=== PATIENT | female | born 1965 | race Caucasian/White ===

== ENCOUNTER 2020-08-18 11:35 | Outpatient (REF) | payer MEDICARE, OTHER, SELFPAY ==
--- NOTE | 2020-08-18 11:39 | CT_ITS ---
EXAMINATION: CT CHEST WITHOUT CONTRAST CLINICAL INFORMATION: Follow-up pulmonary nodule COMPARISON: Previous chest CT most recent January 2020 TECHNIQUE: Multidetector volumetric CT imaging of the chest was done. Axial MIP volume rendering provided. Sagittal and coronal reformatted images were obtained. This CT examination was performed using dose optimization techniques as appropriate, variously including the following: *Automated exposure control *Adjustment of mA and/or kV according to patient size (this includes techniques or standardized protocols for targeted exams where dose is matched to indication/reason for exam; i.e. extremities or head) *Use of iterative reconstruction technique DLP: 99 mGy-cm FINDINGS: LUNGS: There is evidence of emphysema. There is increased groundglass attenuation and clustered small nodules seen in the anterior segment of the right upper lobe. This appears increased in the superiorly right upper lobe for example axial image 163 series 5 and is new more inferiorly for example axial image 194 series 5. Largest discrete nodule measures 3 mm in the right upper lobe axial image 154 series 5. There are bilateral calcified and noncalcified pulmonary nodules similar to January [address] Largest right pulmonary nodules are a noncalcified 4 mm in the right lower lobe axial image 309 series 5 and a calcified 4 mm right middle lobe nodule axial image 349 series 5. Largest left pulmonary nodule is a calcified left lower lobe nodule axial image 4 of series 5. There is a scarring or chronic subsegmental atelectasis at the lung bases that is stable. MEDIASTINUM: There are calcified and noncalcified mediastinal lymph nodes that are stable. The heart is upper normal in size. There is a small pericardial effusion or pericardial thickening that is unchanged. There is a question of coronary artery stent. The thoracic aorta is normal in caliber. PLEURA: There is no pleural effusion. No pleural mass or thickening. AXILLA: No chest wall mass or enlarged axillary lymph nodes are seen. UPPER ABDOMEN: Unremarkable. OSSEOUS STRUCTURES: There are degenerative changes of the spine. CT/CT chest wo con IMPRESSION: New and areas of groundglass attenuation and small clustered nodules, largest measuring 3 mm, in the anterior segment of the right upper lobe. Otherwise calcified and noncalcified pulmonary nodules are stable. Emphysema. Stable bibasilar atelectasis. Stable small pericardial effusion or thickening.
== END 2020-08-18 11:36 | disposition home or self-care (01) ==
LOC: HO.CT 11:35
PROVIDERS: PCP Nurse Practitioner Family; Visit Provider Surgery
DX: R91.8 Other nonspecific abnormal finding of lung field (principal)
CPT/HCPCS: 71250

== ENCOUNTER → 2020-09-12 09:34 | Outpatient (BNVA) | payer MEDICARE, OTHER, SELFPAY | PROVIDERS: PCP Nurse Practitioner Family; Visit Provider Surgery | DX: K21.9 Gastro-esophageal reflux disease without esophagitis (principal); K44.9 Diaphragmatic hernia without obstruction or gangrene; R91.8 Other nonspecific abnormal finding of lung field | CPT/HCPCS: 99215 ==

== ENCOUNTER → 2020-09-19 09:06 | Outpatient (BNVA) | payer MEDICARE, OTHER, SELFPAY | PROVIDERS: PCP Nurse Practitioner Family; Visit Provider Nurse Practitioner | DX: Z13.89 Encounter for screening for other disorder (principal) | CPT/HCPCS: 99212 ==

== ENCOUNTER → 2020-10-31 10:32 | Outpatient (BNVA) | payer MEDICARE, OTHER, SELFPAY | PROVIDERS: PCP Nurse Practitioner Family; Visit Provider Surgery | DX: K21.9 Gastro-esophageal reflux disease without esophagitis (principal); K44.9 Diaphragmatic hernia without obstruction or gangrene | CPT/HCPCS: 99212 ==

== ENCOUNTER 2020-11-10 10:00 | Day surgery (SDC) | payer MEDICARE, OTHER, SELFPAY ==
[2020-11-10 10:55] VITALS: BP 116/81; PULSE 71; RESP 18; TEMP 36.3; O2SAT 96; BMI 24.8
--- NOTE | 2020-11-10 10:56 | W.PM.OPN ---
Operative Note Operative Note Date of Service: 11/10/20 Narrative: Pre-op diagnosis: GERD, dysphagia Post-op diagnosis: other (Dysphagia, gastritis) Procedure: FLEXIBLE TRANSORAL UPPER GASTROINTESTINAL ENDOSCOPY WITH BIOPSIES AND ESOPHAGEAL BALLOON DILATION Consent: Indications for the procedure and potential complications of bleeding, perforation, reaction to medications and missed diagnosis were discussed with the patient and informed consent was obtained. Instrument: Olympus GIF H 190 mid size upper endoscope Monitoring: Vital signs and clinical assessment, continuous EKG monitoring, Pulse oximetry, Carbon Dioxide monitoring and blood pressure monitoring were done throughout the procedure. Procedure: The patient was placed in the left lateral decubitis position and pre-procedure medications were administered and a bite block was placed. The endoscope was inserted into the mouth and advanced under direct vision to the third part of duodenum. A careful inspection was made as the upper endoscope was withdrawn including a retroflexed examination of the proximal stomach; Findings and interventions are described below. Findings: Larynx: Edema of arytenoid cartilages Esophagus: Tortuous esophagus with increased tertiary contractions without stricture or ring. GE junction at 35 cms. Minimal focal esophagitis at GE junction. Empiric balloon dilation was performed with 19 mm (57 F) CRE balloon x 60 seconds. Stomach: Small amount of retained food in the stomach. Moderate gastric erythema. Biopsies were obtained. Grade 2 flap valve on retroflexed examination of the cardia. Duodenum: Normal bulb and descending duodenum Intervention: Biopsies as noted above Impression and Post Procedure Diagnosis: Endoscopy Findings: LARYNX: Changes suggestive of LPRD ESOPHAGUS: Tortuous esophagus with increased tertiary contractions without stricture or ring. GE junction at 35 cms. Minimal focal esophagitis at GE junction. Empiric balloon dilation was performed with 19 mm (57 F) CRE balloon x 60 seconds. STOMACH: Gastritis with small amount of retained food Plan: Await pathology results Patient has an appointment on 11/14/20 in the GI Clinic with Gisella Sparks NP . Consider obtaining a Gastric emptying study to rule out gastroparesis. Above findings were reviewed with the patient and GERD handout was given in the discharge area Surgeon: Je Wolff MD Anesthesia: MAC (Nataly Cuff, PAN [employer] HELPER) Estimated blood loss (mL): 0 Pathology: other (A. Gastric antrum) Condition: stable Disposition: PACU
--- NOTE | 2020-11-10 10:56 | MHC.SHP ---
Pre-Procedural Eval Section A The patient is an INPATIENT: No The History & Physical has been completed within 30 days and I have reviewed it.: No Section B Chief Complaint: dysphagia Details of Present Illness: GERD, dysphagia Relevant Family History (Specify if Yes): Yes Relevant Social History: Tobacco Use (current smoker) Present Medications: see Short Stay Collaborative assessment Medical History: Significant History (CAD (coronary artery disease) Cerebral atrophy COPD (chronic obstructive pulmonary disease) Depression Hyperlipidemia Hypertension Hypothyroid Intracranial arachnoid cyst Lumbar radiculitis Lumbar stenosis Lumbosacral pain Myocardial infarct Osteoporosis Seizure) History of Previous Operations: Relevant previous surgery/procedure and date(s) (H/O heart artery stent History of esophagogastroduodenoscopy (EGD) Hx of colonoscopy) Allergies: Allergies Allergy/AdvReac Type Severity Reaction Status Date / Time alendronate sodium Allergy Unknown PER H+P Verified 10/31/20 11:05 [From FOSAMAX] latex [LATEX] Allergy Unknown RASH Verified 10/31/20 11:05 levetiracetam [From KEPPRA] Allergy Unknown DICKENS Verified 10/31/20 11:05 morphine [MORPHINE] Allergy Unknown SWELLING Verified 10/31/20 11:05 phenytoin [From DILANTIN] AdvReac Unknown CANT Verified 10/31/20 11:05 FUNCTION Review of Systems Sugical H&P ROS: Negative: Constitution, Cardiovascular and Respiratory and Yes, Specify: Gastrointestinal (heartburn and dysphagia) Exam Surgical H&P Exam: Normal: Heart, Normal: Lungs, Normal: Extremities and Normal: Abdomen Plan Diagnosis/Plan: Unchanged I have reviewed the history and physical and performed a pertinent physical examination on my patient. No changes have occurred unless specified.
--- NOTE | 2020-11-10 11:08 | P.CONAN_ITS ---
[facility] Past Medical History Medical History CAD (coronary artery disease) Cerebral atrophy COPD (chronic obstructive pulmonary disease) Depression Hyperlipidemia Hypertension Hypothyroid Intracranial arachnoid cyst Lumbar radiculitis Lumbar stenosis Lumbosacral pain Myocardial infarct Osteoporosis Seizure Family History Family History Father Blood clots in brain Diabetes Polio Mother Breast cancer Hiatal hernia Sister Cancer Brother Myocardial infarction Family/Other Throat cancer Stomach cancer Surgical History Surgical History H/O heart artery stent History of esophagogastroduodenoscopy (EGD) History of [place] fundoplication Hx of colonoscopy Hx of esophageal hernia repair Social History Social History Alcohol intake: current Alcohol intake frequency: does not drink Smoking Status: Former smoker Tobacco Type: Cigarette Packs Per Day: 0.5 Years Smoked: 42 Use of substances other than those prescribed or required for medical reasons: No Advance Directives: No Advance Directives Information Provided: Yes Meds Allergies Allergy/AdvReac Type Severity Reaction Status Date / Time alendronate sodium Allergy Unknown PER H+P Verified 10/31/20 11:05 [From FOSAMAX] latex [LATEX] Allergy Unknown RASH Verified 10/31/20 11:05 levetiracetam [From KEPPRA] Allergy Unknown DICKENS Verified 10/31/20 11:05 morphine [MORPHINE] Allergy Unknown SWELLING Verified 10/31/20 11:05 phenytoin [From DILANTIN] AdvReac Unknown CANT Verified 10/31/20 11:05 FUNCTION Home Medications Medication Instructions Recorded Confirmed Type atorvastatin 80 mg tablet mg PO 09/12/20 History clonazepam 0.5 mg tablet mg PO 09/12/20 History diclofenac sodium 75 mg mg PO 09/12/20 History tablet,delayed release divalproex 500 mg tablet,extended mg PO 09/12/20 History release 24 hr ferrous sulfate 325 mg (65 mg mg PO 09/12/20 History iron) tablet levothyroxine 88 mcg tablet mcg PO 09/12/20 History metoprolol succinate 25 mg mg PO 09/12/20 History tablet,extended release 24 hr mirtazapine 45 mg tablet mg PO 09/12/20 History quetiapine 300 mg tablet,extended mg PO 09/12/20 History release 24 hr sertraline 100 mg tablet mg PO 09/12/20 History zolpidem 5 mg tablet mg PO 09/12/20 History hyoscyamine sulfate 0.125 mg/mL 1 ml PO QIDACHS 09/18/20 09/18/20 History oral drops pantoprazole 40 mg tablet,delayed 40 mg PO DAILY 09/18/20 09/18/20 History release Exam Exam Date and Time: November 10, 2020 1108 Height,Weight and Vital Signs: Height 4 ft 9 in Weight 52.163 kg Last Vital Signs Temp 97.3 F 11/10/20 10:55 Pulse 71 11/10/20 10:55 Resp 18 11/10/20 10:55 BP 116/81 11/10/20 10:55 Pulse Ox 96 11/10/20 10:55 Airway Mallampati Class: II TM Dist: >3cm Neck ROM: Full Denture: Upper and Lower Loose/Missing/Broken Teeth: Yes Heart: [id number] Lungs: cta b/l Assessment and Plan Assessment Anesthesia Assessment: Anesthesia Plan Discussed, PAT Visit and Chart Reviewed Final Anesthetic Review NPO: Yes ASA Class: II Final Preanesthetic Review: No Changes in Pt Med Stat, Meds/Allgs Chart Reviewed, Consent Obtained/Reviewed and Anes Risks/Benef Reviewed Patient Risk: Low Procedure Risk: Low Assessment/Block/Sedation in SS: Assess/Block/Sedation-SS Anesthetic Plan Anesthetic Plan: MAC: Disposition: Standard PACU
--- NOTE | 2020-11-10 11:10 | MHC.SHP ---
Pre-Procedural Eval Section B Chief Complaint: dysphagia Allergies: Allergies Allergy/AdvReac Type Severity Reaction Status Date / Time alendronate sodium Allergy Unknown PER H+P Verified 10/31/20 11:05 [From FOSAMAX] latex [LATEX] Allergy Unknown RASH Verified 10/31/20 11:05 levetiracetam [From KEPPRA] Allergy Unknown DICKENS Verified 10/31/20 11:05 morphine [MORPHINE] Allergy Unknown SWELLING Verified 10/31/20 11:05 phenytoin [From DILANTIN] AdvReac Unknown CANT Verified 10/31/20 11:05 FUNCTION Plan I have reviewed the history and physical and performed a pertinent physical examination on my patient. No changes have occurred unless specified.
[2020-11-10 11:54] VITALS: BP 96/63; PULSE 80; RESP 16; TEMP 36.7; O2SAT 99
[2020-11-10 12:09] VITALS: BP 121/78; PULSE 76; RESP 17; TEMP 36.7; O2SAT 99
== END 2020-11-10 12:22 | disposition home or self-care (01) ==
PROVIDERS: PCP Nurse Practitioner Family; Visit Provider Internal Medicine Gastroenterology
PROC: 0DJ08ZZ Inspection of Upper Intestinal Tract, Via Natural or Artificial Opening Endoscopic (ICD-10-PCS; CPT 43235; principal; 2020-11-10 11:20)
DX: R10.13 Epigastric pain (principal); K22.4 Dyskinesia of esophagus; K22.8 Other specified diseases of esophagus; K21.00 Gastro-esophageal reflux disease with esophagitis, without bleeding; K29.70 Gastritis, unspecified, without bleeding; I10 Essential (primary) hypertension; J44.9 Chronic obstructive pulmonary disease, unspecified; I25.2 Old myocardial infarction; I25.10 Atherosclerotic heart disease of native coronary artery without angina pectoris; Z98.61 Coronary angioplasty status; R56.9 Unspecified convulsions; Z79.899 Other long term (current) drug therapy; F17.210 Nicotine dependence, cigarettes, uncomplicated; Z91.040 Latex allergy status; Z88.0 Allergy status to penicillin
CPT/HCPCS: 43249; 43239; 88305; 88342; C1726

== ENCOUNTER 2020-11-14 09:53 | Outpatient (REF) | payer MEDICARE, OTHER, SELFPAY ==
--- NOTE | ~2020-11-14 | FL_ITS ---
EXAMINATION: FL BARIUM SWALLOW CLINICAL INFORMATION: Gastroesophageal reflux disease without esophagitis. COMPARISON: None TECHNIQUE: Barium swallow examination is performed using fluoroscopic evaluation in addition to multiple fluoroscopic spot views. The patient is imaged both upright and prone and using both thick and thin sulfate along with effervescent granules. Fluoroscopy time: 2.7 minutes DAP: 9.988 Gycm2 Images: 79 FINDINGS: Following oral administration of thick barium and barium-coated turkey, there is normal propagation of bolus from the oral cavity through the pharynx into esophagus without any evidence of obstruction or narrowing. There is mild spasm at the GE junction resulting in mild holdup of thin barium and solids. No laryngeal penetration or aspiration seen. On oral administration of barium tablet, there is transitional holdup above the GE junction. Subsequently, the barium tablet cleared on placing patient in prone position. On administration of thin barium in prone position, there is good distention of the entire esophagus without any intrinsic or extrinsic compression. No gastroesophageal reflux or hiatal hernia seen. FL/FL barium swallow IMPRESSION: Transitional holdup of solids, liquids and barium tablet at the GE junction could be secondary to spasm. Underlying stricture cannot be excluded.
== END 2020-11-14 09:54 | disposition home or self-care (01) ==
LOC: HO.XRAY 09:53
PROVIDERS: PCP Nurse Practitioner Family; Visit Provider Surgery
DX: K21.9 Gastro-esophageal reflux disease without esophagitis (principal); K44.9 Diaphragmatic hernia without obstruction or gangrene
CPT/HCPCS: 74220; 99212; Q3014

== ENCOUNTER → 2020-12-12 10:07 | Outpatient (BNVA) | payer MEDICARE, SELFPAY | PROVIDERS: PCP Nurse Practitioner Family; Visit Provider Surgery | DX: R13.10 Dysphagia, unspecified (principal); K21.00 Gastro-esophageal reflux disease with esophagitis, without bleeding; F17.210 Nicotine dependence, cigarettes, uncomplicated; Z79.899 Other long term (current) drug therapy | CPT/HCPCS: 99212 ==

== ENCOUNTER 2021-01-01 09:57 | Outpatient (REF) | payer MEDICARE, OTHER, SELFPAY ==
--- NOTE | ~2021-01-01 | FL_ITS ---
EXAMINATION: FL BARIUM SWALLOW CLINICAL INFORMATION: Gastroesophageal reflux disease with esophagitis COMPARISON: 11/14/2020 TECHNIQUE: Barium swallow examination is performed using fluoroscopic evaluation in addition to multiple fluoroscopic spot views. The patient is imaged both upright and prone and using both thick and thin sulfate along with effervescent granules. Fluoroscopy time: 1.6 minutes DAP: 2.150 Gycm2 Images: 38 FINDINGS: There is normal apposition of the vocal cords while saying E. There is normal elevation of the soft palate while saying candy. Patient swallowed thin and thick barium and 1/2 inch diameter barium tablet during the study. There is no evidence of nasopharyngeal reflux or tracheal aspiration. Cricopharyngeal hypertrophy is present without Zenker's diverticulum. No persistent esophageal stricture is identified. There is narrowing at the level of the gastroesophageal junction with delay of emptying of the esophagus of fluid with air-fluid level and distention of the distal esophagus noted. Eventually the gastroesophageal junction relaxes and contrast passes. Half-inch diameter barium tablet was hung up at the level of obstruction likely related to gastroesophageal junction spasm and passed within 10 minutes of ingestion. No persistent stricture was identified and no erosive change was seen. No gastroesophageal reflux was elicited during the study including with water siphon test. FL/FL barium swallow IMPRESSION: Esophagram with holdup of contrast and barium tablet at the gastroesophageal junction which appears to be related to spasm as described.
== END 2021-01-01 09:58 | disposition home or self-care (01) ==
LOC: HO.XRAY 09:57
PROVIDERS: PCP Nurse Practitioner Family; Visit Provider Surgery
DX: K21.00 Gastro-esophageal reflux disease with esophagitis, without bleeding (principal)
CPT/HCPCS: 74220

== ENCOUNTER → 2021-01-02 09:48 | Outpatient (BNVA) | payer MEDICARE, OTHER, SELFPAY | PROVIDERS: PCP Nurse Practitioner Family; Visit Provider Surgery | DX: R13.10 Dysphagia, unspecified (principal); K21.00 Gastro-esophageal reflux disease with esophagitis, without bleeding; K22.4 Dyskinesia of esophagus | CPT/HCPCS: 99212 ==

== ENCOUNTER 2021-01-23 11:11 | Day surgery (SDC) | payer MEDICARE, SELFPAY ==
[2021-01-19 13:54] VITALS: BMI 24.7
--- NOTE | 2021-01-21 13:01 | HO.ANESPROP2 ---
Documented by User: Sue Christina 01/21/21 13:02 HPI - Anesthesia Eval Consult details Narrative: 55yo F for Upper Endoscopy with Balloon Dilitation s/p paraesoph hernia repair and belgica fund 11/2020 s/p EGD with dilation 11/2020 with MAC PMFSH Active Problems Active Problems: All Active Problems (Updated 01/19/21 @ 13:50 by Kaycee Quinn) Multiple pulmonary nodules (Acute) GERD with esophagitis (Acute) Esophageal spasm (Acute) Dysphagia (Acute) Past Medical History Medical History CAD (coronary artery disease) Cerebral atrophy COPD (chronic obstructive pulmonary disease) Depression Hyperlipidemia Hypertension Hypothyroid Intracranial arachnoid cyst Lumbar radiculitis Lumbar stenosis Lumbosacral pain Myocardial infarct Osteoporosis Seizure Family History Family History Father Blood clots in brain Diabetes Polio Mother Breast cancer Hiatal hernia Sister Cancer Brother Myocardial infarction Family/Other Throat cancer Stomach cancer Surgical History Surgical History H/O heart artery stent History of esophagogastroduodenoscopy (EGD) History of [place] fundoplication Hx of colonoscopy Social History Social History Household Members: Other Alcohol intake: current Alcohol intake frequency: does not drink Smoking Status: Current every day smoker Tobacco Type: Cigarette Cigarettes Per Day: 10 Years Smoked: 42 Use of substances other than those prescribed or required for medical reasons: No Advance Directives Information Provided: No Recently lost weight without trying: No Meds Allergies Allergy/AdvReac Type Severity Reaction Status Date / Time latex [LATEX] Allergy Intermediate RASH Verified 01/19/21 13:50 morphine [MORPHINE] Allergy Intermediate SWELLING Verified 01/19/21 13:50 alendronate sodium Allergy Unknown PER H+P Verified 01/02/21 10:01 [From FOSAMAX] levetiracetam [From KEPPRA] AdvReac Intermediate DICKENS Verified 01/19/21 13:50 phenytoin [From DILANTIN] AdvReac Intermediate CANT Verified 01/19/21 13:50 FUNCTION Home Medications Medication Instructions Recorded Confirmed Last Taken Type clonazepam 0.5 mg tablet 0.5 mg PO DAILY PRN 09/12/20 01/19/21 Unknown History diclofenac sodium 75 mg 75 mg PO BID 09/12/20 01/19/21 Unknown History tablet,delayed release divalproex 500 mg tablet,extended 500 mg PO BID 09/12/20 01/19/21 01/23/21 History release 24 hr ferrous sulfate 325 mg (65 mg mg PO 09/12/20 01/02/21 Unknown History iron) tablet levothyroxine 88 mcg tablet 88 mcg PO DAILY 09/12/20 01/19/21 01/23/21 History metoprolol succinate 25 mg 5 mg PO DAILY 09/12/20 01/19/21 Unknown History tablet,extended release 24 hr mirtazapine 45 mg tablet 45 mg PO BEDTIME 09/12/20 01/19/21 Unknown History quetiapine 300 mg tablet,extended 300 mg PO BEDTIME 09/12/20 01/19/21 Unknown History release 24 hr sertraline 100 mg tablet 200 mg PO QAM 09/12/20 01/19/21 01/23/21 History zolpidem 5 mg tablet 5 mg PO BEDTIME 09/12/20 01/19/21 Unknown History hyoscyamine sulfate 0.125 mg/mL 1 ml PO QIDACHS 09/18/20 01/02/21 Unknown History oral drops Exam Exam Date and Time: January 21, 2021 1301 Height,Weight and Vital Signs: Height 4 ft 9 in Weight 52 kg Assessment and Plan Assessment Anesthesia Assessment: Chart Reviewed Documented by User: Juan Pablo Gary MD 01/23/21 12:31 HPI - Anesthesia Eval Consult details Narrative: Exercise Tolerance 2 METS PMFSH Past Medical History Medical History CAD (coronary artery disease) Cerebral atrophy COPD (chronic obstructive pulmonary disease) Depression Hyperlipidemia Hypertension Hypothyroid Intracranial arachnoid cyst Lumbar radiculitis Lumbar stenosis Lumbosacral pain Myocardial infarct Osteoporosis Seizure Family History Family History Father Blood clots in brain Diabetes Polio Mother Breast cancer Hiatal hernia Sister Cancer Brother Myocardial infarction Family/Other Throat cancer Stomach cancer Surgical History Surgical History H/O heart artery stent History of esophagogastroduodenoscopy (EGD) History of [place] fundoplication Hx of colonoscopy Social History Social History Household Members: Other Alcohol intake: current Alcohol intake frequency: does not drink Smoking Status: Current every day smoker Tobacco Type: Cigarette Cigarettes Per Day: 10 Years Smoked: 42 Use of substances other than those prescribed or required for medical reasons: No Advance Directives Information Provided: No Recently lost weight without trying: No Meds Allergies Allergy/AdvReac Type Severity Reaction Status Date / Time latex [LATEX] Allergy Intermediate RASH Verified 01/19/21 13:50 morphine [MORPHINE] Allergy Intermediate SWELLING Verified 01/19/21 13:50 alendronate sodium Allergy Unknown PER H+P Verified 01/02/21 10:01 [From FOSAMAX] levetiracetam [From KEPPRA] AdvReac Intermediate DICKENS Verified 01/19/21 13:50 phenytoin [From DILANTIN] AdvReac Intermediate CANT Verified 01/19/21 13:50 FUNCTION Home Medications Medication Instructions Recorded Confirmed Last Taken Type clonazepam 0.5 mg tablet 0.5 mg PO DAILY PRN 09/12/20 01/19/21 Unknown History diclofenac sodium 75 mg 75 mg PO BID 09/12/20 01/19/21 Unknown History tablet,delayed release divalproex 500 mg tablet,extended 500 mg PO BID 09/12/20 01/19/21 01/23/21 History release 24 hr ferrous sulfate 325 mg (65 mg mg PO 09/12/20 01/02/21 Unknown History iron) tablet levothyroxine 88 mcg tablet 88 mcg PO DAILY 09/12/20 01/19/21 01/23/21 History metoprolol succinate 25 mg 5 mg PO DAILY 09/12/20 01/19/21 Unknown History tablet,extended release 24 hr mirtazapine 45 mg tablet 45 mg PO BEDTIME 12/04/20 04/12/21 Unknown History quetiapine 300 mg tablet,extended 300 mg PO BEDTIME 09/12/20 01/19/21 Unknown History release 24 hr sertraline 100 mg tablet 200 mg PO QAM 09/12/20 01/19/21 01/23/21 History zolpidem 5 mg tablet 5 mg PO BEDTIME 09/12/20 01/19/21 Unknown History hyoscyamine sulfate 0.125 mg/mL 1 ml PO QIDACHS 09/18/20 01/02/21 Unknown History oral drops Exam Airway Mallampati Class: III TM Dist: >3cm Denture: Upper and Lower Loose/Missing/Broken Teeth: Yes Heart: RRR Lungs: NL Assessment and Plan Assessment Anesthesia Assessment: Anesthesia Plan Discussed and Chart Reviewed Final Anesthetic Review NPO: Yes ASA Class: III Final Preanesthetic Review: No Changes in Pt Med Stat, Meds/Allgs Chart Reviewed, Consent Obtained/Reviewed and Anes Risks/Benef Reviewed Patient Risk: Intermediate Procedure Risk: Low Anesthetic Plan Anesthetic Plan: MAC: Disposition: Standard PACU
[2021-01-23 11:22] VITALS: BP 112/81; PULSE 89; RESP 20; TEMP 36.1; O2SAT 96
[2021-01-23] MEDS: Lactated Ringers 1,000 ML 50 ML IV (11:40)
--- NOTE | 2021-01-23 11:46 | MHC.SHP ---
Pre-Procedural Eval Section B Chief Complaint: dysphagia Allergies: Allergies Allergy/AdvReac Type Severity Reaction Status Date / Time latex [LATEX] Allergy Intermediate RASH Verified 01/19/21 13:50 morphine [MORPHINE] Allergy Intermediate SWELLING Verified 01/19/21 13:50 alendronate sodium Allergy Unknown PER H+P Verified 01/02/21 10:01 [From FOSAMAX] levetiracetam [From KEPPRA] AdvReac Intermediate DICKENS Verified 01/19/21 13:50 phenytoin [From DILANTIN] AdvReac Intermediate CANT Verified 01/19/21 13:50 FUNCTION Plan I have reviewed the history and physical and performed a pertinent physical examination on my patient. No changes have occurred unless specified.
[2021-01-23 12:55] VITALS: BP 123/83; PULSE 75; RESP 22; TEMP 36.8; O2SAT 97
[2021-01-23 13:10] VITALS: BP 121/80; PULSE 67; RESP 18; O2SAT 95
--- NOTE | 2021-01-23 13:59 | OP_ITS ---
DATE: 01/23/2021 SURGEON: Eugenie Pena MD PREOPERATIVE DIAGNOSIS: POSTOPERATIVE DIAGNOSIS: PROCEDURE PERFORMED: ESTIMATED BLOOD LOSS: None. COMPLICATIONS: ANESTHESIA: MAC. ASSISTANTS: SPECIMENS: None. PREOPERATIVE DIAGNOSES: Esophageal stricture, status post fundoplication and hiatal hernia repair. DESCRIPTION OF PROCEDURE: On the day of the operation, the patient was brought to the operating room and placed supine on the operative room table. Anesthesia and monitoring devices were placed and the patient was gently sedated. She was turned to her side and a time-out was performed confirming the correct patient, site and procedure. The scope was then inserted through the oropharynx and into the esophagus and passed down to the GE junction, which was at about 33 cm. There was some mild erosion at the GE junction. No bleeding. The scope then entered the stomach, visualizing the pylorus and first portion of the duodenum which were normal. The scope was then retroflexed, visualizing the GE junction, which was normal and the scope was brought back through the GE junction, which there was a little bit of tightness at this area. The scope was then brought back to about 28 cm and the first balloon was then positioned across the stricture and starting at 15 dilated with this balloon up to 18 mm. This balloon was then removed and the area was checked and there was no bleeding or tissue damage. We then placed the 18, 19, 20 balloon across the same lesion and this was dilated serially from 18 to 19 to 20 mm. Once this was done, there was a small amount of blood and the scope did pass easier through this area now. The scope was then brought back from the stomach through the esophagus to examine the mucosa, which was normal. The esophagus did appear quite baggy at this point and tortuous. The scope was then removed. The patient tolerated the procedure well and was brought to the recovery room in stable condition. MD JULITA Bird/NAOMI / [id number] MTDTawanna
== END 2021-01-23 13:57 | disposition home or self-care (01) ==
PROVIDERS: PCP Nurse Practitioner Family; Visit Provider Surgery
PROC: (CPT 43249; principal; 2021-01-23 12:00)
DX: K22.2 Esophageal obstruction (principal); Z98.890 Other specified postprocedural states; K22.4 Dyskinesia of esophagus; K21.00 Gastro-esophageal reflux disease with esophagitis, without bleeding; K44.9 Diaphragmatic hernia without obstruction or gangrene; J44.9 Chronic obstructive pulmonary disease, unspecified; I10 Essential (primary) hypertension; Z79.82 Long term (current) use of aspirin; Z79.899 Other long term (current) drug therapy; Z91.040 Latex allergy status; Z88.8 Allergy status to other drugs, medicaments and biological substances; F17.210 Nicotine dependence, cigarettes, uncomplicated
CPT/HCPCS: 43249; C1726

== ENCOUNTER → 2021-02-06 10:07 | Outpatient (BNVA) | payer MEDICARE, SELFPAY | PROVIDERS: PCP Nurse Practitioner Family; Visit Provider Surgery | DX: K22.4 Dyskinesia of esophagus (principal); R13.10 Dysphagia, unspecified; Z87.19 Personal history of other diseases of the digestive system; Z79.899 Other long term (current) drug therapy | CPT/HCPCS: 99212 ==

== ENCOUNTER → 2021-02-10 13:47 | Outpatient (BNVA) | payer MEDICARE, SELFPAY | PROVIDERS: Visit Provider Nurse Practitioner | DX: Z13.89 Encounter for screening for other disorder (principal) | CPT/HCPCS: Q3014 ==

== ENCOUNTER → 2021-04-28 15:17 | Outpatient (BNVA) | payer MEDICARE, SELFPAY | PROVIDERS: Visit Provider Nurse Practitioner ==

== ENCOUNTER → 2021-05-01 10:37 | Outpatient (BNVA) | payer MEDICARE, SELFPAY | PROVIDERS: PCP Nurse Practitioner Family; Visit Provider Surgery | DX: K22.2 Esophageal obstruction (principal); F17.210 Nicotine dependence, cigarettes, uncomplicated; Z79.899 Other long term (current) drug therapy | CPT/HCPCS: 99212 ==

== ENCOUNTER 2021-06-05 06:40 | Day surgery (SDC) | payer MEDICARE, OTHER, SELFPAY ==
[2021-06-05 06:47] VITALS: BMI 23.8
--- NOTE | 2021-06-05 07:04 | HO.ANESPROP2 ---
HPI - Anesthesia Eval Consult details Narrative: Full covid vaccination. PMFSH Active Problems Active Problems: All Active Problems (Updated 06/02/21 @ 12:48 by Kassidy Gurrola PA-C) GERD with esophagitis (Acute) Esophageal spasm (Acute) Dysphagia (Acute) Epigastric pain (Acute) Esophageal stricture (Acute) Multiple pulmonary nodules (Acute) Past Medical History Medical History (Updated 06/02/21 @ 12:48 by Kassidy Gurrola PA-C) CAD (coronary artery disease) Cerebral atrophy COPD (chronic obstructive pulmonary disease) Depression Hyperlipidemia Hypertension Hypothyroid Intracranial arachnoid cyst Lumbar radiculitis Lumbar stenosis Lumbosacral pain Multiple pulmonary nodules Myocardial infarct Nicotine dependence, unspecified, uncomplicated On beta matty at home Osteoporosis Seizure Tubular adenoma of colon Family History Family History Father Blood clots in brain Diabetes Polio Mother Breast cancer Hiatal hernia Sister Cancer Brother Myocardial infarction Family/Other Throat cancer Stomach cancer Family history of problems with anesthesia: No Surgical History Surgical History (Updated 06/02/21 @ 12:50 by Kassidy Gurrola PA-C) History of appendectomy History of colonoscopy (~2018) History of esophagogastroduodenoscopy (EGD) (~2020) History of foot surgery (~2013) History of heart artery stent (~2004) History of [place] fundoplication (~2019) History of tubal ligation S/P dilatation of esophageal stricture (~2020) History of Problems with Anesthesia: No Social History Social History Household Members: Other Alcohol intake: current Alcohol intake frequency: does not drink Patient Tobacco Use Status: Current everyday Tobacco user Tobacco use type: Cigarette Cigarettes Per Day: 10.0 Years Smoked: 42 Use of substances other than those prescribed or required for medical reasons: No Are you DNR?: No Advance Directives: No Advance Directives Information Provided: Yes Advance Directives on File: No Meds Allergies Allergy/AdvReac Type Severity Reaction Status Date / Time latex [LATEX] Allergy Intermediate RASH Verified 05/28/21 15:12 morphine [MORPHINE] Allergy Intermediate SWELLING Verified 05/28/21 15:12 alendronate sodium Allergy Unknown PER H+P Verified 05/28/21 15:12 [From FOSAMAX] levetiracetam [From KEPPRA] AdvReac Intermediate DICKENS Verified 05/28/21 15:12 phenytoin [From DILANTIN] AdvReac Intermediate CANT Verified 05/28/21 15:12 FUNCTION Home Medications Medication Instructions Recorded Confirmed Last Taken Type clonazepam 0.5 mg tablet 0.5 mg PO DAILY PRN 09/12/20 05/28/21 06/04/21 History levothyroxine 88 mcg tablet 88 mcg PO DAILY 09/12/20 05/28/21 06/04/21 History metoprolol succinate 25 mg 5 mg PO DAILY 09/12/20 05/28/21 06/05/21 05:00 History tablet,extended release 24 hr mirtazapine 45 mg tablet 45 mg PO BEDTIME 09/12/20 05/28/21 06/04/21 History quetiapine 300 mg tablet,extended 300 mg PO BEDTIME 09/12/20 05/28/21 06/04/21 History release 24 hr zolpidem 5 mg tablet 5 mg PO BEDTIME 09/12/20 05/28/21 06/04/21 History divalproex 500 mg tablet,extended 500 mg PO BID 04/28/21 05/28/21 06/05/21 05:00 History release 24 hr sertraline 100 mg tablet 200 mg PO QAM 04/28/21 05/28/21 06/04/21 History Exam Exam Date and Time: June 05, 2021 0704 Height,Weight and Vital Signs: Height 4 ft 9 in Weight 49.895 kg Airway Mallampati Class: I TM Dist: >3cm Neck ROM: Full Denture: Upper and Lower Heart: ok Lungs: ok Assessment and Plan Assessment Anesthesia Assessment: Anesthesia Plan Discussed and Chart Reviewed Final Anesthetic Review Family History of Problems with Anesthesia: No History of Problems with Anesthesia: No NPO: Yes ASA Class: IV Final Preanesthetic Review: No Changes in Pt Med Stat, Meds/Allgs Chart Reviewed, Consent Obtained/Reviewed and Anes Risks/Benef Reviewed Patient Risk: High Procedure Risk: Intermediate Anesthetic Plan Anesthetic Plan: MAC: and Agree w/ Assess. and Plan Disposition: Standard PACU
[2021-06-05] MEDS: Lactated Ringers 1,000 ML 100 ML IVCONT (07:05)
[2021-06-05 07:06] VITALS: BP 117/84; PULSE 68; RESP 18; TEMP 36.1; O2SAT 97
[2021-06-05 07:08] LABS: Glucose, Whole Blood 82 mg/dL (60-115)
--- NOTE | 2021-06-05 08:19 | MHC.SHP ---
Pre-Procedural Eval Section A Date of Service: 06/05/21 The patient is an INPATIENT: No The History & Physical has been completed within 30 days and I have reviewed it.: No Section B Chief Complaint: obstruction Allergies: Allergies Allergy/AdvReac Type Severity Reaction Status Date / Time latex [LATEX] Allergy Intermediate RASH Verified 05/28/21 15:12 morphine [MORPHINE] Allergy Intermediate SWELLING Verified 05/28/21 15:12 alendronate sodium Allergy Unknown PER H+P Verified 05/28/21 15:12 [From FOSAMAX] levetiracetam [From KEPPRA] AdvReac Intermediate DICKENS Verified 05/28/21 15:12 phenytoin [From DILANTIN] AdvReac Intermediate CANT Verified 05/28/21 15:12 FUNCTION Plan Diagnosis/Plan: Unchanged I have reviewed the history and physical and performed a pertinent physical examination on my patient. No changes have occurred unless specified.
--- NOTE | 2021-06-05 08:44 | W.PM.OPN ---
Operative Note Operative Note Date of Service: 06/05/21 Narrative: Preoperative diagnosis: Esophageal stricture distal, history paraesophageal hernia repair Postoperative diagnosis: Same Operation: EGD with dilation Surgeon:Eugenie Pena MD [employer] To Door Salesperson: None Anesthesia: General Specimens: None EBL: Minimal Operation in detail: The patient was brought to the operating room, placed supine on the operative table, anesthesia monitoring devices were placed, and the patient was sedated. A time-out was performed confirming the correct patient, site, and procedure. The gastroscope was then inserted through the oropharynx and into the esophagus visualizing esophagus, GE junction, stomach mucosa, and 1st portion of the duodenum. The scope was then retroflexed in the stomach looking back up at the GE junction I did not appreciate a significant paraesophageal hernia recurrence. There are no lesions in the mucosa. At the GE junction there was possibly some esophagitis or pale colored mucosa possibly Brown's. There was a very slight stricture at the GE junction and the esophagus appeared quite large and baggy. The scope was positioned just above the GE junction/stricture. The balloon to lie a later was then inserted and positioned across the stricture. Balloon dilation was then done serially starting at 18 going to 19 and finishing at 20 mm. The balloon dilator was removed and the mucosa was again visualized with no evidence of injury. The scope was then removed. The patient tolerated the procedure well, and brought to the recovery room in stable condition.
[2021-06-05 08:52] VITALS: BP 83/52; PULSE 65; RESP 16; TEMP 36.2; O2SAT 94
[2021-06-05 09:07] VITALS: BP 114/62; PULSE 57; RESP 18; O2SAT 95
[2021-06-05 09:19] VITALS: BP 114/68; PULSE 53; RESP 18; O2SAT 95
== END 2021-06-05 08:44 | disposition home or self-care (01) ==
PROVIDERS: PCP Nurse Practitioner Family; Visit Provider Surgery
PROC: (CPT 43249; principal; 2021-06-05 07:30)
DX: K22.2 Esophageal obstruction (principal); I10 Essential (primary) hypertension; Z87.19 Personal history of other diseases of the digestive system
CPT/HCPCS: 43249; 82947; C1726; J2250; J3010

== ENCOUNTER → 2021-06-16 07:54 | Outpatient (REF) | payer MEDICARE, SELFPAY ==
--- NOTE | ~2021-06-16 | NM_ITS ---
EXAMINATION: RADIONUCLIDE SOLID FOOD GASTRIC EMPTYING 4-HOUR STUDY CLINICAL INFORMATION: Epigastric pain. COMPARISON: No previous gastric emptying study is available for comparison. TECHNIQUE: A standard meal consisting of 4 oz of Egg Beaters brand equivalent tagged with 610 microcuries Tc-99m Sulfur Colloid, 8 oz water and 2 slices of toast with jelly was administered orally to the patient. Images were obtained using a dual head gamma camera in the anterior and posterior projections over of the stomach immediately post ingestion and at hourly intervals up to 4 hours post ingestion. The anterior and posterior counts at each time interval were averaged using the geometric mean and expressed as percentage of the immediate post ingestion counts. FINDINGS: There is good visualization of activity in the stomach immediately post ingestion. As the study progresses, there is good clearance of activity from the stomach and visualization of progressively increasing small bowel activity. By the end of the study, there is almost no retention noted in the stomach. Retention in the stomach at each time interval was: 1 hour 63% (normal 37%-90%) 2 hours 17% (normal 30%-60%) 3 hours 9% 4 hours 4% (normal 0%-10%) NM/NM gastric emptying study IMPRESSION: Normal 4-hour solid food gastric emptying study.
== END ==
LOC: HO.NUCMED 07:54
PROVIDERS: Visit Provider Nurse Practitioner
DX: R10.13 Epigastric pain (principal)
CPT/HCPCS: 78264; A9541

== ENCOUNTER → 2021-06-26 10:49 | Outpatient (BNVA) | payer MEDICARE, SELFPAY | PROVIDERS: PCP Nurse Practitioner Family; Visit Provider Surgery | DX: K22.4 Dyskinesia of esophagus (principal); F17.210 Nicotine dependence, cigarettes, uncomplicated; Z79.899 Other long term (current) drug therapy | CPT/HCPCS: 99212 ==

== ENCOUNTER → 2021-06-29 15:58 | Outpatient (BNVA) | payer MEDICARE, SELFPAY | PROVIDERS: PCP Nurse Practitioner Family; Visit Provider Nurse Practitioner | DX: K22.4 Dyskinesia of esophagus (principal) | CPT/HCPCS: Q3014 ==

== ENCOUNTER → 2021-08-18 11:48 | Outpatient (BNVA) | payer MEDICARE, SELFPAY | PROVIDERS: PCP Nurse Practitioner Family; Referring Provider Nurse Practitioner Family; Visit Provider Nurse Practitioner | DX: K22.4 Dyskinesia of esophagus (principal); K21.00 Gastro-esophageal reflux disease with esophagitis, without bleeding | CPT/HCPCS: Q3014 ==

== ENCOUNTER 2021-12-03 11:40 | Outpatient (REF) | payer MEDICARE, SELFPAY ==
--- NOTE | ~2021-12-03 | XR_ITS ---
EXAMINATION: XR CHEST CLINICAL INFORMATION: Pleurodynia COMPARISON: August 18, 2020 CT and chest x-ray of March 20, 2019 TECHNIQUE: 2 views of the chest were obtained. FINDINGS: No definite acute parenchymal disease identified. There appears be some bibasilar scarring as well as chronic pleural-parenchymal disease with question minimal effusions. The cardiopericardial silhouette is mildly enlarged. No evidence of pulmonary edema. Coronary artery stent present. XR/XR chest 2V IMPRESSION: Bibasilar scarring with question small effusions versus chronic pleural-parenchymal disease. Cardiomegaly without pulmonary edema.
[2021-12-03 13:37] LABS: MANUAL DIFF FLAG NO
[2021-12-03 13:39] LABS: Basophils Percent Auto 0.6 % (0-2); Eosinophils Absolute Auto 0.1 X10*3/uL (0.0-0.4); Eosinophils Percent Auto 2.2 % (0-4); Hematocrit 42.8 % (37.0-47.0); Hemoglobin 14.3 g/dl (12.0-16.0); Imm Gran Abs Auto 0.03 X10*3/uL (0.00-0.03); Imm Gran Pct Auto 0.6 % (0.0-0.4); Lymphocytes Absolute Auto 1.9 X10*3/uL (1.2-4.9); Lymphocytes Percent Auto 40.3 % (20-40); Mean Corpuscular HGB Conc 33.4 g/dl (31.0-35.0); Mean Corpuscular Hemoglobin 33.6 pg (27.0-33.0); Mean Corpuscular Volume 100.7 fL (80.0-98.0); Mean Platelet Volume 10.1 fL (9.4-12.3); Monocytes Absolute Auto 0.5 X10*3/uL (0.1-1.2); Neutrophils Absolute Auto 2.1 x10*3/uL (2.0-8.3); Neutrophils Percent Auto 45.3 % (45-73); Platelet Count 244 X10*3/uL (160-400); Red Blood Count 4.25 X10*6/uL (4.20-5.50); Red Cell Distribution Width 13.5 % (11.0-16.0); White Blood Count 4.6 X10*3/uL (4.8-10.8)
[2021-12-03 14:02] LABS: Alanine Aminotransferase 7 U/L (0-31); Albumin Level 3.8 g/dL (3.5-5.0); Alkaline Phosphatase 95 U/L (39-117); Anion Gap 14 (12-20); Aspartate Amino Transferase 15 U/L (5-31); Bilirubin Total 0.3 mg/dL (0.0-1.0); Blood Urea Nitrogen 5 mg/dL (9-16); Calcium 8.6 mg/dL (8.4-10.2); Carbon Dioxide 29 mmol/L (22-29); Chloride 105 mmol/L (96-108); Cholesterol 213 mg/dL; Estimated Glomerular Filt Rate > 60; Glucose Fasting 74 mg/dL (60-99); HDL Cholesterol 64 mg/dL; LDL Cholesterol Calculated 128 mg/dl; Potassium 4.3 mmol/L (3.3-5.1); Sodium 144 mmol/L (135-145); Total Protein 6.3 g/dL (6.5-8.0); Triglycerides 108 mg/dL
[2021-12-03 14:04] LABS: Appearance Urine HAZY; Color Urine YELLOW; Glucose Urine UA NEG (NEG); Leukocyte Esterase Urine NEG (NEG); Nitrite Urine NEG (NEG); PH 7.5 (5.0-8.0); Specific Gravity - Urine 1.015 (1.005-1.025); UACC Culture Trigger NO; Urine Blood TRACE (NEG); Urine Ketones NEG (NEG); Urine Protein NEG (NEG-TRACE)
[2021-12-03 14:17] LABS: TSH reflex Free T4 3.39 uIU/mL (0.32-4.0)
[2021-12-03 14:27] LABS: Bacteria Urine 1+ /LPF; Squamous Epithelial Cell Urine 1+ /LPF; WBC Urine 0-2 /HPF (0-4)
== END 2021-12-03 11:41 | disposition home or self-care (01) ==
LOC: HO.HMGCLDS 11:40
PROVIDERS: Visit Provider Nurse Practitioner Family
DX: R07.81 Pleurodynia (principal); E03.9 Hypothyroidism, unspecified
CPT/HCPCS: 36415; 71046; 80053; 80061; 81001; 81003; 84443; 85025

== ENCOUNTER → 2021-12-18 10:41 | Outpatient (BNVA) | payer MEDICARE, SELFPAY | PROVIDERS: PCP Nurse Practitioner Family; Referring Provider Nurse Practitioner Family; Visit Provider Nurse Practitioner | DX: K21.00 Gastro-esophageal reflux disease with esophagitis, without bleeding (principal); K22.2 Esophageal obstruction; K30 Functional dyspepsia | CPT/HCPCS: 99212 ==

== ENCOUNTER → 2022-03-02 13:41 | Outpatient (REF) | payer MEDICARE, OTHER, SELFPAY ==
--- NOTE | 2022-03-02 13:46 | CA_ITS ---
Transthoracic Echocardiogram Patient (Last, First, Middle): Yuli Duke, Gender: Female Date of : 1965 Age: 56 Procedure Date: 03/02/2022 Procedure Type: Transthoracic Echocardiogram Location: OP Height: 142.24 cm Weight: 54.43 kg BSA: 1.43 m2 Heart Rate: bpm BP: 110 / 78 mmHg Layboy Operator: SB Referring MD: Srikanth Palomares [facility] Symptoms: I51.7 - Cardiomegaly Study Quality: Adequate ECG Rhythm: Sinus Conclusions: - The left ventricular systolic function is normal. The calculated ejection fraction is 61% by biplane method. - No obvious valvular pathology seen on this study. Findings Left Ventricle Normal left ventricular cavity size. There is normal left ventricular wall thickness. The left ventricular systolic function is normal. The calculated ejection fraction is 61% by biplane method. There is no evidence of regional wall motion abnormalities. Diastolic function is normal for age. Right Ventricle Normal right ventricular cavity size and systolic function. Atria Both atria are normal in size. Aortic Valve There is a normal trileaflet aortic valve. There is no aortic valve stenosis. There is no aortic valve regurgitation. Mitral Valve There is mild anterior mitral leaflet thickening. There is trace mitral valve regurgitation. There is no mitral valve stenosis. Pulmonic Valve The pulmonic valve is likely normal. Tricuspid Valve Normal tricuspid valve structure. There is trace tricuspid valve regurgitation. There is no evidence of pulmonary hypertension. Great Vessels The asc aorta is normal in size. Venous The inferior vena cava is normal in size and collapses greater than 50% with inspiration. Pericardium/Pleural There is no evidence of pericardial effusion. Prior Study Comparison No significant change compared to prior study dated: 09/24/2016. Recommendations, Care & Conclusions No obvious valvular pathology seen on this study. Measurements 2D Linear Measurements IVSd: 0.84 0.6-0.9/0.6-1.0 cm LVIDd: 4.04 3.9-5.3/4.2-5.9 cm LVIDd Index: 2.83 2.4-3.2/2.2-3.1 cm/m2 LVIDs: 2.49 2.0-3.6 cm LVPWd: 0.73 0.7-1.1 cm LA Diam: 3.30 2.7-3.8/3.0-4.0 cm LAIDs Index: 2.31 1.5-2.3 cm/m2 LV Mass: 115.54 67-162/88-224 g LV Mass Index: 80.79 43-95/49-115 g/m2 LVOT Diam: 1.90 3.0+(-)1.3 cm 2D Systolic Function EF 4C: 57.30 >55% EF 2C: 60.20 >55% EF BiP: 60.50 >55% Mitral Valve MV Pk E: 1.00 MV PK A: 0.84 MV Decel Time: 158.00 E/A: 1.20 E'Lateral: 6.74 E'Medial: 7.94 E/E' Med: 12.60 E/E' Lat: 14.80 PHT: 46.00 MVA PHT: 4.78 Decel Guthrie: 6.36 Aortic Valve AoV Pk Joselo: 1.22 AoV Mn Joselo: 0.81 AoV VTI: 0.24 AoV Pk Grad: 6.00 Aov Mn Grad: 3.00 MILAGROS Cont.VTI: 2.55 LVOT LVOT Pk Joselo: 1.01 LVOT Mn Joselo: 0.72 LVOT VTI: 0.22 LVOT Pk Grad: 4.00 LVOT Mn Grad: 2.00 LVOT Diam: 1.90 LVOT Area: 2.84 Diastolic Function MV Pk E: 1.00 MV Pk A: 0.84 E/A: 1.20 E'Medial: 7.94 E/E' Med: 12.60 E' Laterial: 6.74 E/E' Lat: 14.80 Right Ventricle TAPSE (mm): 18.10 TVS' Joselo: 8.50 Tricuspid Valve RA Press: 3.00 Great Vessels Aorta Sinus of Valsalva: 2.70 2.0-3.[address] Ridge: 2.32 1.7-3.4 cm Ao Asc: 2.70 2.1-3.4 cm Pulmonary Veins Pulm Vein S/D 1.20 Pulmonary Valve PV Pk Joselo: 0.73 Peak PV Grad: 2.00 Updated in Other Vendor System with Status of Final Cedric Alston MD electronically signed on 03/02/2022 5:13:03 PM with status of Final
== END ==
LOC: HO.CARD 13:41
PROVIDERS: PCP Nurse Practitioner Family; Visit Provider Nurse Practitioner Family
DX: I51.7 Cardiomegaly (principal)
CPT/HCPCS: 93306

== ENCOUNTER 2022-04-23 08:01 | Outpatient (REF) | payer MEDICARE, SELFPAY ==
--- NOTE | ~2022-04-23 | MM_ITS ---
EXAMINATION: MM SCREENING DIGITAL BREAST TOMOSYNTHESIS, BILATERAL CLINICAL INFORMATION: Screening. Asymptomatic. Family history breast cancer, mother. The lifetime risk of breast cancer based on the Tyrer-Cuzick Model is 22%. COMPARISON: Mammography: 07/13/2019, 07/06/2018, 06/23/2017 TECHNIQUE: Digital breast tomosynthesis is performed in both the craniocaudal and mediolateral oblique views along with computer-aided detection (CAD). Synthesized 2D images are generated from the tomosynthesis. FINDINGS: There are scattered areas of fibroglandular density (ACR BI-RADS breast composition Category b). There are no significant masses, abnormal calcifications, or other abnormalities. Parenchymal pattern is similar to prior studies. No developing density or architectural abnormality. Incidental small left axillary tail node stable. MM/MM tomosynthesis screening BI IMPRESSION: No mammographic evidence of malignancy. ASSESSMENT: BI-RADS 1: Negative RECOMMENDATION: Routine annual mammography screening. This patient's information was entered into a reminder system with a target due date for their next mammogram.
== END 2022-04-23 08:02 | disposition home or self-care (01) ==
LOC: HO.MAMMO 08:01
PROVIDERS: Visit Provider Nurse Practitioner Family
DX: Z12.31 Encounter for screening mammogram for malignant neoplasm of breast (principal)
CPT/HCPCS: 77063; 77067

== ENCOUNTER 2022-04-23 13:23 | Outpatient (REF) | payer MEDICARE, SELFPAY ==
--- NOTE | ~2022-04-23 | XR_ITS ---
EXAMINATION: XR HIPS, BILATERAL. XR KNEE, BILATERAL. CLINICAL INFORMATION: Right hip pain. Right knee pain. COMPARISON: Bilateral knees 10/18/2019 TECHNIQUE: AP and frog-lateral views of each hip. AP standing view both knees with lateral views of each knee. FINDINGS: Minimal bilateral hip osteoarthritis with small marginal osteophytes along the superior acetabular rim. Normal alignment with no fracture. No suspicious bone lesion or soft tissue calcification. Minimal medial compartment narrowing of both knees and minimal osteophyte formation of the patella bilaterally. No acute abnormality. No joint effusion. XR/XR knee standing BI IMPRESSION: Minimal bilateral hip osteoarthritis. Minimal bilateral patellofemoral compartment and right medial compartment osteoarthritis. No joint effusions. No significant change.
--- NOTE | ~2022-04-23 | XR_ITS ---
EXAMINATION: XR HIPS, BILATERAL. XR KNEE, BILATERAL. CLINICAL INFORMATION: Right hip pain. Right knee pain. COMPARISON: Bilateral knees 10/18/2019 TECHNIQUE: AP and frog-lateral views of each hip. AP standing view both knees with lateral views of each knee. FINDINGS: Minimal bilateral hip osteoarthritis with small marginal osteophytes along the superior acetabular rim. Normal alignment with no fracture. No suspicious bone lesion or soft tissue calcification. Minimal medial compartment narrowing of both knees and minimal osteophyte formation of the patella bilaterally. No acute abnormality. No joint effusion. XR/XR hips YUE min 3V IMPRESSION: Minimal bilateral hip osteoarthritis. Minimal bilateral patellofemoral compartment and right medial compartment osteoarthritis. No joint effusions. No significant change.
[2022-04-23 16:24] LABS: Urine Cytology See Pathology rpt
[2022-04-23 16:27] LABS: Appearance Urine CLEAR; Color Urine YELLOW; Glucose Urine UA NEG (NEG); Leukocyte Esterase Urine NEG (NEG); Nitrite Urine NEG (NEG); PH 6.5 (5.0-8.0); Specific Gravity - Urine 1.015 (1.005-1.025); Urine Blood NEG (NEG); Urine Ketones 5 MG/DL (NEG); Urine Protein NEG (NEG-TRACE)
[2022-04-23 16:35] LABS: RBC Urine 0 /HPF (0); Squamous Epithelial Cell Urine 2+ /LPF; WBC Urine 0 /HPF (0-4)
[2022-04-23 16:41] LABS: Alanine Aminotransferase 14 U/L (0-31); Albumin Level 3.9 g/dL (3.5-5.0); Alkaline Phosphatase 104 U/L (39-117); Anion Gap 14 (12-20); Aspartate Amino Transferase 18 U/L (5-31); Bilirubin Total 0.4 mg/dL (0.0-1.0); Blood Urea Nitrogen 11 mg/dL (9-16); Calcium 8.6 mg/dL (8.4-10.2); Carbon Dioxide 28 mmol/L (22-29); Chloride 104 mmol/L (96-108); Estimated Glomerular Filt Rate > 60; Glucose Random 106 mg/dL (60-115); Potassium 4.8 mmol/L (3.3-5.1); Sodium 141 mmol/L (135-145); Total Protein 6.3 g/dL (6.5-8.0)
== END 2022-04-23 13:24 | disposition home or self-care (01) ==
LOC: HO.HMGCX 13:23
PROVIDERS: PCP Nurse Practitioner Family; Visit Provider Nurse Practitioner Family
DX: Z12.31 Encounter for screening mammogram for malignant neoplasm of breast (principal); M25.561 Pain in right knee; M25.562 Pain in left knee; M25.552 Pain in left hip; M25.551 Pain in right hip; R60.9 Edema, unspecified; E03.9 Hypothyroidism, unspecified; R31.29 Other microscopic hematuria
CPT/HCPCS: 36415; 73522; 73565; 77063; 77067; 80053; 81001; 81003; 87086; 88112

== ENCOUNTER → 2022-05-25 12:39 | Outpatient (BNVA) | payer MEDICARE, SELFPAY | PROVIDERS: PCP Nurse Practitioner Family; Visit Provider Nurse Practitioner | DX: K30 Functional dyspepsia (principal); K21.00 Gastro-esophageal reflux disease with esophagitis, without bleeding; K22.4 Dyskinesia of esophagus | CPT/HCPCS: 99212 ==

== ENCOUNTER → 2022-07-09 12:32 | Outpatient (BNVA) | payer MEDICARE, SELFPAY | PROVIDERS: PCP Nurse Practitioner Family; Visit Provider Nurse Practitioner | DX: R13.10 Dysphagia, unspecified (principal); K22.2 Esophageal obstruction; K22.4 Dyskinesia of esophagus; K30 Functional dyspepsia; K21.00 Gastro-esophageal reflux disease with esophagitis, without bleeding; Z79.899 Other long term (current) drug therapy | CPT/HCPCS: 99212 ==

== ENCOUNTER 2022-07-16 12:02 | Day surgery (SDC) | payer MEDICARE, SELFPAY ==
--- NOTE | 2022-07-15 13:20 | P.CONAN_ITS ---
Documented by User: Sue Vasquez NP 07/15/22 13:21 HPI - Anesthesia Eval Consult details Narrative: 57yo F for Upper Endoscopy s/p paraesoph hernia repair and belgica fund 11/2020 s/p EGD with dilation 05/2021 with MAC PMF Active Problems Active Problems: All Active Problems (Updated 03/30/22 @ 07:32 by Srikanth Palomares, [facility]) Edema (Acute) Bilateral knee pain (Acute) Bilateral hip pain (Acute) Delayed gastric emptying (Acute) Cardiomegaly (Acute) Microscopic hematuria (Acute) Pleuritic pain (Acute) Hypothyroid (Acute) GERD with esophagitis (Acute) Esophageal spasm (Acute) Dysphagia (Acute) Epigastric pain (Acute) Esophageal stricture (Acute) Multiple pulmonary nodules (Acute) Past Medical History Medical History CAD (coronary artery disease) Cerebral atrophy Cerebral microvascular disease COPD (chronic obstructive pulmonary disease) Depression Hx of hiatal hernia Hyperlipidemia Hypertension Hypothyroid Intracranial arachnoid cyst Lumbar radiculitis Lumbar stenosis Lumbosacral pain Multiple pulmonary nodules Myocardial infarct Nicotine dependence, unspecified, uncomplicated On beta matty at home Osteoporosis Seizure Tremor Tubular adenoma of colon Family History Family History Father Blood clots in brain Diabetes Polio Mother Breast cancer Hiatal hernia Sister Cancer Brother Myocardial infarction Family/Other Throat cancer Stomach cancer Family history of problems with anesthesia: No Surgical History Surgical History History of appendectomy History of colonoscopy (~2018) History of esophagogastroduodenoscopy (EGD) (~2020) History of foot surgery (~2013) History of heart artery stent (~2004) History of [place] fundoplication (~2019) History of tubal ligation S/P dilatation of esophageal stricture (~2020) History of Problems with Anesthesia: No Social History Social History Household Members: Other Housing: Apartment Alcohol intake: current Alcohol intake frequency: does not drink Patient Tobacco Use Status: Current everyday Tobacco user Tobacco use type: Cigarette Cigarettes Per Day: 2 Years Smoked: 42 e-Cigarette/Vaping Use: Never Used Use of substances other than those prescribed or required for medical reasons: No Advance Directives: No Advance Directives Information Provided: Yes Current occupational status: disabled Cognitive needs: No Hearing needs: No Vision needs: No Meds Allergies Allergy/AdvReac Type Severity Reaction Status Date / Time latex [LATEX] Allergy Intermediate RASH Verified 07/09/22 12:54 morphine [MORPHINE] Allergy Intermediate SWELLING Verified 07/09/22 12:54 alendronate sodium Allergy Unknown PER H+P Verified 07/09/22 12:54 [From FOSAMAX] levetiracetam [From KEPPRA] AdvReac Intermediate DICKENS Verified 07/09/22 12:54 phenytoin [From DILANTIN] AdvReac Intermediate CANT Verified 07/09/22 12:54 FUNCTION Home Medications Medication Instructions Recorded Confirmed Last Taken Type clonazepam 0.5 mg tablet 0.5 mg PO DAILY PRN Anxiety 09/12/20 03/30/22 06/04/21 History mirtazapine 45 mg tablet 45 mg PO BEDTIME 09/12/20 03/30/22 06/04/21 History quetiapine 300 mg tablet,extended 300 mg PO BEDTIME 09/12/20 03/30/22 06/04/21 History release 24 hr zolpidem 5 mg tablet 5 mg PO BEDTIME 09/12/20 03/30/22 06/04/21 History divalproex 500 mg tablet,extended 500 mg PO BID 04/28/21 03/30/22 07/16/22 History release 24 hr sertraline 100 mg tablet 200 mg PO QAM 04/28/21 03/30/22 06/04/21 History memantine 5 mg tablet mg PO BID 05/25/22 Unknown History Exam Exam Date and Time: July 15, 2022 1320 Pertinent Lab Results Pertinent Lab Results: Laboratory Tests 12/03/21 04/23/22 11:50 14:03 WBC 4.6 L Hgb 14.3 Hct 42.8 Plt Count 244 Sodium 141 Potassium 4.8 Chloride 104 Carbon Dioxide 28 BUN 11 D Creatinine 0.85 Narrative Narrative: ECHO 02/2022 Conclusions: - The left ventricular systolic function is normal.? The ? calculated ejection fraction is 61% by biplane method. ? - No obvious valvular pathology seen on this study.? ? Assessment and Plan Assessment Anesthesia Assessment: Chart Reviewed Final Anesthetic Review Family History of Problems with Anesthesia: No History of Problems with Anesthesia: No Documented by User: Lauren Phelps MD 07/16/22 13:59 PMF Past Medical History Medical History CAD (coronary artery disease) Cerebral atrophy Cerebral microvascular disease COPD (chronic obstructive pulmonary disease) Depression Hx of hiatal hernia Hyperlipidemia Hypertension Hypothyroid Intracranial arachnoid cyst Lumbar radiculitis Lumbar stenosis Lumbosacral pain Multiple pulmonary nodules Myocardial infarct Nicotine dependence, unspecified, uncomplicated On beta matty at home Osteoporosis Seizure Tremor Tubular adenoma of colon Family History Family History Father Blood clots in brain Diabetes Polio Mother Breast cancer Hiatal hernia Sister Cancer Brother Myocardial infarction Family/Other Throat cancer Stomach cancer Surgical History Surgical History History of appendectomy History of colonoscopy (~2018) History of esophagogastroduodenoscopy (EGD) (~2020) History of foot surgery (~2013) History of heart artery stent (~2004) History of [place] fundoplication (~2019) History of tubal ligation S/P dilatation of esophageal stricture (~2020) Social History Social History Household Members: Other Housing: Apartment Alcohol intake: current Alcohol intake frequency: does not drink Patient Tobacco Use Status: Current everyday Tobacco user Tobacco use type: Cigarette Cigarettes Per Day: 2 Years Smoked: 42 e-Cigarette/Vaping Use: Never Used Use of substances other than those prescribed or required for medical reasons: No Advance Directives: No Advance Directives Information Provided: Yes Current occupational status: disabled Cognitive needs: No Hearing needs: No Vision needs: No Meds Allergies Allergy/AdvReac Type Severity Reaction Status Date / Time latex [LATEX] Allergy Intermediate RASH Verified 07/09/22 12:54 morphine [MORPHINE] Allergy Intermediate SWELLING Verified 07/09/22 12:54 alendronate sodium Allergy Unknown PER H+P Verified 07/09/22 12:54 [From FOSAMAX] levetiracetam [From KEPPRA] AdvReac Intermediate DICKENS Verified 07/09/22 12:54 phenytoin [From DILANTIN] AdvReac Intermediate CANT Verified 07/09/22 12:54 FUNCTION Home Medications Medication Instructions Recorded Confirmed Last Taken Type clonazepam 0.5 mg tablet 0.5 mg PO DAILY PRN Anxiety 09/12/20 03/30/22 06/04/21 History mirtazapine 45 mg tablet 45 mg PO BEDTIME 09/12/20 03/30/22 06/04/21 History quetiapine 300 mg tablet,extended 300 mg PO BEDTIME 09/12/20 03/30/22 06/04/21 History release 24 hr zolpidem 5 mg tablet 5 mg PO BEDTIME 09/12/20 03/30/22 06/04/21 History divalproex 500 mg tablet,extended 500 mg PO BID 04/28/21 03/30/22 07/16/22 History release 24 hr sertraline 100 mg tablet 200 mg PO QAM 04/28/21 03/30/22 06/04/21 History memantine 5 mg tablet mg PO BID 05/25/22 Unknown History Exam Airway Mallampati Class: II (Edentulous) TM Dist: >3cm Neck ROM: Full Heart: rrr Lungs: cta Assessment and Plan Assessment Anesthesia Assessment: Anesthesia Plan Discussed Final Anesthetic Review NPO: Yes ASA Class: III Final Preanesthetic Review: No Changes in Pt Med Stat, Meds/Allgs Chart Reviewed and Consent Obtained/Reviewed Patient Risk: Intermediate Procedure Risk: Intermediate Anesthetic Plan Anesthetic Plan: MAC: Disposition: Standard PACU
[2022-07-16 13:07] VITALS: BP 104/70; PULSE 64; RESP 16; TEMP 36.8; O2SAT 95
[2022-07-16] MEDS: Lactated Ringers 1,000 ML 100 ML IVCONT (13:32)
--- NOTE | 2022-07-16 13:49 | MHC.SHP ---
Pre-Procedural Eval Section A Date of Service: 07/16/22 The patient is an INPATIENT: No The History & Physical has been completed within 30 days and I have reviewed it.: No Section B Chief Complaint: Esophageal obstruction,Dyskinesia of esophagus,ref Details of Present Illness: GERD, dysphagia and odynophagia, Relevant Family History (Specify if Yes): Yes Relevant Social History: Tobacco Use Present Medications: see Short Stay Collaborative assessment Medical History: Significant History (CAD (coronary artery disease) Cerebral atrophy Cerebral microvascular disease COPD (chronic obstructive pulmonary disease) Depression Hx of hiatal hernia Hyperlipidemia Hypertension Hypothyroid) History of Previous Operations: Relevant previous surgery/procedure and date(s) (History of appendectomy History of colonoscopy (~2018) History of esophagogastroduodenoscopy (EGD) (~2020) History of foot surgery (~2013) History of heart artery stent (~2004) History of [place] fundoplication (~2019) History of tubal ligation S/P dilatation of esophageal stricture (~2020)) Allergies: Allergies Allergy/AdvReac Type Severity Reaction Status Date / Time latex [LATEX] Allergy Intermediate RASH Verified 07/09/22 12:54 morphine [MORPHINE] Allergy Intermediate SWELLING Verified 07/09/22 12:54 alendronate sodium Allergy Unknown PER H+P Verified 07/09/22 12:54 [From FOSAMAX] levetiracetam [From KEPPRA] AdvReac Intermediate DICKENS Verified 07/09/22 12:54 phenytoin [From DILANTIN] AdvReac Intermediate CANT Verified 07/09/22 12:54 FUNCTION Review of Systems Sugical H&P ROS: Negative: Constitution, Cardiovascular and Respiratory and Yes, Specify: Gastrointestinal (dysphagia, odynophagia) Exam Surgical H&P Exam: Normal: Heart, Normal: Lungs, Normal: Extremities and Normal: Abdomen Plan Diagnosis/Plan: Unchanged I have reviewed the history and physical and performed a pertinent physical examination on my patient. No changes have occurred unless specified.
--- NOTE | 2022-07-16 13:59 | W.PM.OPN ---
Operative Note Operative Note Date of Service: 07/16/22 Narrative: Pre-op diagnosis: GERD, dysphagia Post-op diagnosis:?other (GERD, dysphagia, gastritis) Procedure: FLEXIBLE TRANSORAL UPPER GASTROINTESTINAL ENDOSCOPY WITH BIOPSIES AND ESOPHAGEAL BALLOON DILATION Consent:?Indications for the procedure and potential complications of bleeding, perforation, reaction to medications and missed diagnosis were discussed with the patient and informed consent was obtained. Instrument:?Olympus GIF H 190 mid size upper endoscope Monitoring: Vital signs and clinical assessment, continuous EKG monitoring, Pulse oximetry, Carbon Dioxide monitoring and blood pressure monitoring were done throughout the procedure. Procedure:?The patient was placed in the left lateral decubitis position and pre-procedure medications were administered and a bite block was placed. The endoscope was inserted into the mouth and advanced under direct vision to the third part of duodenum. A careful inspection was made as the upper endoscope was withdrawn including a retroflexed examination of the proximal stomach; Findings and interventions are described below. Findings: Larynx:??Mild erythema of arytenoid cartilages Esophagus:?Tortuous esophagus with increased tertiary contractions without stricture or ring - biopsies were obtained from proximal esophagus to check for EOE.?? GE junction at 35 cms.?Some food/pill residue noted at GE junction which was flushed and revealed normal mucosa underneath.? Empiric balloon dilation was performed with 20 mm (60 F) CRE balloon x 60 seconds. Stomach:?Moderate gastric erythema. Biopsies were obtained. Grade 2 flap valve on retroflexed examination of the cardia. Duodenum:?Normal bulb and descending duodenum. Biopsies were obtained from 3rd part of the duodenum to check for celiac sprue Intervention: Biopsies and esophageal balloon dilation as noted above Impression and Post Procedure Diagnosis: Endoscopy Findings: LARYNX:? Changes suggestive of LPRD ESOPHAGUS: Tortuous esophagus with increased tertiary contractions without stricture or ring - biopsies were obtained from proximal esophagus to check for EOE.?? GE junction at 35 cms.?Some food residue noted at GE junction which was flushed and revealed normal mucosa underneath.? Empiric balloon dilation was performed with 20 mm (60 F) CRE balloon x 60 seconds. STOMACH: Gastritis DUODENUM: Normal - biopsied to check for celiac sprue Plan: Await pathology results Patient has an appointment on 08/03/22 in the GI Clinic with? Gisella Sparks NP. Above findings were reviewed with the patient and GERD and Esophageal spasm handouts were given in the discharge area Surgeon: Je Wolff MD Anesthesia:?MAC (Dr Bella) Was an Armored Machine Operator used for this Procedure?:?Yes Armored Machine Operator:?Ravin Molina Estimated blood loss (mL):?0 Pathology:?other (A- SMALL BOWEL BXS? R/O SPRU? B- GASTRIC ANTRUM BXS? R/ H.PYLORI? C- PROXIMAL ESIOHAGUS BXS? R/O EOE) Condition:?stable Disposition:?PACU
[2022-07-16 14:25] VITALS: BP 111/70; PULSE 75; RESP 16; TEMP 36.4; O2SAT 98
[2022-07-16 14:40] VITALS: BP 111/79; PULSE 76; RESP 16; TEMP 36.1; O2SAT 92
[2022-07-16 14:55] VITALS: BP 120/78; PULSE 69; RESP 16; TEMP 36.3; O2SAT 94
== END 2022-07-16 15:33 | disposition home or self-care (01) ==
PROVIDERS: PCP Nurse Practitioner Family; Visit Provider Internal Medicine Gastroenterology
PROC: 0DJ08ZZ Inspection of Upper Intestinal Tract, Via Natural or Artificial Opening Endoscopic (ICD-10-PCS; CPT 43235; principal; 2022-07-16 13:30)
DX: K22.2 Esophageal obstruction (principal); R13.10 Dysphagia, unspecified; K29.70 Gastritis, unspecified, without bleeding; K21.00 Gastro-esophageal reflux disease with esophagitis, without bleeding; K22.4 Dyskinesia of esophagus; K30 Functional dyspepsia; I10 Essential (primary) hypertension; J44.9 Chronic obstructive pulmonary disease, unspecified; E78.5 Hyperlipidemia, unspecified; R56.9 Unspecified convulsions; R25.1 Tremor, unspecified; F32.A Depression, unspecified; I25.10 Atherosclerotic heart disease of native coronary artery without angina pectoris; I25.2 Old myocardial infarction; Z98.61 Coronary angioplasty status; M81.0 Age-related osteoporosis without current pathological fracture; G31.9 Degenerative disease of nervous system, unspecified; Z88.1 Allergy status to other antibiotic agents; Z88.8 Allergy status to other drugs, medicaments and biological substances; Z91.040 Latex allergy status; Z79.899 Other long term (current) drug therapy; F17.210 Nicotine dependence, cigarettes, uncomplicated
CPT/HCPCS: 43249; 43239; 88305; 88342; C1726

== ENCOUNTER → 2022-12-14 09:32 | Outpatient (BNVA) | payer MEDICARE, MEDICAID, SELFPAY | PROVIDERS: PCP Nurse Practitioner Family; Visit Provider Surgery | DX: Z12.39 Encounter for other screening for malignant neoplasm of breast (principal) | CPT/HCPCS: 99212 ==

== ENCOUNTER → 2023-01-21 09:52 | Outpatient (BNVA) | payer MEDICARE, MEDICAID, SELFPAY | PROVIDERS: PCP Nurse Practitioner Family; Visit Provider Nurse Practitioner | DX: Z01.818 Encounter for other preprocedural examination (principal); K22.2 Esophageal obstruction; R13.10 Dysphagia, unspecified; K21.00 Gastro-esophageal reflux disease with esophagitis, without bleeding; K30 Functional dyspepsia; D12.6 Benign neoplasm of colon, unspecified; R56.9 Unspecified convulsions | CPT/HCPCS: 99212 ==

== ENCOUNTER 2023-02-04 13:42 | Day surgery (SDC) | payer MEDICARE, MEDICAID, SELFPAY ==
[2023-02-02 15:05] VITALS: BMI 26.2
--- NOTE | 2023-02-03 10:19 | HO.ANESPROP2 ---
HPI - Anesthesia Eval Consult details Narrative: 57yo F for Upper Endoscopy with Balloon Dilitation s/p EGD 07/2022 with MAC Follows cardiology prn only. Last seen 5 years ago. No CP/SOB PMFSH Active Problems Active Problems: All Active Problems (Updated 01/27/23 @ 08:50 by LILLIAN Lofton) Pre-op examination (Acute) Tubular adenoma of colon (Acute) Seizure (Acute) Breast cancer screening, high risk patient (Acute) Edema (Acute) Bilateral knee pain (Acute) Bilateral hip pain (Acute) Delayed gastric emptying (Acute) Cardiomegaly (Acute) Microscopic hematuria (Acute) Pleuritic pain (Acute) Hypothyroid (Acute) GERD with esophagitis (Acute) Esophageal spasm (Acute) Dysphagia (Acute) Epigastric pain (Acute) Esophageal stricture (Acute) Multiple pulmonary nodules (Acute) Past Medical History Medical History (Updated 02/04/23 @ 14:10 by Barb Brizuela, RUDI) CAD (coronary artery disease) Cerebral atrophy Cerebral microvascular disease COPD (chronic obstructive pulmonary disease) Depression Hx of hiatal hernia Hyperlipidemia Hypertension Hypoglycemia Hypothyroid Intracranial arachnoid cyst Lumbar radiculitis Lumbar stenosis Lumbosacral pain Multiple pulmonary nodules Myocardial infarct Nicotine dependence, unspecified, uncomplicated On beta matty at home Osteoporosis Seizure Tremor Tubular adenoma of colon Family History Family History Father Blood clots in brain Diabetes Polio Mother Breast cancer Hiatal hernia Sister Cancer Brother Myocardial infarction Family/Other Throat cancer Stomach cancer Family history of problems with anesthesia: No Surgical History Surgical History History of appendectomy History of colonoscopy (~2018) History of esophagogastroduodenoscopy (EGD) (~2020) History of foot surgery (~2013) History of heart artery stent (~2004) History of [place] fundoplication (~2019) History of tubal ligation Hx of local excision of skin lesion S/P dilatation of esophageal stricture (~2020) History of Problems with Anesthesia: No Social History Social History Household Members: Other Housing: Apartment Alcohol intake: current Alcohol intake frequency: does not drink Patient Tobacco Use Status: Current everyday Tobacco user Tobacco use type: Cigarette Cigarettes Per Day: 7 Years Smoked: 42 e-Cigarette/Vaping Use: Never Used Use of substances other than those prescribed or required for medical reasons: No Are you DNR?: No Advance Directives: No Advance Directives Information Provided: Yes Current occupational status: disabled Cognitive needs: No Hearing needs: No Vision needs: No Meds Allergies Allergy/AdvReac Type Severity Reaction Status Date / Time latex [LATEX] Allergy Intermediate RASH Verified 01/21/23 10:11 morphine [MORPHINE] Allergy Intermediate SWELLING Verified 01/21/23 10:11 alendronate sodium Allergy Unknown PER H+P Verified 01/21/23 10:11 [From FOSAMAX] levetiracetam [From KEPPRA] AdvReac Intermediate DICKENS Verified 01/21/23 10:11 phenytoin [From DILANTIN] AdvReac Intermediate CANT Verified 01/21/23 10:11 FUNCTION Home Medications Medication Instructions Recorded Confirmed Last Taken Type clonazepam 0.5 mg tablet 0.5 mg PO DAILY PRN Anxiety 09/12/20 12/14/22 06/04/21 History mirtazapine 45 mg tablet 45 mg PO BEDTIME 09/12/20 12/14/22 06/04/21 History quetiapine 300 mg tablet,extended 300 mg PO BEDTIME 09/12/20 12/14/22 06/04/21 History release 24 hr sertraline 100 mg tablet 200 mg PO QAM 04/28/21 12/14/22 06/04/21 History zolpidem 10 mg tablet mg PO BEDTIME 01/21/23 Unknown History divalproex 500 mg tablet,extended 1,000 mg PO BEDTIME 02/03/23 Unknown History release 24 hr Exam Exam Date and Time: February 03, 2023 1019 Height,Weight and Vital Signs: Height 4 ft 8.5 in Weight 54 kg Narrative Narrative: ECHO 02/2022 Conclusions: - The left ventricular systolic function is normal.? The ? calculated ejection fraction is 61% by biplane method. ? - No obvious valvular pathology seen on this study.? ? Assessment and Plan Assessment Anesthesia Assessment: Chart Reviewed Final Anesthetic Review Family History of Problems with Anesthesia: No History of Problems with Anesthesia: No
[2023-02-04 14:39] VITALS: BP 136/80; PULSE 77; RESP 18; TEMP 36.9; O2SAT 96
[2023-02-04] MEDS: Lactated Ringers 1,000 ML 100 ML IVCONT (14:41)
--- NOTE | 2023-02-04 16:37 | MHC.SHP ---
Pre-Procedural Eval Section A Date of Service: 02/04/23 The patient is an INPATIENT: No Changes since office visit: Yes Patient answered all questions; No Cold of Flu in the past 2 weeks, No New Medical Problems and No Changes in Medication The History & Physical has been completed within 30 days and I have reviewed it.: Yes Section B Chief Complaint: Esophageal obstruction,Functional dyspepsia,GERD Allergies: Allergies Allergy/AdvReac Type Severity Reaction Status Date / Time latex [LATEX] Allergy Intermediate RASH Verified 01/21/23 10:11 morphine [MORPHINE] Allergy Intermediate SWELLING Verified 01/21/23 10:11 alendronate sodium Allergy Unknown PER H+P Verified 01/21/23 10:11 [From FOSAMAX] levetiracetam [From KEPPRA] AdvReac Intermediate DICKENS Verified 01/21/23 10:11 phenytoin [From DILANTIN] AdvReac Intermediate CANT Verified 01/21/23 10:11 FUNCTION Plan I have reviewed the history and physical and performed a pertinent physical examination on my patient. No changes have occurred unless specified. Time Spent With Patient Time: Total time managing care of this patient today ____ minutes.
--- NOTE | 2023-02-04 16:38 | W.PM.OPN ---
Operative Note Operative Note Date of Service: 02/04/23 Narrative: FLEXIBLE TRANSORAL UPPER GASTROINTESTINAL ENDOSCOPY WITH BIOPSIES Pre-op diagnosis: Dysphagia and odynophagia, Bariums swallow showed esophageal spasm Post-op diagnosis: same Endoscopist:? Je Wolff MD Anesthesia:?MAC Consent: Indications for the procedure and potential complications of bleeding, perforation, reaction to medications and missed diagnosis were discussed with the patient and informed consent was obtained. Instrument: Olympus GIF H 190 mid size upper endoscope Monitoring: Vital signs and clinical assessment, continuous EKG monitoring, Pulse oximetry, Carbon Dioxide monitoring and blood pressure monitoring were done throughout the procedure. Procedure: The patient was placed in the left lateral decubitis position and pre-procedure medications were administered and a bite block was placed. The endoscope was inserted into the mouth and advanced under direct vision to the third part of duodenum. A careful inspection was made as the upper endoscope was withdrawn including a retroflexed examination of the proximal stomach; Findings and interventions are described below. Findings: Larynx: Mild erythema of arytenoid cartilages Esophagus:?Tortuous esophagus with increased tertiary contractions without stricture or ring - (biopsies obtained from proximal esophagus during past EGD were negative for EOE).?? GE junction at 35 cms.? Empiric balloon dilation was performed with 20 mm (60 F) CRE balloon x 60 seconds. Stomach:?Moderate gastric erythema. (Antral biopsies obtained during past EGD were negative for H Pylori). Grade 2 flap valve on retroflexed examination of the cardia. Duodenum:?Normal bulb and descending duodenum. Intervention: Esophageal balloon dilation as noted above Impression and Post Procedure Diagnosis: Endoscopy Findings: LARYNX: Changes suggestive of LPRD ESOPHAGUS: Tortuous esophagus with increased tertiary contractions without stricture or ring - (biopsies obtained from proximal esophagus during past EGD were negative for EOE).?? GE junction at 35 cms.? Empiric balloon dilation was performed with 20 mm (60 F) CRE balloon x 60 seconds. STOMACH: Gastritis Plan: Consider further evaluation with high resolution manometry. Repeated esophageal dilation not likely to be helpful. Pt advised to quit smoking (pt stated she is smokes 1 pack per week). Patient has an appointment on 07/22/23 in the GI Clinic with Gisella Sparks NP (advised to call the Gi clinic to schedule an earlier appointment). Above findings were reviewed with the patient.
[2023-02-04 17:02] VITALS: BP 119/69; PULSE 98; RESP 24; TEMP 36.4
[2023-02-04 17:16] VITALS: BP 133/79; PULSE 79; RESP 20; TEMP 37.1; O2SAT 98
== END 2023-02-04 17:32 | disposition home or self-care (01) ==
PROVIDERS: PCP Nurse Practitioner Family; Visit Provider Internal Medicine Gastroenterology
PROC: (CPT 43249; principal; 2023-02-04 15:40)
DX: K22.2 Esophageal obstruction (principal); K30 Functional dyspepsia; R13.10 Dysphagia, unspecified; K22.4 Dyskinesia of esophagus; K21.9 Gastro-esophageal reflux disease without esophagitis; K29.70 Gastritis, unspecified, without bleeding; R56.9 Unspecified convulsions; G47.33 Obstructive sleep apnea (adult) (pediatric); F17.210 Nicotine dependence, cigarettes, uncomplicated; Z88.8 Allergy status to other drugs, medicaments and biological substances; Z91.040 Latex allergy status
CPT/HCPCS: 43249; C1726

== ENCOUNTER 2023-05-18 13:06 | Outpatient (AMB) | payer MEDICARE, MEDICAID, SELFPAY ==
[2023-05-18 13:21] VITALS: BP 110/68; PULSE 82; O2SAT 98; BMI 27.2
--- NOTE | 2023-05-18 13:21 | A.OFFPC_ITS ---
Vital Signs 05/18/23 13:21 Height 4 ft 8.5 in Weight 123 lb 8 oz BMI 27.2 BP 110/68 Blood Pressure Location Rt brachial Position Sitting Pulse 82 Pulse Source Pulse Oximeter Pulse Oximetry (%) 98 Oxygen Delivery Method Room Air Intake Visit Reasons: 6M Follow up/Rescheduled from 02/22 Allergies latex [LATEX] Allergy (Intermediate, Verified 05/18/23 13:23) RASH morphine [MORPHINE] Allergy (Intermediate, Verified 05/18/23 13:23) SWELLING alendronate sodium [From FOSAMAX] Allergy (Unknown, Verified 05/18/23 13:23) PER H+P levetiracetam [From KEPPRA] Adverse Reaction (Intermediate, Verified 05/18/23 13:23) DICKENS phenytoin [From DILANTIN] Adverse Reaction (Intermediate, Verified 05/18/23 13:23) CANT FUNCTION Tobacco use date assessed: 05/18/23 Dental Screening Dental Screen Date: 05/18/23 Did you have a dental visit in the last 12 months?: No Did you have a dental problem in the last 6 months where you did not have access to dental care?: No Was dental information given to patient?: Patient declined HPI 6M Follow up/Rescheduled from 02/22 HPI Details pt reported RLE swelling x 1 month, pain to the top of my foot . Pt denies calf pain, redness, or warmth. #2 pt reports increased weakness to her BLE. Pt does see neuro, neuro exam was benign today. will inform her neurologist of her complaints. pt continues to smoke. Pt reported more frequent falls at home, without hitting her head or LOC. [facility] Medical History (Updated 05/18/23 @ 18:17 by PARVIN Morin-IQRA) CAD (coronary artery disease) Cerebral atrophy Cerebral microvascular disease COPD (chronic obstructive pulmonary disease) Depression Hx of hiatal hernia Hyperlipidemia Hypertension Hypoglycemia Hypothyroid Intracranial arachnoid cyst Lumbar radiculitis Lumbar stenosis Lumbosacral pain Multiple pulmonary nodules Myocardial infarct Nicotine dependence, unspecified, uncomplicated On beta matty at home Osteoporosis Seizure Tremor Tubular adenoma of colon Surgical History History of appendectomy History of colonoscopy (~2018) History of esophagogastroduodenoscopy (EGD) (~2020) History of foot surgery (~2013) History of heart artery stent (~2004) History of [place] fundoplication (~2019) History of tubal ligation Hx of local excision of skin lesion S/P dilatation of esophageal stricture (~2020) Family History Father Blood clots in brain Diabetes Polio Mother Breast cancer Hiatal hernia Sister Cancer Brother Myocardial infarction Family/Other Throat cancer Stomach cancer Social History Household Members: Other Housing: Apartment Alcohol intake: current Alcohol intake frequency: does not drink Patient Tobacco Use Status: Current everyday Tobacco user Tobacco use type: Cigarette Cigarette Packs Per Day: 1 Cigarettes Per Day: 20 Years Smoked: 42 e-Cigarette/Vaping Use: Never Used Current occupational status: disabled Cognitive needs: No Hearing needs: No Vision needs: No Questionnaire Thrive Questionnaire Date Thrive assessed: 11/09/21 DOMINGO-7 AMB Questionnaire DOMINGO-7 Date DOMINGO - 7 assessed: 11/09/21 Source: Developed by Drs. Alex Cerna, Clara Worthy, Kaushik Kilgore and colleagues, with an educational misti from [employer]. Physical exam (Primary Care) Vital Signs: Last Vital Signs Pulse 82 05/18/23 13:21 BP 110/68 05/18/23 13:21 Pulse Ox 98 05/18/23 13:21 Oxygen Delivery Method Room Air 05/18/23 13:21 BMI result Body Mass Index 27.2 Tobacco/Smoking Status: Tobacco use Status Tobacco use date assessed 05/18/23 05/18/23 13:27 Patient Tobacco Use Status Current everyday Tobacco 05/18/23 13:27 Tobacco use type Cigarette 05/18/23 13:27 e-Cigarette/Vaping Use Never Used 05/18/23 13:27 Thrive Assessment: Date of Thrive Assessment Date Thrive assessed 11/09/21 05/18/23 13:27 Const General: cooperative Orientation/consciousness: patient oriented x3 Resp Other: dim though moving air bilat Auscultation: clear to auscultation bilaterally Cardio Rate: regular rate Rhythm: regular rhythm Heart sounds: S1 normal heart sound present, S2 normal heart sound present and no murmurs Neuro Other: slight shuffling gait with ambulation, slightly weaker ROM noted to RLE compared to LLE (hip flexion against resistance) General: patient oriented x3 Cranial nerves: Yes CN's II-XII intact bilaterally Romberg Test: Negative Extrem Other: swelling noted to RLE. No pain with palpation, no erythema, no warmth noted. Assessment and Plan Assessment & Plan (1) Swelling of right lower extremity: Code(s): M79.89 - Other specified soft tissue disorders (2) Pain in right leg: Code(s): M79.604 - Pain in right leg (3) Weakness: Code(s): R53.1 - Weakness Plan: will inform pt's neurologist Orders: Orders US venous duplex LE RT Today M79.604 - Pain in right leg, M79.89 - Other specified soft tissue disorders Coding Level of Care Code Est Pt Level 3 (72127) Diagnoses Swelling of right lower extremity M79.89 Pain in right leg M79.604 Weakness R53.1
== END 2023-05-18 14:59 | disposition home or self-care (01) ==
PROVIDERS: PCP Nurse Practitioner Family; Visit Provider Nurse Practitioner Family
DX: M79.89 Other specified soft tissue disorders (principal); M79.604 Pain in right leg; R53.1 Weakness
CPT/HCPCS: 99213

== ENCOUNTER 2023-05-19 11:07 | Outpatient (REF) | payer MEDICARE, MEDICAID, SELFPAY ==
--- NOTE | ~2023-05-19 | US_ITS ---
EXAMINATION: US VENOUS ULTRASOUND WITH DOPPLER LOWER EXTREMITY, RIGHT CLINICAL INFORMATION: Right leg pain and swelling COMPARISON: Prior right lower extremity ultrasounds all negative dated 11/12/2019, 11/03/2019 and 03/09/2017 TECHNIQUE: Ultrasound of the deep veins is performed from the hip to the calf with compression sonography and color and pulse Doppler assessment. Spectral analysis with color-flow imaging is performed. FINDINGS: There is normal venous compression and respiratory variation and augmented flow. The visualized common femoral vein, superficial femoral vein, profunda femoral vein, popliteal vein, and the trifurcation region shows no evidence of deep venous thrombosis. There is no significant popliteal fossa cyst. If the patient's symptoms persist, followup ultrasound in 5 days 7 days might be of value to exclude proximal propagation from a non-visualized calf vein. US/US venous duplex LE RT IMPRESSION: No DVT demonstrated in the right lower extremity.
== END 2023-05-19 11:08 | disposition home or self-care (01) ==
LOC: HO.HMGCX 11:07
PROVIDERS: PCP Nurse Practitioner Family; Visit Provider Nurse Practitioner Family
DX: M79.604 Pain in right leg (principal); M79.89 Other specified soft tissue disorders
CPT/HCPCS: 93971

== ENCOUNTER 2023-07-04 12:36 | Outpatient (REF) | payer MEDICARE, MEDICAID, SELFPAY | END 2023-07-04 12:37 | disposition home or self-care (01) | LOC: HO.MAMMO 12:36 | PROVIDERS: PCP Nurse Practitioner Family; Visit Provider Surgery | DX: Z12.31 Encounter for screening mammogram for malignant neoplasm of breast (principal) | CPT/HCPCS: 77063; 77067 ==

== ENCOUNTER → 2023-07-04 12:38 | Outpatient (BNV) | payer MEDICARE, MEDICAID, SELFPAY | PROVIDERS: PCP Nurse Practitioner Family; Visit Provider Radiology Diagnostic Radiology | DX: Z12.31 Encounter for screening mammogram for malignant neoplasm of breast (principal) | CPT/HCPCS: 77063; 77067 ==

== ENCOUNTER 2023-08-04 10:02 | Outpatient (AMB) | payer MEDICARE, MEDICAID, SELFPAY ==
--- NOTE | 2023-08-04 10:04 | A.OFFVIS_ITS ---
Intake Vital Signs 08/04/23 10:21 Height 4 ft 8.5 in Weight 124 lb 4 oz BMI 27.4 BP 112/69 Blood Pressure Location Lt brachial Position Sitting Pulse 88 Intake Visit Reasons: 6 month follow up, breast exam Intake Note: Patient is seen in office for 6 month follow up visit, breast exam. Patient c/o: continued right breast soreness Purchasing Associate Required: No Accompanied by: Self / Same As Patient Allergies latex [LATEX] Allergy (Intermediate, Verified 08/04/23 10:05) RASH morphine [MORPHINE] Allergy (Intermediate, Verified 08/04/23 10:05) SWELLING alendronate sodium [From FOSAMAX] Allergy (Unknown, Verified 08/04/23 10:05) PER H+P levetiracetam [From KEPPRA] Adverse Reaction (Intermediate, Verified 08/04/23 10:05) DICKENS phenytoin [From DILANTIN] Adverse Reaction (Intermediate, Verified 08/04/23 10:05) CANT FUNCTION Medication List - Last Reconciled 08/04/23 by Srikanth Galeana MD aspirin 81 mg PO DAILY 90 days atorvastatin 80 mg PO DAILY 90 days clonazepam 0.5 mg PO DAILY PRN dicyclomine 20 mg PO QID 30 days divalproex ER mg PO lansoprazole 30 mg PO BID levothyroxine 88 mcg PO DAILY 90 days meclizine 12.5 mg PO TID PRN 20 days metoclopramide HCl 10 mg PO QID metoprolol succinate ER 12.5 mg (1/2 x 25 mg) PO DAILY 90 days mirtazapine 45 mg PO BEDTIME primidone mg PO TID quetiapine ER 300 mg PO BEDTIME sertraline 200 mg PO QAM zolpidem mg PO BEDTIME HPI HPI Comments History of Present Illness Details 58-year-old female patient, previous pat ient of Dr. Ramirez presenting for a follow-up breast examination. She was determined to be at high risk for breast cancer with the Tyrer-Cuzick remaining lifetime risk of breast cancer at 22%, above the 20% threshold placing her at high risk. She was previously followed with yearly mammogram and breast MRIs alternating every 6 months. Her most recent mammogram dated 07/04/2023 revealed no mammographic evidence of malignancy (BI-RADS 1). She has not undergone breast MRI for several years but is interested in restarting. This was ordered at her last visit however has not been scheduled. She denies any palpable breast lump, nipple discharge or other skin changes. She does note some tenderness in the right breast at the upper outer quadrant. She reports pain when her kitten landed on her chest at this site. She denies any redness discharge but occasionally notes crusting of the nipples. [facility] Medical History Hypoglycemia Tremor Cerebral microvascular disease Hx of hiatal hernia Tubular adenoma of colon On beta matty at home Nicotine dependence, unspecified, uncomplicated Lumbosacral pain Lumbar stenosis Lumbar radiculitis Multiple pulmonary nodules COPD (chronic obstructive pulmonary disease) Osteoporosis Hypothyroid Depression Hyperlipidemia Hypertension Myocardial infarct CAD (coronary artery disease) Intracranial arachnoid cyst Cerebral atrophy Seizure Surgical History Hx of local excision of skin lesion History of foot surgery (~2013) History of tubal ligation History of heart artery stent (~2004) History of colonoscopy (~2018) History of appendectomy S/P dilatation of esophageal stricture (~2020) History of [place] fundoplication (~2019) History of esophagogastroduodenoscopy (EGD) (~2020) Family History Father Blood clots in brain Diabetes Polio Mother Breast cancer Hiatal hernia Sister Cancer Brother Myocardial infarction Family/Other Throat cancer Stomach cancer Social History Household Members: Other Housing: Apartment Alcohol intake: current Alcohol intake frequency: does not drink Patient Tobacco Use Status: Current everyday Tobacco user Tobacco use type: Cigarette Cigarette Packs Per Day: 1 Cigarettes Per Day: 20 Years Smoked: 42 e-Cigarette/Vaping Use: Never Used Current occupational status: disabled Cognitive needs: No Hearing needs: No Vision needs: No Female Reproductive History Menstrual Date of Mammogram: 07/04/23 Review of Systems Const All systems reviewed & are unremarkable except as noted in HPI and below Denies nipple discharge Skin/Breast Denies breast skin changes, Reports breast pain, Denies breast mass and Denies nipple discharge Neuro Reports seizure-like activity Physical Exam Const General: cooperative and no acute distress Nutritional Appearance: well nourished Orientation/consciousness: patient oriented x3 Limitations: no limitations HEENT Head: Yes normocephalic and Yes atraumatic Ears: hearing grossly normal bilaterally Chest Other: Left breast: No skin change, no nipple retraction, no nipple discharge, no palpable mass, no enlarged lymph nodes. Right breast: No skin change, no nipple retraction, no nipple discharge, no palpable mass, no enlarged lymph nodes, small area of tenderness in the upper outer quadrant with no suspicious findings in this location. Resp Effort & Inspection: normal respiratory effort, no audible wheezes, no cough and no respiratory distress Cardio Jugular venous distension: no JVD GI Inspection: Yes normal to inspection Skin Other: Warm, dry, no rash Neuro General: patient oriented x3 Extrem General: Yes no clubbing, cyanosis or edema Assessment & Plan Assessment & Plan (1) Breast cancer screening, high risk patient: Code(s): Z12.39 - Encounter for other screening for malignant neoplasm of breast Plan 58-year-old female patient felt to be at high risk breast cancer with a calculated Tyrer-Cuzick remaining lifetime risk of breast cancer of 22%. Her latest mammogram of 07/04/2023 revealed no mammographic evidence of malignancy BI-RADS 1). She is due for a breast MRI which will be ordered today. I recommended a follow-up mammogram in April 2024. Examination today revealed no suspicious findings in either breast. I recommended she return approximately 6 months, sooner p.r.n.. She was encouraged to perform monthly self examinations as well. Coding Level of Care Code Est Pt Level 3 (60713) Diagnoses Breast cancer screening, high risk patient Z12.39
[2023-08-04 10:21] VITALS: BP 112/69; PULSE 88; BMI 27.4
== END 2023-08-04 10:35 | disposition home or self-care (01) ==
PROVIDERS: PCP Nurse Practitioner Family; Visit Provider Surgery
DX: Z80.3 Family history of malignant neoplasm of breast (principal); Z91.89 Other specified personal risk factors, not elsewhere classified
CPT/HCPCS: 99213

== ENCOUNTER → 2023-08-04 10:02 | Outpatient (BNVA) | payer MEDICARE, MEDICAID, SELFPAY | PROVIDERS: PCP Nurse Practitioner Family; Visit Provider Surgery | DX: Z12.39 Encounter for other screening for malignant neoplasm of breast (principal) | CPT/HCPCS: 99212 ==

== ENCOUNTER 2023-08-11 10:38 | Outpatient (AMB) | payer MEDICARE, MEDICAID, SELFPAY ==
--- NOTE | 2023-08-11 10:42 | MHC.OFFVIS ---
Intake Vital Signs 08/11/23 10:58 Height 4 ft 8.5 in Weight 123 lb 14.397 oz BMI 27.3 BP 122/85 Blood Pressure Location Lt brachial Position Sitting Pulse 66 Intake Visit Reasons: follow up s/p EGD Intake Note: Patient presents to in office visit today in post op follow up of EGD. CC: Patient underwent EGD on 02/[address] Wolff. She has her good days and bad days. She reports she feels epigastric pain and her stomach gets hard . She also reports diarrhea for about a month depending on what she eats. She states she has to make herself throw up because she feels the foods stays stuck in her epigastric area and that helps with pain a little . Cleaning Maid Required: No Accompanied by: Self / Same As Patient Allergies latex [LATEX] Allergy (Intermediate, Verified 08/11/23 11:07) RASH morphine [MORPHINE] Allergy (Intermediate, Verified 08/11/23 11:07) SWELLING alendronate sodium [From FOSAMAX] Allergy (Unknown, Verified 08/11/23 11:07) PER H+P levetiracetam [From KEPPRA] Adverse Reaction (Intermediate, Verified 08/11/23 11:07) DICKENS phenytoin [From DILANTIN] Adverse Reaction (Intermediate, Verified 08/11/23 11:07) CANT FUNCTION HPI follow up s/p EGD HPI Details Assessment & Plan (1) Esophageal stricture: ?Code(s): K22.2 - Esophageal obstruction ?Plan: She e tolerated the 2021 EGD procedure well. she had relief with her swallowing for about a month, then problems returned with food at GE jxn and pain.? I educated her that sometimes he needs serial dilations so it is not uncommon for us to have to go back in until till we get the esophagus to the point where it stays open.? She is agreeable to a repeat EGD. She is due for a colonoscopy as she had 2 large sessile polyps in 2019. She is agreeable to this as well. She continues on lansoprazole bid along with her dicyclomine for esophageal spasm. She is also taking the metaclopramide. .? We review safe swallowing precautions and I encouraged her to cut her food up small, eat slowly, chew thoroughly or even consider a soft diet to avoid choking. There are no prior problems with anesthesia or sedation.? She has a history of myocardial infarction but feels her cardiac situation is well controlled and she denies any respiratory problems.? There are no infectious disease problems. ROV after EGD (2) Dysphagia: ?Code(s): R13.10 - Dysphagia, unspecified (3) Esophageal spasm: ?Code(s): K22.4 - Dyskinesia of esophagus (4) GERD with esophagitis: ?Code(s): K21.00 - Gastro-esophageal reflux disease with esophagitis, without bleeding (5) Delayed gastric emptying: ?Code(s): K30 - Functional dyspepsia (6) Seizure: ?Comment: taking depakote BID ?Code(s): R56.9 - Unspecified convulsions (7) Tubular adenoma of colon: ?Comment: (TAs on 2014 & 2019 colonoscopies) ?Code(s): D12.6 - Benign neoplasm of colon, unspecified (8) Pre-op examination: ?Code(s): Z01.818 - Encounter for other preprocedural examination ? ? ? Medications: Refilled metoclopramide HCl (Reglan) ?? Provi ingrid aware of possi ble interaction an d pt is monitoredA 10 mg? PO QIDACHS 120 tabs 6RF K30 - Functional d yspepsia ? lansoprazole 30 mg? PO BID 180 caps 2RF K21.00 - Gastro-es ophageal reflux di sease with esophag itis, without blee ding ? EGD 02/04/23 Findings: Larynx:??Mild erythema of arytenoid cartilages Esophagus:?Tortuous esophagus with increased tertiary contractions without stricture or ring - biopsies were obtained from proximal esophagus to check for EOE.?? GE junction at 35 cms.?Some food/pill residue noted at GE junction which was flushed and revealed normal mucosa underneath.? Empiric balloon dilation was performed with 20 mm (60 F) CRE balloon x 60 seconds. Stomach:?Moderate gastric erythema. Biopsies were obtained. Grade 2 flap valve on retroflexed examination of the cardia. Duodenum:?Normal bulb and descending duodenum. Biopsies were obtained from 3rd part of the duodenum to check for celiac sprue Intervention: Biopsies and esophageal balloon dilation as noted above Impression and Post Procedure Diagnosis: Endoscopy Findings: LARYNX:? Changes suggestive of LPRD ESOPHAGUS: Tortuous esophagus with increased tertiary contractions without stricture or ring - biopsies were obtained from proximal esophagus to check for EOE.?? GE junction at 35 cms.?Some food residue noted at GE junction which was flushed and revealed normal mucosa underneath.? Empiric balloon dilation was performed with 20 mm (60 F) CRE balloon x 60 seconds. STOMACH: Gastritis DUODENUM: Normal - biopsied to check for celiac sprue Plan: Await pathology results Patient has an appointment on 08/03/22 in the GI Clinic with? Gisella Sparks NP. TODAY'S VISIT Her dysphagia was improved for a while up to the dilation but now her swallowing trouble has returned. I explained that sometimes we need to do serial dilations before it stays were needs to so I will schedule her for another ana EGD. She has a new problem of pain in the center epigastric area with eating. This is happening with almost every meal. The only thing that relieves the pain is vomiting. She will occasionally have good days and she does not really know why this has changed. She has the most trouble with meats and she is uncertain what would happen with fried foods. She also has a new problem of diarrhea/loose stools. I think we need to get a GI panel to test for possible infections since this is of sudden onset over the past 4 weeks. I will also get some basic lab work said she has not had any for over a year to see if anything seems to arranged. She does still have a gallbladder so this is another possibility although it does not seem that fatty foods or big problem for her. Also get a CRP and fecal calprotectin. No changes to her medications for now and I will see her in 4 weeks. She continues on her metoclopramide and her lansoprazole. COUNT INCLUDES THE [facility] Medical History Hypoglycemia Tremor Cerebral microvascular disease Hx of hiatal hernia Tubular adenoma of colon On beta matty at home Nicotine dependence, unspecified, uncomplicated Lumbosacral pain Lumbar stenosis Lumbar radiculitis Multiple pulmonary nodules COPD (chronic obstructive pulmonary disease) Osteoporosis Hypothyroid Depression Hyperlipidemia Hypertension Myocardial infarct CAD (coronary artery disease) Intracranial arachnoid cyst Cerebral atrophy Seizure Surgical History Hx of local excision of skin lesion History of foot surgery (~2013) History of tubal ligation History of heart artery stent (~2004) History of colonoscopy (~2018) History of appendectomy S/P dilatation of esophageal stricture (~2020) History of [place] fundoplication (~2019) History of esophagogastroduodenoscopy (EGD) (~2020) Family History Father Blood clots in brain Diabetes Polio Mother Breast cancer Hiatal hernia Sister Cancer Brother Myocardial infarction Family/Other Throat cancer Stomach cancer Social History Household Members: Other Housing: Apartment Alcohol intake: current Alcohol intake frequency: does not drink Patient Tobacco Use Status: Current everyday Tobacco user Tobacco use type: Cigarette Cigarette Packs Per Day: 1 Cigarettes Per Day: 20 Years Smoked: 42 e-Cigarette/Vaping Use: Never Used Current occupational status: disabled Cognitive needs: No Hearing needs: No Vision needs: No Review of Systems Const Denies fatigue, Denies fever(s), Denies night sweats, Denies poor appetite and Denies weight loss ENT Reports Normal hearing present, Reports dysphagia, Denies odynophagia, Denies throat swelling and Denies tongue swelling Card Reports no additional complaints Resp Reports no additional complaints GI Reports abdominal pain, Denies melena, Reports bloating, Denies hematochezia, Denies constipation, Denies GI cramping, Reports dysphagia, Denies excessive flatus, Denies early satiety, Reports heartburn, Reports diarrhea, Reports nausea, Denies odynophagia, Denies vomiting and Denies hematemesis Skin/Breast Denies pruritus, Denies lesions, Denies rash and Denies jaundice Neuro Reports Normal hearing present and Denies Abnormal speech present Endo Denies fatigue Aller/Immun Denies throat swelling and Denies tongue swelling Physical Exam Vital Signs: Last Vital Signs Pulse 66 08/11/23 10:58 BP 122/85 08/11/23 10:58 BMI result Body Mass Index 27.3 Const General: cooperative, no acute distress, well developed and well groomed Nutritional Appearance: average body habitus and well nourished Orientation/consciousness: oriented to person, oriented to place and oriented to time Limitations: No language barrier HEENT Head: Yes normocephalic and Yes atraumatic Eyes General: appearance normal, both eyes and all related structures Pupils: Equal, round and reactive pupils present Neck Neck: Yes normal visual inspection and Yes no lymphadenopathy Thyroid: Thyroid normal Resp Effort & Inspection: normal respiratory effort and able to speak in complete sentences Auscultation: clear to auscultation bilaterally Cardio Rate: regular rate Rhythm: regular rhythm Heart sounds: Normal, physiologic split S2 sound present Peripheral pulses: radial pulses present and posterior tibial pulses present GI Inspection: No distended and No Abdominal panniculus present Palpation (GI): Soft to palpation, Tenderness to palpation present (GI) in the epigastrum and periumbilically, no guarding, not rigid and No hepatosplenomegaly present Percussion: Yes normal to percussion Auscultation: normal bowel sounds Rectal Exam - Female: deferred Skin General skin exam: no rashes or lesions noted, turgor normal, skin not dry, no jaundice, No spider nevi and no striae Rashes: no rashes Nails: normal Neuro General: oriented to person, oriented to place and oriented to time Cranial nerves: Yes Equal, round and reactive pupils present and Yes Normal hearing present Speech: No Abnormal speech present Extrem General: Yes normal to inspection, No clubbing, No cyanosis and No edema Psych Appearance: grossly normal and well kempt Mental Status: mental status grossly normal Speech and movement: Normal speech and movement present Affect: normal affect Attitude: cooperative Thought process: Normal thought process present and not confabulating Thought content: Normal thought content present Insight: Limited insight present (Psych) Judgement: Limited judgement present (Psych) Assessment & Plan Assessment & Plan (1) Dysphagia: Code(s): R13.10 - Dysphagia, unspecified Plan: Her dysphagia was improved for a while up to the dilation but now her swallowing trouble has returned. I explained that sometimes we need to do serial dilations before it stays were needs to so I will schedule her for another ana EGD. She has a new problem of pain in the center epigastric area with eating. This is happening with almost every meal. The only thing that relieves the pain is vomiting. She will occasionally have good days and she does not really know why this has changed. She has the most trouble with meats and she is uncertain what would happen with fried foods. She also has a new problem of diarrhea/loose stools. I think we need to get a GI panel to test for possible infections since this is of sudden onset over the past 4 weeks. I will also get some basic lab work said she has not had any for over a year to see if anything seems to arranged. She does still have a gallbladder so this is another possibility although it does not seem that fatty foods or big problem for her. Also get a CRP and fecal calprotectin. No changes to her medications for now and I will see her in 4 weeks. She continues on her metoclopramide and her lansoprazole. (2) GERD with esophagitis: Code(s): K21.00 - Gastro-esophageal reflux disease with esophagitis, without bleeding (3) Esophageal spasm: Code(s): K22.4 - Dyskinesia of esophagus (4) Esophageal stricture: Code(s): K22.2 - Esophageal obstruction (5) Delayed gastric emptying: Code(s): K30 - Functional dyspepsia (6) Tubular adenoma of colon: Comment: (TAs on 2013 & 2018 colonoscopies) Code(s): D12.6 - Benign neoplasm of colon, unspecified (7) Diarrhea: Code(s): R19.7 - Diarrhea, unspecified (8) Abdominal pain: Code(s): R10.9 - Unspecified abdominal pain Orders: Orders CDiff Gene PCR Today R10.9 - Unspecified abdominal pain, R19.7 - Diarrhea, unspecified Pancreatic Elastase-1 Today R10.9 - Unspecified abdominal pain, R19.7 - Diarrhea, unspecified Transglutaminase IgA Today R10.9 - Unspecified abdominal pain, R19.7 - Diarrhea, unspecified Transglutaminase Ab IgG Today R10.9 - Unspecified abdominal pain, R19.7 - Diarrhea, unspecified C Reactive Protein Today R10.9 - Unspecified abdominal pain, R19.7 - Diarrhea, unspecified EGD with [facility] - GI Use Only Today K22.2 - Esophageal obstruction, R13.10 - Dysphagia, unspecified GI Panel Today R10.9 - Unspecified abdominal pain, R19.7 - Diarrhea, unspecified Calprotectin, Fecal Today R10.9 - Unspecified abdominal pain, R19.7 - Diarrhea, unspecified Complete Blood Count Auto Diff Today R10.9 - Unspecified abdominal pain, R19.7 - Diarrhea, unspecified Comprehensive Met. Panel Today R10.9 - Unspecified abdominal pain, R19.7 - Diarrhea, unspecified TSH reflex Free T4 Today R10.9 - Unspecified abdominal pain, R19.7 - Diarrhea, unspecified UA CC w/rflx Micro + Cult Today R10.9 - Unspecified abdominal pain, R19.7 - Diarrhea, unspecified Coding Level of Care Code Est Pt Level 4 (90106) Diagnoses Dysphagia R13.10 GERD with esophagitis K21.00 Esophageal spasm K22.4 Esophageal stricture K22.2 Delayed gastric emptying K30 Tubular adenoma of colon D12.6 Diarrhea R19.7 Abdominal pain R10.9
[2023-08-11 10:58] VITALS: BP 122/85; PULSE 66; BMI 27.3
== END 2023-08-11 11:38 | disposition home or self-care (01) ==
PROVIDERS: Visit Provider Nurse Practitioner
DX: R13.10 Dysphagia, unspecified (principal); K21.00 Gastro-esophageal reflux disease with esophagitis, without bleeding; K22.4 Dyskinesia of esophagus; K22.2 Esophageal obstruction; K30 Functional dyspepsia; D12.6 Benign neoplasm of colon, unspecified; R19.7 Diarrhea, unspecified; R10.9 Unspecified abdominal pain
CPT/HCPCS: 99214

== ENCOUNTER → 2023-08-11 10:38 | Outpatient (BNVA) | payer MEDICARE, MEDICAID, SELFPAY | PROVIDERS: Visit Provider Nurse Practitioner | DX: R13.10 Dysphagia, unspecified (principal); K21.00 Gastro-esophageal reflux disease with esophagitis, without bleeding; K22.4 Dyskinesia of esophagus; K22.2 Esophageal obstruction; K30 Functional dyspepsia; R19.7 Diarrhea, unspecified; R10.9 Unspecified abdominal pain; Z86.010 Personal history of colon polyps | CPT/HCPCS: 99212 ==

== ENCOUNTER 2023-08-17 14:06 | Outpatient (AMB) | payer MEDICARE, MEDICAID, SELFPAY ==
--- NOTE | 2023-08-17 14:07 | MHC.PC.OV ---
Vital Signs 08/17/23 14:10 Height 4 ft 8.5 in Weight 125 lb BMI 27.5 BP 110/70 Blood Pressure Location Rt brachial Position Sitting Pulse 71 Pulse Source Pulse Oximeter Pulse Oximetry (%) 95 Oxygen Delivery Method Room Air Intake Visit Reasons: Annual PE/ OVER DUE Allergies latex [LATEX] Allergy (Intermediate, Verified 08/17/23 14:10) RASH morphine [MORPHINE] Allergy (Intermediate, Verified 08/17/23 14:10) SWELLING alendronate sodium [From FOSAMAX] Allergy (Unknown, Verified 08/17/23 14:10) PER H+P levetiracetam [From KEPPRA] Adverse Reaction (Intermediate, Verified 08/17/23 14:10) DICKENS phenytoin [From DILANTIN] Adverse Reaction (Intermediate, Verified 08/17/23 14:10) CANT FUNCTION Tobacco use date assessed: 05/18/23 Dental Screening Dental Screen Date: 08/17/23 Did you have a dental visit in the last 12 months?: No Did you have a dental problem in the last 6 months where you did not have access to dental care?: No Was dental information given to patient?: No HPI Annual PE/ OVER DUE HPI Details Pt is here for a PE. Will order labs. Due for colon screen, pt is following up with GI. Mammo is up to date. 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 Pt is interested in smoking cessation. She has been on chantix in the past and would like this again. Will have pt's psychiatrist approve this before sending. Pt has been a PPD smoker since age 13. Will refer to thoracic for low-dose CT. Will also order bone density. Pt has a psychiatrist and therapist. Pt has chronic swelling of her RLE. DVT was ruled out previously. Will refer to vascular. Will also check BNP. [facility] Medical History (Updated 08/17/23 @ 14:54 by Srikanth Palomares, [facility]-) Hypoglycemia Tremor Cerebral microvascular disease Hx of hiatal hernia Tubular adenoma of colon On beta matty at home Nicotine dependence, unspecified, uncomplicated Lumbosacral pain Lumbar stenosis Lumbar radiculitis Multiple pulmonary nodules COPD (chronic obstructive pulmonary disease) Osteoporosis Hypothyroid Depression Hyperlipidemia Hypertension Myocardial infarct CAD (coronary artery disease) Intracranial arachnoid cyst Cerebral atrophy Seizure Surgical History Hx of local excision of skin lesion History of foot surgery (~2013) History of tubal ligation History of heart artery stent (~2004) History of colonoscopy (~2018) History of appendectomy S/P dilatation of esophageal stricture (~2020) History of [place] fundoplication (~2019) History of esophagogastroduodenoscopy (EGD) (~2020) Family History Father Blood clots in brain Diabetes Polio Mother Breast cancer Hiatal hernia Sister Cancer Brother Myocardial infarction Family/Other Throat cancer Stomach cancer Social History Household Members: Other Housing: Apartment Alcohol intake: current Alcohol intake frequency: does not drink Patient Tobacco Use Status: Current everyday Tobacco user Tobacco use type: Cigarette Cigarette Packs Per Day: 1 Cigarettes Per Day: 20 Years Smoked: 42 e-Cigarette/Vaping Use: Never Used Current occupational status: disabled Cognitive needs: No Hearing needs: No Vision needs: No Questionnaire Thrive Questionnaire Date Thrive assessed: 11/09/21 AUDIT C Alcohol Use Questionnaire (AUDIT-C) 1. How often do you have a drink containing alcohol?: Never 3. How often do you have six or more drinks on one occasion?: Never Total Score: 0 Score Reviewed/Action Taken: No DOMINGO-7 AMB Questionnaire DOMINGO-7 Date DOMINGO - 7 assessed: 11/09/21 Source: Developed by Drs. Alex Cerna, Clara Worthy, Kaushik Kilgore and colleagues, with an educational misti from [employer]. Review of Systems Const Denies chills and Denies fever(s) Eyes Denies blurry vision ENT Denies vertigo, Denies dizziness and Denies sore throat Card Denies chest pain at rest, Denies chest pain with activity, Denies diaphoresis, Denies dyspnea and Denies dyspnea on exertion Resp Denies cough, Denies dyspnea, Denies dyspnea on exertion and Denies wheezing GI Denies abdominal pain, Denies melena, Denies hematochezia, Denies constipation, Denies diarrhea and Denies loose stools Denies hematuria Musc Denies numbness and Denies tingling Skin/Breast Denies lesions Neuro Denies vertigo, Denies dizziness, Denies numbness and Denies tingling Psych Denies anxiety, Denies depression, Denies homicidal ideation, Denies suicidal ideation and Denies other (substance abuse) Aller/Immun Denies wheezing Physical exam (Primary Care) Vital Signs: Last Vital Signs Pulse 71 08/17/23 14:10 BP 110/70 08/17/23 14:10 Pulse Ox 95 08/17/23 14:10 Oxygen Delivery Method Room Air 08/17/23 14:10 BMI result Body Mass Index 27.5 Tobacco/Smoking Status: Tobacco use Status Tobacco use date assessed 05/18/23 08/17/23 14:09 Patient Tobacco Use Status Current everyday Tobacco 08/17/23 14:09 Tobacco use type Cigarette 08/17/23 14:09 e-Cigarette/Vaping Use Never Used 08/17/23 14:09 Thrive Assessment: Date of Thrive Assessment Date Thrive assessed 11/09/21 08/17/23 14:09 Const General: cooperative Nutritional Appearance: well nourished Orientation/consciousness: patient oriented x3 HENMT Head: Yes normal to inspection, Yes normocephalic and Yes atraumatic Ears: TM's normal bilaterally Eyes General: appearance normal, both eyes and all related structures Alignment and Position: alignment normal and position normal Neck Neck: Yes normal visual inspection and Yes no lymphadenopathy Thyroid: Thyroid normal Resp Effort & Inspection: normal respiratory effort Auscultation: diminished lung sounds Cardio Rate: regular rate Rhythm: regular rhythm Heart sounds: S1 normal heart sound present, S2 normal heart sound present and no murmurs GI Palpation (GI): Soft to palpation and nontender Auscultation: normal bowel sounds Skin Rashes: no rashes Neuro General: patient oriented x3, moves all extremities, no focal motor deficits and deep tendon reflexes 2+ bilaterally Romberg Test: Negative Extrem Other: +1 swelling to RLE, puffy, non-pitting, + dorsalis pedis pulse Psych Appearance: grossly normal Mental Status: mental status grossly normal Speech and movement: Normal speech and movement present Affect: normal affect Attitude: cooperative Thought process: Normal thought process present Thought content: Normal thought content present Insight: Good insight present (Psych) Judgement: Good judgement present (Psych) Assessment and Plan Assessment & Plan (1) Tubular adenoma of colon: Code(s): D12.6 - Benign neoplasm of colon, unspecified (2) Screening for colon cancer: Code(s): Z12.11 - Encounter for screening for malignant neoplasm of colon (3) Smoker: Code(s): F17.200 - Nicotine dependence, unspecified, uncomplicated Plan: Referred for low-dose CT, bone density ordered (4) Physical exam: Code(s): Z00.00 - Encounter for general adult medical examination without abnormal findings Plan: Labs ordered (5) Multiple pulmonary nodules: Code(s): R91.8 - Other nonspecific abnormal finding of lung field Plan: Referred for low-dose CT (6) Post-menopausal: Code(s): Z78.0 - Asymptomatic menopausal state Plan: Vitamin D ordered (7) Swelling of right lower extremity: Code(s): M79.89 - Other specified soft tissue disorders Plan: Referred to vascular, BNP ordered (8) Screening for cervical cancer: Code(s): Z12.4 - Encounter for screening for malignant neoplasm of cervix Plan: Referred to network control operators supervisor Plan The patient agreed to the use of a medical intern for this encounter. Scribed for PARVIN Trevino-BC by Amara Charles medical intern, on 08/17/2023 at 14:30 EST. Orders: Orders Comprehensive [place]. Panel Fast Today Z00.00 - Encounter for general adult medical examination without abnormal findings UA CC w/rflx Micro + Cult Today Z00.00 - Encounter for general adult medical examination without abnormal findings B Type Natriuretic Peptide Today M79.89 - Other specified soft tissue disorders XR DEXA axial skeleton Today F17.200 - Nicotine dependence, unspecified, uncomplicated Complete Blood Count Auto Diff Today Z00.00 - Encounter for general adult medical examination without abnormal findings TSH reflex Free T4 Today Z00.00 - Encounter for general adult medical examination without abnormal findings Lipid Panel Today Z00.00 - Encounter for general adult medical examination without abnormal findings Vitamin D 25-OH Total Today Z78.0 - Asymptomatic menopausal state Referrals Gastroenterology Referral D12.6 - Benign neoplasm of colon, unspecified, Z12.11 - Encounter for screening for malignant neoplasm of colon Vascular Surgery Referral M79.89 - Other specified soft tissue disorders SITE SURVEYOR Referral Z12.4 - Encounter for screening for malignant neoplasm of cervix Thoracic Surgery Referral F17.200 - Nicotine dependence, unspecified, uncomplicated, R91.8 - Other nonspecific abnormal finding of lung field Medications: New albuterol sulfate 90 mcg/actuation (Ventolin HFA) 2 puffs inhalation Q6H PRN 8.5 grams 2RF shortness of breath or wheezing Refilled levothyroxine 88 mcg PO DAILY 90 tabs 0RF 90 days Coding Level of Care Code Est Pt Prev Care 40-64y(96109) Diagnoses Tubular adenoma of colon D12.6 Screening for colon cancer Z12.11 Smoker F17.200 Physical exam Z00.00 Multiple pulmonary nodules R91.8 Post-menopausal Z78.0 Swelling of right lower extremity M79.89 Screening for cervical cancer Z12.4
[2023-08-17 14:10] VITALS: BP 110/70; PULSE 71; O2SAT 95; BMI 27.5
== END 2023-08-17 15:19 | disposition home or self-care (01) ==
PROVIDERS: PCP Nurse Practitioner Family; Visit Provider Nurse Practitioner Family
DX: Z00.00 Encounter for general adult medical examination without abnormal findings (principal); D12.6 Benign neoplasm of colon, unspecified; Z12.11 Encounter for screening for malignant neoplasm of colon; F17.200 Nicotine dependence, unspecified, uncomplicated; R91.8 Other nonspecific abnormal finding of lung field; Z78.0 Asymptomatic menopausal state; M79.89 Other specified soft tissue disorders
CPT/HCPCS: 99396

== ENCOUNTER 2023-09-05 09:37 | Outpatient (REF) | payer MEDICARE, MEDICAID, SELFPAY ==
[2023-09-05 10:48] LABS: MANUAL DIFF FLAG NO
[2023-09-05 11:08] LABS: Basophils Absolute Auto 0.1 X10*3/uL (0.0-0.2); Basophils Percent Auto 0.8 % (0-2); Eosinophils Absolute Auto 0.1 X10*3/uL (0.0-0.4); Eosinophils Percent Auto 1.8 % (0-4); Hematocrit 41.1 % (37.0-47.0); Hemoglobin 13.5 g/dl (12.0-16.0); Imm Gran Abs Auto 0.02 X10*3/uL (0.00-0.03); Imm Gran Pct Auto 0.3 % (0.0-0.4); Lymphocytes Absolute Auto 1.6 X10*3/uL (1.2-4.9); Lymphocytes Percent Auto 26.9 % (20-40); Mean Corpuscular HGB Conc 32.8 g/dl (31.0-35.0); Mean Corpuscular Hemoglobin 32.8 pg (27.0-33.0); Mean Platelet Volume 9.9 fL (9.4-12.3); Monocytes Absolute Auto 0.5 X10*3/uL (0.1-1.2); Monocytes Percent Auto 8.9 % (2-11); Neutrophils Absolute Auto 3.7 x10*3/uL (2.0-8.3); Neutrophils Percent Auto 61.3 % (45-73); Platelet Count 259 X10*3/uL (160-400); Red Blood Count 4.11 X10*6/uL (4.20-5.50); Red Cell Distribution Width 13.2 % (11.0-16.0)
[2023-09-05 11:25] LABS: B Type Natriuretic Peptide 114 pg/mL (<100)
[2023-09-05 11:36] LABS: Alanine Aminotransferase 13 U/L (0-31); Albumin Level 3.7 g/dL (3.5-5.0); Alkaline Phosphatase 102 U/L (39-117); Anion Gap 13 (12-20); Aspartate Amino Transferase 20 U/L (5-31); Bilirubin Total 0.2 mg/dL (0.0-1.0); Blood Urea Nitrogen 8 mg/dL (9-16); C Reactive Protein 0.58 mg/dL (< or = 0.50); Calcium 8.9 mg/dL (8.4-10.2); Carbon Dioxide 30 mmol/L (22-29); Chloride 107 mmol/L (96-108); Cholesterol 157 mg/dL (<200); Estimated Glomerular Filt Rate > 60; Glucose Fasting 81 mg/dL (60-99); Glucose Random 81 mg/dL (60-115); HDL Cholesterol 65 mg/dL (>40); LDL Cholesterol Calculated 81 mg/dL (<100); Potassium 4.6 mmol/L (3.3-5.1); Sodium 145 mmol/L (135-145); TSH reflex Free T4 7.02 uIU/mL (0.32-4.0); Total Protein 6.4 g/dL (6.5-8.0); Triglycerides 55 mg/dL (<150)
[2023-09-05 11:40] LABS: TSH reflex Free T4 7.01 uIU/mL (0.32-4.0); Vitamin D 25-OH Total 18.7 ng/mL (>30)
[2023-09-05 12:12] LABS: Free T4 (Free Thyroxine) 0.71 ng/dL (0.71-1.85)
[2023-09-06 13:19] LABS: Transglutaminase Ab IgG <1.0 U/mL; Transglutaminase IgA <1.0 U/mL
== END 2023-09-05 09:38 | disposition home or self-care (01) ==
LOC: HO.10HDL 09:37
PROVIDERS: Nurse Practitioner; Visit Provider Nurse Practitioner Family
DX: Z00.00 Encounter for general adult medical examination without abnormal findings (principal); R19.7 Diarrhea, unspecified; R10.9 Unspecified abdominal pain; M79.89 Other specified soft tissue disorders; Z78.0 Asymptomatic menopausal state; E78.5 Hyperlipidemia, unspecified; E55.9 Vitamin D deficiency, unspecified
CPT/HCPCS: 36415; 80053; 80061; 82306; 83880; 84439; 84443; 85025; 86140; 86364

== ENCOUNTER 2023-09-13 10:20 | Outpatient (AMB) | payer MEDICARE, MEDICAID, SELFPAY ==
--- NOTE | 2023-09-13 10:24 | MHC.OFFVIS ---
Intake Vital Signs 09/13/23 10:25 Height 4 ft 8.5 in Weight 121 lb 4.068 oz BMI 26.7 BP 118/72 Blood Pressure Location Lt brachial Position Sitting Pulse 80 Intake Visit Reasons: 1 month follow up Diarhrea, N/V Intake Note: Patient presents to in office visit today in one month follow up of diarrhea. CC: Patient states she is doing about the same and c/o epigastric pain, diarrhea, and N/V sometimes. Denies other GI concerns today. 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: No Accompanied by: Self / Same As Patient Allergies latex [LATEX] Allergy (Intermediate, Verified 09/13/23 10:29) RASH morphine [MORPHINE] Allergy (Intermediate, Verified 09/13/23 10:29) SWELLING alendronate sodium [From FOSAMAX] Allergy (Unknown, Verified 09/13/23 10:29) PER H+P levetiracetam [From KEPPRA] Adverse Reaction (Intermediate, Verified 09/13/23 10:29) DICKENS phenytoin [From DILANTIN] Adverse Reaction (Intermediate, Verified 09/13/23 10:29) CANT FUNCTION HPI 1 month follow up Diarhrea, N/V HPI Details Assessment & Plan (1) Dysphagia: Code(s): R13.10 - Dysphagia, unspecified Plan: Her dysphagia was improved for a while up to the dilation but now her swallowing trouble has returned. I explained that sometimes we need to do serial dilations before it stays were needs to so I will schedule her for another ana EGD. She has a new problem of pain in the center epigastric area with eating. This is happening with almost every meal. The only thing that relieves the pain is vomiting. She will occasionally have good days and she does not really know why this has changed. She has the most trouble with meats and she is uncertain what would happen with fried foods. She also has a new problem of diarrhea/loose stools. I think we need to get a GI panel to test for possible infections since this is of sudden onset over the past 4 weeks. I will also get some basic lab work said she has not had any for over a year to see if anything seems to arranged. She does still have a gallbladder so this is another possibility although it does not seem that fatty foods or big problem for her. Also get a CRP and fecal calprotectin. No changes to her medications for now and I will see her in 4 weeks. She continues on her metoclopramide and her lansoprazole. (2) GERD with esophagitis: Code(s): K21.00 - Gastro-esophageal reflux disease with esophagitis, without bleeding (3) Esophageal spasm: Code(s): K22.4 - Dyskinesia of esophagus (4) Esophageal stricture: Code(s): K22.2 - Esophageal obstruction (5) Delayed gastric emptying: Code(s): K30 - Functional dyspepsia (6) Tubular adenoma of colon: Comment: (TAs on 2013 & 2018 colonoscopies) Code(s): D12.6 - Benign neoplasm of colon, unspecified (7) Diarrhea: Code(s): R19.7 - Diarrhea, unspecified (8) Abdominal pain: Code(s): R10.9 - Unspecified abdominal pain Orders: Orders CDiff Gene PCR Today R10.9 - Unspecifie d abdominal pain, R19.7 - Diarrhea, unspecified Pancreatic Elastas e-1 Today R10.9 - Unspecifie d abdominal pain, R19.7 - Diarrhea, unspecified Transglutaminase I gA Today R10.9 - Unspecifie d abdominal pain, R19.7 - Diarrhea, unspecified Transglutaminase A b IgG Today R10.9 - Unspecifie d abdominal pain, R19.7 - Diarrhea, unspecified C Reactive Protein Today R10.9 - Unspecifie d abdominal pain, R19.7 - Diarrhea, unspecified EGD with [facility] - G I Use Only Today K22.2 - Esophageal obstruction, R13. 10 - Dysphagia, un specified GI Panel Today R10.9 - Unspecifie d abdominal pain, R19.7 - Diarrhea, unspecified Calprotectin, Feca l Today R10.9 - Unspecifie d abdominal pain, R19.7 - Diarrhea, unspecified Complete Blood Cou nt Auto Diff Today R10.9 - Unspecifie d abdominal pain, R19.7 - Diarrhea, unspecified Comprehensive Met. Panel Today R10.9 - Unspecifie d abdominal pain, R19.7 - Diarrhea, unspecified TSH reflex Free T4 Today R10.9 - Unspecifie d abdominal pain, R19.7 - Diarrhea, unspecified UA CC w/rflx Micro + Cult Today R10.9 - Unspecifie d abdominal pain, R19.7 - Diarrhea, unspecified LABS: Laboratory Tests 09/05/23 09:50 WBC 6.0 Hgb 13.5 Hct 41.1 MCV 100.0 H Plt Count 259 Estimated GFR > 60 Total Bilirubin 0.2 AST 20 ALT 13 Alkaline Phosphata se 102 C-Reactive Protein 0.58 H B-Natriuretic Pept inder 114 H TSH 7.02 H Free T4 0.71 Tiss Transglutamin IgG <1.0 Tiss Transglutamin IgA <1.0 NONE OF THE STOOL STUDIES WERE OBTAINED EGD Now scheduled for 09/20 BIOPSY TODAY'S VISIT PATIENT HAS BEEN LOST TO FOLLOW-UP SINCE 01/2022 She has the EGD scheduled for 09/20. She has continued dysphagia, she was eating shredded chicken and it got stuck, she got it back up but then my esophagus was not producing saliva and I could not swallow. She could only swallow if she drank a sip of tea. She still has intermittent trouble and pain with eating, but she has some good days and some bad days. She has lost 3 lbs. She still has diarrhea. So, her thyroid meds were recently increased in response the elevated TSH. However, it could be elevated due to an infectious process as a temporary pump. She continues to have diarrhea and concerns me with the elevated CRP that there is either infection or inflammatory process going on. She really feels like she has trouble getting the stool samples because she lives in a household with multiple other people, but I ask her to get hat from the lab to make it easier to collect a samples. It is really important that we get them because I do not know how to stop her diarrhea in the safest manner until I am sure whether not there is an infectious process. This couple with the fact that she has poor p.o. intake because of the swallowing orders is concerning. She has has she has lost 3 more lb. She saw her primary care provider recently and she feels they he said she needs a colonoscopy every year. This is not true she needs them every 5 years but she is due in 2023. Were not going to add this to the EGD because we need to do that stat at this time will consider the colonoscopy at a later date. This would be a poor time for colonoscopy given her swallowing issues the fact that she has sustained diarrhea. At this point I will see her after the endoscopy. Keep 10/06 appt after scope. [facility] Medical History (Updated 09/13/23 @ 10:37 by LILLIAN Lofton) Hypoglycemia Tremor Cerebral microvascular disease Hx of hiatal hernia Tubular adenoma of colon On beta matty at home Nicotine dependence, unspecified, uncomplicated Lumbosacral pain Lumbar stenosis Lumbar radiculitis Multiple pulmonary nodules COPD (chronic obstructive pulmonary disease) Osteoporosis Hypothyroid Depression Hyperlipidemia Hypertension Myocardial infarct CAD (coronary artery disease) Intracranial arachnoid cyst Cerebral atrophy Seizure Surgical History Hx of local excision of skin lesion History of foot surgery (~2013) History of tubal ligation History of heart artery stent (~2004) History of colonoscopy (~2018) History of appendectomy S/P dilatation of esophageal stricture (~2020) History of [place] fundoplication (~2019) History of esophagogastroduodenoscopy (EGD) (~2020) Family History Father Blood clots in brain Diabetes Polio Mother Breast cancer Hiatal hernia Sister Cancer Brother Myocardial infarction Family/Other Throat cancer Stomach cancer Social History Household Members: Other Housing: Apartment Alcohol intake: current Alcohol intake frequency: does not drink Patient Tobacco Use Status: Current everyday Tobacco user Tobacco use type: Cigarette Cigarette Packs Per Day: 1 Cigarettes Per Day: 20 Years Smoked: 42 e-Cigarette/Vaping Use: Never Used Current occupational status: disabled Cognitive needs: No Hearing needs: No Vision needs: No Review of Systems Const Denies fatigue, Denies fever(s), Denies night sweats, Reports poor appetite and Reports weight loss ENT Reports Normal hearing present, Denies dental pain, Reports dysphagia, Denies hearing loss, Denies mouth pain, Denies odynophagia, Denies throat swelling, Denies tongue swelling and Reports other (Dentition adequate) Card Reports no additional complaints Resp Reports no additional complaints GI Denies abdominal pain, Denies melena, Denies bloating, Denies hematochezia, Denies constipation, Denies GI cramping, Reports dysphagia, Denies excessive flatus, Denies early satiety, Reports heartburn, Reports diarrhea, Reports nausea, Denies odynophagia, Reports vomiting and Denies hematemesis Skin/Breast Denies pruritus, Denies lesions, Denies rash and Denies jaundice Neuro Reports Normal hearing present and Denies Abnormal speech present Endo Denies fatigue Aller/Immun Denies throat swelling and Denies tongue swelling Physical Exam Vital Signs: Last Vital Signs Pulse 80 09/13/23 10:25 BP 118/72 09/13/23 10:25 BMI result Body Mass Index 26.7 Const General: cooperative, no acute distress, well developed and well groomed Nutritional Appearance: average body habitus and well nourished Orientation/consciousness: oriented to person, oriented to place and oriented to time Limitations: No language barrier HEENT Other: hearing aids Head: Yes normocephalic and Yes atraumatic Eyes General: appearance normal, both eyes and all related structures Pupils: Equal, round and reactive pupils present Neck Neck: Yes normal visual inspection and Yes no lymphadenopathy Thyroid: Thyroid normal Resp Effort & Inspection: normal respiratory effort and able to speak in complete sentences Auscultation: clear to auscultation bilaterally Cardio Rate: regular rate Rhythm: regular rhythm Heart sounds: Normal, physiologic split S2 sound present Peripheral pulses: radial pulses present and posterior tibial pulses present GI Inspection: No distended and No Abdominal panniculus present Palpation (GI): Soft to palpation, nontender, no guarding, not rigid and No hepatosplenomegaly present Percussion: Yes normal to percussion Auscultation: normal bowel sounds Rectal Exam - Female: deferred Skin General skin exam: no rashes or lesions noted, turgor normal, skin not dry, no jaundice, No spider nevi and no striae Rashes: no rashes Nails: normal Neuro General: oriented to person, oriented to place and oriented to time Cranial nerves: Yes Equal, round and reactive pupils present and Yes Normal hearing present Speech: No Abnormal speech present Extrem General: Yes normal to inspection, No clubbing, No cyanosis and No edema Psych Appearance: grossly normal and well kempt Mental Status: mental status grossly normal Speech and movement: Normal speech and movement present Affect: normal affect Attitude: cooperative Thought process: Normal thought process present and not confabulating Thought content: Normal thought content present Insight: Limited insight present (Psych) Judgement: Limited judgement present (Psych) Results Reviewed Results Reviewed: 09/05/23 09:50 WBC 6.0 Hgb 13.5 Hct 41.1 MCV 100.0 H Plt Count 259 Estimated GFR > 60 Total Bilirubin 0.2 AST 20 ALT 13 Alkaline Phosphatase 102 C-Reactive Protein 0.58 H B-Natriuretic Peptide 114 H TSH 7.02 H Free T4 0.71 Tiss Transglutamin IgG <1.0 Tiss Transglutamin IgA <1.0 Assessment & Plan Assessment & Plan (1) Diarrhea: Code(s): R19.7 - Diarrhea, unspecified (2) GERD with esophagitis: Code(s): K21.00 - Gastro-esophageal reflux disease with esophagitis, without bleeding (3) Esophageal spasm: Code(s): K22.4 - Dyskinesia of esophagus (4) Dysphagia: Code(s): R13.10 - Dysphagia, unspecified (5) Esophageal stricture: Code(s): K22.2 - Esophageal obstruction (6) Delayed gastric emptying: Code(s): K30 - Functional dyspepsia (7) Tubular adenoma of colon: Comment: 2019 SCOPE= TA REPEAT IN 5 YEARS Code(s): D12.6 - Benign neoplasm of colon, unspecified Plan NONE OF THE STOOL STUDIES WERE OBTAINED EGD Now scheduled for 09/20 BIOPSY TODAY'S VISIT PATIENT HAS BEEN LOST TO FOLLOW-UP SINCE 01/2022 She has the EGD scheduled for 09/20. She has continued dysphagia, she was eating shredded chicken and it got stuck, she got it back up but then my esophagus was not producing saliva and I could not swallow. She could only swallow if she drank a sip of tea. She still has intermittent trouble and pain with eating, but she has some good days and some bad days. She has lost 3 lbs. She still has diarrhea. So, her thyroid meds were recently increased in response the elevated TSH. However, it could be elevated due to an infectious process as a temporary pump. She continues to have diarrhea and concerns me with the elevated CRP that there is either infection or inflammatory process going on. She really feels like she has trouble getting the stool samples because she lives in a household with multiple other people, but I ask her to get hat from the lab to make it easier to collect a samples. It is really important that we get them because I do not know how to stop her diarrhea in the safest manner until I am sure whether not there is an infectious process. This couple with the fact that she has poor p.o. intake because of the swallowing orders is concerning. She has has she has lost 3 more lb. She saw her primary care provider recently and she feels they he said she needs a colonoscopy every year. This is not true she needs them every 5 years but she is due in 2023. Were not going to add this to the EGD because we need to do that stat at this time will consider the colonoscopy at a later date. This would be a poor time for colonoscopy given her swallowing issues the fact that she has sustained diarrhea. At this point I will see her after the endoscopy. Keep 10/06 appt after scope. Medications: New dicyclomine Pt has trouble swallowing the pill version 20 mg (2 x 10 mg) PO QID 240 caps 6RF K22.4 - Dyskinesia of esophagus, R13.10 - Dysphagia, unspecified Refilled lansoprazole 30 mg PO BID 180 caps 2RF K21.00 - Gastro-esophageal reflux disease with esophagitis, without bleeding metoclopramide HCl 10 mg PO QID 120 tabs 6RF K30 - Functional dyspepsia Discontinued dicyclomine Discontinued Reason: Doctor's Order 20 mg PO QID 30 days 120 tabs 0RF K22.4 - Dyskinesia of esophagus Coding Level of Care Code Est Pt Level 3 (42080) Diagnoses Diarrhea R19.7 GERD with esophagitis K21.00 Esophageal spasm K22.4 Dysphagia R13.10 Esophageal stricture K22.2 Delayed gastric emptying K30 Tubular adenoma of colon D12.6
[2023-09-13 10:25] VITALS: BP 118/72; PULSE 80; BMI 26.7
== END 2023-09-13 11:06 | disposition home or self-care (01) ==
PROVIDERS: PCP Nurse Practitioner Family; Visit Provider Nurse Practitioner
DX: R19.7 Diarrhea, unspecified (principal); K21.00 Gastro-esophageal reflux disease with esophagitis, without bleeding; K22.4 Dyskinesia of esophagus; R13.10 Dysphagia, unspecified; K22.2 Esophageal obstruction; K30 Functional dyspepsia; D12.6 Benign neoplasm of colon, unspecified
CPT/HCPCS: 99213

== ENCOUNTER → 2023-09-13 10:20 | Outpatient (BNVA) | payer MEDICARE, MEDICAID, SELFPAY | PROVIDERS: PCP Nurse Practitioner Family; Visit Provider Nurse Practitioner | DX: R19.7 Diarrhea, unspecified (principal); R10.9 Unspecified abdominal pain; R13.10 Dysphagia, unspecified; K21.00 Gastro-esophageal reflux disease with esophagitis, without bleeding; K22.4 Dyskinesia of esophagus; K22.2 Esophageal obstruction; K30 Functional dyspepsia; D12.6 Benign neoplasm of colon, unspecified | CPT/HCPCS: 99212 ==

== ENCOUNTER 2023-09-19 10:54 | Outpatient (REF) | payer MEDICARE, MEDICAID, SELFPAY ==
--- NOTE | ~2023-09-19 | MR_ITS ---
EXAMINATION: MR BREAST WITHOUT AND WITH CONTRAST, BILATERAL CLINICAL INFORMATION: High-risk screening. COMPARISON: MRI 05/23/2020 TECHNIQUE: Imaging was performed with a dedicated breast coil. Prior to the administration of contrast, bilateral axial T1 and bilateral axial T2 weighted sequences were obtained. After the uneventful administration of?5.5 mL of Gadavist, dynamic contrast-enhanced VIBRANT series through the breasts in the axial plane were performed. Subtracted images were performed and reviewed. A delayed sagittal sequence through both breasts was acquired. Additionally, CAD post-processing, including maximum intensity projections, 3-D reconstructions and kinetic analysis, were performed an independent workstation and reviewed by the interpreting radiologist is a portion of this exam. FINDINGS: The patient's fibroglandular tissue demonstrates mild background enhancement. LEFT BREAST: No suspicious masslike or non-masslike enhancement. No abnormal skin thickening or nipple retraction. No abnormal architectural distortion. Review of the T2 weighted images demonstrates no fibrocystic changes or dilated ducts. Review of kinetic images reveals no additional findings. RIGHT BREAST: Stable enhancing foci, right breast, central region. No suspicious masslike or non-masslike enhancement. No abnormal skin thickening or nipple retraction. No abnormal architectural distortion. Review of the T2 weighted images demonstrates no fibrocystic changes or dilated ducts. Review of kinetic images reveals no additional findings. There is no suspicious internal mammary chain or axillary adenopathy. Limited views of the chest and abdomen are unremarkable. MR/MR breast BI wo/w con IMPRESSION: No MR specific evidence of malignancy. ASSESSMENT: LEFT BREAST: BI-RADS 1-Negative RIGHT BREAST: BI-RADS 2 - Benign Findings. RECOMMENDATIONS: Clinical follow-up. Continued annual mammographic surveillance. Further breast MRI as risk factors dictate.
[2023-09-19] MEDS: gadobutroL 7.5 ML VIAL IVPUSH (12:16)
== END 2023-09-19 10:55 | disposition home or self-care (01) ==
LOC: HO.MRI 10:54
PROVIDERS: PCP Nurse Practitioner Family; Visit Provider Surgery
DX: Z12.39 Encounter for other screening for malignant neoplasm of breast (principal)
CPT/HCPCS: 77049; A9585

== ENCOUNTER 2023-09-20 11:24 | Day surgery (SDC) | payer MEDICARE, MEDICAID, SELFPAY ==
[2023-09-16 09:13] VITALS: BMI 26.7
--- NOTE | 2023-09-19 09:25 | HO.ANESPROP2 ---
Documented by User: Sue Vasquez NP 09/19/23 09:26 HPI - Anesthesia Eval Consult details Narrative: 57yo F for Upper Endoscopy s/p EGD 01/2023 with TIVA CAD Follows cardiology prn only. Last seen 5 years ago. No CP/SOB PMFSH Active Problems Active Problems: All Active Problems (Updated 09/13/23 @ 10:37 by LILLIAN Lofton) Elevated TSH (Acute) Screening for cervical cancer (Acute) Post-menopausal (Acute) Physical exam (Acute) Smoker (Acute) Screening for colon cancer (Acute) Abdominal pain (Acute) Diarrhea (Acute) Dyslipidemia (Acute) Weakness (Acute) Pain in right leg (Acute) Swelling of right lower extremity (Acute) Pre-op examination (Acute) Breast cancer screening, high risk patient (Acute) Edema (Acute) Bilateral knee pain (Acute) Bilateral hip pain (Acute) Delayed gastric emptying (Acute) Cardiomegaly (Acute) Microscopic hematuria (Acute) Pleuritic pain (Acute) Esophageal stricture (Acute) Epigastric pain (Acute) Dysphagia (Acute) Esophageal spasm (Acute) GERD with esophagitis (Acute) Hypertension (Acute) Tubular adenoma of colon (Acute) Seizure (Acute) Hypothyroid (Acute) Multiple pulmonary nodules (Acute) Past Medical History Medical History (Updated 09/13/23 @ 10:37 by LILLIAN Lofton) Hypoglycemia Tremor Cerebral microvascular disease Hx of hiatal hernia Tubular adenoma of colon On beta matty at home Nicotine dependence, unspecified, uncomplicated Lumbosacral pain Lumbar stenosis Lumbar radiculitis Multiple pulmonary nodules COPD (chronic obstructive pulmonary disease) Osteoporosis Hypothyroid Depression Hyperlipidemia Hypertension Myocardial infarct CAD (coronary artery disease) Intracranial arachnoid cyst Cerebral atrophy Seizure Family History Family History Father Blood clots in brain Diabetes Polio Mother Breast cancer Hiatal hernia Sister Cancer Brother Myocardial infarction Family/Other Throat cancer Stomach cancer Family history of problems with anesthesia: No Surgical History Surgical History (Updated 09/16/23 @ 09:07 by Kaycee Quinn RN) Hx of local excision of skin lesion History of foot surgery (~2013) History of tubal ligation History of heart artery stent (~2004) History of colonoscopy (~2018) History of appendectomy S/P dilatation of esophageal stricture (~2020) History of [place] fundoplication (~2019) History of esophagogastroduodenoscopy (EGD) (~2020) History of Problems with Anesthesia: No Social History Social History Household Members: Other Housing: Apartment Alcohol intake: current Alcohol intake frequency: does not drink Patient Tobacco Use Status: Current everyday Tobacco user Tobacco use type: Cigarette Cigarette Packs Per Day: 0.5 Cigarettes Per Day: 10.0 Years Smoked: 42 e-Cigarette/Vaping Use: Never Used Second Hand Smoke Exposure: No Current occupational status: disabled Cognitive needs: No Hearing needs: No Vision needs: No Meds Allergies Allergy/AdvReac Type Severity Reaction Status Date / Time latex [LATEX] Allergy Intermediate RASH Verified 09/13/23 10:29 morphine [MORPHINE] Allergy Intermediate SWELLING Verified 09/13/23 10:29 alendronate sodium Allergy Unknown PER H+P Verified 09/13/23 10:29 [From FOSAMAX] levetiracetam [From KEPPRA] AdvReac Intermediate DICKENS Verified 09/13/23 10:29 phenytoin [From DILANTIN] AdvReac Intermediate CANT Verified 09/13/23 10:29 FUNCTION Home Medications Medication Instructions Recorded Confirmed Last Taken Type clonazepam 0.5 mg tablet 0.5 mg PO DAILY PRN Anxiety 09/12/20 09/16/23 06/04/21 History mirtazapine 45 mg tablet 45 mg PO BEDTIME 09/12/20 09/16/23 06/04/21 History quetiapine 300 mg tablet,extended 300 mg PO BEDTIME 09/12/20 09/16/23 06/04/21 History release 24 hr sertraline 100 mg tablet 200 mg PO QAM 04/28/21 09/16/23 06/04/21 History zolpidem 10 mg tablet 10 mg PO BEDTIME 01/21/23 09/16/23 Unknown History primidone 50 mg tablet 50 mg PO TID 08/11/23 09/16/23 Unknown History divalproex 500 mg tablet,extended 500 mg PO TID 09/13/23 09/16/23 Unknown History release 24 hr Exam Height,Weight and Vital Signs: Height 4 ft 8.5 in Weight 55.066 kg Pertinent Lab Results Pertinent Lab Results: Laboratory Tests 09/05/23 09:50 WBC 6.0 Hgb 13.5 Hct 41.1 Plt Count 259 Sodium 145 Potassium 4.6 Chloride 107 Carbon Dioxide 30 H BUN 8 L Creatinine 0.77 Assessment and Plan Assessment Anesthesia Assessment: Chart Reviewed Final Anesthetic Review Family History of Problems with Anesthesia: No History of Problems with Anesthesia: No Documented by User: Jese Mehta MD 09/20/23 12:27 [facility] Past Medical History Medical History (Updated 09/13/23 @ 10:37 by LILLIAN Lofton) Hypoglycemia Tremor Cerebral microvascular disease Hx of hiatal hernia Tubular adenoma of colon On beta matty at home Nicotine dependence, unspecified, uncomplicated Lumbosacral pain Lumbar stenosis Lumbar radiculitis Multiple pulmonary nodules COPD (chronic obstructive pulmonary disease) Osteoporosis Hypothyroid Depression Hyperlipidemia Hypertension Myocardial infarct CAD (coronary artery disease) Intracranial arachnoid cyst Cerebral atrophy Seizure Family History Family History Father Blood clots in brain Diabetes Polio Mother Breast cancer Hiatal hernia Sister Cancer Brother Myocardial infarction Family/Other Throat cancer Stomach cancer Surgical History Surgical History (Updated 09/16/23 @ 09:07 by Kaycee Quinn RN) Hx of local excision of skin lesion History of foot surgery (~2013) History of tubal ligation History of heart artery stent (~2004) History of colonoscopy (~2018) History of appendectomy S/P dilatation of esophageal stricture (~2020) History of [place] fundoplication (~2019) History of esophagogastroduodenoscopy (EGD) (~2020) Social History Social History Household Members: Other Housing: Apartment Alcohol intake: current Alcohol intake frequency: does not drink Patient Tobacco Use Status: Current everyday Tobacco user Tobacco use type: Cigarette Cigarette Packs Per Day: 0.5 Cigarettes Per Day: 10.0 Years Smoked: 42 e-Cigarette/Vaping Use: Never Used Second Hand Smoke Exposure: No Current occupational status: disabled Cognitive needs: No Hearing needs: No Vision needs: No Meds Allergies Allergy/AdvReac Type Severity Reaction Status Date / Time latex [LATEX] Allergy Intermediate RASH Verified 09/13/23 10:29 morphine [MORPHINE] Allergy Intermediate SWELLING Verified 09/13/23 10:29 alendronate sodium Allergy Unknown PER H+P Verified 09/13/23 10:29 [From FOSAMAX] levetiracetam [From KEPPRA] AdvReac Intermediate DICKENS Verified 09/13/23 10:29 phenytoin [From DILANTIN] AdvReac Intermediate CANT Verified 09/13/23 10:29 FUNCTION Home Medications Medication Instructions Recorded Confirmed Last Taken Type clonazepam 0.5 mg tablet 0.5 mg PO DAILY PRN Anxiety 09/12/20 09/16/23 06/04/21 History mirtazapine 45 mg tablet 45 mg PO BEDTIME 09/12/20 09/16/23 06/04/21 History quetiapine 300 mg tablet,extended 300 mg PO BEDTIME 09/12/20 09/16/23 06/04/21 History release 24 hr sertraline 100 mg tablet 200 mg PO QAM 04/28/21 09/16/23 06/04/21 History zolpidem 10 mg tablet 10 mg PO BEDTIME 01/21/23 09/16/23 Unknown History primidone 50 mg tablet 50 mg PO TID 08/11/23 09/16/23 Unknown History divalproex 500 mg tablet,extended 500 mg PO TID 09/13/23 09/16/23 Unknown History release 24 hr Exam Airway Mallampati Class: II TM Dist: >3cm Neck ROM: Limited Heart: rrr Lungs: cta Assessment and Plan Assessment Anesthesia Assessment: Anesthesia Plan Discussed Final Anesthetic Review NPO: Yes ASA Class: III Final Preanesthetic Review: No Changes in Pt Med Stat, Meds/Allgs Chart Reviewed, Consent Obtained/Reviewed and Anes Risks/Benef Reviewed Patient Risk: Intermediate Procedure Risk: Intermediate Anesthetic Plan Anesthetic Plan: GA and Agree w/ Assess. and Plan Disposition: Standard PACU
[2023-09-20 11:46] VITALS: BMI 26.8
[2023-09-20 12:27] VITALS: BP 126/93; PULSE 76; RESP 16; TEMP 36.4; O2SAT 96
[2023-09-20] MEDS: Lactated Ringers 1,000 ML 100 ML IVCONT (12:28)
--- NOTE | 2023-09-20 12:35 | MHC.SHP ---
Pre-Procedural Eval Section A Date of Service: 09/20/23 The patient is an INPATIENT: No The History & Physical has been completed within 30 days and I have reviewed it.: Yes Section B Chief Complaint: Dysphagia, epigastric pain Allergies: Allergies Allergy/AdvReac Type Severity Reaction Status Date / Time latex [LATEX] Allergy Intermediate RASH Verified 09/13/23 10:29 morphine [MORPHINE] Allergy Intermediate SWELLING Verified 09/13/23 10:29 alendronate sodium Allergy Unknown PER H+P Verified 09/13/23 10:29 [From FOSAMAX] levetiracetam [From KEPPRA] AdvReac Intermediate DICKENS Verified 09/13/23 10:29 phenytoin [From DILANTIN] AdvReac Intermediate CANT Verified 09/13/23 10:29 FUNCTION Plan Diagnosis/Plan: Unchanged I have reviewed the history and physical and performed a pertinent physical examination on my patient. No changes have occurred unless specified. Time Spent With Patient Time: Total time managing care of this patient today ____ minutes.
--- NOTE | 2023-09-20 12:58 | W.PM.OPN ---
Operative Note Operative Note Date of Service: 09/20/23 Narrative: FLEXIBLE TRANSORAL UPPER GASTROINTESTINAL ENDOSCOPY WITH BIOPSIES AND ESOPHAGEAL BALLOON DILATION Pre-op diagnosis: Dysphagia, abnormal barium swallow, epigastric pain Post-op diagnosis: Dysphagia, gastric erosions, duodenal nodule Endoscopist:? Je Wolff MD Anesthesia:?MAC Consent: Indications for the procedure and potential complications of bleeding, perforation, reaction to medications and missed diagnosis were discussed with the patient and informed consent was obtained. Instrument: Olympus GIF H 190 mid size upper endoscope Monitoring: Vital signs and clinical assessment, continuous EKG monitoring, Pulse oximetry, Carbon Dioxide monitoring and blood pressure monitoring were done throughout the procedure. Procedure: The patient was placed in the left lateral decubitis position and pre-procedure medications were administered and a bite block was placed. The endoscope was inserted into the mouth and advanced under direct vision to the third part of duodenum. A careful inspection was made as the upper endoscope was withdrawn including a retroflexed examination of the proximal stomach; Findings and interventions are described below. Findings: Larynx: Normal Esophagus:?Tortuous esophagus with increased tertiary contractions without stricture, ring, esophagitis or Barretts - (biopsies obtained from proximal esophagus during past EGD were negative for EOE).?? GE junction at 35 cms.? Empiric balloon dilation was performed with 20 mm (60 F) CRE balloon x 60 seconds. Stomach:?Moderate gastric erythema. A few 1-2 cms chronic appearing erosions in the gastric body - biopsies Antral biopsies were obtained to check for H Pylori). Grade 2 flap valve on retroflexed examination of the cardia. Duodenum:?Normal bulb. A 7-8 mm benign appearing polyp/nodule in the lateral wall of the 3rd part of duodenum - biopsies were obtained Intervention: Biopsies and esophageal balloon dilation as noted above Impression and Post Procedure Diagnosis: Endoscopy Findings: ESOPHAGUS: Tortuous esophagus with increased tertiary contractions without stricture or ring - (biopsies obtained from proximal esophagus during past EGD were negative for EOE).?? GE junction at 35 cms.? Empiric balloon dilation was performed with 20 mm (60 F) CRE balloon x 60 seconds. STOMACH: Gastritis and chronic appearing gastric erosions DUODENUM: Benign appearing nodule in the descending duodenum Plan: Consider further evaluation with high resolution manometry to determine etiology for dysphagia. Repeated esophageal dilation not likely to be helpful. Pt advised to quit smoking (pt stated she is smokes 1/2 pack per day and has requested a prescription for Chantix from her PCP). Patient has an appointment on 10/06/23 in the GI Clinic with Gisella Sparks NP
[2023-09-20 13:28] VITALS: BP 126/93; PULSE 76; RESP 16; TEMP 36.4; O2SAT 96
[2023-09-20 13:43] VITALS: BP 120/73; PULSE 71; RESP 18; TEMP 36.4; O2SAT 97
== END 2023-09-20 14:26 | disposition home or self-care (01) ==
PROVIDERS: PCP Nurse Practitioner Family; Visit Provider Internal Medicine Gastroenterology
PROC: 0DJ08ZZ Inspection of Upper Intestinal Tract, Via Natural or Artificial Opening Endoscopic (ICD-10-PCS; CPT 43235; principal; 2023-09-20 12:40)
DX: K31.7 Polyp of stomach and duodenum (principal); K29.60 Other gastritis without bleeding; R13.10 Dysphagia, unspecified; K22.4 Dyskinesia of esophagus; K22.2 Esophageal obstruction; I10 Essential (primary) hypertension; E78.5 Hyperlipidemia, unspecified; J44.9 Chronic obstructive pulmonary disease, unspecified; E03.9 Hypothyroidism, unspecified; I25.2 Old myocardial infarction; F17.210 Nicotine dependence, cigarettes, uncomplicated; Z79.02 Long term (current) use of antithrombotics/antiplatelets; Z79.82 Long term (current) use of aspirin; Z79.899 Other long term (current) drug therapy
CPT/HCPCS: 43249; 43239; 82656; 83993; 87493; 87507; 88305; 88342; C1726; J2704

== ENCOUNTER → 2023-09-20 11:24 | Outpatient (BNV) | payer MEDICARE, MEDICAID, SELFPAY | PROVIDERS: PCP Nurse Practitioner Family; Visit Provider Internal Medicine Gastroenterology | DX: R13.10 Dysphagia, unspecified (principal); K25.9 Gastric ulcer, unspecified as acute or chronic, without hemorrhage or perforation; K31.89 Other diseases of stomach and duodenum; R10.13 Epigastric pain | CPT/HCPCS: 43239; 43249 ==

== ENCOUNTER 2023-09-20 11:43 | Outpatient (REF) | payer MEDICARE, MEDICAID, SELFPAY ==
[2023-09-20 13:05] LABS: CDiff Gene PCR NEGATIVE (Negative)
[2023-09-20 14:39] LABS: Adenovirus F 40/41 Not Detected (Not Detect.); Astrovirus Not Detected (Not Detect.); Campylobacter Not Detected (Not Detect.); Cryptosporidium Not Detected (Not Detect.); Cyclospora cayetanensis Not Detected (Not Detect.); E. coli EAEC Not Detected (Not Detect.); E. coli EPEC Not Detected (Not Detect.); E. coli ETEC Not Detected (Not Detect.); E. coli STEC Not Detected (Not Detect.); Entamoeba histolytica Not Detected (Not Detect.); Giardia lamblia Not Detected (Not Detect.); Norovirus GI/GII Not Detected (Not Detect.); Plesiomonas shigelloides Not Detected (Not Detect.); Rotavirus A Not Detected (Not Detect.); Salmonella Not Detected (Not Detect.); Sapovirus Not Detected (Not Detect.); Shigella sp./EIEC Not Detected (Not Detect.); Vibrio Not Detected (Not Detect.); Vibrio Cholerae Not Detected (Not Detect.); Yersinia enterocolitica Not Detected (Not Detect.)
[2023-09-26 23:13] LABS: Calprotectin, Fecal 6 mcg/g
[2023-09-27 19:48] LABS: Pancreatic Elastase-1 >500 mcg/g
== END 2023-09-20 11:44 | disposition home or self-care (01) ==
LOC: HO.LNP 11:43
PROVIDERS: Visit Provider Nurse Practitioner
DX: Z13.89 Encounter for screening for other disorder (principal)
CPT/HCPCS: 82656; 83993; 87493; 87507; 88305; 88342; C1726; J2704

== ENCOUNTER 2023-10-13 10:22 | Outpatient (AMB) | payer MEDICARE, MEDICAID, SELFPAY ==
[2023-10-13 10:24] VITALS: BP 122/88; PULSE 76; O2SAT 96; BMI 26.6
--- NOTE | 2023-10-13 10:24 | MHC.OFFVIS ---
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 Pt states she started having right leg swelling a few months ago. Pt states she has pain in her right calf that goes down to her foot. Pt states she has not tried compression stockings.Pt states she also get numbness and tingling in her leg and feet. She states she has dicoloration in her foot and ankle. 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 Complaints include pain over varicosities, swelling of lower extremities, cramping, fatigue, and heaviness of the lower extremities. It has been affecting there daily activities including walking. It is noted more so in right leg. She also complains of pain on the plantar aspect of the foot. Of note she does have a prior history of a stroke. Patient denies any previous venous surgery or injections. Patient denies any history of DVT/ PE. Patient denies any history of phlebitis. Trial of compression includes - [id number] They now present for vascular evaluation regarding their varicose veins. [facility] Medical History Hypoglycemia Tremor Cerebral microvascular disease Hx of hiatal hernia Tubular adenoma of colon On beta matty at home Nicotine dependence, unspecified, uncomplicated Lumbosacral pain Lumbar stenosis Lumbar radiculitis Multiple pulmonary nodules COPD (chronic obstructive pulmonary disease) Osteoporosis Hypothyroid Depression Hyperlipidemia Hypertension Myocardial infarct CAD (coronary artery disease) Intracranial arachnoid cyst Cerebral atrophy Seizure Surgical History Hx of local excision of skin lesion History of foot surgery (~2013) History of tubal ligation History of heart artery stent (~2004) History of colonoscopy (~2018) History of appendectomy S/P dilatation of esophageal stricture (~2020) History of [place] fundoplication (~2019) History of esophagogastroduodenoscopy (EGD) (~2020) Family History Father Blood clots in brain Diabetes Polio Mother Breast cancer Hiatal hernia Sister Cancer Brother Myocardial infarction Family/Other Throat cancer Stomach cancer Social History Household Members: Other Housing: Apartment Alcohol intake: current Alcohol intake frequency: does not drink Patient Tobacco Use Status: Current everyday Tobacco user Tobacco use type: Cigarette Cigarette Packs Per Day: 0.5 Cigarettes Per Day: 10.0 Years Smoked: 42 e-Cigarette/Vaping Use: Never Used Second Hand Smoke Exposure: No Current occupational status: disabled Cognitive needs: No Hearing needs: No Vision needs: No Review of Systems Const Reports as per HPI ENT Reports no additional complaints Card Denies chest pain, Denies chest pain at rest and Denies chest pain with activity Resp Denies chest congestion and Denies cough GI Reports no additional complaints Musc Details: pain over varicosities, aching of lower extremities, swelling, cramping, heaviness and tiredness, itching Denies abnormal gait Skin/Breast Reports pruritus and Denies wounds Neuro Reports no additional complaints and Denies abnormal gait Psych Denies no additional complaints Physical Exam Vital Signs: Last Vital Signs Pulse 76 10/13/23 10:24 BP 122/88 10/13/23 10:24 Pulse Ox 96 10/13/23 10:24 Oxygen Delivery Method Room Air 10/13/23 10:24 BMI result Body Mass Index 26.6 Const General: cooperative, healthy appearing and comfortable Orientation/consciousness: oriented to person, oriented to place and oriented to time Neck Carotids: no bruits Chest Chest palpation & inspection: normal inspection of the chest and normal palpation of entire chest wall Resp Effort & Inspection: normal respiratory effort and able to speak in complete sentences Cardio Rate: regular rate Heart sounds: S1 normal heart sound present and S2 normal heart sound present Peripheral pulses: Peripheral pulses 2+ throughout GI Inspection: Yes normal to inspection Skin Other: +2 edema, right leg greater than left CEAP Classification C4 - skin color changes Ep - Etiology Primary As - superficial veins P - reflux General skin exam: dry skin Neuro General: oriented to person, oriented to place and oriented to time Extrem Right lower extremity: full ROM, normal capillary refill and edema Left lower extremity: full ROM, normal capillary refill and edema Psych Mental Status: mental status grossly normal Assessment & Plan Assessment & Plan (1) Varicose veins of right lower extremity with inflammation: Code(s): I83.11 - Varicose veins of right lower extremity with inflammation Plan: In short, the patient has evidence of venous insufficiency. I have discussed the pathophysiology with the patient. In addition I have provided informational material regarding venous disease to the patient. We have discussed conservative measures including compression, elevation, and exercise. I have also provided a handout regarding appropriate use of compression stockings and where to purchase good compression stockings as well. I have taken the liberty of ordering venous insufficiency testing with the patient. They will follow up with me after testing. The patient had an opportunity to ask questions regarding the treatment plan. All questions were answered. Imaging studies, laboratory studies and physical exam results were discussed and reviewed in detail. No major barriers to understanding were identified. The patient expressed understanding and agreement with the above treatment plan. The patient is aware they should contact our office by phone for worsening of the current condition or the appearance of new symptoms. Thank you for allowing me to participate in the vascular care of this patient. If you have any questions or concerns regarding the treatment for the above condition please do not hesitate to contact me. The office telephone contact is [phone]. This note is constructed using voice recognition software. While every effort has been made to ensure accuracy, research project coordinator errors may have been included. Thank you for allowing me to participate in the care of your patient. Yours sincerely, Jonathan Meadows MD, FACS, R.P.V.I. Orders: Orders US venous duplex LE BI 1 Week I83.11 - Varicose veins of right lower extremity with inflammation Coding Level of Care Code New Pt Level 4 (33400) Diagnoses Varicose veins of right lower extremity with inflammation I83.11
== END 2023-10-13 10:52 | disposition home or self-care (01) ==
PROVIDERS: PCP Nurse Practitioner Family; Visit Provider Surgery Vascular Surgery
DX: I83.11 Varicose veins of right lower extremity with inflammation (principal)
CPT/HCPCS: 99203

== ENCOUNTER → 2023-10-13 10:22 | Outpatient (BNVA) | payer MEDICARE, MEDICAID, SELFPAY | PROVIDERS: PCP Nurse Practitioner Family; Visit Provider Surgery Vascular Surgery | DX: I83.11 Varicose veins of right lower extremity with inflammation (principal) | CPT/HCPCS: 99202 ==

== ENCOUNTER 2023-10-28 10:08 | Outpatient (AMB) | payer MEDICARE, MEDICAID, SELFPAY ==
--- NOTE | 2023-10-28 10:24 | A.OFFVIS_ITS ---
Intake Intake Visit Reasons: LDCT SD Allergies latex [LATEX] Allergy (Intermediate, Verified 10/13/23 10:26) RASH morphine [MORPHINE] Allergy (Intermediate, Verified 10/13/23 10:26) SWELLING alendronate sodium [From FOSAMAX] Allergy (Unknown, Verified 10/13/23 10:26) PER H+P levetiracetam [From KEPPRA] Adverse Reaction (Intermediate, Verified 10/13/23 10:26) DICKENS phenytoin [From DILANTIN] Adverse Reaction (Intermediate, Verified 10/13/23 10:26) CANT FUNCTION HPI HPI Comments History of Present Illness Details Yuli is a pleasant 58 year old female, current smoker with a 33+ PYH. Patient has been smoking since age 13 for 45 years at 1/2 to 1 ppd. Denies marijuana use. Denies exposure to chemicals or substances like asbestos. Admits second hand smoke exposure. Reports paternal grandmother with history of lung cancer. Reports personal history of skin cancer, removed within the past 5 years from ankle unsure of type. Denies chest CT in last year. Denies recent travel outside the [place]. Admits testing positive for COVID. Admits receiving COVID Vaccine x 2 Denies fever, chills, chest pain, new cough (survey states new, however chronic), hemoptysis or unintentional weight loss. Lung Cancer Screening Questionnaire reviewed with patient by provider. Shared Decision Making Completed. Discussed in detail with patient, the risk versus benefit of LDCT screening. Patient in agreement of proceeding with scan. [facility] Medical History Hypoglycemia Tremor Cerebral microvascular disease Hx of hiatal hernia Tubular adenoma of colon On beta matty at home Nicotine dependence, unspecified, uncomplicated Lumbosacral pain Lumbar stenosis Lumbar radiculitis Multiple pulmonary nodules COPD (chronic obstructive pulmonary disease) Osteoporosis Hypothyroid Depression Hyperlipidemia Hypertension Myocardial infarct CAD (coronary artery disease) Intracranial arachnoid cyst Cerebral atrophy Seizure Surgical History Hx of local excision of skin lesion History of foot surgery (~2013) History of tubal ligation History of heart artery stent (~2004) History of colonoscopy (~2018) History of appendectomy S/P dilatation of esophageal stricture (~2020) History of [place] fundoplication (~2020) History of esophagogastroduodenoscopy (EGD) (~2020) Family History (Updated 10/28/23 @ 10:52 by Kimmy Mendoza NP) Father Blood clots in brain Diabetes Polio Mother Breast cancer Hiatal hernia Sister Cancer Brother Myocardial infarction Family/Other Throat cancer Stomach cancer Paternal Grandmother Cancer Social History Household Members: Other Housing: Apartment Alcohol intake: current Alcohol intake frequency: does not drink Patient Tobacco Use Status: Current everyday Tobacco user Tobacco use type: Cigarette Cigarette Packs Per Day: 0.5 Cigarettes Per Day: 10.0 Years Smoked: 42 e-Cigarette/Vaping Use: Never Used Second Hand Smoke Exposure: No Current occupational status: disabled Cognitive needs: No Hearing needs: No Vision needs: No Assessment & Plan Assessment & Plan (1) Smoker: Code(s): F17.200 - Nicotine dependence, unspecified, uncomplicated Plan Shared decision-making visit completed today in office. This patient meets criteria for LDCT for lung cancer screening purposes and is asymptomatic. Offered smoking cessation. Patient has been scheduled for a low dose chest CT for screening purposes at [facility]. We discussed how the results will be obtained depending on CT findings. RADS 1 and RADS 2 will receive a letter with results and will follow up for annual LDCT. Patient informed they will be contacted at later date to schedule upcoming LDCT scan. RADS 3 and RADS 4 will receive a telephone call, or an office visit after reviewing case at our Lung Cancer Conference to determine when the next LDCT will be scheduled or further interventions that may be needed. Discussed importance of screening program and compliance with yearly LDCT scan as scheduled. Risks, benefits, and alternatives were discussed in detail and patient agrees to proceed. Risks discussed include but are not limited to: radiation exposure and possibility of additional intervention for benign disease. Benefits include detection of lung cancer at an early stage. A copy of today's visit and LDCT results will be sent to patient's PCP. Incidental findings on LDCT are PCP's responsibility. If there are incidental findings, our office will ensure that PCP office is aware of these findings. All questions were answered and patient is in agreement of plan. Coding Level of Care Code Lung Cancer Screening [id number] Diagnoses Smoker F17.200
== END 2023-10-28 10:19 | disposition home or self-care (01) ==
PROVIDERS: PCP Nurse Practitioner Family; Visit Provider Nurse Practitioner Family
DX: F17.200 Nicotine dependence, unspecified, uncomplicated (principal)
CPT/HCPCS: G0296

== ENCOUNTER 2023-10-28 10:41 | Outpatient (REF) | payer MEDICARE, MEDICAID, SELFPAY ==
--- NOTE | ~2023-10-28 | CT_ITS ---
EXAMINATION: CT CHEST SCREENING CLINICAL INFORMATION: Current smoker one pack per day. 55 pack-year history. COMPARISON: CT chest 08/18/2020 TECHNIQUE: Multidetector volumetric CT imaging of the chest is performed without contrast using low dose technique. Additional 2D coronal and sagittal reformatted images and axial 3D maximum intensity projection (MIP) images are generated on the CT workstation. This CT examination was performed using dose optimization techniques as appropriate, variously including the following: *Automated exposure control *Adjustment of mA and/or kV according to patient size (this includes techniques or standardized protocols for targeted exams where dose is matched to indication/reason for exam; i.e. extremities or head) *Use of iterative reconstruction technique DLP: 34 mGy-cm FINDINGS: LUNGS: Emphysema is present. Multiple scattered calcified granulomas are present. There is one curvilinear ground-glass opacity seen in the right upper lobe measuring 8 mm in length (5:117) unchanged from prior (prior 5:124). There is a single 3 mm noncalcified pulmonary nodule in the right upper lobe (5:165) unchanged from prior (prior 5:155). At the time of the prior study from 2019, multiple other ground-glass opacities were present, which have cleared in the interim. MEDIASTINUM: Heart size normal. Trace pericardial effusion is present. No mediastinal or hilar lymphadenopathy. CORONARY ARTERY CALCIFICATION: A stent is present in the left anterior descending artery. PLEURA: There is no pleural effusion. No pleural mass or thickening. AXILLA: No lymphadenopathy. UPPER ABDOMEN: Unremarkable OSSEOUS STRUCTURES: Compression fractures of the superior endplates of 2 mid thoracic vertebral bodies are unchanged when compared to the 08/18/[address]/CT lung screening IMPRESSION: Pulmonary emphysema. Unchanged pulmonary nodules. ASSESSMENT: Lung-RADS category 2: Benign RECOMMENDATION: Routine annual low-dose CT screening in 12 months.
== END 2023-10-28 10:42 | disposition home or self-care (01) ==
LOC: HO.CT 10:41
PROVIDERS: PCP Nurse Practitioner Family; Visit Provider Nurse Practitioner Family
DX: F17.210 Nicotine dependence, cigarettes, uncomplicated (principal)
CPT/HCPCS: 71271; G0296

== ENCOUNTER 2023-11-10 10:42 | Outpatient (REF) | payer MEDICARE, MEDICAID, SELFPAY ==
--- NOTE | ~2023-11-10 | US_ITS ---
.EXAMINATION: US LOWER EXTREMITY VENOUS (REFLUX EXAM), BILATERAL CLINICAL INDICATION: Varicose veins COMPARISON: Right lower extremity duplex on 05/19/2023 TECHNIQUE: Color flow triplex imaging and compression Doppler was performed to evaluate both the deep and the superficial systems bilaterally. To evaluate the superficial system, the examination was performed in the upright position. Color-flow Doppler ultrasound and compression ultrasound were utilized. In addition, maneuvers were utilized to demonstrate reflux. FINDINGS: 1. DEEP VENOUS ULTRASOUND OF THE RIGHT LOWER EXTREMITY: Common Femoral Vein: Compressible, normal respiratory variation and augmented flow. Femoral Vein: Compressible, normal color flow and augmentation. Popliteal Vein: Compressible, normal augmentation. Deep Reflux: There is no evidence of reflux in the deep system in either the common femoral vein, superficial femoral or the popliteal vein. There is no evidence of a Donnelly's cyst. 2. SUPERFICIAL ULTRASOUND WITH DOPPLER OF RIGHT LOWER EXTREMITY: GREAT SAPHENOUS VEIN: Saphenofemoral Junction: 0.6 cm; Reflux: 0 ms Proximal Thigh: 0.4 cm; Reflux: 0 ms Mid Thigh: 0.3 cm; Reflux: 0 ms Above Knee: 0.3 cm; Reflux: 0 ms At Knee: 0.4 cm; Reflux: 0 ms Below Knee: 0.3 cm; Reflux: 1344 ms Mid Calf: 0.2 cm; Reflux: 2256 ms Ankle: 0.2 cm; Reflux: 0 ms DUPLICATED MEDIAL GREAT SAPHENOUS VEIN: Diameter: None imaged Reflux: NA DUPLICATED LATERAL GREAT SAPHENOUS VEIN: Diameter: None imaged Reflux: NA SMALL SAPHENOUS VEIN: Saphenopopliteal Junction: 0.2 cm; Reflux: 0 ms Proximal: 0.1 cm; Reflux: 0 ms Distal: 0.1 cm; Reflux: 0 ms VEIN OF GIACOMINI: Size: NA Reflux: NA PERFORATORS: Location: None imaged Size: NA Reflux: NA VARICOSITIES: Location: None imaged Size: NA Reflux: NA 3. DEEP VENOUS ULTRASOUND OF THE LEFT LOWER EXTREMITY: Common Femoral Vein: Compressible, normal respiratory variation and augmented flow. Femoral Vein: Compressible, normal color flow and augmentation. Popliteal Vein: Compressible, normal augmentation. Deep Reflux: There is no evidence of reflux in the deep system in either the common femoral vein, superficial femoral or the popliteal vein. There is no evidence of a Donnelly's cyst. 4. SUPERFICIAL ULTRASOUND WITH DOPPLER OF LEFT LOWER EXTREMITY: GREAT SAPHENOUS VEIN: Saphenofemoral Junction: 0.5 cm; Reflux: 0 ms Proximal Thigh: 0.3 cm; Reflux: 0 ms Mid Thigh: 0.2 cm; Reflux: 0 ms Above Knee: 0.2 cm; Reflux: 0 ms At Knee: 0.3 cm; Reflux: 0 ms Below Knee: 0.2 cm; Reflux: 0 ms Mid Calf: 0.2 cm; Reflux: 0 ms Ankle: 0.2 cm; Reflux: 0 ms DUPLICATED MEDIAL GREAT SAPHENOUS VEIN: Diameter: None imaged Reflux: NA DUPLICATED LATERAL GREAT SAPHENOUS VEIN: Diameter: None imaged Reflux: NA SMALL SAPHENOUS VEIN: Saphenopopliteal Junction: 0.2 cm; Reflux: 0 ms Proximal: 0.2 cm; Reflux: 0 ms Distal: Not visualized VEIN OF GIACOMINI: Size: NA Reflux: NA PERFORATORS: Location: None imaged Size: NA Reflux: NA VARICOSITIES: Location: None Imaged Size: NA Reflux: NA US/US venous duplex LE BI IMPRESSION: 1. Right great saphenous vein reflux below the knee and mid calf. 2. No left great saphenous venous insufficiency. The distal left great saphenous vein is not visualized.
== END 2023-11-10 10:43 | disposition home or self-care (01) ==
LOC: HO.US 10:42
PROVIDERS: PCP Nurse Practitioner Family; Visit Provider Surgery Vascular Surgery
DX: I83.11 Varicose veins of right lower extremity with inflammation (principal)
CPT/HCPCS: 93970

== ENCOUNTER 2023-11-14 00:05 | Emergency (ER) | payer MEDICARE, MEDICAID, SELFPAY ==
--- NOTE | ~2023-11-14 | CT_ITS ---
EXAMINATION: CT HEAD WITHOUT CONTRAST CLINICAL INFORMATION: Unwitnessed seizure, fall COMPARISON: 07/06/2018 TECHNIQUE: Contiguous axial imaging was performed from the skull base to vertex without intravenous administration of contrast. This CT examination was performed using dose optimization techniques as appropriate, variously including the following: *Automated exposure control *Adjustment of mA and/or kV according to patient size (this includes techniques or standardized protocols for targeted exams where dose is matched to indication/reason for exam; i.e. extremities or head) *Use of iterative reconstruction technique DLP: 712 mGy-cm FINDINGS: There is no evidence of acute intracranial hemorrhage or territorial infarction. No abnormal mass-effect or midline shift is seen. [place] to white matter differentiation is well preserved. No extra-axial fluid collections are identified. The ventricles are normal in size. There is mild periventricular white matter hypoattenuation consistent with chronic small vessel ischemic disease. Moderate volume loss is noted. The osseous structures and soft tissues are normal. The mastoid air cells and visualized portions of the paranasal sinuses are well-aerated. CT/CT head/brain wo IV con IMPRESSION: No acute intracranial pathology. Chronic small vessel ischemic disease and volume loss.
[2023-11-14 00:12] VITALS: BP 153/99; PULSE 84; O2SAT 97
[2023-11-14 00:20] VITALS: BP 112/70; PULSE 71; RESP 16; TEMP 36.3; O2SAT 96; BMI 25.6
--- NOTE | 2023-11-14 00:22 | ED_ITS ---
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 patient also complaining of increased anxiety and stress lately Related Data Home Medications Medication Instructions Recorded Confirmed clonazepam 0.5 mg tablet 0.5 mg PO DAILY PRN Anxiety 09/12/20 09/16/23 mirtazapine 45 mg tablet 45 mg PO BEDTIME 09/12/20 09/16/23 quetiapine 300 mg tablet,extended 300 mg PO BEDTIME 09/12/20 09/16/23 release 24 hr sertraline 100 mg tablet 200 mg PO QAM 04/28/21 09/16/23 zolpidem 10 mg tablet 10 mg PO BEDTIME 01/21/23 09/16/23 primidone 50 mg tablet 50 mg PO TID 08/11/23 09/16/23 divalproex 500 mg tablet,extended 500 mg PO TID 09/13/23 09/16/23 release 24 hr Previous Rx's Medication Instructions Recorded meclizine 12.5 mg tablet 12.5 mg PO TID PRN dizziness 20 12/18/22 days #60 tabs atorvastatin 80 mg tablet 80 mg PO DAILY 90 days #90 tabs 07/20/23 metoprolol succinate 25 mg 12.5 mg (1/2 x 25 mg) PO DAILY 90 07/20/23 tablet,extended release 24 hr days #45 tabs aspirin 81 mg tablet,delayed 81 mg PO DAILY 90 days #90 tabs 08/21/23 release levothyroxine 100 mcg tablet 100 mcg PO DAILY 90 days #90 tabs 09/05/23 dicyclomine 10 mg capsule 20 mg (2 x 10 mg) PO QID #240 caps 09/13/23 lansoprazole 30 mg capsule,delayed 30 mg PO BID #180 caps 09/13/23 release metoclopramide HCl 10 mg tablet 10 mg PO QID #120 tabs 09/13/23 albuterol sulfate 90 mcg/actuation 2 puff inhalation Q6H PRN 10/25/23 aerosol inhaler (Ventolin HFA) shortness of breath or wheezing #8.5 grams Allergies Allergy/AdvReac Type Severity Reaction Status Date / Time latex [LATEX] Allergy Intermediate RASH Verified 11/14/23 00:20 morphine [MORPHINE] Allergy Intermediate SWELLING Verified 11/14/23 00:20 alendronate sodium Allergy Unknown PER H+P Verified 11/14/23 00:20 [From FOSAMAX] levetiracetam [From KEPPRA] AdvReac Intermediate DICKENS Verified 11/14/23 00:20 phenytoin [From DILANTIN] AdvReac Intermediate CANT Verified 11/14/23 00:20 FUNCTION Review of Systems 2 Review of Systems: Yes all other systems are reviewed and are negative [facility] Past Medical History Medical History Hypoglycemia Tremor Cerebral microvascular disease Hx of hiatal hernia Tubular adenoma of colon On beta matty at home Nicotine dependence, unspecified, uncomplicated Lumbosacral pain Lumbar stenosis Lumbar radiculitis Multiple pulmonary nodules COPD (chronic obstructive pulmonary disease) Osteoporosis Hypothyroid Depression Hyperlipidemia Hypertension Myocardial infarct CAD (coronary artery disease) Intracranial arachnoid cyst Cerebral atrophy Seizure Surgical History Hx of local excision of skin lesion History of foot surgery (~2013) History of tubal ligation History of heart artery stent (~2004) History of colonoscopy (~2018) History of appendectomy S/P dilatation of esophageal stricture (~2020) History of [place] fundoplication (~2019) History of esophagogastroduodenoscopy (EGD) (~2020) Family History Family History Father Blood clots in brain Diabetes Polio Mother Breast cancer Hiatal hernia Sister Cancer Brother Myocardial infarction Family/Other Throat cancer Stomach cancer Paternal Grandmother Cancer Social History Social History Household Members: Other Housing: Apartment Alcohol intake: current Alcohol intake frequency: does not drink Patient Tobacco Use Status: Current everyday Tobacco user Tobacco use type: Cigarette Cigarette Packs Per Day: 0.5 Cigarettes Per Day: 10.0 Years Smoked: 42 e-Cigarette/Vaping Use: Never Used Second Hand Smoke Exposure: No Advance Directives: No Advance Directives Information Provided: No Patient : No Current occupational status: disabled Cognitive needs: No Hearing needs: No Vision needs: No Physical Exam 2 Vital Signs: Vital Signs: Last Vital Signs Temp 97.3 F 11/14/23 00:43 Pulse 82 11/14/23 00:43 Resp 16 11/14/23 00:43 BP 112/70 11/14/23 00:43 Pulse Ox 94 11/14/23 00:43 O2 Del Method Room Air 11/14/23 00:43 BMI result Body Mass Index 25.6 Appearance: Alert. Oriented X3. No acute distress. Eyes: PERRLA, No Nystagmus ENT: Pharynx normal. Oral Mucosa moist edentulous no tongue bite Neck: Normal inspection. Neck supple. no midline tenderness CVS: Normal heart rate and rhythm. Pulses normal. Respiratory: No respiratory distress. Equal air entry bilateral, no wheezing/rales/rhonchi Abdomen: Soft and nontender. Bowel sounds are present, no mass palpable, Skin: Skin warm and dry. Normal skin color. Normal skin turgor. Extremities: No lower extremity edema. No calf tenderness Neuro: Oriented X 3. No motor deficit. No sensory deficit.No cerebellar signs , cranial nerves II-XII intact Appearance: Alert. Oriented X3. No acute distress. Medications Administered Discontinued Medications Generic Name Dose Route Start Last Admin Trade Name Freq PRN Reason Stop Dose Admin Divalproex Sodium 1,000 mg 11/14/23 01:02 11/14/23 01:24 Divalproex Sodium 500 Mg Tablet. PO 11/14/23 01:03 1,000 mg ONCE ONE Administration Lorazepam 2 mg 11/14/23 01:02 11/14/23 01:24 Lorazepam 1 Mg Tablet PO 11/14/23 01:03 2 mg ONCE ONE Administration Medical Decision Making Medical Decision Making [facility] Narrative: Patient with History of seizures had a breakthrough seizure had therapeutic Depakote level does have increased stress possible as a stress-induced no seizure activity in the ER patient advised to continue her Depakote as said and take Klonopin for increased stress/anxiety Differential Diagnosis Differential Diagnoses: The differential diagnosis associated with the presentation includes Epilepsy/ nonepileptic seizures/metabolic Lab Data MDM Lab Attestation statement: I reviewed the patient's lab results. 11/14/23 00:46 11/14/23 00:46 Labs: Lab Results 11/14/23 Range/Units 00:46 WBC 6.8 (4.8-10.8) X10*3/uL RBC 4.17 L (4.20-5.50) X10*6/uL Hgb 14.0 (12.0-16.0) g/dl Hct 39.5 (37.0-47.0) % MCV 94.7 (80.0-98.0) fL MCH 33.6 H (27.0-33.0) pg MCHC 35.4 H (31.0-35.0) g/dl RDW 13.4 (11.0-16.0) % Plt Count 168 D (160-400) X10*3/uL MPV 10.4 (9.4-12.3) fL Immature Gran % (Auto) 0.3 (0.0-0.4) % Neut % (Auto) 55.3 (45-73) % Lymph % (Auto) 33.5 (20-40) % [place] % (Auto) 9.0 (2-11) % Eos % (Auto) 1.3 (0-4) % Baso % (Auto) 0.6 (0-2) % Lymph # (Auto) 2.3 (1.2-4.9) X10*3/uL [place] # (Auto) 0.6 (0.1-1.2) X10*3/uL Eos # (Auto) 0.1 (0.0-0.4) X10*3/uL Baso # (Auto) 0.0 (0.0-0.2) X10*3/uL Abs Immat Gran (auto) 0.02 (0.00-0.03) X10*3/uL Absolute Neuts (auto) 3.8 (2.0-8.3) x10*3/uL Absolute Nucleated RBC 0.000 (0.0-0.012) X10*3/uL Nucleated RBC % (auto) 0.0 (0.0-0.2) /100WBC Valproic Acid 79.4 (50.0-100.0) mcg/mL Discharge Plan Discharge Clinical Impression: Seizure Patient Disposition: Home, Self-Care Instructions: Nonepileptic Seizures (ED), Recurrent Seizures in Adults (ED) Additional Instructions: Likely you had a seizure/stress-induced? Continue taking Depakote as prescribed doses and take Klonopin as advised Prescriptions: No Action meclizine 12.5 mg tablet 12.5 mg PO TID PRN (Reason: dizziness) 20 Days Qty: 60 0RF metoprolol succinate 25 mg tablet extended release 24 hr 12.5 mg PO DAILY 90 Days Qty: 45 1RF atorvastatin 80 mg tablet 80 mg PO DAILY 90 Days Qty: 90 1RF aspirin 81 mg tablet,delayed release (DR/EC) 81 mg PO DAILY 90 Days Qty: 90 1RF levothyroxine 100 mcg tablet 100 mcg PO DAILY 90 Days Qty: 90 0RF albuterol sulfate [Ventolin HFA] 90 mcg/actuation HFA aerosol inhaler 2 puff inhalation Q6H PRN (Reason: shortness of breath or wheezing) Qty: 8.5 2RF primidone 50 mg tablet 50 mg PO TID quetiapine 300 mg tablet extended release 24 hr 300 mg PO BEDTIME mirtazapine 45 mg tablet 45 mg PO BEDTIME clonazepam 0.5 mg tablet 0.5 mg PO DAILY PRN (Reason: Anxiety) sertraline 100 mg tablet 200 mg PO QAM zolpidem 10 mg tablet 10 mg PO BEDTIME divalproex 500 mg tablet extended release 24 hr 500 mg PO TID Patient Comments: Per patient she takes now 500 mg in the morning and 1000 mg at night dicyclomine 10 mg capsule 20 mg PO QID Qty: 240 6RF Rx Instructions: Pt has trouble swallowing the pill version lansoprazole 30 mg capsule,delayed release(DR/EC) 30 mg PO BID Qty: 180 2RF metoclopramide HCl 10 mg tablet 10 mg PO QID Qty: 120 6RF
[2023-11-14 00:43] VITALS: BP 112/70; PULSE 82; RESP 16; TEMP 36.3; O2SAT 94
[2023-11-14 00:56] LABS: Basophils Percent Auto 0.6 % (0-2); Eosinophils Absolute Auto 0.1 X10*3/uL (0.0-0.4); Eosinophils Percent Auto 1.3 % (0-4); Hematocrit 39.5 % (37.0-47.0); Imm Gran Abs Auto 0.02 X10*3/uL (0.00-0.03); Imm Gran Pct Auto 0.3 % (0.0-0.4); Lymphocytes Absolute Auto 2.3 X10*3/uL (1.2-4.9); Lymphocytes Percent Auto 33.5 % (20-40); Mean Corpuscular HGB Conc 35.4 g/dl (31.0-35.0); Mean Corpuscular Hemoglobin 33.6 pg (27.0-33.0); Mean Corpuscular Volume 94.7 fL (80.0-98.0); Mean Platelet Volume 10.4 fL (9.4-12.3); Monocytes Absolute Auto 0.6 X10*3/uL (0.1-1.2); Neutrophils Absolute Auto 3.8 x10*3/uL (2.0-8.3); Neutrophils Percent Auto 55.3 % (45-73); PLT CLUMP 1; Red Blood Count 4.17 X10*6/uL (4.20-5.50); Red Cell Distribution Width 13.4 % (11.0-16.0); SCAN SMEAR FLAG 1
[2023-11-14 00:58] LABS: MANUAL DIFF FLAG NO; White Blood Count 6.8 X10*3/uL (4.8-10.8)
[2023-11-14 01:04] LABS: Valproate 79.4 mcg/mL (50.0-100.0)
[2023-11-14 01:08] LABS: Platelet Count 168 X10*3/uL (160-400)
[2023-11-14] MEDS: LORazepam 1 MG TABLET 2 MG PO (01:24)
[2023-11-14] MEDS: Divalproex Sodium 500 MG TABLET.DR 1000 MG PO (01:24)
[2023-11-14 02:40] VITALS: BP 115/73; PULSE 78; RESP 20; O2SAT 92
[2023-11-14 03:33] LABS: Anion Gap 14 (12-20)
[2023-11-14 03:40] LABS: Alanine Aminotransferase 15 U/L (0-31); Albumin Level 3.3 g/dL (3.5-5.0); Alkaline Phosphatase 79 U/L (39-117); Aspartate Amino Transferase 20 U/L (5-31); Bilirubin Total 0.2 mg/dL (0.0-1.0); Blood Urea Nitrogen 7 mg/dL (9-16); Calcium 7.9 mg/dL (8.4-10.2); Carbon Dioxide 26 mmol/L (22-29); Chloride 99 mmol/L (96-108); Creatinine Clr Calc Pharmacy 67.7; Estimated Glomerular Filt Rate > 60; Glucose Random 81 mg/dL (60-115); Magnesium 1.4 mg/dL (1.6-2.6); Potassium 3.2 mmol/L (3.3-5.1); Sodium 136 mmol/L (135-145); Total Protein 5.6 g/dL (6.5-8.0)
[2023-11-14] MEDS: Magnesium Sulfate/H2O 2 GM/50 ML PIGGYBACK IV (03:55)
[2023-11-14 05:12] VITALS: BP 102/61; PULSE 86; RESP 16; TEMP 36.7; O2SAT 97
== END 2023-11-14 05:55 | disposition home or self-care (01) ==
PROVIDERS: Emergency Provider Internal Medicine
DX: R56.9 Unspecified convulsions (principal); G47.33 Obstructive sleep apnea (adult) (pediatric); F17.200 Nicotine dependence, unspecified, uncomplicated; Z79.899 Other long term (current) drug therapy
CPT/HCPCS: 36415; 70450; 80053; 80164; 83735; 85025; 96374; 99284; J3475

== ENCOUNTER 2023-12-05 10:27 | Outpatient (REF) | payer MEDICARE, MEDICAID, SELFPAY ==
[2023-12-05 10:43] LABS: MANUAL DIFF FLAG NO
[2023-12-05 11:10] LABS: Basophils Absolute Auto 0.1 X10*3/uL (0.0-0.2); Basophils Percent Auto 1.1 % (0-2); Eosinophils Absolute Auto 0.1 X10*3/uL (0.0-0.4); Eosinophils Percent Auto 2.1 % (0-4); Hematocrit 41.1 % (37.0-47.0); Imm Gran Abs Auto 0.01 X10*3/uL (0.00-0.03); Imm Gran Pct Auto 0.2 % (0.0-0.4); Lymphocytes Absolute Auto 1.6 X10*3/uL (1.2-4.9); Lymphocytes Percent Auto 36.7 % (20-40); Mean Corpuscular HGB Conc 34.1 g/dl (31.0-35.0); Mean Corpuscular Hemoglobin 32.4 pg (27.0-33.0); Mean Corpuscular Volume 95.1 fL (80.0-98.0); Mean Platelet Volume 9.8 fL (9.4-12.3); Monocytes Absolute Auto 0.5 X10*3/uL (0.1-1.2); Monocytes Percent Auto 12.2 % (2-11); Neutrophils Absolute Auto 2.1 x10*3/uL (2.0-8.3); Neutrophils Percent Auto 47.7 % (45-73); Platelet Count 258 X10*3/uL (160-400); Red Blood Count 4.32 X10*6/uL (4.20-5.50); Red Cell Distribution Width 13.4 % (11.0-16.0); White Blood Count 4.4 X10*3/uL (4.8-10.8)
[2023-12-05 11:58] LABS: Alanine Aminotransferase 16 U/L (0-31); Albumin Level 3.6 g/dL (3.5-5.0); Alkaline Phosphatase 94 U/L (39-117); Anion Gap 12 (12-20); Aspartate Amino Transferase 20 U/L (5-31); Bilirubin Total 0.2 mg/dL (0.0-1.0); Blood Urea Nitrogen 5 mg/dL (9-16); Calcium 8.7 mg/dL (8.4-10.2); Carbon Dioxide 28 mmol/L (22-29); Chloride 102 mmol/L (96-108); Cholesterol 141 mg/dL (<200); Estimated Glomerular Filt Rate > 60; Glucose Fasting 81 mg/dL (60-99); HDL Cholesterol 69 mg/dL (>40); LDL Cholesterol Calculated 64 mg/dL (<100); Sodium 138 mmol/L (135-145); Total Protein 6.4 g/dL (6.5-8.0); Triglycerides 40 mg/dL (<150)
[2023-12-05 12:16] LABS: TSH reflex Free T4 2.13 uIU/mL (0.32-4.0)
== END 2023-12-05 10:28 | disposition home or self-care (01) ==
LOC: HO.LAB 10:27
PROVIDERS: PCP Nurse Practitioner Family; Visit Provider Nurse Practitioner Family
DX: E78.5 Hyperlipidemia, unspecified (principal); R79.89 Other specified abnormal findings of blood chemistry; I10 Essential (primary) hypertension
CPT/HCPCS: 36415; 80053; 80061; 84443; 85025

== ENCOUNTER 2023-12-09 08:10 | Outpatient (REF) | payer MEDICARE, MEDICAID, SELFPAY ==
[2023-12-09 13:53] LABS: Appearance Urine Clear; Color Urine Yellow; Glucose Urine UA Negative (Negative); Leukocyte Esterase Urine Negative (Negative); Nitrite Urine Negative (Negative); PH 6.5 (5.0-9.0); Specific Gravity - Urine 1.015 (1.005-1.025); Urine Blood Negative (Negative); Urine Ketones Negative (Negative); Urine Protein Negative (Neg-Trace)
== END 2023-12-09 08:11 | disposition home or self-care (01) ==
LOC: HO.HMGCLNP 08:10
PROVIDERS: PCP Nurse Practitioner Family; Visit Provider Nurse Practitioner Family
DX: E78.5 Hyperlipidemia, unspecified (principal); I10 Essential (primary) hypertension
CPT/HCPCS: 81003

== ENCOUNTER 2023-12-27 10:27 | Outpatient (AMB) | payer MEDICARE, MEDICAID, SELFPAY ==
--- NOTE | 2023-12-27 10:30 | A.OFFVIS_ITS ---
Intake Vital Signs 12/27/23 10:33 Height 4 ft 9 in Weight 122 lb 9.232 oz BMI 26.5 BP 120/76 Blood Pressure Location Lt brachial Position Sitting Pulse 65 Intake Visit Reasons: follow up s/p EGD Intake Note: Yuli returns to in office visit today in follow up s/p EGD on 09/20/[address] Wolff. CC: Patient states she still feels the same. Reports trouble swallowing, epigastric pain, diarrhea and N/V sometimes. 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 Accompanied by: Self / Same As Patient Allergies latex [LATEX] Allergy (Intermediate, Verified 12/27/23 10:36) RASH morphine [MORPHINE] Allergy (Intermediate, Verified 12/27/23 10:36) SWELLING alendronate sodium [From FOSAMAX] Allergy (Unknown, Verified 12/27/23 10:36) PER H+P levetiracetam [From KEPPRA] Adverse Reaction (Intermediate, Verified 12/27/23 10:36) DICKENS phenytoin [From DILANTIN] Adverse Reaction (Intermediate, Verified 12/27/23 10:36) CANT FUNCTION HPI follow up s/p EGD HPI Details Assessment & Plan (1) Diarrhea: Code(s): R19.7 - Diarrhea, unspecified (2) GERD with esophagitis: Code(s): K21.00 - Gastro-esophageal reflux disease with esophagitis, without bleeding (3) Esophageal spasm: Code(s): K22.4 - Dyskinesia of esophagus (4) Dysphagia: Code(s): R13.10 - Dysphagia, unspecified (5) Esophageal stricture: Code(s): K22.2 - Esophageal obstruction (6) Delayed gastric emptying: Code(s): K30 - Functional dyspepsia (7) Tubular adenoma of colon: Comment: 2018 SCOPE= TA REPEAT IN 5 YEARS Code(s): D12.6 - Benign neoplasm of colon, unspecified Plan NONE OF THE STOOL STUDIES WERE OBTAINED EGD Now scheduled for 09/20 BIOPSY TODAY'S VISIT PATIENT HAS BEEN LOST TO FOLLOW-UP SINCE 01/2022 She has the EGD scheduled for 09/20. She has continued dysphagia, she was eating shredded chicken and it got stuck, she got it back up but then my esophagus was not producing saliva and I could not swallow. She could only swallow if she drank a sip of tea. She still has intermittent trouble and pain with eating, but she has some good days and some bad days. She has lost 3 lbs. She still has diarrhea. So, her thyroid meds were recently increased in response the elevated TSH. However, it could be elevated due to an infectious process as a temporary pump. She continues to have diarrhea and concerns me with the elevated CRP that there is either infection or inflammatory process going on. She really feels like she has trouble getting the stool samples because she lives in a household with multiple other people, but I ask her to get hat from the lab to make it easier to collect a samples. It is really important that we get them because I do not know how to stop her diarrhea in the safest manner until I am sure whether not there is an infectious process. This couple with the fact that she has poor p.o. intake because of the swallowing orders is concerning. She has has she has lost 3 more lb. She saw her primary care provider recently and she feels they he said she needs a colonoscopy every year. This is not true she needs them every 5 years but she is due in 2023. Were not going to add this to the EGD because we need to do that stat at this time will consider the colonoscopy at a later date. This would be a poor time for colonoscopy given her swallowing issues the fact that she has sustained diarrhea. At this point I will see her after the endoscopy. Keep 10/06 appt after scope. Medications: New dicyclomine Pt has trouble swshayo wing the pill vers ion 20 mg (2 x 10 mg) PO QID 240 caps 6R F K22.4 - Dyskinesia of esophagus, R13 .10 - Dysphagia, u nspecified Refilled lansoprazole 30 mg PO BID 180 caps 2RF K21.00 - Gastro-es ophageal reflux di sease with esophag itis, without blee ding metoclopramide HCl 10 mg PO QID 120 tabs 6RF K30 - Functional d yspepsia Discontinued dicyclomine Dis continued Reason: Doctor's Order 20 mg PO QID 30 d ays 120 tabs 0RF K22.4 - Dyskinesia of esophagus EGD 09/20/23 Findings: Larynx: Normal Esophagus:?Tortuous esophagus with increased tertiary contractions without st ricture, ring, esophagitis or Barretts - (biopsies obtained from proximal esophag us during past EGD were negative for EOE).?? GE junction at 35 cms.? Empiric balloon dilation was performed with 20 mm (60 F) CRE balloon x 60 seconds. Stomach:?Moderate gastric erythema. A few 1-2 cms chronic appearing erosions in the gastric body - biopsies Antral biopsies were obtained to check for H Pylori). Grade 2 flap valve on retroflexed examination of the cardia. Duodenum:?Normal bulb. A 7-8 mm benign appearing polyp/nodule in the lateral wall of the 3rd part of duodenum - biopsies were obtained Intervention: Biopsies and esophageal balloon dilation as noted above Impression and Post Procedure Diagnosis: Endoscopy Findings: ESOPHAGUS: Tortuous esophagus with increased tertiary contractions without stricture or ring - (biopsies obtained from proximal esophag us during past EGD were negative for EOE).?? GE junction at 35 cms.? Empiric balloon dilation was performed with 20 mm (60 F) CRE balloon x 60 seconds. STOMACH: Gastritis and chronic appearing gastric erosions DUODENUM: Benign appearing nodule in the descending duodenum Plan: Consider further evaluation with high resolution manometry to determine etiology for dysphagia. Repeated esophageal dilation not likely to be helpful. Pt advised to quit smoking (pt stated she is smokes 1/2 pack per day and has requested a prescription for Chantix from her PC BIOPSY Received: 09/20/23 Diagnosis A. Duodenum, nodule: Small intestinal mucosa with prominent lymphoid aggregate; otherwise within normal limits. B. Stomach, antrum, biopsy: Antral-type mucosa within normal limits; no Helicobacter organisms seen. C. Stomach, erosion, biopsy: Oxyntic mucosa within normal limits; no Helicobacter organisms seen TODAY'S VISIT She is due this year for repeat screening colonoscopy due to her history of tubular adenomas. She is agreeable to this. Unfortunately, the dilation did not improve her swallowing. This is likely due to esophageal spasm which also did not respond to dicyclomine. At this point we will stop the dicyclomine and see if a calcium channel matty provides her better relief. She was counseled be very careful about swallowing since esophageal spasm is 1 of the most difficult conditions to treat. Since the endoscopist recommended a possible esophageal manometry I will refer her to [facility] for this test to see if she has achalasia. All of this was explained to her and she is agreeable. Her COPD is well controlled she recently saw Dr. Richey and all is well there. She denies any current cardiac problems. Her seizures are well controlled. Her no prior problems with anesthesia or sedation. There are no infectious disease problems. I will see her back in 3 weeks to see how she is doing on the calcium channel matty and of course I will see her after the colonoscopy. [facility] Medical History (Updated 12/27/23 @ 10:47 by LILLIAN Lofton) Pre-op examination Screening for cervical cancer Physical exam Screening for colon cancer Pain in right leg Swelling of right lower extremity Breast cancer screening, high risk patient Edema Hypoglycemia Tremor Cerebral microvascular disease Hx of hiatal hernia Tubular adenoma of colon On beta matty at home Nicotine dependence, unspecified, uncomplicated Lumbosacral pain Lumbar stenosis Lumbar radiculitis Multiple pulmonary nodules COPD (chronic obstructive pulmonary disease) Osteoporosis Hypothyroid Depression Hyperlipidemia Hypertension Myocardial infarct CAD (coronary artery disease) Intracranial arachnoid cyst Cerebral atrophy Seizure Surgical History Hx of local excision of skin lesion History of foot surgery (~2013) History of tubal ligation History of heart artery stent (~2004) History of colonoscopy (~2018) History of appendectomy S/P dilatation of esophageal stricture (~2020) History of [place] fundoplication (~2019) History of esophagogastroduodenoscopy (EGD) (~2021) Family History Father Blood clots in brain Diabetes Polio Mother Breast cancer Hiatal hernia Sister Cancer Brother Myocardial infarction Family/Other Throat cancer Stomach cancer Paternal Grandmother Cancer Social History Household Members: Other Housing: Apartment Alcohol intake: current Alcohol intake frequency: does not drink Patient Tobacco Use Status: Current everyday Tobacco user Tobacco use type: Cigarette Cigarette Packs Per Day: 0.5 Cigarettes Per Day: 10.0 Years Smoked: 42 e-Cigarette/Vaping Use: Never Used Second Hand Smoke Exposure: No Current occupational status: disabled Cognitive needs: No Hearing needs: No Vision needs: No Review of Systems Const Denies fatigue, Denies fever(s), Denies night sweats, Denies poor appetite and Denies weight loss ENT Reports Normal hearing present, Denies dental pain, Reports dysphagia, Denies hearing loss, Denies mouth pain, Denies odynophagia, Denies throat swelling, Denies tongue swelling and Reports other (Dentition adequate) Card Reports no additional complaints Resp Reports no additional complaints GI Details: Denies abdominal pain, Denies melena, Denies bloating, Denies hematochezia, Denies constipation, Denies GI cramping, Reports dysphagia, Denies excessive flatus, Denies early satiety, Denies heartburn, Denies diarrhea, Denies nausea, Denies odynophagia, Denies vomiting and Denies hematemesis Skin/Breast Denies pruritus, Denies lesions, Denies rash and Denies jaundice Neuro Reports Normal hearing present and Denies Abnormal speech present Endo Denies fatigue Aller/Immun Denies throat swelling and Denies tongue swelling Physical Exam Vital Signs: Last Vital Signs Pulse 65 12/27/23 10:33 BP 120/76 12/27/23 10:33 BMI result Body Mass Index 26.5 Const General: cooperative, no acute distress, well developed and well groomed Nutritional Appearance: average body habitus and well nourished Orientation/consciousness: oriented to person, oriented to place and oriented to time Limitations: No language barrier HEENT Head: Yes normocephalic and Yes atraumatic Eyes General: appearance normal, both eyes and all related structures Pupils: Equal, round and reactive pupils present Neck Neck: Yes normal visual inspection and Yes no lymphadenopathy Thyroid: Thyroid normal Resp Effort & Inspection: normal respiratory effort and able to speak in complete sentences Auscultation: clear to auscultation bilaterally Cardio Rate: regular rate Rhythm: regular rhythm Heart sounds: Normal, physiologic split S2 sound present Peripheral pulses: radial pulses present and posterior tibial pulses present GI Inspection: No distended and No Abdominal panniculus present Palpation (GI): Soft to palpation, nontender, no guarding, not rigid and No hepatosplenomegaly present Percussion: Yes normal to percussion Auscultation: normal bowel sounds Rectal Exam - Female: deferred Skin General skin exam: no rashes or lesions noted, turgor normal, skin not dry, no jaundice, No spider nevi and no striae Rashes: no rashes Nails: normal Neuro General: oriented to person, oriented to place and oriented to time Cranial nerves: Yes Equal, round and reactive pupils present and Yes Normal hearing present Speech: No Abnormal speech present Extrem General: Yes normal to inspection, No clubbing, No cyanosis and No edema Psych Appearance: grossly normal and well kempt Mental Status: mental status grossly normal Speech and movement: Normal speech and movement present Affect: normal affect Attitude: cooperative Thought process: Normal thought process present and not confabulating Thought content: Normal thought content present Insight: Fair insight present (Psych) Judgement: Fair judgement present (Psych) Results Reviewed Results Reviewed: EGD 09/20/23 Findings: Larynx: Normal Esophagus:?Tortuous esophagus with increased tertiary contractions without stricture, ring, esophagitis or Barretts - (biopsies obtained from proximal esophagus during past EGD were negative for EOE).?? GE junction at 35 cms.? Empiric balloon dilation was performed with 20 mm (60 F) CRE balloon x 60 seconds. Stomach:?Moderate gastric erythema. A few 1-2 cms chronic appearing erosions in the gastric body - biopsies Antral biopsies were obtained to check for H Pylori). Grade 2 flap valve on retroflexed examination of the cardia. Duodenum:?Normal bulb. A 7-8 mm benign appearing polyp/nodule in the lateral wall of the 3rd part of duodenum - biopsies were obtained Intervention: Biopsies and esophageal balloon dilation as noted above Impression and Post Procedure Diagnosis: Endoscopy Findings: ESOPHAGUS: Tortuous esophagus with increased tertiary contractions without stricture or ring - (biopsies obtained from proximal esophagus during past EGD were negative for EOE).?? GE junction at 35 cms.? Empiric balloon dilation was performed with 20 mm (60 F) CRE balloon x 60 seconds. STOMACH: Gastritis and chronic appearing gastric erosions DUODENUM: Benign appearing nodule in the descending duodenum Plan: Consider further evaluation with high resolution manometry to determine etiology for dysphagia. Repeated esophageal dilation not likely to be helpful. Pt advised to quit smoking (pt stated she is smokes 1/2 pack per day and has requested a prescription for Chantix from her PC BIOPSY Received: 09/20/23 Diagnosis A. Duodenum, nodule: Small intestinal mucosa with prominent lymphoid aggregate; otherwise within normal limits. B. Stomach, antrum, biopsy: Antral-type mucosa within normal limits; no Helicobacter organisms seen. C. Stomach, erosion, biopsy: Oxyntic mucosa within normal limits; no Helicobacter organisms seen Laboratory Tests 12/05/23 10:42 WBC 4.4 L Hgb 14.0 Hct 41.1 Plt Count 258 D Estimated GFR > 60 Total Bilirubin 0.2 AST 20 ALT 16 Alkaline Phosphatase 94 TSH 2.13 Assessment & Plan Assessment & Plan (1) Delayed gastric emptying: Code(s): K30 - Functional dyspepsia (2) Esophageal spasm: Code(s): K22.4 - Dyskinesia of esophagus (3) GERD with esophagitis: Code(s): K21.00 - Gastro-esophageal reflux disease with esophagitis, without bleeding (4) Tubular adenoma of colon: Comment: 2019 SCOPE= TA REPEAT IN 5 YEARS Code(s): D12.6 - Benign neoplasm of colon, unspecified (5) Dysphagia: Code(s): R13.10 - Dysphagia, unspecified (6) Erosive gastritis: Code(s): K29.60 - Other gastritis without bleeding (7) Pre-op examination: Code(s): Z01.818 - Encounter for other preprocedural examination (8) Diarrhea: Code(s): R19.7 - Diarrhea, unspecified Plan She is due this year for repeat screening colonoscopy due to her history of tubular adenomas. She is agreeable to this. Unfortunately, the dilation did not improve her swallowing. This is likely due to esophageal spasm which also did not respond to dicyclomine. At this point we will stop the dicyclomine and see if a calcium channel matty provides her better relief. She was counseled be very careful about swallowing since esophageal spasm is 1 of the most difficult conditions to treat. Since the endoscopist recommended a possible esophageal manometry I will refer her to [facility] for this test to see if she has achalasia. All of this was explained to her and she is agreeable. Her COPD is well controlled she recently saw Dr. Richey and all is well there. She denies any current cardiac problems. Her seizures are well controlled. Her no prior problems with anesthesia or sedation. There are no infectious disease problems. I will see her back in 3 weeks to see how she is doing on the calcium channel amtty and of course I will see her after the colonoscopy Orders: Orders Colonoscopy - GI Use Only Today D12.6 - Benign neoplasm of colon, unspecified, Z01.818 - Encounter for other preprocedural examination Referrals Gastroenterology Referral R13.10 - Dysphagia, unspecified Medications: New diltiazem HCl 120 mg PO DAILY 30 caps 3RF K22.4 - Dyskinesia of esophagus peg 3350-electrolytes 236-22.74-6.74 -5.86 gram (Golytely) until fecal effluent is clear; do not exceed a total volume of 2,000 mL 240 mL PO Q10M 1 day 4,000 mL 0RF Z12.11 - Encounter for screening for malignant neoplasm of colon bisacodyl (Dulcolax (bisacodyl)) 10 mg (2 x 5 mg) PO BEDTIME 2 days 4 tabs 0RF loperamide 2 mg PO Q6H PRN 120 caps 3RF loose stool R19.7 - Diarrhea, unspecified Refilled lansoprazole 30 mg PO BID 180 caps 2RF K21.00 - Gastro-esophageal reflux disease with esophagitis, without bleeding metoclopramide HCl 10 mg PO QID 120 tabs 6RF K30 - Functional dyspepsia Coding Level of Care Code Est Pt Level 4 (52068) Diagnoses Delayed gastric emptying K30 Esophageal spasm K22.4 GERD with esophagitis K21.00 Tubular adenoma of colon D12.6 Dysphagia R13.10 Erosive gastritis K29.60 Pre-op examination Z01.818 Diarrhea R19.7
[2023-12-27 10:33] VITALS: BP 120/76; PULSE 65; BMI 26.5
== END 2023-12-27 11:38 | disposition home or self-care (01) ==
PROVIDERS: Visit Provider Nurse Practitioner
DX: K30 Functional dyspepsia (principal); K22.4 Dyskinesia of esophagus; K21.00 Gastro-esophageal reflux disease with esophagitis, without bleeding; D12.6 Benign neoplasm of colon, unspecified; R13.10 Dysphagia, unspecified; K29.60 Other gastritis without bleeding; Z01.818 Encounter for other preprocedural examination; R19.7 Diarrhea, unspecified
CPT/HCPCS: 99214

== ENCOUNTER → 2023-12-27 10:27 | Outpatient (BNVA) | payer MEDICARE, MEDICAID, SELFPAY | PROVIDERS: Visit Provider Nurse Practitioner | DX: Z01.818 Encounter for other preprocedural examination (principal); D12.6 Benign neoplasm of colon, unspecified; R13.10 Dysphagia, unspecified; K30 Functional dyspepsia; K22.4 Dyskinesia of esophagus; K21.00 Gastro-esophageal reflux disease with esophagitis, without bleeding; K29.60 Other gastritis without bleeding; R19.7 Diarrhea, unspecified | CPT/HCPCS: 99212 ==

== ENCOUNTER 2023-12-29 09:53 | Outpatient (AMB) | payer MEDICARE, MEDICAID, SELFPAY ==
[2023-12-29 09:58] VITALS: BMI 26.4
--- NOTE | 2023-12-29 09:58 | MHC.OFFVIS ---
Intake Vital Signs 12/29/23 09:58 Height 4 ft 9 in Weight 122 lb BMI 26.4 Intake Visit Reasons: follow up U/S Intake Note: follow up US 11/10/23, pt states she right LE swelling and pain. States it is mostly in her calf and foot. Does have discoloration in her ankle and foot. Also gets numbness and tingling Accompanied by: Self / Same As Patient Allergies latex [LATEX] Allergy (Intermediate, Verified 12/29/23 10:00) RASH morphine [MORPHINE] Allergy (Intermediate, Verified 12/29/23 10:00) SWELLING alendronate sodium [From FOSAMAX] Allergy (Unknown, Verified 12/29/23 10:00) PER H+P levetiracetam [From KEPPRA] Adverse Reaction (Intermediate, Verified 12/29/23 10:00) DICKENS phenytoin [From DILANTIN] Adverse Reaction (Intermediate, Verified 12/29/23 10:00) CANT FUNCTION HPI follow up U/S HPI Details Very pleasant 58-year-old female presents for follow-up regarding venous insufficiency. She does continue to have significantly swollen lower extremities. They continue to be a source of pain and discomfort for her. She now presents for follow-up with venous insufficiency testing. In addition she does recall a history of skin cancer in the right leg. This may be contributing to lymphedema of that extremity [facility] Medical History Pre-op examination Screening for cervical cancer Physical exam Screening for colon cancer Pain in right leg Swelling of right lower extremity Breast cancer screening, high risk patient Edema Hypoglycemia Tremor Cerebral microvascular disease Hx of hiatal hernia Tubular adenoma of colon On beta matty at home Nicotine dependence, unspecified, uncomplicated Lumbosacral pain Lumbar stenosis Lumbar radiculitis Multiple pulmonary nodules COPD (chronic obstructive pulmonary disease) Osteoporosis Hypothyroid Depression Hyperlipidemia Hypertension Myocardial infarct CAD (coronary artery disease) Intracranial arachnoid cyst Cerebral atrophy Seizure Surgical History Hx of local excision of skin lesion History of foot surgery (~2013) History of tubal ligation History of heart artery stent (~2004) History of colonoscopy (~2018) History of appendectomy S/P dilatation of esophageal stricture (~2020) History of [place] fundoplication (~2019) History of esophagogastroduodenoscopy (EGD) (~2020) Family History Father Blood clots in brain Diabetes Polio Mother Breast cancer Hiatal hernia Sister Cancer Brother Myocardial infarction Family/Other Throat cancer Stomach cancer Paternal Grandmother Cancer Social History Household Members: Other Housing: Apartment Alcohol intake: current Alcohol intake frequency: does not drink Patient Tobacco Use Status: Current everyday Tobacco user Tobacco use type: Cigarette Cigarette Packs Per Day: 0.5 Cigarettes Per Day: 10.0 Years Smoked: 42 e-Cigarette/Vaping Use: Never Used Second Hand Smoke Exposure: No Current occupational status: disabled Cognitive needs: No Hearing needs: No Vision needs: No Review of Systems Const All systems reviewed & are unremarkable except as noted in HPI and below Reports no additional complaints ENT Reports Normal hearing present Card Denies chest pain, Denies chest pain at rest, Denies chest pain with activity and Denies pedal edema Resp Denies cough GI Denies abdominal pain Musc Denies abnormal gait, Denies muscle cramps and Denies radiating pain into limb Skin/Breast Denies skin ulcer and Denies wounds Neuro Reports Normal hearing present and Denies abnormal gait Psych Reports no additional complaints Physical Exam Vital Signs: BMI result Body Mass Index 26.4 Const General: cooperative, healthy appearing and comfortable Orientation/consciousness: oriented to person, oriented to place and oriented to time HEENT Head: Yes normal to inspection Neck Neck: Yes normal visual inspection Carotids: no bruits Chest Chest palpation & inspection: normal inspection of the chest Resp Effort & Inspection: normal respiratory effort and able to speak in complete sentences Auscultation: clear to auscultation bilaterally, no crackles, no rales, no rhonchi and no wheezes Cardio Rate: regular rate Rhythm: regular rhythm Heart sounds: S1 normal heart sound present and S2 normal heart sound present Bruits: no carotid bruits Peripheral pulses: Peripheral pulses 2+ throughout GI Inspection: Yes normal to inspection Skin Wounds: no wounds Hair: normal Neuro General: oriented to person, oriented to place and oriented to time Cranial nerves: Yes CN's II-XII intact bilaterally and Yes Normal hearing present Cognition (Neuro): normal cognition Motor exam (neuro): 5/5 motor strength present throughout Extrem Other: venous exam: +2 edema Right in cm: Thigh 49 Knee 42.5 Calf 37.5 Ankle 26.5 Left in cm: Thigh 45 Knee 40 Calf 35 Ankle 22 Hip/abdomen 95.5 General: No clubbing, No cyanosis and Yes edema Psych Appearance: grossly normal Mental Status: mental status grossly normal Speech and movement: Normal speech and movement present Results Reviewed Results Reviewed: Brief summary of venous insufficiency testing is as follows: right great saphenous vein: negative right small saphenous vein: negative right accessory vein: none present left great saphenous vein: negative left small saphenous vein: negative left accessory vein: none present Please note there is no evidence of any venous aneurysms or significant tortuosity Assessment & Plan Assessment & Plan (1) Lymphedema: Code(s): I89.0 - Lymphedema, not elsewhere classified Plan: In short the patient has late on sent lymphedema. The patient has been on conservative treatment for at least 3 months with minimal relief. Patient has tried 30 mm of mercury compression garments, elevation, exercise healthy diet and doing manual says self MLD to the best of their ability for over 4 weeks but with no significant relief. She has been compliant with the program but has provided minimal relief. In addition on physical we are noticing hyperpigmentation, lymphorrhea, and hyperplasia. It appears that she has stage 2 lymphedema. Patient has completed multiple forms of conservative therapy yet significant symptoms remain. Patient requires the use of a pneumatic compression device which we will assist in trying to have the patient obtain them. A pneumatic compression device will help reduce swelling and other lymphedema comorbidities. Thank you for allowing us to assist in this patient's care. (2) Varicose veins of right lower extremity with inflammation: Code(s): I83.11 - Varicose veins of right lower extremity with inflammation Plan: Patient is negative for any significant venous insufficiency. Will treat her for lymphedema. Coding Level of Care Code Est Pt Level 4 (92673) Diagnoses Lymphedema I89.0 Varicose veins of right lower extremity with inflammation I83.11
== END 2023-12-29 10:29 | disposition home or self-care (01) ==
PROVIDERS: Visit Provider Surgery Vascular Surgery
DX: I89.0 Lymphedema, not elsewhere classified (principal); I83.11 Varicose veins of right lower extremity with inflammation
CPT/HCPCS: 99214

== ENCOUNTER → 2023-12-29 09:53 | Outpatient (BNVA) | payer MEDICARE, MEDICAID, SELFPAY | PROVIDERS: Visit Provider Surgery Vascular Surgery | DX: I89.0 Lymphedema, not elsewhere classified (principal); I83.11 Varicose veins of right lower extremity with inflammation | CPT/HCPCS: 99212 ==

== ENCOUNTER 2024-02-14 09:19 | Outpatient (REF) | payer MEDICARE, MEDICAID, SELFPAY ==
[2024-02-14 09:40] LABS: MANUAL DIFF FLAG NO
[2024-02-14 10:28] LABS: Basophils Percent Auto 0.6 % (0-2); Eosinophils Absolute Auto 0.1 X10*3/uL (0.0-0.4); Eosinophils Percent Auto 1.9 % (0-4); Hematocrit 41.8 % (37.0-47.0); Hemoglobin 13.8 g/dl (12.0-16.0); Imm Gran Abs Auto 0.02 X10*3/uL (0.00-0.03); Imm Gran Pct Auto 0.4 % (0.0-0.4); Lymphocytes Absolute Auto 2.1 X10*3/uL (1.2-4.9); Lymphocytes Percent Auto 40.3 % (20-40); Mean Corpuscular Hemoglobin 32.5 pg (27.0-33.0); Mean Corpuscular Volume 98.6 fL (80.0-98.0); Mean Platelet Volume 10.3 fL (9.4-12.3); Monocytes Absolute Auto 0.5 X10*3/uL (0.1-1.2); Monocytes Percent Auto 9.1 % (2-11); Neutrophils Absolute Auto 2.5 x10*3/uL (2.0-8.3); Neutrophils Percent Auto 47.7 % (45-73); Platelet Count 244 X10*3/uL (160-400); Red Blood Count 4.24 X10*6/uL (4.20-5.50); Red Cell Distribution Width 13.9 % (11.0-16.0); White Blood Count 5.3 X10*3/uL (4.8-10.8)
[2024-02-14 10:57] LABS: Alanine Aminotransferase 22 U/L (0-31); Albumin Level 3.5 g/dL (3.5-5.0); Alkaline Phosphatase 90 U/L (39-117); Anion Gap 13 (12-20); Aspartate Amino Transferase 25 U/L (5-31); Bilirubin Total 0.2 mg/dL (0.0-1.0); Blood Urea Nitrogen 20 mg/dL (9-16); Calcium 9.4 mg/dL (8.4-10.2); Carbon Dioxide 29 mmol/L (22-29); Chloride 107 mmol/L (96-108); Estimated Glomerular Filt Rate > 60; Glucose Random 61 mg/dL (60-115); Magnesium 1.6 mg/dL (1.6-2.6); Sodium 145 mmol/L (135-145); Total Protein 6.2 g/dL (6.5-8.0)
== END 2024-02-14 09:20 | disposition home or self-care (01) ==
LOC: HO.LAB 09:19
PROVIDERS: PCP Nurse Practitioner Family; Visit Provider Nurse Practitioner Family
DX: E83.42 Hypomagnesemia (principal); D72.819 Decreased white blood cell count, unspecified
CPT/HCPCS: 36415; 80053; 83735; 85025

== ENCOUNTER 2024-02-22 11:36 | Outpatient (AMB) | payer MEDICARE, MEDICAID, SELFPAY ==
[2024-02-22 11:39] VITALS: BP 117/78; PULSE 63; BMI 25.4
--- NOTE | 2024-02-22 11:39 | MHC.OFFVIS ---
Vital Signs 02/22/24 11:39 Height 4 ft 9 in Weight 117 lb 4.575 oz BMI 25.4 BP 117/78 Blood Pressure Location Lt brachial Position Sitting Pulse 63 Intake Visit Reasons: r/s from 01/29 Intake Note: Yuli returns to in office visit today in follow up abdominal pain. CC: Patient continues to c/o trouble swallowing, epigastric pain, abdominal pain, and N/V sometimes. Partnership Development Manager Required: No Accompanied by: Self / Same As Patient Allergies latex [LATEX] Allergy (Intermediate, Verified 02/24/24 14:01) RASH morphine [MORPHINE] Allergy (Intermediate, Verified 02/24/24 14:01) SWELLING alendronate sodium [From FOSAMAX] Allergy (Unknown, Verified 02/24/24 14:01) PER H+P levetiracetam [From KEPPRA] Adverse Reaction (Intermediate, Verified 02/24/24 14:01) DICKENS phenytoin [From DILANTIN] Adverse Reaction (Intermediate, Verified 02/24/24 14:01) CANT FUNCTION HPI HPI r/s from 01/29: Details: Assessment & Plan (1) Delayed gastric emptying: Code(s): K30 - Functional dyspepsia (2) Esophageal spasm: Code(s): K22.4 - Dyskinesia of esophagus (3) GERD with esophagitis: Code(s): K21.00 - Gastro-esophageal reflux disease with esophagitis, without bleeding (4) Tubular adenoma of colon: Comment: 2019 SCOPE= TA REPEAT IN 5 YEARS Code(s): D12.6 - Benign neoplasm of colon, unspecified (5) Dysphagia: Code(s): R13.10 - Dysphagia, unspecified (6) Erosive gastritis: Code(s): K29.60 - Other gastritis without bleeding (7) Pre-op examination: Code(s): Z01.818 - Encounter for other preprocedural examination (8) Diarrhea: Code(s): R19.7 - Diarrhea, unspecified Plan She is due this year for repeat screening colonoscopy due to her history of tubular adenomas. She is agreeable to this. Unfortunately, the dilation did not improve her swallowing. This is likely due to esophageal spasm which also did not respond to dicyclomine. At this point we will stop the dicyclomine and see if a calcium channel matty provides her better relief. She was counseled be very careful about swallowing since esophageal spasm is 1 of the most difficult conditions to treat. Since the endoscopist recommended a possible esophageal manometry I will refer her to [facility] for this test to see if she has achalasia. All of this was explained to her and she is agreeable. Her COPD is well controlled she recently saw Dr. Richey and all is well there. She denies any current cardiac problems. Her seizures are well controlled. Her no prior problems with anesthesia or sedation. There are no infectious disease problems. I will see her back in 3 weeks to see how she is doing on the calcium channel matty and of course I will see her after the colonoscopy Orders: Orders Colonoscopy - GI Use Only Today D12.6 - Benign neoplasm of colon, unspecified, Z01.818 - Encounter for other preprocedural examination Referrals Gastroenterology Referral R13.10 - Dysphagia, unspecified Medications: New diltiazem HCl 120 mg PO DAILY 30 caps 3RF K22.4 - Dyskinesia of esophagus peg 3350-electrolytes 236-22.74-6.74 -5.86 gram (Golytely) until fecal effluent is clear; do not exceed a total volume of 2,000 mL 240 mL PO Q10M 1 day 4,000 mL 0RF Z12.11 - Encounter for screening for malignant neoplasm of colon bisacodyl (Dulcolax (bisacodyl)) 10 mg (2 x 5 mg) PO BEDTIME 2 days 4 tabs 0RF loperamide 2 mg PO Q6H PRN 120 caps 3RF loose stool R19.7 - Diarrhea, unspecified Refilled lansoprazole 30 mg PO BID 180 caps 2RF K21.00 - Gastro-esophageal reflux disease with esophagitis, without bleeding metoclopramide HCl 10 mg PO QID 120 tabs 6RF K30 - Functional dyspepsia COLONOSCOPY scheduled for 04/17 BIOPSY TODAYS VISIT No improvement in swallowing with cardizem so stop. She is now having diarrhea and bloating. Continued early satiety and nausea despite reglan. Adding liquid carafate and getting US of abd. She is s/p nissin fund with Dr. Gomez - I think she will need to see him as we are not having success with dilation and medical mgmt. She has upcoming colonoscopy [facility] Medical History Pre-op examination Screening for cervical cancer Physical exam Screening for colon cancer Pain in right leg Swelling of right lower extremity Breast cancer screening, high risk patient Edema Hypoglycemia Tremor Cerebral microvascular disease Hx of hiatal hernia Tubular adenoma of colon On beta matty at home Nicotine dependence, unspecified, uncomplicated Lumbosacral pain Lumbar stenosis Lumbar radiculitis Multiple pulmonary nodules COPD (chronic obstructive pulmonary disease) Osteoporosis Hypothyroid Depression Hyperlipidemia Hypertension Myocardial infarct CAD (coronary artery disease) Intracranial arachnoid cyst Cerebral atrophy Seizure Surgical History Hx of local excision of skin lesion History of foot surgery (~2013) History of tubal ligation History of heart artery stent (~2004) History of colonoscopy (~2018) History of appendectomy S/P dilatation of esophageal stricture (~2020) History of [place] fundoplication (~2019) History of esophagogastroduodenoscopy (EGD) (~2020) Family History Father Blood clots in brain Diabetes Polio Mother Breast cancer Hiatal hernia Sister Cancer Brother Myocardial infarction Family/Other Throat cancer Stomach cancer Paternal Grandmother Cancer Social History Household Members: Other Housing: Apartment Alcohol intake: current Alcohol intake frequency: does not drink Patient Tobacco Use Status: Current everyday Tobacco user Tobacco use type: Cigarette Cigarette Packs Per Day: 0.5 Cigarettes Per Day: 10.0 Years Smoked: 42 e-Cigarette/Vaping Use: Never Used Second Hand Smoke Exposure: No Current occupational status: disabled Cognitive needs: No Hearing needs: No Vision needs: No Review of Systems Const Denies fatigue, Denies fever(s), Denies night sweats, Denies poor appetite and Denies weight loss ENT Reports Normal hearing present, Denies dental pain, Reports dysphagia, Denies hearing loss, Denies mouth pain, Denies odynophagia, Denies throat swelling, Denies tongue swelling and Reports other (Dentition adequate) Card Reports no additional complaints Resp Reports no additional complaints GI Details: Reports abdominal pain, Denies melena, Denies bloating, Denies hematochezia, Denies constipation, Denies GI cramping, Reports dysphagia, Denies excessive flatus, Denies early satiety, Reports heartburn, Denies diarrhea, Reports loose stools, Reports nausea, Denies odynophagia, Denies vomiting and Denies hematemesis Skin/Breast Denies pruritus, Denies lesions, Denies rash and Denies jaundice Neuro Reports Normal hearing present and Denies Abnormal speech present Endo Denies fatigue Aller/Immun Denies throat swelling and Denies tongue swelling Physical Exam Vital Signs: Last Vital Signs Pulse 63 02/22/24 11:39 BP 117/78 02/22/24 11:39 BMI result Body Mass Index 25.4 Const General: cooperative, no acute distress, well developed and well groomed Nutritional Appearance: average body habitus and well nourished Orientation/consciousness: oriented to person, oriented to place and oriented to time Limitations: No language barrier HEENT Head: Yes normocephalic and Yes atraumatic Eyes General: appearance normal, both eyes and all related structures Pupils: Equal, round and reactive pupils present Neck Neck: Yes normal visual inspection and Yes no lymphadenopathy Thyroid: Thyroid normal Resp Effort & Inspection: normal respiratory effort and able to speak in complete sentences Auscultation: clear to auscultation bilaterally Cardio Rate: regular rate Rhythm: regular rhythm Heart sounds: Normal, physiologic split S2 sound present Peripheral pulses: radial pulses present and posterior tibial pulses present GI Inspection: No distended and No Abdominal panniculus present Palpation (GI): Soft to palpation, nontender, no guarding, not rigid and No hepatosplenomegaly present Percussion: Yes normal to percussion Auscultation: normal bowel sounds Rectal Exam - Female: deferred Skin General skin exam: no rashes or lesions noted, turgor normal, skin not dry, no jaundice, No spider nevi and no striae Rashes: no rashes Nails: normal Neuro General: oriented to person, oriented to place and oriented to time Cranial nerves: Yes Equal, round and reactive pupils present and Yes Normal hearing present Speech: No Abnormal speech present Extrem General: Yes normal to inspection, No clubbing, No cyanosis and No edema Psych Appearance: grossly normal and well kempt Mental Status: mental status grossly normal Speech and movement: Normal speech and movement present Affect: normal affect Attitude: cooperative Thought process: Normal thought process present and not confabulating Thought content: Normal thought content present Insight: Limited insight present (Psych) Judgement: Limited judgement present (Psych) Assessment & Plan Assessment & Plan (1) Esophageal spasm: Code(s): K22.4 - Dyskinesia of esophagus Category: Medical (2) GERD with esophagitis: Code(s): K21.00 - Gastro-esophageal reflux disease with esophagitis, without bleeding Category: Medical (3) Delayed gastric emptying: Code(s): K30 - Functional dyspepsia Category: Medical (4) Erosive gastritis: Code(s): K29.60 - Other gastritis without bleeding Category: Medical (5) Dysphagia: Code(s): R13.10 - Dysphagia, unspecified Category: Medical (6) Erosive esophagitis: Code(s): K22.10 - Ulcer of esophagus without bleeding Category: Medical (7) Abdominal pain: Code(s): R10.9 - Unspecified abdominal pain Category: Medical Plan No improvement in swallowing with cardizem so stop. She is now having diarrhea and bloating. Continued early satiety and nausea despite reglan. Adding liquid carafate and getting US of abd. She is s/p nissin fund with Dr. Gomez - I think she will need to see him as we are not having success with dilation and medical mgmt. She has upcoming colonoscopy, she continues on her lansoprazole twice a day, also utilizes loperamide along with her Reglan. COLONOSCOPY scheduled for 04/17 BIOPSY Orders: Orders US abdomen complete 02/22/24 R10.9 - Unspecified abdominal pain Medications: New sucralfate (Carafate) 20 mL PO QNOON 1,000 mL 1RF K29.60 - Other gastritis without bleeding, K22.10 - Ulcer of esophagus without bleeding Discontinued diltiazem HCl CD Discontinued Reason: Doctor's Order 120 mg PO DAILY 30 caps 3RF K22.4 - Dyskinesia of esophagus Coding Level of Care Code Est Pt Level 3 (67073) Diagnoses Esophageal spasm K22.4 GERD with esophagitis K21.00 Delayed gastric emptying K30 Erosive gastritis K29.60 Dysphagia R13.10 Erosive esophagitis K22.10 Abdominal pain R10.9
== END 2024-02-22 12:22 | disposition home or self-care (01) ==
PROVIDERS: Visit Provider Nurse Practitioner
DX: K22.4 Dyskinesia of esophagus (principal); K21.00 Gastro-esophageal reflux disease with esophagitis, without bleeding; K30 Functional dyspepsia; K29.60 Other gastritis without bleeding; R13.10 Dysphagia, unspecified; K22.10 Ulcer of esophagus without bleeding; R10.9 Unspecified abdominal pain
CPT/HCPCS: 99213

== ENCOUNTER → 2024-02-22 11:36 | Outpatient (BNVA) | payer MEDICARE, MEDICAID, SELFPAY | PROVIDERS: Visit Provider Nurse Practitioner | DX: K22.4 Dyskinesia of esophagus (principal); K21.00 Gastro-esophageal reflux disease with esophagitis, without bleeding; K30 Functional dyspepsia; K29.60 Other gastritis without bleeding; K22.10 Ulcer of esophagus without bleeding; R13.10 Dysphagia, unspecified; R10.9 Unspecified abdominal pain | CPT/HCPCS: 99212 ==

== ENCOUNTER 2024-02-24 13:25 | Emergency (ER) | payer MEDICARE, MEDICAID, SELFPAY ==
[2024-02-24] VITALS (7 sets, daily range): BP systolic 90–116; BP diastolic 46–75; PULSE 64–73; RESP 14–26; TEMP 36.4–37.4; O2SAT 89–100; BMI 26.1
--- NOTE | ~2024-02-24 | CT_ITS ---
EXAMINATION: CT HEAD WITHOUT CONTRAST CLINICAL INFORMATION: Altered mental status COMPARISON: CT 02/27/2024. Correlation MRI 05/26/2019 TECHNIQUE: Contiguous axial imaging was performed from the skull base to vertex without intravenous administration of contrast. This CT examination was performed using dose optimization techniques as appropriate, variously including the following: *Automated exposure control *Adjustment of mA and/or kV according to patient size (this includes techniques or standardized protocols for targeted exams where dose is matched to indication/reason for exam; i.e. extremities or head) *Use of iterative reconstruction technique DLP: 680 mGy-cm FINDINGS: There is no evidence of acute intracranial hemorrhage or edematous large vessel territorial infarction. No abnormal mass effect or midline shift is seen. Infante to white matter differentiation is well preserved. No abnormal extra-axial fluid collections are identified. Commensurate prominence of the ventricles and sulci is compatible with generalized parenchymal volume loss. There is mild periventricular and subcortical white matter hypoattenuation, most likely representing microangiopathic disease . Posterior fossa arachnoid cyst, unchanged from 11/14/2023, better evaluated on the previous MRI. No acute calvarial fracture.. Paranasal sinuses and mastoid air cells are well-aerated. CT/CT head/brain wo IV con IMPRESSION: No CT evidence of acute intracranial hemorrhage or edematous territorial infarction. Chronic small vessel ischemic disease and volume loss.
--- NOTE | ~2024-02-24 | XR_ITS ---
EXAMINATION: XR CHEST CLINICAL INFORMATION: Shortness of breath. Altered mental status. COMPARISON: CXR from 12/03/2021. Chest CT from 10/28/2023. TECHNIQUE: Frontal view of the chest was obtained. FINDINGS: Lungs are well expanded and bronchial addison appear to be mildly thickened in this patient with underlying emphysematous disease. A few linear opacities of atelectasis are present in the bases. There appears to be a chronically blunted appearance of the right lateral costophrenic sulcus. No overt pleural effusion. Possible 0.6 cm nodule in the right upper lobe. However, the finding in question might merely represent overlap of vessels in the area on the AP radiographic projection. Due to uncertainty, recommend PA/lateral CXR follow-up in 6-8 weeks. Cardiac silhouette has normal size and contour. There is atherosclerotic calcification of the aorta. The visualized bones are intact. XR/XR chest 1V IMPRESSION: * Chronic obstructive pulmonary disease. * Mild atelectasis at the lung bases. No radiographic evidence of pneumonia. * Possible new nodule in the right upper lobe. Since the patient has a history of cigarette smoking, recommend follow-up radiographs in the next 6 - 8 weeks to ensure that the finding in question resolves. Any persistent nodularity would warrent chest CT evaluation.
--- NOTE | 2024-02-24 13:43 | ECG_ITS ---
Test Reason : AMS Blood Pressure : / mmHG Vent. Rate : 072 BPM Atrial Rate : 072 BPM P-R Int : 120 ms QRS Dur : 076 ms QT Int : 402 ms P-R-T Axes : 076 046 019 degrees QTc Int : 440 ms Normal sinus rhythm Possible Left atrial enlargement Borderline ECG When compared to the previous EKG of No significant changes seen Referred By: Sherley Davis Electronically Signed By:SEDA VANCE MD
--- NOTE | 2024-02-24 14:05 | ED_ITS ---
HPI - Altered Mental Status General Chief Complaint: Altered Mental Status Stated Complaint: Possible infection/AMS Time Seen by Provider: 02/24/24 13:37 Source: patient and EMS Mode of arrival: EMS Limitations: no limitations History of Present Illness HPI narrative: Patient is a 58-year-old female who presents to the emergency department via EMS for evaluation. Per EMS, family found her lying on the floor next to her bed at 05:00, family placed her back into bed at this point. When attempting to awake her at 12:30 she was lethargic and not responsive. Family called EMS. She has a reported history of seizures for which she is currently prescribed Depakote. On EMS arrival they report that she smelled of malodorous urine, has a weak wet cough, was noted to be hypoxic on room air with O2 saturation of 89%. Related Data Home Medications ?Medication ?Instructions ?Recorded ?Confirmed clonazepam 0.5 mg tablet 0.5 mg PO DAILY PRN Anxiety 09/12/20 09/16/23 mirtazapine 45 mg tablet 45 mg PO BEDTIME 09/12/20 09/16/23 sertraline 100 mg tablet 200 mg PO QAM 04/28/21 09/16/23 zolpidem 10 mg tablet 10 mg PO BEDTIME 01/21/23 09/16/23 primidone 50 mg tablet 50 mg PO TID 08/11/23 09/16/23 divalproex 500 mg tablet,extended 500 mg PO TID 09/13/23 09/16/23 release 24 hr Previous Rx's ?Medication ?Instructions ?Recorded meclizine 12.5 mg tablet 12.5 mg PO TID PRN dizziness 20 12/18/22 days #60 tabs atorvastatin 80 mg tablet 80 mg PO DAILY 90 days #90 tabs 07/20/23 metoprolol succinate 25 mg 12.5 mg (1/2 x 25 mg) PO DAILY 90 07/20/23 tablet,extended release 24 hr days #45 tabs aspirin 81 mg tablet,delayed 81 mg PO DAILY 90 days #90 tabs 08/21/23 release albuterol sulfate 90 mcg/actuation 2 puff inhalation Q6H PRN 10/25/23 aerosol inhaler (Ventolin HFA) shortness of breath or wheezing #8.5 grams budesonide 90 mcg/actuation breath 1 inh inhalation Q12H #1 ea 11/23/23 activated powder inhaler (Pulmicort Flexhaler) levothyroxine 100 mcg tablet 100 mcg PO DAILY 90 days #90 tabs 12/22/23 bisacodyl 5 mg tablet,delayed 10 mg (2 x 5 mg) PO BEDTIME 2 days 12/27/23 release (Dulcolax (bisacodyl)) #4 tabs lansoprazole 30 mg capsule,delayed 30 mg PO BID #180 caps 12/27/23 release loperamide 2 mg capsule 2 mg PO Q6H PRN loose stool #120 12/27/23 caps metoclopramide HCl 10 mg tablet 10 mg PO QID #120 tabs 12/27/23 peg 3350-electrolytes 236 240 ml PO Q10M 1 day #4,000 mL 12/27/23 gram-22.74 gram-6.74 gram-5.86 gram solution (Golytely) Arnuity Ellipta 100 mcg/actuation 1 inh inhalation DAILY 30 days #30 02/16/24 powder for inhalation (fluticasone ea furoate) sucralfate 100 mg/mL oral 20 ml PO QNOON #1,000 mL 02/22/24 suspension (Carafate) Allergies Allergy/AdvReac Type Severity Reaction Status Date / Time latex [LATEX] Allergy Intermediate RASH Verified 02/24/24 14:01 morphine [MORPHINE] Allergy Intermediate SWELLING Verified 02/24/24 14:01 alendronate sodium Allergy Unknown PER H+P Verified 02/24/24 14:01 [From FOSAMAX] levetiracetam [From KEPPRA] AdvReac Intermediate DICKENS Verified 02/24/24 14:01 phenytoin [From DILANTIN] AdvReac Intermediate CANT Verified 02/24/24 14:01 FUNCTION Review of Systems 2 Review of Systems: Yes all other systems are reviewed and are negative PMFSH Past Medical History Attestation statement: The following information was validated with the patient. Source: old records reviewed Medical History Pre-op examination Screening for cervical cancer Physical exam Screening for colon cancer Pain in right leg Swelling of right lower extremity Breast cancer screening, high risk patient Edema Hypoglycemia Tremor Cerebral microvascular disease Hx of hiatal hernia Tubular adenoma of colon On beta matty at home Nicotine dependence, unspecified, uncomplicated Lumbosacral pain Lumbar stenosis Lumbar radiculitis Multiple pulmonary nodules COPD (chronic obstructive pulmonary disease) Osteoporosis Hypothyroid Depression Hyperlipidemia Hypertension Myocardial infarct CAD (coronary artery disease) Intracranial arachnoid cyst Cerebral atrophy Seizure Surgical History Hx of local excision of skin lesion History of foot surgery (~2013) History of tubal ligation History of heart artery stent (~2004) History of colonoscopy (~2018) History of appendectomy S/P dilatation of esophageal stricture (~2020) History of [place] fundoplication (~2019) History of esophagogastroduodenoscopy (EGD) (~2020) Family History Family History Father Blood clots in brain Diabetes Polio Mother Breast cancer Hiatal hernia Sister Cancer Brother Myocardial infarction Family/Other Throat cancer Stomach cancer Paternal Grandmother Cancer Social History Social History Household Members: Other Housing: Apartment Alcohol intake: current Alcohol intake frequency: does not drink Patient Tobacco Use Status: Current everyday Tobacco user Tobacco use type: Cigarette Cigarette Packs Per Day: 0.5 Cigarettes Per Day: 10.0 Years Smoked: 42 Smoked in Last 30 Days: No e-Cigarette/Vaping Use: Never Used Second Hand Smoke Exposure: No Advance Directives: No Advance Directives Information Provided: No Current occupational status: disabled Cognitive needs: No Hearing needs: No Vision needs: No Physical Exam ED Vital Signs: Vital Signs - 24 hr 02/24/24 13:58 02/24/24 14:45 02/24/24 16:22 Temperature 98.5 F 99.3 F 97.7 F Pulse Rate 67 65 68 Respiratory Rate 18 14 24 H Blood Pressure 93/46 L 108/61 99/71 Pulse Oximetry 89 L 97 97 Oxygen Delivery Method Room Air Room Air Nasal Cannula Oxygen Flow Rate 02/24/24 17:21 02/24/24 17:46 02/24/24 18:05 Temperature Pulse Rate 64 66 67 Respiratory Rate 16 16 26 H Blood Pressure 116/51 L 107/58 L 111/75 Pulse Oximetry 100 94 Oxygen Delivery Method Nasal Cannula Room Air Oxygen Flow Rate 2 BMI result Body Mass Index 26.1 Appearance: Lethargic, arousable to verbal stimuli. Oriented to person place and time, disoriented to precipitating events. ?Ill kempt, odorous Eyes: Pupils equal, round and reactive to light. ?Bilateral periorbital edema. EOMI. ENT: Pharynx normal.?? Neck: Normal inspection.? Neck supple.?? CVS: Heart sounds normal. Normal heart rate and rhythm.? Pulses normal.?? Respiratory: Acute hypoxic respiratory failure, 89% on room air, no increased work of breathing. Weak Productive cough. Lung sounds relative bilateral bases Abdomen: Soft and non-tender. Normoactive bowel sounds. No pulsatile mass.?? Skin: Skin warm and dry.? Normal skin color.? Extremities: No lower extremity edema.? No calf ttp? Neuro: Moves all extremities spontaneously. Sensation intact bilaterally. CN II- XII intact. No focal neuro deficits. Course Reevaluation(s) Reevaluation #1: Nursing staff having difficulty obtaining serum labs, IV access was obtained, flushing well and functioning but unable to obtain labs with access. Time: 14:35 Reevaluation #2: Phlebotomy was unable to successfully obtain labs. Ultrasound-guided IV access was obtained and able to obtain labs Time: 15:15 Reevaluation #3: CBC is without leukocytosis, anemia, thrombocytopenia. VBG without evidence of acidosis, CO2 retention. No lactic acidosis. Viral panel is negative. No electrolyte derangement. No JELENA. High sensitive troponin 3.2. Patient signed out to [facility] pending imaging results, and reevalutation Time: 19:07 Additional Reevaluation(s): Patient received in sign-out at change of shift pending re-evaluation, CT imaging and urinalysis. Patient's CT scan shows no evidence of acute intracranial pathology, UA is negative for infection, blood or protein. The patient is awake, alert and oriented, vital signs are stable, she is stable for discharge. Medications Administered Discontinued Medications Generic Name Dose Route Start Last Admin Trade Name Freq PRN Reason Stop Dose Admin Ceftriaxone Sodium 1 gm/ 50 mls @ 100 mls/hr 02/24/24 13:43 02/24/24 15:55 Sodium Chloride IV 02/24/24 14:12 Infused ONCE ONE Infusion Sodium Chloride 1,644 mls @ 1,644 mls/hr 02/24/24 14:06 02/24/24 17:45 Ns 30 ml/kg infuse over 1 hr (1644 ml) 02/24/24 15:05 Infused IV Infusion .Q1H STA Medical Decision Making Medical Decision Making [facility] Narrative: Patient is a 58-year-old female with past medical history of cerebral microvascular disorder, lumbar stenosis, hiatal hernia, COPD, osteoporosis, hypothyroidism, depression, hyperlipidemia, hypertension, coronary artery disease with myocardial infarction in 2 cardiac stents, seizure disorder on Depakote presenting to emergency department for evaluation, found obtunded lethargic by family as per HPI. On EMS arrival she was responsive to questioning, I would room air hypoxia, patient unaware of the events preceding visit today Sepsis alert was called on arrival due to hypoxia, hypotension, altered mental status, will cover with Rocephin 1 g IV sepsis fluid bolus was ordered. Differential Diagnosis Differential Diagnoses: The differential diagnosis associated with the presentation includes (ICH, SDH, seizure, urinary tract infection, acute hypoxic respiratory failure, COPD exacerbation, sepsis) Admission/Observation Consideration of admission/observation: Escalation of care including admission/observation considered (See narrative above in course narrative for further detail) Lab Data [facility] Lab Attestation statement: I reviewed the patient's lab results. (See course narrative for further detail) 02/24/24 15:16 02/24/24 15:16 Labs: Lab Results 02/24/24 02/24/24 02/24/24 Range/Units 14:12 15:15 15:16 WBC 6.0 (4.8-10.8) X10*3/uL RBC 4.20 (4.20-5.50) X10*6/uL Hgb 13.7 (12.0-16.0) g/dl Hct 42.0 (37.0-47.0) % MCV 100.0 H (80.0-98.0) fL MCH 32.6 (27.0-33.0) pg MCHC 32.6 (31.0-35.0) g/dl RDW 14.0 (11.0-16.0) % Plt Count 191 (160-400) X10*3/uL MPV 9.8 (9.4-12.3) fL Immature Gran % (Auto) 0.3 (0.0-0.4) % Neut % (Auto) 69.3 (45-73) % Lymph % (Auto) 21.3 (20-40) % Love % (Auto) 8.6 (2-11) % Eos % (Auto) 0.2 (0-4) % Baso % (Auto) 0.3 (0-2) % Lymph # (Auto) 1.3 (1.2-4.9) X10*3/uL Love # (Auto) 0.5 (0.1-1.2) X10*3/uL Eos # (Auto) 0.0 (0.0-0.4) X10*3/uL Baso # (Auto) 0.0 (0.0-0.2) X10*3/uL Abs Immat Gran (auto) 0.02 (0.00-0.03) X10*3/uL Absolute Neuts (auto) 4.2 (2.0-8.3) x10*3/uL Absolute Nucleated RBC 0.000 (0.0-0.012) X10*3/uL Nucleated RBC % (auto) 0.0 (0.0-0.2) /100WBC PT 10.8 L (11.1-13.3) SEC INR 0.9 (0.9-1.1) VBG pH (7.32-7.43) VBG pCO2 mmHg VBG pO2 mmHg VBG HCO3 (22-26) mmol/L VBG O2 Saturation % VBG Base Excess mmol/L Sodium 141 (135-145) mmol/L Potassium 4.2 (3.3-5.1) mmol/L Chloride 106 (96-108) mmol/L Carbon Dioxide 27 (22-29) mmol/L Anion Gap 12 (12-20) BUN 7 L (9-16) mg/dL Creatinine 0.68 (0.5-1.4) mg/dL Estim Creat Clear Calc 63.3 Estimated GFR > 60 Random Glucose 74 (60-115) mg/dL Lactic Acid 1.0 (0.5-2.0) mmol/L Calcium 8.5 D (8.4-10.2) mg/dL Total Bilirubin 0.3 (0.0-1.0) mg/dL AST 23 (5-31) U/L ALT 19 (0-31) U/L Alkaline Phosphatase 101 (39-117) U/L Ammonia < 14 (13-55) umol/L Total Creatine Kinase 67 (26-140) U/L Troponin I High Sens (<3.5-17.0) ng/L B-Natriuretic Peptide 544 H (<100) pg/mL Total Protein 6.3 L (6.5-8.0) g/dL Albumin 3.6 (3.5-5.0) g/dL TSH 0.31 L (0.32-4.0) uIU/mL Free T4 0.84 (0.71-1.85) ng/dL Urine Color Urine Appearance Urine pH (5.0-9.0) Ur Specific [place] (1.005-1.025) Urine Protein (Neg-Trace) mg/dL Urine Glucose (UA) (Negative) mg/dL Urine Ketones (Negative) mg/dL Urine Blood (Negative) Urine Nitrite (Negative) Ur Leukocyte Esterase (Negative) Urine Opiates Screen (Not Detect) Ur Buprenorphine Scrn (Not Detect) ng/mL Ur Oxycodone Screen (Not Detect) ng/mL Urine Methadone Screen (Not Detect) ng/mL Urine Fentanyl Screen (Not Detect) Ur Barbiturates Screen (Not Detect) Valproic Acid 67.4 (50.0-100.0) mcg/mL Ur Phencyclidine Scrn (Not Detect) Ur Amphetamines Screen (Not Detect) U Benzodiazepines Scrn (Not Detect) Urine Cocaine Screen (Not Detect) U Marijuana (THC) Screen (Not Detect) Ethyl Alcohol < 10 mg/dL Influenza Type A (PCR) NEGATIVE (Negative) Influenza Type B (PCR) NEGATIVE (Negative) RSV RNA Qual (PCR) NEGATIVE (Negative) SARS-CoV-2 RNA (RT-PCR) NEGATIVE (Negative) 02/24/24 02/24/24 02/24/24 Range/Units 15:17 15:18 18:21 WBC (4.8-10.8) X10*3/uL RBC (4.20-5.50) X10*6/uL Hgb (12.0-16.0) g/dl Hct (37.0-47.0) % MCV (80.0-98.0) fL MCH (27.0-33.0) pg MCHC (31.0-35.0) g/dl RDW (11.0-16.0) % Plt Count (160-400) X10*3/uL MPV (9.4-12.3) fL Immature Gran % (Auto) (0.0-0.4) % Neut % (Auto) (45-73) % Lymph % (Auto) (20-40) % Love % (Auto) (2-11) % Eos % (Auto) (0-4) % Baso % (Auto) (0-2) % Lymph # (Auto) (1.2-4.9) X10*3/uL Love # (Auto) (0.1-1.2) X10*3/uL Eos # (Auto) (0.0-0.4) X10*3/uL Baso # (Auto) (0.0-0.2) X10*3/uL Abs Immat Gran (auto) (0.00-0.03) X10*3/uL Absolute Neuts (auto) (2.0-8.3) x10*3/uL Absolute Nucleated RBC (0.0-0.012) X10*3/uL Nucleated RBC % (auto) (0.0-0.2) /100WBC PT (11.1-13.3) SEC INR (0.9-1.1) VBG pH 7.43 (7.32-7.43) VBG pCO2 44 mmHg VBG pO2 36 mmHg VBG HCO3 29 H (22-26) mmol/L VBG O2 Saturation 58.0 % VBG Base Excess 4.9 mmol/L Sodium (135-145) mmol/L Potassium (3.3-5.1) mmol/L Chloride (96-108) mmol/L Carbon Dioxide (22-29) mmol/L Anion Gap (12-20) BUN (9-16) mg/dL Creatinine (0.5-1.4) mg/dL Estim Creat Clear Calc Estimated GFR Random Glucose (60-115) mg/dL Lactic Acid (0.5-2.0) mmol/L Calcium (8.4-10.2) mg/dL Total Bilirubin (0.0-1.0) mg/dL AST (5-31) U/L ALT (0-31) U/L Alkaline Phosphatase (39-117) U/L Ammonia (13-55) umol/L Total Creatine Kinase (26-140) U/L Troponin I High Sens 3.2 (<3.5-17.0) ng/L B-Natriuretic Peptide (<100) pg/mL Total Protein (6.5-8.0) g/dL Albumin (3.5-5.0) g/dL TSH (0.32-4.0) uIU/mL Free T4 (0.71-1.85) ng/dL Urine Color Yellow Urine Appearance Clear Urine pH 7.5 (5.0-9.0) Ur Specific [place] <= 1.005 (1.005-1.025) Urine Protein Negative (Neg-Trace) mg/dL Urine Glucose (UA) Negative (Negative) mg/dL Urine Ketones Negative (Negative) mg/dL Urine Blood Negative (Negative) Urine Nitrite Negative (Negative) Ur Leukocyte Esterase Negative (Negative) Urine Opiates Screen Not Detected (Not Detect) Ur Buprenorphine Scrn EXCEPTION (Not Detect) ng/mL Ur Oxycodone Screen EXCEPTION (Not Detect) ng/mL Urine Methadone Screen EXCEPTION (Not Detect) ng/mL Urine Fentanyl Screen Not Detected (Not Detect) Ur Barbiturates Screen POSITIVE H (Not Detect) Valproic Acid (50.0-100.0) mcg/mL Ur Phencyclidine Scrn Not Detected (Not Detect) Ur Amphetamines Screen Not Detected (Not Detect) U Benzodiazepines Scrn Not Detected (Not Detect) Urine Cocaine Screen Not Detected (Not Detect) U Marijuana (THC) Screen POSITIVE H (Not Detect) Ethyl Alcohol mg/dL Influenza Type A (PCR) (Negative) Influenza Type B (PCR) (Negative) RSV RNA Qual (PCR) (Negative) SARS-CoV-2 RNA (RT-PCR) (Negative) Independent Interpretation I performed an independent interpretation of an: EKG and Plain X-Ray Interpretation: Rate: 72 Rhythm:? Normal sinus rhythm Normal P waves.? Normal POLO.?? Normal QRS complex.?? ST T wave :??No ST elevation, no ST depression, no T-wave inversion qTC:440 prior studies:? October 2019 The study has been interpreted contemporaneously by me. Radiology Impression Discussion of test interpretation with radiology: I have reviewed the radiologist's reading. Independent Historian Clinical information obtained from an independent historian. History obtained from or confirmed by: EMS External Record Review External record reviewed: Outpatient record Procedures EJ/Peripheral Line Arm R: Time Out Performed: Yes Skin Cleansed in Sterile Fashion: Yes Size (gauge): 20 IV Secured and Dressing Applied: Yes Patient Tolerated Procedure: well Critical Care Time Critical Care Time Critical Care Time: Yes Total Critical Care Time: 60 Attestation: I personally attest to this critical care time spent taking care of the patient exclusive of all other billable procedures was approximately 60 minutes including initial evaluation of patient, ordering tests, x-ray interpretation, EKG interpretation, Sepsis work-up, medical consultation, documentation, re- evaluation. Discharge Plan Discharge Clinical Impression: Altered mental status Patient Disposition: Home, Self-Care Instructions: Epilepsy (ED) Additional Instructions: Your workup in the ER today was reassuring. It is likely that you had a seizure this morning Your blood work, CT scan and urinalysis were all reassuring Take all your medications as prescribed Follow-up with your primary doctor Return for new or worsening symptoms Prescriptions: No Action meclizine 12.5 mg tablet 12.5 mg PO TID PRN (Reason: dizziness) 20 Days Qty: 60 0RF metoprolol succinate 25 mg tablet extended release 24 hr 12.5 mg PO DAILY 90 Days Qty: 45 1RF atorvastatin 80 mg tablet 80 mg PO DAILY 90 Days Qty: 90 1RF aspirin 81 mg tablet,delayed release (DR/EC) 81 mg PO DAILY 90 Days Qty: 90 1RF albuterol sulfate [Ventolin HFA] 90 mcg/actuation HFA aerosol inhaler 2 puff inhalation Q6H PRN (Reason: shortness of breath or wheezing) Qty: 8.5 2RF Pulmicort Flexhaler 90 mcg/actuation aerosol powdr breath activated 1 inh inhalation Q12H Qty: 1 3RF Rx Instructions: rinse mouth out after each use levothyroxine 100 mcg tablet 100 mcg PO DAILY 90 Days Qty: 90 1RF Arnuity Ellipta 100 mcg/actuation blister with device 1 inh inhalation DAILY 30 Days Qty: 30 0RF primidone 50 mg tablet 50 mg PO TID mirtazapine 45 mg tablet 45 mg PO BEDTIME clonazepam 0.5 mg tablet 0.5 mg PO DAILY PRN (Reason: Anxiety) sertraline 100 mg tablet 200 mg PO QAM zolpidem 10 mg tablet 10 mg PO BEDTIME divalproex 500 mg tablet extended release 24 hr 500 mg PO TID Patient Comments: Per patient she takes now 500 mg in the morning and 1000 mg at night peg 3350-electrolytes [Golytely] 236-22.74-6.74 -5.86 gram recon soln 240 ml PO Q10M 1 Days Qty: 4000 0RF Rx Instructions: until fecal effluent is clear; do not exceed a total volume of 2,000 mL bisacodyl [Dulcolax (bisacodyl)] 5 mg tablet,delayed release (DR/EC) 10 mg PO BEDTIME 2 Days Qty: 4 0RF lansoprazole 30 mg capsule,delayed release(DR/EC) 30 mg PO BID Qty: 180 2RF metoclopramide HCl 10 mg tablet 10 mg PO QID Qty: 120 6RF loperamide 2 mg capsule 2 mg PO Q6H PRN (Reason: loose stool) Qty: 120 3RF sucralfate [Carafate] 100 mg/mL suspension 20 ml PO QNOON Qty: 1000 1RF Print Language: Sinhala
--- NOTE | 2024-02-24 14:09 | PC.NURSE ---
PT DIFF STICK, PHLEBOTOMY CONTACTED FOR DRAW. PT PLACED ON 3L O2.
[2024-02-24] MEDS: cefTRIAXone sodium 1 GM in 0.9 % Sodium Chloride 50 ML IV (15:15)
[2024-02-24 15:22] LABS: MANUAL DIFF FLAG NO
[2024-02-24 15:24] LABS: Venous Blood Gas Refer to POC result
[2024-02-24 15:25] LABS: Basophils Percent Auto 0.3 % (0-2); Eosinophils Percent Auto 0.2 % (0-4); Hemoglobin 13.7 g/dl (12.0-16.0); Imm Gran Abs Auto 0.02 X10*3/uL (0.00-0.03); Imm Gran Pct Auto 0.3 % (0.0-0.4); Lymphocytes Absolute Auto 1.3 X10*3/uL (1.2-4.9); Lymphocytes Percent Auto 21.3 % (20-40); Mean Corpuscular HGB Conc 32.6 g/dl (31.0-35.0); Mean Corpuscular Hemoglobin 32.6 pg (27.0-33.0); Mean Platelet Volume 9.8 fL (9.4-12.3); Monocytes Absolute Auto 0.5 X10*3/uL (0.1-1.2); Monocytes Percent Auto 8.6 % (2-11); Neutrophils Absolute Auto 4.2 x10*3/uL (2.0-8.3); Neutrophils Percent Auto 69.3 % (45-73); Platelet Count 191 X10*3/uL (160-400)
[2024-02-24 15:25] LABS: VBG Base Excess 4.9 mmol/L; VBG HCO3 29 mmol/L (22-26); VBG pCO2 44 mmHg; VBG pH 7.43 (7.32-7.43); VBG pO2 36 mmHg
[2024-02-24 15:31] LABS: INTERNATIONAL NORM RATIO 0.9 (0.9-1.1); Prothrombin Time 10.8 SEC (11.1-13.3)
[2024-02-24 15:45] LABS: B Type Natriuretic Peptide 544 pg/mL (<100)
[2024-02-24 15:47] LABS: Influenza A PCR NEGATIVE (Negative); Influenza B PCR NEGATIVE (Negative); Resp Syncy Virus RNA Qual PCR NEGATIVE (Negative); SARS COV2 PCR INHOUSE NEGATIVE (Negative)
[2024-02-24 15:47] LABS: Troponin-I High Sensitivity 3.2 ng/L (<3.5-17.0)
[2024-02-24 15:48] LABS: Alanine Aminotransferase 19 U/L (0-31); Albumin Level 3.6 g/dL (3.5-5.0); Alkaline Phosphatase 101 U/L (39-117); Anion Gap 12 (12-20); Aspartate Amino Transferase 23 U/L (5-31); Bilirubin Total 0.3 mg/dL (0.0-1.0); Blood Urea Nitrogen 7 mg/dL (9-16); Calcium 8.5 mg/dL (8.4-10.2); Carbon Dioxide 27 mmol/L (22-29); Chloride 106 mmol/L (96-108); Creatinine Clr Calc Pharmacy 63.3; Estimated Glomerular Filt Rate > 60; Ethanol < 10 mg/dL; Glucose Random 74 mg/dL (60-115); Potassium 4.2 mmol/L (3.3-5.1); Sodium 141 mmol/L (135-145); Total Protein 6.3 g/dL (6.5-8.0)
[2024-02-24 15:51] LABS: Ammonia < 14 umol/L (13-55)
[2024-02-24 16:23] LABS: TSH reflex Free T4 0.31 uIU/mL (0.32-4.0)
--- NOTE | 2024-02-24 17:01 | PC.NURSE ---
PT ARRIVES ALTERED, OBTUNDED THOUGH EASILY ROUSED WITH VERBAL STIMULI, ORIENTED AND ANSWERING QUESTIONS APPROPRIATELY. SINCE ARRIVAL PT HAS BECOME MORE ALERT. IVF STILL INFUSING ALL THREE PIVS IN PLACE ARE POSITIONAL.
[2024-02-24 17:14] LABS: Valproate 67.4 mcg/mL (50.0-100.0)
[2024-02-24 17:54] LABS: Free T4 (Free Thyroxine) 0.84 ng/dL (0.71-1.85)
[2024-02-24 18:44] LABS: Amphetamine Screen Urine Not Detected (Not Detect); Barbiturates, Urine POSITIVE (Not Detect); Benzodiazepines Screen Urine Not Detected (Not Detect); Cannabinoid Screen Urine POSITIVE (Not Detect); Cocaine Screen Urine Not Detected (Not Detect); Fentanyl, urine Not Detected (Not Detect); Opiate Screen Urine Not Detected (Not Detect); Phencyclidine Screen Urine Not Detected (Not Detect)
[2024-02-24 18:48] LABS: Appearance Urine Clear; Color Urine Yellow; Glucose Urine UA Negative (Negative); Leukocyte Esterase Urine Negative (Negative); Nitrite Urine Negative (Negative); PH 7.5 (5.0-9.0); Specific Gravity - Urine <= 1.005 (1.005-1.025); Urine Blood Negative (Negative); Urine Ketones Negative (Negative); Urine Protein Negative (Neg-Trace)
== END 2024-02-24 20:06 | disposition home or self-care (01) ==
PROVIDERS: Nurse Practitioner Family; Emergency Provider Emergency Medicine
DX: R40.4 Transient alteration of awareness (principal); I10 Essential (primary) hypertension; I25.2 Old myocardial infarction; I25.10 Atherosclerotic heart disease of native coronary artery without angina pectoris; J44.9 Chronic obstructive pulmonary disease, unspecified; E03.9 Hypothyroidism, unspecified; E78.5 Hyperlipidemia, unspecified; Z03.818 Encounter for observation for suspected exposure to other biological agents ruled out; Z79.899 Other long term (current) drug therapy
CPT/HCPCS: 0241U; 36410; 36415; 70450; 71045; 80053; 80164; 80307; 81003; 82140; 82550; 82803; 83605; 83880; 84439; 84443; 84484; 85025; 85610; 87040; 93005; 96361; 96374; 99284; 99285; J0696

== ENCOUNTER → 2024-02-24 13:43 | Outpatient (BNV) | payer MEDICARE, MEDICAID, SELFPAY | PROVIDERS: Emergency Provider Emergency Medicine; Visit Provider Internal Medicine Cardiovascular Disease | DX: R41.82 Altered mental status, unspecified (principal) | CPT/HCPCS: 93010 ==

== ENCOUNTER 2024-05-03 10:58 | Outpatient (REF) | payer MEDICARE, MEDICAID, SELFPAY | END 2024-05-03 10:59 | disposition home or self-care (01) | LOC: HO.10HDL 10:58 | PROVIDERS: Visit Provider Registered Nurse | DX: G40.209 Localization-related (focal) (partial) symptomatic epilepsy and epileptic syndromes with complex partial seizures, not intractable, without status epilepticus (principal) | CPT/HCPCS: 36415; 80164 ==

== ENCOUNTER 2024-08-06 12:07 | Emergency (ER) | payer MEDICARE, MEDICAID, SELFPAY ==
--- NOTE | ~2024-08-06 | XR_ITS ---
EXAMINATION: XR PELVIS XR HIP, RIGHT CLINICAL INFORMATION: Fall, pain. COMPARISON: Radiograph pelvis and bilateral hips 04/23/2022. TECHNIQUE: One view of the pelvis. Two views of the right hip. FINDINGS: No acute fracture or dislocation. 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 SI joints are symmetric. Pubic symphysis and pelvic rim are maintained. No significant soft tissue abnormality. Pelvic phleboliths are seen. XR/XR hip RT w PEL1V IMPRESSION: 1. No acute fracture or dislocation. 2. 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 Electronically signed by: Amanda Haines MD 08/06/2024 03:28 PM EDT
--- NOTE | ~2024-08-06 | CT_ITS ---
EXAMINATION: CT HEAD WITHOUT CONTRAST CT CERVICAL SPINE WITHOUT CONTRAST CLINICAL INFORMATION: Fall. Head strike. History of Seizures. COMPARISON: CT head December 25, 2023 TECHNIQUE: Imaging was performed from the skull base to vertex without intravenous administration of contrast. In addition, helical noncontrast CT imaging was acquired through the cervical spine and source images were reviewed along with axial reconstructions and sagittal and coronal MPRs. [This CT examination was performed using dose optimization techniques as appropriate, variously including the following: *Automated exposure control *Adjustment of mA and/or kV according to patient size (this includes techniques or standardized protocols for targeted exams where dose is matched to indication/reason for exam; i.e. extremities or head) *Use of iterative reconstruction technique] DLP: 993 mGy-cm FINDINGS: HEAD: No intracranial mass, hemorrhage, or midline shift is visualized. The ventricles and sulci are proportional. No extra-axial collections are identified. The paranasal sinuses and mastoid air cells are well aerated. CERVICAL SPINE: There is no evidence of acute cervical spine fracture. Vertebral bodies remain normal in height. Cervical vertebrae have normal alignment. There is multilevel degenerative spondylosis of the cervical spine with disc height narrowing and endplate spurs and facet joint arthrosis No pre- or paravertebral soft tissue abnormality is identified. Limited assessment of the lung apices is unremarkable. CT/CT head/brain wo IV con IMPRESSION: 1. No acute intracranial pathology. 2. No CT evidence of acute cervical spine fracture or traumatic subluxation Electronically signed by: Bret Lepe MD 08/06/2024 03:10 PM EDT
--- NOTE | ~2024-08-06 | CT_ITS ---
EXAMINATION: CT HEAD WITHOUT CONTRAST CT CERVICAL SPINE WITHOUT CONTRAST CLINICAL INFORMATION: Fall. Head strike. History of Seizures. COMPARISON: CT head December 25, 2023 TECHNIQUE: Imaging was performed from the skull base to vertex without intravenous administration of contrast. In addition, helical noncontrast CT imaging was acquired through the cervical spine and source images were reviewed along with axial reconstructions and sagittal and coronal MPRs. [This CT examination was performed using dose optimization techniques as appropriate, variously including the following: *Automated exposure control *Adjustment of mA and/or kV according to patient size (this includes techniques or standardized protocols for targeted exams where dose is matched to indication/reason for exam; i.e. extremities or head) *Use of iterative reconstruction technique] DLP: 993 mGy-cm FINDINGS: HEAD: No intracranial mass, hemorrhage, or midline shift is visualized. The ventricles and sulci are proportional. No extra-axial collections are identified. The paranasal sinuses and mastoid air cells are well aerated. CERVICAL SPINE: There is no evidence of acute cervical spine fracture. Vertebral bodies remain normal in height. Cervical vertebrae have normal alignment. There is multilevel degenerative spondylosis of the cervical spine with disc height narrowing and endplate spurs and facet joint arthrosis No pre- or paravertebral soft tissue abnormality is identified. Limited assessment of the lung apices is unremarkable. CT/CT cervical spine wo IV con IMPRESSION: 1. No acute intracranial pathology. 2. No CT evidence of acute cervical spine fracture or traumatic subluxation Electronically signed by: Bret Lepe MD 08/06/2024 03:10 PM EDT
[2024-08-06 12:14] VITALS: BP 136/70; PULSE 61; O2SAT 97
[2024-08-06 12:24] VITALS: BP 137/84; PULSE 64; RESP 18; TEMP 36.5; O2SAT 91; BMI 25.3
--- NOTE | 2024-08-06 12:31 | ED_ITS ---
HPI - General Adult General Chief complaint: Fall Stated complaint: FALL,SZ,-LOC,-HS,R HIP PAIN,ALERT PER EMS Time Seen by Provider: 08/06/24 12:30 Source: patient, family, EMS and RN notes reviewed Mode of arrival: EMS Limitations: no limitations History of Present Illness ED Provider: Lilibeth HPI narrative: Patient is a 59-year-old female with history of epilepsy as well as stress induced seizures, COPD not on home O2, hypothyroid, HLD, HTN, CAD, intracranial arachnoid cyst presenting to the emergency department with report of seizure like activity noted by grandchildren and complaint of right hip pain after a fall. Patient states that she was changing her bed sheets as she also had a seizure last night and was incontinent. She reports falling due to loss of balance. Patient states that she held head off fireplace during seizure. Noted to have seizure like activity by grandchildren after fall and EMS found patient to be postictal. She denies headache, vision changes, recent illness. Denies head strike. She is not anticoagulated. States that she sees Dr. Payne for her epilepsy, and psychiatrist for stress induced seizures. Denies any recent changes in medication and has been taking her meds as prescribed. Does report increased stressors recently. MD complaint: fall, seizure Onset (ago): hour(s) Treatments prior to arrival: none Related Data Home Medications ?Medication ?Instructions ?Recorded ?Confirmed clonazepam 0.5 mg tablet 0.5 mg PO DAILY PRN Anxiety 09/12/20 09/16/23 mirtazapine 45 mg tablet 45 mg PO BEDTIME 09/12/20 09/16/23 sertraline 100 mg tablet 200 mg PO QAM 04/28/21 09/16/23 zolpidem 10 mg tablet 10 mg PO BEDTIME 01/21/23 09/16/23 primidone 50 mg tablet 50 mg PO TID 08/11/23 09/16/23 divalproex 500 mg tablet,extended 500 mg PO TID 09/13/23 09/16/23 release 24 hr Previous Rx's ?Medication ?Instructions ?Recorded meclizine 12.5 mg tablet 12.5 mg PO TID PRN dizziness 20 12/18/22 days #60 tabs albuterol sulfate 90 mcg/actuation 2 puff inhalation Q6H PRN 10/25/23 aerosol inhaler (Ventolin HFA) shortness of breath or wheezing #8.5 grams budesonide 90 mcg/actuation breath 1 inh inhalation Q12H #1 ea 11/23/23 activated powder inhaler (Pulmicort Flexhaler) bisacodyl 5 mg tablet,delayed 10 mg (2 x 5 mg) PO BEDTIME 2 days 12/27/23 release (Dulcolax (bisacodyl)) #4 tabs lansoprazole 30 mg capsule,delayed 30 mg PO BID #180 caps 12/27/23 release loperamide 2 mg capsule 2 mg PO Q6H PRN loose stool #120 12/27/23 caps metoclopramide HCl 10 mg tablet 10 mg PO QID #120 tabs 12/27/23 peg 3350-electrolytes 236 240 ml PO Q10M 1 day #4,000 mL 12/27/23 gram-22.74 gram-6.74 gram-5.86 gram solution (Golytely) sucralfate 100 mg/mL oral 20 ml PO QNOON #1,000 mL 02/22/24 suspension (Carafate) Arnuity Ellipta 100 mcg/actuation 1 inh inhalation DAILY #90 ea 03/15/24 powder for inhalation (fluticasone furoate) bisacodyl 5 mg tablet,delayed 20 mg (4 x 5 mg) PO ONCE 1 day #4 04/18/24 release (Dulcolax (bisacodyl)) tabs peg 3350-electrolytes 236 240 ml PO Q10M #4,000 mL 04/18/24 gram-22.74 gram-6.74 gram-5.86 gram solution aspirin 81 mg tablet,delayed 81 mg PO DAILY 90 days #90 tabs 05/10/24 release metoprolol succinate 25 mg 12.5 mg (1/2 x 25 mg) PO DAILY 90 05/24/24 tablet,extended release 24 hr days #45 tabs atorvastatin 80 mg tablet 80 mg PO DAILY 90 days #90 tabs 06/11/24 levothyroxine 100 mcg tablet 100 mcg PO DAILY #90 tabs 06/12/24 Allergies Allergy/AdvReac Type Severity Reaction Status Date / Time latex [LATEX] Allergy Intermediate RASH Verified 08/06/24 12:26 morphine [MORPHINE] Allergy Intermediate SWELLING Verified 08/06/24 12:26 alendronate sodium Allergy Unknown PER H+P Verified 08/06/24 12:26 [From FOSAMAX] levetiracetam [From KEPPRA] AdvReac Intermediate DICKENS Verified 08/06/24 12:26 phenytoin [From DILANTIN] AdvReac Intermediate CANT Verified 08/06/24 12:26 FUNCTION Review of Systems 2 Review of Systems: As per HPI. Yes all other systems are reviewed and are negative Constitutional: Constitutional: Reports as per HPI [facility] Past Medical History Medical History Pre-op examination Screening for cervical cancer Physical exam Screening for colon cancer Pain in right leg Swelling of right lower extremity Breast cancer screening, high risk patient Edema Hypoglycemia Tremor Cerebral microvascular disease Hx of hiatal hernia Tubular adenoma of colon On beta matty at home Nicotine dependence, unspecified, uncomplicated Lumbosacral pain Lumbar stenosis Lumbar radiculitis Multiple pulmonary nodules COPD (chronic obstructive pulmonary disease) Osteoporosis Hypothyroid Depression Hyperlipidemia Hypertension Myocardial infarct CAD (coronary artery disease) Intracranial arachnoid cyst Cerebral atrophy Seizure Surgical History Hx of local excision of skin lesion History of foot surgery (~2013) History of tubal ligation History of heart artery stent (~2004) History of colonoscopy (~2018) History of appendectomy S/P dilatation of esophageal stricture (~2020) History of [place] fundoplication (~2019) History of esophagogastroduodenoscopy (EGD) (~2020) Family History Family History Father Blood clots in brain Diabetes Polio Mother Breast cancer Hiatal hernia Sister Cancer Brother Myocardial infarction Family/Other Throat cancer Stomach cancer Paternal Grandmother Cancer Social History Social History Household Members: Other Housing: Apartment Alcohol intake: current Alcohol intake frequency: does not drink Patient Tobacco Use Status: Current everyday Tobacco user Tobacco use type: Cigarette Cigarette Packs Per Day: 0.5 Cigarettes Per Day: 10.0 Years Smoked: 42 Smoked in Last 30 Days: No e-Cigarette/Vaping Use: Never Used Second Hand Smoke Exposure: No Use of substances other than those prescribed or required for medical reasons: No Advance Directives: Yes Advance Directives Information Provided: Yes Advance Directives on File: No Current occupational status: disabled Cognitive needs: No Hearing needs: No Vision needs: No Physical Exam ED Vital Signs: Vital Signs - 24 hr 08/06/24 12:24 08/06/24 14:33 Temperature 97.7 F Pulse Rate 64 64 Respiratory Rate 18 13 Blood Pressure 137/84 124/77 Pulse Oximetry 91 L 93 Oxygen Delivery Method Room Air Room Air BMI result Body Mass Index 25.3 Vital signs have been reviewed and appear to be correct. Blood pressure normal. Heart rate normal. Respiratory rate normal. Temperature normal. Oxygen saturation low, baseline on room air is 89-91% per patient. Const General: cooperative, healthy appearing and no acute distress Orientation/consciousness: oriented to person, oriented to place, oriented to time and patient oriented x3 Limitations: no limitations HENMT Head: Yes normocephalic and Yes atraumatic Ears: external ears normal General nose exam: Normal external nose present Face and sinus: Yes face symmetric Mouth: oropharynx normal and moist mucous membranes Throat: Yes uvula midline Eyes Pupils: Equal, round and reactive pupils present Neck Neck: Yes normal visual inspection and Yes supple Resp Effort & Inspection: normal respiratory effort and able to speak in complete sentences Auscultation: clear to auscultation bilaterally Cardio Rate: regular rate Rhythm: regular rhythm Heart sounds: S1 normal heart sound present and S2 normal heart sound present GI Palpation (GI): Soft to palpation and nontender Auscultation: normoactive bowel sounds General: Yes no CVA tenderness Back/Spine/Pelvis Back: no CVA tenderness Pelvis: no pain with anterior-posterior compression and no pain with lateral compression Skin General skin exam: elasticity normal and turgor normal Neuro General: oriented to person, oriented to place, oriented to time, patient oriented x3, moves all extremities, no focal motor deficits and CN's II-XI intact bilaterally Cranial nerves: Yes Equal, round and reactive pupils present Cognition (Neuro): normal cognition Extrem General: Yes full ROM, Yes no pedal edema and Yes no calf tenderness Psych Mental Status: mental status grossly normal Affect: normal affect Thought process: Normal thought process present Medical Decision Making Medical Decision Making MDM Narrative: Patient is a 59-year-old female with history of epilepsy as well as stress induced seizures, COPD not on home O2, hypothyroid, HLD, HTN, CAD, intracranial arachnoid cyst presenting to the emergency department with report of seizure like activity noted by grandchildren and complaint of right hip pain after a fall. On exam patient is awake, A+Ox3, VS WNL, afebrile, normal neurological exam without focal deficits, physical exam findings as above. Given reported symptoms and physical exam findings, initial differential includes epileptic versus stress induced seizure, ICH, skull or cervical vertebral fracture or subluxation, right hip contusion versus fracture. Labs unremarkable. X-ray hip notable for no evidence of fracture. CT head and c-spine notable for no evidence of ICH, skull or cervical vertebral fracture or subluxation. My interpretation is in agreement with the radiologist's interpretation. Viral serology negative. Patient states that she is comfortable with discharge home. Feel patient is stable for discharge. Advised her to follow up with Dr. Payne and PCP. Return precautions discussed. Patient verbalized understanding of and agreement with plan. Differential Diagnosis Differential Diagnoses: The differential diagnosis associated with the presentation includes As per [facility] Admission/Observation Consideration of admission/observation: Escalation of care including admission/observation considered Patient would have been admitted to the hospital had their work up had any findings where hospital admission was appropriate and their clinical presentation warranted hospital admission. Lab Data [facility] Lab Attestation statement: I reviewed the patient's lab results. As per [facility] 08/06/24 13:18 08/06/24 13:18 Labs: Lab Results 08/06/24 Range/Units 13:18 WBC 8.6 (4.8-10.8) X10*3/uL RBC 4.00 L (4.20-5.50) X10*6/uL Hgb 13.4 (12.0-16.0) g/dl Hct 39.9 (37.0-47.0) % MCV 99.8 H (80.0-98.0) fL MCH 33.5 H (27.0-33.0) pg MCHC 33.6 (31.0-35.0) g/dl RDW 14.2 (11.0-16.0) % Plt Count 259 D (160-400) X10*3/uL MPV 9.6 (9.4-12.3) fL Immature Gran % (Auto) 0.6 H (0.0-0.4) % Neut % (Auto) 76.0 H (45-73) % Lymph % (Auto) 15.1 L (20-40) % [place] % (Auto) 7.4 (2-11) % Eos % (Auto) 0.6 (0-4) % Baso % (Auto) 0.3 (0-2) % Lymph # (Auto) 1.3 (1.2-4.9) X10*3/uL [place] # (Auto) 0.6 (0.1-1.2) X10*3/uL Eos # (Auto) 0.1 (0.0-0.4) X10*3/uL Baso # (Auto) 0.0 (0.0-0.2) X10*3/uL Abs Immat Gran (auto) 0.05 H (0.00-0.03) X10*3/uL Absolute Neuts (auto) 6.6 (2.0-8.3) x10*3/uL Absolute Nucleated RBC 0.000 (0.0-0.012) X10*3/uL Nucleated RBC % (auto) 0.0 (0.0-0.2) /100WBC Sodium 138 (135-145) mmol/L Potassium 4.2 (3.3-5.1) mmol/L Chloride 104 (96-108) mmol/L Carbon Dioxide 31 H (22-29) mmol/L Anion Gap 7 L (12-20) BUN 9 (9-16) mg/dL Creatinine 0.63 (0.5-1.4) mg/dL Estim Creat Clear Calc 63.8 Estimated GFR > 60 Random Glucose 91 (60-115) mg/dL Lactic Acid 1.4 (0.5-2.0) mmol/L Calcium 8.3 L (8.4-10.2) mg/dL Magnesium 1.6 (1.6-2.6) mg/dL Total Bilirubin 0.4 (0.0-1.0) mg/dL AST 49 H (5-31) U/L ALT 24 (0-31) U/L Alkaline Phosphatase 96 (39-117) U/L Ammonia 24 (13-55) umol/L Troponin I High Sens < 2.7 (<3.5-17.0) ng/L Total Protein 5.9 L (6.5-8.0) g/dL Albumin 3.5 (3.5-5.0) g/dL TSH 1.02 (0.32-4.0) uIU/mL Ethyl Alcohol < 10 mg/dL Influenza Type A (PCR) NEGATIVE (Negative) Influenza Type B (PCR) NEGATIVE (Negative) RSV RNA Qual (PCR) NEGATIVE (Negative) SARS-CoV-2 RNA (RT-PCR) NEGATIVE (Negative) Independent Interpretation I performed an independent interpretation of an: Plain X-Ray and CT Scan Interpretation: No evidence of fracture to right hip on x-ray No evidence of ICH, skull or cervical vertebral fracture subluxation on CT head and C-spine Radiology Impression Discussion of test interpretation with radiology: I have reviewed the radiologist's reading. Radiologist Impression: XR/XR hip RT w PEL1V IMPRESSION: 1. No acute fracture or dislocation. 2. 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 CT/CT cervical spine wo IV con IMPRESSION: 1. No acute intracranial pathology. 2. No CT evidence of acute cervical spine fracture or traumatic subluxation External Record Review External record reviewed: Inpatient record, Office record and Outpatient record Discharge Plan Discharge Clinical Impression: Seizure, Fall Patient Disposition: Home, Self-Care Instructions: Nonepileptic Seizures (DC), Epilepsy in Older Adults (ED), Fall Prevention (ED) Additional Instructions: You have been evaluated in the emergency department today for seizure like activity and fall. Your CT scans did not show signs of bleeding or fractures in your head or neck. Your x-ray did not show evidence of any hip fracture. Continue taking your medications as prescribed. Follow up with Dr. Payne. Please schedule an appointment with for follow-up with your primary care provider as soon as possible. Return to the emergency department if you experience worsening or uncontrolled pain, vision changes, recurrent vomiting, difficulty with normal activities, abnormal behavior, difficulty walking, numbness, weakness, or any other concerning symptoms. Prescriptions: No Action meclizine 12.5 mg tablet 12.5 mg PO TID PRN (Reason: dizziness) 20 Days Qty: 60 0RF albuterol sulfate [Ventolin HFA] 90 mcg/actuation HFA aerosol inhaler 2 puff inhalation Q6H PRN (Reason: shortness of breath or wheezing) Qty: 8.5 2RF Pulmicort Flexhaler 90 mcg/actuation aerosol powdr breath activated 1 inh inhalation Q12H Qty: 1 3RF Rx Instructions: rinse mouth out after each use Arnuity Ellipta 100 mcg/actuation blister with device 1 inh inhalation DAILY Qty: 90 1RF bisacodyl [Dulcolax (bisacodyl)] 5 mg tablet,delayed release (DR/EC) 20 mg PO ONCE 1 Days Qty: 4 0RF Rx Instructions: the day before colonoscopy take 2 pills at 12pm and 2 pills at 5pm with 8oz of water peg 3350-electrolytes 236-22.74-6.74 -5.86 gram recon soln 240 ml PO Q10M Qty: 4000 0RF Rx Instructions: Refer to prep instructions given/ mailed to you from GI OFFICE. until fecal effluent is clear aspirin 81 mg tablet,delayed release (DR/EC) 81 mg PO DAILY 90 Days Qty: 90 1RF metoprolol succinate 25 mg tablet extended release 24 hr 12.5 mg PO DAILY 90 Days Qty: 45 1RF atorvastatin 80 mg tablet 80 mg PO DAILY 90 Days Qty: 90 1RF levothyroxine 100 mcg tablet 100 mcg PO DAILY Qty: 90 1RF primidone 50 mg tablet 50 mg PO TID mirtazapine 45 mg tablet 45 mg PO BEDTIME clonazepam 0.5 mg tablet 0.5 mg PO DAILY PRN (Reason: Anxiety) sertraline 100 mg tablet 200 mg PO QAM zolpidem 10 mg tablet 10 mg PO BEDTIME divalproex 500 mg tablet extended release 24 hr 500 mg PO TID Patient Comments: Per patient she takes now 500 mg in the morning and 1000 mg at night peg 3350-electrolytes [Golytely] 236-22.74-6.74 -5.86 gram recon soln 240 ml PO Q10M 1 Days Qty: 4000 0RF Rx Instructions: until fecal effluent is clear; do not exceed a total volume of 2,000 mL bisacodyl [Dulcolax (bisacodyl)] 5 mg tablet,delayed release (DR/EC) 10 mg PO BEDTIME 2 Days Qty: 4 0RF lansoprazole 30 mg capsule,delayed release(DR/EC) 30 mg PO BID Qty: 180 2RF metoclopramide HCl 10 mg tablet 10 mg PO QID Qty: 120 6RF loperamide 2 mg capsule 2 mg PO Q6H PRN (Reason: loose stool) Qty: 120 3RF sucralfate [Carafate] 100 mg/mL suspension 20 ml PO QNOON Qty: 1000 1RF Referrals: Nisha Payne MD [Physician] - Print Language: Emirati
--- NOTE | 2024-08-06 12:32 | ECG_ITS ---
Test Reason : SEIZURE Blood Pressure : / mmHG Vent. Rate : 063 BPM Atrial Rate : 063 BPM P-R Int : 120 ms QRS Dur : 076 ms QT Int : 420 ms P-R-T Axes : 072 052 014 degrees QTc Int : 429 ms Normal sinus rhythm Low voltage QRS Borderline ECG When compared with ECG of 24-FEB-2024 14:23, No significant change was found Referred By: Jyoti Mcelroy Electronically Signed By:GREGG KAMARA
[2024-08-06 13:23] LABS: MANUAL DIFF FLAG NO
[2024-08-06 13:26] LABS: Basophils Percent Auto 0.3 % (0-2); Eosinophils Absolute Auto 0.1 X10*3/uL (0.0-0.4); Eosinophils Percent Auto 0.6 % (0-4); Hematocrit 39.9 % (37.0-47.0); Hemoglobin 13.4 g/dl (12.0-16.0); Imm Gran Abs Auto 0.05 X10*3/uL (0.00-0.03); Imm Gran Pct Auto 0.6 % (0.0-0.4); Lymphocytes Absolute Auto 1.3 X10*3/uL (1.2-4.9); Lymphocytes Percent Auto 15.1 % (20-40); Mean Corpuscular HGB Conc 33.6 g/dl (31.0-35.0); Mean Corpuscular Hemoglobin 33.5 pg (27.0-33.0); Mean Corpuscular Volume 99.8 fL (80.0-98.0); Mean Platelet Volume 9.6 fL (9.4-12.3); Monocytes Absolute Auto 0.6 X10*3/uL (0.1-1.2); Monocytes Percent Auto 7.4 % (2-11); Neutrophils Absolute Auto 6.6 x10*3/uL (2.0-8.3); Platelet Count 259 X10*3/uL (160-400); Red Cell Distribution Width 14.2 % (11.0-16.0); White Blood Count 8.6 X10*3/uL (4.8-10.8)
[2024-08-06 13:39] LABS: Lactic Acid 1.4 mmol/L (0.5-2.0)
[2024-08-06 13:50] LABS: Ammonia 24 umol/L (13-55)
[2024-08-06 13:53] LABS: Alanine Aminotransferase 24 U/L (0-31); Albumin Level 3.5 g/dL (3.5-5.0); Alkaline Phosphatase 96 U/L (39-117); Anion Gap 7 (12-20); Aspartate Amino Transferase 49 U/L (5-31); Bilirubin Total 0.4 mg/dL (0.0-1.0); Blood Urea Nitrogen 9 mg/dL (9-16); Calcium 8.3 mg/dL (8.4-10.2); Carbon Dioxide 31 mmol/L (22-29); Chloride 104 mmol/L (96-108); Creatinine Clr Calc Pharmacy 63.8; Estimated Glomerular Filt Rate > 60; Ethanol < 10 mg/dL; Glucose Random 91 mg/dL (60-115); Magnesium 1.6 mg/dL (1.6-2.6); Potassium 4.2 mmol/L (3.3-5.1); Sodium 138 mmol/L (135-145); Total Protein 5.9 g/dL (6.5-8.0); Troponin-I High Sensitivity < 2.7 ng/L (<3.5-17.0)
[2024-08-06 14:06] LABS: TSH reflex Free T4 1.02 uIU/mL (0.32-4.0)
[2024-08-06 14:32] LABS: Influenza A PCR NEGATIVE (Negative); Influenza B PCR NEGATIVE (Negative); Resp Syncy Virus RNA Qual PCR NEGATIVE (Negative); SARS COV2 PCR INHOUSE NEGATIVE (Negative)
[2024-08-06 14:33] VITALS: BP 124/77; PULSE 64; RESP 13; O2SAT 93
[2024-08-06 16:23] VITALS: BP 101/67; PULSE 66; RESP 18; TEMP 36.6; O2SAT 94
== END 2024-08-06 16:34 | disposition home or self-care (01) ==
PROVIDERS: Registered Nurse Emergency; Emergency Provider Emergency Medicine; PCP Nurse Practitioner Family
DX: R56.9 Unspecified convulsions (principal); Z91.81 History of falling; Z03.818 Encounter for observation for suspected exposure to other biological agents ruled out; I10 Essential (primary) hypertension; E78.5 Hyperlipidemia, unspecified; E03.9 Hypothyroidism, unspecified; J44.9 Chronic obstructive pulmonary disease, unspecified; F17.210 Nicotine dependence, cigarettes, uncomplicated; Z79.899 Other long term (current) drug therapy; Z79.02 Long term (current) use of antithrombotics/antiplatelets
CPT/HCPCS: 0241U; 36415; 70450; 72125; 73502; 80053; 80307; 82140; 83605; 83735; 84443; 84484; 85025; 93005; 99284

== ENCOUNTER → 2024-08-06 12:32 | Outpatient (BNV) | payer MEDICARE, MEDICAID, SELFPAY | PROVIDERS: Emergency Provider Emergency Medicine; PCP Nurse Practitioner Family; Visit Provider Internal Medicine | DX: R94.31 Abnormal electrocardiogram [ECG] [EKG] (principal); G40.89 Other seizures | CPT/HCPCS: 93010 ==

== ENCOUNTER 2024-10-21 11:39 | Emergency (ER) | payer MEDICARE, MEDICAID, SELFPAY ==
--- NOTE | ~2024-10-21 | XR_ITS ---
CLINICAL HISTORY: shortness of breath 2 view chest x-ray Comparison: 12/03/2021 Findings: The lungs are clear. Heart size is normal. No acute fracture. IMPRESSION: 1. No acute findings. This document has been electronically signed by: Ruben Barriga MD on 10/21/2024 12:18:54
--- NOTE | ~2024-10-21 | CT_ITS ---
CLINICAL HISTORY: L2 compression pfracture, pain, weakness CT lumbar spine without contrast Comparison: CR - XR LUMBAR SPINE 2-3V - 10/21/24 12:11 EST MR/ND - MRI LUMBAR SPINE [id number] - 05/26/19 13:49 EDT Findings: 3 mm anterolisthesis of L5 on S1, degenerative. Mild levocurvature with the apex at L2/L3. Mild height loss of L2 with a fracture line near the superior endplate. 3 mm retropulsion of fracture fragments causing mild central spinal canal stenosis. No involvement of the posterior elements. Decreased bone mineralization. No severe spinal canal stenosis. No epidural hematoma. There is edema in the subcutaneous fat. Impression: Mild compression fracture of L2. 3 mm retropulsion of fracture fragments causing mild central spinal canal stenosis. No involvement of the posterior elements. This document has been electronically signed by: Monika Walter MD on 10/21/2024 17:56:41
--- NOTE | ~2024-10-21 | XR_ITS ---
CLINICAL HISTORY: diffuse pain 3 views lumbar spine Comparison: 05/26/2019 Findings: Thoracolumbar scoliotic curvature. There is a 70% L2 vertebral body compression injury, acuity indeterminate, without compromise adjacent spinal canal. No other fractures or dislocation. No significant degenerative change. IMPRESSION: 70% L2 vertebral body compression injury, acuity indeterminate.. This document has been electronically signed by: Ruben Barriga MD on 10/21/2024 12:20:01
--- NOTE | 2024-10-21 11:42 | ED_ITS ---
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 Patient states she fell 2 weeks ago, since she has had worsening low back pain. The pain is nonradiating to either extremity. Denies paresthesia or weakness of lower extremities. Denies urinary retention or bowel incontinence. Patient states she had to catch her cat, who escaped from her apartment, yesterday. Since the excessive physical activity, her discomfort has worsened. Patient also complains of worsening productive cough over the past few days. Patient states she always has a cough to some degree, but has been exacerbated over the past few days. Denies fever, chest pain, diaphoresis, nausea vomiting. Related Data Home Medications ?Medication ?Instructions ?Recorded ?Confirmed clonazepam 0.5 mg tablet 0.5 mg PO DAILY PRN Anxiety 09/12/20 09/16/23 mirtazapine 45 mg tablet 45 mg PO BEDTIME 09/12/20 09/16/23 sertraline 100 mg tablet 200 mg PO QAM 04/28/21 09/16/23 zolpidem 10 mg tablet 10 mg PO BEDTIME 01/21/23 09/16/23 primidone 50 mg tablet 50 mg PO TID 08/11/23 09/16/23 divalproex 500 mg tablet,extended 500 mg PO TID 09/13/23 09/16/23 release 24 hr Previous Rx's ?Medication ?Instructions ?Recorded meclizine 12.5 mg tablet 12.5 mg PO TID PRN dizziness 20 12/18/22 days #60 tabs albuterol sulfate 90 mcg/actuation 2 puff inhalation Q6H PRN 10/25/23 aerosol inhaler (Ventolin HFA) shortness of breath or wheezing #8.5 grams budesonide 90 mcg/actuation breath 1 inh inhalation Q12H #1 ea 11/23/23 activated powder inhaler (Pulmicort Flexhaler) bisacodyl 5 mg tablet,delayed 10 mg (2 x 5 mg) PO BEDTIME 2 days 12/27/23 release (Dulcolax (bisacodyl)) #4 tabs lansoprazole 30 mg capsule,delayed 30 mg PO BID #180 caps 12/27/23 release loperamide 2 mg capsule 2 mg PO Q6H PRN loose stool #120 12/27/23 caps metoclopramide HCl 10 mg tablet 10 mg PO QID #120 tabs 12/27/23 peg 3350-electrolytes 236 240 ml PO Q10M 1 day #4,000 mL 12/27/23 gram-22.74 gram-6.74 gram-5.86 gram solution (Golytely) sucralfate 100 mg/mL oral 20 ml PO QNOON #1,000 mL 02/22/24 suspension (Carafate) Arnuity Ellipta 100 mcg/actuation 1 inh inhalation DAILY #90 ea 03/15/24 powder for inhalation (fluticasone furoate) bisacodyl 5 mg tablet,delayed 20 mg (4 x 5 mg) PO ONCE 1 day #4 04/18/24 release (Dulcolax (bisacodyl)) tabs peg 3350-electrolytes 236 240 ml PO Q10M #4,000 mL 04/18/24 gram-22.74 gram-6.74 gram-5.86 gram solution aspirin 81 mg tablet,delayed 81 mg PO DAILY 90 days #90 tabs 05/10/24 release metoprolol succinate 25 mg 12.5 mg (1/2 x 25 mg) PO DAILY 90 05/24/24 tablet,extended release 24 hr days #45 tabs atorvastatin 80 mg tablet 80 mg PO DAILY 90 days #90 tabs 06/11/24 levothyroxine 100 mcg tablet 100 mcg PO DAILY #90 tabs 06/12/24 azithromycin 250 mg tablet 250 mg PO DAILY 4 days #4 tabs 10/21/24 ketorolac 10 mg tablet 10 mg PO Q6H PRN pain #20 tabs 10/21/24 methocarbamol 750 mg tablet 750 mg PO BEDTIME PRN pain, 10/21/24 moderate #7 tabs prednisone 20 mg tablet 40 mg (2 x 20 mg) PO DAILY #8 tabs 10/21/24 Allergies Allergy/AdvReac Type Severity Reaction Status Date / Time latex [LATEX] Allergy Intermediate RASH Verified 10/21/24 11:46 morphine [MORPHINE] Allergy Intermediate SWELLING Verified 10/21/24 11:46 alendronate sodium Allergy Unknown PER H+P Verified 10/21/24 11:46 [From FOSAMAX] levetiracetam [From KEPPRA] AdvReac Intermediate DICKENS Verified 10/21/24 11:46 phenytoin [From DILANTIN] AdvReac Intermediate CANT Verified 10/21/24 11:46 FUNCTION Review of Systems 2 Review of Systems: Yes all other systems are reviewed and are negative Constitutional: Constitutional: Denies fatigue and Denies fever(s) Cardiovascular: Cardiovascular: Denies chest pain and Denies dyspnea Respiratory: Respiratory: Reports chest congestion, Reports cough, Denies dyspnea and Denies wheezing Gastrointestinal: Gastrointestinal: Denies abdominal pain and Denies nausea Musculoskeletal: Musculoskeletal: Reports back pain, Denies muscle weakness, Denies numbness, Denies radiating pain into limb and Denies tingling Neurologic: Denies numbness and Denies tingling Endocrine: Endocrine: Denies fatigue Allergic/Immunologic: Allergic/Immunologic: Denies wheezing PMF Past Medical History Attestation statement: The following information was validated with the patient. Medical History (Updated 10/22/24 @ 00:01 by Rick Ivan) Screening for cervical cancer Screening for colon cancer Pain in right leg Swelling of right lower extremity Breast cancer screening, high risk patient Edema Hypoglycemia Tremor Cerebral microvascular disease Hx of hiatal hernia Tubular adenoma of colon On beta matty at home Nicotine dependence, unspecified, uncomplicated Lumbosacral pain Lumbar stenosis Lumbar radiculitis Multiple pulmonary nodules COPD (chronic obstructive pulmonary disease) Osteoporosis Hypothyroid Depression Hyperlipidemia Hypertension Myocardial infarct CAD (coronary artery disease) Intracranial arachnoid cyst Cerebral atrophy Seizure Surgical History Hx of local excision of skin lesion History of foot surgery (~2013) History of tubal ligation History of heart artery stent (~2004) History of colonoscopy (~2018) History of appendectomy S/P dilatation of esophageal stricture (~2020) History of [place] fundoplication (~2019) History of esophagogastroduodenoscopy (EGD) (~2020) Family History Family History Father Blood clots in brain Diabetes Polio Mother Breast cancer Hiatal hernia Sister Cancer Brother Myocardial infarction Family/Other Throat cancer Stomach cancer Paternal Grandmother Cancer Social History Social History Household Members: Other Housing: Apartment Alcohol intake: current Alcohol intake frequency: does not drink Patient Tobacco Use Status: Current everyday Tobacco user Tobacco use type: Cigarette Cigarette Packs Per Day: 0.5 Cigarettes Per Day: 10.0 Years Smoked: 42 Smoked in Last 30 Days: Yes e-Cigarette/Vaping Use: Never Used Second Hand Smoke Exposure: No Use of substances other than those prescribed or required for medical reasons: No Advance Directives: No Advance Directives Information Provided: Yes Do you have a plan to hurt others: No Plan Current occupational status: disabled Cognitive needs: No Hearing needs: No Vision needs: No Physical Exam 2 Vital Signs: Vital Signs: Last Vital Signs Temp 98.0 F 10/21/24 22:40 Pulse 69 10/21/24 22:40 Resp 20 10/21/24 22:40 BP 116/65 10/21/24 22:40 Pulse Ox 95 10/21/24 22:40 O2 Del Method Room Air 10/21/24 22:40 BMI result Body Mass Index 23.8 Const: Other: Alert, appears older than stated age Orientation/consciousness: patient oriented x3 Resp: Other: Wet active productive cough, diffuse crackles noted on exam, crackles clear to some degree with coughing, no wheezing, she is not tachypneic Cardio: Other: Normal peripheral perfusion Skin: Other: Warm dry no rash Neuro: General: patient oriented x3, no focal motor deficits and CN's II-XI intact bilaterally Extrem: Other: Strength 5/5 bilateral lower extremities Psych: Other: Cooperative Course Course Course Narrative: This is an RME performed by Geraldine Davis CNP: Additional HPI, ROS, PE not included below will be deferred to primary provider. Patient is a 59-year-old female who presents to the emergency department for evaluation of severe pain from the bilateral hips across the lower back onset from injury in July of 2024 for which she states she was seen in this emergency department, endorses decreased mobility/ weakness, not currently on pain medications. Additionally experiencing shortness of breath, reports increasing shortness of breath over the past few weeks, states that her cough has been changing, was previously having an audible croup like cough now is weak and minimally able to have any production. Plan: XR lumbar spine, CXR, serum labs, EKG, viral serologies Received call from [facility] regarding critical finding on lumbar spine XR L2 compression fracture 70%. Patient made aware of these findings, obtaining CT of the lumbar spine for further evaluation Medications Administered Discontinued Medications Generic Name Dose Route Start Last Admin Trade Name Albaro PRN Reason Stop Dose Admin Azithromycin 500 mg 10/21/24 21:22 10/21/24 21:39 Azithromycin 500 Mg Tablet PO 10/21/24 21:23 500 mg ONCE ONE Administration Albuterol Sulfate 2.5 mg/ 0 mg 10/21/24 21:22 10/21/24 21:28 Albuterol/Ipratropium 3 ml INHALE 10/21/24 21:23 1 dose ONCE ONE Administration Guaifenesin/Dextromethorphan 2 tab 10/21/24 20:01 10/21/24 20:19 Guaifenesin Dm 600/30 1 Tab Tab.Er.12h PO 10/21/24 20:02 2 tab ONCE ONE Administration Magnesium Sulfate 2 gm in 50 mls @ 25 mls/hr 10/21/24 19:49 10/21/24 20:19 Magnesium Sulfate/H2o IV 10/21/24 21:48 25 mls/hr ONCE ONE Administration Ketorolac Tromethamine 15 mg 10/21/24 20:02 10/21/24 20:19 Ketorolac Tromethamine 15 Mg/Ml Vial IVPUSH 10/21/24 20:03 15 mg ONCE ONE Administration Methylprednisolone Sodium Succinate 125 mg 10/21/24 21:22 10/21/24 21:39 Methylprednisolone Sod Succ 125 Mg/2 Ml Vial IVPUSH 10/21/24 21:23 125 mg ONCE ONE Administration Medical Decision Making Medical Decision Making MDM Narrative: 59-year-old female with a history of osteoarthritis, osteoporosis, gait instability who uses a walker to ambulate at baseline, 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 Patient states she fell 2 weeks ago, since she has had worsening low back pain. The pain is nonradiating to either extremity. Denies paresthesia or weakness of lower extremities. Denies urinary retention or bowel incontinence. Patient states she had to catch her cat, who escaped from her apartment, yesterday. Since the excessive physical activity, her discomfort has worsened. Patient also complains of worsening productive cough over the past few days. Patient states she always has a cough to some degree, but has been exacerbated over the past few days. Denies fever, chest pain, diaphoresis, nausea vomiting. Problem: Osteoporosis, COPD, ongoing tobacco abuse History: Per patient I have considered the following differential diagnoses: Lumbar radiculopathy, cauda equina, back strain, compression fracture, COPD exacerbation, bronchitis, pneumonia, viral syndrome Plan: In regard to the patient's back complaint, she has a compression fracture. She is ambulatory, however has been in a great deal of discomfort. She states she has an opiate use disorder history, and is emphatic about not having any opiate analgesia. I will treat with a muscle relaxant and an anti- inflammatory. I offered case management and physical therapy, the patient declines. She is currently trying to obtain further services to her independent living facility, she has a [facility]ORY [facility]ARE [facility] at this time. In regard to the patient's cough, unclear duration of symptoms, she has a chronic smoker's cough at baseline. Screening labs including a viral panel and chest x-ray were obtained from triage, there was no pneumonia, the viral panel is negative. We will be giving her an updraft with the ipratropium, her cough is wet. We will be giving Mucinex, Solu-Medrol and we will cover her with a Z-Cody. I have independently reviewed the following tests: Labs: No leukocytosis, not anemic, magnesium subtly low at 1.4, no additional electrolyte abnormalities, viral panel negative X-ray lumbar spine: Comparison: 05/26/2019 Findings: Thoracolumbar scoliotic curvature. There is a 70% L2 vertebral body compression injury, acuity indeterminate, without compromise adjacent spinal canal. No other fractures or dislocation. No significant degenerative change. IMPRESSION: 70% L2 vertebral body compression injury, acuity indeterminate.. This document has been electronically signed by: Ruben Barriga MD on 10/21/2024 12:20:01 CT lumbar spine:CT lumbar spine without contrast Comparison: CR - XR LUMBAR SPINE 2-3V - 10/21/24 12:11 EST MR/MO - MRI LUMBAR SPINE [id number] - 05/26/19 13:49 EDT Findings: 3 mm anterolisthesis of L5 on S1, degenerative. Mild levocurvature with the apex at L2/L3. Mild height loss of L2 with a fracture line near the superior endplate. 3 mm retropulsion of fracture fragments causing mild central spinal canal stenosis. No involvement of the posterior elements. Decreased bone mineralization. No severe spinal canal stenosis. No epidural hematoma. There is edema in the subcutaneous fat. Impression: Mild compression fracture of L2. 3 mm retropulsion of fracture fragments causing mild central spinal canal stenosis. No involvement of the posterior elements. This document has been electronically signed by: Monika Walter MD on 10/21/2024 17:56:41 CXR: 2 view chest x-ray Comparison: 12/03/2021 Findings: The lungs are clear. Heart size is normal. No acute fracture. IMPRESSION: 1. No acute findings. This document has been electronically signed by: Ruben Barriga MD on 10/21/2024 12:18:54 Lab Data 10/21/24 12:26 10/21/24 12:26 Labs: Lab Results 10/21/24 Range/Units 12:26 WBC 7.5 (4.8-10.8) X10*3/uL RBC 3.78 L (4.20-5.50) X10*6/uL Hgb 12.5 (12.0-16.0) g/dl Hct 35.8 L (37.0-47.0) % MCV 94.7 (80.0-98.0) fL MCH 33.1 H (27.0-33.0) pg MCHC 34.9 (31.0-35.0) g/dl RDW 13.2 (11.0-16.0) % Plt Count 255 (160-400) X10*3/uL MPV 10.1 (9.4-12.3) fL Immature Gran % (Auto) 0.3 (0.0-0.4) % Neut % (Auto) 71.5 (45-73) % Lymph % (Auto) 19.1 L (20-40) % [place] % (Auto) 8.7 (2-11) % Eos % (Auto) 0.1 (0-4) % Baso % (Auto) 0.3 (0-2) % Lymph # (Auto) 1.4 (1.2-4.9) X10*3/uL [place] # (Auto) 0.7 (0.1-1.2) X10*3/uL Eos # (Auto) 0.0 (0.0-0.4) X10*3/uL Baso # (Auto) 0.0 (0.0-0.2) X10*3/uL Abs Immat Gran (auto) 0.02 (0.00-0.03) X10*3/uL Absolute Neuts (auto) 5.4 (2.0-8.3) x10*3/uL Absolute Nucleated RBC 0.000 (0.0-0.012) X10*3/uL Nucleated RBC % (auto) 0.0 (0.0-0.2) /100WBC PT 12.4 (10.9-12.4) SEC INR 1.1 (0.9-1.1) Sodium 140 (135-145) mmol/L Potassium 4.0 (3.3-5.1) mmol/L Chloride 108 (96-108) mmol/L Carbon Dioxide 26 (22-29) mmol/L Anion Gap 10 L (12-20) BUN 5 L (9-16) mg/dL Creatinine 0.64 (0.5-1.4) mg/dL Estim Creat Clear Calc 60.5 Estimated GFR > 60 Random Glucose 75 (60-115) mg/dL Calcium 8.6 (8.4-10.2) mg/dL Magnesium 1.4 L* (1.6-2.6) mg/dL Total Bilirubin 0.3 (0.0-1.0) mg/dL AST 21 (5-31) U/L ALT 7 (0-31) U/L Alkaline Phosphatase 71 (39-117) U/L Total Protein 6.0 L (6.5-8.0) g/dL Albumin 3.4 L (3.5-5.0) g/dL Influenza Type A (PCR) NEGATIVE (Negative) Influenza Type B (PCR) NEGATIVE (Negative) RSV RNA Qual (PCR) NEGATIVE (Negative) SARS-CoV-2 RNA (RT-PCR) NEGATIVE (Negative) Discharge Plan Discharge Clinical Impression: COPD exacerbation, Bronchitis, Compression fx, lumbar spine Patient Disposition: Home, Self-Care Instructions: Vertebral Compression Fracture (ED), Acute Bronchitis (ED), COPD (Chronic Obstructive Pulmonary Disease) (ED) Additional Instructions: You were found to have a compression fracture at the level of lumbar vertebrae 2. You were offered case management and physical therapy assessment, you declined. You need to follow up with your primary care provider. I am providing you with a contact for an orthopedic service to deal with your compression fracture. You need to contact them for a consult. Use the ketorolac, this is an anti-inflammatory, for your pain. I gave you a prescription for a muscle relaxant called methocarbamol, you can use this for sleep. It does cause drowsiness, you can not drive or operate machinery while using this medication. You were also treated for bronchitis. See home care instructions. Use your home inhalers as directed, take the steroid as directed, take the Z-Cody as directed. You may benefit from asking your primary care provider for a home nebulizer, so that you can administer your Respiratory medications to herself at home. [facility] [address] [place] [address] Prescriptions: New azithromycin 250 mg tablet 250 mg PO DAILY 4 Days Qty: 4 0RF Rx Instructions: start on day 2 of therapy prednisone 20 mg tablet 40 mg PO DAILY Qty: 8 0RF ketorolac 10 mg tablet 10 mg PO Q6H PRN (Reason: pain) Qty: 20 0RF Rx Instructions: maximum total duration of 5 days from all oral, intranasal, or parenteral formulations. The patient received an IV dose of Toradol here in the emergency department. methocarbamol 750 mg tablet 750 mg PO BEDTIME PRN (Reason: pain, moderate) Qty: 7 0RF No Action meclizine 12.5 mg tablet 12.5 mg PO TID PRN (Reason: dizziness) 20 Days Qty: 60 0RF albuterol sulfate [Ventolin HFA] 90 mcg/actuation HFA aerosol inhaler 2 puff inhalation Q6H PRN (Reason: shortness of breath or wheezing) Qty: 8.5 2RF Pulmicort Flexhaler 90 mcg/actuation aerosol powdr breath activated 1 inh inhalation Q12H Qty: 1 3RF Rx Instructions: rinse mouth out after each use Arnuity Ellipta 100 mcg/actuation blister with device 1 inh inhalation DAILY Qty: 90 1RF bisacodyl [Dulcolax (bisacodyl)] 5 mg tablet,delayed release (DR/EC) 20 mg PO ONCE 1 Days Qty: 4 0RF Rx Instructions: the day before colonoscopy take 2 pills at 12pm and 2 pills at 5pm with 8oz of water peg 3350-electrolytes 236-22.74-6.74 -5.86 gram recon soln 240 ml PO Q10M Qty: 4000 0RF Rx Instructions: Refer to prep instructions given/ mailed to you from GI OFFICE. until fecal effluent is clear aspirin 81 mg tablet,delayed release (DR/EC) 81 mg PO DAILY 90 Days Qty: 90 1RF metoprolol succinate 25 mg tablet extended release 24 hr 12.5 mg PO DAILY 90 Days Qty: 45 1RF atorvastatin 80 mg tablet 80 mg PO DAILY 90 Days Qty: 90 1RF levothyroxine 100 mcg tablet 100 mcg PO DAILY Qty: 90 1RF primidone 50 mg tablet 50 mg PO TID mirtazapine 45 mg tablet 45 mg PO BEDTIME clonazepam 0.5 mg tablet 0.5 mg PO DAILY PRN (Reason: Anxiety) sertraline 100 mg tablet 200 mg PO QAM zolpidem 10 mg tablet 10 mg PO BEDTIME divalproex 500 mg tablet extended release 24 hr 500 mg PO TID Patient Comments: Per patient she takes now 500 mg in the morning and 1000 mg at night peg 3350-electrolytes [Golytely] 236-22.74-6.74 -5.86 gram recon soln 240 ml PO Q10M 1 Days Qty: 4000 0RF Rx Instructions: until fecal effluent is clear; do not exceed a total volume of 2,000 mL bisacodyl [Dulcolax (bisacodyl)] 5 mg tablet,delayed release (DR/EC) 10 mg PO BEDTIME 2 Days Qty: 4 0RF lansoprazole 30 mg capsule,delayed release(DR/EC) 30 mg PO BID Qty: 180 2RF metoclopramide HCl 10 mg tablet 10 mg PO QID Qty: 120 6RF loperamide 2 mg capsule 2 mg PO Q6H PRN (Reason: loose stool) Qty: 120 3RF sucralfate [Carafate] 100 mg/mL suspension 20 ml PO QNOON Qty: 1000 1RF Interventions: ED Discharge Assessment Last Done: 10/21/24 22:40 Discharge Date/Time: 10/21/24 22:20 Print Language: Slovak
[2024-10-21 11:43] VITALS: BP 102/71; PULSE 73; RESP 18; TEMP 36.8; O2SAT 94; BMI 23.8
--- NOTE | 2024-10-21 11:48 | ECG_ITS ---
Test Reason : SOB Blood Pressure : */* mmHG Vent. Rate : 64 BPM Atrial Rate : 64 BPM P-R Int : 122 ms QRS Dur : 70 ms QT Int : 412 ms P-R-T Axes : 70 10 22 degrees QTcB Int : 425 ms Normal sinus rhythm Possible Left atrial enlargement Low voltage QRS Borderline ECG When compared with ECG of 06-Aug-2024 12:48, No significant change was found Referred By: Sherley Davis Electronically Signed By: Doroteo Velasco
[2024-10-21 12:37] LABS: MANUAL DIFF FLAG NO
[2024-10-21 12:39] LABS: Basophils Percent Auto 0.3 % (0-2); Eosinophils Percent Auto 0.1 % (0-4); Hematocrit 35.8 % (37.0-47.0); Hemoglobin 12.5 g/dl (12.0-16.0); Imm Gran Abs Auto 0.02 X10*3/uL (0.00-0.03); Imm Gran Pct Auto 0.3 % (0.0-0.4); Lymphocytes Absolute Auto 1.4 X10*3/uL (1.2-4.9); Lymphocytes Percent Auto 19.1 % (20-40); Mean Corpuscular HGB Conc 34.9 g/dl (31.0-35.0); Mean Corpuscular Hemoglobin 33.1 pg (27.0-33.0); Mean Corpuscular Volume 94.7 fL (80.0-98.0); Mean Platelet Volume 10.1 fL (9.4-12.3); Monocytes Absolute Auto 0.7 X10*3/uL (0.1-1.2); Monocytes Percent Auto 8.7 % (2-11); Neutrophils Absolute Auto 5.4 x10*3/uL (2.0-8.3); Neutrophils Percent Auto 71.5 % (45-73); Platelet Count 255 X10*3/uL (160-400); Red Blood Count 3.78 X10*6/uL (4.20-5.50); Red Cell Distribution Width 13.2 % (11.0-16.0); White Blood Count 7.5 X10*3/uL (4.8-10.8)
[2024-10-21 12:44] LABS: INTERNATIONAL NORM RATIO 1.1 (0.9-1.1); Prothrombin Time 12.4 SEC (10.9-12.4)
[2024-10-21 13:10] LABS: Alanine Aminotransferase 7 U/L (0-31); Albumin Level 3.4 g/dL (3.5-5.0); Alkaline Phosphatase 71 U/L (39-117); Anion Gap 10 (12-20); Aspartate Amino Transferase 21 U/L (5-31); Bilirubin Total 0.3 mg/dL (0.0-1.0); Blood Urea Nitrogen 5 mg/dL (9-16); Calcium 8.6 mg/dL (8.4-10.2); Carbon Dioxide 26 mmol/L (22-29); Chloride 108 mmol/L (96-108); Creatinine Clr Calc Pharmacy 60.5; Estimated Glomerular Filt Rate > 60; Glucose Random 75 mg/dL (60-115); Magnesium 1.4 mg/dL (1.6-2.6); Sodium 140 mmol/L (135-145)
[2024-10-21 13:15] LABS: Influenza A PCR NEGATIVE (Negative); Influenza B PCR NEGATIVE (Negative); Resp Syncy Virus RNA Qual PCR NEGATIVE (Negative); SARS COV2 PCR INHOUSE NEGATIVE (Negative)
[2024-10-21 19:21] VITALS: PULSE 63; RESP 16; TEMP 36.5; O2SAT 97
[2024-10-21] MEDS: Magnesium Sulfate/H2O 2 GM/50 ML PIGGYBACK IV (20:19)
[2024-10-21] MEDS: guaiFENesin DM 600/30 1 TAB TAB.ER.12H 2 TAB PO (20:19)
[2024-10-21] MEDS: Ketorolac Tromethamine 15 MG/ML VIAL IVPUSH (20:19)
[2024-10-21 20:21] VITALS: BP 136/82; PULSE 53; RESP 16; TEMP 36.4; O2SAT 95
--- NOTE | 2024-10-21 20:54 | PC.NURSE ---
Pt refusing to change in hospital [facility]
[2024-10-21] MEDS: Albuterol Sulfate 2.5 MG, Albuterol/Iprat 2.5/0.5MG 3 ML 3 ML INHALE (21:28)
[2024-10-21 21:31] VITALS: PULSE 57; RESP 18; O2SAT 95
[2024-10-21] MEDS: Azithromycin 500 MG TABLET PO (21:39)
[2024-10-21] MEDS: methylPREDNISolone Sod Succ 125 MG/2 ML VIAL IVPUSH (21:39)
[2024-10-21 22:40] VITALS: BP 116/65; PULSE 69; RESP 20; TEMP 36.7; O2SAT 95
[2024-10-22 04:19] LABS: B Type Natriuretic Peptide 282 pg/mL (<100)
== END 2024-10-21 22:20 | disposition home or self-care (01) ==
PROVIDERS: Nurse Practitioner Family; Emergency Provider Emergency Medicine Emergency Medical Services; PCP Nurse Practitioner Family
DX: J44.1 Chronic obstructive pulmonary disease with (acute) exacerbation (principal); J40 Bronchitis, not specified as acute or chronic; M48.56XA Collapsed vertebra, not elsewhere classified, lumbar region, initial encounter for fracture; R06.02 Shortness of breath; M54.50 Low back pain, unspecified; I10 Essential (primary) hypertension; F17.210 Nicotine dependence, cigarettes, uncomplicated; Z79.899 Other long term (current) drug therapy; Z03.818 Encounter for observation for suspected exposure to other biological agents ruled out
CPT/HCPCS: 0241U; 71046; 72100; 72131; 80053; 83735; 83880; 85025; 85610; 93005; 94640; 96365; 96375; 99284; 99285; J1885; J2919; J3475

== ENCOUNTER → 2024-10-21 11:48 | Outpatient (BNV) | payer MEDICARE, MEDICAID, SELFPAY | PROVIDERS: PCP Nurse Practitioner Family; Visit Provider Specialist | DX: M54.50 Low back pain, unspecified (principal); M41.35 Thoracogenic scoliosis, thoracolumbar region; R06.02 Shortness of breath; R53.1 Weakness | CPT/HCPCS: 71046; 72100 ==

== ENCOUNTER → 2024-10-21 11:48 | Outpatient (BNV) | payer MEDICARE, MEDICAID, SELFPAY | PROVIDERS: Emergency Provider Emergency Medicine Emergency Medical Services; PCP Nurse Practitioner Family; Visit Provider Internal Medicine Cardiovascular Disease | DX: R06.02 Shortness of breath (principal) | CPT/HCPCS: 93010 ==

== ENCOUNTER 2024-12-10 09:12 | Outpatient (AMB) | payer MEDICARE, MEDICAID, SELFPAY ==
[2024-12-10 09:15] VITALS: BP 118/60; PULSE 69; TEMP 36.4; O2SAT 92; BMI 23.1
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
--- OUTSIDE RECORDS SUMMARY | 2024-12-10 09:52 | XMS_ITS | Data Portability ---
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 She is here for a follow up . On exam, she has pain on flexion and a positive straight leg raising test on the left. MRI Lumbar Spine shows mild degenerative disc disease with facet arthropathy with mild foraminal stenosis at L4-5 level. At L5-S1 level, there is mild degenerative disc disease with right facet arthropathy. She is doing a home exercise program with persistent pain. I recommend a repeat lumbar epidural steroid injection under fluoroscopic guidance. The risks and benefits of the procedure were reviewed in detail. She wishes to proceed. An appointment has been made and she needs a bottom hoop driver on the day of the procedure. [email or web address] Not available 12/04/2018 10:07:23 12/19/2018 12/19/2018 Yuli Duke is a 53 year old woman with complaints of low back pain radiating into both lower extremities , left is greater than right. On exam, she has pain on flexion and a positive straight leg raising test. MRI Lumbar Spine shows mild degenerative disc disease with facet arthropathy with mild foraminal stenosis at L4-5 level. At L5-S1 level, there is mild degenerative disc disease with right facet arthropathy. She is doing a home exercise program with persistent pain. She is here for a repeat lumbar epidural steroid injection under fluoroscopic guidance. The risks and benefits of the procedure were reviewed in detail. She wishes to proceed. She needs to follow up in four weeks [email or web address] Not available 12/19/2018 10:58:16 08/04/2020 08/04/2020 Yuli Duke is a 52 year old woman with complaints of low back pain radiating into left lower extremity. This is a follow up . MRI Lumbar Spine shows mild degenerative disc disease with facet arthropathy with mild foraminal stenosis at L4-5 level. At L5-S1 level, there is mild degenerative disc disease with right facet arthropathy. She is doing a home exercise program with persistent pain. I recommend a repeat lumbar epidural steroid injection under fluoroscopic guidance. The risks and benefits of the procedure were reviewed in detail. She wishes to proceed. An appointment has been made and she needs a bottom hoop driver on the day of the procedure. [email or web address] Not available 08/04/2020 09:58:17 09/10/2020 09/10/2020 Yuli Duke is a 55 year old woman with complaints of low back pain radiating into both lower extremities , left is greater than right. On exam, she has pain on flexion and a positive straight leg raising test. MRI Lumbar Spine shows mild degenerative disc disease with facet arthropathy with mild foraminal stenosis at L4-5 level. At L5-S1 level, there is mild degenerative disc disease with right facet arthropathy. She is doing a home exercise program with persistent pain. She is here for a repeat lumbar epidural steroid injection under fluoroscopic guidance. The risks and benefits of the procedure were reviewed in detail. She wishes to proceed. She needs to follow up in four weeks [email or web address] Not available 09/10/2020 13:24:08 10/20/2020 10/20/2020 Yuli Duke is a 55 year old woman with complaints of low back pain radiating into right lower extremity. This is a follow up . MRI Lumbar Spine shows mild degenerative disc disease with facet arthropathy with mild foraminal stenosis at L4-5 level. At L5-S1 level, there is mild degenerative disc disease with right facet arthropathy. She is doing a home exercise program with persistent pain. I recommend a repeat lumbar epidural steroid injection in three months under fluoroscopic guidance. The risks and benefits of the procedure were reviewed in detail. She wishes to proceed. An appointment has been made and she needs a bottom hoop driver on the day of the procedure. She recently had hiatal hernia repair by Dr. Pena and will discuss with him when she can have a repeat steroid injection. [email or web address] Not available 10/20/2020 09:10:15 Plan of Treatment Reminders Order Date Submit Date Provider Last Modified By Organization Details Last Modified Time Details Appointments None record ed. Lab None record ed. Referral None record ed. Procedures None record ed. Surgeries None record ed. Imaging None record ed. Medication Orders None record ed. Patient TargetsNo targets recorded. Patient Instructions Encounter Date Encounter Id Patient Instructions Last Modified By Organization Details Last Modified Time 12/04/2018 [id number] She was advised to continue with activities as tolerated. [email or web address] Not available 12/04/2018 10:03:43 12/19/2018 [id number] She was advised to continue with activities as tolerated [email or web address] Not available 12/19/2018 10:40:55 08/04/2020 [id number] She was advised to continue with activities as tolerated. Telehealth visit: The patient was located at home for this telephone electronic visit and gave consent for this visit to be conducted via telehealth. 15 minutes was spent on this call and greater than 50% of the visit was spent on counseling and coordination of care. [email or web address] Not available 08/04/2020 09:57:58 09/10/2020 [id number] She was advised to continue with activities as tolerated [email or web address] Not available 09/10/2020 13:22:57 10/20/2020 [id number] She was advised to continue with activities as tolerated. Telehealth visit: The patient was located at home for this telephone electronic visit and gave consent for this visit to be conducted via telehealth. 15 minutes was spent on this call and greater than 50% of the visit was spent on counseling and coordination of care. [email or web address] Not available 10/20/2020 09:06:14 Reason for Referral None Reported. Problems Name Problem SNOMED Code Status Onset Date Resolution Date Notes Provider Name and Address Organization Details Recorded Time Degeneration of cervical intervertebral disc 78078776 Active Mora rascon MD [address] [place] [address] , [address], [facility] [place], [address], [place] [facility] 6 15:49:37 Muscle pain 46308712 Active Mora rascon MD [address] , [address], [place], [address], [place] [facility] 6 15:49:37 Cervical spondylosis without myelopathy 062237920 Active Mora rascon MD [address] , [address], [place], [address], [place] [facility] 6 15:49:37 Spinal stenosis of lumbar region 25620435 Active 2016 Mora rascon MD [address] , [address], [facility] [place], [address], [place] [facility] 7 09:23:41 Displacement of lumbar intervertebral disc without myelopathy 90142670 Active 2016 Mora rascon MD [address] , [address], [place], [address], [place] [facility] 7 09:23:42 Lumbosacral radiculitis 24885290 Active 2016 Mora rascon MD [address] , [address], [place], [address], [place] [facility] 7 09:23:46 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 Mora rascon MD [address] , [address], [place], [address], [place] [facility] 6 15:41:12 Shoulder joint pain 197196629 Active Mora rascon MD [address] , [address], [place], [address], [place] [facility] 6 15:41:12 Problem Notes None recorded. Procedures Surgical History Date Name Laterality Status Provider Name and Address Organization Details Recorded Time 09/10/20 20 Lumbar Epidural steroid injection under fluoroscopic guidance completed Mora Reilly MD [address] [facility] , [address], [place], [address], [place] [facility] 09/10/2020 13:23:36 12/20/19 19 Lumbar Epidural steroid injection under fluoroscopic guidance completed Mora Reilly MD [address] [facility] , [address], [place], [address], [place] [facility] 12/19/2018 10:41:30 02/29/20 18 Lumbar Epidural steroid injection under fluoroscopic guidance completed Mora Reilly MD [address] [facility] , [address], [place], [address], [place] [facility] 02/28/2018 15:56:59 09/21/20 17 Lumbar Epidural steroid injection under fluoroscopic guidance completed Mora Reilly MD [address] [facility] , [address], [place], [address], [place] [facility] 09/22/2017 08:35:14 07/27/20 17 Lumbar Epidural steroid injection under fluoroscopic guidance completed Mora Reilly MD [address] [facility] , [address], [place], [address], [place] [facility] 07/29/2017 08:55:44 07/30/20 16 Trigger Point Injections under ultrasound guidance completed Mora Reilly MD [address] [facility] , [address], [place], [address], [place] [facility] 08/14/2016 19:23:11 07/01/20 16 Costochondral steroid injection under ultrasound guidance. completed Mora Reilly MD [address] [facility] , [address], [place], [address], [place] [facility] 07/01/2016 09:57:07 06/17/20 16 Trigger Point Injections under ultrasound guidance completed Mora Reilly MD [address] [facility] , [address], [place], [address], [place] [facility] 06/19/2016 10:54:38 06/02/20 16 Trigger Point Injections under ultrasound guidance completed Mora Reilly MD [address] , [address], [place], [address], [place] [facility] 06/02/2016 15:50:51 08/13/20 15 Costochondral steroid injection under ultrasound guidance. completed Mora Reilly MD [address] , [address], [place], [address], [place] [facility] 08/14/2015 09:44:42 05/29/20 15 Costochondral steroid injection under ultrasound guidance. completed Mora Reilly MD [address] , [address], [place], [address], [place] [facility] 05/29/2015 12:01:41 02/26/20 15 Costochondral steroid injection under ultrasound guidance. completed Mora Reilly MD [address] , [address], [place], [address], [place] [facility] 02/25/2015 11:18:19 10/01/20 14 Costochondral steroid injection under ultrasound guidance. completed Mora Reilly MD [address] , [address], [place], [address], [place] [facility] 10/11/2014 15:19:47 09/03/20 14 Costochondral steroid injection under ultrasound guidance. completed Mora Reilly MD [address] , [address], [place], [address], [place] [facility] 09/03/2014 11:25:05 08/08/20 14 Costochondral steroid injection under ultrasound guidance. completed Mora Reilly MD [address] , [address], [place], [address], [place] [facility] 08/08/2014 15:58:12 02/20/20 13 Sacroiliac Joint Steroid Injections, using Fluoroscopy completed Mora Reilly MD [address] , [address], [place], [address], [place] [facility] 02/20/2013 09:59:03 11/20/19 13 Sacroiliac Joint Steroid Injections, using Fluoroscopy completed Mora Reilly MD [address] , [address], [place], [address], [place] [facility] 11/20/2012 15:55:16 10/18/19 13 Subacromial bursal injection completed oMra Reilly MD [address] , [address], [place], [address], [place] [facility] 10/19/2012 13:28:34 09/18/20 12 Sacroiliac Joint Steroid Injections, using Fluoroscopy completed Mora Reilly MD [address] , [address], [place], [address], [place] [facility] 09/19/2012 08:48:59 Other completed Denice Moses [place] [facility] 09/13/2012 11:07:04 Tubal Ligation completed Denice Smithzier [place] [facility] 09/13/2012 11:07:04 Tonsillectomy completed Denice Smithzier [place] [facility] 09/13/2012 11:07:04 Appendectomy completed Denicelinda SmithMoses [place] [facility] 09/13/2012 11:07:04 Imaging Results None recorded. Procedure Notes None recorded. Medical Equipment None Reported. Allergies Allergen ID Allergen Name Allergen Category Reaction Reaction Severity Criticality Documentation Date Start Date Code Code System Note Provider Name and Address Organization Details Recorded Time 78679 Keppra medicatio n Not available Not available Not available 05/29/2015 64268 7 RxNorm Sever e Menta tion issue s Denice Smithzier null, [place] [facility] 5 10:33:45 4281 morphine medicatio n Not available Not available Not available 09/13/2012 7052 RxNorm Swell ing Denice Smithzier null, [place] [facility] 2 10:58:56 4282 Dilantin medicatio n Not available Not available Not available 09/13/201281982 0 RxNorm Sever menta tion issue s Denice Moses null, [place] [facility] 2 10:58:56 Medications Name Sig Start Date Stop Date Status Note LastModified by Organization Details LastModified Time atorvastat in 40 mg tablet 02/28 completed Not Available Not Available Not Available primidone 50 mg tablet 12/04 completed Not Available Not Available Not Available atorvastat in 80 mg tablet active Not Available Not Available Not Available prednisone 10 mg tablet 08/04 completed Not Available Not Available Not Available gabapentin 600 mg tablet take 1 tablet by mouth three times a day active Not Available Not Available No t Available doxycyclin e hyclate 100 mg capsule 08/04 completed Not Available Not Available Not Available cefuroxime axetil 250 mg tablet take 1 tablet by mouth twice a day for 10 days active Not Available Not Available No t Available donepezil 5 mg tablet 02/28 completed Not Available Not Available Not Available divalproex 250 mg tablet,del ayed release 08/04 completed Not Available Not Available Not Available Pneumovax- 23 25 mcg/0.5 mL injection solution inject 0.5 millilit er intramus cularly active Not Available Not Available No t Available azithromyc in 250 mg tablet take 2 tablets by mouth on day 1 then 1 tablet on days 2 through 5 12/04 completed Not Available Not Available Not Available pravastati n 40 mg tablet take 1 tablet by mouth once daily 02/28 completed Not Available Not Available Not Available FreeStyle Lancets 28 gauge TEST once daily active Not Available Not Available No t Available isosorbide mononitrat e ER 30 mg tablet,ext ended release 24 hr 12/04 completed Not Available Not Available Not Available alendronat e 70 mg tablet take 1 tablet by mouth ONCE WEEKLY active Not Available Not Available No t Available clonazepam 0.5 mg tablet TAKE 1 TABLET BY MOUTH NEEDED FOR UP TO 30 DAYS active Not Available Not Available No t Available sertraline 100 mg tablet TAKE 2 TABLETS BY MOUTH DAILY active Not Available Not Available No t Available topiramate 25 mg tablet take 1 tablet by mouth at bedtime active Not Available Not Available No t Available aspirin 81 mg tablet,del ayed release TK 1 T PO D active Not Available Not Available No t Available tramadol 50 mg tablet 2 tabs at bedtime active Not Available Not Available No t Available quetiapine 100 mg tablet take 1 tablet by mouth at bedtime 07/07 completed Not Available Not Available Not Available levothyrox ine 75 mcg tablet 08/04 completed Not Available Not Available Not Available oxycodone- acetaminop hen 5 mg-325 mg tablet take 1 tablet by mouth every 4 hours if needed for pain active Not Available Not Available No t Available terbinafin e HCl 250 mg tablet take 1 tablet by mouth once daily for 3 MONTHS active Not Available Not Available No t Available levothyrox ine 88 mcg tablet TAKE 1 TABLET BY MOUTH EVERY MORNING ON AN EMPTY STOMACH active Not Available Not Available No t Available levetirace weiss 250 mg tablet take 1 tablet by mouth twice a day active Not Available Not Available No t Available levothyrox ine 50 mcg tablet take 1 tablet by mouth once daily 12/04 completed Not Available Not Available Not Available pantoprazo le 40 mg tablet,del ayed release active Not Available Not Available Not Available mirtazapin e 30 mg tablet 08/04 completed Not Available Not Available Not Available ferrous sulfate 325 mg (65 mg iron) tablet active Not Available Not Available Not Available divalproex ER 500 mg tablet,ext ended release 24 hr take 1 tablet by mouth at bedtime active Not Available Not Available No t Available bupropion HCl 75 mg tablet 07/07 completed Not Available Not Available Not Available nicotine 21 mg/24 hr daily transderma l patch 07/07 completed Not Available Not Available Not Available ibuprofen 200 mg tablet 1 tab at night active Not Available Not Available No t Available nitroglyce rin 0.4 mg sublingual tablet 08/04 completed Not Available Not Available Not Available gabapentin 300 mg capsule 3 tabs at bedtime active Not Available Not Available No t Available sertraline 25 mg tablet take 1 tablet by mouth once daily active Not Available Not Available No t Available omeprazole 20 mg capsule,de layed release take 1 capsule by mouth twice a day 30 MINUTES PRIOR TO BREAKFAS T AND SUPPER 12/04 completed Not Available Not Available Not Available mirtazapin e 45 mg tablet TAKE 1 TABLET BY MOUTH EVERY DAY AT BEDTIME active Not Available Not Available No t Available diclofenac sodium 75 mg tablet,del ayed release 08/04 completed Not Available Not Available Not Available Emla 2.5 %-2.5 % topical cream Apply topicall y to left anterior chest wall once one hour prior to procedur e. 2013 active Not Available Not Available Not Avai lable Proventil HFA 90 mcg/actuat ion aerosol inhaler Inhale 2 puffs every 4 hours by inhalati on route. active as needed Not Available Not Available Not Available zolpidem 5 mg tablet TAKE 1 TABLET BY MOUTH EVERY DAY AT BEDTIME NEEDED FOR INSOMNIA active Not Available Not Available No t Available mirtazapin e 15 mg tablet 12/19 completed Not Available Not Available Not Available metoprolol succinate ER 25 mg tablet,ext ended release 24 hr TAKE 1 TABLET BY MOUTH EVERY DAY active Not Available Not Available No t Available cefuroxime axetil 500 mg tablet take 1 tablet by mouth twice a day for 10 days active Not Available Not Available No t Available polyethyle ne glycol 3350 17 gram/dose oral powder take 1 TO 2 CAPFULS IN A FULL GLASS OF WATER OR JUICE AT BEDTIME IF CONSTIPA HERMINIA active Not Available Not Available No t Available ondansetro n 4 mg disintegra ting tablet DISSOLVE 1 TABLET ON THE TONGUE EVERY 8 HOURS NEEDED FOR NAUSEA AND VOMITING active Not Available Not Available No t Available fluticason e propionate 50 mcg/actuat ion nasal spray,susp ension instill 1 spray into each nostril once daily active Not Available Not Available No t Available sertraline 50 mg tablet take 1 tablet by mouth once daily active Not Available Not Available No t Available dicyclomin e 10 mg capsule take 1 to 2 capsules by mouth 30 MINUTES PRIOR TO MEALS FOR DIARRHEA TWICE DAILY FOR 30 DAYS active Not Available Not Available No t Available Hyosyne 0.125 mg/5 mL oral elixir 08/04 completed Not Available Not Available Not Available metoclopra mide 10 mg tablet TAKE 1 TABLET BY MOUTH THREE TIMES DAILY BEFORE MEALS active Not Available Not Available No t Available amoxicilli n 875 mg-potassi um clavulanat e 125 mg tablet take 1 tablet twice a day for 7 days 02/28 completed Not Available Not Available Not Available nicotine 7 mg/24 hr daily transderma l patch 07/07 completed Not Available Not Available Not Available oxycodone 5 mg tablet TAKE 1 TO 2 TABLET BY MOUTH EVERY 6 HOURS NEEDED FOR PAIN active Not Available Not Available No t Available divalproex ER 250 mg tablet,ext ended release 24 hr TAKE 1 TABLET BY MOUTH IN THE MORNING AND 2 TABLETS AT BEDTIME active Not Available Not Available No t Available FreeStyle Control solution USE DIRECTED TO TEST active Not Available Not Available No t Available bupropion HCl XL 150 mg 24 hr tablet, extended release 02/28 completed Not Available Not Available Not Available metoprolol tartrate 25 mg tablet Take 1 tablet every day by oral route. active Not Available Not Available No t Available Spiriva with HandiHaler 18 mcg and inhalation capsules inhale the contents of one capsule in the handihal er once daily active Not Available Not Available No t Available mirtazapin e 7.5 mg tablet 12/04 completed Not Available Not Available Not Available Central Aaron with Lutein 0.4 mg-300 mcg-250 mcg tablet take 1 tablet by mouth once daily active Not Available Not Available No t Available Calcium 600 daily active Not Available Not Available Not Available Aspir-81 daily 08/04 completed Not Available Not Available Not Available pravastati n 1 tab daily active Not Available Not Available No t Available Daily Multi-Joselin min daily active Not Available Not Available Not Available Ranexa 500 mg tablet,ext ended release 12/04 completed Not Available Not Available Not Available Chantix 0.5 mg tablet 12/04 completed Not Available Not Available Not Available quetiapine 50 mg tablet 07/07 completed Not Available Not Available Not Available Symbicort 160 mcg-4.5 mcg/actuat ion HFA aerosol inhaler 12/04 completed Not Available Not Available Not Available quetiapine ER 300 mg tablet,ext ended release 24 hr TAKE 1 TABLET BY MOUTH EVERY DAY AT BEDTIME active Not Available Not Available No t Available quetiapine ER 200 mg tablet,ext ended release 24 hr 12/04 completed Not Available Not Available Not Available Flector 1.3 % transderma l 12 hour patch APPLY 1 PATCH TRANSDER ALEXIS TWICE DAILY 07/30 completed Not Available Not Available Not Available trospium ER 60 mg capsule,ex tended release 24 hr take 1 capsule by mouth once daily 12/04 completed Not Available Not Available Not Available Voltaren 1 % topical gel Apply 1 g 3 times a day by topical route for 30 days. 2012 active Not Available Not Available Not Avai lable Travel Sickness (meclizine ) 25 mg chewable tablet chew and swallow 1 tablet by mouth once daily if needed 12/04 completed Not Available Not Available Not Available cholecalci ferol (vitamin D3) 50 mcg (2,000 unit) capsule TAKE 1 CAPSULE BY MOUTH ONCE DAILY WITH SUPPER. active Not Available Not Available No t Available quetiapine ER 150 mg tablet,ext ended release 24 hr 12/04 completed Not Available Not Available Not Available Daliresp 500 mcg tablet take 1 tablet by mouth daily 08/04 completed Not Available Not Available Not Available Chantix Continuing Month Box 1 mg tablet take as directed ON PACKAGE twice a day active Not Available Not Available No t Available Chantix Starting Month Box 0.5 mg (11)-1 mg (42) tablets in dose pack take as directed 07/07 completed Not Available Not Available Not Available Freestyle InsuLinx strips TEST once daily active Not Available Not Available No t Available lidocaine 5 % topical ointment active Not Available Not Available Not Available Freestyle InsuLinx meter active Not Available Not Available Not Available Afluria 2123-7473( PF) 45 mcg (15 mcg x 3)/0.5 mL intramuscu lar syringe inject 0.5 millilit er intramus cularly active Not Available Not Available No t Available Spiriva Respimat 2.5 mcg/actuat ion solution for inhalation 12/04 completed Not Available Not Available Not Available Fluvirin (PF) 45 mcg (15 mcg x 3)/0.5 mL IM syringe inject 0.5 millilit er intramus cularly active Not Available Not Available No t Available Afluria (PF) 45 mcg(15 mcg x 3)/0.5 mL intramuscu lar syringe inject 0.5 millilit er intramus cularly 07/07 completed Not Available Not Available Not Available Vitals Date Recorded Body height Heart rate Oxygen saturation Oxygen saturation in Arterial blood by Pulse oximetry Systolic blood pressure Diastolic blood pressure Provider Name and Address Organization Details Last Updated DateTime 9 144.78 cm 70 /min 97 % 97 % 141 mm[Hg] 88 mm[Hg] Denice Yeboah [facility] 9 09:27:59 Date Recorded Body height Heart rate Oxygen saturation Oxygen saturation in Arterial blood by Pulse oximetry Systolic blood pressure Diastolic blood pressure Provider Name and Address Organization Details Last Updated DateTime 9 144.78 cm 72 /min 98 % 98 % 124 mm[Hg] 85 mm[Hg] Denice Yeboah [facility] 9 08:39:14 Date Recorded Heart rate Oxygen saturation Oxygen saturation in Arterial blood by Pulse oximetry Systolic blood pressure Diastolic blood pressure Provider Name and Address Organization Details Last Updated DateTime 0 69 /min 96 % 96 % 154 mm[Hg] 96 mm[Hg] Connie rascon [place] - [facility] 0 13:01:58 Social History Question Answer Notes LastModified by Organizat ion Details LastModified Time Tobacco Smoking Status Current Every Day Smoker Not Available [employer] 07/25/2020 03:16:10 What Is Your Level Of Alcohol Consumption? None [id number] Information not available 07/25/2020 Are You Blind Or Do You Have Difficulty Seeing? No [id number] Information not available 07/25/2020 Are You Currently Employed? No [id number] Information not available 07/25/2020 Are You Deaf Or Do You Have Serious Difficulty Hearing? Yes [id number] Information not available 07/25/2020 Which Illicit Or Recreational Drugs Have You Used? No Sober X 4 1/2 Years [id number] Information not available 07/25/2020 Education 12 Some College Information not available 09/13/2012 What Is The Highest Grade Or Level Of School You Have Completed Or The Highest Degree You Have Received? 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 0 [id number] Information not available 07/25/2020 On Those Days That You Engage In Moderate To Strenuous Exercise, How Many Minutes, On Average, Do You Exercise? 2 [id number] Information not available 07/25/2020 How Hard Is It For You To Pay For The Very Basics Like Food, Housing, Medical Care, And Heating? [id number] Information not available 12/04/2018 Live Alone Or With Others? With Others House Mate Information not available 12/04/2018 Marital Status Informatio n not available 12/04/2018 What Was The Date Of Your Most Recent Tobacco Screening? 12/19/2018 [id number] Information not available 07/25/2020 Do You Feel Stressed (tense, Restless, Nervous, Or Anxious, Or Unable To Sleep At Night)? [id number] Information not available 07/25/2020 Sex: Unknown Functional Status Question Answer Note LastModified by Organizat ion Details LastModified Time Do you have difficulty walking or climbing stairs? Yes [id number] Information not available 07/25/2020 Do you have difficulty doing errands alone? Yes [id number] Information not available 07/25/2020 Do you have difficulty dressing or bathing? Yes Sometimes [id number] Information not available 07/25/2020 Mental Status Question Answer Note LastModified by Organization D etails LastModified Time Do you have difficulty concentrating, remembering or making decisions? Yes [id number] Information no t available 07/25/2020 Family History Nothing Reported. Medical History Condition Response Coronary Artery Disease Y COPD Y Migrane Y Diabetes Y Arthritis Y Seizures/Epilepsy Y GERD/Reflux Y High Cholesterol Y Hypertension Y Gynecological HistoryNo gynecological history recorded. Obstetrics History GPAL:G 0 P 0 0 0 0 Past Encounters Encounter ID Performer Location Encounter Start Date Encounter Closed Date Diagnosis/Indication Diagnosis SNOMED-CT Code Diagnosis ICD10 Code Diagnosis Note [id number] Mora Reilly MD PAIN OFFICE [address] [facility] [place] [address] 09/13/2012 10:32:36 09/13/2012 15:53:15 [id number] Mora Reilly MD PAIN OFFICE [address] [facility] [place] [address] 09/18/2012 14:40:11 09/18/2012 15:42:39 [id number] Mora Reilly MD PAIN OFFICE [address] [facility] [place] [address] 10/18/2012 13:03:22 10/18/2012 16:07:14 [id number] Mora Reilly MD PAIN OFFICE [address] [facility] [place] [address] 11/20/2012 12:53:54 11/20/2012 15:34:59 [id number] Denice Moses [facility] [address] [facility] [place] [address] 02/06/2013 10:05:10 02/06/2013 14:35:05 [id number] Mora Reilly MD [facility] PA[facility] [address] [place] [address] 02/19/2013 13:29:03 02/19/2013 15:51:22 [id number] Mora Reilly MD [facility] PA[facility] [address] [place] [address] 07/17/2014 08:10:56 07/30/2014 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 [facility] PA[facility]ICE [address] [place] [address] 08/08/2014 13:32:47 08/08/2014 15:59:34 Tietze's disease 55841272 [id number] [facility] [address] [facility] [place] [address] 09/03/2014 10:35:08 09/03/2014 11:26:47 Inflammation of sacroiliac joint 21453213 Tietze's disease 53468267 Shoulder joint pain 748075287 [id number] [facility] [address] [place] [address] 10/01/2014 09:40:42 10/11/2014 15:21:30 Inflammation of sacroiliac joint 80768265 Tietze's disease 25827482 Shoulder joint pain 571577081 [id number] [facility] [address] [place] [address] 12/04/2014 10:47:37 12/04/2014 13:15:12 Inflammation of sacroiliac joint 81058784 Tietze's disease 38294523 Shoulder joint pain 231576406 [id number] [facility] PA[facility] [address] [place] [address] 02/25/2015 08:34:47 02/25/2015 13:20:22 Inflammation of sacroiliac joint 07972876 Tietze's disease 16029987 Shoulder joint pain 383737987 [id number] [facility] [address] [place] [address] 05/29/2015 10:04:54 05/29/2015 12:03:12 Inflammation of sacroiliac joint 78266431 Tietze's disease 02473663 Shoulder joint pain 933310629 [id number] Mora Reilly MD [facility] PAIN OFFICE [address] [place] [address] 08/13/2015 13:06:44 08/14/2015 09:45:21 Inflammation of sacroiliac joint 70478554 M46.1 Tietze's disease 6938621 9 M94.0 Shoulder joint pain 2679 25227 M25.512 [id number] oMra Reilly MD [facility] PA[facility]ICE [address] [place] [address] 12/30/2015 12:55:59 12/30/2015 13:53:52 Inflammation of sacroiliac joint 64513993 M46.1 [id number] Mora Reilly MD [facility] [address] [facility] [place] [address] 06/02/2016 11:20:00 06/02/2016 15:51:02 Cervical spondylosis without myelopathy 806192337 M47.812 Muscle pain 42864472 M79 .1 Degenerati on of cervical intervertebral disc 40228215 M50.30 [id number] Mora Reilly MD [facility] PA[facility] [address] [facility] [place] [address] 06/17/2016 08:53:49 06/19/2016 11:01:16 Cervical spondylosis without myelopathy 472987147 M47.812 Muscle pain 20548184 M79 .1 Degenerati on of cervical intervertebral disc 93423507 M50.30 [id number] Mora Reilly MD [facility] PAIN [facility]ICE [address] [place] [address] 07/01/2016 09:26:06 07/01/2016 13:27:19 Inflammation of sacroiliac joint 10678682 M46.1 Tietze's disease 0875158 9 M94.0 Shoulder joint pain 2679 52689 M25.512 [id number] Mora Reilly MD PAIN OFFICE [address] [place] [address] 07/30/2016 09:08:52 08/22/2016 11:46:05 Cervical spondylosis without myelopathy 392769424 M47.812 Muscle pain 59461117 M79 .1 Degenerati on of cervical intervertebral disc 61723806 M50.30 [id number] Mora Reilly MD PAIN OFFICE [address] [place] [address] 07/07/2017 08:16:05 07/07/2017 09:24:56 Lumbosacral radiculitis 06477373 M54.17 Spinal abram nosis of lumbar region 09672687 M48.06 Displaceme nt of lumbar intervertebral disc without myelopathy 86052554 M51.26 Inflammati on of sacroiliac joint 11791277 M46.1 [id number] Mora Reilly MD PAIN OFFICE [address] [place] [address] 07/27/2017 09:52:38 07/29/2017 14:32:39 Lumbosacral radiculitis 01216576 M54.17 Spinal abram nosis of lumbar region 09641740 M48.062 Displaceme nt of lumbar intervertebral disc without myelopathy 77115451 M51.26 Inflammati on of sacroiliac joint 86494690 M46.1 [id number] Mora Reilly MD PAIN OFFICE [address] [place] [address] 08/29/2017 09:17:14 08/29/2017 10:31:46 Lumbosacral radiculitis 77113889 M54.17 Spinal abram nosis of lumbar region 09641201 M48.062 Displaceme nt of lumbar intervertebral disc without myelopathy 89744952 M51.26 Inflammati on of sacroiliac joint 32407781 M46.1 [id number] Mora Reilly MD PAIN OFFICE [address] [facility] [place] [place] [address] 09/21/2017 11:43:42 09/22/2017 09:27:57 Lumbosacral radiculitis 96228790 M54.17 Spinal abram nosis of lumbar region 65358043 M48.062 Displaceme nt of lumbar intervertebral disc without myelopathy 60953370 M51.26 Inflammati on of sacroiliac joint 56534285 M46.1 [id number] Mora Reilly MD PAIN OFFICE [address] [email or web address] [facility] [place] [address] 02/28/2018 13:30:09 02/28/2018 15:59:37 Lumbosacral radiculitis 96271181 M54.17 Spinal abram nosis of lumbar region 67762975 M48.062 Displaceme nt of lumbar intervertebral disc without myelopathy 04927292 M51.26 Inflammati on of sacroiliac joint 16917450 M46.1 [id number] Mora Reilly MD PAIN OFFICE [address] [email or web address] [facility] [place] [address] 12/04/2018 09:17:20 12/04/2018 10:07:57 Lumbosacral radiculitis 72723115 M54.17 Spinal abram nosis of lumbar region 29736890 M48.062 Displaceme nt of lumbar intervertebral disc without myelopathy 70713673 M51.26 Inflammati on of sacroiliac joint 21412488 M46.1 [id number] Mora Reilly MD PAIN OFFICE [address] [email or web address] [address] [facility] [place] [address] 12/19/2018 08:26:46 12/19/2018 10:59:08 Lumbosacral radiculitis 43985266 M54.17 Spinal abram nosis of lumbar region 53908238 M48.062 Displaceme nt of lumbar intervertebral disc without myelopathy 33625142 M51.26 Inflammati on of sacroiliac joint 66450620 M46.1 [id number] Mora Reilly MD PAIN OFFICE [address] [email or web address] [address] [facility] [place] [address] 08/04/2020 09:52:18 08/04/2020 13:06:36 Displacement of lumbar intervertebral disc without myelopathy 46668067 M51.26 Lumbosacra l radiculitis 67229598 M54.17 Spinal abram nosis of lumbar region 77500197 M48.062 Inflammati on of sacroiliac joint 74248789 M46.1 [id number] Mora Reilly MD [facility] PAIN OFF[facility] [address] [facility] [place] [address] 09/10/2020 12:51:41 09/10/2020 13:26:05 Lumbosacral radiculitis 71684629 M54.17 Spinal abram nosis of lumbar region 05153293 M48.062 Displaceme nt of lumbar intervertebral disc without myelopathy 36361507 M51.26 Inflammati on of sacroiliac joint 83616360 M46.1 [id number] Mora Reilly MD [facility] PAIN OFF[facility] [address] [facility] [place] [address] 10/20/2020 09:03:15 10/20/2020 09:11:00 Displacement of lumbar intervertebral disc without myelopathy 68167863 M51.26 Lumbosacra l radiculitis 82587519 M54.17 Spinal abram nosis of lumbar region 57667071 M48.062 Inflammati on of sacroiliac joint 48252367 M46.1 Health Concerns Section Related Observation LastModified by Organization Detai ls LastModified Time None Recorded Concern Status LastModified by Organization Details LastModified Time None Recorded Advance Directives Directive None Recorded Payers Encounter Date Sequence Insurance Name Policy Number Policy Marie Covered Member ID Marie Member ID Guarantor Name 12/04/2018 1 [place] [employer] Yuli A Bouthillette [id number] Yuli Bouthillette 12/19/2018 1 [place] [employer] Yuli A Bouthillette [id number] Yuli Bouthillette 08/04/2020 1 [place] [employer] Yuli A Bouthillette [id number] Yuli Bouthillette 09/10/2020 1 [place] [employer] Yuli A Bouthillette [id number] Yuli Bouthillette 10/20/2020 1 [place] [facility] Yuli Duke [id number] Yuli Duke Notes Date Note Type Note Provider Name and Address Organization Details Recorded Time 12/04/2018 text/html She is here for a follow up . She describes the pain as low back pain radiating into both lower extremities with numbness and tingling, right is greater than left. She states pain is greater with prolonged standing and sitting. Rest relieves the pain a little. She reports good pain benefit with last lumbar epidural steroid injection under fluoroscopic guidance on 02/2018. She has no history of bladder or bowel incontinence. Mora Reilly MD [address] [facility] , [address] [address], [place], [address], [facility] 12/04/2018 13:52:29 12/19/2018 text/html She is here for a repeat lumbar epidural steroid injection under fluoroscopic guidance. Mora Reilly MD [address] [address], [place], [address], [facility] 12/21/2018 10:09:19 08/04/2020 text/html She is here for a follow up . She describes the pain as low back pain radiating into both lower extremities with numbness and tingling, left is greater than right. She states pain is greater with prolonged standing and sitting. Rest relieves the pain a little. She reports good pain benefit with last lumbar epidural steroid injection under fluoroscopic guidance on 12/2018. She has no history of bladder or bowel incontinence. Mora Reilly MD [address] [facility] , [address], [place], [address], [facility] 08/05/2020 08:21:38 09/10/2020 text/html She is here for a lumbar epidural steroid injection under fluoroscopic guidance. Mora Reilly MD [address] [facility] , [facility] [address], [place], [address], [facility] - [facility] 09/11/2020 16:25:02 10/20/2020 text/html This is a follow up . She had a lumbar epidural steroid injection on 09/10/2020 and reports good relief of pain in her left lower extremity which is ongoing. She had hiatal hernia repair with Dr. Pena on 09/23/2020. She states she has a follow up appointment with him on the October. She describes the pain as low back pain radiating into right lower extremity. She states pain is greater with prolonged standing and sitting. Rest relieves the pain a little. She has no history of bladder or bowel incontinence. Mora Reilly MD [address] [place] [address] , [address], [place], [address], [facility] 10/20/2020 10:25:18 OBGyn Episode No OBEpisode recorded.
== END 2024-12-10 10:15 | disposition home or self-care (01) ==
PROVIDERS: PCP Nurse Practitioner Family; Visit Provider Nurse Practitioner Family
DX: Z00.00 Encounter for general adult medical examination without abnormal findings (principal); E55.9 Vitamin D deficiency, unspecified; Z78.0 Asymptomatic menopausal state; M16.0 Bilateral primary osteoarthritis of hip; E83.42 Hypomagnesemia

== ENCOUNTER → 2024-12-10 09:12 | Outpatient (BNVA) | payer MEDICARE, MEDICAID, SELFPAY | PROVIDERS: PCP Nurse Practitioner Family; Visit Provider Nurse Practitioner Family | DX: Z00.00 Encounter for general adult medical examination without abnormal findings (principal); M16.0 Bilateral primary osteoarthritis of hip; E83.42 Hypomagnesemia; Z78.0 Asymptomatic menopausal state | CPT/HCPCS: 96127; 99386 ==

== ENCOUNTER 2024-12-12 10:02 | Outpatient (REF) | payer MEDICARE, MEDICAID, SELFPAY ==
--- OUTSIDE RECORDS SUMMARY | 2024-12-12 11:48 | XMS_ITS | Data Portability ---
Author Organization [facility] [address] [facility] [address] [place] [address] Care Team Providers Care Construction Analyst Name Role Phone [facility] Primary Care Provider [phone] SILVESTRE CARY Referring Provider ANA GODINEZ Primary Care Provider [phone] Assessment Encounter Date Assessment Date Assessment LastModified [...] has been made and she needs a new car driver on the day of the procedure. [...] has been made and she needs a new car driver on the day of the procedure. [...] has been made and she needs a new car driver on the day of the procedure. [...] By Organization Details Last Modified Time 12/04/2018 [id number] She was advised to continue with activities as tolerated. [email or web address] Not available 12/04/2018 10:03:43 12/19/2018 [id number] She was advised to continue with activities as tolerated [email or web address] Not available 12/19/2018 10:40:55 08/04/2020 [id number] She was advised to continue with activities as tolerated. Telehealth visit: The patient was located at home for this telephone electronic visit and gave consent for this visit to be conducted via telehealth. 15 minutes was spent on this call and greater than 50% of the visit was spent on counseling and coordination of care. [email or web address] Not available 08/04/2020 09:57:58 09/10/2020 [id number] She was advised to continue with activities as tolerated [email or web address] Not available 09/10/2020 13:22:57 10/20/2020 05213 She was advised to continue with activities [...] Recorded Time Degeneration of cervical intervertebral disc 43602931 Active Mora rascon MD [address] [place] [address] , [address], [facility] [place], [address], [place] [facility] 6 15:49:37 Muscle pain 09254259 Active Mora rascon MD [address] , [address], [place], [place], [place] [facility] 6 15:49:37 Cervical spondylosis without myelopathy 646480762 Active Mora rascon MD [address] , [address], [place], [place], [place] [facility] 6 15:49:37 Spinal stenosis of lumbar region 13985807 Active 2016 Mora rascon MD [address] , [address], [facility] [place], [place], [place] [facility] 7 09:23:41 Displacement of lumbar intervertebral disc without myelopathy 56473254 Active 2016 Mora rascon MD [address] , [address], [place], [place], [place] [facility] 7 09:23:42 Lumbosacral radiculitis 47740066 Active 2016 Mora rascon MD [address] , [address], [place], [place], [place] [facility] 7 09:23:46 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 Mora rascon MD [address] , [address], [place], [place], [place] [facility] 6 15:41:12 Shoulder joint pain 454090533 Active Mora rascon MD [address] , [address], [place], [place], [place] [facility] 6 15:41:12 Problem Notes None recorded. Procedures Surgical History Date Name Laterality Status Provider Name and Address Organization Details Recorded Time 09/10/20 20 Lumbar Epidural steroid injection under fluoroscopic guidance completed Mora Reilly MD [address] [facility] , [address], [place], [address], [place] [facility] 09/10/2020 13:23:36 12/20/19 19 Lumbar Epidural steroid injection under fluoroscopic guidance completed Mora Reilly MD [address] [facility] , [address], [place], [address], [place] [facility] 12/19/2018 10:41:30 02/29/20 18 Lumbar Epidural steroid injection under fluoroscopic guidance completed Mora Reilly MD [address] [facility] , [address], [place], [address], [place] [facility] 02/28/2018 15:56:59 09/21/20 17 Lumbar Epidural steroid injection under fluoroscopic guidance completed Mora Reilly MD [address] [facility] , [address], [place], [address], [place] [facility] 09/22/2017 08:35:14 07/27/20 17 Lumbar Epidural steroid injection under fluoroscopic guidance completed Mora Reilly MD [address] [facility] , [address], [place], [address], [place] [facility] 07/29/2017 08:55:44 07/30/20 16 Trigger Point Injections under ultrasound guidance completed Mora Reilly MD [address] [facility] , [address], [place], [address], [place] [facility] 08/14/2016 19:23:11 07/01/20 16 Costochondral steroid injection under ultrasound guidance. completed Mora Reilly MD [address] [facility] , [address], [place], [address], [place] [facility] 07/01/2016 09:57:07 06/17/20 16 Trigger Point Injections under ultrasound guidance completed Mora Reilly MD [address] [facility] , [address], [place], [address], [place] [facility] 06/19/2016 10:54:38 06/02/20 16 Trigger Point Injections under ultrasound guidance completed Mora Reilly MD [address] , [address], [place], [address], [place] [facility] 06/02/2016 15:50:51 08/13/20 15 Costochondral steroid injection under ultrasound guidance. completed Mora Reilly MD [address] , [address], [place], [address], [place] [facility] 08/14/2015 09:44:42 05/29/20 15 Costochondral steroid injection under ultrasound guidance. completed Mora Reilly MD [address] , [address], [place], [address], [place] [facility] 05/29/2015 12:01:41 02/26/20 15 Costochondral steroid injection under ultrasound guidance. completed Mora Reilly MD [address] , [address], [place], [address], [place] [facility] 02/25/2015 11:18:19 10/01/20 14 Costochondral steroid injection under ultrasound guidance. completed Mora Reilly MD [address] , [address], [place], [address], [place] [facility] 10/11/2014 15:19:47 09/03/20 14 Costochondral steroid injection under ultrasound guidance. completed Mora Reilly MD [address] , [address], [place], [address], [place] [facility] 09/03/2014 11:25:05 08/08/20 14 Costochondral steroid injection under ultrasound guidance. completed Mora Reilly MD [address] , [address], [place], [address], [place] [facility] 08/08/2014 15:58:12 02/20/20 13 Sacroiliac Joint Steroid Injections, using Fluoroscopy completed Mora Reilly MD [address] , [address], [place], [address], [place] [facility] 02/20/2013 09:59:03 11/20/19 13 Sacroiliac Joint Steroid Injections, using Fluoroscopy completed Mora Reilly MD [address] , [address], [place], [address], [place] [facility] 11/20/2012 15:55:16 10/18/19 13 Subacromial bursal injection completed Mora Reilly MD [address] , [address], [place], [address], [place] [facility] 10/19/2012 13:28:34 09/18/20 12 Sacroiliac Joint Steroid Injections, using Fluoroscopy completed Mora Reilly MD [address] , [address], [place], [address], [place] [facility] 09/19/2012 [...] Name and Address Organization Details Recorded Time 01359 Keppra medicatio n Not available Not available Not available 05/29/2015 12982 7 RxNorm Sever e Menta tion issue s Denice Smithzier null, [place] [facility] 5 10:33:45 4281 morphine medicatio n Not available Not available Not available 09/13/2012 7052 RxNorm Swell ing Denice Smithzier null, [place] [facility] 2 10:58:56 4282 Dilantin medicatio n Not available Not available Not available 09/13/201269367 0 RxNorm Sever menta tion issue s [...] Not Available Not Available Not Available Afluria 2071-7890( PF) 45 mcg (15 mcg x 3)/0.5 [...] Is Your Level Of Alcohol Consumption? None [id number] Information not available 07/25/2020 Are You Blind Or Do You Have Difficulty Seeing? No [id number] Information not available 07/25/2020 Are You Currently Employed? No [id number] Information not available 07/25/2020 Are You Deaf Or Do You Have Serious Difficulty Hearing? Yes [id number] Information not available 07/25/2020 Which Illicit Or Recreational Drugs Have You Used? No Sober X 4 1/2 Years [id number] Information not available 07/25/2020 Education 12 Some College Information not available 09/13/2012 What Is The Highest Grade Or Level Of School You Have Completed Or The Highest Degree You Have Received? 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 0 [id number] Information not available 07/25/2020 On Those Days That You Engage In Moderate To Strenuous Exercise, How Many Minutes, On Average, Do You Exercise? 2 [id number] Information not available 07/25/2020 How Hard Is It For You To Pay For The Very Basics Like Food, Housing, Medical Care, And Heating? [id number] Information not available 12/04/2018 Live Alone Or With Others? With Others House Mate Information not available 12/04/2018 Marital Status Informatio n not available 12/04/2018 What Was The Date Of Your Most Recent Tobacco Screening? 12/19/2018 [id number] Information not available 07/25/2020 Do You Feel Stressed (tense, Restless, Nervous, Or Anxious, Or Unable To Sleep At Night)? [id number] [id number] Information not available 07/25/2020 Sex: Unknown Functional Status Question Answer Note LastModified by Organizat ion Details LastModified Time Do you have difficulty walking or climbing stairs? Yes [id number] Information not available 07/25/2020 Do you have difficulty doing errands alone? Yes [id number] Information not available 07/25/2020 Do you have difficulty dressing or bathing? Yes Sometimes [id number] Information not available 07/25/2020 Mental Status Question Answer Note LastModified by Organization D etails LastModified Time Do you have difficulty concentrating, remembering or making decisions? Yes [id number] Information no t available 07/25/2020 Family History Nothing Reported. Medical History Condition Response Diabetes Y Coronary Artery Disease Y Seizures/Epilepsy Y Migrane Y Arthritis Y High Cholesterol Y GERD/Reflux Y Hypertension Y COPD Y Gynecological HistoryNo gynecological history recorded. Obstetrics History GPAL:G 0 P 0 0 0 0 Past Encounters Encounter ID Performer Location Encounter Start Date Encounter Closed Date Diagnosis/Indication Diagnosis SNOMED-CT Code Diagnosis ICD10 Code Diagnosis Note [id number] Mora Reilly MD PAIN OFFICE [address] [facility] [place] [address] 09/13/2012 10:32:36 09/13/2012 15:53:15 [id number] Mora Reilly MD PAIN OFFICE [address] [facility] [place] [address] 09/18/2012 14:40:11 09/18/2012 15:42:39 [id number] Mora Reilly MD PAIN OFFICE [address] [facility] [place] [place] [address] 10/18/2012 13:03:22 10/18/2012 16:07:14 [id number] Mora Reilly MD PAIN OFFICE [address] [facility] [place] [place] [address] 11/20/2012 12:53:54 11/20/2012 15:34:59 [id number] Denice Moses [facility] PA[facility]ICE [address] [facility] [place] [address] 02/06/2013 10:05:10 02/06/2013 14:35:05 [id number] Mora Reilly MD [facility] PAIN OFFICE [address] [place] [address] 02/19/2013 13:29:03 02/19/2013 15:51:22 [id number] Mora Reilly MD [facility] PAIN OFFICE [address] [place] [address] 07/17/2014 08:10:56 07/30/2014 15:16:18 Tietze's disease 11569360 [id number] [facility] PA[facility] OFFICE [address] [place] [address] 08/08/2014 13:32:47 08/08/2014 15:59:34 Tietze's disease 33641907 [id number] [facility] PA[facility] [address] [facility] [place] [place] [address] 09/03/2014 10:35:08 09/03/2014 11:26:47 Inflammation of sacroiliac joint 95724629 Tietze's disease 14074809 Shoulder joint pain 415260809 [id number] [facility] PAIN OFFICE [address] [place] [address] 10/01/2014 09:40:42 10/11/2014 15:21:30 Inflammation of sacroiliac joint 62317253 Tietze's disease 07178135 Shoulder joint pain 402098774 [id number] [facility] PAIN OFFICE [address] [place] [address] 12/04/2014 10:47:37 12/04/2014 13:15:12 Inflammation of sacroiliac joint 48441818 Tietze's disease 71771171 Shoulder joint pain 486744500 [id number] [facility] PAIN OFFICE [address] [place] [address] 02/25/2015 08:34:47 02/25/2015 13:20:22 Inflammation of sacroiliac joint 50428770 Tietze's disease 89678905 Shoulder joint pain 337858628 [id number] [facility] PAIN OFFICE [address] [place] [address] 05/29/2015 10:04:54 05/29/2015 12:03:12 Inflammation of sacroiliac joint 03649605 Tietze's disease 81862758 Shoulder joint pain 889129689 [id number] Mora Reilly MD [facility] PAIN OFFICE [address] [place] [address] 08/13/2015 13:06:44 08/14/2015 09:45:21 Inflammation of sacroiliac joint 15571179 M46.1 Tietze's disease 8009665 9 M94.0 Shoulder joint pain 2679 35142 M25.512 [id number] Mora Reilly MD [facility] PAIN OFFICE [address] [place] [address] 12/30/2015 12:55:59 12/30/2015 13:53:52 Inflammation of sacroiliac joint 49288234 M46.1 [id number] Mora Reilly MD [facility] PAIN OFFICE [address] [place] [address] 06/02/2016 11:20:00 06/02/2016 15:51:02 Cervical spondylosis without myelopathy 264005615 M47.812 Muscle pain 98147391 M79 .1 Degenerati on of cervical intervertebral disc 26743959 M50.30 [id number] Mora Reilly MD [facility] PAIN OFFICE [address] [facility] [address] 06/17/2016 08:53:49 06/19/2016 11:01:16 Cervical spondylosis without myelopathy 785505674 M47.812 Muscle pain 25193406 M79 .1 Degenerati on of cervical intervertebral disc 41757863 M50.30 [id number] Mora Reilly MD [facility] PAIN OFFICE [address] [place] [address] 07/01/2016 09:26:06 07/01/2016 13:27:19 Inflammation of sacroiliac joint 59740501 M46.1 Tietze's disease 5726881 9 M94.0 Shoulder joint pain 2679 24561 M25.512 [id number] Mora Reilly MD PAIN OFFICE [address] [place] [address] 07/30/2016 09:08:52 08/22/2016 11:46:05 Cervical spondylosis without myelopathy 019768210 M47.812 Muscle pain 62061526 M79 .1 Degenerati on of cervical intervertebral disc 91323073 M50.30 [id number] Mora Reilly MD PAIN OFFICE [address] [place] [address] 07/07/2017 08:16:05 07/07/2017 09:24:56 Lumbosacral radiculitis 69414146 M54.17 Spinal abram nosis of lumbar region 57733852 M48.06 Displaceme nt of lumbar intervertebral disc without myelopathy 97968484 M51.26 Inflammati on of sacroiliac joint 47899996 M46.1 [id number] Mora Reilly MD PAIN OFFICE [address] [place] [address] 07/27/2017 09:52:38 07/29/2017 14:32:39 Lumbosacral radiculitis 93800430 M54.17 Spinal abram nosis of lumbar region 39418823 M48.062 Displaceme nt of lumbar intervertebral disc without myelopathy 29401769 M51.26 Inflammati on of sacroiliac joint 05862151 M46.1 [id number] Mora Reilly MD PAIN OFFICE [address] [place] [address] 08/29/2017 09:17:14 08/29/2017 10:31:46 Lumbosacral radiculitis 70687212 M54.17 Spinal abram nosis of lumbar region 33350689 M48.062 Displaceme nt of lumbar intervertebral disc without myelopathy 73836214 M51.26 Inflammati on of sacroiliac joint 76964049 M46.1 [id number] Mora Reilly MD PAIN OFFICE [address] [facility] [place] [address] 09/21/2017 11:43:42 09/22/2017 09:27:57 Lumbosacral radiculitis 48583948 M54.17 Spinal abram nosis of lumbar region 77899453 M48.062 Displaceme nt of lumbar intervertebral disc without myelopathy 96173465 M51.26 Inflammati on of sacroiliac joint 34767075 M46.1 [id number] Mora Reilly MD PAIN OFFICE [address] [employer] [facility] [place] [address] 02/28/2018 13:30:09 02/28/2018 15:59:37 Lumbosacral radiculitis 19298231 M54.17 Spinal abram nosis of lumbar region 71255791 M48.062 Displaceme nt of lumbar intervertebral disc without myelopathy 88248265 M51.26 Inflammati on of sacroiliac joint 83983203 M46.1 [id number] Mora Reilly MD PAIN OFFICE [address] [employer] [place] [address] 12/04/2018 09:17:20 12/04/2018 10:07:57 Lumbosacral radiculitis 56905198 M54.17 Spinal abram nosis of lumbar region 59953254 M48.062 Displaceme nt of lumbar intervertebral disc without myelopathy 86451354 M51.26 Inflammati on of sacroiliac joint 67913899 M46.1 [id number] Mora Reilly MD PAIN OFFICE [address] [employer] [address] [facility] [place] [address] 12/19/2018 08:26:46 12/19/2018 10:59:08 Lumbosacral radiculitis 83119769 M54.17 Spinal abram nosis of lumbar region 78037918 M48.062 Displaceme nt of lumbar intervertebral disc without myelopathy 80605172 M51.26 Inflammati on of sacroiliac joint 24952599 M46.1 [id number] Mora Reilly MD PAIN OFFICE [address] [employer] [address] [facility] [place] [address] 08/04/2020 09:52:18 08/04/2020 13:06:36 Displacement of lumbar intervertebral disc without myelopathy 87997321 M51.26 Lumbosacra l radiculitis 15675146 M54.17 Spinal abram nosis of lumbar region 11239301 M48.062 Inflammati on of sacroiliac joint 52443900 M46.1 [id number] Mora Reilly MD [facility] PAIN OFFICE [address] [facility] [address] 09/10/2020 12:51:41 09/10/2020 13:26:05 Lumbosacral radiculitis 85916147 M54.17 Spinal abram nosis of lumbar region 36497924 M48.062 Displaceme nt of lumbar intervertebral disc without myelopathy 77472185 M51.26 Inflammati on of sacroiliac joint 56640231 M46.1 [id number] Mora Reilly MD [facility] PAIN OFFICE [address] [facility] [address] 10/20/2020 09:03:15 10/20/2020 09:11:00 Displacement of lumbar intervertebral disc without myelopathy 71311637 M51.26 Lumbosacra l radiculitis 55490575 M54.17 Spinal abram nosis of lumbar region 93540212 M48.062 Inflammati on of sacroiliac joint 71586216 M46.1 Health Concerns Section Related Observation LastModified by Organization Detai ls LastModified Time None Recorded Concern Status LastModified by Organization Details LastModified Time None Recorded Advance Directives Directive None Recorded Payers Encounter Date Sequence Insurance Name Policy Number Policy Marie Covered Member ID Marie Member ID Guarantor Name 12/04/2018 1 [place] [employer] Yuli A Bouthillette [id number] Yuli Bouthillette 12/19/2018 1 [place] [employer] Yuli A Bouthillette [id number] Yuli Bouthillette 08/04/2020 1 [place] [employer] Yuli A Bouthillette [id number] Yuli Bouthillette 09/10/2020 1 [place] [employer] Yuli A Bouthillette [id number] Yuli Bouthillette 10/20/2020 1 [place] [facility] Yuli Duke [id number] 98 Yuli Duke Notes Date Note Type [...] or bowel incontinence. Mora Reilly MD [address] [facility] , [address] [address], [place], [address], [facility] - [facility] Management 12/04/2018 13:52:29 12/19/2018 text/html She is here for a repeat lumbar epidural steroid injection under fluoroscopic guidance. Mora Reilly MD [address] [address], [place], [address], [facility] - Pain Management 12/21/2018 10:09:19 08/04/2020 text/html [...] or bowel incontinence. Mora Reilly MD [address] [facility] , [address], [place], [address], [facility] - [facility] Management 08/05/2020 08:21:38 09/10/2020 text/html She is here for a lumbar epidural steroid injection under fluoroscopic guidance. Mora Reilly MD [address] [facility] , [facility] [address], [place], [address], [facility] - Pain Management 09/11/2020 16:25:02 10/20/2020 text/html [...] bladder or bowel incontinence. Mora Reilly MD [address] [place] [address] , [address], [place], [address], [facility] 10/20/2020 10:25:18 OBGyn Episode No OBEpisode recorded.
[2024-12-12 13:38] LABS: MANUAL DIFF FLAG NO
[2024-12-12 13:44] LABS: Basophils Percent Auto 0.8 % (0-2); Eosinophils Absolute Auto 0.1 X10*3/uL (0.0-0.4); Eosinophils Percent Auto 2.4 % (0-4); Hematocrit 41.2 % (37.0-47.0); Hemoglobin 13.5 g/dl (12.0-16.0); Imm Gran Abs Auto 0.01 X10*3/uL (0.00-0.03); Imm Gran Pct Auto 0.3 % (0.0-0.4); Lymphocytes Absolute Auto 1.4 X10*3/uL (1.2-4.9); Lymphocytes Percent Auto 36.2 % (20-40); Mean Corpuscular HGB Conc 32.8 g/dl (31.0-35.0); Mean Corpuscular Hemoglobin 30.8 pg (27.0-33.0); Mean Corpuscular Volume 94.1 fL (80.0-98.0); Mean Platelet Volume 10.9 fL (9.4-12.3); Monocytes Absolute Auto 0.5 X10*3/uL (0.1-1.2); Monocytes Percent Auto 12.4 % (2-11); Neutrophils Absolute Auto 1.8 x10*3/uL (2.0-8.3); Neutrophils Percent Auto 47.9 % (45-73); Platelet Count 199 X10*3/uL (160-400); Red Blood Count 4.38 X10*6/uL (4.20-5.50); Red Cell Distribution Width 14.2 % (11.0-16.0); White Blood Count 3.8 X10*3/uL (4.8-10.8)
[2024-12-12 14:12] LABS: Alanine Aminotransferase 8 U/L (0-31); Albumin Level 3.4 g/dL (3.5-5.0); Alkaline Phosphatase 86 U/L (39-117); Anion Gap 11 (12-20); Aspartate Amino Transferase 26 U/L (5-31); Bilirubin Total 0.3 mg/dL (0.0-1.0); Blood Urea Nitrogen 9 mg/dL (9-16); Calcium 8.6 mg/dL (8.4-10.2); Carbon Dioxide 30 mmol/L (22-29); Chloride 106 mmol/L (96-108); Cholesterol 119 mg/dL (<200); Estimated Glomerular Filt Rate > 60; Glucose Fasting 77 mg/dL (60-99); HDL Cholesterol 64 mg/dL (>40); LDL Cholesterol Calculated 47 mg/dL (<100); Magnesium 1.7 mg/dL (1.6-2.6); Potassium 4.6 mmol/L (3.3-5.1); Sodium 142 mmol/L (135-145); Total Protein 6.3 g/dL (6.5-8.0); Triglycerides 41 mg/dL (<150)
[2024-12-12 14:14] LABS: TSH reflex Free T4 0.49 uIU/mL (0.32-4.0); Vitamin D 25-OH Total 35.4 ng/mL (>30)
== END 2024-12-12 10:03 | disposition home or self-care (01) ==
LOC: HO.HMGCLDS 10:02
PROVIDERS: PCP Nurse Practitioner Family; Visit Provider Nurse Practitioner Family
DX: Z00.00 Encounter for general adult medical examination without abnormal findings (principal); Z13.6 Encounter for screening for cardiovascular disorders; E55.9 Vitamin D deficiency, unspecified
CPT/HCPCS: 36415; 80053; 80061; 82306; 83735; 84443; 85025

== ENCOUNTER 2024-12-17 00:24 | Outpatient (REF) | payer MEDICARE, MEDICAID, SELFPAY ==
--- OUTSIDE RECORDS SUMMARY | 2024-12-18 15:45 | XMS_ITS | Data Portability ---
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 [...] has been made and she needs a ups driver on the day of the procedure. [...] has been made and she needs a ups driver on the day of the procedure. [...] By Organization Details Last Modified Time 12/04/2018 [id number] She was advised to continue with activities as tolerated. [email or web address] Not available 12/04/2018 10:03:43 12/19/2018 [id number] She was advised to continue with activities as tolerated [email or web address] Not available 12/19/2018 10:40:55 08/04/2020 07512 She was advised to continue with activities as tolerated. Telehealth visit: The patient was located at home for this telephone electronic visit and gave consent for this visit to be conducted via telehealth. 15 minutes was spent on this call and greater than 50% of the visit was spent on counseling and coordination of care. [email or web address] Not available 08/04/2020 09:57:58 09/10/2020 [id number] She was advised to continue with activities as tolerated [email or web address] Not available 09/10/2020 13:22:57 10/20/2020 85563 She was advised to continue with activities [...] Recorded Time Degeneration of cervical intervertebral disc 32950237 Active Mora rascon MD [address] [place] [address] , [address], [facility] [place], [address], [place] [facility] 6 15:49:37 Muscle pain 40407520 Active Mora rascon MD [address] , [address], [place], [place], [place] [facility] 6 15:49:37 Cervical spondylosis without myelopathy 291847309 Active Mora rascon MD [address] , [address], [place], [place], [place] [facility] 6 15:49:37 Spinal stenosis of lumbar region 81238639 Active 2016 Mora rascon MD [address] , [address], [facility] [place], [place], [place] [facility] 7 09:23:41 Displacement of lumbar intervertebral disc without myelopathy 52171161 Active 2016 oMra rascon MD [address] , [address], [place], 9, [place] [facility] 7 09:23:42 Lumbosacral radiculitis 44466893 Active 2016 Mora rascon MD [address] , [address], [place], 9, [place] [facility] 7 09:23:46 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 Mora rascon MD [address] , [address], [place], [place], [place] [facility] 6 15:41:12 Shoulder joint pain 256685111 Active Mora rascon MD [address] , [address], [place], [address], [place] [facility] 6 15:41:12 Problem Notes None recorded. Procedures Surgical History Date Name Laterality Status Provider Name and Address Organization Details Recorded Time 09/10/20 20 Lumbar Epidural steroid injection under fluoroscopic guidance completed Mora Reilly MD [address] [facility] , [address], [place], [address], [place] [facility] 09/10/2020 13:23:36 12/20/19 19 Lumbar Epidural steroid injection under fluoroscopic guidance completed Mora Reilly MD [address] [facility] [address], [place], [address], [place] [facility] 12/19/2018 10:41:30 02/29/20 18 Lumbar Epidural steroid injection under fluoroscopic guidance completed Mora Reilly MD [address] [facility] , [address], [place], [address], [place] [facility] 02/28/2018 15:56:59 09/21/20 17 Lumbar Epidural steroid injection under fluoroscopic guidance completed Mora Reilly MD [address] [facility] , [address], [place], [address], [place] [facility] 09/22/2017 08:35:14 07/27/20 17 Lumbar Epidural steroid injection under fluoroscopic guidance completed Mora Reilly MD [address] [facility] , [address], [place], [address], [place] [facility] 07/29/2017 08:55:44 07/30/20 16 Trigger Point Injections under ultrasound guidance completed Mora Reilly MD [address] [facility] , [address], [place], [address], [place] [facility] 08/14/2016 19:23:11 07/01/20 16 Costochondral steroid injection under ultrasound guidance. completed Mora Reilly MD [address] [facility] , [address], [place], [address], [place] [facility] 07/01/2016 09:57:07 06/17/20 16 Trigger Point Injections under ultrasound guidance completed Mora Reilly MD [address] [facility] , [address], [place], [address], [place] [facility] 06/19/2016 10:54:38 06/02/20 16 Trigger Point Injections under ultrasound guidance completed Mora Reilly MD [address] , [address], [place], [address], [place] [facility] 06/02/2016 15:50:51 08/13/20 15 Costochondral steroid injection under ultrasound guidance. completed Mora Reilly MD [address] , [address], [place], [address], [place] [facility] 08/14/2015 09:44:42 05/29/20 15 Costochondral steroid injection under ultrasound guidance. completed Mora Reilly MD [address] , [address], [place], [address], [place] [facility] 05/29/2015 12:01:41 02/26/20 15 Costochondral steroid injection under ultrasound guidance. completed Mora Reilly MD [address] , [address], [place], [address], [place] [facility] 02/25/2015 11:18:19 10/01/20 14 Costochondral steroid injection under ultrasound guidance. completed Mora Reilly MD [address] , [address], [place], [address], [place] [facility] 10/11/2014 15:19:47 09/03/20 14 Costochondral steroid injection under ultrasound guidance. completed Mora Reilly MD [address] , [address], [place], [address], [place] [facility] 09/03/2014 11:25:05 08/08/20 14 Costochondral steroid injection under ultrasound guidance. completed Mora Reilly MD [address] , [address], [place], [address], [place] [facility] 08/08/2014 15:58:12 02/20/20 13 Sacroiliac Joint Steroid Injections, using Fluoroscopy completed Mora Reilly MD [address] , [address], [place], [address], [place] [facility] 02/20/2013 09:59:03 11/20/19 13 Sacroiliac Joint Steroid Injections, using Fluoroscopy completed Mora Reilly MD [address] , [address], [place], [address], [place] [facility] 11/20/2012 15:55:16 10/18/19 13 Subacromial bursal injection completed Mora Reilly MD [address] , [address], [place], [address], [place] [facility] 10/19/2012 13:28:34 09/18/20 12 Sacroiliac Joint Steroid Injections, using Fluoroscopy completed Mora Reilly MD [address] , [address], [place], [address], [place] [facility] 09/19/2012 [...] Name and Address Organization Details Recorded Time 83593 Keppra medicatio n Not available Not available Not available 05/29/2015 59622 7 RxNorm Sever e Menta tion issue s Denice Smithzier null, [place] [facility] 5 10:33:45 4281 morphine medicatio n Not available Not available Not available 09/13/2012 7052 RxNorm Swell ing Denice Smithzier null, [place] [facility] 2 10:58:56 4282 Dilantin medicatio n Not available Not available Not available 09/13/201252384 0 RxNorm Sever menta tion issue s [...] Not Available Not Available Not Available Afluria 9188-7791( PF) 45 mcg (15 mcg x 3)/0.5 [...] saturation in Arterial blood by Pulse oximetry Pain severity - 0-10 verbal numeric rating [Score] - Reported Systolic blood pressure Diastolic blood pressure Provider Name and Address Organization Details Last Updated DateTime 0 69 /min 96 % 96 % 10 154 mm[Hg] 96 mm[Hg] Connie rascon [place] [facility] 0 13:01:58 Social History Question Answer Notes LastModified by Organizat ion Details LastModified Time Tobacco Smoking Status Current Every Day Smoker [facility] 07/25/2020 03:16:10 What Is Your Level Of Alcohol Consumption? None [id number] Information not available 07/25/2020 Are You Blind Or Do You Have Difficulty Seeing? No [id number] Information not available 07/25/2020 Are You Currently Employed? No [id number] Information not available 07/25/2020 Are You Deaf Or Do You Have Serious Difficulty Hearing? Yes [id number] Information not available 07/25/2020 Which Illicit Or Recreational Drugs Have You Used? No Sober X 4 1/2 Years [id number] Information not available 07/25/2020 Education 12 Some College Information not available 09/13/2012 What Is The Highest Grade Or Level Of School You Have Completed Or The Highest Degree You Have Received? 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 0 [id number] Information not available 07/25/2020 On Those Days That You Engage In Moderate To Strenuous Exercise, How Many Minutes, On Average, Do You Exercise? 2 [id number] Information not available 07/25/2020 How Hard Is It For You To Pay For The Very Basics Like Food, Housing, Medical Care, And Heating? [id number] Information not available 12/04/2018 Live Alone Or With Others? With Others House Mate Information not available 12/04/2018 Marital Status Informatio n not available 12/04/2018 What Was The Date Of Your Most Recent Tobacco Screening? 12/19/2018 [id number] Information not available 07/25/2020 Do You Feel Stressed (tense, Restless, Nervous, Or Anxious, Or Unable To Sleep At Night)? [id number] [id number] Information not available 07/25/2020 Sex: Unknown Functional Status Question Answer Note LastModified by Organizat ion Details LastModified Time Do you have difficulty walking or climbing stairs? Yes [id number] Information not available 07/25/2020 Do you have difficulty doing errands alone? Yes [id number] Information not available 07/25/2020 Do you have difficulty dressing or bathing? Yes Sometimes [id number] Information not available 07/25/2020 Mental Status Question Answer Note LastModified by Organization D etails LastModified Time Do you have difficulty concentrating, remembering or making decisions? Yes [id number] Information no t available 07/25/2020 Family History [...] SNOMED-CT Code Diagnosis ICD10 Code Diagnosis Note [id number] Mora Reilly MD PAIN OFFICE [address] [facility] [place] [address] 09/13/2012 10:32:36 09/13/2012 15:53:15 03760 Mora Reilly MD PAIN OFFICE [address] [facility] [place] [address] 09/18/2012 14:40:11 09/18/2012 15:42:39 95830 Mora Reilly MD PAIN OFFICE [address] [place] [address] 10/18/2012 13:03:22 10/18/2012 16:07:14 38740 Mora Reilly MD PAIN OFFICE [address] [facility] [place] [address] 11/20/2012 12:53:54 11/20/2012 15:34:59 94947 Denice Moses [facility] PA[facility] OFFICE [address] [place] [address] 02/06/2013 10:05:10 02/06/2013 14:35:05 31769 Mora Reilly MD SV PAIN OFFICE [address] [place] [address] 02/19/2013 13:29:03 02/19/2013 15:51:22 37717 Mora Reilly MD SV PAIN OFFICE [address] [place] [address] 07/17/2014 08:10:56 07/30/2014 15:16:18 Tietze's disease 55748706 59492 [facility] PAIN OFFICE [address] [place] [address] 08/08/2014 13:32:47 08/08/2014 15:59:34 Tietze's disease 69572957 38514 [facility] PAIN OFFICE [address] [place] [address] 09/03/2014 10:35:08 09/03/2014 11:26:47 Inflammation of sacroiliac joint 43038376 Tietze's disease 49192729 Shoulder joint pain 661659072 10977 [facility] PAIN OFFICE [address] [place] [address] 10/01/2014 09:40:42 10/11/2014 15:21:30 Inflammation of sacroiliac joint 99841286 Tietze's disease 75973072 Shoulder joint pain 662399782 43968 [facility] PAIN OFFICE [address] [facility] [place] [address] 12/04/2014 10:47:37 12/04/2014 13:15:12 Inflammation of sacroiliac joint 08575837 Tietze's disease 26453632 Shoulder joint pain 823724346 29170 [facility] PA[facility] [address] [facility] [place] [address] 02/25/2015 08:34:47 02/25/2015 13:20:22 Inflammation of sacroiliac joint 30614202 Tietze's disease 08495556 Shoulder joint pain 397019063 76718 SV PAIN OFFICE [address] [place] [address] 05/29/2015 10:04:54 05/29/2015 12:03:12 Inflammation of sacroiliac joint 38489589 Tietze's disease 42459591 Shoulder joint pain 421165229 49468 Mora Reilly MD SV PAIN OFFICE [address] [place] [address] 08/13/2015 13:06:44 08/14/2015 09:45:21 Inflammation of sacroiliac joint 07310370 M46.1 Tietze's disease 1185866 9 M94.0 Shoulder joint pain 2679 60998 M25.512 54809 Mora Reilly MD [facility] PAIN OFFICE [address] [place] [address] 12/30/2015 12:55:59 12/30/2015 13:53:52 Inflammation of sacroiliac joint 17749791 M46.1 05392 Mroa Reilly MD SV PAIN OFFICE [address] [facility] [place] [address] 06/02/2016 11:20:00 06/02/2016 15:51:02 Cervical spondylosis without myelopathy 945013513 M47.812 Muscle pain 02110898 M79 .1 Degenerati on of cervical intervertebral disc 83230715 M50.30 51890 Mora Reilly MD [facility] PAIN OFFICE [address] [facility] [place] [address] 06/17/2016 08:53:49 06/19/2016 11:01:16 Cervical spondylosis without myelopathy 097470684 M47.812 Muscle pain 11216020 M79 .1 Degenerati on of cervical intervertebral disc 92915623 M50.30 96424 Mora Reilly MD PAIN OFFICE [address] [facility] [place] [address] 07/01/2016 09:26:06 07/01/2016 13:27:19 Inflammation of sacroiliac joint 83156434 M46.1 Tietze's disease 9976487 9 M94.0 Shoulder joint pain 2679 05915 M25.512 96935 Mora Reilly MD PAIN OFFICE [address] [place] [address] 07/30/2016 09:08:52 08/22/2016 11:46:05 Cervical spondylosis without myelopathy 136339516 M47.812 Muscle pain 74210910 M79 .1 Degenerati on of cervical intervertebral disc 10405857 M50.30 41128 Mora Reilly MD PAIN OFFICE [address] [place] [address] 07/07/2017 08:16:05 07/07/2017 09:24:56 Lumbosacral radiculitis 82952017 M54.17 Spinal arbam nosis of lumbar region 75855864 M48.06 Displaceme nt of lumbar intervertebral disc without myelopathy 69656969 M51.26 Inflammati on of sacroiliac joint 85336477 M46.1 05770 Mora Reilly MD PAIN OFFICE [address] [place] [address] 07/27/2017 09:52:38 07/29/2017 14:32:39 Lumbosacral radiculitis 46950282 M54.17 Spinal abram nosis of lumbar region 49835422 M48.062 Displaceme nt of lumbar intervertebral disc without myelopathy 83428031 M51.26 Inflammati on of sacroiliac joint 35037529 M46.1 61594 Mora Reilly MD [facility] PAIN OFFICE [address] [place] [address] 08/29/2017 09:17:14 08/29/2017 10:31:46 Lumbosacral radiculitis 82682643 M54.17 Spinal abram nosis of lumbar region 88689288 M48.062 Displaceme nt of lumbar intervertebral disc without myelopathy 79695929 M51.26 Inflammati on of sacroiliac joint 10389604 M46.1 44679 Mora Reilly MD [facility] PAIN OFFICE [address] [place] [address] 09/21/2017 11:43:42 09/22/2017 09:27:57 Lumbosacral radiculitis 62156100 M54.17 Spinal abram nosis of lumbar region 52032622 M48.062 Displaceme nt of lumbar intervertebral disc without myelopathy 84605163 M51.26 Inflammati on of sacroiliac joint 19173948 M46.1 07766 Mora Reilly MD PAIN OFFICE [address] [place] [address] 02/28/2018 13:30:09 02/28/2018 15:59:37 Lumbosacral radiculitis 30386292 M54.17 Spinal abram nosis of lumbar region 06630086 M48.062 Displaceme nt of lumbar intervertebral disc without myelopathy 00468254 M51.26 Inflammati on of sacroiliac joint 39846564 M46.1 86935 Mora Reilly MD PAIN OFFICE [address] [place] [address] 12/04/2018 09:17:20 12/04/2018 10:07:57 Lumbosacral radiculitis 69834419 M54.17 Spinal abram nosis of lumbar region 80740407 M48.062 Displaceme nt of lumbar intervertebral disc without myelopathy 18721400 M51.26 Inflammati on of sacroiliac joint 09826293 M46.1 26321 Mora Reilly MD PAIN OFFICE [address] [place] [address] 12/19/2018 08:26:46 12/19/2018 10:59:08 Lumbosacral radiculitis 32973471 M54.17 Spinal abram nosis of lumbar region 64291422 M48.062 Displaceme nt of lumbar intervertebral disc without myelopathy 23930872 M51.26 Inflammati on of sacroiliac joint 02521924 M46.1 79242 Mora Reilly MD PAIN OFFICE [address] [place] [address] 08/04/2020 09:52:18 08/04/2020 13:06:36 Displacement of lumbar intervertebral disc without myelopathy 53044927 M51.26 Lumbosacra l radiculitis 44170666 M54.17 Spinal abram nosis of lumbar region 23851847 M48.062 Inflammati on of sacroiliac joint 29816003 M46.1 18220 Mora Reilly MD [facility] PAIN OFFICE [address] [facility] [address] 09/10/2020 12:51:41 09/10/2020 13:26:05 Lumbosacral radiculitis 53569580 M54.17 Spinal abram nosis of lumbar region 79064282 M48.062 Displaceme nt of lumbar intervertebral disc without myelopathy 14177792 M51.26 Inflammati on of sacroiliac joint 74629658 M46.1 44157 Mora Reilly MD SV PAIN OFFICE [address] [facility] [address] 10/20/2020 09:03:15 10/20/2020 09:11:00 Displacement of lumbar intervertebral disc without myelopathy 65615486 M51.26 Lumbosacra l radiculitis 80667531 M54.17 Spinal abram nosis of lumbar region 61255060 M48.062 Inflammati on of sacroiliac joint 93130365 M46.1 Health Concerns Section Related Observation LastModified by Organization Detai ls LastModified Time None Recorded Concern Status LastModified by Organization Details LastModified Time None Recorded Advance Directives Directive None Recorded Payers Encounter Date Sequence Insurance Name Policy Number Policy Marie Covered Member ID Marie Member ID Guarantor Name 12/04/2018 1 [place] [employer] Yuli A Bouthillette [id number] Yuli Bouthillette 12/19/2018 1 [place] [employer] Yuli A Bouthillette [id number] Yuli Bouthillette 08/04/2020 1 [place]: [employer] Yuli A Bouthillette [id number] Yuli Bouthillette 09/10/2020 1 [place] [facility] Yuli Odell Bouthillette [id number] Yuli Smithhillette 10/20/2020 1 [place]IC[place]: [facility] Yuli Odell Bouthillette [id number] Yuli Joelette Notes Date Note Type Note Provider Name [...] or bowel incontinence. Mora Reilly MD [address] [address], [place], [address], [facility] - Pain Management 12/04/2018 13:52:29 12/19/2018 text/html She is here for a repeat lumbar epidural steroid injection under fluoroscopic guidance. Mora Reilly MD [address] [address], [place], [address], [facility] Pain Management 12/21/2018 10:09:19 08/04/2020 text/html She [...] or bowel incontinence. Mora Reilly MD [address] [facility] [address] [address], [place], [address], [facility] - Pain Management 08/05/2020 08:21:38 09/10/2020 text/html She is here for a lumbar epidural steroid injection under fluoroscopic guidance. Mora Reilly MD [address] [address], [place], [address], [facility] Pain Management 09/11/2020 16:25:02 10/20/2020 text/html This [...] or bowel incontinence. Mora Reilly MD [address] [facility] , [address], [place], [address], [facility] Pain Management 10/20/2020 10:25:18 OBGyn Episode No OBEpisode recorded.
[2024-12-18 17:01] LABS: Appearance Urine Cloudy; Color Urine Yellow; Glucose Urine UA Negative (Negative); Leukocyte Esterase Urine Moderate (2+) (Negative); Nitrite Urine Negative (Negative); PH 6.5 (5.0-9.0); UMIC TRIGGER UACC YES; Urine Blood Negative (Negative); Urine Ketones Trace mg/dL (Negative); Urine Protein Negative (Neg-Trace)
[2024-12-18 17:19] LABS: Bacteria Urine Trace (None Seen); Calcium Oxalate Crystals Urine Present; Hyaline Casts Urine 0-2 /LPF (0-2); RBC Urine 0-2 /HPF (0-2); UACC Culture Trigger YES; WBC Urine 21-50 /HPF (0-5)
== END 2024-12-17 00:25 | disposition home or self-care (01) ==
LOC: HO.HMGCLNP 00:24
PROVIDERS: PCP Nurse Practitioner Family; Visit Provider Nurse Practitioner Family
DX: Z00.00 Encounter for general adult medical examination without abnormal findings (principal); R82.90 Unspecified abnormal findings in urine
CPT/HCPCS: 81001; 81003; 87086

== ENCOUNTER 2025-01-08 11:12 | Outpatient (REF) | payer MEDICARE, MEDICAID, SELFPAY ==
[2025-01-08 13:13] LABS: MANUAL DIFF FLAG NO
[2025-01-08 13:26] LABS: Basophils Percent Auto 0.6 % (0-2); Eosinophils Absolute Auto 0.1 X10*3/uL (0.0-0.4); Hematocrit 39.7 % (37.0-47.0); Hemoglobin 13.1 g/dl (12.0-16.0); Imm Gran Abs Auto 0.03 X10*3/uL (0.00-0.03); Imm Gran Pct Auto 0.6 % (0.0-0.4); Lymphocytes Absolute Auto 1.4 X10*3/uL (1.2-4.9); Lymphocytes Percent Auto 28.3 % (20-40); Mean Corpuscular Hemoglobin 31.1 pg (27.0-33.0); Mean Corpuscular Volume 94.3 fL (80.0-98.0); Mean Platelet Volume 11.1 fL (9.4-12.3); Monocytes Absolute Auto 0.6 X10*3/uL (0.1-1.2); Monocytes Percent Auto 11.5 % (2-11); Neutrophils Absolute Auto 2.9 x10*3/uL (2.0-8.3); Platelet Count 203 X10*3/uL (160-400); Red Blood Count 4.21 X10*6/uL (4.20-5.50); Red Cell Distribution Width 15.5 % (11.0-16.0); White Blood Count 5.1 X10*3/uL (4.8-10.8)
--- OUTSIDE RECORDS SUMMARY | 2025-01-08 13:31 | XMS_ITS | Data Portability ---
Author Organization [facility] [address] [facility] [address] [place] [address] Care Team Providers Care Voice Network Administrator Name Role Phone [facility] Primary Care Provider [phone] SILVESTRE CARY Referring Provider ANA GODINEZ Primary Care Provider Assessment Encounter [...] has been made and she needs a bus driver on the day of the procedure. [...] has been made and she needs a bus driver on the day of the procedure. [...] has been made and she needs a bus driver on the day of the procedure. [...] By Organization Details Last Modified Time 12/04/2018 86127 She was advised to continue with activities as tolerated. [email or web address] Not available 12/04/2018 10:03:43 12/19/2018 04129 She was advised to continue with activities as tolerated [email or web address] Not available 12/19/2018 10:40:55 08/04/2020 [id number] She was advised to continue with activities as tolerated. Telehealth visit: The patient was located at home for this telephone electronic visit and gave consent for this visit to be conducted via telehealth. 15 minutes was spent on this call and greater than 50% of the visit was spent on counseling and coordination of care. [email or web address] Not available 08/04/2020 09:57:58 09/10/2020 33336 She was advised to continue with activities as tolerated [email or web address] Not available 09/10/2020 13:22:57 10/20/2020 61596 She was advised to continue with activities [...] Recorded Time Degeneration of cervical intervertebral disc 35346904 Active Mora rascon MD [address] [place] [address] , [address], [facility] [place], [address], [place] [facility] 6 15:49:37 Muscle pain 12667494 Active Mora rascon MD [address] , [address], [place], 9, [place] [facility] 6 15:49:37 Cervical spondylosis without myelopathy 469170840 Active Mora rascon MD [address] , [address], [place], 9, [place] [facility] 6 15:49:37 Spinal stenosis of lumbar region 07325958 Active 2016 Moar rascon MD [address] , [address], [facility] [place], 9, [place] [facility] 7 09:23:41 Displacement of lumbar intervertebral disc without myelopathy 79039128 Active 2016 Mora rascon MD [address] , [address], [place], 9, [place] [facility] 7 09:23:42 Lumbosacral radiculitis 36720538 Active 2016 Mora rascon MD [address] , [address], [place], 9, [place] [facility] 7 09:23:46 Tietze's disease 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 Mora rascon MD [address] , [address], [place], 9, [place] [facility] 6 15:41:12 Shoulder joint pain 559194845 Active Mora rascon MD [address] , [address], [place], 9, [place] [facility] 6 15:41:12 Problem Notes None recorded. Procedures Surgical History Date Name Laterality Status Provider Name and Address Organization Details Recorded Time 09/10/20 20 Lumbar Epidural steroid injection under fluoroscopic guidance completed Mora Reilly MD [address] [facility] , [address], [place], [address], [place] [facility] 09/10/2020 13:23:36 12/20/19 19 Lumbar Epidural steroid injection under fluoroscopic guidance completed Mora Reilly MD [address] [facility] , [address], [place], [address], [place] [facility] 12/19/2018 10:41:30 02/29/20 18 Lumbar Epidural steroid injection under fluoroscopic guidance completed Mora Reilly MD [address] [facility] , [address], [place], [address], [place] [facility] 02/28/2018 15:56:59 09/21/20 17 Lumbar Epidural steroid injection under fluoroscopic guidance completed Mora Reilly MD [address] [facility] , [address], [place], [address], [place] [facility] 09/22/2017 08:35:14 07/27/20 17 Lumbar Epidural steroid injection under fluoroscopic guidance completed Mora Reilly MD [address] [facility] , [address], [place], [address], [place] [facility] 07/29/2017 08:55:44 07/30/20 16 Trigger Point Injections under ultrasound guidance completed Mora Reilly MD [address] [facility] , [address], [place], [address], [place] [facility] 08/14/2016 19:23:11 07/01/20 16 Costochondral steroid injection under ultrasound guidance. completed Mora Reilly MD [address] [facility] , [address], [place], [address], [place] [facility] 07/01/2016 09:57:07 06/17/20 16 Trigger Point Injections under ultrasound guidance completed Mora Reilly MD [address] [facility] , [address], [place], [address], [place] [facility] 06/19/2016 10:54:38 06/02/20 16 Trigger Point Injections under ultrasound guidance completed Mora Reilly MD [address] , [address], [place], [address], [place] [facility] 06/02/2016 15:50:51 08/13/20 15 Costochondral steroid injection under ultrasound guidance. completed Mora Reilly MD [address] , [address], [place], [address], [place] [facility] 08/14/2015 09:44:42 05/29/20 15 Costochondral steroid injection under ultrasound guidance. completed Mora Reilly MD [address] , [address], [place], [address], [place] [facility] 05/29/2015 12:01:41 02/26/20 15 Costochondral steroid injection under ultrasound guidance. completed Mora Reilly MD [address] , [address], [place], [address], [place] [facility] 02/25/2015 11:18:19 10/01/20 14 Costochondral steroid injection under ultrasound guidance. completed Mora Reilly MD [address] , [address], [place], [address], [place] [facility] 10/11/2014 15:19:47 09/03/20 14 Costochondral steroid injection under ultrasound guidance. completed Mora Reilly MD [address] , [address], [place], [address], [place] [facility] 09/03/2014 11:25:05 08/08/20 14 Costochondral steroid injection under ultrasound guidance. completed Mora Reilly MD [address] , [address], [place], [address], [place] [facility] 08/08/2014 15:58:12 02/20/20 13 Sacroiliac Joint Steroid Injections, using Fluoroscopy completed Mora Reilly MD [address] , [address], [place], [address], [place] [facility] 02/20/2013 09:59:03 11/20/19 13 Sacroiliac Joint Steroid Injections, using Fluoroscopy completed Mora Reilly MD [address] , [address], [place], [address], [place] [facility] 11/20/2012 15:55:16 10/18/19 13 Subacromial bursal injection completed Mora Reilly MD [address] , [address], [place], [address], [place] [facility] 10/19/2012 13:28:34 09/18/20 12 Sacroiliac Joint Steroid Injections, using Fluoroscopy completed Mora Reilly MD [address] , [address], [place], [address], [place] [facility] 09/19/2012 [...] Name and Address Organization Details Recorded Time 82458 Keppra medicatio n Not available Not available Not available 05/29/2015 53932 7 RxNorm Sever e Menta tion issue s Denice Smithzier null, [place] [facility] 5 10:33:45 4281 morphine medicatio n Not available Not available Not available 09/13/2012 7052 RxNorm Swell ing Denice Smithzier null, [place] [facility] 2 10:58:56 4282 Dilantin medicatio n Not available Not available Not available 09/13/201227975 0 RxNorm Sever menta tion issue s [...] Not Available Not Available Not Available Afluria 8013-5169( PF) 45 mcg (15 mcg x 3)/0.5 [...] Status Current Every Day [facility] 07/25/2020 03:16:10 What Is Your Level Of Alcohol Consumption? None [id number] Information not available 07/25/2020 Are You Blind Or Do You Have Difficulty Seeing? No [id number] Information not available 07/25/2020 Are You Currently Employed? No [id number] Information not available 07/25/2020 Are You Deaf Or Do You Have Serious Difficulty Hearing? Yes [id number] Information not available 07/25/2020 Which Illicit Or Recreational Drugs Have You Used? No Sober X 4 1/2 Years [id number] Information not available 07/25/2020 Education 12 Some College Information not available 09/13/2012 What Is The Highest Grade Or Level Of School You Have Completed Or The Highest Degree You Have Received? 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 0 [id number] Information not available 07/25/2020 On Those Days That You Engage In Moderate To Strenuous Exercise, How Many Minutes, On Average, Do You Exercise? 2 [id number] Information not available 07/25/2020 How Hard Is It For You To Pay For The Very Basics Like Food, Housing, Medical Care, And Heating? [id number] Information not available 12/04/2018 Live Alone Or With Others? With Others House Mate Information not available 12/04/2018 Marital Status Informatio n not available 12/04/2018 What Was The Date Of Your Most Recent Tobacco Screening? 12/19/2018 [id number] Information not available 07/25/2020 Do You Feel Stressed (tense, Restless, Nervous, Or Anxious, Or Unable To Sleep At Night)? [id number] [id number] Information not available 07/25/2020 Sex: Unknown Functional Status Question Answer Note LastModified by Organizat ion Details LastModified Time Do you have difficulty walking or climbing stairs? Yes [id number] Information not available 07/25/2020 Do you have difficulty doing errands alone? Yes [id number] Information not available 07/25/2020 Do you have difficulty dressing or bathing? Yes Sometimes [id number] Information not available 07/25/2020 Mental Status Question Answer Note LastModified by Organization D etails LastModified Time Do you have difficulty concentrating, remembering or making decisions? Yes [id number] Information no t available 07/25/2020 Family History [...] SNOMED-CT Code Diagnosis ICD10 Code Diagnosis Note [id number] Mora Reilly MD PAIN OFFICE [address] [facility] [place] [address] 09/13/2012 10:32:36 09/13/2012 15:53:15 94373 Mora Reilly MD PAIN OFFICE [address] [facility] [place] [address] 09/18/2012 14:40:11 09/18/2012 15:42:39 22551 Mora Reilly MD PAIN OFFICE [address] [place] [address] 10/18/2012 13:03:22 10/18/2012 16:07:14 50947 Mora Reilly MD PAIN OFFICE [address] [facility] [place] [address] 11/20/2012 12:53:54 11/20/2012 15:34:59 53061 Denice Moses [facility] PA[facility] OFFICE [address] [place] [address] 02/06/2013 10:05:10 02/06/2013 14:35:05 30511 Mora Reilly MD [facility] PAIN OFFICE [address] [place] [address] 02/19/2013 13:29:03 02/19/2013 15:51:22 21613 Mora Reilly MD [facility] PAIN OFFICE [address] [place] [address] 07/17/2014 08:10:56 07/30/2014 15:16:18 Tietze's disease 07924376 50372 [facility] PA[facility] OFFICE [address] [place] [address] 08/08/2014 13:32:47 08/08/2014 15:59:34 Tietze's disease 85983244 42370 [facility] PAIN OFFICE [address] [place] [address] 09/03/2014 10:35:08 09/03/2014 11:26:47 Inflammation of sacroiliac joint 91714949 Tietze's disease 53537206 Shoulder joint pain 360423634 06851 [facility] PA[facility] OFF[facility] [address] [place] [address] 10/01/2014 09:40:42 10/11/2014 15:21:30 Inflammation of sacroiliac joint 62151703 Tietze's disease 11573337 Shoulder joint pain 604035440 37000 [facility] PAIN OFFICE [address] [facility] [place] [address] 12/04/2014 10:47:37 12/04/2014 13:15:12 Inflammation of sacroiliac joint 77931893 Tietze's disease 51546140 Shoulder joint pain 536880835 43485 [facility] PA[facility] [address] [facility] [place] [address] 02/25/2015 08:34:47 02/25/2015 13:20:22 Inflammation of sacroiliac joint 44575928 Tietze's disease 65475836 Shoulder joint pain 091898810 41991 [facility] PAIN OFFICE [address] [place] [address] 05/29/2015 10:04:54 05/29/2015 12:03:12 Inflammation of sacroiliac joint 60313479 Tietze's disease 02095504 Shoulder joint pain 077495073 67621 Mora Reilly MD SV PAIN OFFICE [address] [place] [address] 08/13/2015 13:06:44 08/14/2015 09:45:21 Inflammation of sacroiliac joint 08828217 M46.1 Tietze's disease 3167395 9 M94.0 Shoulder joint pain 2679 33676 M25.512 44767 Mora Reilly MD [facility] PAIN OFFICE [address] [place] [address] 12/30/2015 12:55:59 12/30/2015 13:53:52 Inflammation of sacroiliac joint 91876783 M46.1 20461 Mora Reilly MD [facility] PAIN OFFICE [address] [facility] [place] [address] 06/02/2016 11:20:00 06/02/2016 15:51:02 Cervical spondylosis without myelopathy 600740966 M47.812 Muscle pain 63254179 M79 .1 Degenerati on of cervical intervertebral disc 31618991 M50.30 77942 Mora Reilly MD [facility] PAIN OFFICE [address] [facility] [place] [address] 06/17/2016 08:53:49 06/19/2016 11:01:16 Cervical spondylosis without myelopathy 415670172 M47.812 Muscle pain 74177477 M79 .1 Degenerati on of cervical intervertebral disc 46729360 M50.30 10119 Mora Reilly MD PAIN OFFICE [address] [facility] [place] [address] 07/01/2016 09:26:06 07/01/2016 13:27:19 Inflammation of sacroiliac joint 07133335 M46.1 Tietze's disease 6568325 9 M94.0 Shoulder joint pain 2679 12770 M25.512 90170 Mora Reilly MD PAIN OFFICE [address] [place] [address] 07/30/2016 09:08:52 08/22/2016 11:46:05 Cervical spondylosis without myelopathy 881988319 M47.812 Muscle pain 13864178 M79 .1 Degenerati on of cervical intervertebral disc 38181818 M50.30 08216 Mora Reilly MD PAIN OFFICE [address] [place] [address] 07/07/2017 08:16:05 07/07/2017 09:24:56 Lumbosacral radiculitis 40575655 M54.17 Spinal abram nosis of lumbar region 81257546 M48.06 Displaceme nt of lumbar intervertebral disc without myelopathy 94179801 M51.26 Inflammati on of sacroiliac joint 64208789 M46.1 55494 Mora Reilly MD PAIN OFFICE [address] [place] [address] 07/27/2017 09:52:38 07/29/2017 14:32:39 Lumbosacral radiculitis 68247910 M54.17 Spinal abram nosis of lumbar region 07852082 M48.062 Displaceme nt of lumbar intervertebral disc without myelopathy 27626162 M51.26 Inflammati on of sacroiliac joint 45992384 M46.1 51946 Mora Reilly MD [facility] PAIN OFFICE [address] [place] [address] 08/29/2017 09:17:14 08/29/2017 10:31:46 Lumbosacral radiculitis 54806748 M54.17 Spinal abram nosis of lumbar region 86818024 M48.062 Displaceme nt of lumbar intervertebral disc without myelopathy 45353630 M51.26 Inflammati on of sacroiliac joint 43160164 M46.1 80768 Mora Reilly MD [facility] PAIN OFFICE [address] [place] [address] 09/21/2017 11:43:42 09/22/2017 09:27:57 Lumbosacral radiculitis 24787586 M54.17 Spinal abram nosis of lumbar region 62564585 M48.062 Displaceme nt of lumbar intervertebral disc without myelopathy 84586889 M51.26 Inflammati on of sacroiliac joint 72532045 M46.1 85130 Mora Reilly MD PAIN OFFICE [address] [place] [address] 02/28/2018 13:30:09 02/28/2018 15:59:37 Lumbosacral radiculitis 44144485 M54.17 Spinal abram nosis of lumbar region 56785496 M48.062 Displaceme nt of lumbar intervertebral disc without myelopathy 56891938 M51.26 Inflammati on of sacroiliac joint 14152867 M46.1 64300 Mora Reilly MD PAIN OFFICE [address] [place] [address] 12/04/2018 09:17:20 12/04/2018 10:07:57 Lumbosacral radiculitis 57594667 M54.17 Spinal abram nosis of lumbar region 64322216 M48.062 Displaceme nt of lumbar intervertebral disc without myelopathy 73905863 M51.26 Inflammati on of sacroiliac joint 56591194 M46.1 60892 Mora Reilly MD PAIN OFFICE [address] [place] [address] 12/19/2018 08:26:46 12/19/2018 10:59:08 Lumbosacral radiculitis 69177264 M54.17 Spinal abram nosis of lumbar region 90008206 M48.062 Displaceme nt of lumbar intervertebral disc without myelopathy 78290662 M51.26 Inflammati on of sacroiliac joint 24166353 M46.1 17747 Mora Reilly MD PAIN OFFICE [address] [place] [address] 08/04/2020 09:52:18 08/04/2020 13:06:36 Displacement of lumbar intervertebral disc without myelopathy 38878295 M51.26 Lumbosacra l radiculitis 71506658 M54.17 Spinal abram nosis of lumbar region 72239300 M48.062 Inflammati on of sacroiliac joint 21276914 M46.1 08167 Mora Reilly MD [facility] PAIN OFFICE [address] [facility] [place] [address] 09/10/2020 12:51:41 09/10/2020 13:26:05 Lumbosacral radiculitis 43139921 M54.17 Spinal abram nosis of lumbar region 93113234 M48.062 Displaceme nt of lumbar intervertebral disc without myelopathy 52961787 M51.26 Inflammati on of sacroiliac joint 46164686 M46.1 52703 Mora Reilly MD [facility] PAIN OFFICE [address] [facility] [place] [address] 10/20/2020 09:03:15 10/20/2020 09:11:00 Displacement of lumbar intervertebral disc without myelopathy 74885066 M51.26 Lumbosacra l radiculitis 26662689 M54.17 Spinal abram nosis of lumbar region 66460263 M48.062 Inflammati on of sacroiliac joint 71511060 M46.1 Health Concerns Section Related Observation LastModified by Organization Detai ls LastModified Time None Recorded Concern Status LastModified by Organization Details LastModified Time None Recorded Advance Directives Directive None Recorded Payers Encounter Date Sequence Insurance Name Policy Number Policy Marie Covered Member ID Marie Member ID Guarantor Name 12/04/2018 1 [place] [employer] Yuli A Bouthillette [id number] Yuli Bouthillette 12/19/2018 1 [place]: [employer] Yuli A Bouthillette [id number] Yuli Bouthillette 08/04/2020 1 MEDICARE [place]: [employer] Yuli A Bouthillette [id number] Yuli Bouthillette 09/10/2020 1 [place] [facility] Yuli Odell Bouthillette [id number] Yuli Smithhillette 10/20/2020 1 MEDICARE B-[place]: [facility] Yuli Odell Bouthillette [id number] Yuli Joelette Notes Date Note Type [...] or bowel incontinence. Mora Reilly MD [address] [address], [place], [address], [facility] - Pain Management 12/04/2018 13:52:29 12/19/2018 text/html She is here for a repeat lumbar epidural steroid injection under fluoroscopic guidance. Mora Reilly MD [address] [address], [place], [address], [facility] Pain Management 12/21/2018 10:09:19 08/04/2020 text/html [...] or bowel incontinence. Mora Reilly MD [address] [facility] , [address] [address], [place], [address], [facility] - Pain Management 08/05/2020 08:21:38 09/10/2020 text/html She is here for a lumbar epidural steroid injection under fluoroscopic guidance. Mora Reilly MD [address] [address], [place], [address], [facility] Pain Management 09/11/2020 16:25:02 10/20/2020 text/html [...] or bowel incontinence. Mora Reilly MD [address] [facility] , [address], [place], [address], [facility] Pain Management 10/20/2020 10:25:18 OBGyn Episode No OBEpisode recorded.
[2025-01-08 14:15] LABS: Alanine Aminotransferase 12 U/L (0-31); Albumin Level 3.5 g/dL (3.5-5.0); Alkaline Phosphatase 80 U/L (39-117); Anion Gap 10 (12-20); Aspartate Amino Transferase 26 U/L (5-31); Bilirubin Total 0.3 mg/dL (0.0-1.0); Blood Urea Nitrogen 13 mg/dL (9-16); Calcium 8.9 mg/dL (8.4-10.2); Carbon Dioxide 28 mmol/L (22-29); Chloride 106 mmol/L (96-108); Estimated Glomerular Filt Rate > 60; Glucose Random 78 mg/dL (60-115); Potassium 4.4 mmol/L (3.3-5.1); Sodium 140 mmol/L (135-145); Total Protein 6.3 g/dL (6.5-8.0)
== END 2025-01-08 11:13 | disposition home or self-care (01) ==
LOC: HO.HMGCLDS 11:12
PROVIDERS: PCP Nurse Practitioner Family; Visit Provider Nurse Practitioner Family
DX: D72.819 Decreased white blood cell count, unspecified (principal)
CPT/HCPCS: 36415; 80053; 85025

== ENCOUNTER 2025-01-24 12:31 | Outpatient (REF) | payer MEDICARE, MEDICAID, SELFPAY ==
--- NOTE | ~2025-01-24 | MM_ITS ---
EXAMINATION: DXA BONE DENSITY AXIAL HISTORY: E55.9 - Vitamin D deficiency, unspecified TECHNIQUE: [employer] Dual energy absorptiometry (DEXA) of the lumbar spine, total left hip, and femoral neck was performed. COMPARISON: Comparison is made with the prior examination dated 01/27/2018. FINDINGS: The bone mineral density of the lumbar spine is 0.878 with a T-score of -2.5, and a Z-score of -0.9. This is indicative of osteoporosis. This represents a BMD change of 7.1% compared to the prior exam. This is statistically significant. The bone mineral density of the left total hip is 0.542 with a T-score of -3.7, and a Z-score of -2.5. This is indicative of osteoporosis. This represents a BMD change of -17.9% compared to the prior exam. This is statistically significant. The bone mineral density of the left femoral neck is 0.592 with a T-score of -3.2, and a Z-score of -1.7. This is indicative of osteoporosis. This represents a BMD change of -11.9% compared to the prior exam. FRACTURE RISK: The FRAX index suggests a ten year probability of major osteoporotic fracture of 45.6%, and of hip fracture 15.7%. MM/XR DEXA axial skeleton IMPRESSION: Based on bone mineral density, and according to World Health Organization (WHO) criteria, the diagnosis is consistent with osteoporosis. All bone density values are in grams per centimeter squared (g/cm2). Statistically, 68% of repeat scans fall within 1 SD (+/- 0.010 g/cm2 for AP spine L1-L4) and 1 SD (+/- 0.012 g/cm2 for femur total) FRAX is a trademark of the [employer] [employer], a World Health Organization (WHO) Collaborating Center. Electronically signed by: Alex Carmen MD 01/24/2025 02:39 PM EDT
--- NOTE | ~2025-01-24 | MM_ITS ---
EXAMINATION: MM SCREENING DIGITAL BREAST TOMOSYNTHESIS, BILATERAL CLINICAL INFORMATION: Screening. Asymptomatic. COMPARISON: Mammography: Comparison is made with available priors TECHNIQUE: Digital breast mammography with tomosynthesis is performed in both the craniocaudal and mediolateral oblique views along with computer-aided detection (CAD). FINDINGS: There are scattered areas of fibroglandular density (ACR BI-RADS breast composition Category b). There are no significant masses, abnormal calcifications, or other abnormalities. MM/MM tomosynthesis screening BI IMPRESSION: No mammographic evidence of malignancy. ASSESSMENT: BI-RADS BI-RADS 1 - Negative RECOMMENDATION: Routine annual mammography screening. 1 year F/U This examination should not preclude the clinical evaluation of a suspicious palpable abnormality. This patient's information was entered into a reminder system with a target due date for their next mammogram. Electronically signed by: Suzan Carpenter DO 02/02/2025 08:37 PM EDT
[2025-01-24 15:02] LABS: Valproate 84.4 mcg/mL (50.0-100.0)
--- OUTSIDE RECORDS SUMMARY | 2025-01-24 15:19 | XMS_ITS | Data Portability ---
Author Organization [facility] Address [address] [facility] [address] [place] [address] Care Team Providers Care Gang Ripsaw Operator Name Role Phone [facility] Primary Care Provider SILVESTRE CARY Referring Provider [...] has been made and she needs a regional dedicated truck driver on the day of the procedure. [...] has been made and she needs a regional dedicated truck driver on the day of the procedure. [...] has been made and she needs a regional dedicated truck driver on the day of the procedure. [...] By Organization Details Last Modified Time 12/04/2018 [id number] She was advised to continue with activities as tolerated. [email or web address] Not available 12/04/2018 10:03:43 12/19/2018 [id number] She was advised to continue with activities as tolerated [email or web address] Not available 12/19/2018 10:40:55 08/04/2020 [id number] She was advised to continue with activities as tolerated. Telehealth visit: The patient was located at home for this telephone electronic visit and gave consent for this visit to be conducted via telehealth. 15 minutes was spent on this call and greater than 50% of the visit was spent on counseling and coordination of care. [email or web address] Not available 08/04/2020 09:57:58 09/10/2020 [id number] She was advised to continue with activities as tolerated [email or web address] Not available 09/10/2020 13:22:57 10/20/2020 [id number] She was advised to continue with activities [...] Recorded Time Degeneration of cervical intervertebral disc 04723113 Active Mora rascon MD [address] [place] [address] , [address], [facility] [place], [address], [place] [facility] 6 15:49:37 Muscle pain 25440120 Active Mora rascon MD [address] , [address], [place], [address], [place] [facility] 6 15:49:37 Cervical spondylosis without myelopathy 394394797 Active Mora rascon MD [address] , [address], [place], [address], [place] [facility] 6 15:49:37 Spinal stenosis of lumbar region 57128603 Active 2016 Mora rascon MD [address] , [address], [facility] [place], [place], [place] [facility] 7 09:23:41 Displacement of lumbar intervertebral disc without myelopathy 35639660 Active 2016 Mora rascon MD [address] , [address], [place], [address], [place] [facility] 7 09:23:42 Lumbosacral radiculitis 07005439 Active 2016 Mora rsacon MD [address] , [address], [place], [address], [place] [facility] 7 09:23:46 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 Mora rascon MD [address] , [address], [place], [address], [place] [facility] 6 15:41:12 Shoulder joint pain 882672145 Active Mora rascon MD [address] , [address], [place], [address], [place] [facility] 6 15:41:12 Problem Notes None recorded. Procedures Surgical History Date Name Laterality Status Provider Name and Address Organization Details Recorded Time 09/10/20 20 Lumbar Epidural steroid injection under fluoroscopic guidance completed Mora Reilly MD [address] [facility] , [address], [place], [address], [place] [facility] 09/10/2020 13:23:36 12/20/19 19 Lumbar Epidural steroid injection under fluoroscopic guidance completed Mora Reilly MD [address] [facility] , [address], [place], [address], [place] [facility] 12/19/2018 10:41:30 02/29/20 18 Lumbar Epidural steroid injection under fluoroscopic guidance completed Mora Reilly MD [address] [facility] , [address], [place], [address], [place] [facility] 02/28/2018 15:56:59 09/21/20 17 Lumbar Epidural steroid injection under fluoroscopic guidance completed Mora Reilly MD [address] [facility] , [address], [place], [address], [place] [facility] 09/22/2017 08:35:14 07/27/20 17 Lumbar Epidural steroid injection under fluoroscopic guidance completed Mora Reilly MD [address] [facility] , [address], [place], [address], [place] [facility] 07/29/2017 08:55:44 07/30/20 16 Trigger Point Injections under ultrasound guidance completed Mora Reilly MD [address] [facility] , [address], [place], [address], [place] [facility] 08/14/2016 19:23:11 07/01/20 16 Costochondral steroid injection under ultrasound guidance. completed Mora Reilly MD [address] [facility] , [address], [place], [address], [place] [facility] 07/01/2016 09:57:07 06/17/20 16 Trigger Point Injections under ultrasound guidance completed Mora Reilly MD [address] [facility] , [address], [place], [address], [place] [facility] 06/19/2016 10:54:38 06/02/20 16 Trigger Point Injections under ultrasound guidance completed Mora Reilly MD [address] , [address], [place], [address], [place] [facility] 06/02/2016 15:50:51 08/13/20 15 Costochondral steroid injection under ultrasound guidance. completed Mora Reilly MD [address] , [address], [place], [address], [place] [facility] 08/14/2015 09:44:42 05/29/20 15 Costochondral steroid injection under ultrasound guidance. completed Mora Reilly MD [address] , [address], [place], [address], [place] [facility] 05/29/2015 12:01:41 02/26/20 15 Costochondral steroid injection under ultrasound guidance. completed Mora Reilly MD [address] , [address], [place], [address], [place] [facility] 02/25/2015 11:18:19 10/01/20 14 Costochondral steroid injection under ultrasound guidance. completed Mora Reilly MD [address] , [address], [place], [address], [place] [facility] 10/11/2014 15:19:47 09/03/20 14 Costochondral steroid injection under ultrasound guidance. completed oMra Reilly MD [address] , [address], [place], [address], [place] [facility] 09/03/2014 11:25:05 08/08/20 14 Costochondral steroid injection under ultrasound guidance. completed Mora Reilly MD [address] , [address], [place], [address], [place] [facility] 08/08/2014 15:58:12 02/20/20 13 Sacroiliac Joint Steroid Injections, using Fluoroscopy completed Mora Reilly MD [address] , [address], [place], [address], [place] [facility] 02/20/2013 09:59:03 11/20/19 13 Sacroiliac Joint Steroid Injections, using Fluoroscopy completed Mora Reilly MD [address] , [address], [place], [address], [place] [facility] 11/20/2012 15:55:16 10/18/19 13 Subacromial bursal injection completed Mora Reilly MD [address] , [address], [place], [address], [place] [facility] 10/19/2012 13:28:34 09/18/20 12 Sacroiliac Joint Steroid Injections, using Fluoroscopy completed Mora Reilly MD [address] , [address], [place], [address], [place] [facility] 09/19/2012 [...] Name and Address Organization Details Recorded Time 88901 Keppra medicatio n Not available Not available Not available 05/29/2015 29795 7 RxNorm Sever e Menta tion issue s Denice Smithzier null, [place] [facility] 5 10:33:45 4281 morphine medicatio n Not available Not available Not available 09/13/2012 7052 RxNorm Swell ing Deince Smithzier null, [place] [facility] 2 10:58:56 4282 Dilantin medicatio n Not available Not available Not available 09/13/201260508 0 RxNorm Sever menta tion issue s [...] Not Available Not Available Not Available Afluria 1935-2088( PF) 45 mcg (15 mcg x 3)/0.5 [...] Status Current Every Day Smoker Not Available [facility] 03:16:10 What Is Your Level Of Alcohol Consumption? None [id number] Information not available 07/25/2020 Are You Blind Or Do You Have Difficulty Seeing? No [id number] Information not available 07/25/2020 Are You Currently Employed? No [id number] Information not available 07/25/2020 Are You Deaf Or Do You Have Serious Difficulty Hearing? Yes [id number] Information not available 07/25/2020 Which Illicit Or Recreational Drugs Have You Used? No Sober X 4 1/2 Years [id number] Information not available 07/25/2020 Education 12 Some College Information not available 09/13/2012 What Is The Highest Grade Or Level Of School You Have Completed Or The Highest Degree You Have Received? 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 0 [id number] Information not available 07/25/2020 On Those Days That You Engage In Moderate To Strenuous Exercise, How Many Minutes, On Average, Do You Exercise? 2 [id number] Information not available 07/25/2020 How Hard Is It For You To Pay For The Very Basics Like Food, Housing, Medical Care, And Heating? [id number] Information not available 12/04/2018 Live Alone Or With Others? With Others House Mate Information not available 12/04/2018 Marital Status Informatio n not available 12/04/2018 What Was The Date Of Your Most Recent Tobacco Screening? 12/19/2018 [id number] Information not available 07/25/2020 Do You Feel Stressed (tense, Restless, Nervous, Or Anxious, Or Unable To Sleep At Night)? HO99953-5 [id number] Information not available 07/25/2020 Sex: Unknown Functional Status Question Answer Note LastModified by Organizat ion Details LastModified Time Do you have difficulty walking or climbing stairs? Yes [id number] Information not available 07/25/2020 Do you have difficulty doing errands alone? Yes [id number] Information not available 07/25/2020 Do you have difficulty dressing or bathing? Yes Sometimes [id number] Information not available 07/25/2020 Mental Status Question Answer Note LastModified by Organization D etails LastModified Time Do you have difficulty concentrating, remembering or making decisions? Yes [id number] Information no t available 07/25/2020 Family History [...] SNOMED-CT Code Diagnosis ICD10 Code Diagnosis Note [id number] Mora Reilly MD PAIN OFFICE [address] [facility] [place] [address] 09/13/2012 10:32:36 09/13/2012 15:53:15 50913 Mora Reilly MD PAIN OFFICE [address] [facility] [place] [address] 09/18/2012 14:40:11 09/18/2012 15:42:39 73803 Mora Reilly MD PAIN OFFICE [address] [place] [address] 10/18/2012 13:03:22 10/18/2012 16:07:14 60214 Mora Reilly MD PAIN OFFICE [address] [facility] [place] [address] 11/20/2012 12:53:54 11/20/2012 15:34:59 03336 Denice Moses [facility] PA[facility] OFFICE [address] [place] [address] 02/06/2013 10:05:10 02/06/2013 14:35:05 [id number] Mora Reilly MD [facility] PAIN OFFICE [address] [place] [address] 02/19/2013 13:29:03 02/19/2013 15:51:22 45082 Mora Reilly MD [facility] PAIN OFFICE [address] [place] [address] 07/17/2014 08:10:56 07/30/2014 15:16:18 Tietze's disease 03556335 74292 [facility] PAIN OFFICE [address] [place] [address] 08/08/2014 13:32:47 08/08/2014 15:59:34 Tietze's disease 34003592 02717 SV PAIN OFFICE [address] [place] [address] 09/03/2014 10:35:08 09/03/2014 11:26:47 Inflammation of sacroiliac joint 35316844 Tietze's disease 22796449 Shoulder joint pain 600524876 34173 [facility] PA[facility] [address] [place] [address] 10/01/2014 09:40:42 10/11/2014 15:21:30 Inflammation of sacroiliac joint 67955267 Tietze's disease 22017391 Shoulder joint pain 692901492 99732 [facility] PAIN OFFICE [address] [facility] [place] [address] 12/04/2014 10:47:37 12/04/2014 13:15:12 Inflammation of sacroiliac joint 38336943 Tietze's disease 92640838 Shoulder joint pain 099045472 21683 [facility] PA[facility] OFFICE [address] [facility] [place] [address] 02/25/2015 08:34:47 02/25/2015 13:20:22 Inflammation of sacroiliac joint 47146604 Tietze's disease 90606712 Shoulder joint pain 637965485 00305 [facility] PAIN OFFICE [address] [place] [address] 05/29/2015 10:04:54 05/29/2015 12:03:12 Inflammation of sacroiliac joint 47034422 Tietze's disease 38996051 Shoulder joint pain 318216574 59673 Mora Reilly MD SV PAIN OFFICE [address] [place] [address] 08/13/2015 13:06:44 08/14/2015 09:45:21 Inflammation of sacroiliac joint 33868215 M46.1 Tietze's disease 3115053 9 M94.0 Shoulder joint pain 2679 70286 M25.512 89719 Mora Reilly MD SV PAIN OFFICE [address] [place] [address] 12/30/2015 12:55:59 12/30/2015 13:53:52 Inflammation of sacroiliac joint 70874966 M46.1 89122 Mora Reilly MD SV PAIN OFFICE [address] [facility] [place] [address] 06/02/2016 11:20:00 06/02/2016 15:51:02 Cervical spondylosis without myelopathy 749896260 M47.812 Muscle pain 58697135 M79 .1 Degenerati on of cervical intervertebral disc 49928554 M50.30 96707 Mora Reilly MD [facility] PAIN OFFICE [address] [facility] [place] [address] 06/17/2016 08:53:49 06/19/2016 11:01:16 Cervical spondylosis without myelopathy 180602697 M47.812 Muscle pain 70130038 M79 .1 Degenerati on of cervical intervertebral disc 21127458 M50.30 71119 Mora Reilly MD PAIN OFFICE [address] [facility] [place] [address] 07/01/2016 09:26:06 07/01/2016 13:27:19 Inflammation of sacroiliac joint 00690638 M46.1 Tietze's disease 6783229 9 M94.0 Shoulder joint pain 2679 24245 M25.512 05488 Mora Reilly MD PAIN OFFICE [address] [facility] [address] [place] [address] 07/30/2016 09:08:52 08/22/2016 11:46:05 Cervical spondylosis without myelopathy 208228488 M47.812 Muscle pain 86320304 M79 .1 Degenerati on of cervical intervertebral disc 80924546 M50.30 59780 Mora Reilly MD PAIN OFFICE [address] [place] [address] 07/07/2017 08:16:05 07/07/2017 09:24:56 Lumbosacral radiculitis 99273455 M54.17 Spinal abram nosis of lumbar region 00448170 M48.06 Displaceme nt of lumbar intervertebral disc without myelopathy 15726060 M51.26 Inflammati on of sacroiliac joint 34979820 M46.1 22271 Mora Reilly MD PAIN OFFICE [address] [place] [address] 07/27/2017 09:52:38 07/29/2017 14:32:39 Lumbosacral radiculitis 05412077 M54.17 Spinal abram nosis of lumbar region 21569185 M48.062 Displaceme nt of lumbar intervertebral disc without myelopathy 82657260 M51.26 Inflammati on of sacroiliac joint 92769052 M46.1 21817 Mora Reilly MD [facility] PAIN OFFICE [address] [place] [address] 08/29/2017 09:17:14 08/29/2017 10:31:46 Lumbosacral radiculitis 52110896 M54.17 Spinal abram nosis of lumbar region 66051952 M48.062 Displaceme nt of lumbar intervertebral disc without myelopathy 07237726 M51.26 Inflammati on of sacroiliac joint 10428628 M46.1 61494 Mora Reilly MD [facility] PAIN OFFICE [address] [place] [address] 09/21/2017 11:43:42 09/22/2017 09:27:57 Lumbosacral radiculitis 22608413 M54.17 Spinal abram nosis of lumbar region 33993133 M48.062 Displaceme nt of lumbar intervertebral disc without myelopathy 03679899 M51.26 Inflammati on of sacroiliac joint 11063228 M46.1 65524 Mora Reilly MD PAIN OFFICE [address] [place] [address] 02/28/2018 13:30:09 02/28/2018 15:59:37 Lumbosacral radiculitis 62410442 M54.17 Spinal abram nosis of lumbar region 37015039 M48.062 Displaceme nt of lumbar intervertebral disc without myelopathy 43936182 M51.26 Inflammati on of sacroiliac joint 01795872 M46.1 16094 Mora Reilly MD PAIN OFFICE [address] [place] [address] 12/04/2018 09:17:20 12/04/2018 10:07:57 Lumbosacral radiculitis 21736743 M54.17 Spinal abram nosis of lumbar region 44589396 M48.062 Displaceme nt of lumbar intervertebral disc without myelopathy 34121499 M51.26 Inflammati on of sacroiliac joint 68796809 M46.1 15231 Mora Reilly MD PAIN OFFICE [address] [place] [address] 12/19/2018 08:26:46 12/19/2018 10:59:08 Lumbosacral radiculitis 53566909 M54.17 Spinal abram nosis of lumbar region 41049576 M48.062 Displaceme nt of lumbar intervertebral disc without myelopathy 93935950 M51.26 Inflammati on of sacroiliac joint 34959888 M46.1 04605 Mora Reilly MD PAIN OFFICE [address] [place] [address] 08/04/2020 09:52:18 08/04/2020 13:06:36 Displacement of lumbar intervertebral disc without myelopathy 36954160 M51.26 Lumbosacra l radiculitis 53154314 M54.17 Spinal abram nosis of lumbar region 34435877 M48.062 Inflammati on of sacroiliac joint 34697010 M46.1 16027 Mora Reilly MD [facility] PAIN OFFICE [address] [facility] [place] [address] 09/10/2020 12:51:41 09/10/2020 13:26:05 Lumbosacral radiculitis 71703658 M54.17 Spinal abram nosis of lumbar region 52344827 M48.062 Displaceme nt of lumbar intervertebral disc without myelopathy 52176675 M51.26 Inflammati on of sacroiliac joint 66986998 M46.1 99163 Mora Reilly MD SV PAIN OFFICE [address] [facility] [place] [address] 10/20/2020 09:03:15 10/20/2020 09:11:00 Displacement of lumbar intervertebral disc without myelopathy 66818006 M51.26 Lumbosacra l radiculitis 94200214 M54.17 Spinal abram nosis of lumbar region 07095560 M48.062 Inflammati on of sacroiliac joint 17902077 M46.1 Health Concerns Section Related Observation LastModified by Organization Detai ls LastModified Time None Recorded Concern Status LastModified by Organization Details LastModified Time None Recorded Advance Directives Directive None Recorded Payers Encounter Date Sequence Insurance Name Policy Number Policy Marie Covered Member ID Marie Member ID Guarantor Name 12/04/2018 1 [place] [employer] Yuli A Bouthillette [id number] Yuli Bouthillette 12/19/2018 1 [place] [employer] Yuli A Bouthillette [id number] Yuli Bouthillette 08/04/2020 1 [place] [employer] Yuli A Bouthillette [id number] Yuli Bouthillette 09/10/2020 1 [place] [facility] Yuli Odell Bouthillette [id number] Yuli Smithhillette 10/20/2020 1 [place] [facility] Yuli Odell Bouthillette [id number] Yuli Joelette Notes Date Note Type [...] or bowel incontinence. Mora Reilly MD [address] [address], [place], [address], [facility] - Pain Management 12/04/2018 13:52:29 12/19/2018 text/html She is here for a repeat lumbar epidural steroid injection under fluoroscopic guidance. Mora Reilly MD [address] [address], [place], [address], [facility] Pain Management 12/21/2018 10:09:19 08/04/2020 text/html [...] or bowel incontinence. Mora Reilly MD [address] [facility] [address] [address], [place], [address], [facility] - Pain Management 08/05/2020 08:21:38 09/10/2020 text/html She is here for a lumbar epidural steroid injection under fluoroscopic guidance. Mora Reilly MD [address] [address], [place], [address], [facility] Pain Management 09/11/2020 16:25:02 10/20/2020 text/html [...] or bowel incontinence. Mora Reilly MD [address] [facility] , [address], [place], [address], [facility] Pain Management 10/20/2020 10:25:18 OBGyn Episode No OBEpisode recorded.
--- OUTSIDE RECORDS SUMMARY | 2025-01-24 15:19 | XMS_ITS | Clinical Summary ---
Author Organization [facility] it Address [address] [place] [address] Care Team Providers Care Chemical Unit Operator Name Role Phone Jose Garcia MD Primary Care Provider Unava ilable Social History Tobacco Use Types Packs/Day Years Used Date Smoking Tobacco: Never Assessed Comments Unknown Sex and Gender Information Value Date Recorded Sex Assigned at Not on file Legal Sex Female 11:47 AM EST Gender Identity Not on file Sexual Orientation Not on file Plan of Treatment Health Maintenance Due Date Last Done Comments Breast Cancer Screening 1964 DTaP,Tdap,and Td Vaccines (1 - Tdap) 1983 Cervical Cancer Screening: P ap Smear 1985 Pneumococcal Vaccine: 50+ Ye ars (1 of 1 - PCV) 2014 Zoster Vaccines (1 of 2) 2014 Colorectal Cancer Screening: Colonoscopy 09/07/2022 Depression Screening 09/07/2022 HIV Screening 09/07/2022 Hepatitis C Screening 09/07/2022 Social Influencers of Health Screening 09/07/2022 COVID-19 Vaccine (1 - 2023-2 5 season) 2024 Influenza Vaccine (Season Ended) 2025 RSV Immunization Adult Patie nts (1 - 1-dose 75+ series) 2039 HIB Vaccines Aged Out No longer eligi ble based on patient's age to complete this topic HPV Vaccines Aged Out No longer eligi ble based on patient's age to complete this topic Hepatitis A Vaccines Aged Out No long er eligible based on patient's age to complete this topic Hepatitis B Vaccines Aged Out No long er eligible based on patient's age to complete this topic IPV Vaccines Aged Out No longer eligi ble based on patient's age to complete this topic MMR Vaccines Aged Out No longer eligi ble based on patient's age to complete this topic Meningococcal ACWY Vaccine Aged Out N o longer eligible based on patient's age to complete this topic Meningococcal B Vaccine Aged Out No l onger eligible based on patient's age to complete this topic Pneumococcal Vaccine: Pediat rics (0 to 5 Years) and At-Risk Patients (6 to 64 Years) Aged Out No longer eligible b ased on patient's age to complete this topic RSV Immunization Patients Un ingrid 20 months Aged Out No longer eligible b ased on patient's age to complete this topic Varicella Vaccines Aged Out No longer eligible based on patient's age to complete this topic Advance Directives Documents on File Type Date Recorded Patient Wine Pasteurizer Expl anation Health Care Decision (hx) 09/18/2020 AD LAUREANO DIRECTIVE Health Care Decision (hx) 09/18/2020 AD LAUREANO DIRECTIVE Health Care Decision (hx) 09/18/2020 AD LAUREANO DIRECTIVE Care Teams Chemical Unit Operator Relationship Specialty Start Date End Date Jose Garcia MD PCP - General Internal Medicine 02/26/22
--- OUTSIDE RECORDS SUMMARY | 2025-01-24 15:19 | XMS_ITS | Continuity of Care Document ---
Author Organization [facility] Address [address] [facility] [address] [place] [address] Phone [phone] Social History Type Date Description Comments Sex Unknown Medical Devices Description No Information Available Encounters Description No Information Available Assessments Description No Information Available Plan of Treatment No Information Available Functional Status Description No Information Available Mental Status Description No Information Available Referrals Description No Information Available
== END 2025-01-24 12:32 | disposition home or self-care (01) ==
LOC: HO.MAMMO 12:31
PROVIDERS: Absent Provider Psychiatry & Neurology Neurology; PCP Nurse Practitioner Family; Visit Provider Nurse Practitioner Family
DX: Z12.31 Encounter for screening mammogram for malignant neoplasm of breast (principal); G40.909 Epilepsy, unspecified, not intractable, without status epilepticus; E55.9 Vitamin D deficiency, unspecified; Z78.0 Asymptomatic menopausal state
CPT/HCPCS: 36415; 77063; 77067; 77080; 80164

== ENCOUNTER → 2025-01-24 13:00 | Outpatient (BNV) | payer MEDICARE, MEDICAID, SELFPAY | PROVIDERS: Absent Provider Psychiatry & Neurology Neurology; PCP Nurse Practitioner Family; Visit Provider Radiology Diagnostic Radiology | DX: E28.39 Other primary ovarian failure (principal) | CPT/HCPCS: 77080 ==

== ENCOUNTER 2025-02-13 10:00 | Outpatient (AMB) | payer MEDICARE, MEDICAID, SELFPAY ==
[2025-02-13 10:02] VITALS: BP 118/68; PULSE 71; O2SAT 93; BMI 24.4
--- NOTE | 2025-02-13 10:02 | MHC.OFFVIS ---
Vital Signs 02/13/25 10:02 Height 4 ft 8 in Weight 108 lb 14.534 oz BMI 24.4 BP 118/68 Blood Pressure Location Lt brachial Position Sitting Pulse 71 Pulse Source Pulse Oximeter Pulse Oximetry (%) 93 Oxygen Delivery Method Room Air Intake Visit Reasons: Osteoporosis Intake Note: Patient presents for follow up on osteoporosis today. Allergies latex [LATEX] Allergy (Intermediate, Verified 02/13/25 10:07) RASH morphine [MORPHINE] Allergy (Intermediate, Verified 02/13/25 10:07) SWELLING alendronate sodium [From FOSAMAX] Allergy (Unknown, Verified 02/13/25 10:07) PER H+P levetiracetam [From KEPPRA] Adverse Reaction (Intermediate, Verified 02/13/25 10:07) DICKENS phenytoin [From DILANTIN] Adverse Reaction (Intermediate, Verified 02/13/25 10:07) CANT FUNCTION Medication List - Last Reconciled 02/13/25 by Alex Box MD albuterol sulfate 90 mcg/actuation (Ventolin HFA) 2 puffs inhalation Q6H PRN Arnuity Ellipta 100 mcg/actuation (fluticasone furoate) 1 inh inhalation DAILY NS aspirin 81 mg PO DAILY 90 days atorvastatin 80 mg PO DAILY 90 days budesonide 90 mcg/actuation (Pulmicort Flexhaler) 1 inh inhalation Q12H clonazepam 0.5 mg PO DAILY PRN divalproex ER 500 mg PO TID lansoprazole 30 mg PO BID levothyroxine 100 mcg PO DAILY loperamide 2 mg PO Q6H PRN meclizine 12.5 mg PO TID PRN 20 days metoclopramide HCl 10 mg PO QID mirtazapine 45 mg PO BEDTIME primidone 50 mg PO TID sertraline 200 mg PO QAM sucralfate (Carafate) 20 mL PO QNOON zolpidem 10 mg PO BEDTIME HPI Comments Details: 59 YO Female is seen in consultation at the request of PCP for Osteoporosis. First diagnosed in yrs >[address] Zavala over 12 yrs ago Received treatment in the past with fosamax ,for 1 yr . Not Tolerated treatment well but can't recall History of pathologic fracture of hip moving furniture 34 yrs ago or ONJ. Has limited servings of dietary calcium per day in the form of cheese , ice cream . Not Takes Calcium supplement . Not Takes of Vitamin D daily. Use PPI, -anticoagulant, +antiepileptic - glucocorticoid medication. Not Does weight bearing exercise Fracture history: as above Height loss: Y [employer] history: Menarche at age 9 - Menopause at age 44 - nl menses Denies history of Kidney stones: Has family history of Osteoporosis in sister and mother and hip fracture. UTD on dental cleanings and sees dentist every 6 months. No planned upcoming dental work or extractions. +Tabacco use but previous ETOH abuse DXA dated 01/24/25 : EXAMINATION: DXA BONE DENSITY AXIAL HISTORY: E55.9 - Vitamin D deficiency, unspecified TECHNIQUE: [employer] Dual energy absorptiometry (DEXA) of the lumbar spine, total left hip, and femoral neck was performed. COMPARISON: Comparison is made with the prior examination dated 01/27/2018. FINDINGS: The bone mineral density of the lumbar spine is 0.878 with a T-score of -2.5, and a Z-score of -0.9. This is indicative of osteoporosis. This represents a BMD change of 7.1% compared to the prior exam. This is statistically significant. The bone mineral density of the left total hip is 0.542 with a T-score of -3.7, and a Z-score of -2.5. This is indicative of osteoporosis. This represents a BMD change of -17.9% compared to the prior exam. This is statistically significant. The bone mineral density of the left femoral neck is 0.592 with a T-score of -3.2, and a Z-score of -1.7. This is indicative of osteoporosis. This represents a BMD change of -11.9% compared to the prior exam. FRACTURE RISK: The FRAX index suggests a ten year probability of major osteoporotic fracture of 45.6%, and of hip fracture 15.7%. MM/XR DEXA axial skeleton IMPRESSION: Based on bone mineral density, and according to World Health Organization (WHO) criteria, the diagnosis is consistent with osteoporosis. Labs: [facility] Medical History (Updated 02/10/25 @ 18:29 by Srikanth Palomares, [facility]) Screening for cervical cancer Screening for colon cancer Pain in right leg Swelling of right lower extremity Breast cancer screening, high risk patient Edema Hypoglycemia Tremor Cerebral microvascular disease Hx of hiatal hernia Tubular adenoma of colon On beta matty at home Nicotine dependence, unspecified, uncomplicated Lumbosacral pain Lumbar stenosis Lumbar radiculitis Multiple pulmonary nodules COPD (chronic obstructive pulmonary disease) Osteoporosis Hypothyroid Depression Hyperlipidemia Hypertension Myocardial infarct CAD (coronary artery disease) Intracranial arachnoid cyst Cerebral atrophy Seizure Surgical History Hx of local excision of skin lesion History of foot surgery (~2013) History of tubal ligation History of heart artery stent (~2004) History of colonoscopy (~2018) History of appendectomy S/P dilatation of esophageal stricture (~2020) History of [place] fundoplication (~2019) History of esophagogastroduodenoscopy (EGD) (~2020) Family History Father Blood clots in brain Diabetes Polio Mother Breast cancer Hiatal hernia Sister Cancer Brother Myocardial infarction Family/Other Throat cancer Stomach cancer Paternal Grandmother Cancer Social History Household Members: Other Housing: Apartment Alcohol intake: current Alcohol intake frequency: does not drink Patient Tobacco Use Status: Current everyday Tobacco user Tobacco use type: Cigarette Cigarette Packs Per Day: 0.5 Cigarettes Per Day: 10.0 Years Smoked: 42 e-Cigarette/Vaping Use: Never Used Second Hand Smoke Exposure: No Current occupational status: disabled Cognitive needs: No Hearing needs: No Vision needs: No Physical Exam Vital Signs: Last Vital Signs Pulse 71 02/13/25 10:02 BP 118/68 02/13/25 10:02 Pulse Ox 93 02/13/25 10:02 Oxygen Delivery Method Room Air 02/13/25 10:02 BMI result Body Mass Index 24.4 There are no Cushingoid features. Absence of blue sclera. Absence of kyphosis. Thyroid gland is of nl size and weighs 15 gms. There are no thyroid nodules palpated. Lungs CTA. Heart S1 S2 Reg R/R Abdominal exam benign. Muscle strength 5/5 . Examination of spine reveals absence of tenderness on palpation Assessment & Plan Assessment & Plan (1) Osteoporosis: Code(s): M81.0 - Age-related osteoporosis without current pathological fracture Category: Medical Plan: This is a 59-year-old white female with a history of moderate to severe osteoporosis. Partial secondary workup has been performed Plan is to complete the secondary workup by checking a phosphorus level, urine immunofixation, 24 hour urine for calcium and creatinine. Will ensure 1200 mg of calcium and vitamin D3 2000 IU per day supplementation. Assuming secondary workup is negative would strongly consider use of anabolic therapy initially like Evenity , Forteo or Tymlos proceeded by anti resorptive therapy like Prolia intravenous bisphosphonate considering the erosive gastritis considering patient is a very high risk for fracture with very low bone density Orders: Orders Phosphorus Today M81.0 - Age-related osteoporosis without current pathological fracture Creatinine, 24 Hr Group Today M81.0 - Age-related osteoporosis without current pathological fracture Immunofixation, Random Urine Today M81.0 - Age-related osteoporosis without current pathological fracture Calcium, 24 Hr Ur Today M81.0 - Age-related osteoporosis without current pathological fracture Coding Level of Care Code New Pt Level 4 (04491) Diagnoses Osteoporosis M81.0
--- OUTSIDE RECORDS SUMMARY | 2025-02-13 11:08 | XMS_ITS | Data Portability ---
Author Organization [facility] Address [address] [facility] [address] [place] [address] Care Team Providers Care File Clerk Name Role Phone [facility] Primary Care Provider [phone] SILVESTRE CARY Referring Provider ANA GODINEZ Primary Care Provider [phone] Assessment Encounter Date Assessment Date Assessment LastModified [...] has been made and she needs a hack driver on the day of the procedure. [...] has been made and she needs a hack driver on the day of the procedure. [...] has been made and she needs a hack driver on the day of the procedure. [...] By Organization Details Last Modified Time 12/04/2018 69121 She was advised to continue with activities as tolerated. [email or web address] Not available 12/04/2018 10:03:43 12/19/2018 [id number] She was advised to continue with activities as tolerated [email or web address] Not available 12/19/2018 10:40:55 08/04/2020 [id number] She was advised to continue with activities as tolerated. Telehealth visit: The patient was located at home for this telephone electronic visit and gave consent for this visit to be conducted via telehealth. 15 minutes was spent on this call and greater than 50% of the visit was spent on counseling and coordination of care. [email or web address] Not available 08/04/2020 09:57:58 09/10/2020 [id number] She was advised to continue with activities as tolerated [email or web address] Not available 09/10/2020 13:22:57 10/20/2020 [id number] She was advised to continue with activities [...] Recorded Time Degeneration of cervical intervertebral disc 30196040 Active Mora rascon MD [address] [place] [address] , [address], [facility] [place], [address], [place] [facility] 6 15:49:37 Muscle pain 69865105 Active Mora rascon MD [address] , [address], [place], 9, [place] [facility] 6 15:49:37 Cervical spondylosis without myelopathy 958074931 Active Mora rascon MD [address] , [address], [place], [place], [place] [facility] 6 15:49:37 Spinal stenosis of lumbar region 74600945 Active 2016 Mora rascon MD [address] , [address], [facility] [place], 9, [place] [facility] 7 09:23:41 Displacement of lumbar intervertebral disc without myelopathy 84896122 Active 2016 Mora rascon MD [address] , [address], [place], 9, [place] [facility] 7 09:23:42 Lumbosacral radiculitis 00471037 Active 2016 Mora rascon MD [address] , [address], [place], 9, [place] [facility] 7 09:23:46 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 Mora rascon MD [address] , [address], [place], 9, [place] [facility] 6 15:41:12 Shoulder joint pain 420722192 Active Mora rascon MD [address] , [address], [place], 9, [place] [facility] 6 15:41:12 Problem Notes None recorded. Procedures Surgical History Date Name Laterality Status Provider Name and Address Organization Details Recorded Time 09/10/20 20 Lumbar Epidural steroid injection under fluoroscopic guidance completed Mora Reilly MD [address] [facility] , [address], [place], [address], [place] [facility] 09/10/2020 13:23:36 12/20/19 19 Lumbar Epidural steroid injection under fluoroscopic guidance completed Mora Reilly MD [address] [facility] , [address], [place], [address], [place] [facility] 12/19/2018 10:41:30 02/29/20 18 Lumbar Epidural steroid injection under fluoroscopic guidance completed Mora Reilly MD [address] [facility] , [address], [place], [address], [place] [facility] 02/28/2018 15:56:59 09/21/20 17 Lumbar Epidural steroid injection under fluoroscopic guidance completed Mora Reilly MD [address] [facility] , [address], [place], [address], [place] [facility] 09/22/2017 08:35:14 07/27/20 17 Lumbar Epidural steroid injection under fluoroscopic guidance completed Mora Reilly MD [address] [facility] , [address], [place], [address], [place] [facility] 07/29/2017 08:55:44 07/30/20 16 Trigger Point Injections under ultrasound guidance completed Mora Reilly MD [address] [facility] , [address], [place], [address], [place] [facility] 08/14/2016 19:23:11 07/01/20 16 Costochondral steroid injection under ultrasound guidance. completed Mora Reilly MD [address] [facility] , [address], [place], [address], [place] [facility] 07/01/2016 09:57:07 06/17/20 16 Trigger Point Injections under ultrasound guidance completed Mora Reilly MD [address] [facility] , [address], [place], [address], [place] [facility] 06/19/2016 10:54:38 06/02/20 16 Trigger Point Injections under ultrasound guidance completed Mora Reilly MD [address] , [address], [place], [address], [place] [facility] 06/02/2016 15:50:51 08/13/20 15 Costochondral steroid injection under ultrasound guidance. completed Mora Reilly MD [address] , [address], [place], [address], [place] [facility] 08/14/2015 09:44:42 05/29/20 15 Costochondral steroid injection under ultrasound guidance. completed oMra Reilly MD [address] , [address], [place], [address], [place] [facility] 05/29/2015 12:01:41 02/26/20 15 Costochondral steroid injection under ultrasound guidance. completed Mora Reilly MD [address] , [address], [place], [address], [place] [facility] 02/25/2015 11:18:19 10/01/20 14 Costochondral steroid injection under ultrasound guidance. completed Mora Reilly MD [address] , [address], [place], [address], [place] [facility] 10/11/2014 15:19:47 09/03/20 14 Costochondral steroid injection under ultrasound guidance. completed Mora Reilly MD [address] , [address], [place], [address], [place] [facility] 09/03/2014 11:25:05 08/08/20 14 Costochondral steroid injection under ultrasound guidance. completed Mora Reilly MD [address] , [address], [place], [address], [place] [facility] 08/08/2014 15:58:12 02/20/20 13 Sacroiliac Joint Steroid Injections, using Fluoroscopy completed Mora Reilly MD [address] , [address], [place], [address], [place] [facility] 02/20/2013 09:59:03 11/20/19 13 Sacroiliac Joint Steroid Injections, using Fluoroscopy completed Mora Reilly MD [address] , [address], [place], [address], [place] [facility] 11/20/2012 15:55:16 10/18/19 13 Subacromial bursal injection completed Mora Reilly MD [address] , [address], [place], [address], [place] [facility] 10/19/2012 13:28:34 09/18/20 12 Sacroiliac Joint Steroid Injections, using Fluoroscopy completed Mora Reilly MD [address] , [address], [place], [address], [place] [facility] 09/19/2012 [...] Name and Address Organization Details Recorded Time 67172 Keppra medicatio n Not available Not available Not available 05/29/2015 29588 7 RxNorm Sever e Menta tion issue s Denice Smithzier null, [place] [facility] 5 10:33:45 4281 morphine medicatio n Not available Not available Not available 09/13/2012 7052 RxNorm Swell ing Denice Smithzier null, [place] [facility] 2 10:58:56 4282 Dilantin medicatio n Not available Not available Not available 09/13/201277768 0 RxNorm Sever menta tion issue s [...] Not Available Not Available Not Available Afluria 9560-3985( PF) 45 mcg (15 mcg x 3)/0.5 [...] Status Current Every Day [facility] 07/[facility]/2020 03:16:10 What Is Your Level Of Alcohol Consumption? None [id number] Information not available 07/25/2020 Are You Blind Or Do You Have Difficulty Seeing? No [id number] Information not available 07/25/2020 Are You Currently Employed? No [id number] Information not available 07/25/2020 Are You Deaf Or Do You Have Serious Difficulty Hearing? Yes [id number] Information not available 07/25/2020 Which Illicit Or Recreational Drugs Have You Used? No Sober X 4 1/2 Years [id number] Information not available 07/25/2020 Education 12 Some College Information not available 09/13/2012 What Is The Highest Grade Or Level Of School You Have Completed Or The Highest Degree You Have Received? 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 0 [id number] Information not available 07/25/2020 On Those Days That You Engage In Moderate To Strenuous Exercise, How Many Minutes, On Average, Do You Exercise? 2 [id number] Information not available 07/25/2020 How Hard Is It For You To Pay For The Very Basics Like Food, Housing, Medical Care, And Heating? [id number] Information not available 12/04/2018 Live Alone Or With Others? With Others House Mate Information not available 12/04/2018 Marital Status Informatio n not available 12/04/2018 What Was The Date Of Your Most Recent Tobacco Screening? 12/19/2018 [id number] Information not available 07/25/2020 Do You Feel Stressed (tense, Restless, Nervous, Or Anxious, Or Unable To Sleep At Night)? [id number] [id number] Information not available 07/25/2020 Sex: Unknown Functional Status Question Answer Note LastModified by Organizat ion Details LastModified Time Do you have difficulty walking or climbing stairs? Yes [id number] Information not available 07/25/2020 Do you have difficulty doing errands alone? Yes [id number] Information not available 07/25/2020 Do you have difficulty dressing or bathing? Yes Sometimes [id number] Information not available 07/25/2020 Mental Status Question Answer Note LastModified by Organization D etails LastModified Time Do you have difficulty concentrating, remembering or making decisions? Yes [id number] Information no t available 07/25/2020 Family History [...] SNOMED-CT Code Diagnosis ICD10 Code Diagnosis Note [id number] Mora Reilly MD PAIN OFFICE [address] [facility] [place] [address] 09/13/2012 10:32:36 09/13/2012 15:53:15 47217 Mora Reilly MD PAIN OFFICE [address] [facility] [place] [address] 09/18/2012 14:40:11 09/18/2012 15:42:39 [id number] Mora Reilly MD PAIN OFFICE [address] [place] [address] 10/18/2012 13:03:22 10/18/2012 16:07:14 50748 Mora Reilly MD PAIN OFFICE [address] [facility] [place] [address] 11/20/2012 12:53:54 11/20/2012 15:34:59 [id number] Mora Reilly MD [facility] PAIN OFFICE [address] [place] [address] 02/06/2013 10:05:10 02/06/2013 14:35:05 94309 Mora Reilly MD [facility] PAIN OFFICE [address] [place] [address] 02/19/2013 13:29:03 02/19/2013 15:51:22 42816 Mora Reilly MD [facility] PAIN OFFICE [address] [place] [address] 07/17/2014 08:10:56 07/30/2014 15:16:18 Tietze's disease 32013129 15929 Mora Reilly MD [facility] PAIN OFFICE [address] [address] 08/08/2014 13:32:47 08/08/2014 15:59:34 Tietze's disease 80818915 17588 Mora Reilly MD [facility] PAIN OFFICE [address] [place] [address] 09/03/2014 10:35:08 09/03/2014 11:26:47 Inflammation of sacroiliac joint 58255170 Tietze's disease 87419382 Shoulder joint pain 146120305 81214 Mora Reilly MD [facility] PAIN OFFICE [address] [place] [address] 10/01/2014 09:40:42 10/11/2014 15:21:30 Inflammation of sacroiliac joint 23214595 Tietze's disease 59345073 Shoulder joint pain 205998103 46323 Mora Reilly MD SV PAIN OFFICE [address] [place] [address] 12/04/2014 10:47:37 12/04/2014 13:15:12 Inflammation of sacroiliac joint 79422231 Tietze's disease 08947484 Shoulder joint pain 978644679 82359 Mora Reilly MD PAIN OFFICE [address] [place] [address] 02/25/2015 08:34:47 02/25/2015 13:20:22 Inflammation of sacroiliac joint 18440257 Tietze's disease 49303389 Shoulder joint pain 358540975 32147 Mora Reilly MD PAIN OFFICE [address] [place] [address] 05/29/2015 10:04:54 05/29/2015 12:03:12 Inflammation of sacroiliac joint 07547290 Tietze's disease 41047005 Shoulder joint pain 263778622 70048 Mora Reilly MD PAIN OFFICE [address] [place] [address] 08/13/2015 13:06:44 08/14/2015 09:45:21 Inflammation of sacroiliac joint 18420659 M46.1 Tietze's disease 3548671 9 M94.0 Shoulder joint pain 2679 13577 M25.512 52398 Mora Reilly MD PAIN OFFICE [address] [place] [address] 12/30/2015 12:55:59 12/30/2015 13:53:52 Inflammation of sacroiliac joint 34308791 M46.1 57433 Mora Reilly MD [facility] PAIN OFFICE [address] [facility] [place] [address] 06/02/2016 11:20:00 06/02/2016 15:51:02 Cervical spondylosis without myelopathy 381816478 M47.812 Muscle pain 45027527 M79 .1 Degenerati on of cervical intervertebral disc 61101053 M50.30 55035 Mora Reilly MD PAIN OFFICE [address] [place] [address] 06/17/2016 08:53:49 06/19/2016 11:01:16 Cervical spondylosis without myelopathy 748725474 M47.812 Muscle pain 78159603 M79 .1 Degenerati on of cervical intervertebral disc 37958635 M50.30 70528 Mora Reilly MD [facility] PAIN OFFICE [address] [place] [address] 07/01/2016 09:26:06 07/01/2016 13:27:19 Inflammation of sacroiliac joint 30190379 M46.1 Tietze's disease 8356505 9 M94.0 Shoulder joint pain 2679 75368 M25.512 53925 Mora Reilly MD SV PAIN OFFICE [address] [place] [address] 07/30/2016 09:08:52 08/22/2016 11:46:05 Cervical spondylosis without myelopathy 030916102 M47.812 Muscle pain 60213606 M79 .1 Degenerati on of cervical intervertebral disc 36304983 M50.30 58249 Mora Reilly MD PAIN OFFICE [address] [address] 07/07/2017 08:16:05 07/07/2017 09:24:56 Lumbosacral radiculitis 03641601 M54.17 Spinal abram nosis of lumbar region 52242871 M48.06 Displaceme nt of lumbar intervertebral disc without myelopathy 55848941 M51.26 Inflammati on of sacroiliac joint 74954971 M46.1 96132 Mora Reilly MD PAIN OFFICE [address] [address] 07/27/2017 09:52:38 07/29/2017 14:32:39 Lumbosacral radiculitis 21929320 M54.17 Spinal abram nosis of lumbar region 87849958 M48.062 Displaceme nt of lumbar intervertebral disc without myelopathy 47682128 M51.26 Inflammati on of sacroiliac joint 36229993 M46.1 71196 Mora Reilly MD PAIN OFFICE [address] [address] 08/29/2017 09:17:14 08/29/2017 10:31:46 Lumbosacral radiculitis 44746943 M54.17 Spinal abram nosis of lumbar region 33432451 M48.062 Displaceme nt of lumbar intervertebral disc without myelopathy 47317527 M51.26 Inflammati on of sacroiliac joint 74048326 M46.1 99753 Mora Reilly MD PAIN OFFICE [address] [place] [address] 09/21/2017 11:43:42 09/22/2017 09:27:57 Lumbosacral radiculitis 07205823 M54.17 Spinal abram nosis of lumbar region 24956879 M48.062 Displaceme nt of lumbar intervertebral disc without myelopathy 06328160 M51.26 Inflammati on of sacroiliac joint 91416863 M46.1 22370 Mora Reilly MD PAIN OFFICE [address] [place] [address] 02/28/2018 13:30:09 02/28/2018 15:59:37 Lumbosacral radiculitis 66340399 M54.17 Spinal abram nosis of lumbar region 60401322 M48.062 Displaceme nt of lumbar intervertebral disc without myelopathy 78865485 M51.26 Inflammati on of sacroiliac joint 49417174 M46.1 89712 Mora Reilly MD PAIN OFFICE [address] [place] [address] 12/04/2018 09:17:20 12/04/2018 10:07:57 Lumbosacral radiculitis 04240889 M54.17 Spinal abram nosis of lumbar region 50795745 M48.062 Displaceme nt of lumbar intervertebral disc without myelopathy 84489819 M51.26 Inflammati on of sacroiliac joint 67939740 M46.1 86429 Mora Reilly MD PAIN OFFICE [address] [place] [address] 12/19/2018 08:26:46 12/19/2018 10:59:08 Lumbosacral radiculitis 47729437 M54.17 Spinal abram nosis of lumbar region 97453927 M48.062 Displaceme nt of lumbar intervertebral disc without myelopathy 31291910 M51.26 Inflammati on of sacroiliac joint 00643906 M46.1 57020 Mora Reilly MD [facility] PAIN OFFICE [address] [facility] [place] [address] 08/04/2020 09:52:18 08/04/2020 13:06:36 Displacement of lumbar intervertebral disc without myelopathy 09644899 M51.26 Lumbosacra l radiculitis 83810504 M54.17 Spinal abram nosis of lumbar region 25908159 M48.062 Inflammati on of sacroiliac joint 18208707 M46.1 92895 Mora Reilly MD [facility] PAIN OFFICE [address] [facility] [place] [address] 09/10/2020 12:51:41 09/10/2020 13:26:05 Lumbosacral radiculitis 54539342 M54.17 Spinal abram nosis of lumbar region 76951139 M48.062 Displaceme nt of lumbar intervertebral disc without myelopathy 14826025 M51.26 Inflammati on of sacroiliac joint 06180161 M46.1 83812 Mora Reilly MD [facility] PAIN OFFICE [address] [facility] [place] [address] 10/20/2020 09:03:15 10/20/2020 09:11:00 Displacement of lumbar intervertebral disc without myelopathy 97303315 M51.26 Lumbosacra l radiculitis 15326056 M54.17 Spinal abram nosis of lumbar region 41077093 M48.062 Inflammati on of sacroiliac joint 75332023 M46.1 Health Concerns Section Related Observation LastModified by Organization Detai ls LastModified Time None Recorded Concern Status LastModified by Organization Details LastModified Time None Recorded Advance Directives Directive None Recorded Payers Encounter Date Sequence Insurance Name Policy Number Policy Marie Covered Member ID Marie Member ID Guarantor Name 12/04/2018 1 [place]: [employer] Yuli Rahmanllette [id number] Yuli Leilani 12/19/2018 1 [place] [facility] [employer] Yuli A Luishillette [id number] Yuli Smithhillette 08/04/2020 1 [place] [facility] Yuli Odell Bouthillette [id number] Yuli Smithhillette 09/10/2020 1 [place] [facility] Yuli Odell Bouthillette [id number] Yuli Smithhillette 10/20/2020 1 [place] [facility] Yuli Odell Bouthillette [id number] Yuli Smithhillette Notes Date Note Type Note Provider Name [...] or bowel incontinence. Mora Reilly MD [address] [facility] , [address], [place], [address], [facility] - Pain Management 12/04/2018 13:52:29 12/19/2018 text/html She is here for a repeat lumbar epidural steroid injection under fluoroscopic guidance. Mora Reilly MD [address] [facility] , [address], [place], [address], [facility] - [facility] Management 12/21/2018 [...] or bowel incontinence. Mora Reilly MD [address] [facility] , [address], [place], [address], [facility] - Pain Management 08/05/2020 08:21:38 09/10/2020 text/html She is here for a lumbar epidural steroid injection under fluoroscopic guidance. Mora Reilly MD [address] [facility] , [address], [place], [address], [facility] 09/11/2020 16:25:02 10/20/2020 text/html This [...] or bowel incontinence. Mora Reilly MD [address] [facility] , [address], [place], [address], [facility] 10/20/2020 10:25:18 OBGyn Episode No OBEpisode recorded.
--- OUTSIDE RECORDS SUMMARY | 2025-02-13 11:08 | XMS_ITS | Continuity of Care Document ---
Author Organization [facility] Address [address] [facility] [address] [place] [address] Phone [phone] Social History Type Date Description Comments Sex Unknown Medical Devices Description No Information Available Encounters Description No Information Available Assessments Description No Information Available Plan of Treatment No Information Available Functional Status Description No Information Available Mental Status Description No Information Available Referrals Description No Information Available
--- OUTSIDE RECORDS SUMMARY | 2025-02-13 11:08 | XMS_ITS | Clinical Summary ---
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
== END 2025-02-13 10:54 | disposition home or self-care (01) ==
LOC: HO.ENCR 10:01
PROVIDERS: PCP Nurse Practitioner Family; Visit Provider Internal Medicine Endocrinology, Diabetes & Metabolism
DX: M81.0 Age-related osteoporosis without current pathological fracture (principal)
CPT/HCPCS: 99204

== ENCOUNTER → 2025-02-13 10:00 | Outpatient (BNVA) | payer MEDICARE, MEDICAID, SELFPAY | PROVIDERS: PCP Nurse Practitioner Family; Visit Provider Internal Medicine Endocrinology, Diabetes & Metabolism | DX: M81.0 Age-related osteoporosis without current pathological fracture (principal) | CPT/HCPCS: 99202 ==

== ENCOUNTER 2025-02-19 11:27 | Outpatient (AMB) | payer MEDICARE, MEDICAID, SELFPAY ==
--- NOTE | 2025-02-19 11:33 | A.OFFVIS_ITS ---
Vital Signs 02/19/25 11:34 Height 4 ft 8 in Weight 108 lb 7.479 oz BMI 24.3 BP 101/65 Blood Pressure Location Lt brachial Position Sitting Pulse 85 Pulse Source Pulse Oximeter Pulse Oximetry (%) 93 Oxygen Delivery Method Room Air Intake Visit Reasons: Urgent appt, N+V, dysphagia, unintentional W/L. Intake Note: Pt presents to the office today for nausea and vomiting, dysphagia. Pt states this started 7 months ago. Allergies latex [LATEX] Allergy (Intermediate, Verified 02/19/25 11:39) RASH morphine [MORPHINE] Allergy (Intermediate, Verified 02/19/25 11:39) SWELLING alendronate sodium [From FOSAMAX] Allergy (Unknown, Verified 02/19/25 11:39) PER H+P levetiracetam [From KEPPRA] Adverse Reaction (Intermediate, Verified 02/19/25 11:39) DICKENS phenytoin [From DILANTIN] Adverse Reaction (Intermediate, Verified 02/19/25 11:39) CANT FUNCTION HPI HPI Urgent appt, N+V, dysphagia, unintentional W/L.: Details: Assessment & Plan (1) Esophageal spasm: Code(s): K22.4 - Dyskinesia of esophagus Category: Medical (2) GERD with esophagitis: Code(s): K21.00 - Gastro-esophageal reflux disease with esophagitis, without bleeding Category: Medical (3) Delayed gastric emptying: Code(s): K30 - Functional dyspepsia Category: Medical (4) Erosive gastritis: Code(s): K29.60 - Other gastritis without bleeding Category: Medical (5) Dysphagia: Code(s): R13.10 - Dysphagia, unspecified Category: Medical (6) Erosive esophagitis: Code(s): K22.10 - Ulcer of esophagus without bleeding Category: Medical (7) Abdominal pain: Code(s): R10.9 - Unspecified abdominal pain Category: Medical Plan No improvement in swallowing with cardizem so stop. She is now having diarrhea and bloating. Continued early satiety and nausea despite reglan. Adding liquid carafate and getting US of abd. She is s/p nissin fund with Dr. Gomez - I think she will need to see him as we are not having success with dilation and medical mgmt. She has upcoming colonoscopy, she continues on her lansoprazole twice a day, also utilizes loperamide along with her Reglan. COLONOSCOPY scheduled for 04/17 apparently there was some confusion and this was canceled BIOPSY Orders: Orders US abdomen complete 02/22/24 R10.9 - Unspecified abdominal pain Medications: New sucralfate (Carafate) 20 mL PO QNOON 1,000 mL 1RF K29.60 - Other gastritis without bleeding, K22.10 - Ulcer of esophagus without bleeding Discontinued diltiazem HCl CD Discontinued Reason: Doctor's Order 120 mg PO DAILY 30 caps 3RF K22.4 - Dyskinesia of esophagus COLONOSCOPY BIOPSY 8 TODAYS VISIT Pt has been lost to follow up since 04/2024 Her new SEVERITY OF ILLNESS COORDINATOR is name is [place]. She says she is not doing well. She is here with a new SEVERITY OF ILLNESS COORDINATOR who is quite involved and helpful. Yuli is now in independent living. Has a walker. She is c/o severe dyphagia, and says I need an EGD. However in the past she did not resolve with dilation and we were to do esoph manometry and ? achalasia. This never happened. The endoscopist did not feel she would benefit from further dilations. However she is really quite insistent that she wants an endoscopy and given her history of erosive esophagitis I will get 1 to see if there is any other contributing factors. In the meantime we discussed safe swallowing precautions and I recommended a soft diet. We will refer her again to [facility] for esophageal manometry and potential treatment. In the past there was no help with Bentyl or CCB, and now her blood pressures are running low about 100 systolic so I would not want to do any trial of a blood pressure affecting medicine. She finds food getting stuck at 2 places, at sternal notch and mid sternal area. She also has severe pain in the mid chest which seems to speak to spasm. She will still have unexpected vomiting without nausea despite taking reglan ? if this is refluxed from esophagus. she is s/o belgica fund. EGD repeat barium swallow as last was in 2020, will get uS to see if GB pathology has any effect. She has COPD that she says is controlled and denies any ongoing cardiac problems. There are no prior problems with anesthesia or sedation. There are no infectious disease problems. ROV 8 weeks. [facility] Medical History (Updated 02/19/25 @ 13:12 by LILLIAN Lofton) Epigastric pain Physical deconditioning Hypomagnesemia Abdominal pain Pleuritic pain Bilateral hip pain Bilateral knee pain Weakness Esophageal stricture Screening for cervical cancer Screening for colon cancer Pain in right leg Swelling of right lower extremity Breast cancer screening, high risk patient Edema Hypoglycemia Tremor Cerebral microvascular disease Hx of hiatal hernia Tubular adenoma of colon On beta matty at home Nicotine dependence, unspecified, uncomplicated Lumbosacral pain Lumbar stenosis Lumbar radiculitis Multiple pulmonary nodules COPD (chronic obstructive pulmonary disease) Osteoporosis Hypothyroid Depression Hyperlipidemia Hypertension Myocardial infarct CAD (coronary artery disease) Intracranial arachnoid cyst Cerebral atrophy Seizure Surgical History Hx of local excision of skin lesion History of foot surgery (~2013) History of tubal ligation History of heart artery stent (~2004) History of colonoscopy (~2018) History of appendectomy S/P dilatation of esophageal stricture (~2020) History of [place] fundoplication (~2019) History of esophagogastroduodenoscopy (EGD) (~2020) Family History Father Blood clots in brain Diabetes Polio Mother Breast cancer Hiatal hernia Sister Cancer Brother Myocardial infarction Family/Other Throat cancer Stomach cancer Paternal Grandmother Cancer Social History Household Members: Other Housing: Apartment Alcohol intake: current Alcohol intake frequency: does not drink Patient Tobacco Use Status: Current everyday Tobacco user Tobacco use type: Cigarette Cigarette Packs Per Day: 0.5 Cigarettes Per Day: 10.0 Years Smoked: 42 e-Cigarette/Vaping Use: Never Used Second Hand Smoke Exposure: No Current occupational status: disabled Cognitive needs: No Hearing needs: No Vision needs: No Review of Systems Const Denies fatigue, Denies fever(s), Denies night sweats, Denies poor appetite and Denies weight loss ENT Reports Normal hearing present, Denies dental pain, Reports dysphagia, Denies hearing loss, Denies mouth pain, Denies odynophagia, Denies throat swelling, Denies tongue swelling and Reports other (Dentition adequate) Card Reports no additional complaints and Reports dyspnea on exertion Resp Reports dyspnea on exertion GI Details: Denies abdominal pain, Denies melena, Denies bloating, Denies hematochezia, Denies constipation, Denies GI cramping, Reports dysphagia, Denies excessive flatus, Denies early satiety, Reports heartburn, Reports diarrhea, Denies nausea, Denies odynophagia, Reports vomiting and Denies hematemesis Musc Reports abnormal gait, Reports myalgias and Reports arthralgias Skin/Breast Denies pruritus, Denies lesions, Denies rash and Denies jaundice Neuro Reports Normal hearing present, Denies Abnormal speech present, Reports abnormal gait and Reports convulsions Psych Reports anxiety Endo Denies fatigue Aller/Immun Denies throat swelling and Denies tongue swelling Physical Exam Vital Signs: Last Vital Signs Pulse 85 02/19/25 11:34 BP 101/65 02/19/25 11:34 Pulse Ox 93 02/19/25 11:34 Oxygen Delivery Method Room Air 02/19/25 11:34 BMI result Body Mass Index 24.3 Const General: cooperative, no acute distress, well developed and well groomed Nutritional Appearance: average body habitus and well nourished Orientation/consciousness: oriented to person, oriented to place and oriented to time Limitations: No language barrier and ambulation with walker HEENT Head: Yes normocephalic and Yes atraumatic Eyes General: appearance normal, both eyes and all related structures Pupils: Equal, round and reactive pupils present Neck Neck: Yes normal visual inspection and Yes no lymphadenopathy Thyroid: Thyroid normal Resp Effort & Inspection: normal respiratory effort and able to speak in complete sentences Auscultation: clear to auscultation bilaterally Cardio Rate: regular rate Rhythm: regular rhythm Heart sounds: Normal, physiologic split S2 sound present Peripheral pulses: radial pulses present and posterior tibial pulses present GI Inspection: No distended and No Abdominal panniculus present Palpation (GI): Soft to palpation, nontender, no guarding, not rigid and No hepatosplenomegaly present Percussion: Yes normal to percussion Auscultation: normal bowel sounds Rectal Exam - Female: deferred Skin General skin exam: no rashes or lesions noted, turgor normal, skin not dry, no jaundice, No spider nevi and no striae Rashes: no rashes Nails: normal Neuro General: oriented to person, oriented to place and oriented to time Cranial nerves: Yes Equal, round and reactive pupils present and Yes Normal hearing present Speech: No Abnormal speech present Extrem General: Yes normal to inspection, No clubbing, No cyanosis and No edema Psych Appearance: grossly normal and well kempt Mental Status: mental status grossly normal Speech and movement: Normal speech and movement present Affect: normal affect Attitude: cooperative Thought process: Circumstantial thought process present and not confabulating Thought content: Normal thought content present Insight: Limited insight present (Psych) Judgement: Limited judgement present (Psych) Results Reviewed Results Reviewed: Laboratory Tests 01/08/25 11:18 WBC 5.1 Hgb 13.1 Hct 39.7 Plt Count 203 Estimated GFR > 60 Total Bilirubin 0.3 AST 26 ALT 12 Alkaline Phosphatase 80 Assessment & Plan Assessment & Plan (1) Achalasia: Code(s): K22.0 - Achalasia of cardia Category: Medical (2) Dysphagia: Code(s): R13.10 - Dysphagia, unspecified Category: Medical (3) Tubular adenoma of colon: Comment: 2019 SCOPE= TA REPEAT IN 5 YEARS Code(s): D12.6 - Benign neoplasm of colon, unspecified Category: Medical (4) Erosive esophagitis: Code(s): K22.10 - Ulcer of esophagus without bleeding Category: Medical (5) Nausea and vomiting: Code(s): R11.2 - Nausea with vomiting, unspecified Category: Medical (6) Esophageal spasm: Code(s): K22.4 - Dyskinesia of esophagus Category: Medical (7) GERD with esophagitis: Code(s): K21.00 - Gastro-esophageal reflux disease with esophagitis, without bleeding Category: Medical (8) Delayed gastric emptying: Code(s): K30 - Functional dyspepsia Category: Medical (9) Erosive gastritis: Code(s): K29.60 - Other gastritis without bleeding Category: Medical (10) COPD (chronic obstructive pulmonary disease): Code(s): J44.9 - Chronic obstructive pulmonary disease, unspecified Category: Medical (11) Diarrhea: Code(s): R19.7 - Diarrhea, unspecified Category: Medical (12) Pre-op examination: Code(s): Z01.818 - Encounter for other preprocedural examination Category: Medical Plan Pt has been lost to follow up since 04/2024 Her new SEVERITY OF ILLNESS COORDINATOR is name is [place]. She says she is not doing well. She is here with a new SEVERITY OF ILLNESS COORDINATOR who is quite involved and helpful. Yuli is now in independent living. Has a walker. She is c/o severe dyphagia, and says I need an EGD. However in the past she did not resolve with dilation and we were to do esoph manometry and ? achalasia. This never happened. The endoscopist did not feel she would benefit from further dilations. However she is really quite insistent that she wants an endoscopy and given her history of erosive esophagitis I will get 1 to see if there is any other contributing factors. In the meantime we discussed safe swallowing precautions and I recommended a soft diet. We will refer her again to [facility] for esophageal manometry and potential treatment. In the past there was no help with Bentyl or CCB, and now her blood pressures are running low about 100 systolic so I would not want to do any trial of a blood pressure affecting medicine. She finds food getting stuck at 2 places, at sternal notch and mid sternal area. She also has severe pain in the mid chest which seems to speak to spasm. She will still have unexpected vomiting without nausea despite taking reglan ? if this is refluxed from esophagus. she is s/o belgica fund. EGD repeat barium swallow as last was in 2020, will get uS to see if GB pathology has any effect. She has COPD that she says is controlled and denies any ongoing cardiac problems. There are no prior problems with anesthesia or sedation. There are no infectious disease problems. ROV 8 weeks. Orders: Orders [place] barium swallow Today K22.0 - Achalasia of cardia, K22.10 - Ulcer of esophagus without bleeding, R13.10 - Dysphagia, unspecified EGD/[place] Combo - GI Use Only Today D12.6 - Benign neoplasm of colon, unspecified, R13.10 - Dysphagia, unspecified US abdomen complete Today R11.2 - Nausea with vomiting, unspecified Referrals Gastroenterology Referral K22.0 - Achalasia of cardia, K22.10 - Ulcer of esophagus without bleeding, R13.10 - Dysphagia, unspecified Coding Level of Care Code Est Pt Level 4 (99821) Diagnoses Achalasia K22.0 Dysphagia R13.10 Tubular adenoma of colon D12.6 Erosive esophagitis K22.10 Nausea and vomiting R11.2 Esophageal spasm K22.4 GERD with esophagitis K21.00 Delayed gastric emptying K30 Erosive gastritis K29.60 COPD (chronic obstructive pulmonary disease) J44.9 Diarrhea R19.7 Pre-op examination Z01.818 Time Spent (min) 38
[2025-02-19 11:34] VITALS: BP 101/65; PULSE 85; O2SAT 93; BMI 24.3
--- OUTSIDE RECORDS SUMMARY | 2025-02-19 12:56 | XMS_ITS | Continuity of Care Document ---
Author Organization [facility] Address [address] [place] [address] Phone [phone] Social History Type Date Description Comments Sex Unknown Medical Devices Description No Information Available Encounters Description No Information Available Assessments Description No Information Available Plan of Treatment No Information Available Functional Status Description No Information Available Mental Status Description No Information Available Referrals Description No Information Available
--- OUTSIDE RECORDS SUMMARY | 2025-02-19 12:56 | XMS_ITS | Clinical Summary ---
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
--- OUTSIDE RECORDS SUMMARY | 2025-02-19 12:56 | XMS_ITS | Data Portability ---
Author Organization [facility] [address] [facility] [address] [place] [address] Care Team Providers Care Studio Engineer Name Role Phone [facility] Primary Care Provider [phone] SILVESTRE CARY Referring Provider ANA GODINEZ Primary [...] has been made and she needs a tow driver on the day of the procedure. [...] has been made and she needs a tow driver on the day of the procedure. [...] has been made and she needs a tow driver on the day of the procedure. [...] By Organization Details Last Modified Time 12/04/2018 91200 She was advised to continue with activities as tolerated. [email or web address] Not available 12/04/2018 10:03:43 12/19/2018 [id number] She was advised to continue with activities as tolerated [email or web address] Not available 12/19/2018 10:40:55 08/04/2020 [id number] She was advised to continue with activities as tolerated. Telehealth visit: The patient was located at home for this telephone electronic visit and gave consent for this visit to be conducted via telehealth. 15 minutes was spent on this call and greater than 50% of the visit was spent on counseling and coordination of care. [email or web address] Not available 08/04/2020 09:57:58 09/10/2020 [id number] She was advised to continue with activities as tolerated [email or web address] Not available 09/10/2020 13:22:57 10/20/2020 [id number] She was advised to continue with activities [...] Recorded Time Degeneration of cervical intervertebral disc 62794460 Active Mora rascon MD [address] [place] [address] , [address], [facility] [place], [address], [place] [facility] 6 15:49:37 Muscle pain 11738971 Active Mora rascon MD [address] , [address], [place], [address], [place] [facility] 6 15:49:37 Cervical spondylosis without myelopathy 217965572 Active Mora rascon MD [address] , [address], [place], [address], [place] [facility] 6 15:49:37 Spinal stenosis of lumbar region 95163597 Active 2016 Mora rascon MD [address] , [address], [facility] [place], [address], [place] [facility] 7 09:23:41 Displacement of lumbar intervertebral disc without myelopathy 38994655 Active 2016 Mora rascon MD [address] , [address], [place], [address], [place] [facility] 7 09:23:42 Lumbosacral radiculitis 15442301 Active 2016 Mora rascon MD [address] , [address], [place], [address], [place] [facility] 7 09:23:46 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 Mora rascon MD [address] , [address], [place], [address], [place] [facility] 6 15:41:12 Shoulder joint pain 104145249 Active Mora rascon MD [address] , [address], [place], [address], [place] [facility] 6 15:41:12 Problem Notes None recorded. Procedures Surgical History Date Name Laterality Status Provider Name and Address Organization Details Recorded Time 09/10/20 20 Lumbar Epidural steroid injection under fluoroscopic guidance completed Mora Reilly MD [address] [facility] , [address], [place], [address], [place] [facility] 09/10/2020 13:23:36 12/20/19 19 Lumbar Epidural steroid injection under fluoroscopic guidance completed Mora Reilly MD [address] [facility] , [address], [place], [address], [place] [facility] 12/19/2018 10:41:30 02/29/20 18 Lumbar Epidural steroid injection under fluoroscopic guidance completed Mora Reilly MD [address] [facility] , [address], [place], [address], [place] [facility] 02/28/2018 15:56:59 09/21/20 17 Lumbar Epidural steroid injection under fluoroscopic guidance completed Mora Reilly MD [address] [facility] , [address], [place], [address], [place] [facility] 09/22/2017 08:35:14 07/27/20 17 Lumbar Epidural steroid injection under fluoroscopic guidance completed Mora Reilly MD [address] [facility] , [address], [place], [address], [place] [facility] 07/29/2017 08:55:44 07/30/20 16 Trigger Point Injections under ultrasound guidance completed Mora Reilly MD [address] [facility] , [address], [place], [address], [place] [facility] 08/14/2016 19:23:11 07/01/20 16 Costochondral steroid injection under ultrasound guidance. completed Mora Reilly MD [address] [facility] , [address], [place], [address], [place] [facility] 07/01/2016 09:57:07 06/17/20 16 Trigger Point Injections under ultrasound guidance completed Mora Reilly MD [address] [facility] , [address], [place], [address], [place] [facility] 06/19/2016 10:54:38 06/02/20 16 Trigger Point Injections under ultrasound guidance completed Mora Reilly MD [address] , [address], [place], [address], [place] [facility] 06/02/2016 15:50:51 08/13/20 15 Costochondral steroid injection under ultrasound guidance. completed Mora Reilly MD [address] , [address], [place], [address], [place] [facility] 08/14/2015 09:44:42 05/29/20 15 Costochondral steroid injection under ultrasound guidance. completed Mora Reilly MD [address] , [address], [place], [address], [place] [facility] 05/29/2015 12:01:41 02/26/20 15 Costochondral steroid injection under ultrasound guidance. completed Mora Reilly MD [address] , [address], [place], [address], [place] [facility] 02/25/2015 11:18:19 10/01/20 14 Costochondral steroid injection under ultrasound guidance. completed Mora Reilly MD [address] , [address], [place], [address], [place] [facility] 10/11/2014 15:19:47 09/03/20 14 Costochondral steroid injection under ultrasound guidance. completed Mora Reilly MD [address] , [address], [place], [address], [place] [facility] 09/03/2014 11:25:05 08/08/20 14 Costochondral steroid injection under ultrasound guidance. completed Mora Reilly MD [address] , [address], [place], [address], [place] [facility] 08/08/2014 15:58:12 02/20/20 13 Sacroiliac Joint Steroid Injections, using Fluoroscopy completed Mora Reilly MD [address] , [address], [place], [address], [place] [facility] 02/20/2013 09:59:03 11/20/19 13 Sacroiliac Joint Steroid Injections, using Fluoroscopy completed Mora Reilly MD [address] , [address], [place], [address], [place] [facility] 11/20/2012 15:55:16 10/18/19 13 Subacromial bursal injection completed Mora Reilly MD [address] , [address], [place], [address], [place] [facility] 10/19/2012 13:28:34 09/18/20 12 Sacroiliac Joint Steroid Injections, using Fluoroscopy completed Mora Reilly MD [address] , [address], [place], [address], [place] [facility] 09/19/2012 [...] Name and Address Organization Details Recorded Time 19018 Keppra medicatio n Not available Not available Not available 05/29/2015 32848 7 RxNorm Sever e Menta tion issue s Denice Smithzier null, [place] [facility] 5 10:33:45 4281 morphine medicatio n Not available Not available Not available 09/13/2012 7052 RxNorm Swell ing Denice Smithzier null, [place] [facility] 2 10:58:56 4282 Dilantin medicatio n Not available Not available Not available 09/13/201283132 0 RxNorm Sever menta tion issue s [...] Not Available Not Available Not Available Afluria 7474-2006( PF) 45 mcg (15 mcg x 3)/0.5 [...] Social History Question Answer Notes LastModified by Blue Saint Details LastModified Time Tobacco Smoking Status Current Every Day Smoker Not Available [facility] 07/25/2020 03:16:10 Are You Blind Or Do You Have Difficulty Seeing? No [id number] Information not available 07/25/2020 Are You Deaf Or Do You Have Serious Difficulty Hearing? Yes [id number] Information not available 07/25/2020 Which Illicit Or Recreational Drugs Have You Used? No Sober X 4 1/2 Years [id number] Information not available 07/25/2020 Education 12 Some College Information not available 09/13/2012 What Is The Highest Grade Or Level Of School You Have Completed Or The Highest Degree You Have Received? [id number] [id number] Information not available 07/25/2020 How Many Days Of Moderate To Strenuous Exercise, Like A Brisk Walk, Did You Do In The Last 7 Days? 0 [id number] Information not available 07/25/2020 On Those Days That You Engage In Moderate To Strenuous Exercise, How Many Minutes, On Average, Do You Exercise? 2 [id number] Information not available 07/25/2020 How Hard Is It For You To Pay For The Very Basics Like Food, Housing, Medical Care, And Heating? [id number] Information not available 12/04/2018 Live Alone Or With Others? With Others House Mate Information not available 12/04/2018 Marital Status Informatio n not available 12/04/2018 What Was The Date Of Your Most Recent Tobacco Screening? 12/19/2018 [id number] Information not available 07/25/2020 Sex: Unknown Functional Status Question Answer Note LastModified by [employer] Details LastModified Time What is your level of alcohol consumption? None [id number] Information not available 07/25/2020 Are you currently employed? No [id number] Information not available 07/25/2020 Do you have difficulty walking or climbing stairs? Yes [id number] Information not available 07/25/2020 Do you have difficulty doing errands alone? 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 Yes Sometimes [id number] Information not available 07/25/2020 Mental Status Question Answer Note LastModified by Organizat ion Details LastModified Time Do you feel stressed (tense, restless, nervous, or anxious, or unable to sleep at night)? [id number] [id number] Information not available 07/25/2020 Do you have difficulty concentrating, remembering or making decisions? Yes [id number] Information no t available 07/25/2020 Family History Nothing Reported. Medical History Condition Response Diabetes Y Coronary Artery Disease Y Seizures/Epilepsy Y Migrane Y Arthritis Y GERD/Reflux Y High Cholesterol Y Hypertension Y COPD Y Gynecological HistoryNo gynecological history recorded. Obstetrics History GPAL:G 0 P 0 0 0 0 Past Encounters Encounter ID Performer Location Encounter Start Date Encounter Closed Date Diagnosis/Indication Diagnosis SNOMED-CT Code Diagnosis ICD10 Code Diagnosis Note [id number] Mora Reilly MD PAIN OFFICE [address] [facility] [place] [address] 09/13/2012 10:32:36 09/13/2012 15:53:15 [id number] Mora Reilly MD PAIN OFFICE [address] [facility] [place] [address] 09/18/2012 14:40:11 09/18/2012 15:42:39 [id number] Mora Reilly MD PAIN OFFICE [address] [facility] [place] [address] 10/18/2012 13:03:22 10/18/2012 16:07:14 [id number] Mora Reilly MD PAIN OFFICE [address] [facility] [place] [address] 11/20/2012 12:53:54 11/20/2012 15:34:59 [id number] Mora Reilly MD [facility] PA[facility] [address] [place] [address] 02/06/2013 10:05:10 02/06/2013 14:35:05 [id number] Mora Reilly MD [facility] PAIN OFFICE [address] [place] [address] 02/19/2013 13:29:03 02/19/2013 15:51:22 [id number] Mora Reilly MD [facility] PAIN OFFICE [address] [place] [address] 07/17/2014 08:10:56 07/30/2014 15:16:18 Tietze's disease 87575661 [id number] Mora Reilly MD [facility] PAIN OFFICE [address] [address] 08/08/2014 13:32:47 08/08/2014 15:59:34 Tietze's disease 12027825 [id number] Mora Reilly MD [facility] PAIN OFFICE [address] [place] [address] 09/03/2014 10:35:08 09/03/2014 11:26:47 Inflammation of sacroiliac joint 92570761 Tietze's disease 82090658 Shoulder joint pain 218396606 [id number] Mora Reilly MD [facility] PAIN OFFICE [address] [place] [address] 10/01/2014 09:40:42 10/11/2014 15:21:30 Inflammation of sacroiliac joint 81366747 Tietze's disease 69673579 Shoulder joint pain 828925719 [id number] Mora Reilly MD [facility] PAIN OFFICE [address] [place] [address] 12/04/2014 10:47:37 12/04/2014 13:15:12 Inflammation of sacroiliac joint 64656201 Tietze's disease 67160500 Shoulder joint pain 200291105 [id number] Mora Reilly MD PAIN OFFICE [address] [place] [address] 02/25/2015 08:34:47 02/25/2015 13:20:22 Inflammation of sacroiliac joint 07740323 Tietze's disease 18833011 Shoulder joint pain 779469268 [id number] Mora Reilly MD [facility] PAIN OFFICE [address] [place] [address] 05/29/2015 10:04:54 05/29/2015 12:03:12 Inflammation of sacroiliac joint 74257508 Tietze's disease 61477099 Shoulder joint pain 972233924 [id number] Mora Reilly MD PAIN OFFICE [address] [place] [address] 08/13/2015 13:06:44 08/14/2015 09:45:21 Inflammation of sacroiliac joint 82514566 M46.1 Tietze's disease 6462554 9 M94.0 Shoulder joint pain 2679 72514 M25.512 [id number] Mora Reilly MD PAIN OFFICE [address] [facility] [place] [address] 12/30/2015 12:55:59 12/30/2015 13:53:52 Inflammation of sacroiliac joint 34984002 M46.1 [id number] Mora Reilly MD [facility] PAIN OFFICE [address] [facility] [place] [address] 06/02/2016 11:20:00 06/02/2016 15:51:02 Cervical spondylosis without myelopathy 852737961 M47.812 Muscle pain 88690955 M79 .1 Degenerati on of cervical intervertebral disc 39097863 M50.30 [id number] Mora Reilly MD PAIN OFFICE [address] [facility] [place] [address] 06/17/2016 08:53:49 06/19/2016 11:01:16 Cervical spondylosis without myelopathy 322134262 M47.812 Muscle pain 56293786 M79 .1 Degenerati on of cervical intervertebral disc 90777486 M50.30 [id number] Mora Reilly MD [facility] PAIN OFFICE [address] [place] [address] 07/01/2016 09:26:06 07/01/2016 13:27:19 Inflammation of sacroiliac joint 60856136 M46.1 Tietze's disease 4245155 9 M94.0 Shoulder joint pain 2679 94752 M25.512 [id number] Mora Reilly MD PAIN OFFICE [address] [place] [place] [address] 07/30/2016 09:08:52 08/22/2016 11:46:05 Cervical spondylosis without myelopathy 621391870 M47.812 Muscle pain 20116907 M79 .1 Degenerati on of cervical intervertebral disc 40913137 M50.30 [id number] Mora Reilly MD PAIN OFFICE [address] [place] [address] 07/07/2017 08:16:05 07/07/2017 09:24:56 Lumbosacral radiculitis 23558058 M54.17 Spinal abram nosis of lumbar region 45679153 M48.06 Displaceme nt of lumbar intervertebral disc without myelopathy 14284514 M51.26 Inflammati on of sacroiliac joint 16685736 M46.1 [id number] Mora Reilly MD PAIN OFFICE [address] [place] [address] 07/27/2017 09:52:38 07/29/2017 14:32:39 Lumbosacral radiculitis 85564627 M54.17 Spinal abram nosis of lumbar region 91902844 M48.062 Displaceme nt of lumbar intervertebral disc without myelopathy 54888331 M51.26 Inflammati on of sacroiliac joint 96586405 M46.1 [id number] Mora Reilly MD [facility] PAIN OFFICE [address] [place] [place] [address] 08/29/2017 09:17:14 08/29/2017 10:31:46 Lumbosacral radiculitis 01546237 M54.17 Spinal arbam nosis of lumbar region 61233979 M48.062 Displaceme nt of lumbar intervertebral disc without myelopathy 66696033 M51.26 Inflammati on of sacroiliac joint 66242162 M46.1 [id number] Mora Reilly MD PAIN OFFICE [address] [place] [address] 09/21/2017 11:43:42 09/22/2017 09:27:57 Lumbosacral radiculitis 86820107 M54.17 Spinal abram nosis of lumbar region 55159587 M48.062 Displaceme nt of lumbar intervertebral disc without myelopathy 40085234 M51.26 Inflammati on of sacroiliac joint 74150125 M46.1 [id number] Mora Reilly MD PAIN OFFICE [address] [place] [address] 02/28/2018 13:30:09 02/28/2018 15:59:37 Lumbosacral radiculitis 85749188 M54.17 Spinal abram nosis of lumbar region 14896078 M48.062 Displaceme nt of lumbar intervertebral disc without myelopathy 63917138 M51.26 Inflammati on of sacroiliac joint 60307889 M46.1 [id number] Mora Reilly MD PAIN OFFICE [address] [place] [address] 12/04/2018 09:17:20 12/04/2018 10:07:57 Lumbosacral radiculitis 58886174 M54.17 Spinal abram nosis of lumbar region 12861241 M48.062 Displaceme nt of lumbar intervertebral disc without myelopathy 39819767 M51.26 Inflammati on of sacroiliac joint 99197758 M46.1 [id number] Mora Reilly MD PAIN OFFICE [address] [place] [address] 12/19/2018 08:26:46 12/19/2018 10:59:08 Lumbosacral radiculitis 55319682 M54.17 Spinal abram nosis of lumbar region 35455467 M48.062 Displaceme nt of lumbar intervertebral disc without myelopathy 35517017 M51.26 Inflammati on of sacroiliac joint 73340903 M46.1 [id number] Mora Reilly MD [facility] PAIN OFFICE [address] [facility] [place] [address] 08/04/2020 09:52:18 08/04/2020 13:06:36 Displacement of lumbar intervertebral disc without myelopathy 57111448 M51.26 Lumbosacra l radiculitis 91580471 M54.17 Spinal abram nosis of lumbar region 45648811 M48.062 Inflammati on of sacroiliac joint 25227744 M46.1 [id number] Mora Reilly MD [facility] PAIN OFFICE [address] [facility] [place] [address] 09/10/2020 12:51:41 09/10/2020 13:26:05 Lumbosacral radiculitis 65272250 M54.17 Spinal abram nosis of lumbar region 68002093 M48.062 Displaceme nt of lumbar intervertebral disc without myelopathy 19209978 M51.26 Inflammati on of sacroiliac joint 48293717 M46.1 [id number] Mora Reilly MD [facility] PAIN OFFICE [address] [facility] [place] [address] 10/20/2020 09:03:15 10/20/2020 09:11:00 Displacement of lumbar intervertebral disc without myelopathy 46727970 M51.26 Lumbosacra l radiculitis 38061068 M54.17 Spinal abram nosis of lumbar region 58068804 M48.062 Inflammati on of sacroiliac joint 52527617 M46.1 Health Concerns Section Related Observation LastModified by Organization Detai ls LastModified Time None Recorded Concern Status LastModified by Organization Details LastModified Time None Recorded Advance Directives Directive None Recorded Payers Encounter Date Sequence Insurance Name Policy Number Policy Marie Covered Member ID Marie Member ID Guarantor Name 12/04/2018 1 [place] [employer] Yulidillon Smithhillette [id number] Yuli Joelette 12/19/2018 1 [place] [facility] Yuli A Bouthillette [id number] Yuli Smithhillette 08/04/2020 1 [place] [facility] Yuli Smithhillette [id number] Yuli Smithhillette 09/10/2020 1 [place] [facility] Yuli Odell Bouthillette [id number] Yuli Smithhillette 10/20/2020 1 [place] [facility] Yuli Odell Bouthillette [id number] Yuli Smithhillette Notes Date Note Type [...] or bowel incontinence. Mora Reilly MD [address] [facility] , [address], [place], [address], [facility] - [facility] 12/04/2018 13:52:29 12/19/2018 text/html She is here for a repeat lumbar epidural steroid injection under fluoroscopic guidance. Mora Reilly MD [address] [facility] , [address], [place], [address], [facility] - [facility] 12/21/2018 10:09:19 [...] or bowel incontinence. Mora Reilly MD [address] [facility] , [address], [place], [address], [facility] - [facility] Management 08/05/2020 08:21:38 09/10/2020 text/html She is here for a lumbar epidural steroid injection under fluoroscopic guidance. Mora Reilly MD [address] [facility] , [address], [place], [address], [facility] Pain Management 09/11/2020 16:25:02 10/20/2020 [...] or bowel incontinence. Mora Reilly MD [address] [facility] , [address], [place], [address], [facility] Pain Management 10/20/2020 10:25:18 OBGyn Episode No OBEpisode recorded.
== END 2025-02-19 12:36 | disposition home or self-care (01) ==
LOC: HO.HGI 11:28
PROVIDERS: PCP Nurse Practitioner Family; Visit Provider Nurse Practitioner
DX: K22.4 Dyskinesia of esophagus (principal); K22.10 Ulcer of esophagus without bleeding; K30 Functional dyspepsia; K29.60 Other gastritis without bleeding
CPT/HCPCS: 99214

== ENCOUNTER → 2025-02-19 11:27 | Outpatient (BNVA) | payer MEDICARE, MEDICAID, SELFPAY | PROVIDERS: PCP Nurse Practitioner Family; Visit Provider Nurse Practitioner | DX: Z01.818 Encounter for other preprocedural examination (principal); K22.4 Dyskinesia of esophagus; K21.00 Gastro-esophageal reflux disease with esophagitis, without bleeding; K30 Functional dyspepsia; K29.60 Other gastritis without bleeding; K22.0 Achalasia of cardia; K22.10 Ulcer of esophagus without bleeding; R13.10 Dysphagia, unspecified; R19.7 Diarrhea, unspecified; R11.2 Nausea with vomiting, unspecified; J44.9 Chronic obstructive pulmonary disease, unspecified; D12.6 Benign neoplasm of colon, unspecified | CPT/HCPCS: 99212 ==

== ENCOUNTER 2025-03-12 15:07 | Outpatient (AMB) | payer MEDICARE, MEDICAID, SELFPAY ==
[2025-03-12 15:10] VITALS: BP 100/64; PULSE 89; RESP 17; TEMP 36.8; O2SAT 92; BMI 25.3
--- NOTE | 2025-03-12 15:10 | AM.OFFWIN_ITS ---
Intake Vital Signs 03/12/25 15:10 Height 4 ft 8 in Weight 113 lb BMI 25.3 BP 100/64 Blood Pressure Location Rt brachial Position Sitting Respiration 17 Pulse 89 Pulse Source Pulse Oximeter Temp 98.2 F Temp Source Oral Pulse Oximetry (%) 92 Oxygen Delivery Method Room Air Intake Visit Reasons: EP Bilat swelling from knees down to feet Intake Note: Pt is here today c/o bilateral swelling from knees to feet x3days Patient Tobacco Use Status: Current everyday Tobacco user Allergies latex [LATEX] Allergy (Intermediate, Verified 03/12/25 15:14) RASH morphine [MORPHINE] Allergy (Intermediate, Verified 03/12/25 15:14) SWELLING alendronate sodium [From FOSAMAX] Allergy (Unknown, Verified 03/12/25 15:14) PER H+P levetiracetam [From KEPPRA] Adverse Reaction (Intermediate, Verified 03/12/25 15:14) DICKENS phenytoin [From DILANTIN] Adverse Reaction (Intermediate, Verified 03/12/25 15:14) CANT FUNCTION HPI HPI Comments History of Present Illness Details History of Present Illness - The patient is a 59-year-old female pr esenting with lower extremity leg swelling. - The patient was previously managed by Dr. Meadows, with recommendations for pneumatic compression therapy following failures with compression garments. - Unable to utilize compression device d ue to soiling by cat urine, with insurance constraints preventing replacement until 2028. - Reports a history of consistent coughi ng associated with COPD with no noted changes from baseline. - Past medical history includes chronic heart failure with discontinued use of diuretics. - The echocardiogram performed in 2021 r evealed a normal ejection fraction of 61% ruling out heart failure exacerbation as a cause for the swelling. - The leg swelling is worsening and acco mpanied by reports of reduced balance and mobility. Physical Exam General: Cooperative, healthy appearing, comfortable, no acute distress and well developed Orientation: Patient oriented x3 Limitations: uses a walker Head: Normal to inspection Ears: Hearing grossly normal bilaterally Nose: Normal External nose present Face and sinus: Normal facial exam Eyes: Appearance normal, both eyes and all related structures Neck: Normal visual inspection and Yes full ROM Respiratory: Normal respiratory effort and able to speak in complete sentences. Clear to auscultation bilaterally Cardiovascular: Regular rate and rhythm. Normal S1 and S2 Skin: No rashes or lesions noted Neuro: Patient oriented x3 Extremities: Lower extremity 2+ edema bilaterally. Vascular Surgery note from 12/2023: In short the patient has late on sent lymphedema. The patient has been on conservative treatment for at least 3 months with minimal relief. Patient has tried 30 mm of mercury compression garments, elevation, exercise healthy diet and doing manual says self MLD to the best of their ability for over 4 weeks but with no significant relief. She has been compliant with the program but has provided minimal relief. In addition on physical we are noticing hyperpigmentation, lymphorrhea, and hyperplasia. It appears that she has stage 2 lymphedema. Patient has completed multiple forms of conservative therapy yet significant symptoms remain. Patient requires the use of a pneumatic compression device which we will assist in trying to have the patient obtain them. A pneumatic compression device will help reduce swelling and other lymphedema comorbidities. Thank you for allowing us to assist in this patient's care. 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 Will treat her for lymphedema. [facility] Medical History (Updated 02/20/25 @ 13:03 by PARVIN Morin-) Urinary incontinence Epigastric pain Physical deconditioning Hypomagnesemia Abdominal pain Pleuritic pain Bilateral hip pain Bilateral knee pain Weakness Esophageal stricture Screening for cervical cancer Screening for colon cancer Pain in right leg Swelling of right lower extremity Breast cancer screening, high risk patient Edema Hypoglycemia Tremor Cerebral microvascular disease Hx of hiatal hernia Tubular adenoma of colon On beta matty at home Nicotine dependence, unspecified, uncomplicated Lumbosacral pain Lumbar stenosis Lumbar radiculitis Multiple pulmonary nodules COPD (chronic obstructive pulmonary disease) Osteoporosis Hypothyroid Depression Hyperlipidemia Hypertension Myocardial infarct CAD (coronary artery disease) Intracranial arachnoid cyst Cerebral atrophy Seizure Surgical History Hx of local excision of skin lesion History of foot surgery (~2013) History of tubal ligation History of heart artery stent (~2004) History of colonoscopy (~2018) History of appendectomy S/P dilatation of esophageal stricture (~2020) History of [place] fundoplication (~2019) History of esophagogastroduodenoscopy (EGD) (~2020) Family History Father Blood clots in brain Diabetes Polio Mother Breast cancer Hiatal hernia Sister Cancer Brother Myocardial infarction Family/Other Throat cancer Stomach cancer Paternal Grandmother Cancer Social History Household Members: Other Housing: Apartment Alcohol intake: current Alcohol intake frequency: does not drink Patient Tobacco Use Status: Current everyday Tobacco user Tobacco use type: Cigarette Cigarette Packs Per Day: 0.5 Cigarettes Per Day: 10.0 Years Smoked: 42 e-Cigarette/Vaping Use: Never Used Second Hand Smoke Exposure: No Current occupational status: disabled Cognitive needs: No Hearing needs: No Vision needs: No Review of Systems Const All systems reviewed & are unremarkable except as noted in HPI and below Physical Exam Vital Signs: Last Vital Signs Temp 98.2 F 03/12/25 15:10 Pulse 89 03/12/25 15:10 Resp 17 03/12/25 15:10 BP 100/64 03/12/25 15:10 Pulse Ox 90 L 03/12/25 15:10 Oxygen Delivery Method Room Air 03/12/25 15:10 BMI result Body Mass Index 25.3 Assessment & Plan Assessment & Plan (1) Lymphedema: Code(s): I89.0 - Lymphedema, not elsewhere classified Plan: The management of the patient's lower extremity lymphedema currently involves the use of compression stockings and elevation to facilitate fluid movement, with instructions to follow up regarding replacement pneumatic compression if possible. I have messaged Dr Meadows to facilitate obtaining a new one, if possible. COPD symptoms remain stable, not requiring immediate adjustments. Past CHF diagnosis does not currently warrant diuretic treatment given normal EF, but establishing care with a new education general manager is advised. The patient is encouraged to continue using the walker, I have messaged her PCP with her request for a powered wheelchair. Coordination with healthcare providers ensures consistent management across her health needs. Patient was informed and verbally consented to the use of an ambient scribe for clinic note documentation during this visit. Coding Level of Care Code Est Pt Level 4 (52028) Diagnoses Lymphedema I89.0
--- OUTSIDE RECORDS SUMMARY | 2025-03-12 16:45 | XMS_ITS | Data Portability ---
Author Organization [facility] Address [address] [address] [place] [address] Care Team Providers Care Business Ethics Professor Name Role Phone [facility] Primary Care Provider [phone] SILVESTRE CARY Referring Provider ANA GODINEZ Primary [...] has been made and she needs a city route driver on the day of the procedure. [...] has been made and she needs a city route driver on the day of the procedure. [...] has been made and she needs a city route driver on the day of the procedure. [...] By Organization Details Last Modified Time 12/04/2018 22071 She was advised to continue with activities as tolerated. [email or web address] Not available 12/04/2018 10:03:43 12/19/2018 [id number] She was advised to continue with activities as tolerated [email or web address] Not available 12/19/2018 10:40:55 08/04/2020 [id number] She was advised to continue with activities as tolerated. Telehealth visit: The patient was located at home for this telephone electronic visit and gave consent for this visit to be conducted via telehealth. 15 minutes was spent on this call and greater than 50% of the visit was spent on counseling and coordination of care. [email or web address] Not available 08/04/2020 09:57:58 09/10/2020 [id number] She was advised to continue with activities as tolerated [email or web address] Not available 09/10/2020 13:22:57 10/20/2020 [id number] She was advised to continue with activities [...] Recorded Time Degeneration of cervical intervertebral disc 93759178 Active Mora rascon MD [address] [place] [address] , [address], [facility] [place], [address], [place] [facility] 6 15:49:37 Muscle pain 52590897 Active Mora rascon MD [address] , [address], [place], [place], [place] [facility] 6 15:49:37 Cervical spondylosis without myelopathy 587179185 Active Mora rascon MD [address] , [address], [place], [place], [place] [facility] 6 15:49:37 Spinal stenosis of lumbar region 44811197 Active 2016 Mora rascon MD [address] , [address], [facility] [place], [place], [place] [facility] 7 09:23:41 Displacement of lumbar intervertebral disc without myelopathy 24063397 Active 2016 Mora rascon MD [address] , [address], [place], [place], [place] [facility] 7 09:23:42 Lumbosacral radiculitis 72343756 Active 2016 Mora rascon MD [address] , [address], [place], [place], [place] [facility] 7 09:23:46 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 Mora rascon MD [address] , [address], [place], [place], [place] [facility] 6 15:41:12 Shoulder joint pain 001593833 Active Mora rascon MD [address] , [address], [place], [place], [place] [facility] 6 15:41:12 Problem Notes None recorded. Procedures Surgical History Date Name Laterality Status Provider Name and Address Organization Details Recorded Time 09/10/20 20 Lumbar Epidural steroid injection under fluoroscopic guidance completed Mora Reilly MD [address] [facility] , [address], [place], [address], [place] [facility] 09/10/2020 13:23:36 12/20/19 19 Lumbar Epidural steroid injection under fluoroscopic guidance completed Mora Reilly MD [address] , [address], [place], [address], [place] [facility] 12/19/2018 10:41:30 02/29/20 18 Lumbar Epidural steroid injection under fluoroscopic guidance completed Mora Reilly MD [address] , [address], [place], [address], [place] [facility] 02/28/2018 15:56:59 09/21/20 17 Lumbar Epidural steroid injection under fluoroscopic guidance completed Mora Reilly MD [address] , [address], [place], [address], [place] [facility] 09/22/2017 08:35:14 07/27/20 17 Lumbar Epidural steroid injection under fluoroscopic guidance completed Mora Reilly MD [address] , [address], [place], [address], [place] [facility] 07/29/2017 08:55:44 07/30/20 16 Trigger Point Injections under ultrasound guidance completed Mora Reilly MD [address] , [address], [place], [address], [place] [facility] 08/14/2016 19:23:11 07/01/20 16 Costochondral steroid injection under ultrasound guidance. completed Mora Reilly MD [address] , [address], [place], [address], [place] [facility] 07/01/2016 09:57:07 06/17/20 16 Trigger Point Injections under ultrasound guidance completed Mora Reilly MD [address] [facility] , [address], [place], [address], [place] [facility] 06/19/2016 10:54:38 06/02/20 16 Trigger Point Injections under ultrasound guidance completed Mora Reilly MD [address] , [address], [place], [address], [place] [facility] 06/02/2016 15:50:51 08/13/20 15 Costochondral steroid injection under ultrasound guidance. completed Mora Reilly MD [address] , [address], [place], [address], [place] [facility] 08/14/2015 09:44:42 05/29/20 15 Costochondral steroid injection under ultrasound guidance. completed Mora Reilly MD [address] , [address], [place], [address], [place] [facility] 05/29/2015 12:01:41 02/26/20 15 Costochondral steroid injection under ultrasound guidance. completed Mora Reilly MD [address] , [address], [place], [address], [place] [facility] 02/25/2015 11:18:19 10/01/20 14 Costochondral steroid injection under ultrasound guidance. completed Mora Reilly MD [address] , [address], [place], [address], [place] [facility] 10/11/2014 15:19:47 09/03/20 14 Costochondral steroid injection under ultrasound guidance. completed Mora Reilly MD [address] , [address], [place], [address], [place] [facility] 09/03/2014 11:25:05 08/08/20 14 Costochondral steroid injection under ultrasound guidance. completed Mora Reilly MD [address] , [address], [place], [address], [place] [facility] 08/08/2014 15:58:12 02/20/20 13 Sacroiliac Joint Steroid Injections, using Fluoroscopy completed Mora Reilly MD [address] , [address], [place], [address], [place] [facility] 02/20/2013 09:59:03 11/20/19 13 Sacroiliac Joint Steroid Injections, using Fluoroscopy completed Mora Reilly MD [address] , [address], [place], [address], [place] [facility] 11/20/2012 15:55:16 10/18/19 13 Subacromial bursal injection completed Mora Reilly MD [address] , [address], [place], [address], [place] [facility] 10/19/2012 13:28:34 09/18/20 12 Sacroiliac Joint Steroid Injections, using Fluoroscopy completed Mora Reilly MD [address] , [address], [place], [address], [place] [facility] 09/19/2012 [...] Name and Address Organization Details Recorded Time 34953 Keppra medicatio n Not available Not available Not available 05/29/2015 76245 7 RxNorm Sever e Menta tion issue s Denice Smithzier null, [place] [facility] 5 10:33:45 4281 morphine medicatio n Not available Not available Not available 09/13/2012 7052 RxNorm Swell ing Denice Smithzier null, [place] [facility] 2 10:58:56 4282 Dilantin medicatio n Not available Not available Not available 09/13/201271863 0 RxNorm Sever menta tion issue s [...] Not Available Not Available Not Available Afluria 7323-9733( PF) 45 mcg (15 mcg x 3)/0.5 [...] Social History Question Answer Notes LastModified by Domain Media Details LastModified Time Tobacco Smoking Status Current Every Day Smoker Not Available [facility] 07/25/2020 03:16:10 Are You Blind Or Do You Have Difficulty Seeing? No [id number] Information not available 07/25/2020 Are You Deaf Or Do You Have Serious Difficulty Hearing? Yes [id number] Information not available 07/25/2020 Which Illicit Or Recreational Drugs Have You Used? No Sober X 4 1/2 Years [id number] Information not available 07/25/2020 Education 12 Some College Information not available 09/13/2012 What Is The Highest Grade Or Level Of School You Have Completed Or The Highest Degree You Have Received? [id number] Information not available 07/25/2020 How Many Days Of Moderate To Strenuous Exercise, Like A Brisk Walk, Did You Do In The Last 7 Days? 0 [id number] Information not available 07/25/2020 On Those Days That You Engage In Moderate To Strenuous Exercise, How Many Minutes, On Average, Do You Exercise? 2 [id number] Information not available 07/25/2020 How Hard Is It For You To Pay For The Very Basics Like Food, Housing, Medical Care, And Heating? [id number] Information not available 12/04/2018 Live Alone Or With Others? With Others House Mate Information not available 12/04/2018 Marital Status Informatio n not available 12/04/2018 What Was The Date Of Your Most Recent Tobacco Screening? 12/19/2018 [id number] Information not available 07/25/2020 Do You Have Difficulty Walking Or Climbing Stairs? Yes [id number] Information not available 07/25/2020 Sex: Unknown Functional Status Question Answer Note LastModified by Domain [employer] Details LastModified Time What is your level of alcohol consumption? None [id number] Information not available 07/25/2020 Are you currently employed? No [id number] Information not available 07/25/2020 Do you have difficulty doing errands alone? 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 Yes Sometimes [id number] Information not available 07/25/2020 Mental Status Question Answer Note LastModified by Organizat ion Details LastModified Time Do you feel stressed (tense, restless, nervous, or anxious, or unable to sleep at night)? [id number] Information not available 07/25/2020 Do you have difficulty concentrating, remembering or making decisions? Yes [id number] Information no t available 07/25/2020 Family History Nothing Reported. Medical History Condition Response Diabetes Y Coronary Artery Disease Y Arthritis Y Migrane Y Seizures/Epilepsy Y GERD/Reflux Y High Cholesterol Y Hypertension Y COPD Y Gynecological HistoryNo gynecological history recorded. Obstetrics History GPAL:G 0 P 0 0 0 0 Past Encounters Encounter ID Performer Location Encounter Start Date Encounter Closed Date Diagnosis/Indication Diagnosis SNOMED-CT Code Diagnosis ICD10 Code Diagnosis Note [id number] Mora Reilly MD PAIN OFFICE [address] [facility] [address] 09/13/2012 10:32:36 09/13/2012 15:53:15 [id number] Mora Reilly MD PAIN OFFICE [address] [facility] [place] [address] 09/18/2012 14:40:11 09/18/2012 15:42:39 [id number] Mora Reilly MD PAIN OFFICE [address] [facility] [place] [address] 10/18/2012 13:03:22 10/18/2012 16:07:14 [id number] Mora Reilly MD PAIN OFFICE [address] [facility] [place] [address] 11/20/2012 12:53:54 11/20/2012 15:34:59 [id number] Mora Reilly MD [facility] PA[facility]ICE [address] [place] [address] 02/06/2013 10:05:10 02/06/2013 14:35:05 [id number] Mora Reilly MD [facility] PA[facility] [address] [place] [address] 02/19/2013 13:29:03 02/19/2013 15:51:22 [id number] Mora Reilly MD [facility] PA[facility]ICE [address] [place] [address] 07/17/2014 08:10:56 07/30/2014 15:16:18 Tietze's disease 93039171 [id number] Mora Reilly MD [facility] PAIN OFFICE [address] [place] [address] 08/08/2014 13:32:47 08/08/2014 15:59:34 Tietze's disease 18811409 [id number] Mora Reilly MD [facility] PA[facility] [address] [place] [address] 09/03/2014 10:35:08 09/03/2014 11:26:47 Inflammation of sacroiliac joint 08872101 Tietze's disease 29348792 Shoulder joint pain 790257839 [id number] Mora Reilly MD [facility] PAIN OFFICE [address] [place] [address] 10/01/2014 09:40:42 10/11/2014 15:21:30 Inflammation of sacroiliac joint 60719599 Tietze's disease 88606479 Shoulder joint pain 990142504 [id number] Mora Reilly MD [facility] PAIN OFFICE [address] [place] [address] 12/04/2014 10:47:37 12/04/2014 13:15:12 Inflammation of sacroiliac joint 65310430 Tietze's disease 67023531 Shoulder joint pain 850949465 [id number] Mora Reilly MD [facility] PA[facility]ICE [address] [place] [address] 02/25/2015 08:34:47 02/25/2015 13:20:22 Inflammation of sacroiliac joint 61465526 Tietze's disease 03750740 Shoulder joint pain 209617764 [id number] Mora Reilly MD PAIN OFFICE [address] [place] [address] 05/29/2015 10:04:54 05/29/2015 12:03:12 Inflammation of sacroiliac joint 63239821 Tietze's disease 39550738 Shoulder joint pain 570232018 [id number] Mora Reilly MD [facility] PA[facility] OFFICE [address] [place] [address] 08/13/2015 13:06:44 08/14/2015 09:45:21 Inflammation of sacroiliac joint 69992184 M46.1 Tietze's disease 1712832 9 M94.0 Shoulder joint pain 2679 26460 M25.512 [id number] Mora Reilly MD PAIN OFFICE [address] [place] [address] 12/30/2015 12:55:59 12/30/2015 13:53:52 Inflammation of sacroiliac joint 28999328 M46.1 [id number] Mora Reilly MD PAIN OFFICE [address] [place] [address] 06/02/2016 11:20:00 06/02/2016 15:51:02 Cervical spondylosis without myelopathy 349587605 M47.812 Muscle pain 90063088 M79 .1 Degenerati on of cervical intervertebral disc 19679166 M50.30 [id number] Mora Reilly MD PAIN OFFICE [address] [place] [address] 06/17/2016 08:53:49 06/19/2016 11:01:16 Cervical spondylosis without myelopathy 134637762 M47.812 Muscle pain 98009099 M79 .1 Degenerati on of cervical intervertebral disc 11291379 M50.30 [id number] Mora Reilly MD PAIN OFFICE [address] [facility] [place] [address] 07/01/2016 09:26:06 07/01/2016 13:27:19 Inflammation of sacroiliac joint 93374875 M46.1 Tietze's disease 5463744 9 M94.0 Shoulder joint pain 2679 00836 M25.512 [id number] Mora Reilly MD [facility] PA[facility] [address] [facility] [place] [address] 07/30/2016 09:08:52 08/22/2016 11:46:05 Cervical spondylosis without myelopathy 668159398 M47.812 Muscle pain 77113382 M79 .1 Degenerati on of cervical intervertebral disc 07638299 M50.30 [id number] Mora Reilly MD PAIN OFFICE [address] [place] [address] 07/07/2017 08:16:05 07/07/2017 09:24:56 Lumbosacral radiculitis 91726744 M54.17 Spinal abram nosis of lumbar region 50591671 M48.06 Displaceme nt of lumbar intervertebral disc without myelopathy 34474843 M51.26 Inflammati on of sacroiliac joint 92011752 M46.1 [id number] Mora Reilly MD PAIN OFFICE [address] [facility] [place] [address] 07/27/2017 09:52:38 07/29/2017 14:32:39 Lumbosacral radiculitis 25362546 M54.17 Spinal abram nosis of lumbar region 94764373 M48.062 Displaceme nt of lumbar intervertebral disc without myelopathy 46299129 M51.26 Inflammati on of sacroiliac joint 48777312 M46.1 [id number] Mora Reilly MD PAIN OFFICE [address] [facility] [place] [address] 08/29/2017 09:17:14 08/29/2017 10:31:46 Lumbosacral radiculitis 86238759 M54.17 Spinal abram nosis of lumbar region 07026255 M48.062 Displaceme nt of lumbar intervertebral disc without myelopathy 03413559 M51.26 Inflammati on of sacroiliac joint 24981888 M46.1 [id number] Mora Reilly MD PAIN OFFICE [address] [place] [address] 09/21/2017 11:43:42 09/22/2017 09:27:57 Lumbosacral radiculitis 59289022 M54.17 Spinal abram nosis of lumbar region 31103850 M48.062 Displaceme nt of lumbar intervertebral disc without myelopathy 93896300 M51.26 Inflammati on of sacroiliac joint 98791552 M46.1 [id number] Mora Reilly MD PAIN OFFICE [address] [place] [address] 02/28/2018 13:30:09 02/28/2018 15:59:37 Lumbosacral radiculitis 89882814 M54.17 Spinal abram nosis of lumbar region 77479666 M48.062 Displaceme nt of lumbar intervertebral disc without myelopathy 49577301 M51.26 Inflammati on of sacroiliac joint 16323668 M46.1 [id number] Mora Reilly MD PAIN OFFICE [address] [place] [address] 12/04/2018 09:17:20 12/04/2018 10:07:57 Lumbosacral radiculitis 77469471 M54.17 Spinal abram nosis of lumbar region 40621912 M48.062 Displaceme nt of lumbar intervertebral disc without myelopathy 56334016 M51.26 Inflammati on of sacroiliac joint 28707610 M46.1 [id number] Mora Reilly MD PAIN OFFICE [address] [place] [address] 12/19/2018 08:26:46 12/19/2018 10:59:08 Lumbosacral radiculitis 19306642 M54.17 Spinal abram nosis of lumbar region 57101025 M48.062 Displaceme nt of lumbar intervertebral disc without myelopathy 54785084 M51.26 Inflammati on of sacroiliac joint 06392986 M46.1 [id number] Mora Reilly MD [facility] PAIN OFFICE [address] [facility] [place] [address] 08/04/2020 09:52:18 08/04/2020 13:06:36 Displacement of lumbar intervertebral disc without myelopathy 29606559 M51.26 Lumbosacra l radiculitis 45484683 M54.17 Spinal abram nosis of lumbar region 88365025 M48.062 Inflammati on of sacroiliac joint 24915487 M46.1 [id number] Mora Reilly MD [facility] PAIN OFFICE [address] [facility] [place] [address] 09/10/2020 12:51:41 09/10/2020 13:26:05 Lumbosacral radiculitis 18299218 M54.17 Spinal abram nosis of lumbar region 04389909 M48.062 Displaceme nt of lumbar intervertebral disc without myelopathy 12530353 M51.26 Inflammati on of sacroiliac joint 07846353 M46.1 [id number] Mora Reilly MD [facility] PAIN OFFICE [address] [facility] [address] 10/20/2020 09:03:15 10/20/2020 09:11:00 Displacement of lumbar intervertebral disc without myelopathy 66855444 M51.26 Lumbosacra l radiculitis 07620104 M54.17 Spinal abram nosis of lumbar region 32257122 M48.062 Inflammati on of sacroiliac joint 64683475 M46.1 Health Concerns Section Related Observation LastModified by Organization Detai ls LastModified Time None Recorded Concern Status LastModified by Organization Details LastModified Time None Recorded Advance Directives Directive None Recorded Payers Encounter Date Sequence Insurance Name Policy Number Policy Marie Covered Member ID Marie Member ID Guarantor Name 12/04/2018 1 [place]: [employer] Yuli Jose R Smithhillette [id number] Yuli Smithhillette 12/19/2018 1 [place] [employer] Yuli A Bouthillette [id number] Yuli Bouthillette 08/04/2020 1 [place] [facility] Yuli Rahmanllette [id number] Yuli Smithhillette 09/10/2020 1 [place] [facility] Yuli Smithhillette [id number] Yuli Smithhillette 10/20/2020 1 [place]ARE [place]: [facility] Yuli Smithhillette [id number] Ylui Rahmanllette Notes Date Note Type Note Provider Name [...] bowel incontinence. Mora Reilly MD [address] [facility] , [address], [place], [address], [place] [facility] 12/04/2018 13:52:29 12/19/2018 text/html She is here for a repeat lumbar epidural steroid injection under fluoroscopic guidance. Mora Reilly MD [address] [facility] , [address], [place], [address], [place] [facility] 12/21/2018 10:09:19 08/04/2020 text/html She [...] bowel incontinence. Mora Reilly MD [address] [facility] , [address], [place], [address], [place] [facility] 08/05/2020 08:21:38 09/10/2020 text/html She is here for a lumbar epidural steroid injection under fluoroscopic guidance. Mora Reilly MD [address] [facility] , [address], [place], [address], [facility] Pain Management 09/11/2020 16:25:02 10/20/2020 [...] bowel incontinence. Mora Reilly MD [address] [facility] , [address], [place], [address], [facility] Pain Management 10/20/2020 10:25:18 OBGyn Episode No OBEpisode recorded.
== END 2025-03-12 15:38 | disposition home or self-care (01) ==
PROVIDERS: PCP Nurse Practitioner Family; Visit Provider Physician Assistant
DX: I89.0 Lymphedema, not elsewhere classified (principal)

== ENCOUNTER → 2025-03-12 15:07 | Outpatient (BNVA) | payer MEDICARE, MEDICAID, SELFPAY | PROVIDERS: PCP Nurse Practitioner Family; Visit Provider Physician Assistant | DX: I89.0 Lymphedema, not elsewhere classified (principal) | CPT/HCPCS: 99212 ==

== ENCOUNTER 2025-03-28 09:13 | Outpatient (REF) | payer MEDICARE, MEDICAID, SELFPAY | END 2025-03-28 09:14 | disposition home or self-care (01) | LOC: HO.HMGCLNP 09:13 | PROVIDERS: PCP Nurse Practitioner Family; Visit Provider Internal Medicine Endocrinology, Diabetes & Metabolism | DX: Z13.89 Encounter for screening for other disorder (principal) ==

== ENCOUNTER 2025-03-28 10:28 | Outpatient (REF) | payer MEDICARE, MEDICAID, SELFPAY ==
--- OUTSIDE RECORDS SUMMARY | 2025-03-28 11:56 | XMS_ITS | Data Portability ---
Author Organization [facility] Address [address] [facility] [address] [place] [address] Care Team Providers Care Ip Architect Name Role Phone [facility] Primary Care Provider [phone] SILVESTRE CARY Referring Provider ANA GODINEZ Primary [...] has been made and she needs a driver sales on the day of the procedure. [email or web address] [...] has been made and she needs a driver sales on the day of the procedure. tmanikantan [...] has been made and she needs a driver sales on the day of the procedure. She [...] By Organization Details Last Modified Time 12/04/2018 [id number] She was advised to continue with activities as tolerated. [email or web address] Not available 12/04/2018 10:03:43 12/19/2018 04327 She was advised to continue with activities as tolerated [email or web address] Not available 12/19/2018 10:40:55 08/04/2020 [id number] She was advised to continue with activities as tolerated. Telehealth visit: The patient was located at home for this telephone electronic visit and gave consent for this visit to be conducted via telehealth. 15 minutes was spent on this call and greater than 50% of the visit was spent on counseling and coordination of care. [email or web address] Not available 08/04/2020 09:57:58 09/10/2020 [id number] She was advised to continue with activities as tolerated [email or web address] Not available 09/10/2020 13:22:57 10/20/2020 [id number] She was advised to continue with activities [...] Recorded Time Degeneration of cervical intervertebral disc 81797071 Active Mora rascon MD [address] [place] [address] , [address], [facility] [place], [address], [place] [facility] 6 15:49:37 Muscle pain 30896075 Active Mora rascon MD [address] , [address], [place], 9, [place] [facility] 6 15:49:37 Cervical spondylosis without myelopathy 343152202 Active Mora rascon MD [address] , [address], [place], 9, [place] [facility] 6 15:49:37 Spinal stenosis of lumbar region 67389112 Active 2016 Mora rascon MD [address] , [address], [facility] [place], 9, [place] [facility] 7 09:23:41 Displacement of lumbar intervertebral disc without myelopathy 77031281 Active 2016 Mora rascon MD [address] , [address], [place], 9, [place] [facility] 7 09:23:42 Lumbosacral radiculitis 43556801 Active 2016 Mora rascon MD [address] , [address], [place], 9, [place] [facility] 7 09:23:46 Tietze's disease 18586374 Active Mora rascon MD [address] , [address], [place], 9, [place] [facility] 6 15:41:12 Inflammation of sacroiliac joint 54241493 Active Right worse than left. Mora rascon MD [address] , [address], [place], 9, [place] [facility] 6 15:41:12 Shoulder joint pain 240704136 Active Mora rascon MD [address] , [address], [place], 9, [place] [facility] 6 15:41:12 Problem Notes None recorded. Procedures Surgical History Date Name Laterality Status Provider Name and Address Organization Details Recorded Time 09/10/20 20 Lumbar Epidural steroid injection under fluoroscopic guidance completed Mora Reilly MD [address] [facility] , [address], [place], [address], [place] [facility] 09/10/2020 13:23:36 12/20/19 19 Lumbar Epidural steroid injection under fluoroscopic guidance completed Mora Reilly MD [address] [facility] , [address], [place], [address], [place] [facility] 12/19/2018 10:41:30 02/29/20 18 Lumbar Epidural steroid injection under fluoroscopic guidance completed Mora Reilly MD [address] [facility] , [address], [place], [address], [place] [facility] 02/28/2018 15:56:59 09/21/20 17 Lumbar Epidural steroid injection under fluoroscopic guidance completed Mora Reilly MD [address] [facility] , [address], [place], [address], [place] [facility] 09/22/2017 08:35:14 07/27/20 17 Lumbar Epidural steroid injection under fluoroscopic guidance completed Mora Reilly MD [address] [facility] , [address], [place], [address], [place] [facility] 07/29/2017 08:55:44 07/30/20 16 Trigger Point Injections under ultrasound guidance completed Mora Reilly MD [address] [facility] , [address], [place], [address], [place] [facility] 08/14/2016 19:23:11 07/01/20 16 Costochondral steroid injection under ultrasound guidance. completed Mora Reilly MD [address] [facility] , [address], [place], [address], [place] [facility] 07/01/2016 09:57:07 06/17/20 16 Trigger Point Injections under ultrasound guidance completed Mora Reilly MD [address] [facility] , [address], [place], [address], [place] [facility] 06/19/2016 10:54:38 06/02/20 16 Trigger Point Injections under ultrasound guidance completed Mora Reilly MD [address] , [address], [place], [address], [place] [facility] 06/02/2016 15:50:51 08/13/20 15 Costochondral steroid injection under ultrasound guidance. completed Mora Reilly MD [address] , [address], [place], [address], [place] [facility] 08/14/2015 09:44:42 05/29/20 15 Costochondral steroid injection under ultrasound guidance. completed Mora Reilly MD [address] , [address], [place], [address], [place] [facility] 05/29/2015 12:01:41 02/26/20 15 Costochondral steroid injection under ultrasound guidance. completed Mora Reilly MD [address] , [address], [place], [address], [place] [facility] 02/25/2015 11:18:19 10/01/20 14 Costochondral steroid injection under ultrasound guidance. completed Mora Reilly MD [address] , [address], [place], [address], [place] [facility] 10/11/2014 15:19:47 09/03/20 14 Costochondral steroid injection under ultrasound guidance. completed Mora Reilly MD [address] , [address], [place], [address], [place] [facility] 09/03/2014 11:25:05 08/08/20 14 Costochondral steroid injection under ultrasound guidance. completed Mora Reilly MD [address] , [address], [place], [address], [place] [facility] 08/08/2014 15:58:12 02/20/20 13 Sacroiliac Joint Steroid Injections, using Fluoroscopy completed Mora Reilly MD [address] , [address], [place], [address], [place] [facility] 02/20/2013 09:59:03 11/20/19 13 Sacroiliac Joint Steroid Injections, using Fluoroscopy completed Mora Reilly MD [address] , [address], [place], [address], [place] [facility] 11/20/2012 15:55:16 10/18/19 13 Subacromial bursal injection completed Mora Reilly MD [address] , [address], [place], [address], [place] [facility] 10/19/2012 13:28:34 09/18/20 12 Sacroiliac Joint Steroid Injections, using Fluoroscopy completed Mora Reilly MD [address] , [address], [place], [address], [place] [facility] 09/19/2012 [...] Name and Address Organization Details Recorded Time 43071 Keppra medicatio n Not available Not available Not available 05/29/2015 48819 7 RxNorm Sever e Menta tion issue s Denice Smithzier null, [place] [facility] 5 10:33:45 4281 morphine medicatio n Not available Not available Not available 09/13/2012 7052 RxNorm Swell ing Denice Smithzier null, [place] [facility] 2 10:58:56 4282 Dilantin medicatio n Not available Not available Not available 09/13/201239700 0 RxNorm Sever menta tion issue s [...] Not Available Not Available Not Available [facility] with Lutein 0.4 mg-300 mcg-250 mcg tablet [...] Not Available Not Available Not Available Afluria 8206-2138( PF) 45 mcg (15 mcg x 3)/0.5 [...] Social History Question Answer Notes LastModified by [employer] Details LastModified Time Tobacco Smoking Status Current Every Day Smoker Not Available [facility] 07/25/2020 03:16:10 Are You Blind Or Do You Have Difficulty Seeing? No [id number] Information not available 07/25/2020 Are You Deaf Or Do You Have Serious Difficulty Hearing? Yes [id number] Information not available 07/25/2020 Which Illicit Or Recreational Drugs Have You Used? No Sober X 4 1/2 Years [id number] Information not available 07/25/2020 Education 12 Some College Information not available 09/13/2012 What Is The Highest Grade Or Level Of School You Have Completed Or The Highest Degree You Have Received? [id number] [id number] Information not available 07/25/2020 How Many Days Of Moderate To Strenuous Exercise, Like A Brisk Walk, Did You Do In The Last 7 Days? 0 [id number] Information not available 07/25/2020 On Those Days That You Engage In Moderate To Strenuous Exercise, How Many Minutes, On Average, Do You Exercise? 2 [id number] Information not available 07/25/2020 How Hard Is It For You To Pay For The Very Basics Like Food, Housing, Medical Care, And Heating? [id number] Information not available 12/04/2018 Live Alone Or With Others? With Others House Mate Information not available 12/04/2018 Marital Status Informatio n not available 12/04/2018 What Was The Date Of Your Most Recent Tobacco Screening? 12/19/2018 [id number] Information not available 07/25/2020 Do You Have Difficulty Walking Or Climbing Stairs? Yes [id number] Information not available 07/25/2020 Sex: Unknown Functional Status Question Answer Note LastModified by [employer] Details LastModified Time What is your level of alcohol consumption? None [id number] Information not available 07/25/2020 Are you currently employed? No [id number] Information not available 07/25/2020 Do you have difficulty doing errands alone? 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 Yes Sometimes [id number] Information not available 07/25/2020 Mental Status Question Answer Note LastModified by Organizat ion Details LastModified Time Do you feel stressed (tense, restless, nervous, or anxious, or unable to sleep at night)? [id number] Information not available 07/25/2020 Do you have difficulty concentrating, remembering or making decisions? Yes [id number] Information no t available 07/25/2020 Family History [...] SNOMED-CT Code Diagnosis ICD10 Code Diagnosis Note [id number] Mora Reilly MD PAIN OFFICE [address] [place] [address] 09/13/2012 10:32:36 09/13/2012 15:53:15 52943 Mora Reilly MD PAIN OFFICE [address] [facility] [place] [address] 09/18/2012 14:40:11 09/18/2012 15:42:39 17259 Mora Reilly MD PAIN OFFICE [address] [facility] [place] [address] 10/18/2012 13:03:22 10/18/2012 16:07:14 31233 Mora Reilly MD PAIN OFFICE [address] [facility] [place] [address] 11/20/2012 12:53:54 11/20/2012 15:34:59 00443 Mora Reilly MD [facility] PAIN OFFICE [address] [place] [address] 02/06/2013 10:05:10 02/06/2013 14:35:05 50403 Mora Reilly MD [facility] PA[facility]ICE [address] [place] [address] 02/19/2013 13:29:03 02/19/2013 15:51:22 19510 Mora Reilly MD [facility] PAIN OFFICE [address] [place] [address] 07/17/2014 08:10:56 07/30/2014 15:16:18 Tietze's disease 72018821 67915 Mora Reilly MD [facility] PAIN OFFICE [address] [place] [address] 08/08/2014 13:32:47 08/08/2014 15:59:34 Tietze's disease 80778229 14130 Mora Reilly MD [facility] PAIN OFFICE [address] [place] [address] 09/03/2014 10:35:08 09/03/2014 11:26:47 Inflammation of sacroiliac joint 99877516 Tietze's disease 98505095 Shoulder joint pain 757376009 45263 Mora Reilly MD [facility] PAIN OFFICE [address] [place] [address] 10/01/2014 09:40:42 10/11/2014 15:21:30 Inflammation of sacroiliac joint 24200110 Tietze's disease 41210970 Shoulder joint pain 219333022 79136 Mora Reilly MD [facility] PAIN OFFICE [address] [place] [address] 12/04/2014 10:47:37 12/04/2014 13:15:12 Inflammation of sacroiliac joint 30569033 Tietze's disease 00346481 Shoulder joint pain 606597586 16764 Mora Reilly MD [facility] PAIN OFFICE [address] [place] [address] 02/25/2015 08:34:47 02/25/2015 13:20:22 Inflammation of sacroiliac joint 77065977 Tietze's disease 34664277 Shoulder joint pain 271574520 74522 Mora Reilly MD PAIN OFFICE [address] [place] [address] 05/29/2015 10:04:54 05/29/2015 12:03:12 Inflammation of sacroiliac joint 36701558 Tietze's disease 04562954 Shoulder joint pain 429755397 78506 Mora Reilly MD [facility] PAIN OFFICE [address] [place] [address] 08/13/2015 13:06:44 08/14/2015 09:45:21 Inflammation of sacroiliac joint 11485715 M46.1 Tietze's disease 4815096 9 M94.0 Shoulder joint pain 2679 17039 M25.512 16050 Mora Reilly MD PAIN OFFICE [address] [place] [address] 12/30/2015 12:55:59 12/30/2015 13:53:52 Inflammation of sacroiliac joint 81296568 M46.1 14638 Mora Reilly MD PAIN OFFICE [address] [place] [address] 06/02/2016 11:20:00 06/02/2016 15:51:02 Cervical spondylosis without myelopathy 487015707 M47.812 Muscle pain 59739640 M79 .1 Degenerati on of cervical intervertebral disc 40552943 M50.30 39865 Mora Reilly MD PAIN OFFICE [address] [place] [address] 06/17/2016 08:53:49 06/19/2016 11:01:16 Cervical spondylosis without myelopathy 722675039 M47.812 Muscle pain 24521870 M79 .1 Degenerati on of cervical intervertebral disc 77308611 M50.30 87469 Mora Reilly MD PAIN OFFICE [address] [place] [address] 07/01/2016 09:26:06 07/01/2016 13:27:19 Inflammation of sacroiliac joint 71356438 M46.1 Tietze's disease 2859761 9 M94.0 Shoulder joint pain 2679 22301 M25.512 98817 Mora Reilly MD [facility] PAIN OFFICE [address] [place] [address] 07/30/2016 09:08:52 08/22/2016 11:46:05 Cervical spondylosis without myelopathy 162627755 M47.812 Muscle pain 08069735 M79 .1 Degenerati on of cervical intervertebral disc 91019791 M50.30 27691 Mora Reilly MD PAIN OFFICE [address] [place] [address] 07/07/2017 08:16:05 07/07/2017 09:24:56 Lumbosacral radiculitis 47224355 M54.17 Spinal abram nosis of lumbar region 56806704 M48.06 Displaceme nt of lumbar intervertebral disc without myelopathy 08204870 M51.26 Inflammati on of sacroiliac joint 61441268 M46.1 27532 Mora Reilly MD PAIN OFFICE [address] [place] [address] 07/27/2017 09:52:38 07/29/2017 14:32:39 Lumbosacral radiculitis 46308442 M54.17 Spinal abram nosis of lumbar region 34738413 M48.062 Displaceme nt of lumbar intervertebral disc without myelopathy 89522353 M51.26 Inflammati on of sacroiliac joint 52077898 M46.1 15146 Mora Reilly MD PAIN OFFICE [address] [place] [address] 08/29/2017 09:17:14 08/29/2017 10:31:46 Lumbosacral radiculitis 19821665 M54.17 Spinal abram nosis of lumbar region 13830133 M48.062 Displaceme nt of lumbar intervertebral disc without myelopathy 93444741 M51.26 Inflammati on of sacroiliac joint 60770390 M46.1 00756 Mora Reilly MD PAIN OFFICE [address] [place] [address] 09/21/2017 11:43:42 09/22/2017 09:27:57 Lumbosacral radiculitis 06347962 M54.17 Spinal abram nosis of lumbar region 31477432 M48.062 Displaceme nt of lumbar intervertebral disc without myelopathy 83758901 M51.26 Inflammati on of sacroiliac joint 86112847 M46.1 [id number] Mora Reilly MD PAIN OFFICE [address] [place] [address] 02/28/2018 13:30:09 02/28/2018 15:59:37 Lumbosacral radiculitis 20788867 M54.17 Spinal abram nosis of lumbar region 43964149 M48.062 Displaceme nt of lumbar intervertebral disc without myelopathy 69860797 M51.26 Inflammati on of sacroiliac joint 86991739 M46.1 30276 Mora Reilly MD PAIN OFFICE [address] [place] [address] 12/04/2018 09:17:20 12/04/2018 10:07:57 Lumbosacral radiculitis 15261578 M54.17 Spinal abram nosis of lumbar region 03322623 M48.062 Displaceme nt of lumbar intervertebral disc without myelopathy 89644292 M51.26 Inflammati on of sacroiliac joint 48177189 M46.1 19259 Mora Reilly MD PAIN OFFICE [address] [place] [address] 12/19/2018 08:26:46 12/19/2018 10:59:08 Lumbosacral radiculitis 17638735 M54.17 Spinal abram nosis of lumbar region 12854990 M48.062 Displaceme nt of lumbar intervertebral disc without myelopathy 74284609 M51.26 Inflammati on of sacroiliac joint 27721698 M46.1 16722 Mora Reilly MD [facility] PAIN OFFICE [address] [employer] [place] [address] 08/04/2020 09:52:18 08/04/2020 13:06:36 Displacement of lumbar intervertebral disc without myelopathy 41983872 M51.26 Lumbosacra l radiculitis 64685576 M54.17 Spinal abram nosis of lumbar region 33302027 M48.062 Inflammati on of sacroiliac joint 33008465 M46.1 83422 Mora Reilly MD [facility] PAIN OFFICE [address] [place] [address] 09/10/2020 12:51:41 09/10/2020 13:26:05 Lumbosacral radiculitis 92978717 M54.17 Spinal abram nosis of lumbar region 36543136 M48.062 Displaceme nt of lumbar intervertebral disc without myelopathy 39042283 M51.26 Inflammati on of sacroiliac joint 48546512 M46.1 75513 Mora Reilly MD [facility] PAIN OFFICE [address] [employer] [place] [address] 10/20/2020 09:03:15 10/20/2020 09:11:00 Displacement of lumbar intervertebral disc without myelopathy 69466662 M51.26 Lumbosacra l radiculitis 63713525 M54.17 Spinal abram nosis of lumbar region 77437401 M48.062 Inflammati on of sacroiliac joint 63900039 M46.1 Health Concerns Section Related Observation LastModified by Organization Detai ls LastModified Time None Recorded Concern Status LastModified by Organization Details LastModified Time None Recorded Advance Directives Directive None Recorded Payers Insurance Date Sequence Insurance Name Policy Number Policy Marie Covered Member ID Marie Member ID Guarantor Name 10/20/2020 1 [place] [facility]uli Duke [id number] Yuli Duke 10/20/2020 1 [facility] [place] [id number] Yuli Duke [id number] Yuli Duke 10/20/2020 1 MEDIC[place] B-[place]: [facility] Yuli Duke [id number] Yuli Duke Notes Date Note Type Note [...] or bowel incontinence. Mora Reilly MD [address] [address], [place], [address], [facility] - [facility] 12/04/2018 13:52:29 12/19/2018 text/html She is here for a repeat lumbar epidural steroid injection under fluoroscopic guidance. Mora Reilly MD [address] [address], [place], [address], [facility] - [facility] 12/21/2018 10:09:19 08/04/2020 [...] or bowel incontinence. Mora Reilly MD [address] [facility] [address] [facility] [address], [place], [address], [facility] - [facility] 08/05/2020 08:21:38 09/10/2020 text/html She is here for a lumbar epidural steroid injection under fluoroscopic guidance. Mora Reilly MD [address] [facility] , [facility] [address], [place], [address], [facility] - [facility] 09/11/2020 16:25:02 10/20/2020 [...] or bowel incontinence. Mora Reilly MD [address] [facility] , [address], [place], [address], [facility] 10/20/2020 10:25:18 OBGyn Episode No OBEpisode recorded.
[2025-03-28 13:28] LABS: Phosphorus 3.8 mg/dL (2.7-4.5)
[2025-03-28 14:06] LABS: Creatinine, mg/dL 45.69
[2025-03-28 14:07] LABS: Creatinine, 24Hr Urine 0.4 G/Day (1.0-2.0); Total Volume 24 Hour Urine 925 mL
[2025-03-29 18:34] LABS: Calcium, 24 Hr Urine 54 mg/24 h; Calcium/Creatinine Ratio 114 mg/g creat (30-275); Creatinine 24Hr Urine 0.47 g/24 h (0.50-2.15)
== END 2025-03-28 10:29 | disposition home or self-care (01) ==
LOC: HO.HMGCLDS 10:28
PROVIDERS: PCP Nurse Practitioner Family; Visit Provider Internal Medicine Endocrinology, Diabetes & Metabolism
DX: M81.0 Age-related osteoporosis without current pathological fracture (principal)
CPT/HCPCS: 36415; 82340; 82570; 84100; 86335

== ENCOUNTER 2025-04-17 13:04 | Outpatient (AMB) | payer MEDICARE, MEDICAID, SELFPAY ==
--- NOTE | 2025-04-17 13:11 | A.OFFVIS_ITS ---
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 Accompanied by: Unknown Allergies latex (LATEX) Allergy (Intermediate, Verified 04/17/25 14:01) RASH morphine (MORPHINE) Allergy (Intermediate, Verified 04/17/25 14:01) SWELLING alendronate sodium (From FOSAMAX) Allergy (Unknown, Verified 04/17/25 14:01) PER H+P levetiracetam (From KEPPRA) Adverse Reaction (Intermediate, Verified 04/17/25 14:01) DICKENS phenytoin (From DILANTIN) Adverse Reaction (Intermediate, Verified 04/17/25 14:01) CANT FUNCTION Medication List - Last Reviewed 04/17/25 by CURTIS Alcaraz albuterol sulfate 90 mcg/actuation (Ventolin HFA) 2 puffs inhalation Q6H PRN Arnuity Ellipta 100 mcg/actuation (fluticasone furoate) 1 inh inhalation DAILY NS aspirin 81 mg PO DAILY 90 days atorvastatin 80 mg PO DAILY 90 days [disposable brief-pull ups As directed] divalproex ER 500 mg PO TID doxepin 10 mg PO BEDTIME lansoprazole 30 mg PO BID levothyroxine 100 mcg PO DAILY loperamide 2 mg PO Q6H PRN metoclopramide HCl 10 mg PO QID primidone 50 mg PO TID sertraline 200 mg PO QAM zolpidem 10 mg PO BEDTIME HPI Comments Details: Yuli is a pleasant 59-year-old female patient of Dr. 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 She has a past medical history of esophageal stricture, tremors, cerebral microvascular disease, hiatal hernia, nicotine dependence, lumbar sacral pain, lumbar stenosis, lumbar radiculitis, multiple pulmonary nodules, COPD, osteoporosis, depression, hyperlipidemia, hypertension, myocardial infarction status post stent placement in 2004, coronary artery disease, cerebral atrophy, and seizures. She presents to the office today as a new patient for mixed urinary incontinence. In discussion with the patient today she reports since late last year she has been experiencing ongoing issues with mixed urinary incontinence. She reports typically utilizing 4-6 adult diapers per day. She reports episodes of stress incontinence, urge incontinence, as well as on sensed and since urinary incontinence. She does have a previous history of 3 vaginal deliveries in labors were uneventful. She denies hematuria, dysuria, foul smelling urine, flank pain, fever, and or chills. In office urinalysis results reviewed with the patient today. PVR 8 mL. We did discussed potential causes of incontinence as well as further treatment options and risks and benefits of these treatment options. She reports she is currently living at [facility] in has trialed pelvic floor therapy with her occupational therapist and has not found this helpful. All questions were answered. She reports currently she is utilizing [employer] for her incontinent pull-ups. She typically receives 120 further month and wears a size medium. She otherwise offers no other issues or concerns at this time. [facility] Medical History Urinary incontinence Epigastric pain Physical deconditioning Hypomagnesemia Abdominal pain Pleuritic pain Bilateral hip pain Bilateral knee pain Weakness Esophageal stricture Screening for cervical cancer Screening for colon cancer Pain in right leg Swelling of right lower extremity Breast cancer screening, high risk patient Edema Hypoglycemia Tremor Cerebral microvascular disease Hx of hiatal hernia Tubular adenoma of colon On beta matty at home Nicotine dependence, unspecified, uncomplicated Lumbosacral pain Lumbar stenosis Lumbar radiculitis Multiple pulmonary nodules COPD (chronic obstructive pulmonary disease) Osteoporosis Hypothyroid Depression Hyperlipidemia Hypertension Myocardial infarct CAD (coronary artery disease) Intracranial arachnoid cyst Cerebral atrophy Seizure Surgical History Hx of local excision of skin lesion History of foot surgery (~2013) History of tubal ligation History of heart artery stent (~2004) History of colonoscopy (~2018) History of appendectomy S/P dilatation of esophageal stricture (~2020) History of [place] fundoplication (~2019) History of esophagogastroduodenoscopy (EGD) (~2020) Family History Father Blood clots in brain Diabetes Polio Mother Breast cancer Hiatal hernia Sister Cancer Brother Myocardial infarction Family/Other Throat cancer Stomach cancer Paternal Grandmother Cancer Social History Household Members: Other Housing: Apartment Alcohol intake: current Alcohol intake frequency: does not drink Patient Tobacco Use Status: Current everyday Tobacco user Tobacco use type: Cigarette Cigarette Packs Per Day: 0.5 Cigarettes Per Day: 10.0 Years Smoked: 42 e-Cigarette/Vaping Use: Never Used Second Hand Smoke Exposure: No Current occupational status: disabled Cognitive needs: No Hearing needs: No Vision needs: No Review of Systems Eyes Reports no additional complaints ENT Reports no additional complaints Card Reports as per HPI Resp Reports as per HPI GI Reports as per HPI Reports as per HPI Musc Reports as per HPI Neuro Reports as per HPI Psych Reports no additional complaints Endo Reports as per HPI Physical Exam Const General: cooperative, comfortable, no acute distress, well developed, alert and awake Orientation/consciousness: patient oriented x3 Limitations: ambulation with walker HEENT Head: Yes normal to inspection, Yes normocephalic and Yes atraumatic Ears: hearing grossly normal bilaterally Eyes General: appearance normal, both eyes and all related structures Neck Neck: Yes normal visual inspection and Yes trachea midline Chest Chest palpation & inspection: normal inspection of the chest Resp Effort & Inspection: normal respiratory effort and able to speak in complete sentences Cardio Rate: regular rate GI Inspection: Yes normal to inspection General: Yes no CVA tenderness Back/Spine/Pelvis Back: no CVA tenderness Skin General skin exam: no rashes or lesions noted Neuro Other: Bilateral upper extremity tremors noted General: patient oriented x3 Extrem General: Yes normal to inspection Psych Appearance: grossly normal and well kempt Mental Status: mental status grossly normal Speech and movement: Normal speech and movement present and Clear speech present Affect: normal affect Attitude: cooperative Thought process: Normal thought process present Thought content: Normal thought content present Insight: Fair insight present (Psych) Judgement: Fair judgement present (Psych) Office Procedures Post Void Residual Post Residual Void Post Void Residual (PVR): 8 [id number] Void Residual by ultrasound Results AMB Urinalysis, Automated UA Leukoctes 15 Xiao/uL Last Edit by CURTIS Alcaraz on 04/17/25 14:04 UA Nitrite Last Edit by Mateo Ruby, [facility] on 04/17/25 14:04 UA Urobilinogen 0.2 mg/dL Last Edit by Mateo Ruby, [facility] on 04/17/25 14:0 4 UA Protein 15 mg/dL Last Edit by Mateo Ruby, [facility] on 04/17/25 14:04 UA pH 6.0 Last Edit by Mateo Ruby, [facility] on 04/17/25 14:04 UA Blood 0 Thai/uL Last Edit by Mateo Ruby, [facility] on 04/17/25 14:04 UA Specific [place] 1.015 Last Edit by Mateo Ruby, [facility] on 04/17/25 14: 04 UA Ketone Last Edit by Mateo Ruby, [facility] on 04/17/25 14:04 UA Bilirubin 1 mg/dL Last Edit by Mateo Ruby, [facility] on 04/17/25 14:04 UA Glucose 0 mg/dL Last Edit by Mateo Ruby, [facility] on 04/17/25 14:04 Assessment & Plan Assessment & Plan (1) Urinary incontinence: Code(s): R32 - Unspecified urinary incontinence Category: Medical Plan In office urinalysis results reviewed with the patient today; as noted above. PVR 8mL. We discussed importance of timed/scheduled voiding given decreased mobility. We also discussed healthy bathroom behaviors. We discussed potential causes of incontinence as well as further treatment options and risks and benefits of these treatment options. We discussed the importance of limiting/quitting nicotine dependence for overall health and well-being. Will obtain retroperitoneal ultrasound for further assessment evaluation. We discussed potential cystoscopy and or in office urodynamics for further assessment evaluation. Start Myrbetriq as discussed and prescribed. Follow-up in 1-3 months with imaging and PVR; or sooner with any issues, concerns, and or questions. Orders: Orders AMB Urinalysis Automated Today Z13.9 - Encounter for screening, unspecified AMB Post Void Residual by ultrasound Today R32 - Unspecified urinary incontinence US retroperitoneal comp Today R32 - Unspecified urinary incontinence Medications: New mirabegron ER (Myrbetriq) 25 mg PO DAILY 30 tabs 3RF 30 days N32.81 - Overactive bladder, R35.1 - Nocturia, R39.15 - Urgency of urination Patient Instructions: The patient had an opportunity to ask questions regarding the treatment plan. All questions were answered. Physical exam, labs, and imaging were discussed and reviewed in detail. As well as risks, benefits, and discussion of treatment choices. No major barriers to understanding were identified. The patient expressed understanding and agreement with the above treatment plan. The patient was made aware they should contact our office by phone for worsening of their current condition, the appearance of new symptoms, or with any questions or concerns. Compliance is encouraged with any medications and follow up testing that is ordered. It is a privilege to be allowed the opportunity to participate in? your urological care.? Again, if you have any questions or concerns If you have any questions or concerns please do not hesitate to contact me. The office is [phone]. This note is constructed using voice recognition software. While every effort has been made to ensure accuracy personal lines agent errors may have been included. Yours sincerely, BELEN Perla Coding Level of Care Code New Pt Level 4 (64725) Diagnoses Urinary incontinence R32 CPT Codes Post Residual Void - PVR CPT Code: 71699-Ychw Void Residual by ultrasound ([id number])
--- OUTSIDE RECORDS SUMMARY | 2025-04-17 13:54 | XMS_ITS | Data Portability ---
Author Organization [facility] Address [address] [facility] [address] [place] [address] Care Team Providers Care Miner Assistant Name Role Phone [facility] Primary Care Provider SILVESTRE CARY Referring [...] has been made and she needs a bulk driver on the day of the procedure. [...] needs to follow up in four weeks [email or web address] Not available 12/19/2018 10:58:16 08/04/2020 08/04/2020 Yuli [...] has been made and she needs a bulk driver on the day of the procedure. [...] has been made and she needs a bulk driver on the day of the procedure. [...] By Organization Details Last Modified Time 12/04/2018 [id number] She was advised to continue with activities as tolerated. [email or web address] Not available 12/04/2018 10:03:43 12/19/2018 [id number] She was advised to continue with activities as tolerated [email or web address] Not available 12/19/2018 10:40:55 08/04/2020 [id number] She was advised to continue with activities as tolerated. Telehealth visit: The patient was located at home for this telephone electronic visit and gave consent for this visit to be conducted via telehealth. 15 minutes was spent on this call and greater than 50% of the visit was spent on counseling and coordination of care. [email or web address] Not available 08/04/2020 09:57:58 09/10/2020 [id number] She was advised to continue with activities as tolerated [email or web address] Not available 09/10/2020 13:22:57 10/20/2020 [id number] She was advised to continue with activities [...] Recorded Time Degeneration of cervical intervertebral disc 33397006 Active Mora rascon MD [address] [place] [address] , [address], [facility] [place], [address], [place] [facility] 6 15:49:37 Muscle pain 68883937 Active Mora rascon MD [address] , [address], [place], 9, [place] [facility] 6 15:49:37 Cervical spondylosis without myelopathy 859906888 Active Mora rascon MD [address] , [address], [place], 9, [place] [facility] 6 15:49:37 Spinal stenosis of lumbar region 99578138 Active 2016 Mora rascon MD [address] , [address], [place], 9, [place] [facility] 7 09:23:41 Displacement of lumbar intervertebral disc without myelopathy 17511473 Active 2016 Mora rascon MD [address] , [address], [place], 9, [place] [facility] 7 09:23:42 Lumbosacral radiculitis 27239466 Active 2016 Mora rascon MD [address] , [address], [place], 9, [place] [facility] 7 09:23:46 Tietze's disease 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 Mora rascon MD [address] , [address], [place], 9, [place] [facility] 6 15:41:12 Shoulder joint pain 139264003 Active Mora rascon MD [address] , [address], [place], 9, [place] [facility] 6 15:41:12 Problem Notes None recorded. Procedures Surgical History Date Name Laterality Status Provider Name and Address Organization Details Recorded Time 09/10/20 20 Lumbar Epidural steroid injection under fluoroscopic guidance completed Mora Reilly MD [address] , [address], [place], [address], [place] [facility] 09/10/2020 13:23:36 12/20/19 19 Lumbar Epidural steroid injection under fluoroscopic guidance completed Mora Reilly MD [address] , [address], [place], [address], [place] [facility] 12/19/2018 10:41:30 02/29/20 18 Lumbar Epidural steroid injection under fluoroscopic guidance completed Mora Reilly MD [address] , [address], [place], [address], [place] [facility] 02/28/2018 15:56:59 09/21/20 17 Lumbar Epidural steroid injection under fluoroscopic guidance completed Mora Reilly MD [address] , [address], [place], [address], [place] [facility] 09/22/2017 08:35:14 07/27/20 17 Lumbar Epidural steroid injection under fluoroscopic guidance completed Mora Reilly MD [address] , [address], [place], [address], [place] [facility] 07/29/2017 08:55:44 07/30/20 16 Trigger Point Injections under ultrasound guidance completed Mora Reilly MD [address] , [address], [place], [address], [place] [facility] 08/14/2016 19:23:11 07/01/20 16 Costochondral steroid injection under ultrasound guidance. completed Mora Reilly MD [address] , [address], [place], [address], [place] [facility] 07/01/2016 09:57:07 06/17/20 16 Trigger Point Injections under ultrasound guidance completed Mora Reilly MD [address] , [address], [place], [address], [place] [facility] 06/19/2016 10:54:38 06/02/20 16 Trigger Point Injections under ultrasound guidance completed Mora Reilly MD [address] , [address], [place], [address], [place] [facility] 06/02/2016 15:50:51 08/13/20 15 Costochondral steroid injection under ultrasound guidance. completed Mora Reilly MD [address] , [address], [place], [address], [place] [facility] 08/14/2015 09:44:42 05/29/20 15 Costochondral steroid injection under ultrasound guidance. completed Mora Reilly MD [address] , [address], [place], [address], [place] [facility] 05/29/2015 12:01:41 02/26/20 15 Costochondral steroid injection under ultrasound guidance. completed Mora Reilly MD [address] , [address], [place], [address], [place] [facility] 02/25/2015 11:18:19 10/01/20 14 Costochondral steroid injection under ultrasound guidance. completed Mora Reilly MD [address] , [address], [place], [address], [place] [facility] 10/11/2014 15:19:47 09/03/20 14 Costochondral steroid injection under ultrasound guidance. completed Mora Reilly MD [address] , [address], [place], [address], [place] [facility] 09/03/2014 11:25:05 08/08/20 14 Costochondral steroid injection under ultrasound guidance. completed Mora Reilly MD [address] , [address], [place], [address], [place] [facility] 08/08/2014 15:58:12 02/20/20 13 Sacroiliac Joint Steroid Injections, using Fluoroscopy completed Mora Reilly MD [address] , [address], [place], [address], [place] [facility] 02/20/2013 09:59:03 11/20/19 13 Sacroiliac Joint Steroid Injections, using Fluoroscopy completed Mora Reilly MD [address] , [address], [place], [address], [place] [facility] 11/20/2012 15:55:16 10/18/19 13 Subacromial bursal injection completed Mora Reilly MD [address] , [address], [place], [address], [place] [facility] 10/19/2012 13:28:34 09/18/20 12 Sacroiliac Joint Steroid Injections, using Fluoroscopy completed Mora Reilly MD [address] , [address], [place], [address], [place] [facility] 09/19/2012 08:48:59 Other completed Denice Moses [place] [facility] 09/13/2012 11:07:04 Tubal Ligation completed Denice Moses [place] - [facility] [...] Name and Address Organization Details Recorded Time 55703 Keppra medicatio n Not available Not available Not available 05/29/2015 14182 7 RxNorm Sever e Menta tion issue s Denice Smithzier gisela, [place] [facility] 5 10:33:45 4281 morphine medicatio n Not available Not available Not available 09/13/2012 7052 RxNorm Swell ing Denice Smithzier null, [place] [facility] 2 10:58:56 4282 Dilantin medicatio n Not available Not available Not available 09/13/201214237 0 RxNorm Sever menta tion issue s Denice Smithzier gisela, [place] [facility] 2 10:58:56 [...] Not Available Not Available Not Available Afluria ( PF) 45 mcg (15 mcg x 3)/0.5 [...] in Arterial blood by Pulse oximetry Systolic And Diastolic Provider Name and Address Organization Details Last Updated DateTime 9 144.78 cm 70 /min 97 % 97 % 141/88 mm[Hg] Denice Yeboah [facility] 9 09:27:59 Date Recorded Body height Heart rate Oxygen saturation Oxygen saturation in Arterial blood by Pulse oximetry Systolic And Diastolic Provider Name and Address Organization Details Last Updated DateTime 9 144.78 cm 72 /min 98 % 98 % 124/85 mm[Hg] Denice Yeboah [facility] 9 08:39:14 Date Recorded Heart rate Oxygen saturation Oxygen saturation in Arterial blood by Pulse oximetry Systolic And Diastolic Provider Name and Address Organization Details Last Updated DateTime 09/10/2020 69 /min 96 % 96 % 154/96 mm[Hg] Connie Morin [place] [facility] 0 13:01:58 Social History Question Answer Notes LastModified by Organizat ion Details LastModified Time Tobacco Smoking Status Current Every Day Smoker Not Available [employer] 07/25/2020 03:16:10 Are You Blind Or Do You Have Difficulty Seeing? No [id number] Information not available 07/25/2020 Are You Deaf Or Do You Have Serious Difficulty Hearing? Yes [id number] Information not available 07/25/2020 Which Illicit Or Recreational Drugs Have You Used? No Sober X 4 1/2 Years [id number] Information not available 07/25/2020 Education 12 Some College Information not available 09/13/2012 What Is The Highest Grade Or Level Of School You Have Completed Or The Highest Degree You Have Received? [id number] Information not available 07/25/2020 How Many Days Of Moderate To Strenuous Exercise, Like A Brisk Walk, Did You Do In The Last 7 Days? 0 [id number] Information not available 07/25/2020 On Those Days That You Engage In Moderate To Strenuous Exercise, How Many Minutes, On Average, Do You Exercise? 2 [id number] Information not available 07/25/2020 How Hard Is It For You To Pay For The Very Basics Like Food, Housing, Medical Care, And Heating? [id number] Information not available 12/04/2018 Live Alone Or With Others? With Others House Mate Information not available 12/04/2018 Marital Status Informatio n not available 12/04/2018 What Was The Date Of Your Most Recent Tobacco Screening? 12/19/2018 [id number] Information not available 07/25/2020 Do You Have Difficulty Walking Or Climbing Stairs? Yes [id number] Information not available 07/25/2020 Sex: Unknown Functional Status Question Answer Note LastModified by Organizat ion Details LastModified Time What is your level of alcohol consumption? None [id number] Information not available 07/25/2020 Are you currently employed? No [id number] Information not available 07/25/2020 Do you have difficulty doing errands alone? 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 Yes Sometimes [id number] Information not available 07/25/2020 Mental Status Question Answer Note LastModified by Organizat ion Details LastModified Time Do you feel stressed (tense, restless, nervous, or anxious, or unable to sleep at night)? [id number] Information not available 07/25/2020 Do you have difficulty concentrating, remembering or making decisions? Yes [id number] Information no t available 07/25/2020 Family History [...] SNOMED-CT Code Diagnosis ICD10 Code Diagnosis Note [id number] Mora Reilly MD PAIN OFFICE [address] [facility] [place] [address] 09/13/2012 10:32:36 09/13/2012 15:53:15 [id number] Mora Reilly MD PAIN OFFICE [address] [facility] [place] [address] 09/18/2012 14:40:11 09/18/2012 15:42:39 [id number] Mora Reilly MD PAIN OFFICE [address] [facility] [place] [address] 10/18/2012 13:03:22 10/18/2012 16:07:14 73770 Mora Reilly MD PAIN OFFICE [address] [facility] [place] [address] 11/20/2012 12:53:54 11/20/2012 15:34:59 [id number] Mora Reilly MD PAIN OFFICE [address] [place] [address] 02/06/2013 10:05:10 02/06/2013 14:35:05 [id number] Mora Reilly MD PAIN OFFICE [address] [place] [address] 02/19/2013 13:29:03 02/19/2013 15:51:22 [id number] Mora Reilly MD PAIN OFFICE [address] [place] [address] 07/17/2014 08:10:56 07/30/2014 15:16:18 Tietze's disease 20828670 85455 Mora Reilly MD PAIN OFFICE [address] [place] [address] 08/08/2014 13:32:47 08/08/2014 15:59:34 Tietze's disease 45544596 [id number] Mora Reilly MD PAIN OFFICE [address] [place] [address] 09/03/2014 10:35:08 09/03/2014 11:26:47 Inflammation of sacroiliac joint 38317041 Tietze's disease 36694809 Shoulder joint pain 250589537 06827 Mora Reilly MD PAIN OFFICE [address] [place] [address] 10/01/2014 09:40:42 10/11/2014 15:21:30 Inflammation of sacroiliac joint 46794427 Tietze's disease 63711001 Shoulder joint pain 812452979 40150 Mora Reilly MD PAIN OFFICE [address] [place] [address] 12/04/2014 10:47:37 12/04/2014 13:15:12 Inflammation of sacroiliac joint 27491475 Tietze's disease 19592397 Shoulder joint pain 516875223 94849 Mora Reilly MD PAIN OFFICE [address] [place] [address] 02/25/2015 08:34:47 02/25/2015 13:20:22 Inflammation of sacroiliac joint 86267017 Tietze's disease 79734598 Shoulder joint pain 303511688 10775 Mora Reilly MD PAIN OFFICE [address] [facility] [place] [place] [address] 05/29/2015 10:04:54 05/29/2015 12:03:12 Inflammation of sacroiliac joint 20566366 Tietze's disease 50547200 Shoulder joint pain 880004819 84983 Mora Reilly MD PAIN OFFICE [address] [facility] [place] [place] [address] 08/13/2015 13:06:44 08/14/2015 09:45:21 Inflammation of sacroiliac joint 42608223 M46.1 Tietze's disease 9512470 9 M94.0 Shoulder joint pain 2679 34331 M25.512 [id number] Mora Reilly MD PAIN OFFICE [address] [facility] [place] [address] 12/30/2015 12:55:59 12/30/2015 13:53:52 Inflammation of sacroiliac joint 91906406 M46.1 48063 Mora Reilly MD PAIN OFFICE [address] [facility] [place] [address] 06/02/2016 11:20:00 06/02/2016 15:51:02 Cervical spondylosis without myelopathy 388258856 M47.812 Muscle pain 37376076 M79 .1 Degenerati on of cervical intervertebral disc 06495349 M50.30 38692 Mora Reilly MD PAIN OFFICE [address] [facility] [place] [address] 06/17/2016 08:53:49 06/19/2016 11:01:16 Cervical spondylosis without myelopathy 320777800 M47.812 Muscle pain 21732880 M79 .1 Degenerati on of cervical intervertebral disc 13510294 M50.30 14970 Mora Reilly MD PAIN OFFICE [address] [facility] [place] [address] 07/01/2016 09:26:06 07/01/2016 13:27:19 Inflammation of sacroiliac joint 64937878 M46.1 Tietze's disease 4701226 9 M94.0 Shoulder joint pain 2679 64479 M25.512 85838 Mora Reilly MD PAIN OFFICE [address] [facility] [place] [address] 07/30/2016 09:08:52 08/22/2016 11:46:05 Cervical spondylosis without myelopathy 254282490 M47.812 Muscle pain 74180769 M79 .1 Degenerati on of cervical intervertebral disc 21284491 M50.30 53961 Mora Reilly MD PAIN OFFICE [address] [facility] [place] [place] [address] 07/07/2017 08:16:05 07/07/2017 09:24:56 Lumbosacral radiculitis 92577131 M54.17 Spinal abram nosis of lumbar region 68028598 M48.06 Displaceme nt of lumbar intervertebral disc without myelopathy 89604502 M51.26 Inflammati on of sacroiliac joint 13709831 M46.1 58034 Mora Reilly MD PAIN OFFICE [address] [facility] [place] [address] 07/27/2017 09:52:38 07/29/2017 14:32:39 Lumbosacral radiculitis 49253100 M54.17 Spinal abram nosis of lumbar region 19786274 M48.062 Displaceme nt of lumbar intervertebral disc without myelopathy 99485452 M51.26 Inflammati on of sacroiliac joint 27658922 M46.1 83689 Mora Reilly MD SV PAIN OFFICE [address] [facility] [place] [address] 08/29/2017 09:17:14 08/29/2017 10:31:46 Lumbosacral radiculitis 49610640 M54.17 Spinal abram nosis of lumbar region 83974270 M48.062 Displaceme nt of lumbar intervertebral disc without myelopathy 48301131 M51.26 Inflammati on of sacroiliac joint 28904994 M46.1 05323 Mora Reilly MD [facility] PAIN OFFICE [address] [place] [address] 09/21/2017 11:43:42 09/22/2017 09:27:57 Lumbosacral radiculitis 20828390 M54.17 Spinal abram nosis of lumbar region 37172750 M48.062 Displaceme nt of lumbar intervertebral disc without myelopathy 93995854 M51.26 Inflammati on of sacroiliac joint 54631153 M46.1 42835 Mora Reilly MD PAIN OFFICE [address] [place] [address] 02/28/2018 13:30:09 02/28/2018 15:59:37 Lumbosacral radiculitis 79137141 M54.17 Spinal abram nosis of lumbar region 90030463 M48.062 Displaceme nt of lumbar intervertebral disc without myelopathy 32573499 M51.26 Inflammati on of sacroiliac joint 19869313 M46.1 16814 Mora Reilly MD PAIN OFFICE [address] [place] [address] 12/04/2018 09:17:20 12/04/2018 10:07:57 Lumbosacral radiculitis 16060140 M54.17 Spinal abram nosis of lumbar region 45983841 M48.062 Displaceme nt of lumbar intervertebral disc without myelopathy 25480953 M51.26 Inflammati on of sacroiliac joint 59467047 M46.1 91683 Mora Reilly MD PAIN OFFICE [address] [place] [address] 12/19/2018 08:26:46 12/19/2018 10:59:08 Lumbosacral radiculitis 66063140 M54.17 Spinal abram nosis of lumbar region 83748873 M48.062 Displaceme nt of lumbar intervertebral disc without myelopathy 61091330 M51.26 Inflammati on of sacroiliac joint 25320113 M46.1 [id number] Mora Reilly MD [facility] PAIN OFFICE [address] [facility] [place] [address] 08/04/2020 09:52:18 08/04/2020 13:06:36 Displacement of lumbar intervertebral disc without myelopathy 93832610 M51.26 Lumbosacra l radiculitis 26554105 M54.17 Spinal abram nosis of lumbar region 50015718 M48.062 Inflammati on of sacroiliac joint 44999418 M46.1 35700 Mora Reilly MD [facility] PAIN OFFICE [address] [facility] [place] [address] 09/10/2020 12:51:41 09/10/2020 13:26:05 Lumbosacral radiculitis 94362320 M54.17 Spinal abram nosis of lumbar region 22808698 M48.062 Displaceme nt of lumbar intervertebral disc without myelopathy 48397231 M51.26 Inflammati on of sacroiliac joint 30989007 M46.1 03417 Mora Reilly MD [facility] PAIN OFFICE [address] [facility] [place] [address] 10/20/2020 09:03:15 10/20/2020 09:11:00 Displacement of lumbar intervertebral disc without myelopathy 28993578 M51.26 Lumbosacra l radiculitis 20893243 M54.17 Spinal abram nosis of lumbar region 15783029 M48.062 Inflammati on of sacroiliac joint 19857034 M46.1 Health Concerns Section Related Observation LastModified by Organization Detai ls LastModified Time None Recorded Concern Status LastModified by Organization Details LastModified Time None Recorded Advance Directives Directive None Recorded Payers Insurance Date Sequence Insurance Name Policy Number Policy Marie Covered Member ID Marie Member ID Guarantor Name 10/20/2020 1 [place] [facility] Yuli Duke [id number] Yuli Duke 10/20/2020 1 [facility] [place] [id number] Yuli Duke [id number] Yuli Duke 10/20/2020 1 [place] B[place] [facility] Yuli Duke [id number] Yuli Duke Notes Date Note Type Note [...] or bowel incontinence. Mora Reilly MD [address] [facility] , [address] [address], [place], [address], [place] - [facility] 12/04/2018 13:52:29 12/19/2018 text/html She is here for a repeat lumbar epidural steroid injection under fluoroscopic guidance. Mora Reilly MD [address] [address], [place], [address], [place] - [facility] 12/21/2018 10:09:19 08/04/2020 text/html [...] or bowel incontinence. Mora Reilly MD [address] [facility] , [facility] [address], [place], [address], [place] - [facility] 08/05/2020 08:21:38 09/10/2020 text/html She is here for a lumbar epidural steroid injection under fluoroscopic guidance. Mora Reilly MD [address] [facility] , [facility] [address], [place], [address], [facility] - Pain Management 09/11/2020 16:25:02 [...] bladder or bowel incontinence. Mora Reilly MD [address] [place] [address] , [address], [place], [address], [facility] - Pain Management 10/20/2020 10:25:18 OBGyn Episode No OBEpisode recorded.
--- OUTSIDE RECORDS SUMMARY | 2025-04-17 13:54 | XMS_ITS | Clinical Summary ---
Author Organization [facility] it Address [address] [place] [address] Care Team Providers Care Ingot Buggy Operator Name Role Phone Jose Garcia MD [...] - 2023-2 5 season) 2024 Influenza Vaccine (#1) 2025 RSV Immunization Adult Patie nts (1 [...] 5 Years) and At-Risk Patients (6 to 49 Years) Aged Out No longer eligible b ased on patient's age to complete this topic RSV Immunization Patients Un ingrid 20 months Aged Out No longer eligible b ased on patient's age to complete this topic Varicella Vaccines Aged Out No longer eligible based on patient's age to complete this topic Advance Directives Documents on File Type Date Recorded Patient Climate Change Risk Assessor Expl anation Health Care Decision (hx) 09/18/2020 AD LAUREANO DIRECTIVE Health Care Decision (hx) 09/18/2020 AD LAUREANO DIRECTIVE Health Care Decision (hx) 09/18/2020 AD LAUREANO DIRECTIVE Care Teams Ingot Buggy Operator Relationship Specialty Start Date End Date Jose Garcia MD PCP - General Internal Medicine 02/26/22
--- OUTSIDE RECORDS SUMMARY | 2025-04-17 13:54 | XMS_ITS | Continuity of Care Document ---
Author Organization [facility] Address [address] [facility] [address] [place] [address] Phone [phone] Social History Type Date Description Comments Sex Female Sex Unknown Medical Devices Description No Information Available Encounters Description No Information Available Assessments Description No Information Available Plan of Treatment No Information Available Functional Status Description No Information Available Mental Status Description No Information Available Referrals Description No Information Available
== END 2025-04-17 14:06 | disposition home or self-care (01) ==
LOC: HO.HUSH 13:05
PROVIDERS: PCP Nurse Practitioner Family; Visit Provider Nurse Practitioner Family
DX: R32 Unspecified urinary incontinence (principal); Z13.9 Encounter for screening, unspecified
CPT/HCPCS: 99204

== ENCOUNTER → 2025-04-17 13:04 | Outpatient (BNVA) | payer MEDICARE, MEDICAID, SELFPAY | PROVIDERS: PCP Nurse Practitioner Family; Visit Provider Nurse Practitioner Family | DX: N39.46 Mixed incontinence (principal) | CPT/HCPCS: 51798; 81003; 99202 ==

== ENCOUNTER 2025-04-22 09:30 | Outpatient (AMB) | payer MEDICARE, MEDICAID, SELFPAY ==
--- NOTE | 2025-04-22 09:34 | A.OFFPC_ITS ---
Vital Signs 04/22/25 09:35 Height 4 ft 8 in Weight 112 lb BMI 25.1 BP 110/74 Blood Pressure Location Rt brachial Position Sitting Respiration 16 Pulse 78 Pulse Source Pulse Oximeter Temp 98.0 F Temp Source Oral Pulse Oximetry (%) 92 Oxygen Delivery Method Room Air Intake Visit Reasons: 4m follow up Toll Line Mechanic Required: No Allergies latex (LATEX) Allergy (Intermediate, Verified 04/22/25 10:47) RASH morphine (MORPHINE) Allergy (Intermediate, Verified 04/22/25 10:47) SWELLING alendronate sodium (From FOSAMAX) Allergy (Unknown, Verified 04/22/25 10:47) PER H+P levetiracetam (From KEPPRA) Adverse Reaction (Intermediate, Verified 04/22/25 10:47) DICKENS phenytoin (From DILANTIN) Adverse Reaction (Intermediate, Verified 04/22/25 10:47) CANT FUNCTION Medication List - Last Reconciled 04/22/25 by PARVIN Morin-BC albuterol sulfate 90 mcg/actuation (Ventolin HFA) 2 puffs inhalation Q6H PRN Arnuity Ellipta 100 mcg/actuation (fluticasone furoate) 1 inh inhalation DAILY NS aspirin 81 mg PO DAILY 90 days atorvastatin 80 mg PO DAILY 90 days calcium carb, citrate-vit D3 600 mg-12.5 mcg (500 unit) ER (Citracal-D3 Slow Release) 1 tab PO DAILY [disposable brief-pull ups As directed] divalproex ER 500 mg PO TID doxepin 10 mg PO BEDTIME lansoprazole 30 mg PO BID levothyroxine 100 mcg PO DAILY loperamide 2 mg PO Q6H PRN magnesium oxide 500 mg PO DAILY metoclopramide HCl 10 mg PO QID mirabegron ER (Myrbetriq) 25 mg PO DAILY 30 days primidone 50 mg PO TID sertraline 200 mg PO QAM zolpidem 10 mg PO BEDTIME Tobacco use date assessed: 04/22/25 Dental Screening Dental Screen Date: 12/10/24 HPI 4m follow up HPI Details Chief Complaint The patient presents with concerns related to COPD, CAD, hearing loss, and mobi lity difficulties. History of Present Illness The patient is a 59-year-old female presenting with management of chronic conditions including COPD and CAD, as well as addressing hearing loss and mobi lity issues. The patient has a history of Chronic Obstructive Pulmonary Disease (COPD) and continues to smoke, which exacerbates her respiratory symptoms. She experiences dyspnea on exertion, which is consistent with her COPD history. She has been referred for a low-dose CT scan for lung cancer screening, which she missed previously, and will be resubmitted for this referral. Additionally, a referral to pulmonary services is planned for further management of her COPD. Highly suggest a nebulizer and meds to go with it. The patient also has a history of Myocardial Infarction (VA) and Coronary Artery Disease (CAD). She is currently on atorvastatin and aspirin for management. She denies any current chest pain but reports shortness of breath with exertion. An echocardiogram and cardiology follow-up have been planned to monitor her cardiac status. not on a BB currently The patient reports hearing loss and has lost her hearing aids. A referral for a hearing test and to speech therapy has been made to address this issue. She also experiences tremors in her bilateral upper extremities and weakness in her bilateral lower extremities, which impacts her mobility. The patient uses a rolling walker for ambulation and reports difficulty navigating her living environment, particularly accessing the dining room. A referral to [facility] for evaluation for a possible electronic wheelchair is planned to assist with her mobility challenges. Social History - Smoking: The patient continues to smok e, which contributes to her COPD. - Mobility: The patient uses a rolling w alker and reports difficulty with mobility, particularly in accessing the dining room. Health Maintenance - Referral for low-dose CT scan for lung cancer screening due to smoking history. - Referral for echocardiogram and cardio logy follow-up for cardiac monitoring. - Referral for hearing test and speech t herapy due to hearing loss. - Referral to [facility] for evaluat ion for electronic wheelchair to assist with mobility. -referral to pulm. Review of Systems - Respiratory: Reports dyspnea on exerti on. Denies cough or wheezing. - Cardiovascular: Denies chest pain. Rep orts shortness of breath with exertion. - Neurological: Reports tremors in bilat eral upper extremities. - Musculoskeletal: Reports weakness in b ilateral lower extremities. - Auditory: Reports hearing loss and los s of hearing aids. Physical Exam General: Cooperative, healthy appearing, comfortable, no acute distress and well developed Orientation: Patient oriented x3 Limitations: No limitations Head: Normal to inspection Ears: Hearing aids lost, needs hearing tests Nose: Normal external nose present Face and sinus: Normal facial exam Eyes: Appearance normal, both eyes and all related structures Neck: Normal visual inspection and Yes full ROM Respiratory: Diminished breath sounds bilaterally, able to speak in complete sentences Cardiovascular: Regular rate and rhythm. Normal S1 and S2 GI: Normal to inspection. Soft to palpation and nontender Skin: No rashes or lesions noted Neuro: Patient oriented x3 Extremities: Tremors noted in bilateral upper extremities, weakness noted in bilateral lower extremities, using a rolling walker Results Plan The patient will be referred for a low-dose CT scan for lung cancer screening due to her smoking history and COPD. A referral to pulmonary services is also planned to manage her COPD symptoms effectively. For her cardiac conditions, including a history of VA and CAD, an echocardiogram will be conducted, and she will be referred to cardiology for further evaluation and management. She is currently on atorvastatin and aspirin for her cardiac conditions. To address her hearing loss, a referral for a hearing test and speech therapy has been made. Additionally, due to her mobility challenges, a referral to [facility] for evaluation for a possible electronic wheelchair is planned. This will assist her in navigating her living environment more effectively. The patient is advised to continue using her rolling walker for ambulation. Discussion Notes I discussed with the patient the importance of attending her low-dose CT scan for lung cancer screening and the need for pulmonary follow-up due to her COPD. We also talked about the necessity of an echocardiogram and cardiology follow-up to monitor her cardiac health. I explained the referrals for a hearing test and speech therapy to address her hearing loss. Additionally, we discussed the potential benefits of an electronic wheelchair to improve her mobility and the referral to [facility] for evaluation. I emphasized the importance of continuing her current medications and using her rolling walker for support. Patient Instructions - Attend the low-dose CT scan appointmen t for lung cancer screening. - Follow up with pulmonary services for COPD management. - Complete the echocardiogram and cardio logy follow-up for heart health monitoring. - Schedule and attend the hearing test a nd speech therapy appointments. - Use the rolling walker for mobility tom pport. - Consider the evaluation for an electro norah wheelchair to assist with mobility. [facility] Medical History (Updated 04/22/25 @ 10:30 by Srikanth Palomares FLUTE TEACHER-BC) Weakness Urinary incontinence Epigastric pain Physical deconditioning Hypomagnesemia Abdominal pain Pleuritic pain Bilateral hip pain Bilateral knee pain Esophageal stricture Screening for cervical cancer Screening for colon cancer Pain in right leg Swelling of right lower extremity Breast cancer screening, high risk patient Edema Hypoglycemia Tremor Cerebral microvascular disease Hx of hiatal hernia Tubular adenoma of colon On beta matty at home Nicotine dependence, unspecified, uncomplicated Lumbosacral pain Lumbar stenosis Lumbar radiculitis Multiple pulmonary nodules COPD (chronic obstructive pulmonary disease) Osteoporosis Hypothyroid Depression Hyperlipidemia Hypertension Myocardial infarct CAD (coronary artery disease) Intracranial arachnoid cyst Cerebral atrophy Seizure Surgical History Hx of local excision of skin lesion History of foot surgery (~2013) History of tubal ligation History of heart artery stent (~2004) History of colonoscopy (~2018) History of appendectomy S/P dilatation of esophageal stricture (~2020) History of [place] fundoplication (~2019) History of esophagogastroduodenoscopy (EGD) (~2020) Family History Father Blood clots in brain Diabetes Polio Mother Breast cancer Hiatal hernia Sister Cancer Brother Myocardial infarction Family/Other Throat cancer Stomach cancer Paternal Grandmother Cancer Social History Household Members: Other Housing: Apartment Alcohol intake: current Alcohol intake frequency: does not drink Patient Tobacco Use Status: Current everyday Tobacco user Tobacco use type: Cigarette Cigarette Packs Per Day: 0.5 Cigarettes Per Day: 10.0 Years Smoked: 42 e-Cigarette/Vaping Use: Never Used Second Hand Smoke Exposure: No Current occupational status: disabled Cognitive needs: No Hearing needs: No Vision needs: No Questionnaire PHQ-9 Over the last 2 weeks, how often have you been bothered by any of the following problems? 1. Little interest or pleasure in doing things: not at all 2. Feeling down, depressed, or hopeless: not at all 3. Trouble falling or staying asleep, or sleeping too much: more than half the days 4. Feeling tired or having little energy: more than half the days 5. Poor appetite or overeating: not at all 6. Feeling bad about yourself - or that you are a failure or have let yourself or your family down: not at all 7. Trouble concentrating on things, such as reading the newspaper or watching television: several days 8. Moving or speaking so slowly that other people could have noticed. Or the opposite - being so fidgety or restless that you have been moving around a lot more than usual: not at all 9. Thoughts that you would be better off or of hurting yourself in some way: not at all Total score: 5 Source: Developed by Drs. Alex Cerna, Clara Worthy, Kaushik Kilgore and colleagues, with an educational misti from [employer]. Thrive Questionnaire Date Thrive assessed: 12/10/24 I am a: Patient What is your living situation today?: I have a steady place to live Within the past 12 months, did the food you bought not last and you didn't have the money to get more?: Sometimes True Within the past 12 months, did you worry whether your food would run out before you got money to buy more?: Sometimes True Do you have trouble paying for medicines?: Yes Do you have trouble getting transportation to medical appointments?: Yes Do you have trouble paying your heating and electricity bill?: No Do you have trouble taking care of your child, family member or friend?: No Do you have trouble with day-to-day activities such as bathing, preparing meals, shopping, managing finances, etc.?: Yes Are you currently unemployed and looking for a job?: No Are you interested in more education?: No Currently or been in a relationship where the following occur: I choose not to answer THRIVE Score: 3 AUDIT C Alcohol Use Questionnaire (AUDIT-C) 3. How often do you have six or more drinks on one occasion?: Never Total Score: 0 DOMINGO-7 AMB Questionnaire DOMINGO-7 Date DOMINGO - 7 assessed: 12/10/24 Source: Developed by Drs. Alex Cerna, Clara Worthy, Kaushik Kilgore and colleagues, with an educational misti from [employer]. Physical exam (Primary Care) Vital Signs: Last Vital Signs Temp 98.0 F 04/22/25 09:35 Pulse 78 04/22/25 09:35 Resp 16 04/22/25 09:35 BP 110/74 04/22/25 09:35 Pulse Ox 92 04/22/25 09:35 Oxygen Delivery Method Room Air 04/22/25 09:35 BMI result Body Mass Index 25.1 Tobacco/Smoking Status: Tobacco use Status Tobacco use date assessed 04/22/25 04/22/25 10:00 Patient Tobacco Use Status Current everyday Tobacco 04/22/25 09:36 Tobacco use type Cigarette 04/22/25 09:36 e-Cigarette/Vaping Use Never Used 04/22/25 09:36 PHQ-9: PHQ-9 Score PHQ-9: Total score 5 04/22/25 10:00 Thrive Assessment: Date of Thrive Assessment Date Thrive assessed 12/10/24 04/22/25 09:36 Currently or been in a relationship where the following occur: I choose not to answer Coding Level of Care Code Est Pt Level 4 (10736) Diagnoses Weakness R53.1 COPD (chronic obstructive pulmonary disease) J44.9 Hard of hearing H91.90 Cardiomegaly I51.7 Myocardial infarct I21.9 Dyslipidemia E78.5 Assessment & Plan Assessment & Plan (1) Weakness: Code(s): R53.1 - Weakness Category: Medical (2) COPD (chronic obstructive pulmonary disease): Code(s): J44.9 - Chronic obstructive pulmonary disease, unspecified Category: Medical (3) Hard of hearing: Code(s): H91.90 - Unspecified hearing loss, unspecified ear Category: Medical (4) Cardiomegaly: Code(s): I51.7 - Cardiomegaly Category: Medical (5) Myocardial infarct: Comment: (2004 [id number] prn only w/hot cell technician) Code(s): I21.9 - Acute myocardial infarction, unspecified Category: Medical (6) Dyslipidemia: Code(s): E78.5 - Hyperlipidemia, unspecified Category: Medical Plan . Orders: Orders TSH reflex Free T4 Today E78.5 - Hyperlipidemia, unspecified Complete Blood Count Auto Diff Today E78.5 - Hyperlipidemia, unspecified Comprehensive [place]. Panel Fast Today E78.5 - Hyperlipidemia, unspecified UA CC w/rflx Micro + Cult Today E78.5 - Hyperlipidemia, unspecified Lipid Panel Today E78.5 - Hyperlipidemia, unspecified CA echo transthoracic complete Today I10 - Essential (primary) hypertension, I21.9 - Acute myocardial infarction, unspecified, I51.7 - Cardiomegaly Referrals Physical Medicine and Rehabilitation Referral R53.1 - Weakness Pulmonology Referral J44.9 - Chronic obstructive pulmonary disease, unspecified Cardiology Referral I21.9 - Acute myocardial infarction, unspecified, I51.7 - Cardiomegaly Speech and Hearing Referral H91.90 - Unspecified hearing loss, unspecified ear
[2025-04-22 09:35] VITALS: BP 110/74; PULSE 78; RESP 16; TEMP 36.7; O2SAT 92; BMI 25.1
--- OUTSIDE RECORDS SUMMARY | 2025-04-22 09:57 | XMS_ITS | Data Portability ---
Author Organization [facility] [address] [facility] [address] [place] [address] Care Team Providers Care Photo Lab Manager Name Role Phone [facility] Primary Care Provider SILVESTRE CARY Referring Provider [phone] ANA GODINEZ Primary Care Provider Assessment Encounter [...] has been made and she needs a delivery route driver on the day of the [...] has been made and she needs a delivery route driver on the day of the [...] has been made and she needs a delivery route driver on the day of the [...] By Organization Details Last Modified Time 12/04/2018 15615 She was advised to continue with activities as tolerated. [email or web address] Not available 12/04/2018 10:03:43 12/19/2018 08234 She was advised to continue with activities as tolerated [email or web address] Not available 12/19/2018 10:40:55 08/04/2020 18852 She was advised to continue with activities as tolerated. Telehealth visit: The patient was located at home for this telephone electronic visit and gave consent for this visit to be conducted via telehealth. 15 minutes was spent on this call and greater than 50% of the visit was spent on counseling and coordination of care. [email or web address] Not available 08/04/2020 09:57:58 09/10/2020 00601 She was advised to continue with activities as tolerated [email or web address] Not available 09/10/2020 13:22:57 10/20/2020 08279 She was advised to continue with activities [...] Recorded Time Degeneration of cervical intervertebral disc 06683737 Active Mora rascon MD [address] [place] [address] , [address], [facility] [place], [address], [place] [facility] 6 15:49:37 Muscle pain 90903493 Active Mora rascon MD [address] , [address], [place], [place], [place] [facility] 6 15:49:37 Cervical spondylosis without myelopathy 664219228 Active Mora rascon MD [address] , [address], [place], [place], [place] [facility] 6 15:49:37 Spinal stenosis of lumbar region 20454449 Active 2016 Mora rascon MD [address] , [address], [place], 9, [place] [facility] 7 09:23:41 Displacement of lumbar intervertebral disc without myelopathy 16810065 Active 2016 Mora rascon MD [address] , [address], [place], [place], [place] [facility] 7 09:23:42 Lumbosacral radiculitis 08876591 Active 2016 Mora rascon MD [address] , [address], [place], [place], [place] [facility] 7 09:23:46 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 Mora rascon MD [address] , [address], [place], [place], [place] [facility] 6 15:41:12 Shoulder joint pain 997589883 Active Mora rascon MD [address] , [address], [place], [place], [place] [facility] 6 15:41:12 Problem Notes None recorded. Procedures Surgical History Date Name Laterality Status Provider Name and Address Organization Details Recorded Time 09/10/20 20 Lumbar Epidural steroid injection under fluoroscopic guidance completed Mora Reilly MD [address] [facility] , [address], [place], [address], [place] [facility] 09/10/2020 13:23:36 12/20/19 19 Lumbar Epidural steroid injection under fluoroscopic guidance completed Mora Reilly MD [address] [facility] , [address], [place], [address], [place] [facility] 12/19/2018 10:41:30 02/29/20 18 Lumbar Epidural steroid injection under fluoroscopic guidance completed Mora Reilly MD [address] [facility] , [address], [place], [address], [place] [facility] 02/28/2018 15:56:59 09/21/20 17 Lumbar Epidural steroid injection under fluoroscopic guidance completed Mora Reilly MD [address] [facility] , [address], [place], [address], [place] [facility] 09/22/2017 08:35:14 07/27/20 17 Lumbar Epidural steroid injection under fluoroscopic guidance completed Mora Reilly MD [address] [facility] , [address], [place], [address], [place] [facility] 07/29/2017 08:55:44 07/30/20 16 Trigger Point Injections under ultrasound guidance completed Mora Reilly MD [address] [facility] , [address], [place], [address], [place] [facility] 08/14/2016 19:23:11 07/01/20 16 Costochondral steroid injection under ultrasound guidance. completed Mora Reilly MD [address] [facility] , [address], [place], [address], [place] [facility] 07/01/2016 09:57:07 06/17/20 16 Trigger Point Injections under ultrasound guidance completed Mora Reilly MD [address] [facility] , [address], [place], [address], [place] [facility] 06/19/2016 10:54:38 06/02/20 16 Trigger Point Injections under ultrasound guidance completed Mora Reilly MD [address] , [address], [place], [address], [place] [facility] 06/02/2016 15:50:51 08/13/20 15 Costochondral steroid injection under ultrasound guidance. completed Mora Reilly MD [address] , [address], [place], [address], [place] [facility] 08/14/2015 09:44:42 05/29/20 15 Costochondral steroid injection under ultrasound guidance. completed Mora Reilly MD [address] , [address], [place], [address], [place] [facility] 05/29/2015 12:01:41 02/26/20 15 Costochondral steroid injection under ultrasound guidance. completed Mora Reilly MD [address] , [address], [place], [address], [place] [facility] 02/25/2015 11:18:19 10/01/20 14 Costochondral steroid injection under ultrasound guidance. completed Mora Reilly MD [address] , [address], [place], [address], [place] [facility] 10/11/2014 15:19:47 09/03/20 14 Costochondral steroid injection under ultrasound guidance. completed Mora Reilly MD [address] , [address], [place], [address], [place] [facility] 09/03/2014 11:25:05 08/08/20 14 Costochondral steroid injection under ultrasound guidance. completed Mora Reilly MD [address] , [address], [place], [address], [place] [facility] 08/08/2014 15:58:12 02/20/20 13 Sacroiliac Joint Steroid Injections, using Fluoroscopy completed Mora Reilly MD [address] , [address], [place], [address], [place] [facility] 02/20/2013 09:59:03 11/20/19 13 Sacroiliac Joint Steroid Injections, using Fluoroscopy completed Mora Reilly MD [address] , [address], [place], [address], [place] [facility] 11/20/2012 15:55:16 10/18/19 13 Subacromial bursal injection completed Mora Reilly MD [address] , [address], [place], [address], [place] [facility] 10/19/2012 13:28:34 09/18/20 12 Sacroiliac Joint Steroid Injections, using Fluoroscopy completed Mora Reilly MD [address] , [address], [place], [address], [place] [facility] 09/19/2012 [...] Name and Address Organization Details Recorded Time 15414 Keppra medicatio n Not available Not available Not available 05/29/2015 04316 7 RxNorm Sever e Menta tion issue s Denice Smithzier gisela, [place] [facility] 5 10:33:45 4281 morphine medicatio n Not available Not available Not available 09/13/2012 7052 RxNorm Swell ing Denice Smithzier null, [place] [facility] 2 10:58:56 4282 Dilantin medicatio n Not available Not available Not available 09/13/201204465 0 RxNorm Sever menta tion issue s [...] /min 97 % 97 % 141/88 mm[Hg] Deince Yeboah [facility] 9 09:27:59 Date [...] Or Do You Have Difficulty Seeing? No [id number] Information not available 07/25/2020 Are You Deaf Or Do You Have Serious Difficulty Hearing? Yes [id number] Information not available 07/25/2020 Which Illicit Or Recreational Drugs Have You Used? No Sober X 4 1/2 Years [id number] Information not available 07/25/2020 Education 12 Some College Information not available 09/13/2012 What Is The Highest Grade Or Level Of School You Have Completed Or The Highest Degree You Have Received? [id number] [id number] Information not available 07/25/2020 How Many Days Of Moderate To Strenuous Exercise, Like A Brisk Walk, Did You Do In The Last 7 Days? 0 [id number] Information not available 07/25/2020 On Those Days That You Engage In Moderate To Strenuous Exercise, How Many Minutes, On Average, Do You Exercise? 2 [id number] Information not available 07/25/2020 How Hard Is It For You To Pay For The Very Basics Like Food, Housing, Medical Care, And Heating? [id number] Information not available 12/04/2018 Live Alone Or With Others? With Others House Mate Information not available 12/04/2018 Marital Status Informatio n not available 12/04/2018 What Was The Date Of Your Most Recent Tobacco Screening? 12/19/2018 [id number] Information not available 07/25/2020 Do You Have Difficulty Walking Or Climbing Stairs? Yes [id number] Information not available 07/25/2020 Sex: Unknown Functional Status Question Answer Note LastModified by Organizat ion Details LastModified Time What is your level of alcohol consumption? None [id number] Information not available 07/25/2020 Are you currently employed? No [id number] Information not available 07/25/2020 Do you have difficulty doing errands alone? 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 Yes Sometimes [id number] Information not available 07/25/2020 Mental Status Question Answer Note LastModified by Organizat ion Details LastModified Time Do you feel stressed (tense, restless, nervous, or anxious, or unable to sleep at night)? [id number] Information not available 07/25/2020 Do you have difficulty concentrating, remembering or making decisions? Yes [id number] Information no t available 07/25/2020 Family History Nothing Reported. Medical History Condition Response Diabetes Y Coronary Artery Disease Y Migrane Y Arthritis Y Seizures/Epilepsy Y High Cholesterol Y GERD/Reflux Y Hypertension Y COPD Y Gynecological HistoryNo gynecological history recorded. Obstetrics History GPAL:G 0 P 0 0 0 0 Past Encounters Encounter ID Performer Location Encounter Start Date Encounter Closed Date Diagnosis/Indication Diagnosis SNOMED-CT Code Diagnosis ICD10 Code Diagnosis Note [id number] Mora Reilly MD PAIN OFFICE [address] [facility] [place] [address] 09/13/2012 10:32:36 09/13/2012 15:53:15 [id number] Mora Reilly MD PAIN OFFICE [address] [facility] [place] [address] 09/18/2012 14:40:11 09/18/2012 15:42:39 [id number] Mora Reilly MD PAIN OFFICE [address] [facility] [place] [address] 10/18/2012 13:03:22 10/18/2012 16:07:14 [id number] Mora Reilly MD PAIN OFFICE [address] [facility] [place] [address] 11/20/2012 12:53:54 11/20/2012 15:34:59 [id number] Mora Reilly MD PAIN OFFICE [address] [place] [address] 02/06/2013 10:05:10 02/06/2013 14:35:05 [id number] Mora Reilly MD PAIN OFFICE [address] [place] [address] 02/19/2013 13:29:03 02/19/2013 15:51:22 [id number] Mora Reilly MD PAIN OFFICE [address] [place] [address] 07/17/2014 08:10:56 07/30/2014 15:16:18 Tietze's disease 14181064 [id number] Mora Reilly MD PAIN OFFICE [address] [place] [address] 08/08/2014 13:32:47 08/08/2014 15:59:34 Tietze's disease 95886257 [id number] Mora Reilly MD PAIN OFFICE [address] [place] [address] 09/03/2014 10:35:08 09/03/2014 11:26:47 Inflammation of sacroiliac joint 18190246 Tietze's disease 17254150 Shoulder joint pain 641418140 [id number] Mora Reilly MD PAIN OFFICE [address] [place] [address] 10/01/2014 09:40:42 10/11/2014 15:21:30 Inflammation of sacroiliac joint 02205738 Tietze's disease 44701689 Shoulder joint pain 241969833 [id number] Mora Reilly MD PAIN OFFICE [address] [place] [address] 12/04/2014 10:47:37 12/04/2014 13:15:12 Inflammation of sacroiliac joint 98844285 Tietze's disease 21049990 Shoulder joint pain 981880752 [id number] Mora Reilly MD PAIN OFFICE [address] [place] [place] [address] 02/25/2015 08:34:47 02/25/2015 13:20:22 Inflammation of sacroiliac joint 79296457 Tietze's disease 74853407 Shoulder joint pain 139225507 [id number] Mora Reilly MD PAIN OFFICE [address] [facility] [place] [address] 05/29/2015 10:04:54 05/29/2015 12:03:12 Inflammation of sacroiliac joint 37083875 Tietze's disease 29306166 Shoulder joint pain 107616109 [id number] Mora Reilly MD PAIN OFFICE [address] [facility] [place] [address] 08/13/2015 13:06:44 08/14/2015 09:45:21 Inflammation of sacroiliac joint 64804363 M46.1 Tietze's disease 0663658 9 M94.0 Shoulder joint pain 2679 02163 M25.512 [id number] Mora Reilly MD PAIN OFFICE [address] [facility] [place] [address] 12/30/2015 12:55:59 12/30/2015 13:53:52 Inflammation of sacroiliac joint 59100266 M46.1 [id number] Mora Reilly MD PAIN OFFICE [address] [facility] [place] [address] 06/02/2016 11:20:00 06/02/2016 15:51:02 Cervical spondylosis without myelopathy 736563542 M47.812 Muscle pain 22433740 M79 .1 Degenerati on of cervical intervertebral disc 35908753 M50.30 [id number] Mora Reilly MD PAIN OFFICE [address] [facility] [place] [address] 06/17/2016 08:53:49 06/19/2016 11:01:16 Cervical spondylosis without myelopathy 946021498 M47.812 Muscle pain 33071920 M79 .1 Degenerati on of cervical intervertebral disc 56797389 M50.30 [id number] Mora Reilly MD PAIN OFFICE [address] [facility] [place] [address] 07/01/2016 09:26:06 07/01/2016 13:27:19 Inflammation of sacroiliac joint 28315642 M46.1 Tietze's disease 2632689 9 M94.0 Shoulder joint pain 2679 39891 M25.512 [id number] Mora Reilly MD PAIN OFFICE [address] [facility] [place] [address] 07/30/2016 09:08:52 08/22/2016 11:46:05 Cervical spondylosis without myelopathy 935766213 M47.812 Muscle pain 99669806 M79 .1 Degenerati on of cervical intervertebral disc 94503403 M50.30 [id number] Mora Reilly MD PAIN OFFICE [address] [facility] [place] [address] 07/07/2017 08:16:05 07/07/2017 09:24:56 Lumbosacral radiculitis 77709114 M54.17 Spinal abram nosis of lumbar region 62274577 M48.06 Displaceme nt of lumbar intervertebral disc without myelopathy 10293550 M51.26 Inflammati on of sacroiliac joint 19111127 M46.1 [id number] Mora Reilly MD PAIN OFFICE [address] [facility] [place] [address] 07/27/2017 09:52:38 07/29/2017 14:32:39 Lumbosacral radiculitis 75358143 M54.17 Spinal abram nosis of lumbar region 81918947 M48.062 Displaceme nt of lumbar intervertebral disc without myelopathy 21384999 M51.26 Inflammati on of sacroiliac joint 50897288 M46.1 [id number] Mora Reilly MD [facility] PAIN OFFICE [address] [facility] [place] [address] 08/29/2017 09:17:14 08/29/2017 10:31:46 Lumbosacral radiculitis 92551840 M54.17 Spinal abram nosis of lumbar region 14743540 M48.062 Displaceme nt of lumbar intervertebral disc without myelopathy 90269275 M51.26 Inflammati on of sacroiliac joint 65630925 M46.1 [id number] Mora Reilly MD [facility] PAIN OFFICE [address] [place] [address] 09/21/2017 11:43:42 09/22/2017 09:27:57 Lumbosacral radiculitis 95820063 M54.17 Spinal abram nosis of lumbar region 51236118 M48.062 Displaceme nt of lumbar intervertebral disc without myelopathy 75440590 M51.26 Inflammati on of sacroiliac joint 32933067 M46.1 [id number] Mora Reilly MD PAIN OFFICE [address] [place] [address] 02/28/2018 13:30:09 02/28/2018 15:59:37 Lumbosacral radiculitis 92904962 M54.17 Spinal abram nosis of lumbar region 44834824 M48.062 Displaceme nt of lumbar intervertebral disc without myelopathy 65334529 M51.26 Inflammati on of sacroiliac joint 24255276 M46.1 [id number] Mora Reilly MD PAIN OFFICE [address] [place] [address] 12/04/2018 09:17:20 12/04/2018 10:07:57 Lumbosacral radiculitis 15744316 M54.17 Spinal abram nosis of lumbar region 59323367 M48.062 Displaceme nt of lumbar intervertebral disc without myelopathy 31615267 M51.26 Inflammati on of sacroiliac joint 84667483 M46.1 [id number] Mora Reilly MD PAIN OFFICE [address] [place] [address] 12/19/2018 08:26:46 12/19/2018 10:59:08 Lumbosacral radiculitis 71030587 M54.17 Spinal abram nosis of lumbar region 66566518 M48.062 Displaceme nt of lumbar intervertebral disc without myelopathy 86180475 M51.26 Inflammati on of sacroiliac joint 78102811 M46.1 [id number] Mora Reilly MD [facility] PAIN OFFICE [address] [facility] [place] [address] 08/04/2020 09:52:18 08/04/2020 13:06:36 Displacement of lumbar intervertebral disc without myelopathy 88573194 M51.26 Lumbosacra l radiculitis 18594473 M54.17 Spinal abram nosis of lumbar region 71067238 M48.062 Inflammati on of sacroiliac joint 56369408 M46.1 [id number] Mora Reilly MD [facility] PA[facility] [address] [facility] [place] [address] 09/10/2020 12:51:41 09/10/2020 13:26:05 Lumbosacral radiculitis 52901255 M54.17 Spinal abram nosis of lumbar region 62592511 M48.062 Displaceme nt of lumbar intervertebral disc without myelopathy 24578865 M51.26 Inflammati on of sacroiliac joint 68541423 M46.1 [id number] Mora Reilly MD [facility] PAIN OFFICE [address] [facility] [place] [address] 10/20/2020 09:03:15 10/20/2020 09:11:00 Displacement of lumbar intervertebral disc without myelopathy 35642003 M51.26 Lumbosacra l radiculitis 26518722 M54.17 Spinal abram nosis of lumbar region 80373636 M48.062 Inflammati on of sacroiliac joint 28414042 M46.1 Health Concerns Section Related Observation LastModified by Organization Detai ls LastModified Time None Recorded Concern Status LastModified by Organization Details LastModified Time None Recorded Advance Directives Directive None Recorded Payers Insurance Date Sequence Insurance Name Policy Number Policy Marie Covered Member ID Marie Member ID Guarantor Name 10/20/2020 1 [place] [facility] Yuli Duke [id number] Yuli Duke 10/20/2020 1 [facility] [id number] Yuli Duke [id number] Yuli Duke 10/20/2020 1 MEDICARE B-[place] [facility] Yuli Duke [id number] Yuli Duke Notes Date Note Type Note [...] or bowel incontinence. Mora Reilly MD [address] [facility] [address] [address], [place], [address], [place] - [facility] 12/04/2018 13:52:29 12/19/2018 text/html She is here for a repeat lumbar epidural steroid injection under fluoroscopic guidance. Mora Reilly MD [address] [address], [place], [address], [place] [facility] 12/21/2018 10:09:19 08/04/2020 [...] or bowel incontinence. Mora Reilly MD [address] [facility] , [facility] [address], [place], [address], [place] - [facility] 08/05/2020 08:21:38 09/10/2020 text/html She is here for a lumbar epidural steroid injection under fluoroscopic guidance. Mora Reilly MD [address] [facility] , [facility] [address], [place], [address], [facility] - Pain Management 09/11/2020 16:25:02 10/20/2020 [...] bladder or bowel incontinence. Mora Reilly MD [address] [place] [address] , [address], [place], [address], [facility] - Pain Management 10/20/2020 10:25:18 OBGyn Episode No OBEpisode recorded.
--- OUTSIDE RECORDS SUMMARY | 2025-04-22 09:57 | XMS_ITS | Clinical Summary ---
Author Organization [facility] it Address [address] [place] [address] Care Team Providers Care Child Support Officer Name Role Phone Jose Garcia MD Primary [...] Documents on File Type Date Recorded Patient Adjustment Clerk Expl anation Health Care Decision (hx) 09/18/2020 AD LAUREANO DIRECTIVE Health Care Decision (hx) 09/18/2020 AD LAUREANO DIRECTIVE Health Care Decision (hx) 09/18/2020 AD LAUREANO DIRECTIVE Care Teams Child Support Officer Relationship Specialty Start Date End Date Jose Garcia MD PCP - General Internal Medicine 02/26/22
--- OUTSIDE RECORDS SUMMARY | 2025-04-22 09:58 | XMS_ITS | Continuity of Care Document ---
Author Organization [facility] Address [address] [facility] [address] [place] [address] Phone [phone] Social History Type Date Description Comments Sex Female Sex Unknown Medical Devices Description No Information Available Encounters Description No Information Available Assessments Description No Information Available Plan of Treatment No Information Available Functional Status Description No Information Available Mental Status Description No Information Available Referrals Description No Information Available
== END 2025-04-22 10:53 | disposition home or self-care (01) ==
LOC: HO.HMCC 09:31
PROVIDERS: PCP Nurse Practitioner Family; Visit Provider Nurse Practitioner Family
DX: R53.1 Weakness (principal); J44.9 Chronic obstructive pulmonary disease, unspecified; I25.2 Old myocardial infarction; H91.93 Unspecified hearing loss, bilateral; I51.7 Cardiomegaly; E78.5 Hyperlipidemia, unspecified

== ENCOUNTER → 2025-04-22 09:30 | Outpatient (BNVA) | payer MEDICARE, MEDICAID, SELFPAY | PROVIDERS: PCP Nurse Practitioner Family; Visit Provider Nurse Practitioner Family | DX: R53.1 Weakness (principal); J44.9 Chronic obstructive pulmonary disease, unspecified; H91.90 Unspecified hearing loss, unspecified ear; I51.7 Cardiomegaly; I21.9 Acute myocardial infarction, unspecified; E78.5 Hyperlipidemia, unspecified | CPT/HCPCS: 99212 ==

== ENCOUNTER 2025-04-25 11:15 | Outpatient (AMB) | payer MEDICARE, MEDICAID, SELFPAY ==
--- NOTE | 2025-04-25 11:25 | A.OFFVIS_ITS ---
Intake Visit Reasons: 3m/ Sz Allergies latex (LATEX) Allergy (Intermediate, Verified 04/22/25 10:47) RASH morphine (MORPHINE) Allergy (Intermediate, Verified 04/22/25 10:47) SWELLING alendronate sodium (From FOSAMAX) Allergy (Unknown, Verified 04/22/25 10:47) PER H+P levetiracetam (From KEPPRA) Adverse Reaction (Intermediate, Verified 04/22/25 10:47) DICKENS phenytoin (From DILANTIN) Adverse Reaction (Intermediate, Verified 04/22/25 10:47) CANT FUNCTION HPI Comments Details: The patient is a 59-year-old female presenting with a seizure disorder and tremor. She experiences episodes characterized by unresponsiveness and automatic behavior, potentially of epileptic nature, supported by EEG findings of a left temporal focus. In addition she also had episodes in the past without EEG correlate.Her history includes alcohol abuse, now in remission, with imaging confirming frontal temporal degeneration. She said that seizures were relatively controlled. Main issue was tremor and swing to 1 side and sometime losing balance. She was using a walker. [facility] Medical History (Updated 04/25/25 @ 11:29 by Nisha Payne MD) Weakness Urinary incontinence Epigastric pain Physical deconditioning Hypomagnesemia Abdominal pain Pleuritic pain Bilateral hip pain Bilateral knee pain Esophageal stricture Screening for cervical cancer Screening for colon cancer Pain in right leg Swelling of right lower extremity Breast cancer screening, high risk patient Edema Hypoglycemia Tremor Cerebral microvascular disease Hx of hiatal hernia Tubular adenoma of colon On beta matty at home Nicotine dependence, unspecified, uncomplicated Lumbosacral pain Lumbar stenosis Lumbar radiculitis Multiple pulmonary nodules COPD (chronic obstructive pulmonary disease) Osteoporosis Hypothyroid Depression Hyperlipidemia Hypertension Myocardial infarct CAD (coronary artery disease) Intracranial arachnoid cyst Cerebral atrophy Seizure Surgical History Hx of local excision of skin lesion History of foot surgery (~2013) History of tubal ligation History of heart artery stent (~2004) History of colonoscopy (~2018) History of appendectomy S/P dilatation of esophageal stricture (~2020) History of [place] fundoplication (~2019) History of esophagogastroduodenoscopy (EGD) (~2020) Family History Father Blood clots in brain Diabetes Polio Mother Breast cancer Hiatal hernia Sister Cancer Brother Myocardial infarction Family/Other Throat cancer Stomach cancer Paternal Grandmother Cancer Social History (Updated 04/22/25 @ 12:40 by Wanda Romero RN) Household Members: Other Housing: Assisted Living Facility Housing Other:: Independent Living [facility] in [place] Are you a primary acute care surgeon to a significant other at home: No Alcohol intake: former Comment: Quit ~2006 Patient Tobacco Use Status: Current everyday Tobacco user Tobacco use type: Cigarette Cigarette Packs Per Day: 0.5 Cigarettes Per Day: 10.0 Years Smoked: 42 e-Cigarette/Vaping Use: Never Used Second Hand Smoke Exposure: No Substance Use Type: Crack/Cocaine service: No Current occupational status: disabled Cognitive needs: Yes Hearing needs: Yes Vision needs: Yes Review of Systems Const Details: - Neurological: Reports tremor and seizure episodes with automatism and unresponsiveness. - Musculoskeletal: Reports mobility issues requiring the use of a walker. - Sleep: Reports issues related to sleep apnea, managed with CPAP. - General: Denies current alcohol use. Physical Exam Neuro Other: Mental Status: Alert and oriented to person, place, and time. Normal attention. Normal spontaneous speech, fluency, and comprehension. Affect is appropriate. Cranial Nerves: CN II: Visual ramos full to confrontation, visual acuity intact. CN III, IV, : Pupils equal, round, reactive to light and accommodation. Extraocular movements are normal. CN V: Facial sensation is normal. CN VII: Facial movements symmetrical. CN VIII: Hearing intact to bedside conversation is normal. CN IX, X: Palate elevates symmetrically. CN XI: Shoulder shrug and head turn symmetrical. CN XII: Tongue midline without atrophy or fasciculations. Cautious gait with a walker. [id number] hand tremor. Extrapyramidal: Full facial expressions and blinking. No rigidity. Movements are appropriate with no tremor or abnormality. Speech: Normal; no dysarthria or tremor. Results Reviewed Results Reviewed: Laboratory Tests 01/08/25 11:18 Sodium 140 Potassium 4.4 Chloride 106 Carbon Dioxide 28 Anion Gap 10 L BUN 13 Creatinine 0.69 Estim Creat Clear Calc Not Reportable Estimated GFR > 60 Random Glucose 78 Calcium 8.9 Total Bilirubin 0.3 AST 26 ALT 12 Alkaline Phosphatase 80 Total Protein 6.3 L Albumin 3.5 Assessment & Plan Assessment & Plan (1) TLE (temporal lobe epilepsy): Comment: Amb EEG at [facility] in May 2020: L temp irritability MRI brain WO at [facility] [place]: diff mod cerebral atrophy, mild MVD, post masha arachnoid cyst MRI LS spine at [facility] in May 2019: ok Routine EEG at office in Nov 2018: WNL Routine EEG in office in 2014 and Oct 2015: OK MRI brain at [facility] in Jan 2016: mod FT atrophy, mild MVD, dilated cysterna magna or cyst CT brain WO at [facility] in Jul 2015: post fossa arahcnoid cyst, mod FT atrophy PSG at [facility] in 2014: TST RDI 15, REM RDI 12, Supine RDI 30.CPAP study at [facility] in 2014: ResMed nasal mask M [id number] at [facility] in 2014: OK Code(s): G40.109 - Localization-related (focal) (partial) symptomatic epilepsy and epileptic syndromes with simple partial seizures, not intractable, without status epilepticus Category: Medical (2) Tremor: Code(s): R25.1 - Tremor, unspecified Category: Medical Plan Impression: 1.Temporal lobe epilepsy 2. History of nonepileptic episodes 3. Chronic stress now better managed as her daughter was involved in her care and was with her many hours of the day 4. Tremor 5. Multifactorial gait disorder Recommendations: 1. Continue Depakote 500 mg 1 in the morning and 2 at night 2. Primidone 50 mg 3 a day 3. Reassurance and education 4. Regular use a walker and common sense measures to avoid any falls. Medications: New primidone 50 mg PO TID 270 tabs 1RF divalproex ER 500 mg PO TID 270 tabs 1RF Coding Level of Care Code Est Pt Level 5 (30234) Diagnoses TLE (temporal lobe epilepsy) G40.109 Tremor R25.1
--- OUTSIDE RECORDS SUMMARY | 2025-04-25 12:06 | XMS_ITS | Data Portability ---
Author Organization [facility] Address [address] [facility] [address] [place] [address] Care Team Providers Care Propagation Manager Name Role Phone [facility] Primary Care Provider SILVESTRE CARY Referring Provider [phone] ANA GODINEZ Primary Care Provider [phone] Assessment Encounter Date Assessment Date Assessment LastModified [...] has been made and she needs a dumpcart driver on the day of the procedure. [...] has been made and she needs a dumpcart driver on the day of the procedure. [...] has been made and she needs a dumpcart driver on the day of the procedure. [...] By Organization Details Last Modified Time 12/04/2018 02050 She was advised to continue with activities as tolerated. [email or web address] Not available 12/04/2018 10:03:43 12/19/2018 [id number] She was advised to continue with activities as tolerated [email or web address] Not available 12/19/2018 10:40:55 08/04/2020 [id number] She was advised to continue with activities as tolerated. Telehealth visit: The patient was located at home for this telephone electronic visit and gave consent for this visit to be conducted via telehealth. 15 minutes was spent on this call and greater than 50% of the visit was spent on counseling and coordination of care. [email or web address] Not available 08/04/2020 09:57:58 09/10/2020 [id number] She was advised to continue with activities as tolerated [email or web address] Not available 09/10/2020 13:22:57 10/20/2020 08759 She was advised to continue with activities [...] Recorded Time Degeneration of cervical intervertebral disc 61004254 Active Mora rascon MD [address] [place] [address] , [address], [facility] [place], [address], [place] [facility] 6 15:49:37 Muscle pain 67639565 Active Mora rascon MD [address] , [address], [place], [address], [place] [facility] 6 15:49:37 Cervical spondylosis without myelopathy 345086585 Active Mora rascon MD [address] , [address], [place], [address], [place] [facility] 6 15:49:37 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 Mora rascon MD [address] , [address], [place], [address], [place] [facility] 6 15:41:12 Shoulder joint pain 416102732 Active Mora rascon MD [address] , [address], [place], 9, [place] [facility] 6 15:41:12 Spinal stenosis of lumbar region 24923384 Active 2016 Mora rascon MD [address] , [address], [place], [address], [place] [facility] 7 09:23:41 Displacement of lumbar intervertebral disc without myelopathy 96641928 Active 2016 Mora rascon MD [address] , [address], [place], [address], [place] [facility] 7 09:23:42 Lumbosacral radiculitis 83236015 Active 2016 Mora rascon MD [address] , [address], [place], [address], [place] [facility] 7 09:23:46 Problem Notes None recorded. Procedures Surgical History Date Name Laterality Status Provider Name and Address Organization Details Recorded Time 09/10/20 20 Lumbar Epidural steroid injection under fluoroscopic guidance completed Mora Reilly MD [address] [facility] , [address], [place], [address], [place] [facility] 09/10/2020 13:23:36 12/20/19 19 Lumbar Epidural steroid injection under fluoroscopic guidance completed Mora Reilly MD [address] [facility] , [address], [place], [address], [place] [facility] 12/19/2018 10:41:30 02/29/20 18 Lumbar Epidural steroid injection under fluoroscopic guidance completed Mora Reilly MD [address] [facility] , [address], [place], [address], [place] [facility] 02/28/2018 15:56:59 09/21/20 17 Lumbar Epidural steroid injection under fluoroscopic guidance completed Mora Reilly MD [address] [facility] , [address], [place], [address], [place] [facility] 09/22/2017 08:35:14 07/27/20 17 Lumbar Epidural steroid injection under fluoroscopic guidance completed Mora Reilly MD [address] [facility] , [address], [place], [address], [place] [facility] 07/29/2017 08:55:44 07/30/20 16 Trigger Point Injections under ultrasound guidance completed Mora Reilly MD [address] [facility] , [address], [place], [address], [place] [facility] 08/14/2016 19:23:11 07/01/20 16 Costochondral steroid injection under ultrasound guidance. completed Mora Reilly MD [address] [facility] , [address], [place], [address], [place] [facility] 07/01/2016 09:57:07 06/17/20 16 Trigger Point Injections under ultrasound guidance completed Mora Reilly MD [address] [facility] , [address], [place], [address], [place] [facility] 06/19/2016 10:54:38 06/02/20 16 Trigger Point Injections under ultrasound guidance completed Mora Reilly MD [address] , [address], [place], [address], [place] [facility] 06/02/2016 15:50:51 08/13/20 15 Costochondral steroid injection under ultrasound guidance. completed Mora Reilly MD [address] , [address], [place], [address], [place] [facility] 08/14/2015 09:44:42 05/29/20 15 Costochondral steroid injection under ultrasound guidance. completed Mora Reilly MD [address] , [address], [place], [address], [place] [facility] 05/29/2015 12:01:41 02/26/20 15 Costochondral steroid injection under ultrasound guidance. completed Mora Reilly MD [address] , [address], [place], [address], [place] [facility] 02/25/2015 11:18:19 10/01/20 14 Costochondral steroid injection under ultrasound guidance. completed Mora Reilly MD [address] , [address], [place], [address], [place] [facility] 10/11/2014 15:19:47 09/03/20 14 Costochondral steroid injection under ultrasound guidance. completed Mora Reilly MD [address] , [address], [place], [address], [place] [facility] 09/03/2014 11:25:05 08/08/20 14 Costochondral steroid injection under ultrasound guidance. completed Mora Reilly MD [address] , [address], [place], [address], [place] [facility] 08/08/2014 15:58:12 02/20/20 13 Sacroiliac Joint Steroid Injections, using Fluoroscopy completed Mora Reilly MD [address] , [address], [place], [address], [place] [facility] 02/20/2013 09:59:03 11/20/19 13 Sacroiliac Joint Steroid Injections, using Fluoroscopy completed Mora Reilly MD [address] , [address], [place], [address], [place] [facility] 11/20/2012 15:55:16 10/18/19 13 Subacromial bursal injection completed Mora Reilly MD [address] , [address], [place], [address], [place] [facility] 10/19/2012 13:28:34 09/18/20 12 Sacroiliac Joint Steroid Injections, using Fluoroscopy completed Mora Reilly MD [address] , [address], [place], [address], [place] [facility] 09/19/2012 [...] Name and Address Organization Details Recorded Time 98653 Keppra medicatio n Not available Not available Not available 05/29/2015 42511 7 RxNorm Sever e Menta tion issue s Denice Smithzier gisela, [place] [facility] 5 10:33:45 4281 morphine medicatio n Not available Not available Not available 09/13/2012 7052 RxNorm Swell ing Denice Smithzier null, [place] [facility] 2 10:58:56 4282 Dilantin medicatio n Not available Not available Not available 09/13/201284818 0 RxNorm Sever menta tion issue s [...] Or Do You Have Difficulty Seeing? No [id number] Information not available 07/25/2020 Are You Deaf Or Do You Have Serious Difficulty Hearing? Yes [id number] Information not available 07/25/2020 Which Illicit Or Recreational Drugs Have You Used? No Sober X 4 1/2 Years [id number] Information not available 07/25/2020 Education 12 Some College Information not available 09/13/2012 What Is The Highest Grade Or Level Of School You Have Completed Or The Highest Degree You Have Received? BA71282-4 [id number] Information not available 07/25/2020 How Many Days Of Moderate To Strenuous Exercise, Like A Brisk Walk, Did You Do In The Last 7 Days? 0 [id number] Information not available 07/25/2020 On Those Days That You Engage In Moderate To Strenuous Exercise, How Many Minutes, On Average, Do You Exercise? 2 [id number] Information not available 07/25/2020 How Hard Is It For You To Pay For The Very Basics Like Food, Housing, Medical Care, And Heating? [id number] Information not available 12/04/2018 Live Alone Or With Others? With Others House Mate Information not available 12/04/2018 Marital Status Informatio n not available 12/04/2018 What Was The Date Of Your Most Recent Tobacco Screening? 12/19/2018 [id number] Information not available 07/25/2020 Do You Have Difficulty Walking Or Climbing Stairs? Yes [id number] Information not available 07/25/2020 Sex: Unknown Functional Status Question Answer Note LastModified by Organizat ion Details LastModified Time What is your level of alcohol consumption? None [id number] Information not available 07/25/2020 Are you currently employed? No [id number] Information not available 07/25/2020 Do you have difficulty doing errands alone? 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 Yes Sometimes [id number] Information not available 07/25/2020 Mental Status Question Answer Note LastModified by Organizat ion Details LastModified Time Do you feel stressed (tense, restless, nervous, or anxious, or unable to sleep at night)? [id number] Information not available 07/25/2020 Do you have difficulty concentrating, remembering or making decisions? Yes [id number] Information no t available 07/25/2020 Family History Nothing Reported. Medical History Condition Response Diabetes Y Coronary Artery Disease Y Migrane Y Seizures/Epilepsy Y Arthritis Y GERD/Reflux Y High Cholesterol Y Hypertension Y COPD Y Gynecological HistoryNo gynecological history recorded. Obstetrics History GPAL:G 0 P 0 0 0 0 Past Encounters Encounter ID Performer Location Encounter Start Date Encounter Closed Date Diagnosis/Indication Diagnosis SNOMED-CT Code Diagnosis ICD10 Code Diagnosis Note [id number] Mora Reilly MD PAIN OFFICE [address] [facility] [place] [address] 09/13/2012 10:32:36 09/13/2012 15:53:15 [id number] Mora Reilly MD PAIN OFFICE [address] [facility] [place] [address] 09/18/2012 14:40:11 09/18/2012 15:42:39 [id number] Mora Reilly MD PAIN OFFICE [address] [facility] [place] [address] 10/18/2012 13:03:22 10/18/2012 16:07:14 [id number] Mora Reilly MD PAIN OFFICE [address] [facility] [place] [address] 11/20/2012 12:53:54 11/20/2012 15:34:59 [id number] Mora Reilly MD PAIN OFFICE [address] [place] [address] 02/06/2013 10:05:10 02/06/2013 14:35:05 [id number] Mora Reilly MD PAIN OFFICE [address] [place] [address] 02/19/2013 13:29:03 02/19/2013 15:51:22 [id number] Mora Reilly MD PAIN OFFICE [address] [place] [address] 07/17/2014 08:10:56 07/30/2014 15:16:18 Tietze's disease [id number] [id number] Mora Reilly MD PAIN OFFICE [address] [place] [address] 08/08/2014 13:32:47 08/08/2014 15:59:34 Tietze's disease 26281053 [id number] Mora Reilly MD PAIN OFFICE [address] [place] [address] 09/03/2014 10:35:08 09/03/2014 11:26:47 Inflammation of sacroiliac joint 50276574 Tietze's disease 89292064 Shoulder joint pain 285265515 [id number] Mora Reilly MD PAIN OFFICE [address] [place] [address] 10/01/2014 09:40:42 10/11/2014 15:21:30 Inflammation of sacroiliac joint 02891473 Tietze's disease 39832833 Shoulder joint pain 871887530 [id number] Mora Reilly MD PAIN OFFICE [address] [place] [address] 12/04/2014 10:47:37 12/04/2014 13:15:12 Inflammation of sacroiliac joint 59702742 Tietze's disease 67754473 Shoulder joint pain 007962448 [id number] Mora Reilly MD PAIN OFFICE [address] [place] [address] 02/25/2015 08:34:47 02/25/2015 13:20:22 Inflammation of sacroiliac joint 51216326 Tietze's disease 37558287 Shoulder joint pain 325602431 [id number] Mora Reilly MD PAIN OFFICE [address] [facility] [place] [address] 05/29/2015 10:04:54 05/29/2015 12:03:12 Inflammation of sacroiliac joint 59585854 Tietze's disease 49172211 Shoulder joint pain 860443635 [id number] Mora Reilly MD PAIN OFFICE [address] [facility] [place] [address] 08/13/2015 13:06:44 08/14/2015 09:45:21 Inflammation of sacroiliac joint 14379810 M46.1 Tietze's disease 7497084 9 M94.0 Shoulder joint pain 2679 31060 M25.512 [id number] Mora Reilly MD PAIN OFFICE [address] [facility] [place] [address] 12/30/2015 12:55:59 12/30/2015 13:53:52 Inflammation of sacroiliac joint 46982121 M46.1 [id number] Mora Reilly MD PAIN OFFICE [address] [facility] [place] [address] 06/02/2016 11:20:00 06/02/2016 15:51:02 Cervical spondylosis without myelopathy 099324714 M47.812 Muscle pain 75073053 M79 .1 Degenerati on of cervical intervertebral disc 42165809 M50.30 [id number] Mora Reilly MD PAIN OFFICE [address] [facility] [place] [address] 06/17/2016 08:53:49 06/19/2016 11:01:16 Cervical spondylosis without myelopathy 594688813 M47.812 Muscle pain 20326308 M79 .1 Degenerati on of cervical intervertebral disc 83242847 M50.30 [id number] Mora Reilly MD PAIN OFFICE [address] [facility] [place] [address] 07/01/2016 09:26:06 07/01/2016 13:27:19 Inflammation of sacroiliac joint 93137911 M46.1 Tietze's disease 7047674 9 M94.0 Shoulder joint pain 2679 96319 M25.512 [id number] Mora Reilly MD PAIN OFFICE [address] [facility] [place] [address] 07/30/2016 09:08:52 08/22/2016 11:46:05 Cervical spondylosis without myelopathy 004866779 M47.812 Muscle pain 27798475 M79 .1 Degenerati on of cervical intervertebral disc 83920344 M50.30 [id number] Mora Reilly MD PAIN OFFICE [address] [facility] [place] [address] 07/07/2017 08:16:05 07/07/2017 09:24:56 Lumbosacral radiculitis 08587847 M54.17 Spinal abram nosis of lumbar region 90930406 M48.06 Displaceme nt of lumbar intervertebral disc without myelopathy 22646647 M51.26 Inflammati on of sacroiliac joint 37508457 M46.1 [id number] Mora Reilly MD PAIN OFFICE [address] [facility] [place] [address] 07/27/2017 09:52:38 07/29/2017 14:32:39 Lumbosacral radiculitis 13594908 M54.17 Spinal abram nosis of lumbar region 42447645 M48.062 Displaceme nt of lumbar intervertebral disc without myelopathy 87067232 M51.26 Inflammati on of sacroiliac joint 08734294 M46.1 [id number] Mora Reilly MD [facility] PAIN OFFICE [address] [facility] [place] [address] 08/29/2017 09:17:14 08/29/2017 10:31:46 Lumbosacral radiculitis 25849527 M54.17 Spinal baram nosis of lumbar region 71262135 M48.062 Displaceme nt of lumbar intervertebral disc without myelopathy 43719372 M51.26 Inflammati on of sacroiliac joint 96180768 M46.1 [id number] Mora Reilly MD [facility] PAIN OFFICE [address] [place] [address] 09/21/2017 11:43:42 09/22/2017 09:27:57 Lumbosacral radiculitis 41973409 M54.17 Spinal abram nosis of lumbar region 25553805 M48.062 Displaceme nt of lumbar intervertebral disc without myelopathy 23042892 M51.26 Inflammati on of sacroiliac joint 86725123 M46.1 [id number] Mora Reilly MD PAIN OFFICE [address] [place] [address] 02/28/2018 13:30:09 02/28/2018 15:59:37 Lumbosacral radiculitis 42884761 M54.17 Spinal abram nosis of lumbar region 14306625 M48.062 Displaceme nt of lumbar intervertebral disc without myelopathy 76213729 M51.26 Inflammati on of sacroiliac joint 29951022 M46.1 [id number] Mora Reilly MD PAIN OFFICE [address] [place] [address] 12/04/2018 09:17:20 12/04/2018 10:07:57 Lumbosacral radiculitis 42947791 M54.17 Spinal abram nosis of lumbar region 33961921 M48.062 Displaceme nt of lumbar intervertebral disc without myelopathy 63739614 M51.26 Inflammati on of sacroiliac joint 68258589 M46.1 [id number] Mora Reilly MD PAIN OFFICE [address] [place] [address] 12/19/2018 08:26:46 12/19/2018 10:59:08 Lumbosacral radiculitis 26859468 M54.17 Spinal abram nosis of lumbar region 80614023 M48.062 Displaceme nt of lumbar intervertebral disc without myelopathy 78995195 M51.26 Inflammati on of sacroiliac joint 81205449 M46.1 [id number] Mora Reilly MD [facility] PAIN [facility]ICE [address] [facility] [place] [address] 08/04/2020 09:52:18 08/04/2020 13:06:36 Displacement of lumbar intervertebral disc without myelopathy 74659035 M51.26 Lumbosacra l radiculitis 00398810 M54.17 Spinal abram nosis of lumbar region 39525875 M48.062 Inflammati on of sacroiliac joint 50467053 M46.1 [id number] Mora Reilly MD [facility] PAIN OFFICE [address] [facility] [place] [address] 09/10/2020 12:51:41 09/10/2020 13:26:05 Lumbosacral radiculitis 34887996 M54.17 Spinal abram nosis of lumbar region 64567215 M48.062 Displaceme nt of lumbar intervertebral disc without myelopathy 92932507 M51.26 Inflammati on of sacroiliac joint 24375489 M46.1 [id number] Mora Reilly MD [facility] PAIN OFFICE [address] [facility] [place] [address] 10/20/2020 09:03:15 10/20/2020 09:11:00 Displacement of lumbar intervertebral disc without myelopathy 42881816 M51.26 Lumbosacra l radiculitis 08230748 M54.17 Spinal abram nosis of lumbar region 41759616 M48.062 Inflammati on of sacroiliac joint 61739419 M46.1 Health Concerns Section Related Observation LastModified by Organization Detai ls LastModified Time None Recorded Concern Status LastModified by Organization Details LastModified Time None Recorded Advance Directives Directive None Recorded Payers Insurance Date Sequence Insurance Name Policy Number Policy Marie Covered Member ID Marie Member ID Guarantor Name 10/20/2020 1 [place] [facility] Yuli Duke [id number] Yuli Duke 10/20/2020 1 [facility] [id number] Yuli Duke [id number] Yuli Duke 10/20/2020 1 MEDICARE B[place] [facility] Yuli Duke [id number] Yuli Duke Notes Date Note Type Note [...] or bowel incontinence. Mora Reilly MD [address] [facility] [address] [address], [place], [address], [place] - [facility] 12/04/2018 13:52:29 12/19/2018 text/html She is here for a repeat lumbar epidural steroid injection under fluoroscopic guidance. Mora Reilly MD [address] [address], [place], [address], [place] [facility] 12/21/2018 10:09:19 08/04/2020 [...] or bowel incontinence. Mora Reilly MD [address] [facility] , [facility] [address], [place], [address], [place] - [facility] 08/05/2020 08:21:38 09/10/2020 text/html She is here for a lumbar epidural steroid injection under fluoroscopic guidance. Mora Reilly MD [address] [facility] , [facility] [address], [place], [address], [facility] - Pain Management 09/11/2020 16:25:02 10/20/2020 text/html [...] or bowel incontinence. Mora Reilly MD [address] [place] [address] , [address], [place], [address], [facility] - Pain Management 10/20/2020 10:25:18 OBGyn Episode No OBEpisode recorded.
--- OUTSIDE RECORDS SUMMARY | 2025-04-25 12:06 | XMS_ITS | Continuity of Care Document ---
Author Organization [facility] Address [address] [facility] [address] [place] [address] Phone [phone] Social History Type Date Description Comments Sex Female Sex Unknown Medical Devices Description No Information Available Encounters Description No Information Available Assessments Description No Information Available Plan of Treatment No Information Available Functional Status Description No Information Available Mental Status Description No Information Available Referrals Description No Information Available
--- OUTSIDE RECORDS SUMMARY | 2025-04-25 12:06 | XMS_ITS | Clinical Summary ---
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
== END 2025-04-25 11:37 | disposition home or self-care (01) ==
LOC: HO.HSM 11:16
PROVIDERS: PCP Nurse Practitioner Family; Visit Provider Psychiatry & Neurology Neurology
DX: G40.109 Localization-related (focal) (partial) symptomatic epilepsy and epileptic syndromes with simple partial seizures, not intractable, without status epilepticus (principal); R25.1 Tremor, unspecified
CPT/HCPCS: 99214

== ENCOUNTER → 2025-04-25 11:15 | Outpatient (BNVA) | payer MEDICARE, MEDICAID, SELFPAY | PROVIDERS: PCP Nurse Practitioner Family; Visit Provider Psychiatry & Neurology Neurology | DX: G40.109 Localization-related (focal) (partial) symptomatic epilepsy and epileptic syndromes with simple partial seizures, not intractable, without status epilepticus (principal); R25.1 Tremor, unspecified; Z79.899 Other long term (current) drug therapy | CPT/HCPCS: 99212 ==

== ENCOUNTER 2025-04-26 09:48 | Outpatient (REF) | payer MEDICARE, MEDICAID, SELFPAY ==
--- NOTE | ~2025-04-26 | US_ITS ---
CLINICAL HISTORY: R11.2 - Nausea with vomiting, unspecified US abdomen complete Comparison: None provided Findings: The visualized pancreas is normal, pancreatic tail is not well seen due to bowel gas shadowing The visualized aorta and inferior vena cava are normal caliber. The liver is mildly small, right lobe length is 12 cm. Normal in echogenicity, no discrete lesion is visualized in the imaged liver. No intrahepatic bile duct dilatation. The common duct is 2 mm in diameter. The gallbladder is normal. Negative sonographic Oliveira sign. The main portal vein is patent with antegrade flow. The right kidney is normal, 9 cm in length. The left kidney is normal, 9 cm in length. The spleen is normal, 8 cm in length. No free fluid in the abdomen. Impression: No acute finding. No sonographic finding to account for nausea or vomiting. This document has been electronically signed by: Liana Slater MD on 04/26/2025 13:31:16
--- OUTSIDE RECORDS SUMMARY | 2025-04-26 09:57 | XMS_ITS | Clinical Summary ---
Author Organization [facility] it Address [address] [place] [address] Care Team Providers Care Security Control Room Officer Name Role Phone Jose Garcia MD [...] Documents on File Type Date Recorded Patient Assistant Manager Bilingual Expl anation Health Care Decision (hx) 09/18/2020 AD LAUREANO DIRECTIVE Health Care Decision (hx) 09/18/2020 AD LAUREANO DIRECTIVE Health Care Decision (hx) 09/18/2020 AD LAUREANO DIRECTIVE Care Teams Security Control Room Officer Relationship Specialty Start Date End Date Jose Garcia MD PCP - General Internal Medicine 02/26/22
--- OUTSIDE RECORDS SUMMARY | 2025-04-26 09:57 | XMS_ITS | Continuity of Care Document ---
Author Organization [facility] Address [address] [facility] [address] [place] [address] Phone [phone] Social History Type Date Description Comments Sex Female Sex Unknown Medical Devices Description No Information Available Encounters Description No Information Available Assessments Description No Information Available Plan of Treatment No Information Available Functional Status Description No Information Available Mental Status Description No Information Available Referrals Description No Information Available
--- OUTSIDE RECORDS SUMMARY | 2025-04-26 09:57 | XMS_ITS | Clinical Summary ---
Author Organization [facility] Address [address] [address] Phone Care Team Providers Care Overnight Associate Name Role Phone Jose Garcia MD Primary Care Provider [phone] Allergies Active Allergy Reactions Criticality Noted Date Comments Phenytoin Sodium Extended 05/26/2017 Other reaction(s): confusion Latex, Natural Rubber Itching 11/25/2017 Levetiracetam 05/26/2017 Other reaction(s): mood swings Morphine 05/26/2017 Other reaction(s): swelling Medications aspirin 81 MG EC tablet 1 tablet Active buPROPion (WELLBUTRIN) 75 MG immediate release tablet 1 tablet Activ e clonazePAM (KLONOPIN) 0.5 MG tablet 1 tablet Active divalproex (DEPAKOTE) [address] tablet 2 tablets at bedtime Active donepezil (ARICEPT) 5 MG tablet 1 tablet at bedtime Active levothyroxine (SYNTHROID, LEVOTHROID) 50 MCG tablet 75 MCG Active pravastatin (PRAVACHOL) 40 MG tablet 1 tablet Active primidone (MYSOLINE) 50 MG tablet 2 tablets three times a day Active QUEtiapine (SEROQUEL) 50 MG tablet 200 mg daily Active sertraline (ZOLOFT) 100 MG tablet 2 tablets Active trospium (SANCTURA) 20 mg tablet Active cholecalciferol (VITAMIN D3) 2,000 unit capsule 1 capsule Active budesonide-formo terol (SYMBICORT) 160-4.5 mcg/actuation inhalerIndicatio ns:Centrilobular emphysema Inhale 2 puffs into the lungs 2 (two) times a day. 1 Inhaler 5 11/25/19 18 Active Additional Information Patient not taking.Reported on 03/06/2019 METOPROLOL SUCCINATE ORAL Activ e ranolazine (RANEXA) 500 MG 12 hr tablet Take 500 mg by mouth 2 (two) times a day. Active nebulizer and compressor DeviIndications: COPD with acute exacerbation 1 Device by Miscellaneous route 2 (two) times a day. 1 each 09/20/20 18 Active Additional Information Patient not taking.Reported on 03/06/2019 roflumilast (DALIRESP) 500 mcg Tab Take 1 tablet (500 mcg total) by mouth daily. 30 tablet 11 03/06/20 19 Active SPIRIVA RESPIMAT 2.5 mcg/actuation mist for inhalationIndica tions:Centrilobu lar emphysema inhale 2 puffs by mouth once daily 4 g 5 05/24/20 19 Active Active Problems Problem Noted Date Diagnosed Date Chronic obstructive pulmonar y disease with acute exacerbation 11/25/2017 Assessment & Plan (03/06/2019 1:52 PM EDT): Cont meds as ordered by PCP. Will restart Daliresp. Cont nebs Assessment & Plan (09/20/2018 11:29 AM EST): We will try another course of prednisone. Patient unable to afford her inhalers. Will order a nebulizer and DuoNeb's to be taken 4 times daily while she is ill and then decrease to twice daily thereafter. Assessment & Plan (02/09/2018 3:21 PM EDT): Continue with inhalers and daliresp. Patient is tolerating it well. Assessment & Plan (11/25/2017 10:27 AM EST): Recommend restarting Spiriva and Symbicort. Continue with Daliresp. Check sputum culture. Pulmonary nodules 11/25/2017 Assessment & Plan (03/06/2019 1:53 PM EDT): CT chest overdue. Will reorder now. Assessment & Plan (09/20/2018 11:28 AM EST): Next CAT scan to be performed January 2019 following pulmonary nodules. Assessment & Plan (02/09/2018 3:20 PM EDT): Pulmonary nodule stable since May 2017. Continue to follow until May 2019. Assessment & Plan (11/25/2017 10:28 AM EST): Will order CT chest for follow-up pulmonary nodules. Would wait another 2 months to allow her pneumonia to fully resolve. Family History Medical History Relation Comments Asthma Father Asthma Mother Asthma Sister Relation Status Comments Father Mother Sister Social History Tobacco Use Types Packs/Day Years Used Date Smoking Tobacco: Every Day Cigarettes Last attempted to quit: 01/26/2018 Smokeless Tobacco: Never Comments:went back on Chanti x Alcohol Use Standard Drinks/Week Comments No 0 (1 standard drink = 0.6 oz pur e alcohol) Education Answer Date Recorded Are you interested in more education? Not on trevon e 02/04/2023 Are you concerned about learning? Not on file 02/04/2023 No 02/04/2023 No 02/04/2023 Digital Access Answer Date Recorded No 03/05/2023 No 03/05/2023 No 03/05/2023 Reliable internet access at home? Not on file 03/05/2023 Device with a working camera? Not on file Comments Unknown Sex and Gender Information Value Date Recorded Sex Assigned at Not on file Legal Sex Female 9:42 PM EDT Gender Identity Not on file Sexual Orientation Not on file Last Filed Vital Signs Vital Sign Reading Time Taken Comments Blood Pressure 115/81 03/06/2019 1:28 PM EDT Pulse 67 03/06/2019 1:28 PM EDT Temperature 36.9 C (98.4 F) 11/25/2017 9:59 AM EST Respiratory Rate - - Oxygen Saturation 96% 03/06/2019 1:28 PM EDT Inhaled Oxygen Concentration - - Weight 54 kg (119 lb) 03/06/2019 1:28 PM EDT Height 142.2 cm (4' 8 ) 05/26/2017 9:19 AM EDT Body Mass Index 26.68 05/26/2017 9:19 AM EDT Plan of Treatment Health Maintenance Due Date Last Done Comments Adult Td,Tdap Booster 1964 LIPID PANEL 1964 TSH LEVEL 1964 VALPROIC ACID (DEPAKENE) LEVEL 1964 DEPRESSION SCREENING 1976 SMOKING Hx and SMOKELESS TOB ACCO SCREENING 1977 HEPATITIS C SCREENING 1982 HIV ONE-TIME SCREENING (18-6 5 YEARS) 1982 PNEUMOCOCCAL VACCINES (50+ y ears) (1 of 2 - PCV) 1983 PAP SMEAR 1985 MAMMOGRAM 2004 COLOGUARD 2009 COLONOSCOPY 2009 COLORECTAL CANCER SCREENING 2009 FIT TEST 2009 FOBT 2009 SIGMOIDOSCOPY 2009 VIRTUAL COLONOSCOPY 2009 ZOSTER VACCINES (1 of 2) 2014 COVID-19 VACCINE (2 - 2023-2 5 season) 2024 02/08/2021 RSV VACCINE (1 - Risk 60-74 years 1-dose series) 2024 HEPATITIS A VACCINES Aged Out No long er eligible based on patient's age to complete this topic HIB VACCINES Aged Out No longer eligi ble based on patient's age to complete this topic MENINGOCOCCAL VACCINES (ACWY) Aged Out No longer eligible based on patient's age to complete this topic MENINGOCOCCAL VACCINES (B) Aged Out N o longer eligible based on patient's age to complete this topic Medical Devices Not on file Insurance MEDICARE PART A & B MEDICARE PART A & B MEDICARE PART A & B MEDICARE PART A & B MEDICARE PART A & B MEDICARE PART A & B MEDICARE PART A & B MEDICARE PART A & B MEDICARE PART A & B Care Teams Overnight Associate Relationship Specialty Start Date End Date Jose Garcia MD [email or web address] PCP - General Internal Medicine 03/06/19 Additional Source Comments The information contained in this document represents components of the legal health record. It is not the complete legal health record.[facility]
[2025-04-26 12:55] LABS: MANUAL DIFF FLAG NO
[2025-04-26 13:05] LABS: Hematocrit 41.0 % (37.0-47.0); Hemoglobin 13.5 g/dl (12.0-16.0); Imm Gran Abs Auto 0.01 X10*3/uL (0.00-0.03); Imm Gran Pct Auto 0.2 % (0.0-0.4); Lymphocytes Absolute Auto 1.5 X10*3/uL (1.2-4.9); Mean Corpuscular HGB Conc 32.9 g/dl (31.0-35.0); Mean Corpuscular Hemoglobin 30.3 pg (27.0-33.0); Mean Corpuscular Volume 92.1 fL (80.0-98.0); NRBC Abs Auto 0.000 X10*3/uL (0.0-0.012); NRBC Pct Auto 0.0 /100WBC (0.0-0.2); Platelet Count 231 X10*3/uL (160-400); Red Blood Count 4.45 X10*6/uL (4.20-5.50); White Blood Count 4.3 X10*3/uL (4.8-10.8)
[2025-04-26 13:29] LABS: Alanine Aminotransferase 7 U/L (0-31); Albumin Level 3.9 g/dL (3.5-5.0); Alkaline Phosphatase 82 U/L (39-117); Anion Gap 12 (12-20); Aspartate Amino Transferase 24 U/L (5-31); Blood Urea Nitrogen 7 mg/dL (9-16); Calcium 9.2 mg/dL (8.4-10.2); Carbon Dioxide 29 mmol/L (22-29); Chloride 99 mmol/L (96-108); Cholesterol 168 mg/dL (<200); Estimated Glomerular Filt Rate > 60; HDL Cholesterol 84 mg/dL (>40); Potassium 4.8 mmol/L (3.3-5.1); Sodium 135 mmol/L (135-145); Total Protein 7.0 g/dL (6.5-8.0); Triglycerides 71 mg/dL (<150)
== END 2025-04-26 09:49 | disposition home or self-care (01) ==
LOC: HO.HMGCX 09:48
PROVIDERS: PCP Nurse Practitioner Family; Referring Provider Nurse Practitioner Family; Visit Provider Nurse Practitioner
DX: R11.2 Nausea with vomiting, unspecified (principal); E78.5 Hyperlipidemia, unspecified
CPT/HCPCS: 36415; 76700; 80053; 80061; 84443; 85025

== ENCOUNTER → 2025-04-26 10:00 | Outpatient (BNV) | payer MEDICARE, MEDICAID, SELFPAY | PROVIDERS: PCP Nurse Practitioner Family; Referring Provider Nurse Practitioner Family; Visit Provider Radiology Diagnostic Radiology | DX: R11.2 Nausea with vomiting, unspecified (principal) | CPT/HCPCS: 76700 ==

== ENCOUNTER 2025-05-07 09:25 | Outpatient (REF) | payer MEDICARE, MEDICAID, SELFPAY ==
--- OUTSIDE RECORDS SUMMARY | 2025-05-07 09:52 | XMS_ITS | Continuity of Care Document ---
Author Organization [facility] Address [address] [place] [address] Phone [phone] Social History Type Date Description Comments Sex Female Sex Unknown Medical Devices Description No Information Available Encounters Description No Information Available Assessments Description No Information Available Plan of Treatment No Information Available Functional Status Description No Information Available Mental Status Description No Information Available Referrals Description No Information Available
--- OUTSIDE RECORDS SUMMARY | 2025-05-07 09:52 | XMS_ITS | Clinical Summary ---
Author Organization [facility] it Address [address] [place] [address] Care Team Providers Care Blow Up Operator Name Role Phone Jose Garcia MD [...] Documents on File Type Date Recorded Patient Removable Prosthodontist Expl anation Health Care Decision (hx) 09/18/2020 AD LAUREANO DIRECTIVE Health Care Decision (hx) 09/18/2020 AD LAUREANO DIRECTIVE Health Care Decision (hx) 09/18/2020 AD LAUREANO DIRECTIVE Care Teams Blow Up Operator Relationship Specialty Start Date End Date Jose Garcia MD PCP - General Internal Medicine 02/26/22
--- OUTSIDE RECORDS SUMMARY | 2025-05-07 09:53 | XMS_ITS | Data Portability ---
Author Organization [facility] Address [address] [facility] [address] [place] [address] Care Team Providers Care Furnace Brazer Name Role Phone [facility] Primary Care Provider SILVESTRE CARY Referring Provider [...] has been made and she needs a courier driver on the day of the procedure. [...] has been made and she needs a courier driver on the day of the procedure. [...] has been made and she needs a courier driver on the day of the procedure. [...] By Organization Details Last Modified Time 12/04/2018 13310 She was advised to continue with activities as tolerated. [email or web address] Not available 12/04/2018 10:03:43 12/19/2018 [id number] She was advised to continue with activities as tolerated [email or web address] Not available 12/19/2018 10:40:55 08/04/2020 05081 She was advised to continue with activities as tolerated. Telehealth visit: The patient was located at home for this telephone electronic visit and gave consent for this visit to be conducted via telehealth. 15 minutes was spent on this call and greater than 50% of the visit was spent on counseling and coordination of care. [email or web address] Not available 08/04/2020 09:57:58 09/10/2020 32634 She was advised to continue with activities as tolerated [email or web address] Not available 09/10/2020 13:22:57 10/20/2020 55079 She was advised to continue with activities [...] Recorded Time Degeneration of cervical intervertebral disc 54861304 Active Mora rascon MD [address] [place] [address] , [address], [facility] [place], [address], [place] [facility] 6 15:49:37 Muscle pain 86031033 Active Mora rascon MD [address] , [address], [place], [address], [place] [facility] 6 15:49:37 Cervical spondylosis without myelopathy 930620063 Active Mora rascon MD [address] , [address], [place], [address], [place] [facility] 6 15:49:37 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 Mora rascon MD [address] , [address], [place], [address], [place] [facility] 6 15:41:12 Shoulder joint pain 538295284 Active Mora rascon MD [address] , [address], [place], 9, [place] [facility] 6 15:41:12 Spinal stenosis of lumbar region 88462697 Active 2016 Mora rascon MD [address] , [address], [place], [address], [place] [facility] 7 09:23:41 Displacement of lumbar intervertebral disc without myelopathy 76540541 Active 2016 Mora rascon MD [address] , [address], [place], [address], [place] [facility] 7 09:23:42 Lumbosacral radiculitis 90147258 Active 2016 Mora rascon MD [address] , [address], [place], [address], [place] [facility] 7 09:23:46 Problem Notes None recorded. Procedures Surgical History Date Name Laterality Status Provider Name and Address Organization Details Recorded Time 09/10/20 20 Lumbar Epidural steroid injection under fluoroscopic guidance completed Mora Reilly MD [address] [facility] [address], [place], [address], [place] [facility] 09/10/2020 13:23:36 12/20/19 19 Lumbar Epidural steroid injection under fluoroscopic guidance completed Mora Reilly MD [address] [facility] [address], [place], [address], [place] [facility] 12/19/2018 10:41:30 02/29/20 18 Lumbar Epidural steroid injection under fluoroscopic guidance completed Mora Reilly MD [address] [facility] , [address], [place], [address], [place] [facility] 02/28/2018 15:56:59 09/21/20 17 Lumbar Epidural steroid injection under fluoroscopic guidance completed Mora Reilly MD [address] [facility] [address], [place], [address], [place] [facility] 09/22/2017 08:35:14 07/27/20 17 Lumbar Epidural steroid injection under fluoroscopic guidance completed Mora Reilly MD [address] [facility] [address], [place], [address], [place] [facility] 07/29/2017 08:55:44 07/30/20 16 Trigger Point Injections under ultrasound guidance completed Mora Reilly MD [address] [facility] [address], [place], [address], [place] [facility] 08/14/2016 19:23:11 07/01/20 16 Costochondral steroid injection under ultrasound guidance. completed Mora Reilly MD [address] [facility] [address], [place], [address], [place] [facility] 07/01/2016 09:57:07 06/17/20 16 Trigger Point Injections under ultrasound guidance completed Mora Reilly MD [address] [facility] [address], [place], [address], [place] [facility] 06/19/2016 10:54:38 06/02/20 16 Trigger Point Injections under ultrasound guidance completed Mora Reilly MD [address] , [address], [place], [address], [place] [facility] 06/02/2016 15:50:51 08/13/20 15 Costochondral steroid injection under ultrasound guidance. completed Mora Reilly MD [address] , [address], [place], [address], [place] [facility] 08/14/2015 09:44:42 05/29/20 15 Costochondral steroid injection under ultrasound guidance. completed Mora Reilly MD [address] , [address], [place], [address], [place] [facility] 05/29/2015 12:01:41 02/26/20 15 Costochondral steroid injection under ultrasound guidance. completed Mora Reilly MD [address] , [address], [place], [address], [place] [facility] 02/25/2015 11:18:19 10/01/20 14 Costochondral steroid injection under ultrasound guidance. completed Mora Reilly MD [address] , [address], [place], [address], [place] [facility] 10/11/2014 15:19:47 09/03/20 14 Costochondral steroid injection under ultrasound guidance. completed Mora Reilly MD [address] , [address], [place], [address], [place] [facility] 09/03/2014 11:25:05 08/08/20 14 Costochondral steroid injection under ultrasound guidance. completed Mora Reilly MD [address] , [address], [place], [address], [place] [facility] 08/08/2014 15:58:12 02/20/20 13 Sacroiliac Joint Steroid Injections, using Fluoroscopy completed Mora Reilly MD [address] , [address], [place], [address], [place] [facility] 02/20/2013 09:59:03 11/20/19 13 Sacroiliac Joint Steroid Injections, using Fluoroscopy completed Mora Reilly MD [address] , [address], [place], [address], [place] [facility] 11/20/2012 15:55:16 10/18/19 13 Subacromial bursal injection completed Mora Reilly MD [address] , [address], [place], [address], [place] [facility] 10/19/2012 13:28:34 09/18/20 12 Sacroiliac Joint Steroid Injections, using Fluoroscopy completed Mora Reilly MD [address] , [address], [place], [address], [place] [facility] 09/19/2012 [...] Name and Address Organization Details Recorded Time 18898 Keppra medicatio n Not available Not available Not available 05/29/2015 99398 7 RxNorm Sever e Menta tion issue s Denice Smithzier gisela, [place] [facility] 5 10:33:45 4281 morphine medicatio n Not available Not available Not available 09/13/2012 7052 RxNorm Swell ing Denice Smithzier null, [place] [facility] 2 10:58:56 4282 Dilantin medicatio n Not available Not available Not available 09/13/201298733 0 RxNorm Sever menta tion issue s [...] verbal numeric rating [Score] - Reported Systolic And Diastolic Provider Name and Address Organization Details Last Updated DateTime 0 69 /min 96 % 96 % 10 154/96 mm[Hg] Connie rascon [place] [facility] 0 13:01:58 Social History Question Answer Notes LastModified by [employer] Details LastModified Time Tobacco Smoking Status Current Every Day Smoker Not Available [employer] 07/25/2020 03:16:10 Are You Blind Or Do You Have Difficulty Seeing? No [id number] Information not available 07/25/2020 Are You Deaf Or Do You Have Serious Difficulty Hearing? Yes [id number] Information not available 07/25/2020 Which Illicit Or Recreational Drugs Have You Used? No Sober X 4 1/2 Years [id number] Information not available 07/25/2020 Education 12 Some College Information not available 09/13/2012 What Is The Highest Grade Or Level Of School You Have Completed Or The Highest Degree You Have Received? [id number] [id number] Information not available 07/25/2020 How Many Days Of Moderate To Strenuous Exercise, Like A Brisk Walk, Did You Do In The Last 7 Days? 0 [id number] Information not available 07/25/2020 On Those Days That You Engage In Moderate To Strenuous Exercise, How Many Minutes, On Average, Do You Exercise? 2 [id number] Information not available 07/25/2020 How Hard Is It For You To Pay For The Very Basics Like Food, Housing, Medical Care, And Heating? [id number] Information not available 12/04/2018 Live Alone Or With Others? With Others House Mate Information not available 12/04/2018 Marital Status Informatio n not available 12/04/2018 What Was The Date Of Your Most Recent Tobacco Screening? 12/19/2018 [id number] Information not available 07/25/2020 Do You Have Difficulty Walking Or Climbing Stairs? Yes [id number] Information not available 07/25/2020 Sex: Unknown Functional Status Question Answer Note LastModified by [employer] Details LastModified Time What is your level of alcohol consumption? None [id number] Information not available 07/25/2020 Are you currently employed? No [id number] Information not available 07/25/2020 Do you have difficulty doing errands alone? 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 Yes Sometimes [id number] Information not available 07/25/2020 Mental Status Question Answer Note LastModified by Organizat ion Details LastModified Time Do you feel stressed (tense, restless, nervous, or anxious, or unable to sleep at night)? [id number] Information not available 07/25/2020 Do you have difficulty concentrating, remembering or making decisions? Yes [id number] Information no t available 07/25/2020 Family History Nothing Reported. Medical History Condition Response Coronary Artery Disease Y COPD Y Arthritis Y High Cholesterol Y Migrane Y Diabetes Y Seizures/Epilepsy Y GERD/Reflux Y Hypertension Y Gynecological HistoryNo gynecological history recorded. Obstetrics History GPAL:G 0 P 0 0 0 0 Past Encounters Encounter ID Performer Location Encounter Start Date Encounter Closed Date Diagnosis/Indication Diagnosis SNOMED-CT Code Diagnosis ICD10 Code Diagnosis Note [id number] Mora Reilly MD PAIN OFFICE [address] [facility] [place] [address] 09/13/2012 10:32:36 09/13/2012 15:53:15 [id number] Mora Reilly MD PAIN OFFICE [address] [facility] [place] [address] 09/18/2012 14:40:11 09/18/2012 15:42:39 [id number] Mora Reilly MD PAIN OFFICE [address] [facility] [place] [address] 10/18/2012 13:03:22 10/18/2012 16:07:14 [id number] Mora Reilly MD PAIN OFFICE [address] [facility] [place] [address] 11/20/2012 12:53:54 11/20/2012 15:34:59 [id number] Mora Reilly MD [facility] PA[facility] [address] [place] [address] 02/06/2013 10:05:10 02/06/2013 14:35:05 [id number] Mora Reilly MD [facility] PA[facility] [address] [place] [address] 02/19/2013 13:29:03 02/19/2013 15:51:22 [id number] Mora Reilly MD [facility] PA[facility] [address] [place] [address] 07/17/2014 08:10:56 07/30/2014 15:16:18 Tietze's disease 60286025 [id number] Mora Reilly MD [facility] PA[facility] [address] [place] [address] 08/08/2014 13:32:47 08/08/2014 15:59:34 Tietze's disease 61550820 [id number] Mora Reilly MD [facility] PA[facility] [address] [place] [address] 09/03/2014 10:35:08 09/03/2014 11:26:47 Inflammation of sacroiliac joint 48234600 Tietze's disease 42543662 Shoulder joint pain 053766100 [id number] Mora Reilly MD [facility] PAIN [facility]ICE [address] [place] [address] 10/01/2014 09:40:42 10/11/2014 15:21:30 Inflammation of sacroiliac joint 82275452 Tietze's disease 18431379 Shoulder joint pain 114933283 [id number] Mora Reilly MD [facility] PAIN [facility]ICE [address] [place] [address] 12/04/2014 10:47:37 12/04/2014 13:15:12 Inflammation of sacroiliac joint 51249104 Tietze's disease 45236084 Shoulder joint pain 383835785 [id number] Mora Reilly MD [facility] PAIN [facility] [address] [place] [address] 02/25/2015 08:34:47 02/25/2015 13:20:22 Inflammation of sacroiliac joint 33955947 Tietze's disease 85379238 Shoulder joint pain 976163563 [id number] Mora Reilly MD [facility] PA[facility]ICE [address] [place] [address] 05/29/2015 10:04:54 05/29/2015 12:03:12 Inflammation of sacroiliac joint 84793190 Tietze's disease 37912833 Shoulder joint pain 326091275 [id number] Mora Reilly MD [facility] PA[facility] [address] [place] [address] 08/13/2015 13:06:44 08/14/2015 09:45:21 Inflammation of sacroiliac joint 02322268 M46.1 Tietze's disease 3278279 9 M94.0 Shoulder joint pain 2679 63553 M25.512 [id number] Mora Reilly MD PAIN OFFICE [address] [place] [address] 12/30/2015 12:55:59 12/30/2015 13:53:52 Inflammation of sacroiliac joint 73824578 M46.1 [id number] Mora Reilly MD [facility] PAIN OFFICE [address] [facility] [place] [address] 06/02/2016 11:20:00 06/02/2016 15:51:02 Cervical spondylosis without myelopathy 711240867 M47.812 Muscle pain 81048074 M79 .1 Degenerati on of cervical intervertebral disc 68834026 M50.30 [id number] Mora Reilly MD [facility] PAIN [facility] [address] [place] [address] 06/17/2016 08:53:49 06/19/2016 11:01:16 Cervical spondylosis without myelopathy 687990988 M47.812 Muscle pain 15584115 M79 .1 Degenerati on of cervical intervertebral disc 36628083 M50.30 [id number] Mora Reilly MD [facility] PA[facility] [address] [place] [address] 07/01/2016 09:26:06 07/01/2016 13:27:19 Inflammation of sacroiliac joint 90822359 M46.1 Tietze's disease 3282013 9 M94.0 Shoulder joint pain 2679 49121 M25.512 [id number] Mora Reilly MD PAIN OFFICE [address] [place] [address] 07/30/2016 09:08:52 08/22/2016 11:46:05 Cervical spondylosis without myelopathy 136067348 M47.812 Muscle pain 86297580 M79 .1 Degenerati on of cervical intervertebral disc 31740662 M50.30 [id number] Mora Reilly MD PAIN OFFICE [address] [place] [address] 07/07/2017 08:16:05 07/07/2017 09:24:56 Lumbosacral radiculitis 31781849 M54.17 Spinal abram nosis of lumbar region 34026269 M48.06 Displaceme nt of lumbar intervertebral disc without myelopathy 12997126 M51.26 Inflammati on of sacroiliac joint 17525161 M46.1 [id number] Mora Reilly MD PAIN OFFICE [address] [place] [address] 07/27/2017 09:52:38 07/29/2017 14:32:39 Lumbosacral radiculitis 43788594 M54.17 Spinal abram nosis of lumbar region 68640023 M48.062 Displaceme nt of lumbar intervertebral disc without myelopathy 70487108 M51.26 Inflammati on of sacroiliac joint 87000194 M46.1 [id number] Mora Reilly MD [facility] PA[facility] [address] [place] [address] 08/29/2017 09:17:14 08/29/2017 10:31:46 Lumbosacral radiculitis 44860229 M54.17 Spinal abram nosis of lumbar region 69165263 M48.062 Displaceme nt of lumbar intervertebral disc without myelopathy 10173410 M51.26 Inflammati on of sacroiliac joint 28071393 M46.1 [id number] Mora Reilly MD PAIN OFFICE [address] [place] [address] 09/21/2017 11:43:42 09/22/2017 09:27:57 Lumbosacral radiculitis 65304069 M54.17 Spinal abram nosis of lumbar region 82427390 M48.062 Displaceme nt of lumbar intervertebral disc without myelopathy 60003794 M51.26 Inflammati on of sacroiliac joint 52365674 M46.1 [id number] Mora Reilly MD PAIN OFFICE [address] [place] [address] 02/28/2018 13:30:09 02/28/2018 15:59:37 Lumbosacral radiculitis 79123589 M54.17 Spinal abram nosis of lumbar region 90226345 M48.062 Displaceme nt of lumbar intervertebral disc without myelopathy 88555681 M51.26 Inflammati on of sacroiliac joint 62152610 M46.1 [id number] Mora Reilly MD PAIN OFFICE [address] [place] [address] 12/04/2018 09:17:20 12/04/2018 10:07:57 Lumbosacral radiculitis 08147086 M54.17 Spinal abram nosis of lumbar region 22925771 M48.062 Displaceme nt of lumbar intervertebral disc without myelopathy 29897634 M51.26 Inflammati on of sacroiliac joint 74998674 M46.1 [id number] Mora Reilly MD PAIN OFFICE [address] [place] [address] 12/19/2018 08:26:46 12/19/2018 10:59:08 Lumbosacral radiculitis 39782889 M54.17 Spinal abram nosis of lumbar region 39466975 M48.062 Displaceme nt of lumbar intervertebral disc without myelopathy 32636928 M51.26 Inflammati on of sacroiliac joint 32422049 M46.1 [id number] Mora Reilly MD [facility] PAIN OFF[facility] [address] [place] [address] 08/04/2020 09:52:18 08/04/2020 13:06:36 Displacement of lumbar intervertebral disc without myelopathy 36806470 M51.26 Lumbosacra l radiculitis 21221348 M54.17 Spinal abram nosis of lumbar region 61226543 M48.062 Inflammati on of sacroiliac joint 06809782 M46.1 [id number] Mora Reilly MD [facility] PAIN OFF[facility] [address] [place] [address] 09/10/2020 12:51:41 09/10/2020 13:26:05 Lumbosacral radiculitis 40747231 M54.17 Spinal abram nosis of lumbar region 90386218 M48.062 Displaceme nt of lumbar intervertebral disc without myelopathy 43081138 M51.26 Inflammati on of sacroiliac joint 44792347 M46.1 [id number] Mora Reilly MD [facility] PAIN OFFICE [address] [place] [address] 10/20/2020 09:03:15 10/20/2020 09:11:00 Displacement of lumbar intervertebral disc without myelopathy 38330355 M51.26 Lumbosacra l radiculitis 01359881 M54.17 Spinal abram nosis of lumbar region 04485242 M48.062 Inflammati on of sacroiliac joint 03196078 M46.1 Health Concerns Section Related Observation LastModified by Organization Detai ls LastModified Time None Recorded Concern Status LastModified by Organization Details LastModified Time None Recorded Advance Directives Directive None Recorded Payers Insurance Date Sequence Insurance Name Policy Number Policy Marie Covered Member ID Marie Member ID Guarantor Name 10/20/2020 1 [place] [facility] Yuli Duke [id number] Yuli Duke 10/20/2020 1 [facility] [id number] Yuli Duke [id number] Yuli Duke 10/20/2020 1 MEDICARE B-[place]: [facility] Yuli A Luishicheriette [id number] Yuli Duke OBGyn Episode No OBEpisode recorded.
--- OUTSIDE RECORDS SUMMARY | 2025-05-07 09:53 | XMS_ITS | Clinical Summary ---
Author Organization [facility] Address [address] [address] Phone Care Team Providers Care Director Of Assessing Name Role Phone Jose Garcia MD Primary Care Provider [phone]- [phone] Allergies Active Allergy Reactions Criticality Noted Date [...] MEDICARE PART A & B Care Teams Director Of Assessing Relationship Specialty Start Date End Date Jose Garcia MD [email or web address] PCP - General Internal Medicine 03/06/19 Additional Source Comments The information contained in this document represents components of the legal health record. It is not the complete legal health record.[facility]
== END 2025-05-07 09:26 | disposition home or self-care (01) ==
LOC: HO.XRAY 09:25
PROVIDERS: PCP Nurse Practitioner Family; Visit Provider Nurse Practitioner
DX: Z13.89 Encounter for screening for other disorder (principal)

== ENCOUNTER → 2025-05-28 09:55 | Outpatient (REF) | payer MEDICARE, MEDICAID, SELFPAY ==
--- NOTE | 2025-05-28 09:58 | CA_ITS ---
Transthoracic Echocardiogram Patient (Last, First, Middle): Yuli Duke, Gender: Female Date of : 1965 Age: 59 Procedure Date: 05/28/2025 Procedure Type: Transthoracic Echocardiogram Location: OP Height: 144.78 cm Weight: 55.34 kg BSA: 1.46 m2 Heart Rate: 79 bpm BP: 122 / 64 mmHg Core Winder: SB Referring MD: Srikanth Palomares [facility] Inventory Planner: Brian Johnson MD Symptoms: I10 - Essential (primary) hypertension,Cardiomegaly, I21.9 Acute myocardial infarction Study Quality: Adequate ECG Rhythm: Sinus Conclusions: - 1. Normal LV ejection fraction of 60 65% 2. Normal cardiac valvular Dopplers 3. Moderately elevated right ventricular systolic pressure 4. No gross pericardial effusion Findings Left Ventricle Normal left ventricular size, thickness, and systolic function. The visually estimated ejection fraction is between 60-65%. Spectral Doppler is indicative of a normal filling pattern. basal inferior wall appears to be hypokinetic Right Ventricle Normal right ventricular cavity size and systolic function. Atria Both atria are normal in size. There is no evidence of interatrial shunt. Aortic Valve Normal aortic valve structure and function. There is no aortic valve stenosis. There is no aortic valve regurgitation. Mitral Valve Normal mitral valve structure and function. There is mild mitral valve regurgitation. There is no mitral valve stenosis. Pulmonic Valve The pulmonic valve is likely normal. Tricuspid Valve There is mild tricuspid valve regurgitation. Normal right atrial pressure. Moderate pulmonary hypertension is present. Great Vessels All visible segments of the aorta are normal in size. The pulmonary artery was not well visualized. Venous The inferior vena cava is normal in size and collapses greater than 50% with inspiration. Pericardium/Pleural There is no evidence of pericardial effusion. Prior Study Comparison Changes noted compared to prior study dated: 03/02/2022. RV systolic pressure is increased Measurements 2D Linear Measurements IVSd: 0.76 0.6-0.9/0.6-1.0 cm LVIDd: 3.97 3.9-5.3/4.2-5.9 cm LVIDd Index: 2.72 2.4-3.2/2.2-3.1 cm/m2 LVIDs: 2.32 2.0-3.6 cm LVPWd: 0.64 0.7-1.1 cm LA Diam: 3.10 2.7-3.8/3.0-4.0 cm LAIDs Index: 2.12 1.5-2.3 cm/m2 LV Mass: 96.15 67-162/88-224 g LV Mass Index: 65.86 43-95/49-115 g/m2 LVOT Diam: 1.90 3.0+(-)1.3 cm 2D Systolic Function EF 4C: 64.40 >55% EF 2C: 64.70 >55% EF BiP: 64.10 >55% Mitral Valve MV Pk E: 1.02 MV PK A: 0.81 MV Decel Time: 189.00 E/A: 1.30 E'Lateral: 6.09 E'Medial: 6.20 E/E' Med: 16.50 E/E' Lat: 16.70 PHT: 55.00 MVA PHT: 4.00 Decel Ward: 5.40 Aortic Valve AoV Pk Joselo: 1.18 AoV Pk Grad: 6.00 MILAGROS: 2.57 LVOT LVOT Pk Joselo: 1.00 LVOT Mn Joselo: 0.65 LVOT VTI: 0.18 LVOT Pk Grad: 4.00 LVOT Mn Grad: 2.00 LVOT Diam: 1.90 LVOT Area: 2.84 Diastolic Function MV Pk E: 1.02 MV Pk A: 0.81 E/A: 1.30 E'Medial: 6.20 E/E' Med: 16.50 E' Laterial: 6.09 E/E' Lat: 16.70 Right Ventricle TAPSE (mm): 20.00 TVS' Joselo: 12.50 Tricuspid Valve TR Pk Joselo: 3.29 TR Pk Grad: 43.00 RA Press: 3.00 RVSP: 46.00 Great Vessels Aorta Sinus of Valsalva: 2.80 2.0-3.5 cm Ao Asc: 2.80 2.1-3.4 cm Pulmonary Veins Pulm Vein S/D 1.40 Pulmonary Valve PV Pk Joselo: 0.87 Peak PV Grad: 3.00 Updated in Other Vendor System with Status of Final Brian Johnson MD electronically signed on 05/28/2025 2:15:24 PM with status of Final
--- OUTSIDE RECORDS SUMMARY | 2025-05-28 11:04 | XMS_ITS | Clinical Summary ---
Author Organization [facility] Address [address] [address] Phone Care Team Providers Care Hospice Care Transitions Coordinator Name Role Phone Jose Garcia MD Primary Care Provider [phone]- [phone] Allergies Active Allergy Reactions Criticality Noted Date [...] MEDICARE PART A & B Care Teams Hospice Care Transitions Coordinator Relationship Specialty Start Date End Date Jose Garcia MD [email or web address] PCP - General Internal Medicine 03/06/19 Additional Source Comments The information contained in this document represents components of the legal health record. It is not the complete legal health record.[facility]
--- OUTSIDE RECORDS SUMMARY | 2025-05-28 11:04 | XMS_ITS | Clinical Summary ---
Author Organization [facility] Address [address] [place] [address] Phone Care Team Providers Care Coat Repair Inspector Name Role Phone MarianalbaroSrikanth NP Primary Care Provider Allergies No known active allergies Encounters Date Type Department Care Team Description 05/13/2025 7:10 PM EDT - 05/14/2025 10:06 AM EDT Emergency [facility] Emergency [address] [place] [address] Srikanth Cornejo MD Kokkinos, Erika, MD Gordon, Ruth, MD Breakthrough seizure (CMS/HCC V24, CMS/[facility] V28) (Primary Dx); Hypomagnesemia Discharge Disposition: Home or Self Care from Last 3 Months Social History Tobacco Use Types Packs/Day Years Used Date Smoking Tobacco: Never Smokeless Tobacco: Never Tobacco Cessation:Counseling Given: Not Answered Comments Unknown Sex and Gender Information Value Date Recorded Sex Assigned at Not on file Legal Sex Female 11:47 AM EST Gender Identity Not on file Sexual Orientation Not on file Obstetrics History Last Filed Vital Signs Vital Sign Reading Time Taken Comments Blood Pressure 122/72 05/14/2025 8:17 AM EDT Pulse 57 05/14/2025 8:17 AM EDT Temperature 36.7 C (98 F) 05/14/2025 3:58 AM EDT Respiratory Rate 14 05/14/2025 8:17 AM EDT Oxygen Saturation 95% 05/14/2025 8:17 AM EDT Inhaled Oxygen Concentration - - Weight 49 kg (108 lb) 05/13/2025 7:12 PM EDT Height 142.2 cm (4' 8 ) 05/13/2025 7:12 PM EDT Body Mass Index 24.21 05/13/2025 7:12 PM EDT Plan of Treatment Health Maintenance Due Date Last Done Comments Breast Cancer Screening 1965 Cervical Cancer Screening: Pap Smear 1985 Cholesterol Screening (Lipid Panel) 09/07/2022 Colorectal Cancer Screening: Colonoscopy 09/07/2022 HIV Screening 09/07/2022 Hepatitis C Screening 09/07/2022 Medicare Annual Wellness Visit 09/07/2022 Social Influencers of Health Screening 09/07/2022 COVID-19 Vaccine ( season) 2024 11/03/2021, 03/08/2021, 02/08/2021 Depression Screening 10/10/2024 Zoster Vaccines (2 of 2) 05/15/2025 03/20/2025 Influenza Vaccine (#1) 2025 , 10/12/2019, 06/15/2017, Additional history exists Hypertension/CHF/CAD Annual BMP Blood Test 05/13/2026 05/13/2025 DTaP,Tdap,and Td Vaccines (2 - Td or Tdap) 03/20/2035 03/20/2025 Pneumococcal Vaccine: 50+ Years Completed 03/20/2025 RSV Immunization Adult Patients Completed 03/20/2025 HIB Vaccines Aged Out No longer eligi [...] to complete this topic RSV Immunization Patients Under 20 months Aged Out No longer eligible based on patient's age to complete this topic Varicella Vaccines Aged Out No longer eligible based on patient's age to complete this topic Procedures Procedure Name Priority Date/Time Associated Diagnosis Comments TIGER TOP URINE TUBE Routine 05/14/2025 5:21 AM EDT YELLOW URINE NO ADDITIVE Routine 05/14/2025 5:21 AM EDT EXTRA TUBES Routine 05/14/2025 5:21 AM EDT URINALYSIS WITH REFLEX MICROSCOPIC STAT 05/14/2025 5:21 AM EDT URINALYSIS WITH REFLEX MICROSCOPIC STAT 05/14/2025 5:21 AM EDT VALPROIC ACID LEVEL, TOTAL AND FREE STAT 05/14/2025 3:[address] HEAD WO CONTRAST STAT 05/14/2025 2 :33 AM EDT XR CHEST 1 VIEW STAT 05/13/2025 9:34 PM EDT VALPROIC ACID LEVEL, TOTAL Add-On 05/13/2025 7:32 PM EDT CBC WITH AUTO DIFFERENTIAL STAT 05/13/2025 7:32 PM EDT PROLACTIN STAT 05/13/2025 7:32 PM EDT MAGNESIUM STAT 05/13/2025 7:32 PM EDT BASIC METABOLIC PANEL STAT 05/13/2025 7:32 PM EDT CBC AND DIFFERENTIAL STAT 05/13/2025 7:32 PM EDT from Last 3 Months Results * Urinalysis with reflex microscopic (05/14/2025 5:21 AM EDT) Specific [place] Urine 1.008 1.003 - 1.030 LAB URINALYSIS - AUTOMATED METHOD 05/14/2025 5:50 AM EDT [facility] pH, Urine 7.0 5.0 - 8.0 pH LAB URINALYSIS - AUTOMATED METHOD 05/14/2025 5:50 AM [facility] Leukocytes, Urine Negative Negative LAB URINALYSIS - AUTOMATED METHOD 05/14/2025 5:50 AM [facility] Nitrite, Urine Negative Negative LAB URINALYSIS - AUTOMATED METHOD 05/14/2025 5:50 AM [facility] Protein, Urine Negative <=Trace mg/dL LAB URINALYSIS - AUTOMATED METHOD 05/14/2025 5:50 AM [facility] Glucose, Urine Negative Negative mg/dL LAB URINALYSIS - AUTOMATED METHOD 05/14/2025 5:50 AM [facility] Ketones, Urine Negative Negative mg/dL LAB URINALYSIS - AUTOMATED METHOD 05/14/2025 5:50 AM [facility] Urobilinogen, Urine 0.2 0.2 - 1.0 mg/dL LAB URINALYSIS - AUTOMATED METHOD 05/14/2025 5:50 AM [facility] Bilirubin, Urine Negative Negative LAB URINALYSIS - AUTOMATED METHOD 05/14/2025 5:50 AM [facility] Blood, Urine Negative Negative LAB URINALYSIS - AUTOMATED METHOD 05/14/2025 5:50 AM [facility] Urine Urine specimen obtained by clean catch procedure / Unknown Non-blood Collection / Unknown 05/14/2025 5:21 AM EDT 05/14/2025 5:36 AM EDT us Srikanth Cornejo MD LAB URINE ORDERABLES Final Resul t [facility] [address] [place] [address], * [place] top urine tube (05/14/2025 5:21 AM EDT) Extra Tube Hold for add-ons. 05/14/2025 7:01 AM EDT [facility] Comment:Auto resulted. Urine Urine specimen obtained by clean catch procedure / Unknown 05/14/2025 5:21 AM EDT 05/14/2025 5:36 AM EDT Srikanth Cornejo MD LAB URINE ORDERABLES Final Resul t Performing Organization Address [facility] Co de Phone Number [facility] [address] [place] [address], [place] [phone] * Yellow urine no additive (05/14/2025 5:21 AM EDT) Extra Tube Hold for add-ons. 05/14/2025 7:01 AM EDT [facility] Comment:Auto resulted. Urine Urine specimen obtained by clean catch procedure / Unknown 05/14/2025 5:21 AM EDT 05/14/2025 5:36 AM EDT Srikanth Cornejo MD LAB URINE ORDERABLES Final Resul t Performing Organization Address [facility] de Phone Number [facility] [address] [place] [address], [place] [phone] * Valproic acid level, total and free (05/14/2025 3:06 AM EDT) Valproic Acid, Free 12.1 4.8 - 17.3 mg/L 05/18/2025 12:46 AM EDT [facility] Comment: Note: Non-linear drug binding properties result in the fraction of Free Valproic Acid increasing as total drug increases. The free fraction may range from 5% to 25% for the total drug range of 30-160 mg/L. Valproic Acid 75.1 50.0 - 100.0 mg/L 05/18/2025 12:46 AM EDT [facility] Comment: Test Performed by Vinicio Bangura, [facility], [address] [place] [address] Dirk Mayen M.D., Ph.D., Director of Laboratories , [place] [id number] Blood Venous blood specimen / Unknown Venipuncture / Unknown 05/14/2025 3:06 AM EDT 05/14/2025 3:13 AM EDT us Bettie Stoner MD LAB BLOOD ORDERABLES Final Res ult [facility] [address] [place] [address] * CT Head wo Contrast (05/14/2025 2:33 AM EDT) Anatomical Region Laterality Modality Head and Neck Computed Tomogra phy 05/14/2025 4:59 AM EDT Impressions 05/14/2025 4:59 AM EDT Diffuse hydrocephalus and parenchymal volume loss without visualized obstructing intraventricular mass. This document has been electronically signed by: Dakota Underwood MD on 05/14/2025 04:59:00 Narrative 05/14/2025 4:59 AM EDT INDICATION: seizures CT head without contrast Comparison: None provided Findings: Diffuse hydrocephalus and parenchymal volume loss without a visualized obstructing intraventricular mass. No stroke, midline shift, or acute hemorrhage. There is no sinus or mastoid fluid. The orbits are within normal limits. No skull fracture. Procedure Note Dakota Underwood MD - 05/14/2025 INDICATION: seizures CT head without contrast Comparison: None provided Findings: Diffuse hydrocephalus and parenchymal volume loss without a visualized obstructing intraventricular mass. No stroke, midline shift, or acute hemorrhage. There is no sinus or mastoid fluid. The orbits are within normal limits. No skull fracture. IMPRESSION: Diffuse hydrocephalus and parenchymal volume loss without visualized obstructing intraventricular mass. This document has been electronically signed by: Dakota Underwood MD on 05/14/2025 04:59:00 us Srikanth Cornejo MD IMG CT PROCEDURES Final Result * XR Chest 1 View (05/13/2025 9:34 PM EDT) Anatomical Region Laterality Modality Body Radiographic Dafne ging 05/14/2025 7:19 AM EDT Impressions 05/14/2025 7:21 AM EDT I suspect some mild bibasilar atelectasis. I doubt acute pneumonia and there is no evidence of alveolar edema -------- FINAL REPORT -------- Dictated By: Adam Kim Dictated Date: 05/14/2025 07:19 ET Assigned Physician: Adam Kim Reviewed and Electronically Signed By: Adam Kim Signed Date: 05/14/2025 07:21 ET Workstation ID: [id number] Transcribed By: Self Edit Transcribed Date: 05/14/2025 07:19 ET Narrative 05/14/2025 7:21 AM EDT EXAMINATION: CHEST CLINICAL INFORMATION: Weakness COMPARISON: None. TECHNIQUE: Portable frontal sitting view of the chest FINDINGS: Devices overlie the patient. The extreme apex is excluded. There is rotation to the left. There is calcification of the aorta. The cardiac size is top normal. There is no large hilar mass. There is no edema. There are a few linear opacities at the bases medially. No consolidation in the mid or upper lung zones. There is no pneumothorax. There is osteopenia and I suspect some volume loss of L2 Procedure Note Adam Kim MD - 05/14/2025 EXAMINATION: CHEST CLINICAL INFORMATION: Weakness COMPARISON: None. TECHNIQUE: Portable frontal sitting view of the chest FINDINGS: Devices overlie the patient. The extreme apex is excluded. There isrotation to the left. There is calcification of the aorta. The cardiac size is top normal. Thereis no large hilar mass. There is no edema. There are a few linearopacities at the bases medially. No consolidation in the mid or upper lungzones. There is no pneumothorax. There is osteopenia and I suspect some volume loss of L2 IMPRESSION: I suspect some mild bibasilar atelectasis. I doubt acute pneumonia andthere is no evidence of alveolar edema -------- FINAL REPORT -------- Dictated By: Adam Kim Dictated Date: 05/14/2025 07:19 ET Assigned Physician: Adam Kim Reviewed and Electronically Signed By: Adam Kim Signed Date: 05/14/2025 07:21 ET Workstation ID: [id number] Transcribed By: Self Edit Transcribed Date: 05/14/2025 07:19 ET Srikanth Cornejo MD IMG XR PROCEDURES Final Result * (ABNORMAL) CBC auto differential (05/13/2025 7:32 PM EDT) WBC 4.9 4.8 - 10.8 K/mcL LAB HEMETOLOGY METHOD 05/13/2025 7:57 PM EDT [facility] RBC 4.20 3.80 - 4.80 M/mcL LAB HEMETOLOGY METHOD 05/13/2025 7:57 PM EDT [facility] Hemoglobin 12.4 11.5 - 16.0 g/dL LAB HEMETOLOGY METHOD 05/13/2025 7:57 PM EDT [facility] Hematocrit 39.6 35.0 - 47.0 % LAB HEMETOLOGY METHOD 05/13/2025 7:57 PM EDT [facility] MCV 94.7 79.0 - 98.0 FL LAB HEMETOLOGY METHOD 05/13/2025 7:57 PM EDT [facility] MCH 29.7 27.0 - 32.0 pcg LAB HEMETOLOGY METHOD 05/13/2025 7:57 PM EDT [facility] MCHC 31.3(L) 32.0 - 37.0 g/dL LAB HEMETOLOGY METHOD 05/13/2025 7:57 PM EDT [facility] RDW 15.0 11.0 - 15.0 % LAB HEMETOLOGY METHOD 05/13/2025 7:57 PM EDT [facility] Platelets 249 130 - 400 K/mcL LAB HEMETOLOGY METHOD 05/13/2025 7:57 PM EDT [facility] MPV 10.2 7.0 - 11.0 FL LAB HEMETOLOGY METHOD 05/13/2025 7:[facility] NRBC 0.0 <1.0 % LAB HEMETOLOGY METHOD 05/13/2025 7:57 PM [facility] NRBC Absolute 0.00 <0.10 K/mcL LAB HEMETOLOGY METHOD 05/13/2025 7:57 PM [facility] Neutrophils Relative 39.5 % LAB HEMETOLOGY METHOD 05/13/2025 7:57 PM [facility] Lymphocytes Relative 44.1 % LAB HEMETOLOGY METHOD 05/13/2025 7:57 PM [facility] Monocytes Relative 11.5 % LAB HEMETOLOGY METHOD 05/13/2025 7:57 PM [facility] Eosinophils Relative 3.5 % LAB HEMETOLOGY METHOD 05/13/2025 7:57 PM [facility] Basophils Relative 0.8 % LAB HEMETOLOGY METHOD 05/13/2025 7:57 PM [facility] Immature Granulocytes Relative 0.6 % LAB HEMETOLOGY METHOD 05/13/2025 7:57 PM [facility] Neutrophils Absolute 1.93 1.50 - 7.00 K/mcL LAB HEMETOLOGY METHOD 05/13/2025 7:57 PM [facility] Lymphocytes Absolute 2.15 1.00 - 5.00 K/mcL LAB HEMETOLOGY METHOD 05/13/2025 7:57 PM [facility] Monocytes Absolute 0.56 0.20 - 1.00 K/mcL LAB HEMETOLOGY METHOD 05/13/2025 7:57 PM [facility] Eosinophils Absolute 0.17 0.00 - 0.50 K/mcL LAB HEMETOLOGY METHOD 05/13/2025 7:57 PM [facility] Basophils Absolute 0.04 0.00 - 0.20 K/[facility] LAB HEMETOLOGY METHOD 05/13/2025 7:57 PM EDT [facility] Immature Granulocytes Absolute 0.03 0.00 - 0.03 K/[facility] LAB HEMETOLOGY METHOD 05/13/2025 7:57 PM EDT [facility] Blood Venous blood specimen / Unknown Venipuncture / Unknown 05/13/2025 7:32 PM EDT 05/13/2025 7:53 PM EDT Srikanth Cornejo MD LAB BLOOD ORDERABLES Final Resul t Performing Organization Address [facility] Co de Phone Number [facility] [address] [place] [address], [place] [phone] * Prolactin (05/13/2025 7:32 PM EDT) Prolactin 79.00 See Comment ng/mL LAB CHEMISTRY METHOD 05/13/2025 8:27 PM EDT [facility] Comment: Prolactin Reference Ranges (ng/mL) Non 2.2 - 30.3 8.1 - 347.6 Postmenopausal 0.7 - 31.5 Blood Venous blood specimen / Unknown Venipuncture / Unknown 05/13/2025 7:32 PM EDT 05/13/2025 7:53 PM EDT us Srikanth Cornejo MD LAB BLOOD ORDERABLES Final Resul t Performing Organization Address City/[facility]/ZIP Co de Phone Number [facility] [address] [place] [address], [place] [phone] * (ABNORMAL) Magnesium (05/13/2025 7:32 PM EDT) Magnesium 1.7(L) 1.9 - 2.6 mg/dL LAB CHEMISTRY METHOD 05/13/2025 8:23 PM EDT [facility] Blood Venous blood specimen / Unknown Venipuncture / Unknown 05/13/2025 7:32 PM EDT 05/13/2025 7:53 PM EDT us Srikanth Cornejo MD LAB BLOOD ORDERABLES Final Resul t Performing Organization Address City/[facility]/ZIP Co de Phone Number [facility] [address] [place] [address], [place] [phone] * Valproic acid level, total (05/13/2025 7:32 PM EDT) Pathologist [facility] Valproic Acid, Total 95 50 - 100 mcg/mL LAB CHEMISTRY METHOD 05/14/2025 9:04 AM EDT [facility] Blood Venous blood specimen / Unknown Venipuncture / Unknown 05/13/2025 7:32 PM EDT 05/13/2025 7:53 PM EDT us Bettie Stoner MD LAB BLOOD ORDERABLES Final Res ult Performing Organization Address City/[facility]/ZIP Co de Phone Number [facility] [address] [place] [address], [place] [phone] * Basic metabolic panel (05/13/2025 7:32 PM EDT) [facility] Sodium 137 133 - 145 mmol/L LAB CHEMISTRY METHOD 05/13/2025 8:23 PM EDT [facility] Potassium 4.0 3.5 - 5.5 mmol/L LAB CHEMISTRY METHOD 05/13/2025 8:23 PM EDT [facility] Chloride 100 96 - 110 mmol/L LAB CHEMISTRY METHOD 05/13/2025 8:23 PM EDT [facility] CO2 30 21 - 32 mmol/L LAB CHEMISTRY METHOD 05/13/2025 8:23 PM EDT [facility] Anion Gap 7 3 - 11 LAB CHEMISTRY METHOD 05/13/2025 8:23 PM EDT [facility] Glucose 88 70 - 100 mg/dL LAB CHEMISTRY METHOD 05/13/2025 8:23 PM EDT [facility] BUN 7 5 - 25 mg/dL LAB CHEMISTRY METHOD 05/13/2025 8:23 PM EDT [facility] Creatinine 0.72 0.50 - 1.10 mg/dL LAB CHEMISTRY METHOD 05/13/2025 8:23 PM EDT [facility] eGFR 96 >=60 mL/min/1. 73m2 LAB CHEMISTRY METHOD 05/13/2025 8:23 PM EDT [facility] Comment:Calculation based on the Chronic Kidney Disease Epidemiology Collaboration (CKD-EPI) equation refit without adjustment for race. 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
--- OUTSIDE RECORDS SUMMARY | 2025-05-28 11:04 | XMS_ITS | Continuity of Care Document ---
Author Organization [facility] Address [address] [place] [address] Phone [phone] Social History Type Date Description Comments Sex Female Sex Unknown Medical Devices Description No Information Available Encounters Description No Information Available Assessments Description No Information Available Plan of Treatment No Information Available Functional Status Description No Information Available Mental Status Description No Information Available Referrals Description No Information Available
== END ==
LOC: HO.CARD 09:55
PROVIDERS: PCP Nurse Practitioner Family; Visit Provider Nurse Practitioner Family
DX: I10 Essential (primary) hypertension (principal); I51.7 Cardiomegaly; I21.9 Acute myocardial infarction, unspecified
CPT/HCPCS: 93306

== ENCOUNTER → 2025-05-28 09:58 | Outpatient (BNV) | payer MEDICARE, MEDICAID, SELFPAY | PROVIDERS: PCP Nurse Practitioner Family; Visit Provider Internal Medicine Cardiovascular Disease | DX: I27.20 Pulmonary hypertension, unspecified (principal); I34.0 Nonrheumatic mitral (valve) insufficiency; I36.1 Nonrheumatic tricuspid (valve) insufficiency | CPT/HCPCS: 93306 ==

== ENCOUNTER 2025-06-14 10:43 | Outpatient (REF) | payer MEDICARE, MEDICAID, SELFPAY ==
--- NOTE | ~2025-06-14 | XR_ITS ---
EXAMINATION: XR CHEST CLINICAL INFORMATION: R05.9 - Cough, unspecified COMPARISON: October 21, 2024. TECHNIQUE: 2 views of the chest were obtained. FINDINGS: Hyperinflated lungs. Pulmonary reticular pattern. No gross consolidation pleural effusion or pneumothorax. Cardiomediastinal silhouette size is normal. Calcified plaque thoracic aortic arch. Multilevel spondylosis and scoliosis, thoracolumbar spine. Osteopenia versus osteoporosis. XR/XR chest 2V IMPRESSION: Chronic interstitial lung disease suggesting COPD emphysematous type changes. No acute airspace disease. Atherosclerosis, aorta. Scoliosis and spondylosis, thoracolumbar spine. Osteopenia versus osteoporosis. Electronically signed by: Mathew Hay MD 06/14/2025 01:46 PM EDT
== END 2025-06-14 10:44 | disposition home or self-care (01) ==
LOC: HO.HMGCX 10:43
PROVIDERS: PCP Nurse Practitioner Family; Referring Provider Nurse Practitioner Family; Visit Provider Nurse Practitioner Family
DX: J44.9 Chronic obstructive pulmonary disease, unspecified (principal); R91.8 Other nonspecific abnormal finding of lung field; R40.0 Somnolence; R05.9 Cough, unspecified; F17.210 Nicotine dependence, cigarettes, uncomplicated
CPT/HCPCS: 71046; 99212

== ENCOUNTER 2025-06-14 10:43 | Outpatient (AMB) | payer MEDICARE, MEDICAID, SELFPAY ==
--- NOTE | 2025-06-14 10:45 | A.OFFVIS_ITS ---
Vital Signs 06/14/25 10:46 Height 4 ft 8 in Weight 112 lb BMI 25.1 BP 102/60 Blood Pressure Location Rt brachial Position Sitting Pulse 79 Pulse Source Pulse Oximeter Pulse Oximetry (%) 90 L Oxygen Delivery Method Room Air Intake Visit Reasons: COPD Allergies latex (LATEX) Allergy (Intermediate, Verified 06/14/25 10:50) RASH morphine (MORPHINE) Allergy (Intermediate, Verified 06/14/25 10:50) SWELLING alendronate sodium (From FOSAMAX) Allergy (Unknown, Verified 06/14/25 10:50) PER H+P levetiracetam (From KEPPRA) Adverse Reaction (Intermediate, Verified 06/14/25 10:50) DICKENS phenytoin (From DILANTIN) Adverse Reaction (Intermediate, Verified 06/14/25 10:50) CANT FUNCTION HPI HPI COPD: Details: Yuli is 59 year old female, current 30 pack year smoker, with underlying COPD, cardiomegaly, h/o OH, HTN, seziure disorder and GERD. She was referred by PCP for pulmonary evaluation. The patient has a history of chronic obstructive pulmonary disease, which was diagnosed in 2014 as severe. She has been using Arnuity however feels suboptimal effect. The patient reports occasional chest c ongestion and clear to yellow sputum production, but denies fever, chills, or chest tightness. She also reports dyspnea and wheezing. Denies prior h/o asthma or recurrent URI. The patient also has a history of sleep apnea, with a sleep study conducted over five years ago indicating moderate to severe obstructive events. She discontinued CPAP therapy due to issues with mask fit and has experienced persistent daytime fatigue, often falling asleep during activities such as bingo. The patient denies significant weight changes since the initial diagnosis and is interested in repeat study. Denies any occupational exposures. Reports significant family history of COPD/emphysema. Of note, patient was a part of the lung screening program, last LDCT 10/2023 RADS2 however lost to follow up. [facility] Medical History (Updated 06/14/25 @ 17:14 by Kimmy Mendoza NP) Weakness Urinary incontinence Epigastric pain Physical deconditioning Hypomagnesemia Abdominal pain Pleuritic pain Bilateral hip pain Bilateral knee pain Esophageal stricture Screening for cervical cancer Screening for colon cancer Pain in right leg Swelling of right lower extremity Breast cancer screening, high risk patient Edema Hypoglycemia Tremor Cerebral microvascular disease Hx of hiatal hernia Tubular adenoma of colon On beta matty at home Nicotine dependence, unspecified, uncomplicated Lumbosacral pain Lumbar stenosis Lumbar radiculitis Multiple pulmonary nodules COPD (chronic obstructive pulmonary disease) Osteoporosis Hypothyroid Depression Hyperlipidemia Hypertension Myocardial infarct CAD (coronary artery disease) Intracranial arachnoid cyst Cerebral atrophy Seizure Surgical History Hx of local excision of skin lesion History of foot surgery (~2013) History of tubal ligation History of heart artery stent (~2004) History of colonoscopy (~2018) History of appendectomy S/P dilatation of esophageal stricture (~2020) History of [place] fundoplication (~2019) History of esophagogastroduodenoscopy (EGD) (~2020) Family History Father Blood clots in brain Diabetes Polio Mother Breast cancer Hiatal hernia Sister Cancer Brother Myocardial infarction Family/Other Throat cancer Stomach cancer Paternal Grandmother Cancer Social History Household Members: Other Housing: Assisted Living Facility Housing Other:: Independent Living @ [facility] Are you a primary home care nurse to a significant other at home: No Alcohol intake: former Comment: Quit ~2006 Patient Tobacco Use Status: Current everyday Tobacco user Tobacco use type: Cigarette Cigarette Packs Per Day: 0.5 Cigarettes Per Day: 10.0 Years Smoked: 42 e-Cigarette/Vaping Use: Never Used Second Hand Smoke Exposure: No Substance Use Type: Crack/Cocaine service: No Current occupational status: disabled Cognitive needs: Yes Hearing needs: Yes Vision needs: Yes Review of Systems Const Denies chills, Denies excessive sweating, Denies fever(s), Denies headache(s) and Denies night sweats Eyes Denies dry eyes, Denies irritation and Denies itchy eyes ENT Reports Normal hearing present, Denies headache(s), Denies nasal congestion, Denies nasal discharge, Denies post nasal drip and Denies sore throat Card Denies chest pain, Denies chest pain at rest, Denies chest pain with activity, Denies claudication, Denies leg edema, Denies orthopnea and Denies paroxysmal nocturnal dyspnea Resp Denies excessive phlegm production, Denies pain on inspiration, Denies pain with cough and Denies stridor Musc Denies myalgias Neuro Reports Normal hearing present and Denies headache(s) Endo Denies excessive sweating Chris/Lymph Denies lymphadenopathy Aller/Immun Denies itchy eyes and Denies seasonal rhinorrhea Physical Exam Vital Signs: Last Vital Signs Pulse 79 06/14/25 10:46 BP 102/60 06/14/25 10:46 Pulse Ox 90 L 06/14/25 10:46 Oxygen Delivery Method Room Air 06/14/25 10:46 BMI result Body Mass Index 25.1 Const General: cooperative, comfortable, no acute distress and alert Orientation/consciousness: patient oriented x3 HEENT Head: Yes normal to inspection, Yes normocephalic and Yes atraumatic Ears: hearing grossly normal bilaterally and external ears normal Eyes General: appearance normal, both eyes and all related structures Eyelids: Yes eyelids normal Sclerae: sclerae normal EOM: EOMs intact bilaterally Neck Neck: Yes normal visual inspection and Yes no lymphadenopathy Lymphatic: no lymphadenopathy noted Chest Chest palpation & inspection: normal inspection of the chest Resp Other: inspiratory crackles of RLL Effort & Inspection: normal respiratory effort, able to speak in complete sentences, no audible wheezes, no cough, no stridor, not tachypneic, no tripod positioning and no use of accessory muscles Cardio Jugular venous distension: no JVD Rate: regular rate Rhythm: regular rhythm Skin Other: warm, dry General skin exam: no rashes or lesions noted Neuro General: patient oriented x3 Cranial nerves: Yes Normal hearing present Cognition (Neuro): normal cognition Gait exam (Neuro): Normal gait present Extrem General: Yes normal to inspection, Yes capillary refill normal, Yes no clubbing, cyanosis or edema and Yes no pedal edema Psych Appearance: grossly normal and well kempt Speech and movement: Normal speech and movement present and Clear speech present Affect: normal affect Attitude: cooperative Thought process: Normal thought process present Thought content: Normal thought content present Insight: Good insight present (Psych) Judgement: Good judgement present (Psych) Assessment & Plan Assessment & Plan (1) COPD (chronic obstructive pulmonary disease): Code(s): J44.9 - Chronic obstructive pulmonary disease, unspecified Category: Medical (2) Multiple pulmonary nodules: Code(s): R91.8 - Other nonspecific abnormal finding of lung field Category: Medical (3) Cough: Code(s): R05.9 - Cough, unspecified Category: Medical (4) Daytime somnolence: Code(s): R40.0 - Somnolence Category: Medical Plan Discussed with the patient the importance of managing her COPD with a more comprehensive inhaler, will send Trelegy and send for PFT. Reviewed the need for a chest x-ray to rule out pneumonia which she was agreeable to obtain today. We also talked about the benefits of a repeat sleep study to evaluate her sleep apnea and the potential need for CPAP therapy. Will send for home sleep study. Emphasized the significance of smoking cessation to prevent further progression of emphysema and encouraged her continued participation in the lung cancer screening program. Will message coordinator to inform her patient is interested in LDCT. Upon arrival to room patient 90% on room air, discussed importance of a 6MWT however patient declined. Discussed adverse effect of hypoxia, patient will consider 6MWT at next visit. questions were answered and patient is in agreement of plan. Will follow up in 4-6 weeks or sooner if needed. Orders: Orders XR chest 2V Today R05.9 - Cough, unspecified PFT pulmonary function test Today J44.9 - Chronic obstructive pulmonary disease, unspecified RT home sleep study Today R40.0 - Somnolence Medications: New dcnvgfkyztx-smhguqswb-amzkpogn 200-62.5-25 mcg (Trelegy Ellipta) 1 inh inhalation DAILY 60 ea 6RF Coding Level of Care Code New Pt Level 4 (11964) Complex EM visit Add On G2211 Diagnoses COPD (chronic obstructive pulmonary disease) J44.9 Multiple pulmonary nodules R91.8 Cough R05.9 Daytime somnolence R40.0
[2025-06-14 10:46] VITALS: BP 102/60; PULSE 79; O2SAT 90; BMI 25.1
--- OUTSIDE RECORDS SUMMARY | 2025-06-14 11:45 | XMS_ITS | Clinical Summary ---
Author Organization [facility] Address [address] [place] [address] Phone Care Team Providers Care Transfer Station Attendant Name Role Phone MarianalbaroSrikanth NP Primary Care Provider Allergies No known active allergies Encounters Date Type Department Care Team Description 05/13/2025 7:10 PM EDT - 05/14/2025 10:06 AM EDT Emergency [facility] Emergency [address] [place] [address] Srikanth Cornejo MD Kokkinos, Erika, MD Gordon, Ruth, MD Breakthrough seizure (CMS/HCC V24, CMS/[facility] V28) (Primary Dx); Hypomagnesemia Discharge Disposition: Home [...] 09/07/2022 Social Influencers of Health Screening 09/07/2022 Depression Screening 10/10/2024 Zoster Vaccines (2 of 2) 05/15/2025 03/20/2025 COVID-19 Vaccine (4 - season) 2025 11/03/2021, 03/08/2021, 02/08/2021 Influenza Vaccine (#1) 2025 , 10/12/2019, 06/15/2017, [...] reflex microscopic (05/14/2025 5:21 AM EDT) Specific [place] Urine 1.008 1.003 - 1.030 LAB URINALYSIS - AUTOMATED METHOD 05/14/2025 5:50 AM EDT [facility] pH, Urine 7.0 5.0 - 8.0 pH LAB URINALYSIS - AUTOMATED METHOD 05/14/2025 5:50 AM [facility] Leukocytes, Urine Negative Negative LAB URINALYSIS - AUTOMATED METHOD 05/14/2025 5:50 AM [facility] Nitrite, Urine Negative Negative LAB URINALYSIS - AUTOMATED METHOD 05/14/2025 5:50 AM [facility] Protein, Urine Negative <=Trace mg/dL LAB URINALYSIS - AUTOMATED METHOD 05/14/2025 5:50 AM [facility] Glucose, Urine Negative Negative mg/dL LAB URINALYSIS - AUTOMATED METHOD 05/14/2025 5:50 AM [facility] Ketones, Urine Negative Negative mg/dL LAB URINALYSIS - AUTOMATED METHOD 05/14/2025 5:50 AM [facility] Urobilinogen, Urine 0.2 0.2 - 1.0 mg/dL LAB URINALYSIS - AUTOMATED METHOD 05/14/2025 5:50 AM [facility] Bilirubin, Urine Negative Negative LAB URINALYSIS - AUTOMATED METHOD 05/14/2025 5:50 AM [facility] Blood, Urine Negative Negative LAB URINALYSIS - AUTOMATED METHOD 05/14/2025 5:50 AM [facility] Urine Urine specimen obtained by clean catch procedure / Unknown Non-blood Collection / Unknown 05/14/2025 5:21 AM EDT 05/14/2025 5:36 AM EDT us Srikanth Cornejo MD LAB URINE ORDERABLES Final Resul t [facility] [address] [place] [address], * [place] top urine tube (05/14/2025 5:21 AM EDT) Extra Tube Hold for add-ons. 05/14/2025 7:01 AM EDT [facility] Comment:Auto resulted. Urine Urine specimen obtained by clean catch procedure / Unknown 05/14/2025 5:21 AM EDT 05/14/2025 5:36 AM EDT Srikanth Cornejo MD LAB URINE ORDERABLES Final Resul t Performing Organization Address [facility] Co de Phone Number [facility] [address] [place] [address], [place] [phone] * Yellow urine no additive (05/14/2025 5:21 AM EDT) Extra Tube Hold for add-ons. 05/14/2025 7:01 AM EDT [facility] Comment:Auto resulted. Urine Urine specimen obtained by clean catch procedure / Unknown 05/14/2025 5:21 AM EDT 05/14/2025 5:36 AM EDT Srikanth Cornejo MD LAB URINE ORDERABLES Final Resul t Performing Organization Address [facility] de Phone Number [facility] [address] [place] [address], [place] [phone] * Valproic acid level, total and free [...] LAB Comment: Test Performed by Vinicio Bangura, [employer] [facility], [address] [place] [address] Dirk Mayen M.D., Ph.D., Director of Laboratories , [place] [id number] Blood Venous blood specimen / Unknown Venipuncture / Unknown 05/14/2025 3:06 AM EDT 05/14/2025 3:13 AM EDT us Bettie Stoner MD LAB BLOOD ORDERABLES Final Res ult ISABEL WHITE [address] [place] [address] * CT Head wo Contrast [...] EDT) Anatomical Region Laterality Modality Body Radiographic Danfe ging 05/14/2025 7:19 AM EDT Impressions 05/14/2025 7:21 AM EDT I suspect some mild bibasilar atelectasis. I doubt acute pneumonia and there is no evidence of alveolar edema -------- FINAL REPORT -------- Dictated By: Adam Kim Dictated Date: 05/14/2025 07:19 ET Assigned Physician: Adam Kim Reviewed and Electronically Signed By: Adam Kim Signed Date: 05/14/2025 07:21 ET Workstation ID: [id number] Transcribed By: Self Edit Transcribed Date: 05/14/2025 [...] Signed Date: 05/14/2025 07:21 ET Workstation ID: [id number] Transcribed By: Self Edit Transcribed Date: 05/14/2025 07:19 ET Srikanth Cornejo MD IMG XR PROCEDURES Final Result * (ABNORMAL) CBC auto differential (05/13/2025 7:32 PM EDT) WBC 4.9 4.8 - 10.8 K/mcL LAB HEMETOLOGY METHOD 05/13/2025 7:57 PM EDT [facility] RBC 4.20 3.80 - 4.80 M/mcL LAB HEMETOLOGY METHOD 05/13/2025 7:57 PM EDT [facility] Hemoglobin 12.4 11.5 - 16.0 g/dL LAB HEMETOLOGY METHOD 05/13/2025 7:57 PM EDT [facility] Hematocrit 39.6 35.0 - 47.0 % LAB HEMETOLOGY METHOD 05/13/2025 7:57 PM EDT [facility] MCV 94.7 79.0 - 98.0 FL LAB HEMETOLOGY METHOD 05/13/2025 7:57 PM EDT [facility] MCH 29.7 27.0 - 32.0 pcg LAB HEMETOLOGY METHOD 05/13/2025 7:57 PM EDT [facility] MCHC 31.3(L) 32.0 - 37.0 g/dL LAB HEMETOLOGY METHOD 05/13/2025 7:57 PM EDT [facility] RDW 15.0 11.0 - 15.0 % LAB HEMETOLOGY METHOD 05/13/2025 7:57 PM EDT [facility] Platelets 249 130 - 400 K/mcL LAB HEMETOLOGY METHOD 05/13/2025 7:57 PM EDT [facility] MPV 10.2 7.0 - 11.0 FL LAB HEMETOLOGY METHOD 05/13[facility]25 7[facility] NRBC 0.0 <1.0 % LAB HEMETOLOGY METHOD 05/13/2025 7:57 PM [facility] NRBC Absolute 0.00 <0.10 K/mcL LAB HEMETOLOGY METHOD 05/13/2025 7:57 PM [facility] Neutrophils Relative 39.5 % LAB HEMETOLOGY METHOD 05/13/2025 7:57 PM [facility] Lymphocytes Relative 44.1 % LAB HEMETOLOGY METHOD 05/13/2025 7:57 PM [facility] Monocytes Relative 11.5 % LAB HEMETOLOGY METHOD 05/13/2025 7:57 PM [facility] Eosinophils Relative 3.5 % LAB HEMETOLOGY METHOD 05/13/2025 7:57 PM [facility] Basophils Relative 0.8 % LAB HEMETOLOGY METHOD 05/13/2025 7:57 PM [facility] Immature Granulocytes Relative 0.6 % LAB HEMETOLOGY METHOD 05/13/2025 7:57 PM [facility] Neutrophils Absolute 1.93 1.50 - 7.00 K/mcL LAB HEMETOLOGY METHOD 05/13/2025 7:57 PM [facility] Lymphocytes Absolute 2.15 1.00 - 5.00 K/mcL LAB HEMETOLOGY METHOD 05/13/2025 7:57 PM [facility] Monocytes Absolute 0.56 0.20 - 1.00 K/mcL LAB HEMETOLOGY METHOD 05/13/2025 7:57 PM [facility] Eosinophils Absolute 0.17 0.00 - 0.50 K/mcL LAB HEMETOLOGY METHOD 05/13/2025 7:57 PM [facility] Basophils Absolute 0.04 0.00 - 0.20 K/[facility] LAB HEMETOLOGY METHOD 05/13/2025 7:57 PM EDT [facility] Immature Granulocytes Absolute 0.03 0.00 - 0.03 K/[facility] LAB HEMETOLOGY METHOD 05/13/2025 7:57 PM EDT [facility] Blood Venous blood specimen / Unknown Venipuncture / Unknown 05/13/2025 7:32 PM EDT 05/13/2025 7:53 PM EDT Srikanth Cornejo MD LAB BLOOD ORDERABLES Final Resul t Performing Organization Address [facility] Co de Phone Number [facility] [address] [place] [address], [place] [phone] * Prolactin (05/13/2025 7:32 PM EDT) Prolactin 79.00 See Comment ng/mL LAB CHEMISTRY METHOD 05/13/2025 8:27 PM EDT [facility] Comment: Prolactin Reference Ranges (ng/mL) Non 2.2 - 30.3 8.1 - 347.6 Postmenopausal 0.7 - 31.5 Blood Venous blood specimen / Unknown Venipuncture / Unknown 05/13/2025 7:32 PM EDT 05/13/2025 7:53 PM EDT us Srikanth Cornejo MD LAB BLOOD ORDERABLES Final Resul t Performing Organization Address [facility]ZIP Co de Phone Number [facility] [address] [place] [address], [place] [phone] * (ABNORMAL) Magnesium (05/13/2025 7:32 PM EDT) Magnesium 1.7(L) 1.9 - 2.6 mg/dL LAB CHEMISTRY METHOD 05/13/2025 8:23 PM EDT [facility] Blood Venous blood specimen / Unknown Venipuncture / Unknown 05/13/2025 7:32 PM EDT 05/13/2025 7:53 PM EDT us Srikanth Cornejo MD LAB BLOOD ORDERABLES Final Resul t Performing Organization Address [facility]ZIP Co de Phone Number [facility] [address] [place] [address], [place] [phone] * Valproic acid level, total (05/13/2025 7:32 PM EDT) Pathologist [facility] Valproic Acid, Total 95 50 - 100 mcg/mL LAB CHEMISTRY METHOD 05/14/2025 9:04 AM EDT [facility] Blood Venous blood specimen / Unknown Venipuncture / Unknown 05/13/2025 7:32 PM EDT 05/13/2025 7:53 PM EDT us Bettie Stoner MD LAB BLOOD ORDERABLES Final Res ult Performing Organization Address [facility]/ZIP Co de Phone Number [facility] [address] [place] [address], [place] [phone] * Basic metabolic panel (05/13/2025 7:32 PM EDT) [facility] Sodium 137 133 - 145 mmol/L LAB CHEMISTRY METHOD 05/13/2025 8:23 PM EDT [facility] Potassium 4.0 3.5 - 5.5 mmol/L LAB CHEMISTRY METHOD 05/13/2025 8:23 PM EDT [facility] Chloride 100 96 - 110 mmol/L LAB CHEMISTRY METHOD 05/13/2025 8:23 PM EDT [facility] CO2 30 21 - 32 mmol/L LAB CHEMISTRY METHOD 05/13/2025 8:23 PM EDT [facility] Anion Gap 7 3 - 11 LAB CHEMISTRY METHOD 05/13/2025 8:23 PM EDT [facility] Glucose 88 70 - 100 mg/dL LAB CHEMISTRY METHOD 05/13/2025 8:23 PM EDT [facility] BUN 7 5 - 25 mg/dL LAB CHEMISTRY METHOD 05/13/2025 8:23 PM EDT [facility] Creatinine 0.72 0.50 - 1.10 mg/dL LAB CHEMISTRY METHOD 05/13/2025 8:23 PM EDT [facility] eGFR 96 >=60 mL/min/1. 73m2 LAB CHEMISTRY METHOD 05/13/2025 8:23 PM EDT [facility] Comment:Calculation based on the Chronic Kidney Disease Epidemiology Collaboration (CKD-EPI) equation refit without adjustment for race. 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
--- OUTSIDE RECORDS SUMMARY | 2025-06-14 11:45 | XMS_ITS | Encounter Summary ---
Author Organization [facility] Address [address] [place] [phone] Phone Care Team Providers Care Door Trimmer Name Role Phone Jose Garcia MD Primary Care Provider [phone]- [phone] Encounter Details Date Type Department Care Team (Late st Contact Info) Description 02/21/2020 Ancillary Orders [facility],Outside Imaging [address] [place] [address] System, Provider Not In, [facility] [address] [address] Social History Tobacco Use Types Packs/Day Years Used Date Smoking Tobacco: Every Day Cigarettes Last attempted to quit: 01/26/2018 Smokeless Tobacco: Never Comments:went back on Chanti x Alcohol Use Standard Drinks/Week Comments No 0 (1 standard drink = 0.6 oz pur e alcohol) Comments Unknown Sex and Gender Information Value Date Recorded Sex Assigned at Not on file Legal Sex Female 9:42 PM EDT Gender Identity Not on file Sexual Orientation Not on file documented as of this encounter Plan of Treatment Not on file documented as of this encounter Results * XR Chest Outside (No Interpretation) (02/19/2016 12:00 AM EDT) Narrative SYSTEMGENERATED, DOCUMENTATION - 02/21/2020 11:51 AM EDT This study is for PACS storage only and not for interpretation. us Provider Not In System PhD IMG OUTSIDE IMAGING W /OUT INTERPRETATION Final Result documented in this encounter Visit Diagnoses Not on filedocumented in this encounter Care Teams Door Trimmer Relationship Specialty Start Date End Date Jose Garcia MD [email or web address] PCP - General Internal Medicine 03/06/19 documented as of this encounter Additional Source Comments The information contained in this document represents components of the legal health record. It is not the complete legal health record.[facility]
--- OUTSIDE RECORDS SUMMARY | 2025-06-14 11:45 | XMS_ITS | Clinical Summary ---
Author Organization [facility] Address [address] [address] Phone Care Team Providers Care Rn Allergy Name Role Phone Jose Garcia MD Primary Care Provider +1- [phone] Allergies Active Allergy Reactions Criticality Noted Date [...] DEPRESSION SCREENING 1976 SMOKING Hx and SMOKELESS TOBACCO SCREENING 1977 HEPATITIS C SCREENING 1982 HIV ONE-TIME SCREENING (18-65 YEARS) 1982 PNEUMOCOCCAL VACCINES (50+ years) (1 of 2 - PCV) 1983 PAP SMEAR 1985 MAMMOGRAM 2004 COLOGUARD 2009 COLONOSCOPY 2009 COLORECTAL CANCER SCREENING 2009 FIT TEST 2009 FOBT 2009 SIGMOIDOSCOPY 2009 VIRTUAL COLONOSCOPY 2009 ZOSTER VACCINES (1 of 2) 2014 RSV VACCINE (1 - Risk 60-74 years 1-dose series) 2024 INFLUENZA VACCINE (#1) 2025 0, 06/15/2017, 07/05/2016, Additional history exists COVID-19 VACCINE (2 - season) 2025 02/08/2021 HEPATITIS A VACCINES Aged Out No long [...] file Insurance [place] [id number] MEDICARE PART A & B MEDICARE PART A & B MEDICARE PART A & B MEDICARE PART A & B MEDICARE PART A & B MEDICARE PART A & B MEDICARE PART A & B MEDICARE PART A & B Care Teams Rn Allergy Relationship Specialty Start Date End Date Jose Garcia MD [email or web address] PCP - General Internal Medicine 03/06/19 Additional Source Comments The information contained in this document represents components of the legal health record. It is not the complete legal health record.[facility]
--- OUTSIDE RECORDS SUMMARY | 2025-06-14 11:45 | XMS_ITS | Encounter Summary ---
Author Organization [facility] Address [address] [address] Phone Care Team Providers Care Health Commissioner Name Role Phone Jose Garcia MD Primary Care Provider [phone]- [phone] Jose Garcia MD Primary Care Provider +1- [phone] Encounter Details Date Type Department Care Team (Late st Contact Info) Description 11/25/2017 Procedure Pass [facility], Ct Scan - [address] [address] Social History Tobacco Use Types Packs/Day Years Used Date Smoking Tobacco: Former Comments Unknown Sex and Gender Information Value Date Recorded Sex Assigned at Not on file Legal Sex Female 9:42 PM EDT Gender Identity Not on file Sexual Orientation Not on file documented as of this encounter Plan of Treatment Not on file documented as of this encounter Visit Diagnoses Not on filedocumented in this encounter Care Teams Health Commissioner Relationship Specialty Start Date End Date Jose Garcia MD PCP - General 07/26/17 03/05/19 Jose Garcia MD PCP - General Internal Medicine 03/06/19 documented as of this encounter Additional Source Comments The information contained in this document represents components of the legal health record. It is not the complete legal health record.[facility]
--- OUTSIDE RECORDS SUMMARY | 2025-06-14 11:45 | XMS_ITS | Continuity of Care Document ---
Author Organization [facility] Address [address] [place] [address] Phone [phone] Social History Type Date Description Comments Sex Female Sex Unknown Medical Devices Description No Information Available Encounters Description No Information Available Assessments Description No Information Available Plan of Treatment No Information Available Functional Status Description No Information Available Mental Status Description No Information Available Referrals Description No Information Available
== END 2025-06-14 11:26 | disposition home or self-care (01) ==
LOC: HO.HPSW 10:44
PROVIDERS: PCP Nurse Practitioner Family; Referring Provider Nurse Practitioner Family; Visit Provider Nurse Practitioner Family
DX: J44.9 Chronic obstructive pulmonary disease, unspecified (principal); R91.8 Other nonspecific abnormal finding of lung field; R05.9 Cough, unspecified; R40.0 Somnolence
CPT/HCPCS: 99214; G2211

== ENCOUNTER → 2025-06-14 13:34 | Outpatient (BNV) | payer MEDICARE, MEDICAID, SELFPAY | PROVIDERS: PCP Nurse Practitioner Family; Referring Provider Nurse Practitioner Family; Visit Provider Radiology Diagnostic Radiology | DX: J44.9 Chronic obstructive pulmonary disease, unspecified (principal) | CPT/HCPCS: 71046 ==

== ENCOUNTER 2025-06-18 10:31 | Outpatient (AMB) | payer MEDICARE, MEDICAID, SELFPAY ==
[2025-06-18 10:33] VITALS: BP 96/64; PULSE 84; O2SAT 96; BMI 25.1
--- NOTE | 2025-06-18 10:33 | A.OFFVIS_ITS ---
Vital Signs 06/18/25 10:33 Height 4 ft 8 in Weight 111 lb 12.39 oz BMI 25.1 BP 96/64 Blood Pressure Location Lt brachial Position Sitting Pulse 84 Pulse Source Pulse Oximeter Pulse Oximetry (%) 96 Oxygen Delivery Method Room Air Intake Visit Reasons: f/u osteoporosis Intake Note: Patient presents for follow up on Osteoporosis follow up. Intermediate Teacher Required: No Accompanied by: LENS GRINDER AND POLISHER Allergies latex (LATEX) Allergy (Intermediate, Verified 06/18/25 10:38) RASH morphine (MORPHINE) Allergy (Intermediate, Verified 06/18/25 10:38) SWELLING alendronate sodium (From FOSAMAX) Allergy (Unknown, Verified 06/18/25 10:38) PER H+P levetiracetam (From KEPPRA) Adverse Reaction (Intermediate, Verified 06/18/25 10:38) DICKENS phenytoin (From DILANTIN) Adverse Reaction (Intermediate, Verified 06/18/25 10:38) CANT FUNCTION Medication List - Last Reconciled 06/18/25 by Alex Box MD albuterol sulfate 90 mcg/actuation (Ventolin HFA) 2 puffs inhalation Q6H PRN Arnuity Ellipta 100 mcg/actuation (fluticasone furoate) 1 inh inhalation DAILY NS aspirin 81 mg PO DAILY 90 days atorvastatin 80 mg PO DAILY 90 days [bedside commode As directed] calcium carb, citrate-vit D3 600 mg-12.5 mcg (500 unit) ER (Citracal-D3 Slow Release) 1 tab PO DAILY clonazepam (Klonopin) 1 mg PO DAILY [disposable brief-pull ups As directed] divalproex ER 500 mg PO TID doxepin 10 mg PO BEDTIME [elevated toilet seat As directed] ftynzxpbtne-rjotktjbv-guvruobh 200-62.5-25 mcg (Trelegy Ellipta) 1 inh inhalation DAILY ipratropium-albuterol 0.5 mg-3 mg(2.5 mg base)/3 mL 3 mL inhalation Q6-8H PRN lansoprazole 30 mg PO BID levothyroxine 100 mcg PO DAILY loperamide 2 mg PO Q6H PRN magnesium oxide 500 mg PO DAILY memantine (Namenda) 5 mg PO QAM metoclopramide HCl 10 mg PO QID mirabegron ER (Myrbetriq) 25 mg PO DAILY 30 days nebulizers As directed for updraft treatments, with supplies nicotine (Nicoderm CQ) 1 patch transdermal DAILY pravastatin 40 mg PO DAILY primidone 50 mg PO TID sertraline 200 mg PO QAM [versa frame for toilet As directed] zolpidem 10 mg PO BEDTIME HPI Comments Details: 59 YO Female is seen in consultation at the request of PCP for Osteoporosis. First diagnosed in yrs >[address] Zavala over 12 yrs ago Received treatment in the past with fosamax ,for 1 yr . Not Tolerated treatment well but can't recall History of pathologic fracture of hip moving furniture 34 yrs ago or ONJ. Has limited servings of dietary calcium per day in the form of cheese , ice cream . Not Takes Calcium supplement . Not Takes of Vitamin D daily. Use PPI, -anticoagulant, +antiepileptic - glucocorticoid medication. Not Does weight bearing exercise Fracture history: as above Height loss: Y [employer] MARSHAL history: Menarche at age 9 - Menopause at age 44 - nl menses Denies history of Kidney stones: Has family history of Osteoporosis in sister and mother and hip fracture. UTD on dental cleanings and sees dentist every 6 months. No planned upcoming dental work or extractions. +Tabacco use but previous ETOH abuse DXA dated 01/24/25 : EXAMINATION: DXA BONE DENSITY AXIAL HISTORY: E55.9 - Vitamin D deficiency, unspecified TECHNIQUE: Frugalo Dual energy absorptiometry (DEXA) of the lumbar spine, total left hip, and femoral neck was performed. COMPARISON: Comparison is made with the prior examination dated 01/27/2018. FINDINGS: The bone mineral density of the lumbar spine is 0.878 with a T-score of -2.5, and a Z-score of -0.9. This is indicative of osteoporosis. This represents a BMD change of 7.1% compared to the prior exam. This is statistically significant. The bone mineral density of the left total hip is 0.542 with a T-score of -3.7, and a Z-score of -2.5. This is indicative of osteoporosis. This represents a BMD change of -17.9% compared to the prior exam. This is statistically significant. The bone mineral density of the left femoral neck is 0.592 with a T-score of -3.2, and a Z-score of -1.7. This is indicative of osteoporosis. This represents a BMD change of -11.9% compared to the prior exam. FRACTURE RISK: The FRAX index suggests a ten year probability of major osteoporotic fracture of 45.6%, and of hip fracture 15.7%. MM/XR DEXA axial skeleton IMPRESSION: Based on bone mineral density, and according to World Health Organization (WHO) criteria, the diagnosis is consistent with osteoporosis. Labs: Secondary workup was negative The patient is a 59-year-old female presenting for management of osteoporosis and prevention of further fractures. The patient has a history of osteoporosis with significantly low bone density, particularly in the hips. She previously experienced a hip fracture while moving furniture, indicating the severity of her condition. Past treatment with Fosamax was discontinued due to esophagitis, necessitating alternative therapies. The patient also has a history of coronary artery disease, with a myocardial infarction occurring approximately 15 years ago. Recent evaluations indicated ongoing coronary artery disease with blockages, although no recent myocardial infarction was confirmed. Additionally, the patient has experienced a compression fracture between L1 and L2, which occurred in August. [facility] Medical History (Updated 06/14/25 @ 17:14 by Kimmy Mendoza NP) Weakness Urinary incontinence Epigastric pain Physical deconditioning Hypomagnesemia Abdominal pain Pleuritic pain Bilateral hip pain Bilateral knee pain Esophageal stricture Screening for cervical cancer Screening for colon cancer Pain in right leg Swelling of right lower extremity Breast cancer screening, high risk patient Edema Hypoglycemia Tremor Cerebral microvascular disease Hx of hiatal hernia Tubular adenoma of colon On beta matty at home Nicotine dependence, unspecified, uncomplicated Lumbosacral pain Lumbar stenosis Lumbar radiculitis Multiple pulmonary nodules COPD (chronic obstructive pulmonary disease) Osteoporosis Hypothyroid Depression Hyperlipidemia Hypertension Myocardial infarct CAD (coronary artery disease) Intracranial arachnoid cyst Cerebral atrophy Seizure Surgical History Hx of local excision of skin lesion History of foot surgery (~2013) History of tubal ligation History of heart artery stent (~2004) History of colonoscopy (~2018) History of appendectomy S/P dilatation of esophageal stricture (~2020) History of [place] fundoplication (~2019) History of esophagogastroduodenoscopy (EGD) (~2020) Family History Father Blood clots in brain Diabetes Polio Mother Breast cancer Hiatal hernia Sister Cancer Brother Myocardial infarction Family/Other Throat cancer Stomach cancer Paternal Grandmother Cancer Social History Household Members: Other Housing: Assisted Living Facility Housing Other:: Independent Living @ [facility] Are you a primary manager care to a significant other at home: No Alcohol intake: former Comment: Quit ~2006 Patient Tobacco Use Status: Current everyday Tobacco user Tobacco use type: Cigarette Cigarette Packs Per Day: 0.5 Cigarettes Per Day: 10.0 Years Smoked: 42 e-Cigarette/Vaping Use: Never Used Second Hand Smoke Exposure: No Substance Use Type: Crack/Cocaine service: No Current occupational status: disabled Cognitive needs: Yes Hearing needs: Yes Vision needs: Yes Physical Exam Vital Signs: Last Vital Signs Pulse 84 06/18/25 10:33 BP 96/64 06/18/25 10:33 Pulse Ox 96 06/18/25 10:33 Oxygen Delivery Method Room Air 06/18/25 10:33 BMI result Body Mass Index 25.1 Assessment & Plan Assessment & Plan (1) Osteoporosis: Code(s): M81.0 - Age-related osteoporosis without current pathological fracture Category: Medical Plan: This is a 59-year-old white female with a history of moderate to severe osteoporosis. secondary workup was negative. Ongoing coronary artery disease precludes the use of Evenity Plan is to consider use of anabolic therapy initially like Forteo or Tymlos proceeded by anti resorptive therapy like Prolia intravenous bisphosphonate considering the erosive gastritis considering patient is a very high risk for fracture with very low bone density and prior hip fracture. We will continue calcium and vitamin-D supplementation. Patient was intolerant to oral alendronate. 1. Osteoporosis The patient has a history of osteoporosis with low bone density, particularly in the hips, and a previous hip fracture. Fosamax was previously used but discontinued due to esophagitis. Current management options include anabolic agents to build bone density, with consideration of insurance coverage and potential contraindications due to coronary artery disease. 3. Compression fracture The patient experienced a compression fracture between L1 and L2 in November, increasing the urgency for effective osteoporosis management to prevent further fractures. During the consultation, we discussed the patient's osteoporosis management, focusing on anabolic agents to enhance bone density. We reviewed the potential options, including Tymlos, considering the patient's history of coronary artery disease and insurance constraints. The risks and benefits of each medication were outlined, emphasizing the importance of preventing further fractures. We also addressed the patient's coronary artery disease, noting the need for careful selection of osteoporosis treatments to avoid contraindications. Follow- up plans include attempting to secure insurance approval for the preferred medication and considering alternatives if necessary. The patient had an opportunity to ask questions regarding treatment plan. The patient expressed understanding and agreement with the above treatment plan. Patient was informed and verbally consented to the use of an ambient scribe for clinic note documentation during this visit. Medications: New abaloparatide (Tymlos) inject into abdomen; do not inject within 2 inches of belly button/navel; rotate sites 80 mcg (0.04 mL) subcut DAILY 1.56 mL 11RF Coding Level of Care Code Est Pt Level 3 (03170) Diagnoses Osteoporosis M81.0
--- OUTSIDE RECORDS SUMMARY | 2025-06-18 12:23 | XMS_ITS | Encounter Summary ---
Author Organization [facility] Address [address] [address] Phone Care Team Providers Care Pearl Peller Name Role Phone Jose Garcia MD Primary Care Provider +1- [phone] Jose Garcia MD Primary Care Provider +1- [phone] Encounter Details Date Type Department Care Team (Late st Contact Info) Description 11/25/2017 Procedure Pass [facility], Ct Scan - [address] [address] Social History Tobacco Use Types Packs/Day Years [...] on filedocumented in this encounter Care Teams Pearl Peller Relationship Specialty Start Date End Date Jose Garcia MD PCP - General 07/26/17 03/05/19 Jose Garcia MD PCP - General Internal Medicine 03/06/19 documented as of this encounter Additional Source Comments The information contained in this document represents components of the legal health record. It is not the complete legal health record.[facility]
--- OUTSIDE RECORDS SUMMARY | 2025-06-18 12:23 | XMS_ITS | Continuity of Care Document ---
Author Organization [facility] Address [address] [place] [address] Phone [phone] Social History Type Date Description Comments Sex Female Sex Unknown Medical Devices Description No Information Available Encounters Description No Information Available Assessments Description No Information Available Plan of Treatment No Information Available Functional Status Description No Information Available Mental Status Description No Information Available Referrals Description No Information Available
--- OUTSIDE RECORDS SUMMARY | 2025-06-18 12:23 | XMS_ITS | Clinical Summary ---
Author Organization [facility] Address [address] [address] Phone Care Team Providers Care Associate Entertainment Editor Name Role Phone Jose Garcia MD Primary Care Provider +1- [phone] Allergies Active Allergy Reactions Criticality Noted Date [...] [place] [id number] MEDICARE PART A & B MEDICARE PART A & B MEDICARE PART A & B MEDICARE PART A & B MEDICARE PART A & B MEDICARE PART A & B MEDICARE PART A & B MEDICARE PART A & B Care Teams Associate Entertainment Editor Relationship Specialty Start Date End Date Jose Garcia MD [email or web address] PCP - General Internal Medicine 03/06/19 Additional Source Comments The information contained in this document represents components of the legal health record. It is not the complete legal health record.[facility]
--- OUTSIDE RECORDS SUMMARY | 2025-06-18 12:23 | XMS_ITS | Encounter Summary ---
Author Organization [facility] Address [address] [place] [id number] Phone Care Team Providers Care Grain Unloader Name Role Phone Jose Garcia MD Primary Care Provider +1- [phone] Encounter Details Date Type Department Care Team (Late st Contact Info) Description 02/21/2020 Ancillary Orders [facility],Outside Imaging [address] [place] [address] System, Provider Not In, [facility] [address] [address] Social History Tobacco Use Types Packs/Day Years [...] on filedocumented in this encounter Care Teams Grain Unloader Relationship Specialty Start Date End Date Jose Garcia MD [email or web address] PCP - General Internal Medicine 03/06/19 documented as of this encounter Additional Source Comments The information contained in this document represents components of the legal health record. It is not the complete legal health record.[facility]
--- OUTSIDE RECORDS SUMMARY | 2025-06-18 12:23 | XMS_ITS | Clinical Summary ---
Author Organization [facility] Address [address] [place] [address] Phone Care Team Providers Care Audio Video Mechanic Name Role Phone BethcarlosSrikanth NP Primary Care Provider Allergies No known active allergies Encounters Date Type Department Care Team Description 05/13/2025 7:10 PM EDT - 05/14/2025 10:[address] [facility] [address] [place] [address] Srikanth Cornejo MD Kokkinos, Erika, MD Gordon, Ruth, MD Breakthrough seizure (CMS/HCC V24, CMS/[facility] V28) (Primary Dx); Hypomagnesemia Discharge Disposition: Home [...] reflex microscopic (05/14/2025 5:21 AM EDT) Specific Nursery Urine 1.008 1.003 - 1.030 LAB URINALYSIS - AUTOMATED METHOD 05/14/2025 5:50 AM EDT [facility] pH, Urine 7.0 5.0 - 8.0 pH LAB URINALYSIS - AUTOMATED METHOD 05/14/2025 5:50 AM [facility] Leukocytes, Urine Negative Negative LAB URINALYSIS - AUTOMATED METHOD 05/14/2025 5:50 AM [facility] Nitrite, Urine Negative Negative LAB URINALYSIS - AUTOMATED METHOD 05/14/2025 5:50 AM [facility] Protein, Urine Negative <=Trace mg/dL LAB URINALYSIS - AUTOMATED METHOD 05/14/2025 5:50 AM [facility] Glucose, Urine Negative Negative mg/dL LAB URINALYSIS - AUTOMATED METHOD 05/14/2025 5:50 AM [facility] Ketones, Urine Negative Negative mg/dL LAB URINALYSIS - AUTOMATED METHOD 05/14/2025 5:50 AM [facility] Urobilinogen, Urine 0.2 0.2 - 1.0 mg/dL LAB URINALYSIS - AUTOMATED METHOD 05/14/2025 5:50 AM [facility] Bilirubin, Urine Negative Negative LAB URINALYSIS - AUTOMATED METHOD 05/14/2025 5:50 AM [facility] Blood, Urine Negative Negative LAB URINALYSIS - AUTOMATED METHOD 05/14/2025 5:50 AM [facility] Urine Urine specimen obtained by clean catch procedure / Unknown Non-blood Collection / Unknown 05/14/2025 5:21 AM EDT 05/14/2025 5:36 AM EDT us Srkianth Cornejo MD LAB URINE ORDERABLES Final Resul t [facility] [address] [place] [address], * [place] top urine tube (05/14/2025 5:21 AM EDT) Extra Tube Hold for add-ons. 05/14/2025 7:01 AM EDT [facility] Comment:Auto resulted. Urine Urine specimen obtained by clean catch procedure / Unknown 05/14/2025 5:21 AM EDT 05/14/2025 5:36 AM EDT Srikanth Cornejo MD LAB URINE ORDERABLES Final Resul t Performing Organization Address [facility] Co de Phone Number [facility] [address] [place] [address], [place] [phone] * Yellow urine no additive (05/14/2025 5:21 AM EDT) Extra Tube Hold for add-ons. 05/14/2025 7:01 AM EDT [facility] Comment:Auto resulted. Urine Urine specimen obtained by clean catch procedure / Unknown 05/14/2025 5:21 AM EDT 05/14/2025 5:36 AM EDT Srikanth Cornejo MD LAB URINE ORDERABLES Final Resul t Performing Organization Address [facility] de Phone Number [facility] [address] [place] [address], [place] [phone] * Valproic acid level, total and free [...] LAB Comment: Test Performed by Vinicio Bangura, [facility], [address] [place] [address] Dirk Mayen M.D., Ph.D., Director of Laboratories , [place] [id number] Blood Venous blood specimen / Unknown Venipuncture / Unknown 05/14/2025 3:06 AM EDT 05/14/2025 3:13 AM EDT us Bettie Stoner MD LAB BLOOD ORDERABLES Final Res ult ISABEL WHITE [address] [place] [address] * CT Head wo Contrast [...] Signed Date: 05/14/2025 07:21 ET Workstation ID: [id number] Transcribed By: Self Edit Transcribed Date: 05/14/2025 [...] Signed Date: 05/14/2025 07:21 ET Workstation ID: [id number] Transcribed By: Self Edit Transcribed Date: 05/14/2025 07:19 ET Srikanth Cornejo MD IMG XR PROCEDURES Final Result * (ABNORMAL) CBC auto differential (05/13/2025 7:32 PM EDT) WBC 4.9 4.8 - 10.8 K/mcL LAB HEMETOLOGY METHOD 05/13/2025 7:57 PM EDT [facility] RBC 4.20 3.80 - 4.80 M/mcL LAB HEMETOLOGY METHOD 05/13/2025 7:57 PM EDT [facility] Hemoglobin 12.4 11.5 - 16.0 g/dL LAB HEMETOLOGY METHOD 05/13/2025 7:57 PM EDT [facility] Hematocrit 39.6 35.0 - 47.0 % LAB HEMETOLOGY METHOD 05/13/2025 7:57 PM EDT [facility] MCV 94.7 79.0 - 98.0 FL LAB HEMETOLOGY METHOD 05/13/2025 7:57 PM EDT [facility] MCH 29.7 27.0 - 32.0 pcg LAB HEMETOLOGY METHOD 05/13/2025 7:57 PM EDT [facility] MCHC 31.3(L) 32.0 - 37.0 g/dL LAB HEMETOLOGY METHOD 05/13/2025 7:57 PM EDT [facility] RDW 15.0 11.0 - 15.0 % LAB HEMETOLOGY METHOD 05/13/2025 7:57 PM EDT [facility] Platelets 249 130 - 400 K/mcL LAB HEMETOLOGY METHOD 05/13/2025 7:57 PM EDT [facility] MPV 10.2 7.0 - 11.0 FL LAB HEMETOLOGY METHOD 05/13/2025 7:[facility] NRBC 0.0 <1.0 % LAB HEMETOLOGY METHOD 05/13/2025 7:57 PM [facility] NRBC Absolute 0.00 <0.10 K/mcL LAB HEMETOLOGY METHOD 05/13/2025 7:57 PM [facility] Neutrophils Relative 39.5 % LAB HEMETOLOGY METHOD 05/13/2025 7:57 PM [facility] Lymphocytes Relative 44.1 % LAB HEMETOLOGY METHOD 05/13/2025 7:57 PM [facility] Monocytes Relative 11.5 % LAB HEMETOLOGY METHOD 05/13/2025 7:57 PM [facility] Eosinophils Relative 3.5 % LAB HEMETOLOGY METHOD 05/13/2025 7:57 PM [facility] Basophils Relative 0.8 % LAB HEMETOLOGY METHOD 05/13/2025 7:57 PM [facility] Immature Granulocytes Relative 0.6 % LAB HEMETOLOGY METHOD 05/13/2025 7:57 PM [facility] Neutrophils Absolute 1.93 1.50 - 7.00 K/mcL LAB HEMETOLOGY METHOD 05/13/2025 7:57 PM [facility] Lymphocytes Absolute 2.15 1.00 - 5.00 K/mcL LAB HEMETOLOGY METHOD 05/13/2025 7:57 PM [facility] Monocytes Absolute 0.56 0.20 - 1.00 K/mcL LAB HEMETOLOGY METHOD 05/13/2025 7:57 PM [facility] Eosinophils Absolute 0.17 0.00 - 0.50 K/mcL LAB HEMETOLOGY METHOD 05/13/2025 7:57 PM [facility] Basophils Absolute 0.04 0.00 - 0.20 K/Health system LAB HEMETOLOGY METHOD 05/13/2025 7:57 PM EDT [facility] Immature Granulocytes Absolute 0.03 0.00 - 0.03 K/Health system LAB HEMETOLOGY METHOD 05/13/2025 7:57 PM EDT [facility] Blood Venous blood specimen / Unknown Venipuncture / Unknown 05/13/2025 7:32 PM EDT 05/13/2025 7:53 PM EDT Srikanth Cornejo MD LAB BLOOD ORDERABLES Final Resul t Performing Organization Address [facility] Co de Phone Number [facility] [address] [place] [address], [place] [phone] * Prolactin (05/13/2025 7:32 PM EDT) Prolactin 79.00 See Comment ng/mL LAB CHEMISTRY METHOD 05/13/2025 8:27 PM EDT [facility] Comment: Prolactin Reference Ranges (ng/mL) Non 2.2 - 30.3 8.1 - 347.6 Postmenopausal 0.7 - 31.5 Blood Venous blood specimen / Unknown Venipuncture / Unknown 05/13/2025 7:32 PM EDT 05/13/2025 7:53 PM EDT us Srikanth Cornejo MD LAB BLOOD ORDERABLES Final Resul t Performing Organization Address City/[facility]/ZIP Co de Phone Number [facility] [address] [place] [address], [place] [phone] * (ABNORMAL) Magnesium (05/13/2025 7:32 PM EDT) Magnesium 1.7(L) 1.9 - 2.6 mg/dL LAB CHEMISTRY METHOD 05/13/2025 8:23 PM EDT [facility] Blood Venous blood specimen / Unknown Venipuncture / Unknown 05/13/2025 7:32 PM EDT 05/13/2025 7:53 PM EDT us Srikanth Cornejo MD LAB BLOOD ORDERABLES Final Resul t Performing Organization Address City/[facility]/ZIP Co de Phone Number [facility] [address] [place] [address], [place] [phone] * Valproic acid level, total (05/13/2025 7:32 PM EDT) Pathologist [facility] Valproic Acid, Total 95 50 - 100 mcg/mL LAB CHEMISTRY METHOD 05/14/2025 9:04 AM EDT [facility] Blood Venous blood specimen / Unknown Venipuncture / Unknown 05/13/2025 7:32 PM EDT 05/13/2025 7:53 PM EDT us Bettie Stoner MD LAB BLOOD ORDERABLES Final Res ult Performing Organization Address City/[facility]/ZIP Co de Phone Number [facility] [address] [place] [address], [place] [phone] * Basic metabolic panel (05/13/2025 7:32 PM EDT) [facility] Sodium 137 133 - 145 mmol/L LAB CHEMISTRY METHOD 05/13/2025 8:23 PM EDT [facility] Potassium 4.0 3.5 - 5.5 mmol/L LAB CHEMISTRY METHOD 05/13/2025 8:23 PM EDT [facility] Chloride 100 96 - 110 mmol/L LAB CHEMISTRY METHOD 05/13/2025 8:23 PM EDT [facility] CO2 30 21 - 32 mmol/L LAB CHEMISTRY METHOD 05/13/2025 8:23 PM EDT [facility] Anion Gap 7 3 - 11 LAB CHEMISTRY METHOD 05/13/2025 8:23 PM EDT [facility] Glucose 88 70 - 100 mg/dL LAB CHEMISTRY METHOD 05/13/2025 8:23 PM EDT [facility] BUN 7 5 - 25 mg/dL LAB CHEMISTRY METHOD 05/13/2025 8:23 PM EDT [facility] Creatinine 0.72 0.50 - 1.10 mg/dL LAB CHEMISTRY METHOD 05/13/2025 8:23 PM EDT [facility] eGFR 96 >=60 mL/min/1. 73m2 LAB CHEMISTRY METHOD 05/13/2025 8:23 PM EDT [facility] Comment:Calculation based on the Chronic Kidney Disease Epidemiology Collaboration (CKD-EPI) equation refit without adjustment for race. BUN/Creatinine Ratio 9.7 LAB CHEMISTRY METHOD 05/13/2025 8:23 PM EDT [facility] Calcium 8.7 8.5 - 10.5 mg/dL LAB CHEMISTRY METHOD 05/13/2025 8:23 PM EDT [facility] Blood Venous blood specimen / Unknown Venipuncture / Unknown 05/13/2025 7:32 PM EDT 05/13/2025 7:53 PM EDT us Srikanth Cornejo MD LAB BLOOD ORDERABLES Final Resul t [facility] [address] [place] [address], from Last 3 Months Insurance MEDICARE [place]ICA[place] - [place] Advance Directives Documents on File Type Date Recorded Patient Account Consultant Expl anation Health Care Decision (hx) 09/18/2020 AD LAUREANO DIRECTIVE Health Care Decision (hx) 09/18/2020 AD LAUREANO DIRECTIVE Health Care Decision (hx) 09/18/2020 AD LAUREANO DIRECTIVE Care Teams Audio Video Mechanic Relationship Specialty Start Date End Date Srikanth Palomares NP [address], [place] PCP - General Family Medicine 05/13/25
== END 2025-06-18 11:05 | disposition home or self-care (01) ==
LOC: HO.ENCR 10:32
PROVIDERS: PCP Nurse Practitioner Family; Visit Provider Internal Medicine Endocrinology, Diabetes & Metabolism
DX: M81.0 Age-related osteoporosis without current pathological fracture (principal)
CPT/HCPCS: 99213

== ENCOUNTER → 2025-06-18 10:31 | Outpatient (BNVA) | payer MEDICARE, MEDICAID, SELFPAY | PROVIDERS: PCP Nurse Practitioner Family; Visit Provider Internal Medicine Endocrinology, Diabetes & Metabolism | DX: M81.0 Age-related osteoporosis without current pathological fracture (principal) | CPT/HCPCS: 99212 ==

== ENCOUNTER 2025-06-19 12:10 | Outpatient (AMB) | payer MEDICARE, MEDICAID, SELFPAY ==
--- NOTE | 2025-06-19 12:13 | MHC.OFFVIS ---
Vital Signs 06/19/25 12:14 Height 4 ft 8 in Weight 144 lb 11.41 oz BMI 32.4 BP 101/77 Blood Pressure Location Lt brachial Position Sitting Pulse 94 Intake Visit Reasons: r/s 05/24 Intake Note: Yuli presents in the office as a follow up. CC: She states that she has choking on foods, drinks, her teeth. She states it has gotten worse! Artifacts Conservator Required: No Allergies latex (LATEX) Allergy (Intermediate, Verified 06/19/25 12:14) RASH morphine (MORPHINE) Allergy (Intermediate, Verified 06/19/25 12:14) SWELLING alendronate sodium (From FOSAMAX) Allergy (Unknown, Verified 06/19/25 12:14) PER H+P levetiracetam (From KEPPRA) Adverse Reaction (Intermediate, Verified 06/19/25 12:14) DICKENS phenytoin (From DILANTIN) Adverse Reaction (Intermediate, Verified 06/19/25 12:14) CANT FUNCTION HPI HPI r/s 05/24: Details: Assessment & Plan (1) Achalasia: Code(s): K22.0 - Achalasia of cardia Category: Medical (2) Dysphagia: Code(s): R13.10 - Dysphagia, unspecified Category: Medical (3) Tubular adenoma of colon: Comment: 2019 SCOPE= TA REPEAT IN 5 YEARS Code(s): D12.6 - Benign neoplasm of colon, unspecified Category: Medical (4) Erosive esophagitis: Code(s): K22.10 - Ulcer of esophagus without bleeding Category: Medical (5) Nausea and vomiting: Code(s): R11.2 - Nausea with vomiting, unspecified Category: Medical (6) Esophageal spasm: Code(s): K22.4 - Dyskinesia of esophagus Category: Medical (7) GERD with esophagitis: Code(s): K21.00 - Gastro-esophageal reflux disease with esophagitis, without bleeding Category: Medical (8) Delayed gastric emptying: Code(s): K30 - Functional dyspepsia Category: Medical (9) Erosive gastritis: Code(s): K29.60 - Other gastritis without bleeding Category: Medical (10) COPD (chronic obstructive pulmonary disease): Code(s): J44.9 - Chronic obstructive pulmonary disease, unspecified Category: Medical (11) Diarrhea: Code(s): R19.7 - Diarrhea, unspecified Category: Medical (12) Pre-op examination: Code(s): Z01.818 - Encounter for other preprocedural examination Category: Medical Plan Pt has been lost to follow up since 04/2024 Her new CREATIVE WRITER is name is [place]. She says she is not doing well. She is here with a new CREATIVE WRITER who is quite involved and helpful. Yuli is now in independent living. Has a walker. She is c/o severe dyphagia, and says I need an EGD. However in the past she did not resolve with dilation and we were to do esoph manometry and ? achalasia. This never happened. The endoscopist did not feel she would benefit from further dilations. However she is really quite insistent that she wants an endoscopy and given her history of erosive esophagitis I will get 1 to see if there is any other contributing factors. In the meantime we discussed safe swallowing precautions and I recommended a soft diet. We will refer her again to [facility] for esophageal manometry and potential treatment. In the past there was no help with Bentyl or CCB, and now her blood pressures are running low about 100 systolic so I would not want to do any trial of a blood pressure affecting medicine. She finds food getting stuck at 2 places, at sternal notch and mid sternal area. She also has severe pain in the mid chest which seems to speak to spasm. She will still have unexpected vomiting without nausea despite taking reglan ? if this is refluxed from esophagus. she is s/o belgica fund. EGD repeat barium swallow as last was in 2020, will get uS to see if GB pathology has any effect. She has COPD that she says is controlled and denies any ongoing cardiac problems. There are no prior problems with anesthesia or sedation. There are no infectious disease problems. ROV 8 weeks. Orders: Orders [place] barium swallow Today K22.0 - Achalasia of cardia, K22.10 - Ulcer of esophagus without bleeding, R13.10 - Dysphagia, unspecified EGD/[facility] Combo - GI Use Only Today D12.6 - Benign neoplasm of colon, unspecified, R13.10 - Dysphagia, unspecified US abdomen complete Today R11.2 - Nausea with vomiting, unspecified Referrals Gastroenterology Referral K22.0 - Achalasia of cardia, K22.10 - Ulcer of esophagus without bleeding, R13.10 - Dysphagia, unspecified EGD/COLONOSSCOPY US ABD 04/26/2025 Findings: The visualized pancreas is normal, pancreatic tail is not well seen due to bowel gas shadowing The visualized aorta and inferior vena cava are normal caliber. The liver is mildly small, right lobe length is 12 cm. Normal in echogenicity, no discrete lesion is visualized in the imaged liver. No intrahepatic bile duct dilatation. The common duct is 2 mm in diameter. The gallbladder is normal. Negative sonographic Oliveira sign. The main portal vein is patent with antegrade flow. The right kidney is normal, 9 cm in length. The left kidney is normal, 9 cm in length. The spleen is normal, 8 cm in length. No free fluid in the abdomen. Impression: No acute finding. No sonographic finding to account for nausea or vomiting. BARIUM SWALLOW 08/30 TODAYS VISIT [facility] Medical History Weakness Urinary incontinence Epigastric pain Physical deconditioning Hypomagnesemia Abdominal pain Pleuritic pain Bilateral hip pain Bilateral knee pain Esophageal stricture Screening for cervical cancer Screening for colon cancer Pain in right leg Swelling of right lower extremity Breast cancer screening, high risk patient Edema Hypoglycemia Tremor Cerebral microvascular disease Hx of hiatal hernia Tubular adenoma of colon On beta matty at home Nicotine dependence, unspecified, uncomplicated Lumbosacral pain Lumbar stenosis Lumbar radiculitis Multiple pulmonary nodules COPD (chronic obstructive pulmonary disease) Osteoporosis Hypothyroid Depression Hyperlipidemia Hypertension Myocardial infarct CAD (coronary artery disease) Intracranial arachnoid cyst Cerebral atrophy Seizure Surgical History Hx of local excision of skin lesion History of foot surgery (~2013) History of tubal ligation History of heart artery stent (~2004) History of colonoscopy (~2018) History of appendectomy S/P dilatation of esophageal stricture (~2020) History of Belgica fundoplication (~2019) History of esophagogastroduodenoscopy (EGD) (~2020) Family History Father Blood clots in brain Diabetes Polio Mother Breast cancer Hiatal hernia Sister Cancer Brother Myocardial infarction Family/Other Throat cancer Stomach cancer Paternal Grandmother Cancer Social History Household Members: Other Housing: Assisted Living Facility Housing Other:: Independent Living @ [facility] Are you a primary property caretaker to a significant other at home: No Alcohol intake: former Comment: Quit ~2006 Patient Tobacco Use Status: Current everyday Tobacco user Tobacco use type: Cigarette Cigarette Packs Per Day: 0.5 Cigarettes Per Day: 10.0 Years Smoked: 42 e-Cigarette/Vaping Use: Never Used Second Hand Smoke Exposure: No Substance Use Type: Crack/Cocaine service: No Current occupational status: disabled Cognitive needs: Yes Hearing needs: Yes Vision needs: Yes Review of Systems Const Denies fatigue, Denies fever(s), Reports frequent falls, Denies night sweats, Denies poor appetite and Denies weight loss ENT Reports Normal hearing present, Reports dysphagia, Denies odynophagia, Reports disequilibrium, Denies throat swelling and Denies tongue swelling Card Reports no additional complaints Resp Reports no additional complaints GI Details: Denies abdominal pain, Denies melena, Denies bloating, Denies hematochezia, Denies constipation, Denies GI cramping, Reports dysphagia, Denies excessive flatus, Denies early satiety, Reports heartburn, Denies diarrhea, Denies nausea, Denies odynophagia, Denies vomiting and Denies hematemesis Musc Reports abnormal gait Skin/Breast Denies pruritus, Denies lesions, Denies rash and Denies jaundice Neuro Reports Normal hearing present, Denies Abnormal speech present, Reports abnormal gait, Reports frequent falls, Reports memory loss, Reports tremor(s) and Reports disequilibrium Psych Reports memory loss Endo Denies fatigue Aller/Immun Denies throat swelling and Denies tongue swelling Physical Exam Vital Signs: Last Vital Signs Pulse 94 06/19/25 12:14 BP 101/77 06/19/25 12:14 BMI result Body Mass Index 54.9 Const General: cooperative, no acute distress, well developed and well groomed Nutritional Appearance: average body habitus and well nourished Orientation/consciousness: oriented to person, oriented to place and oriented to time Limitations: No language barrier and ambulation with walker HEENT Head: Yes normocephalic and Yes atraumatic Eyes General: appearance normal, both eyes and all related structures Pupils: Equal, round and reactive pupils present Neck Neck: Yes normal visual inspection and Yes no lymphadenopathy Thyroid: Thyroid normal Resp Effort & Inspection: normal respiratory effort and able to speak in complete sentences Auscultation: clear to auscultation bilaterally Cardio Rate: regular rate Rhythm: regular rhythm Heart sounds: Normal, physiologic split S2 sound present Peripheral pulses: radial pulses present and posterior tibial pulses present GI Inspection: No distended, No Abdominal panniculus present and Yes obesity Palpation (GI): Soft to palpation, nontender, no guarding, not rigid and No hepatosplenomegaly present Percussion: Yes normal to percussion Auscultation: normal bowel sounds Rectal Exam - Female: deferred Skin General skin exam: no rashes or lesions noted, turgor normal, skin not dry, no jaundice, No spider nevi and no striae Rashes: no rashes Nails: normal Neuro Other: Severe March tremor of the hands with flapping General: oriented to person, oriented to place, oriented to time, No gait normal (Stiff somewhat ataxic gait) and No tone normal Cranial nerves: Yes Equal, round and reactive pupils present and Yes Normal hearing present Speech: No Abnormal speech present Extrem General: Yes normal to inspection, No clubbing, No cyanosis and No edema Psych Thought process: Normal thought process present and not confabulating Thought content: Normal thought content present Insight: Good insight present (Psych) Judgement: Good judgement present (Psych) Results Reviewed Results Reviewed: US ABD 04/26/2025 Findings: The visualized pancreas is normal, pancreatic tail is not well seen due to bowel gas shadowing The visualized aorta and inferior vena cava are normal caliber. The liver is mildly small, right lobe length is 12 cm. Normal in echogenicity, no discrete lesion is visualized in the imaged liver. No intrahepatic bile duct dilatation. The common duct is 2 mm in diameter. The gallbladder is normal. Negative sonographic Oliveira sign. The main portal vein is patent with antegrade flow. The right kidney is normal, 9 cm in length. The left kidney is normal, 9 cm in length. The spleen is normal, 8 cm in length. No free fluid in the abdomen. Impression: No acute finding. No sonographic finding to account for nausea or vomiting Assessment & Plan Assessment & Plan (1) Achalasia: Code(s): K22.0 - Achalasia of cardia Category: Medical (2) Dysphagia: Code(s): R13.10 - Dysphagia, unspecified Category: Medical (3) GERD with esophagitis: Code(s): K21.00 - Gastro-esophageal reflux disease with esophagitis, without bleeding Category: Medical (4) Esophageal spasm: Code(s): K22.4 - Dyskinesia of esophagus Category: Medical (5) Tubular adenoma of colon: Comment: 2019 SCOPE= TA REPEAT IN 5 YEARS Code(s): D12.6 - Benign neoplasm of colon, unspecified Category: Medical Plan She is here today with a female family member who is supportive. - The patient is a 59-year-old female presenting with worsening dysphagia. - Dysphagia symptoms include severe choking with liquids and an inability to tolerate even a soft diet or liquids at this time, which certainly has progressed since I last saw her. - Previous endoscopy and dilation in 2022 did not alleviate symptoms, raising concerns about a motility disorder rather than an obstructive one. - Past esophageal evaluations identified esophageal spasms and impaired movement without a persistent stricture, pointing towards neurological issues affecting swallowing coordination. - Consideration of achalasia has been raised, aligning with previous diagnostic results reporting non-relaxing features of the esophagus. She was referred for an esophageal manometry at [facility] a this study has not been scheduled until October 09. She also has an upcoming barium swallow August 30. I will try to send a note to our schedulers to see if we can get the EGD/colonoscopy sooner. However, I am unconvinced that this will solve her problem and spent a great deal of time educating her and her family as to why I think this will not work. Mostly, it did not work when we used it in the past. The treatment for esophageal dysmotility or achalasia or more complex, usually needing input from Neurology (the patient has other neurologic sequelae including a tremor and a spastic gait of uncertain origin along with a seizure disorder) or needing surgical correction or something like Botox injections. Unfortunately, there is usually very little success with intervening medications such as dicyclomine or a calcium channel matty. Also, the patient has comorbid cardiac disease with a past [place]. At this point we will bring her back after the barium swallow. EGD/COLONOSSCOPY BARIUM SWALLOW 08/30 Coding Level of Care Code Est Pt Level 3 (62956) Diagnoses Achalasia K22.0 Dysphagia R13.10 GERD with esophagitis K21.00 Esophageal spasm K22.4 Tubular adenoma of colon D12.6
[2025-06-19 12:14] VITALS: BP 101/77; PULSE 94; BMI 32.4
--- OUTSIDE RECORDS SUMMARY | 2025-06-19 15:19 | XMS_ITS | Encounter Summary ---
Author Organization [facility] Address [address] [place] [id number] Phone Care Team Providers Care Runner On Name Role Phone Jose Garcia MD Primary Care Provider [phone] Encounter Details Date Type Department Care Team (Late st Contact Info) Description 02/21/2020 Ancillary Orders [facility],Outside Imaging [address] [place] [address] System, Provider Not In, [facility] [address] [address] Social History Tobacco Use Types Packs/Day Years [...] on filedocumented in this encounter Care Teams Runner On Relationship Specialty Start Date End Date Jose Garcia MD [email or web address] PCP - General Internal Medicine 03/06/19 documented as of this encounter Additional Source Comments The information contained in this document represents components of the legal health record. It is not the complete legal health record.[facility]
--- OUTSIDE RECORDS SUMMARY | 2025-06-19 15:19 | XMS_ITS | Clinical Summary ---
Author Organization [facility] Address [address] [place] [address] Phone Care Team Providers Care Marbleizer Name Role Phone MarianalbaroSrikanth NP Primary Care Provider [phone] Allergies No known active allergies Encounters Date Type Department Care Team Description 05/13/2025 7:10 PM EDT - 05/14/2025 10:[address] [facility] Emergency [address] [place] [address] Srikanth Cornejo MD Kokkinos, Erika, MD Gordon, Ruth, MD Breakthrough seizure (CMS/HCC V24, CMS/[facility] V28) (Primary Dx); Hypomagnesemia Discharge [...] reflex microscopic (05/14/2025 5:21 AM EDT) Specific [place] Urine 1.008 1.003 - 1.030 LAB URINALYSIS - AUTOMATED METHOD 05/14/2025 5:[address] [facility] pH, Urine 7.0 5.0 - [...] MD LAB URINE ORDERABLES Final Resul t [facility] [address] [place] [address], * [place] urine tube (05/14/2025 5:21 AM EDT) Extra Tube Hold for add-ons. 05/14/2025 7:01 AM EDT [facility] Comment:Auto resulted. Urine Urine specimen obtained by clean catch procedure / Unknown 05/14/2025 5:21 AM EDT 05/14/2025 5:36 AM EDT Srikanth Cornejo MD LAB URINE ORDERABLES Final Resul t Performing Organization Address [facility] Co de Phone Number [facility] [address] [place] [address], [place] [phone] * Yellow urine no additive (05/14/2025 5:21 AM EDT) Extra Tube Hold for add-ons. 05/14/2025 7:01 AM EDT [facility] Comment:Auto resulted. Urine Urine specimen obtained by clean catch procedure / Unknown 05/14/2025 5:21 AM EDT 05/14/2025 5:36 AM EDT Srikanth Cornejo MD LAB URINE ORDERABLES Final Resul t Performing Organization Address [facility] de Phone Number [facility] [address] [place] [address], [place] [phone] * Valproic acid level, total and free [...] LAB Comment: Test Performed by Vinicio Bangura, [employer] [facility], [address] [place] [address] Dirk Mayen M.D., Ph.D., Director of Laboratories , [place] [id number] Blood Venous blood specimen / Unknown Venipuncture / Unknown 05/14/2025 3:06 AM EDT 05/14/2025 3:13 AM EDT us Bettie Stoner MD LAB BLOOD ORDERABLES Final Res ult ISABEL WHITE [address] [place] [address] * CT Head wo Contrast [...] Signed Date: 05/14/2025 07:21 ET Workstation ID: [id number] Transcribed By: Self Edit Transcribed Date: 05/14/2025 [...] Signed Date: 05/14/2025 07:21 ET Workstation ID: [id number] Transcribed By: Self Edit Transcribed Date: 05/14/2025 07:19 ET Srikanth Cornejo MD IMG XR PROCEDURES Final Result * (ABNORMAL) CBC auto differential (05/13/2025 7:32 PM EDT) WBC 4.9 4.8 - 10.8 K/mcL LAB HEMETOLOGY METHOD 05/13/2025 7:57 PM EDT [facility] RBC 4.20 3.80 - 4.80 M/mcL LAB HEMETOLOGY METHOD 05/13/2025 7:57 PM EDT [facility] Hemoglobin 12.4 11.5 - 16.0 g/dL LAB HEMETOLOGY METHOD 05/13/2025 7:57 PM EDT [facility] Hematocrit 39.6 35.0 - 47.0 % LAB HEMETOLOGY METHOD 05/13/2025 7:57 PM EDT [facility] MCV 94.7 79.0 - 98.0 FL LAB HEMETOLOGY METHOD 05/13/2025 7:57 PM EDT [facility] MCH 29.7 27.0 - 32.0 pcg LAB HEMETOLOGY METHOD 05/13/2025 7:57 PM EDT [facility] MCHC 31.3(L) 32.0 - 37.0 g/dL LAB HEMETOLOGY METHOD 05/13/2025 7:57 PM EDT [facility] RDW 15.0 11.0 - 15.0 % LAB HEMETOLOGY METHOD 05/13/2025 7:57 PM EDT [facility] Platelets 249 130 - 400 K/mcL LAB HEMETOLOGY METHOD 05/13/2025 7:57 PM EDT [facility] MPV 10.2 7.0 - 11.0 FL LAB HEMETOLOGY METHOD [facility]25 [facility] NRBC 0.0 <1.0 % LAB [...] Basophils Absolute 0.04 0.00 - 0.20 K/[facility] LAB HEMETOLOGY METHOD 05/13/2025 7:57 PM EDT [facility] Immature Granulocytes Absolute 0.03 0.00 - 0.03 K/[facility] LAB HEMETOLOGY METHOD 05/13/2025 7:57 PM EDT [facility] Blood Venous blood specimen / Unknown Venipuncture / Unknown 05/13/2025 7:32 PM EDT 05/13/2025 7:53 PM EDT Srikanth Cornejo MD LAB BLOOD ORDERABLES Final Resul t Performing Organization Address [facility] Co de Phone Number [facility] [address] [place] [address], [place] [phone] * Prolactin (05/13/2025 7:32 PM EDT) Prolactin 79.00 See Comment ng/mL LAB CHEMISTRY METHOD 05/13/2025 8:27 PM EDT [facility] Comment: Prolactin Reference Ranges (ng/mL) Non 2.2 - 30.3 8.1 - 347.6 Postmenopausal 0.7 - 31.5 Blood Venous blood specimen / Unknown Venipuncture / Unknown 05/13/2025 7:32 PM EDT 05/13/2025 7:53 PM EDT us Srikanth Cornejo MD LAB BLOOD ORDERABLES Final Resul t Performing Organization Address City/[facility]/ZIP Co de Phone Number [facility] [address] [place] [address], [place] [phone] * (ABNORMAL) Magnesium (05/13/2025 7:32 PM EDT) Magnesium 1.7(L) 1.9 - 2.6 mg/dL LAB CHEMISTRY METHOD 05/13/2025 8:23 PM EDT [facility] Blood Venous blood specimen / Unknown Venipuncture / Unknown 05/13/2025 7:32 PM EDT 05/13/2025 7:53 PM EDT us Srikanth Cornejo MD LAB BLOOD ORDERABLES Final Resul t Performing Organization Address City/[facility]/ZIP Co de Phone Number [facility] [address] [place] [address], [place] [phone] * Valproic acid level, total (05/13/2025 7:32 PM EDT) Pathologist [facility] Valproic Acid, Total 95 50 - 100 mcg/mL LAB CHEMISTRY METHOD 05/14/2025 9:04 AM EDT [facility] Blood Venous blood specimen / Unknown Venipuncture / Unknown 05/13/2025 7:32 PM EDT 05/13/2025 7:53 PM EDT us Bettie Stoner MD LAB BLOOD ORDERABLES Final Res ult Performing Organization Address City/[facility]/ZIP Co de Phone Number [facility] [address] [place] [address], [place] [phone] * Basic metabolic panel (05/13/2025 7:32 PM EDT) [facility] Sodium 137 133 - 145 mmol/L LAB CHEMISTRY METHOD 05/13/2025 8:23 PM EDT [facility] Potassium 4.0 3.5 - 5.5 mmol/L LAB CHEMISTRY METHOD 05/13/2025 8:23 PM EDT [facility] Chloride 100 96 - 110 mmol/L LAB CHEMISTRY METHOD 05/13/2025 8:23 PM EDT [facility] CO2 30 21 - 32 mmol/L LAB CHEMISTRY METHOD 05/13/2025 8:23 PM EDT [facility] Anion Gap 7 3 - 11 LAB CHEMISTRY METHOD 05/13/2025 8:23 PM EDT [facility] Glucose 88 70 - 100 mg/dL LAB CHEMISTRY METHOD 05/13/2025 8:23 PM EDT [facility] BUN 7 5 - 25 mg/dL LAB CHEMISTRY METHOD 05/13/2025 8:23 PM EDT [facility] Creatinine 0.72 0.50 - 1.10 mg/dL LAB CHEMISTRY METHOD 05/13/2025 8:23 PM EDT [facility] eGFR 96 >=60 mL/min/1. 73m2 LAB CHEMISTRY METHOD 05/13/2025 8:23 PM EDT [facility] Comment:Calculation based on the Chronic Kidney Disease Epidemiology Collaboration (CKD-EPI) equation refit without adjustment for race. 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
--- OUTSIDE RECORDS SUMMARY | 2025-06-19 15:19 | XMS_ITS | Continuity of Care Document ---
Author Organization [facility] Address [address] [place] [address] Phone [phone] Social History Type Date Description Comments Sex Female Sex Unknown Medical Devices Description No Information Available Encounters Description No Information Available Assessments Description No Information Available Plan of Treatment No Information Available Functional Status Description No Information Available Mental Status Description No Information Available Referrals Description No Information Available
--- OUTSIDE RECORDS SUMMARY | 2025-06-19 15:19 | XMS_ITS | Encounter Summary ---
Author Organization [facility] Address [address] [address] Phone Care Team Providers Care Core Cleaner Name Role Phone Jose Garcia MD Primary Care Provider +1- [phone] Jose Garcia MD Primary Care Provider +1- [phone] Encounter Details Date Type Department Care Team (Late st Contact Info) Description 11/25/2017 Procedure Pass [facility], Ct Scan - [address] [address] Social History Tobacco Use Types Packs/Day Years [...] on filedocumented in this encounter Care Teams Core Cleaner Relationship Specialty Start Date End Date Jose Garcia MD PCP - General 07/26/17 03/05/19 Jose Garcia MD PCP - General Internal Medicine 03/06/19 documented as of this encounter Additional Source Comments The information contained in this document represents components of the legal health record. It is not the complete legal health record.[facility]
== END 2025-06-19 12:45 | disposition home or self-care (01) ==
LOC: HO.HGI 12:11
PROVIDERS: Visit Provider Nurse Practitioner
DX: K22.0 Achalasia of cardia (principal); R13.10 Dysphagia, unspecified; K21.00 Gastro-esophageal reflux disease with esophagitis, without bleeding; D12.6 Benign neoplasm of colon, unspecified
CPT/HCPCS: 99213

== ENCOUNTER → 2025-06-19 12:10 | Outpatient (BNVA) | payer MEDICARE, MEDICAID, SELFPAY | PROVIDERS: Visit Provider Nurse Practitioner | DX: K22.4 Dyskinesia of esophagus (principal); R13.10 Dysphagia, unspecified; K21.00 Gastro-esophageal reflux disease with esophagitis, without bleeding; D12.6 Benign neoplasm of colon, unspecified | CPT/HCPCS: 99212 ==

== ENCOUNTER 2025-06-21 10:15 | Outpatient (REF) | payer MEDICARE, MEDICAID, SELFPAY ==
--- OUTSIDE RECORDS SUMMARY | 2025-06-21 11:40 | XMS_ITS | Clinical Summary ---
Author Organization [facility] Address [address] [address] Phone Care Team Providers Care Brick Burner Head Name Role Phone Jose Garcia MD Primary Care Provider +1- [phone] Allergies Active Allergy Reactions Criticality Noted Date [...] Insurance [place] [id number] MEDICARE PART A & B MEDICARE PART A & B MEDICARE PART A & B MEDICARE PART A & B MEDICARE PART A & B MEDICARE PART A & B MEDICARE PART A & B MEDICARE PART A & B Care Teams Brick Burner Head Relationship Specialty Start Date End Date Jose Garcia MD [email or web address] PCP - General Internal Medicine 03/06/19 Additional Source Comments The information contained in this document represents components of the legal health record. It is not the complete legal health record.[facility]
--- OUTSIDE RECORDS SUMMARY | 2025-06-21 11:40 | XMS_ITS | Clinical Summary ---
Author Organization [facility] Address [address] [place] [address] Phone Care Team Providers Care Manager Relocation Name Role Phone MarianalbaroSrikanth NP Primary Care Provider Allergies No known active allergies Encounters Date Type Department Care Team Description 05/13/2025 7:10 PM EDT - 05/14/2025 10:06 AM EDT Emergency [facility] [address] [place] [address] Srikanth Cornejo MD Kokkinos, Erika, MD Gordon, Ruth, MD Breakthrough seizure (CMS/HCC V24, CMS/[facility] V28) (Primary Dx); Hypomagnesemia Discharge Disposition: Home [...] reflex microscopic (05/14/2025 5:21 AM EDT) Specific [place] Urine 1.008 1.003 - 1.030 LAB URINALYSIS - AUTOMATED METHOD 05/14/2025 5:[address] [facility] pH, Urine 7.0 5.0 - 8.0 pH LAB URINALYSIS - AUTOMATED METHOD 05/14/2025 5:50 AM [facility] Leukocytes, Urine Negative Negative LAB URINALYSIS - AUTOMATED METHOD 05/14/2025 5:50 AM [facility] Nitrite, Urine Negative Negative LAB URINALYSIS - AUTOMATED METHOD 05/14/2025 5:50 AM [facility] Protein, Urine Negative <=Trace mg/dL LAB URINALYSIS - AUTOMATED METHOD 05/14/2025 5:50 AM [facility] Glucose, Urine Negative Negative mg/dL LAB URINALYSIS - AUTOMATED METHOD 05/14/2025 5:50 AM [facility] Ketones, Urine Negative Negative mg/dL LAB URINALYSIS - AUTOMATED METHOD 05/14/2025 5:50 AM [facility] Urobilinogen, Urine 0.2 0.2 - 1.0 mg/dL LAB URINALYSIS - AUTOMATED METHOD 05/14/2025 5:50 AM [facility] Bilirubin, Urine Negative Negative LAB URINALYSIS - AUTOMATED METHOD 05/14/2025 5:50 AM [facility] Blood, Urine Negative Negative LAB URINALYSIS - AUTOMATED METHOD 05/14/2025 5:50 AM [facility] Urine Urine specimen obtained by clean catch procedure / Unknown Non-blood Collection / Unknown 05/14/2025 5:21 AM EDT 05/14/2025 5:36 AM EDT us Srikanth Cornejo MD LAB URINE ORDERABLES Final Resul t [facility] [address] [place] [address], * [place] top urine tube (05/14/2025 5:21 AM EDT) Extra Tube Hold for add-ons. 05/14/2025 7:01 AM EDT [facility] Comment:Auto resulted. Urine Urine specimen obtained by clean catch procedure / Unknown 05/14/2025 5:21 AM EDT 05/14/2025 5:36 AM EDT Srikanth Cornejo MD LAB URINE ORDERABLES Final Resul t Performing Organization Address [facility] Co de Phone Number [facility] [address] [place] [address], [place] [phone] * Yellow urine no additive (05/14/2025 5:21 AM EDT) Extra Tube Hold for add-ons. 05/14/2025 7:01 AM EDT [facility] Comment:Auto resulted. Urine Urine specimen obtained by clean catch procedure / Unknown 05/14/2025 5:21 AM EDT 05/14/2025 5:36 AM EDT Srikanth Cornejo MD LAB URINE ORDERABLES Final Resul t Performing Organization Address [facility] de Phone Number [facility] [address] [place] [address], [place] [phone] * Valproic acid level, total and free [...] LAB Comment: Test Performed by Vinicio Bangura, [facility], [address] [place] [address] Dirk Mayen M.D., Ph.D., Director of Laboratories , [place] [id number] Blood Venous blood specimen / Unknown Venipuncture / Unknown 05/14/2025 3:06 AM EDT 05/14/2025 3:13 AM EDT us Bettie Stoner MD LAB BLOOD ORDERABLES Final Res ult ISABEL WHITE [address] [place] [address] * CT Head wo Contrast [...] Signed Date: 05/14/2025 07:21 ET Workstation ID: [id number] Transcribed By: Self Edit Transcribed Date: 05/14/2025 [...] Signed Date: 05/14/2025 07:21 ET Workstation ID: [id number] Transcribed By: Self Edit Transcribed Date: 05/14/2025 07:19 ET Srikanth Cornejo MD IMG XR PROCEDURES Final Result * (ABNORMAL) CBC auto differential (05/13/2025 7:32 PM EDT) WBC 4.9 4.8 - 10.8 K/mcL LAB HEMETOLOGY METHOD 05/13/2025 7:57 PM EDT [facility] RBC 4.20 3.80 - 4.80 M/mcL LAB HEMETOLOGY METHOD 05/13/2025 7:57 PM EDT [facility] Hemoglobin 12.4 11.5 - 16.0 g/dL LAB HEMETOLOGY METHOD 05/13/2025 7:57 PM EDT [facility] Hematocrit 39.6 35.0 - 47.0 % LAB HEMETOLOGY METHOD 05/13/2025 7:57 PM EDT [facility] MCV 94.7 79.0 - 98.0 FL LAB HEMETOLOGY METHOD 05/13/2025 7:57 PM EDT [facility] MCH 29.7 27.0 - 32.0 pcg LAB HEMETOLOGY METHOD 05/13/2025 7:57 PM EDT [facility] MCHC 31.3(L) 32.0 - 37.0 g/dL LAB HEMETOLOGY METHOD 05/13/2025 7:57 PM EDT [facility] RDW 15.0 11.0 - 15.0 % LAB HEMETOLOGY METHOD 05/13/2025 7:57 PM EDT [facility] Platelets 249 130 - 400 K/mcL LAB HEMETOLOGY METHOD 05/13/2025 7:57 PM EDT [facility] MPV 10.2 7.0 - 11.0 FL LAB HEMETOLOGY METHOD [facility]13[facility]25 7[facility] NRBC 0.0 <1.0 % LAB HEMETOLOGY METHOD 05/13/2025 7:57 PM [facility] NRBC Absolute 0.00 <0.10 K/mcL LAB HEMETOLOGY METHOD 05/13/2025 7:57 PM [facility] Neutrophils Relative 39.5 % LAB HEMETOLOGY METHOD 05/13/2025 7:57 PM [facility] Lymphocytes Relative 44.1 % LAB HEMETOLOGY METHOD 05/13/2025 7:57 PM [facility] Monocytes Relative 11.5 % LAB HEMETOLOGY METHOD 05/13/2025 7:57 PM [facility] Eosinophils Relative 3.5 % LAB HEMETOLOGY METHOD 05/13/2025 7:57 PM [facility] Basophils Relative 0.8 % LAB HEMETOLOGY METHOD 05/13/2025 7:57 PM [facility] Immature Granulocytes Relative 0.6 % LAB HEMETOLOGY METHOD 05/13/2025 7:57 PM [facility] Neutrophils Absolute 1.93 1.50 - 7.00 K/mcL LAB HEMETOLOGY METHOD 05/13/2025 7:57 PM [facility] Lymphocytes Absolute 2.15 1.00 - 5.00 K/mcL LAB HEMETOLOGY METHOD 05/13/2025 7:57 PM [facility] Monocytes Absolute 0.56 0.20 - 1.00 K/mcL LAB HEMETOLOGY METHOD 05/13/2025 7:57 PM [facility] Eosinophils Absolute 0.17 0.00 - 0.50 K/mcL LAB HEMETOLOGY METHOD 05/13/2025 7:57 PM [facility] Basophils Absolute 0.04 0.00 - 0.20 K/[facility] LAB HEMETOLOGY METHOD 05/13/2025 7:57 PM EDT [facility] Immature Granulocytes Absolute 0.03 0.00 - 0.03 K/[facility] LAB HEMETOLOGY METHOD 05/13/2025 7:57 PM EDT [facility] Blood Venous blood specimen / Unknown Venipuncture / Unknown 05/13/2025 7:32 PM EDT 05/13/2025 7:53 PM EDT Srikanth Cornejo MD LAB BLOOD ORDERABLES Final Resul t Performing Organization Address [facility] Co de Phone Number [facility] [address] [place] [address], [place] [phone] * Prolactin (05/13/2025 7:32 PM EDT) Prolactin 79.00 See Comment ng/mL LAB CHEMISTRY METHOD 05/13/2025 8:27 PM EDT [facility] Comment: Prolactin Reference Ranges (ng/mL) Non 2.2 - 30.3 8.1 - 347.6 Postmenopausal 0.7 - 31.5 Blood Venous blood specimen / Unknown Venipuncture / Unknown 05/13/2025 7:32 PM EDT 05/13/2025 7:53 PM EDT us Srikanth Cornejo MD LAB BLOOD ORDERABLES Final Resul t Performing Organization Address City/[facility]/ZIP Co de Phone Number [facility] [address] [place] [address], [place] [phone] * (ABNORMAL) Magnesium (05/13/2025 7:32 PM EDT) Magnesium 1.7(L) 1.9 - 2.6 mg/dL LAB CHEMISTRY METHOD 05/13/2025 8:23 PM EDT [facility] Blood Venous blood specimen / Unknown Venipuncture / Unknown 05/13/2025 7:32 PM EDT 05/13/2025 7:53 PM EDT us Srikanth Cornejo MD LAB BLOOD ORDERABLES Final Resul t Performing Organization Address City/[facility]/ZIP Co de Phone Number [facility] [address] [place] [address], [place] [phone] * Valproic acid level, total (05/13/2025 7:32 PM EDT) Pathologist [facility] Valproic Acid, Total 95 50 - 100 mcg/mL LAB CHEMISTRY METHOD 05/14/2025 9:04 AM EDT [facility] Blood Venous blood specimen / Unknown Venipuncture / Unknown 05/13/2025 7:32 PM EDT 05/13/2025 7:53 PM EDT us Bettie Stoner MD LAB BLOOD ORDERABLES Final Res ult Performing Organization Address City/[facility]/ZIP Co de Phone Number [facility] [address] [place] [address], [place] [phone] * Basic metabolic panel (05/13/2025 7:32 PM EDT) [facility] Sodium 137 133 - 145 mmol/L LAB CHEMISTRY METHOD 05/13/2025 8:23 PM EDT [facility] Potassium 4.0 3.5 - 5.5 mmol/L LAB CHEMISTRY METHOD 05/13/2025 8:23 PM EDT [facility] Chloride 100 96 - 110 mmol/L LAB CHEMISTRY METHOD 05/13/2025 8:23 PM EDT [facility] CO2 30 21 - 32 mmol/L LAB CHEMISTRY METHOD 05/13/2025 8:23 PM EDT [facility] Anion Gap 7 3 - 11 LAB CHEMISTRY METHOD 05/13/2025 8:23 PM EDT [facility] Glucose 88 70 - 100 mg/dL LAB CHEMISTRY METHOD 05/13/2025 8:23 PM EDT [facility] BUN 7 5 - 25 mg/dL LAB CHEMISTRY METHOD 05/13/2025 8:23 PM EDT [facility] Creatinine 0.72 0.50 - 1.10 mg/dL LAB CHEMISTRY METHOD 05/13/2025 8:23 PM EDT [facility] eGFR 96 >=60 mL/min/1. 73m2 LAB CHEMISTRY METHOD 05/13/2025 8:23 PM EDT [facility] Comment:Calculation based on the Chronic Kidney Disease Epidemiology Collaboration (CKD-EPI) equation refit without adjustment for race. 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
--- OUTSIDE RECORDS SUMMARY | 2025-06-21 11:40 | XMS_ITS | Encounter Summary ---
Author Organization [facility] Address [address] [place] [address] Phone Care Team Providers Care Spinner Hydraulic Name Role Phone Jose Garcia MD Primary Care Provider +1- [phone] Encounter Details Date Type Department Care Team (Late st Contact Info) Description 02/21/2020 Ancillary Orders [facility],Outside Imaging [address] [place] [address] System, Provider Not In, [facility] [address] [address] Social History Tobacco Use Types Packs/Day Years [...] on filedocumented in this encounter Care Teams Spinner Hydraulic Relationship Specialty Start Date End Date Jose Garcia MD [email or web address] PCP - General Internal Medicine 03/06/19 documented as of this encounter Additional Source Comments The information contained in this document represents components of the legal health record. It is not the complete legal health record.[facility]
--- OUTSIDE RECORDS SUMMARY | 2025-06-21 11:40 | XMS_ITS | Encounter Summary ---
Author Organization [facility] Address [address] [address] Phone Care Team Providers Care Soap Inspector Name Role Phone Jose Garcia MD Primary Care Provider +1- [phone] Jose Garcia MD Primary Care Provider +1- [phone] Encounter Details Date Type Department Care Team (Late st Contact Info) Description 11/25/2017 Procedure Pass [facility], Ct Scan - [address] [address] Social History Tobacco Use Types Packs/Day Years [...] on filedocumented in this encounter Care Teams Soap Inspector Relationship Specialty Start Date End Date Jose Garcia MD PCP - General 07/26/17 03/05/19 Jose Garcia MD PCP - General Internal Medicine 03/06/19 documented as of this encounter Additional Source Comments The information contained in this document represents components of the legal health record. It is not the complete legal health record.[facility]
--- OUTSIDE RECORDS SUMMARY | 2025-06-21 11:40 | XMS_ITS | Continuity of Care Document ---
Author Organization [facility] Address [address] [place] [address] Phone [phone] Social History Type Date Description Comments Sex Female Sex Unknown Medical Devices Description No Information Available Encounters Description No Information Available Assessments Description No Information Available Plan of Treatment No Information Available Functional Status Description No Information Available Mental Status Description No Information Available Referrals Description No Information Available
== END 2025-06-21 10:16 | disposition home or self-care (01) ==
LOC: HO.SH 10:15
PROVIDERS: Visit Provider Nurse Practitioner Family
DX: Z01.118 Encounter for examination of ears and hearing with other abnormal findings (principal); H90.A22 Sensorineural hearing loss, unilateral, left ear, with restricted hearing on the contralateral side; H90.A31 Mixed conductive and sensorineural hearing loss, unilateral, right ear with restricted hearing on the contralateral side
CPT/HCPCS: 92557; 92567

== ENCOUNTER → 2025-06-26 10:38 | Outpatient (REF) | payer MEDICARE, MEDICAID, SELFPAY ==
--- OUTSIDE RECORDS SUMMARY | 2025-06-26 13:10 | XMS_ITS | Continuity of Care Document ---
Author Organization [facility] Address [address] [place] [address] Phone [phone] Social History Type Date Description Comments Sex Female Sex Unknown Medical Devices Description No Information Available Encounters Description No Information Available Assessments Description No Information Available Plan of Treatment No Information Available Functional Status Description No Information Available Mental Status Description No Information Available Referrals Description No Information Available
--- OUTSIDE RECORDS SUMMARY | 2025-06-26 13:10 | XMS_ITS | Encounter Summary ---
Author Organization [facility] Address [address] [address] Phone Care Team Providers Care Ergonomic Specialist Name Role Phone Jose Garcia MD Primary Care Provider +1- [phone] Jose Garcia MD Primary Care Provider +1- [phone] Encounter Details Date Type Department Care Team (Late st Contact Info) Description 11/25/2017 Procedure Pass [facility], Ct Scan - [address] [address] Social History Tobacco Use Types Packs/Day Years [...] on filedocumented in this encounter Care Teams Ergonomic Specialist Relationship Specialty Start Date End Date Jose Garcia MD PCP - General 07/26/17 03/05/19 Jose Garcia MD PCP - General Internal Medicine 03/06/19 documented as of this encounter Additional Source Comments The information contained in this document represents components of the legal health record. It is not the complete legal health record.[facility]
--- OUTSIDE RECORDS SUMMARY | 2025-06-26 13:10 | XMS_ITS | Clinical Summary ---
Author Organization [facility] Address [address] [place] [address] Phone Care Team Providers Care Weir Fisher Name Role Phone MarianalbaroSrikanth NP Primary Care Provider Allergies No known active allergies Encounters Date Type Department Care Team Description 05/13/2025 7:10 PM EDT - 05/14/2025 10:06 AM EDT Emergency [facility] Emergency [address] [place] [address] Srikanth Cornejo MD Kokkinos, Erika, MD Gordon, Ruth, MD Breakthrough seizure (CMS/HCC V24, CMS/[facility] V28) (Primary Dx); Hypomagnesemia Discharge Disposition: Home [...] reflex microscopic (05/14/2025 5:21 AM EDT) Specific [place] Urine 1.008 1.003 - 1.030 LAB URINALYSIS - AUTOMATED METHOD 05/14/2025 5:50 AM EDT [facility] pH, Urine 7.0 5.0 - 8.0 pH LAB URINALYSIS - AUTOMATED METHOD 05/14/2025 5:50 AM [facility] Leukocytes, Urine Negative Negative LAB URINALYSIS - AUTOMATED METHOD 05/14/2025 5:50 AM [facility] Nitrite, Urine Negative Negative LAB URINALYSIS - AUTOMATED METHOD 05/14/2025 5:50 AM [facility] Protein, Urine Negative <=Trace mg/dL LAB URINALYSIS - AUTOMATED METHOD 05/14/2025 5:50 AM [facility] Glucose, Urine Negative Negative mg/dL LAB URINALYSIS - AUTOMATED METHOD 05/14/2025 5:50 AM [facility] Ketones, Urine Negative Negative mg/dL LAB URINALYSIS - AUTOMATED METHOD 05/14/2025 5:50 AM [facility] Urobilinogen, Urine 0.2 0.2 - 1.0 mg/dL LAB URINALYSIS - AUTOMATED METHOD 05/14/2025 5:50 AM [facility] Bilirubin, Urine Negative Negative LAB URINALYSIS - AUTOMATED METHOD 05/14/2025 5:50 AM [facility] Blood, Urine Negative Negative LAB URINALYSIS - AUTOMATED METHOD 05/14/2025 5:50 AM [facility] Urine Urine specimen obtained by clean catch procedure / Unknown Non-blood Collection / Unknown 05/14/2025 5:21 AM EDT 05/14/2025 5:36 AM EDT us Srikanth Cornejo MD LAB URINE ORDERABLES Final Resul t [facility] [address] [place] [address], * [place] top urine tube (05/14/2025 5:21 AM EDT) Extra Tube Hold for add-ons. 05/14/2025 7:01 AM EDT [facility] Comment:Auto resulted. Urine Urine specimen obtained by clean catch procedure / Unknown 05/14/2025 5:21 AM EDT 05/14/2025 5:36 AM EDT Srikanth Cornejo MD LAB URINE ORDERABLES Final Resul t Performing Organization Address [facility] Co de Phone Number [facility] [address] [place] [address], [place] [phone] * Yellow urine no additive (05/14/2025 5:21 AM EDT) Extra Tube Hold for add-ons. 05/14/2025 7:01 AM EDT [facility] Comment:Auto resulted. Urine Urine specimen obtained by clean catch procedure / Unknown 05/14/2025 5:21 AM EDT 05/14/2025 5:36 AM EDT Srikanth Cornejo MD LAB URINE ORDERABLES Final Resul t Performing Organization Address [facility] de Phone Number [facility] [address] [place] [address], [place] [phone] * Valproic acid level, total and free [...] LAB Comment: Test Performed by Vinicio Bangura, [facility], [address] [place] [address] Dirk Mayen M.D., Ph.D., Director of Laboratories , [place] [id number] Blood Venous blood specimen / Unknown Venipuncture / Unknown 05/14/2025 3:06 AM EDT 05/14/2025 3:13 AM EDT us Bettie Stoner MD LAB BLOOD ORDERABLES Final Res ult ISABEL WHITE [address] [place] [address] * CT Head wo Contrast [...] Signed Date: 05/14/2025 07:21 ET Workstation ID: [id number] Transcribed By: Self Edit Transcribed Date: 05/14/2025 [...] Signed Date: 05/14/2025 07:21 ET Workstation ID: [id number] Transcribed By: Self Edit Transcribed Date: 05/14/2025 07:19 ET Srikanth Cornejo MD IMG XR PROCEDURES Final Result * (ABNORMAL) CBC auto differential (05/13/2025 7:32 PM EDT) WBC 4.9 4.8 - 10.8 K/mcL LAB HEMETOLOGY METHOD 05/13/2025 7:57 PM EDT [facility] RBC 4.20 3.80 - 4.80 M/mcL LAB HEMETOLOGY METHOD 05/13/2025 7:57 PM EDT [facility] Hemoglobin 12.4 11.5 - 16.0 g/dL LAB HEMETOLOGY METHOD 05/13/2025 7:57 PM EDT [facility] Hematocrit 39.6 35.0 - 47.0 % LAB HEMETOLOGY METHOD 05/13/2025 7:57 PM EDT [facility] MCV 94.7 79.0 - 98.0 FL LAB HEMETOLOGY METHOD 05/13/2025 7:57 PM EDT [facility] MCH 29.7 27.0 - 32.0 pcg LAB HEMETOLOGY METHOD 05/13/2025 7:57 PM EDT [facility] MCHC 31.3(L) 32.0 - 37.0 g/dL LAB HEMETOLOGY METHOD 05/13/2025 7:57 PM EDT [facility] RDW 15.0 11.0 - 15.0 % LAB HEMETOLOGY METHOD 05/13/2025 7:57 PM EDT [facility] Platelets 249 130 - 400 K/mcL LAB HEMETOLOGY METHOD 05/13/2025 7:57 PM EDT [facility] MPV 10.2 7.0 - 11.0 FL LAB HEMETOLOGY METHOD 05/13[facility]25 7:[facility] NRBC 0.0 <1.0 % LAB HEMETOLOGY METHOD 05/13/2025 7:57 PM [facility] NRBC Absolute 0.00 <0.10 K/mcL LAB HEMETOLOGY METHOD 05/13/2025 7:57 PM [facility] Neutrophils Relative 39.5 % LAB HEMETOLOGY METHOD 05/13/2025 7:57 PM [facility] Lymphocytes Relative 44.1 % LAB HEMETOLOGY METHOD 05/13/2025 7:57 PM [facility] Monocytes Relative 11.5 % LAB HEMETOLOGY METHOD 05/13/2025 7:57 PM [facility] Eosinophils Relative 3.5 % LAB HEMETOLOGY METHOD 05/13/2025 7:57 PM [facility] Basophils Relative 0.8 % LAB HEMETOLOGY METHOD 05/13/2025 7:57 PM [facility] Immature Granulocytes Relative 0.6 % LAB HEMETOLOGY METHOD 05/13/2025 7:57 PM [facility] Neutrophils Absolute 1.93 1.50 - 7.00 K/mcL LAB HEMETOLOGY METHOD 05/13/2025 7:57 PM [facility] Lymphocytes Absolute 2.15 1.00 - 5.00 K/mcL LAB HEMETOLOGY METHOD 05/13/2025 7:57 PM [facility] Monocytes Absolute 0.56 0.20 - 1.00 K/mcL LAB HEMETOLOGY METHOD 05/13/2025 7:57 PM [facility] Eosinophils Absolute 0.17 0.00 - 0.50 K/mcL LAB HEMETOLOGY METHOD 05/13/2025 7:57 PM [facility] Basophils Absolute 0.04 0.00 - 0.20 K/[facility] LAB HEMETOLOGY METHOD 05/13/2025 7:57 PM EDT [facility] Immature Granulocytes Absolute 0.03 0.00 - 0.03 K/[facility] LAB HEMETOLOGY METHOD 05/13/2025 7:57 PM EDT [facility] Blood Venous blood specimen / Unknown Venipuncture / Unknown 05/13/2025 7:32 PM EDT 05/13/2025 7:53 PM EDT Srikanth Cornejo MD LAB BLOOD ORDERABLES Final Resul t Performing Organization Address [facility] Co de Phone Number [facility] [address] [place] [address], [place] [phone] * Prolactin (05/13/2025 7:32 PM EDT) Prolactin 79.00 See Comment ng/mL LAB CHEMISTRY METHOD 05/13/2025 8:27 PM EDT [facility] Comment: Prolactin Reference Ranges (ng/mL) Non 2.2 - 30.3 8.1 - 347.6 Postmenopausal 0.7 - 31.5 Blood Venous blood specimen / Unknown Venipuncture / Unknown 05/13/2025 7:32 PM EDT 05/13/2025 7:53 PM EDT us Srikanth Cornejo MD LAB BLOOD ORDERABLES Final Resul t Performing Organization Address City/[facility]/ZIP Co de Phone Number [facility] [address] [place] [address], [place] [phone] * (ABNORMAL) Magnesium (05/13/2025 7:32 PM EDT) Magnesium 1.7(L) 1.9 - 2.6 mg/dL LAB CHEMISTRY METHOD 05/13/2025 8:23 PM EDT [facility] Blood Venous blood specimen / Unknown Venipuncture / Unknown 05/13/2025 7:32 PM EDT 05/13/2025 7:53 PM EDT us Srikanth Cornejo MD LAB BLOOD ORDERABLES Final Resul t Performing Organization Address City/[facility]/ZIP Co de Phone Number [facility] [address] [place] [address], [place] [phone] * Valproic acid level, total (05/13/2025 7:32 PM EDT) Pathologist [facility] Valproic Acid, Total 95 50 - 100 mcg/mL LAB CHEMISTRY METHOD 05/14/2025 9:04 AM EDT [facility] Blood Venous blood specimen / Unknown Venipuncture / Unknown 05/13/2025 7:32 PM EDT 05/13/2025 7:53 PM EDT us Bettie Stoner MD LAB BLOOD ORDERABLES Final Res ult Performing Organization Address City/[facility]/ZIP Co de Phone Number [facility] [address] [place] [address], [place] [phone] * Basic metabolic panel (05/13/2025 7:32 PM EDT) [facility] Sodium 137 133 - 145 mmol/L LAB CHEMISTRY METHOD 05/13/2025 8:23 PM EDT [facility] Potassium 4.0 3.5 - 5.5 mmol/L LAB CHEMISTRY METHOD 05/13/2025 8:23 PM EDT [facility] Chloride 100 96 - 110 mmol/L LAB CHEMISTRY METHOD 05/13/2025 8:23 PM EDT [facility] CO2 30 21 - 32 mmol/L LAB CHEMISTRY METHOD 05/13/2025 8:23 PM EDT [facility] Anion Gap 7 3 - 11 LAB CHEMISTRY METHOD 05/13/2025 8:23 PM EDT [facility] Glucose 88 70 - 100 mg/dL LAB CHEMISTRY METHOD 05/13/2025 8:23 PM EDT [facility] BUN 7 5 - 25 mg/dL LAB CHEMISTRY METHOD 05/13/2025 8:23 PM EDT [facility] Creatinine 0.72 0.50 - 1.10 mg/dL LAB CHEMISTRY METHOD 05/13/2025 8:23 PM EDT [facility] eGFR 96 >=60 mL/min/1. 73m2 LAB CHEMISTRY METHOD 05/13/2025 8:23 PM EDT [facility] Comment:Calculation based on the Chronic Kidney Disease Epidemiology Collaboration (CKD-EPI) equation refit without adjustment for race. BUN/Creatinine Ratio 9.7 LAB CHEMISTRY METHOD 05/13/2025 8:23 PM EDT [facility] Calcium 8.7 8.5 - 10.5 mg/dL LAB CHEMISTRY METHOD 05/13/2025 8:23 PM EDT [facility] Blood Venous blood specimen / Unknown Venipuncture / Unknown 05/13/2025 7:32 PM EDT 05/13/2025 7:53 PM EDT us Srikanth Cornejo MD LAB BLOOD ORDERABLES Final Resul t [facility] [address] [place] [address], from Last 3 Months Insurance MEDICARE [place]ICAID - [place] Advance Directives Documents on File Type Date Recorded Patient Ad Copy Writer Expl anation Health Care Decision (hx) 09/18/2020 AD LAUREANO DIRECTIVE Health Care Decision (hx) 09/18/2020 AD LAUREANO DIRECTIVE Health Care Decision (hx) 09/18/2020 AD LAUREANO DIRECTIVE Care Teams Weir Fisher Relationship Specialty Start Date End Date Srikanth Palomares NP [address] [place], [place] PCP - General Family Medicine 05/13/25
--- OUTSIDE RECORDS SUMMARY | 2025-06-26 13:10 | XMS_ITS | Encounter Summary ---
Author Organization [facility] Address [address] [place] [address] Phone Care Team Providers Care Watch Hairspring Assembler Name Role Phone Jose Garcia MD Primary Care Provider +1- [phone] Encounter Details Date Type Department Care Team (Late st Contact Info) Description 02/21/2020 Ancillary Orders [facility],Outside Imaging [address] [place], [place] [id number] System, Provider Not In, [facility] [address] [address] Social History Tobacco Use Types Packs/Day Years [...] on filedocumented in this encounter Care Teams Watch Hairspring Assembler Relationship Specialty Start Date End Date Jose Garcia MD [email or web address] PCP - General Internal Medicine 03/06/19 documented as of this encounter Additional Source Comments The information contained in this document represents components of the legal health record. It is not the complete legal health record.[facility]
--- OUTSIDE RECORDS SUMMARY | 2025-06-26 13:10 | XMS_ITS | Clinical Summary ---
Author Organization [facility] Address [address] [address] Phone Care Team Providers Care Lens Dotter Name Role Phone Jose Garcia MD Primary Care Provider +1- [phone] Allergies Active Allergy Reactions Criticality Noted Date [...] Insurance [place] [id number] MEDICARE PART A & B MEDICARE PART A & B MEDICARE PART A & B MEDICARE PART A & B MEDICARE PART A & B MEDICARE PART A & B MEDICARE PART A & B MEDICARE PART A & B Care Teams Lens Dotter Relationship Specialty Start Date End Date Jose Garcia MD [email or web address] PCP - General Internal Medicine 03/06/19 Additional Source Comments The information contained in this document represents components of the legal health record. It is not the complete legal health record.[facility]
== END ==
LOC: HO.SL 10:38
PROVIDERS: PCP Nurse Practitioner Family; Visit Provider Nurse Practitioner Family
DX: R40.0 Somnolence (principal)
CPT/HCPCS: 95806

== ENCOUNTER → 2025-06-26 10:49 | Outpatient (BNV) | payer MEDICARE, MEDICAID, SELFPAY | PROVIDERS: PCP Nurse Practitioner Family; Visit Provider Psychiatry & Neurology Neurology | DX: G47.10 Hypersomnia, unspecified (principal) | CPT/HCPCS: 95806 ==

== ENCOUNTER 2025-07-01 15:33 | Outpatient (REF) | payer MEDICARE, MEDICAID, SELFPAY ==
--- NOTE | ~2025-07-01 | US_ITS ---
EXAMINATION: US RETROPERITONEAL COMPLETE (RENAL) CLINICAL INFORMATION: Incontinence COMPARISON: Ultrasound abdomen 04/26/2025 TECHNIQUE: Real-time imaging of the kidneys and bladder. FINDINGS: RIGHT KIDNEY: 9.0 x 5.2 x 4.7 cm (SAG x AP x TRV). The kidney is normal in size, contour, and echogenicity. Renal cortical thickness is normal. No calculi or focal parenchymal lesions. No hydronephrosis. LEFT KIDNEY: 8.4 x 5.6 x 5.1 cm (SAG x AP x TRV). The kidney is normal in size, contour, and echogenicity. Renal cortical thickness is normal. No calculi or focal parenchymal lesions. No hydronephrosis. BLADDER: Well distended and normal. Left ureteral jets visualized. Right ureteral jet not seen. Prevoid bladder volume is 231 mL. Postvoid bladder volume is 139 mL. Incidental finding of fluid seen in the endometrial canal. US/US retroperitoneal comp IMPRESSION: Unremarkable renal ultrasound. Small post void residual bladder volume. Electronically signed by: Karri Adams MD 07/02/2025 06:56 AM EDT
== END 2025-07-01 15:34 | disposition home or self-care (01) ==
LOC: HO.US 15:33
PROVIDERS: PCP Nurse Practitioner Family; Visit Provider Nurse Practitioner Family
DX: R32 Unspecified urinary incontinence (principal)
CPT/HCPCS: 76770

== ENCOUNTER → 2025-07-01 15:35 | Outpatient (BNV) | payer MEDICARE, MEDICAID, SELFPAY | PROVIDERS: PCP Nurse Practitioner Family; Visit Provider Radiology Diagnostic Radiology | DX: R32 Unspecified urinary incontinence (principal) | CPT/HCPCS: 76770 ==

== ENCOUNTER 2025-07-02 10:21 | Outpatient (REF) | payer MEDICARE, MEDICAID, SELFPAY | END 2025-07-02 10:22 | disposition home or self-care (01) | LOC: HO.LAB 10:21 | PROVIDERS: PCP Nurse Practitioner Family; Visit Provider Nurse Practitioner Family | DX: N32.81 Overactive bladder (principal); R31.29 Other microscopic hematuria; R39.15 Urgency of urination; R32 Unspecified urinary incontinence; Z13.89 Encounter for screening for other disorder | CPT/HCPCS: 81003; 88112; 99212 ==

== ENCOUNTER 2025-07-02 10:21 | Outpatient (AMB) | payer MEDICARE, MEDICAID, SELFPAY ==
--- NOTE | 2025-07-02 10:23 | MHC.OFFVIS ---
Intake Visit Reasons: 2m/US Intake Note: Patient is present for 2M/US Urology Medication:MIRABEGRON Antibiotic Allergy:NONE Blood Thinner:ASPIRIN Radial Drill Operator Required: No Allergies latex (LATEX) Allergy (Intermediate, Verified 07/02/25 13:28) RASH morphine (MORPHINE) Allergy (Intermediate, Verified 07/02/25 13:28) SWELLING alendronate sodium (From FOSAMAX) Allergy (Unknown, Verified 07/02/25 13:28) PER H+P levetiracetam (From KEPPRA) Adverse Reaction (Intermediate, Verified 07/02/25 13:28) DICKENS phenytoin (From DILANTIN) Adverse Reaction (Intermediate, Verified 07/02/25 13:28) CANT FUNCTION Medication List - Last Reconciled 07/02/25 by PARVIN Perla-IQRA albuterol sulfate 90 mcg/actuation (Ventolin HFA) 2 puffs inhalation Q6H PRN Arnuity Ellipta 100 mcg/actuation (fluticasone furoate) 1 inh inhalation DAILY NS aspirin 81 mg PO DAILY 90 days atorvastatin 80 mg PO DAILY 90 days [bedside commode As directed] calcium carb, citrate-vit D3 600 mg-12.5 mcg (500 unit) ER (Citracal-D3 Slow Release) 1 tab PO DAILY clonazepam mg PO [disposable brief-pull ups As directed] divalproex ER 500 mg PO TID doxepin 10 mg PO BEDTIME [elevated toilet seat As directed] ptjzzhktbht-ztwxjeqxg-emzrgamp 200-62.5-25 mcg (Trelegy Ellipta) 1 inh inhalation DAILY Forteo (teriparatide) 20 mcg (0.08 mL) subcut DAILY NS ipratropium-albuterol 0.5 mg-3 mg(2.5 mg base)/3 mL 3 mL inhalation Q6-8H PRN lansoprazole 30 mg PO BID levothyroxine 100 mcg PO DAILY loperamide 2 mg PO Q6H PRN magnesium oxide 500 mg PO DAILY memantine (Namenda) 5 mg PO QAM metoclopramide HCl 10 mg PO QID mirabegron ER (Myrbetriq) 25 mg PO DAILY 30 days nebulizers As directed for updraft treatments, with supplies nicotine (Nicoderm CQ) 1 patch transdermal DAILY pen needle, diabetic (Comfort EZ Pen [place]) As directed inject once a day pravastatin 40 mg PO DAILY primidone 50 mg PO TID sertraline 200 mg PO QAM [versa frame for toilet As directed] zolpidem 10 mg PO BEDTIME HPI Comments Details: Yuli is a pleasant 59-year-old female patient of Dr. Weiss who was accompanied by her CONFERENCE MANAGER at today's office visit. She has a past medical history of esophageal stricture, tremors, cerebral microvascular disease, hiatal hernia, nicotine dependence, lumbar sacral pain, lumbar stenosis, lumbar radiculitis, multiple pulmonary nodules, COPD, osteoporosis, depression, hyperlipidemia, hypertension, myocardial infarction status post stent placement in 2004, coronary artery disease, cerebral atrophy, and seizures. She presents to the office today for follow-up. Of note, patient was seen approximately 2 months ago as a new patient for mixed urinary incontinence at which time a retroperitoneal ultrasound was ordered for further assessment evaluation in the patient was started on Myrbetriq. In discussion with the patient today she reports no improvement in mixed urinary incontinence with 25 mg of Myrbetriq. Recent retroperitoneal ultrasound results were reviewed 07/04 bilateral kidneys are normal in size, contour, and echogenicity. No hydronephrosis, nephrolithiasis, and or renal lesions noted. Unremarkable renal ultrasound. The bladder is well distended and normal. Postvoid bladder volume 140 mL. In office urinalysis results reviewed with the patient today. We again discussed further treatment options of mixed urinary incontinence and risks and benefits of these treatment options. She does have a previous history of 3 vaginal deliveries and labors were uneventful. She continues to utilize 4-6 adult diapers per day. She denies hematuria, dysuria, foul smelling urine, flank pain, fever, and or chills. She reports she is currently living at [facility] in has trialed pelvic floor therapy with her occupational therapist and has not found this helpful. All questions were answered. She reports currently she is utilizing Shekhar and Segundo for her incontinent pull-ups. She typically receives 120 further month and wears a size medium. She otherwise offers no other issues or concerns at this time. [facility] Medical History Weakness Urinary incontinence Epigastric pain Physical deconditioning Hypomagnesemia Abdominal pain Pleuritic pain Bilateral hip pain Bilateral knee pain Esophageal stricture Screening for cervical cancer Screening for colon cancer Pain in right leg Swelling of right lower extremity Breast cancer screening, high risk patient Edema Hypoglycemia Tremor Cerebral microvascular disease Hx of hiatal hernia Tubular adenoma of colon On beta matty at home Nicotine dependence, unspecified, uncomplicated Lumbosacral pain Lumbar stenosis Lumbar radiculitis Multiple pulmonary nodules COPD (chronic obstructive pulmonary disease) Osteoporosis Hypothyroid Depression Hyperlipidemia Hypertension Myocardial infarct CAD (coronary artery disease) Intracranial arachnoid cyst Cerebral atrophy Seizure Surgical History Hx of local excision of skin lesion History of foot surgery (~2013) History of tubal ligation History of heart artery stent (~2004) History of colonoscopy (~2018) History of appendectomy S/P dilatation of esophageal stricture (~2020) History of [place] fundoplication (~2019) History of esophagogastroduodenoscopy (EGD) (~2020) Family History Father Blood clots in brain Diabetes Polio Mother Breast cancer Hiatal hernia Sister Cancer Brother Myocardial infarction Family/Other Throat cancer Stomach cancer Paternal Grandmother Cancer Social History Household Members: Other Housing: Assisted Living Facility Housing Other:: Independent Living @ [facility] Are you a primary emergency care attendant to a significant other at home: No Alcohol intake: former Comment: Quit ~2006 Patient Tobacco Use Status: Current everyday Tobacco user Tobacco use type: Cigarette Cigarette Packs Per Day: 0.5 Cigarettes Per Day: 10.0 Years Smoked: 42 e-Cigarette/Vaping Use: Never Used Second Hand Smoke Exposure: No Substance Use Type: Crack/Cocaine service: No Current occupational status: disabled Cognitive needs: Yes Hearing needs: Yes Vision needs: Yes Review of Systems Eyes Reports no additional complaints ENT Reports no additional complaints Card Reports as per HPI Resp Reports as per HPI GI Reports as per HPI Reports as per HPI Musc Reports as per HPI Neuro Reports as per HPI Psych Reports no additional complaints Endo Reports as per HPI Physical Exam Const General: cooperative, comfortable, no acute distress, well developed, alert and awake Orientation/consciousness: patient oriented x3 Limitations: ambulation with walker HEENT Head: Yes normal to inspection, Yes normocephalic and Yes atraumatic Ears: hearing grossly normal bilaterally Eyes General: appearance normal, both eyes and all related structures Neck Neck: Yes normal visual inspection and Yes trachea midline Chest Chest palpation & inspection: normal inspection of the chest Resp Effort & Inspection: normal respiratory effort and able to speak in complete sentences Cardio Rate: regular rate GI Inspection: Yes normal to inspection General: Yes no CVA tenderness Back/Spine/Pelvis Back: no CVA tenderness Skin General skin exam: no rashes or lesions noted Neuro Other: Bilateral upper extremity tremors noted General: patient oriented x3 Extrem General: Yes normal to inspection Psych Appearance: grossly normal and well kempt Mental Status: mental status grossly normal Speech and movement: Normal speech and movement present and Clear speech present Affect: normal affect Attitude: cooperative Thought process: Normal thought process present Thought content: Normal thought content present Insight: Fair insight present (Psych) Judgement: Fair judgement present (Psych) Results AMB Urinalysis, Automated UA Leukoctes 0 Xiao/uL Last Edit by Praneeth Leigh CCM on 07/02/25 10:41 UA Nitrite Negative Last Edit by Praneeth Leigh CCM on 07/02/25 10:41 UA Urobilinogen 0.2 mg/dL Last Edit by Praneeth Leigh CCM on 07/02/25 10:41 UA Protein 0 mg/dL Last Edit by Praneeth Leigh [facility] on 07/02/25 10:41 UA pH 6.5 Last Edit by Praneeth Leigh [facility] on 07/02/25 10:41 UA Blood 25 Thai/uL Last Edit by Praneeth Leigh [facility] on 07/02/25 10:41 UA Specific [place] 1.005 Last Edit by Praneeth Leigh CCM on 07/02/25 10:41 UA Ketone Negative Last Edit by Praneeth Leigh CCM on 07/02/25 10:41 UA Bilirubin 0 mg/dL Last Edit by Praneeth Leigh [facility] on 07/02/25 10:41 UA Glucose 0 mg/dL Last Edit by Praneeth Leigh [facility] on 07/02/25 10:41 Results Reviewed Results Reviewed: Laboratory Last Values Urine pH (Auto) 6.5 07/02/25 10:41 Specific [place] (Auto) 1.005 07/02/25 10:41 Urine Protein (Auto) 0 mg/dL 07/02/25 10:41 Glucose (UA)(Auto) 0 mg/dL 07/02/25 10:41 Urine Ketones (Auto) Negative 07/02/25 10:41 Urine Blood (Auto) 25 Thai/uL 07/02/25 10:41 Urine Nitrite (Auto) Negative 07/02/25 10:41 Urine Bilirubin (Auto) 0 mg/dL 07/02/25 10:41 Urine Urobilinogen (Auto) 0.2 mg/dL 07/02/25 10:41 Leukocyte Esterase (Auto) 0 Xiao/uL 07/02/25 10:41 Date of Service: 07/01/25 Procedure(s): US retroperitoneal comp FINDINGS: RIGHT KIDNEY: 9.0 x 5.2 x 4.7 cm (SAG x AP x TRV). The kidney is normal in size, contour, and echogenicity. Renal cortical thickness is normal. No calculi or focal parenchymal lesions. No hydronephrosis. LEFT KIDNEY: 8.4 x 5.6 x 5.1 cm (SAG x AP x TRV). The kidney is normal in size, contour, and echogenicity. Renal cortical thickness is normal. No calculi or focal parenchymal lesions. No hydronephrosis. BLADDER: Well distended and normal. Left ureteral jets visualized. Right ureteral jet not seen. Prevoid bladder volume is 231 mL. Postvoid bladder volume is 139 mL. Incidental finding of fluid seen in the endometrial canal. IMPRESSION: Unremarkable renal ultrasound. Small post void residual bladder volume. Assessment & Plan Assessment & Plan (1) Urinary incontinence: Code(s): R32 - Unspecified urinary incontinence Category: Medical Plan In office urinalysis results reviewed with the patient today; as noted above. We discussed importance of timed/scheduled voiding given decreased mobility. We also discussed healthy bathroom behaviors. We discussed potential causes of incontinence as well as further treatment options and risks and benefits of these treatment options. We discussed the importance of limiting/quitting nicotine dependence for overall health and well-being. Recent retroperitoneal ultrasound results reviewed with the patient today. Stop Myrbetriq. Start Gemtesa as discussed and prescribed. Information provided regarding urodynamics. Follow-up in 1-3 months with imaging and PVR; or sooner with any issues, concerns, and or questions. Orders: Orders AMB Urinalysis Automated Today Z13.9 - Encounter for screening, unspecified Urine Cytology Today R31.29 - Other microscopic hematuria Medications: New vibegron (Gemtesa) 75 mg PO DAILY 30 tabs 3RF 30 days N32.81 - Overactive bladder Discontinued mirabegron ER (Myrbetriq) Discontinued Reason: Doctor's Order 25 mg PO DAILY 30 days 30 tabs 3RF N32.81 - Overactive bladder, R35.1 - Nocturia, R39.15 - Urgency of urination Patient Instructions: The patient had an opportunity to ask questions regarding the treatment plan. All questions were answered. Physical exam, labs, and imaging were discussed and reviewed in detail. As well as risks, benefits, and discussion of treatment choices. No major barriers to understanding were identified. The patient expressed understanding and agreement with the above treatment plan. The patient was made aware they should contact our office by phone for worsening of their current condition, the appearance of new symptoms, or with any questions or concerns. Compliance is encouraged with any medications and follow up testing that is ordered. It is a privilege to be allowed the opportunity to participate in? your urological care.? Again, if you have any questions or concerns If you have any questions or concerns please do not hesitate to contact me. The office is [phone]. This note is constructed using voice recognition software. While every effort has been made to ensure accuracy guest relations executive errors may have been included. Yours sincerely, BELEN Perla Coding Level of Care Code Est Pt Level 4 (56760) Complex EM visit Add On G2211 Diagnoses Urinary incontinence R32
--- OUTSIDE RECORDS SUMMARY | 2025-07-02 12:37 | XMS_ITS | Encounter Summary ---
Author Organization [facility] Address [address] [address] Phone Care Team Providers Care Claims Coordinator Name Role Phone Jose Garcia MD Primary Care Provider [phone]- [phone] Jose Garcia MD Primary Care Provider +1- [phone] Encounter Details Date Type Department Care Team (Late st Contact Info) Description 11/25/2017 Procedure Pass [facility], Ct Scan - [address] [address] Social History Tobacco Use Types Packs/Day Years [...] on filedocumented in this encounter Care Teams Claims Coordinator Relationship Specialty Start Date End Date Jose Garcia MD PCP - General 07/26/17 03/05/19 Jose Garcia MD PCP - General Internal Medicine 03/06/19 documented as of this encounter Additional Source Comments The information contained in this document represents components of the legal health record. It is not the complete legal health record.[facility]
--- OUTSIDE RECORDS SUMMARY | 2025-07-02 12:37 | XMS_ITS | Encounter Summary ---
Author Organization [facility] Address [address] [place] [id number] Phone Care Team Providers Care Entry Level Project Coordinator Name Role Phone Jose Garcia MD Primary Care Provider [phone]- [phone] Encounter Details Date Type Department Care Team (Late st Contact Info) Description 02/21/2020 Ancillary Orders [facility],Outside Imaging [address] [place] [address] System, Provider Not In, [facility] [address] [address] Social History Tobacco Use Types Packs/Day Years [...] on filedocumented in this encounter Care Teams Entry Level Project Coordinator Relationship Specialty Start Date End Date Jose Garcia MD [email or web address] PCP - General Internal Medicine 03/06/19 documented as of this encounter Additional Source Comments The information contained in this document represents components of the legal health record. It is not the complete legal health record.[facility]
--- OUTSIDE RECORDS SUMMARY | 2025-07-02 12:37 | XMS_ITS | Continuity of Care Document ---
Author Organization [facility] Address [address] [place] [address] Phone [phone] Social History Type Date Description Comments Sex Female Sex Unknown Medical Devices Description No Information Available Encounters Description No Information Available Assessments Description No Information Available Plan of Treatment No Information Available Functional Status Description No Information Available Mental Status Description No Information Available Referrals Description No Information Available
--- OUTSIDE RECORDS SUMMARY | 2025-07-02 12:37 | XMS_ITS | Clinical Summary ---
Author Organization [facility] Address [address] [address] Phone Care Team Providers Care Quality Compliance Consultant Name Role Phone Jose Garcia MD Primary Care Provider [phone]- [phone] Allergies Active Allergy Reactions Criticality Noted Date [...] [place] [id number] MEDICARE PART A & B MEDICARE PART A & B MEDICARE PART A & B MEDICARE PART A & B MEDICARE PART A & B MEDICARE PART A & B MEDICARE PART A & B MEDICARE PART A & B Care Teams Quality Compliance Consultant Relationship Specialty Start Date End Date Jose Garcia MD [email or web address] PCP - General Internal Medicine 03/06/19 Additional Source Comments The information contained in this document represents components of the legal health record. It is not the complete legal health record.[facility]
--- OUTSIDE RECORDS SUMMARY | 2025-07-02 12:37 | XMS_ITS | Clinical Summary ---
Author Organization [facility] Address [address] [place] [address] Phone Care Team Providers Care Comber Operator Name Role Phone BethcarlosSrikanth NP Primary Care Provider [phone] Allergies No known active allergies Encounters Date Type Department Care Team Description 05/13/2025 7:10 PM EDT - 05/14/2025 10:06 AM EDT Emergency [facility] Emergency [address] [place] [address] Srikanth Cornejo MD Kokkinos, Erika, MD Gordon, Ruth, MD Breakthrough seizure (CMS/HCC V24, CMS/[facility] V28) (Primary Dx); Hypomagnesemia Discharge [...] reflex microscopic (05/14/2025 5:21 AM EDT) Specific [place] Urine 1.008 1.003 - 1.030 LAB URINALYSIS - AUTOMATED METHOD 05/14/2025 5:50 AM EDT [facility] LAB pH, Urine 7.0 5.0 - 8.0 pH LAB URINALYSIS - AUTOMATED METHOD 05/14/2025 5:50 AM [facility] Leukocytes, Urine Negative Negative LAB URINALYSIS - AUTOMATED METHOD 05/14/2025 5:50 AM [facility] Nitrite, Urine Negative Negative LAB URINALYSIS - AUTOMATED METHOD 05/14/2025 5:50 AM [facility] Protein, Urine Negative <=Trace mg/dL LAB URINALYSIS - AUTOMATED METHOD 05/14/2025 5:50 AM [facility] Glucose, Urine Negative Negative mg/dL LAB URINALYSIS - AUTOMATED METHOD 05/14/2025 5:50 AM [facility] Ketones, Urine Negative Negative mg/dL LAB URINALYSIS - AUTOMATED METHOD 05/14/2025 5:50 AM [facility] Urobilinogen, Urine 0.2 0.2 - 1.0 mg/dL LAB URINALYSIS - AUTOMATED METHOD 05/14/2025 5:50 AM [facility] Bilirubin, Urine Negative Negative LAB URINALYSIS - AUTOMATED METHOD 05/14/2025 5:50 AM [facility] Blood, Urine Negative Negative LAB URINALYSIS - AUTOMATED METHOD 05/14/2025 5:50 AM [facility] Urine Urine specimen obtained by clean catch procedure / Unknown Non-blood Collection / Unknown 05/14/2025 5:21 AM EDT 05/14/2025 5:36 AM EDT us Srikanth Cornejo MD LAB URINE ORDERABLES Final Resul t [facility] [address] [place] [address], * [place] top urine tube (05/14/2025 5:21 AM EDT) Extra Tube Hold for add-ons. 05/14/2025 7:01 AM EDT [facility] Comment:Auto resulted. Urine Urine specimen obtained by clean catch procedure / Unknown 05/14/2025 5:21 AM EDT 05/14/2025 5:36 AM EDT Srikanth Cornejo MD LAB URINE ORDERABLES Final Resul t Performing Organization Address [facility] Co de Phone Number [facility] [address] [place] [address], [place] [phone] * Yellow urine no additive (05/14/2025 5:21 AM EDT) Extra Tube Hold for add-ons. 05/14/2025 7:01 AM EDT [facility] Comment:Auto resulted. Urine Urine specimen obtained by clean catch procedure / Unknown 05/14/2025 5:21 AM EDT 05/14/2025 5:36 AM EDT Srikanth Cornejo MD LAB URINE ORDERABLES Final Resul t Performing Organization Address [facility] de Phone Number [facility] [address] [place] [address], [place] [phone] * Valproic acid level, total and free [...] LAB Comment: Test Performed by Vinicio Bangura, [facility], [address] [place] [address] Dirk Mayen M.D., Ph.D., Director of Laboratories , [place] [id number] Blood Venous blood specimen / Unknown Venipuncture / Unknown 05/14/2025 3:06 AM EDT 05/14/2025 3:13 AM EDT us Bettie Stoner MD LAB BLOOD ORDERABLES Final Res ult ISABEL WHITE [address] [place] [address] * CT Head wo Contrast [...] Signed Date: 05/14/2025 07:21 ET Workstation ID: [id number] Transcribed By: Self Edit Transcribed Date: 05/14/2025 [...] Signed Date: 05/14/2025 07:21 ET Workstation ID: [id number] Transcribed By: Self Edit Transcribed Date: 05/14/2025 07:19 ET Srikanth Cornejo MD IMG XR PROCEDURES Final Result * (ABNORMAL) CBC auto differential (05/13/2025 7:32 PM EDT) WBC 4.9 4.8 - 10.8 K/mcL LAB HEMETOLOGY METHOD 05/13/2025 7:57 PM EDT [facility] RBC 4.20 3.80 - 4.80 M/mcL LAB HEMETOLOGY METHOD 05/13/2025 7:57 PM EDT [facility] Hemoglobin 12.4 11.5 - 16.0 g/dL LAB HEMETOLOGY METHOD 05/13/2025 7:57 PM EDT [facility] Hematocrit 39.6 35.0 - 47.0 % LAB HEMETOLOGY METHOD 05/13/2025 7:57 PM EDT [facility] MCV 94.7 79.0 - 98.0 FL LAB HEMETOLOGY METHOD 05/13/2025 7:57 PM EDT [facility] MCH 29.7 27.0 - 32.0 pcg LAB HEMETOLOGY METHOD 05/13/2025 7:57 PM EDT [facility] MCHC 31.3(L) 32.0 - 37.0 g/dL LAB HEMETOLOGY METHOD 05/13/2025 7:57 PM EDT [facility] RDW 15.0 11.0 - 15.0 % LAB HEMETOLOGY METHOD 05/13/2025 7:57 PM EDT [facility] Platelets 249 130 - 400 K/mcL LAB HEMETOLOGY METHOD 05/13/2025 7:57 PM EDT [facility] MPV 10.2 7.0 - 11.0 FL LAB HEMETOLOGY METHOD [facility] NRBC 0.0 <1.0 % LAB HEMETOLOGY METHOD 05/13/2025 7:57 PM [facility] NRBC Absolute 0.00 <0.10 K/mcL LAB HEMETOLOGY METHOD 05/13/2025 7:57 PM [facility] Neutrophils Relative 39.5 % LAB HEMETOLOGY METHOD 05/13/2025 7:57 PM [facility] Lymphocytes Relative 44.1 % LAB HEMETOLOGY METHOD 05/13/2025 7:57 PM [facility] Monocytes Relative 11.5 % LAB HEMETOLOGY METHOD 05/13/2025 7:57 PM [facility] Eosinophils Relative 3.5 % LAB HEMETOLOGY METHOD 05/13/2025 7:57 PM [facility] Basophils Relative 0.8 % LAB HEMETOLOGY METHOD 05/13/2025 7:57 PM [facility] Immature Granulocytes Relative 0.6 % LAB HEMETOLOGY METHOD 05/13/2025 7:57 PM [facility] Neutrophils Absolute 1.93 1.50 - 7.00 K/mcL LAB HEMETOLOGY METHOD 05/13/2025 7:57 PM [facility] Lymphocytes Absolute 2.15 1.00 - 5.00 K/mcL LAB HEMETOLOGY METHOD 05/13/2025 7:57 PM [facility] Monocytes Absolute 0.56 0.20 - 1.00 K/mcL LAB HEMETOLOGY METHOD 05/13/2025 7:57 PM [facility] Eosinophils Absolute 0.17 0.00 - 0.50 K/mcL LAB HEMETOLOGY METHOD 05/13/2025 7:57 PM [facility] Basophils Absolute 0.04 0.00 - 0.20 K/[facility] LAB HEMETOLOGY METHOD 05/13/2025 7:57 PM EDT [facility] Immature Granulocytes Absolute 0.03 0.00 - 0.03 K/[facility] LAB HEMETOLOGY METHOD 05/13/2025 7:57 PM EDT [facility] Blood Venous blood specimen / Unknown Venipuncture / Unknown 05/13/2025 7:32 PM EDT 05/13/2025 7:53 PM EDT Srikanth Cornejo MD LAB BLOOD ORDERABLES Final Resul t Performing Organization Address [facility] Co de Phone Number [facility] [address] [place] [address], [place] [phone] * Prolactin (05/13/2025 7:32 PM EDT) Prolactin 79.00 See Comment ng/mL LAB CHEMISTRY METHOD 05/13/2025 8:27 PM EDT [facility] Comment: Prolactin Reference Ranges (ng/mL) Non 2.2 - 30.3 8.1 - 347.6 Postmenopausal 0.7 - 31.5 Blood Venous blood specimen / Unknown Venipuncture / Unknown 05/13/2025 7:32 PM EDT 05/13/2025 7:53 PM EDT us Srikanth Cornejo MD LAB BLOOD ORDERABLES Final Resul t Performing Organization Address City/[facility]/ZIP Co de Phone Number [facility] [address] [place] [address], [place] [phone] * (ABNORMAL) Magnesium (05/13/2025 7:32 PM EDT) Magnesium 1.7(L) 1.9 - 2.6 mg/dL LAB CHEMISTRY METHOD 05/13/2025 8:23 PM EDT [facility] Blood Venous blood specimen / Unknown Venipuncture / Unknown 05/13/2025 7:32 PM EDT 05/13/2025 7:53 PM EDT us Srikanth Cornejo MD LAB BLOOD ORDERABLES Final Resul t Performing Organization Address City/[facility]/ZIP Co de Phone Number [facility] [address] [place] [address], [place] [phone] * Valproic acid level, total (05/13/2025 7:32 PM EDT) Pathologist [facility] Valproic Acid, Total 95 50 - 100 mcg/mL LAB CHEMISTRY METHOD 05/14/2025 9:04 AM EDT [facility] Blood Venous blood specimen / Unknown Venipuncture / Unknown 05/13/2025 7:32 PM EDT 05/13/2025 7:53 PM EDT us Bettie Stoner MD LAB BLOOD ORDERABLES Final Res ult Performing Organization Address City/[facility]/ZIP Co de Phone Number [facility] [address] [place] [address], [place] [phone] * Basic metabolic panel (05/13/2025 7:32 PM EDT) [facility] Sodium 137 133 - 145 mmol/L LAB CHEMISTRY METHOD 05/13/2025 8:23 PM EDT [facility] Potassium 4.0 3.5 - 5.5 mmol/L LAB CHEMISTRY METHOD 05/13/2025 8:23 PM EDT [facility] Chloride 100 96 - 110 mmol/L LAB CHEMISTRY METHOD 05/13/2025 8:23 PM EDT [facility] CO2 30 21 - 32 mmol/L LAB CHEMISTRY METHOD 05/13/2025 8:23 PM EDT [facility] Anion Gap 7 3 - 11 LAB CHEMISTRY METHOD 05/13/2025 8:23 PM EDT [facility] Glucose 88 70 - 100 mg/dL LAB CHEMISTRY METHOD 05/13/2025 8:23 PM EDT [facility] BUN 7 5 - 25 mg/dL LAB CHEMISTRY METHOD 05/13/2025 8:23 PM EDT [facility] Creatinine 0.72 0.50 - 1.10 mg/dL LAB CHEMISTRY METHOD 05/13/2025 8:23 PM EDT [facility] eGFR 96 >=60 mL/min/1. 73m2 LAB CHEMISTRY METHOD 05/13/2025 8:23 PM EDT [facility] Comment:Calculation based on the Chronic Kidney Disease Epidemiology Collaboration (CKD-EPI) equation refit without adjustment for race. 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
== END 2025-07-02 11:12 | disposition home or self-care (01) ==
LOC: HO.HUSH 10:22
PROVIDERS: PCP Nurse Practitioner Family; Visit Provider Nurse Practitioner Family
DX: R32 Unspecified urinary incontinence (principal); Z13.9 Encounter for screening, unspecified
CPT/HCPCS: 99214; G2211

== ENCOUNTER 2025-07-04 10:09 | Day surgery (SDC) | payer MEDICARE, MEDICAID, SELFPAY ==
--- OUTSIDE RECORDS SUMMARY | 2025-06-27 07:34 | XMS_ITS | Encounter Summary ---
Author Organization [facility] Address [address] [address] Phone Care Team Providers Care Cottage Cheese Maker Name Role Phone Jose Garcia MD Primary Care Provider +1- [phone] Jose Garcia MD Primary Care Provider +1- [phone] Encounter Details Date Type Department Care Team (Late st Contact Info) Description 11/25/2017 Procedure Pass [facility], Ct Scan - [address] [address] Social History Tobacco Use Types Packs/Day Years [...] on filedocumented in this encounter Care Teams Cottage Cheese Maker Relationship Specialty Start Date End Date Jose Garcia MD PCP - General 07/26/17 03/05/19 Jose Garcia MD PCP - General Internal Medicine 03/06/19 documented as of this encounter Additional Source Comments The information contained in this document represents components of the legal health record. It is not the complete legal health record.[facility]
--- OUTSIDE RECORDS SUMMARY | 2025-06-27 07:34 | XMS_ITS | Clinical Summary ---
Author Organization [facility] Address [address] [address] Phone Care Team Providers Care Farm Management Teacher Name Role Phone Jose Garcia MD Primary Care Provider +1- [phone] Allergies Active Allergy Reactions Criticality Noted Date [...] Insurance MED[place] [id number] MEDICARE PART A & B MEDICARE PART A & B MEDICARE PART A & B MEDICARE PART A & B MEDICARE PART A & B MEDICARE PART A & B MEDICARE PART A & B MEDICARE PART A & B Care Teams Farm Management Teacher Relationship Specialty Start Date End Date Jose Garcia MD [email or web address] PCP - General Internal Medicine 03/06/19 Additional Source Comments The information contained in this document represents components of the legal health record. It is not the complete legal health record.[facility]
--- OUTSIDE RECORDS SUMMARY | 2025-06-27 07:34 | XMS_ITS | Encounter Summary ---
Author Organization [facility] Address [address] [place] [address] Phone Care Team Providers Care Energy Systems Engineer Name Role Phone Jose Garcia MD Primary Care Provider +1- [phone] Encounter Details Date Type Department Care Team (Late st Contact Info) Description 02/21/2020 Ancillary Orders [facility],Outside Imaging [address] [place] [address] System, Provider Not In, [facility] [address] [address] Social History Tobacco Use Types Packs/Day Years [...] on filedocumented in this encounter Care Teams Energy Systems Engineer Relationship Specialty Start Date End Date Jose Garcia MD [email or web address] PCP - General Internal Medicine 03/06/19 documented as of this encounter Additional Source Comments The information contained in this document represents components of the legal health record. It is not the complete legal health record.[facility]
--- OUTSIDE RECORDS SUMMARY | 2025-06-27 07:34 | XMS_ITS | Clinical Summary ---
Author Organization [facility] Address [address] [place] [address] Phone Care Team Providers Care Snow Fence Erector Name Role Phone MarianalbaroSrikanth NP Primary Care Provider Allergies No known active allergies Encounters Date Type Department Care Team Description 05/13/2025 7:10 PM EDT - 05/14/2025 10:06 AM EDT Emergency [facility] Emergency [address] [place] [address] Srikanth Cornejo MD Kokkinos, Erika, [...] reflex microscopic (05/14/2025 5:21 AM EDT) Specific [place] Urine 1.008 1.003 - 1.030 LAB URINALYSIS - AUTOMATED METHOD 05/14/2025 5:50 AM EDT [facility] pH, Urine 7.0 5.0 - [...] Resul t [facility] [address] [place] [address], * [place] top urine tube (05/14/2025 5:21 AM EDT) Extra Tube Hold for add-ons. 05/14/2025 7:01 AM EDT [facility] Comment:Auto resulted. Urine Urine specimen obtained by clean catch procedure / Unknown 05/14/2025 5:21 AM EDT 05/14/2025 5:36 AM EDT Srikanth Cornejo MD LAB URINE ORDERABLES Final Resul t Performing Organization Address [facility] Co de Phone Number [facility] [address] [place] [address], [place] [phone] * Yellow urine no additive (05/14/2025 5:21 AM EDT) Extra Tube Hold for add-ons. 05/14/2025 7:01 AM EDT [facility] Comment:Auto resulted. Urine Urine specimen obtained by clean catch procedure / Unknown 05/14/2025 5:21 AM EDT 05/14/2025 5:36 AM EDT Srikanth Cornejo MD LAB URINE ORDERABLES Final Resul t Performing Organization Address [facility] de Phone Number [facility] [address] [place] [address], [place] [phone] * Valproic acid level, total and free [...] LAB Comment: Test Performed by Vinicio Bangura, [facility], [address] [place] [address] Dirk Mayen M.D., Ph.D., Director of Laboratories , [place] [id number] Blood Venous blood specimen / Unknown Venipuncture / Unknown 05/14/2025 3:06 AM EDT 05/14/2025 3:13 AM EDT us Bettie Stoner MD LAB BLOOD ORDERABLES Final Res ult ISABEL WHITE [address] [place] [address] * CT Head wo Contrast [...] Signed Date: 05/14/2025 07:21 ET Workstation ID: [id number] Transcribed By: Self Edit Transcribed Date: 05/14/2025 [...] Signed Date: 05/14/2025 07:21 ET Workstation ID: [id number] Transcribed By: Self Edit Transcribed Date: 05/14/2025 [...] [place] LAB HEMETOLOGY [facility] NRBC 0.0 <1.0 % LAB [...] LAB Basophils Absolute 0.04 0.00 - 0.20 K/[facility] LAB HEMETOLOGY METHOD 05/13/2025 7:57 PM EDT [facility] Immature Granulocytes Absolute 0.03 0.00 - 0.03 K/[facility] LAB HEMETOLOGY METHOD 05/13/2025 7:57 PM EDT [facility] Blood Venous blood specimen / Unknown Venipuncture / Unknown 05/13/2025 7:32 PM EDT 05/13/2025 7:53 PM EDT Srikanth Cornejo MD LAB BLOOD ORDERABLES Final Resul t Performing Organization Address [facility] Co de Phone Number [facility] [address] [place] [address], [place] [phone] * Prolactin (05/13/2025 7:32 PM EDT) Prolactin [...] ORDERABLES Final Resul t Performing Organization Address City/[facility]/ZIP Co de Phone Number [facility] [address] [place] [address], [place] [phone] * (ABNORMAL) Magnesium (05/13/2025 7:32 PM EDT) Magnesium 1.7(L) 1.9 - 2.6 mg/dL LAB CHEMISTRY METHOD 05/13/2025 8:23 PM EDT [facility] Blood Venous blood specimen / Unknown Venipuncture / Unknown 05/13/2025 7:32 PM EDT 05/13/2025 7:53 PM EDT us Srikanth Cornejo MD LAB BLOOD ORDERABLES Final Resul t Performing Organization Address City/[facility]/ZIP Co de Phone Number [facility] [address] [place] [address], [place] [phone] * Valproic acid level, total (05/13/2025 7:32 PM EDT) Pathologist [facility] Valproic Acid, Total 95 50 - 100 mcg/mL LAB CHEMISTRY METHOD 05/14/2025 9:04 AM EDT [facility] Blood Venous blood specimen / Unknown Venipuncture / Unknown 05/13/2025 7:32 PM EDT 05/13/2025 7:53 PM EDT us Bettie Stoner MD LAB BLOOD ORDERABLES Final Res ult Performing Organization Address City/[facility]/ZIP Co de Phone Number [facility] [address] [place] [address], [place] [phone] * Basic metabolic panel (05/13/2025 7:32 PM EDT) [facility] Sodium 137 133 - 145 mmol/L [...] Resul t [facility] [address] [place] [address], from Last 3 Months Insurance MEDICARE [place]ICA[place] - [place] Advance Directives Documents on File Type Date Recorded Patient Reproductive Endocrinologist Expl anation Health Care Decision (hx) 09/18/2020 AD LAUREANO DIRECTIVE Health Care Decision (hx) 09/18/2020 AD LAUREANO DIRECTIVE Health Care Decision (hx) 09/18/2020 AD LAUREANO DIRECTIVE Care Teams Snow Fence Erector Relationship Specialty Start Date End Date Srikanth Palomares NP [address] [place], [place] PCP - General Family Medicine 05/13/25
--- OUTSIDE RECORDS SUMMARY | 2025-06-27 07:34 | XMS_ITS | Continuity of Care Document ---
Author Organization [facility] Address [address] [facility] [address] [place] [address] Phone [phone] Social History Type Date Description Comments Sex Female Sex Unknown Medical Devices Description No Information Available Encounters Description No Information Available Assessments Description No Information Available Plan of Treatment No Information Available Functional Status Description No Information Available Mental Status Description No Information Available Referrals Description No Information Available
--- NOTE | 2025-07-02 13:10 | HO.ANESPROP2 ---
Documented by User: Sue Vasquez NP 07/02/25 13:24 HPI - Anesthesia Eval Consult details Narrative: 59yo F for Upper Endoscopy and Colonoscopy COPD: Follows [facility] [place]. Last office visit 06/14/25 with symptoms. CXR with chronic changes, pending PFT and sleep study. Inhalers changed. Pt declined 6MWT. 90% on RA. Active smoker. T/C to patient 07/02/25: Pt reports immense improvement of symptoms with Trelegy inhaler. No way of checking O2 level at home. Verbalized understanding of preop eval with VS and anesthesia to ensure safe to proceed. CAD Follows cardiology prn only. Last seen 5 years ago. No CP/SOB PMFSH Active Problems Active Problems: All Active Problems Daytime somnolence (Acute) Cough (Acute) Right hip pain (Acute) Tremor (Acute) TLE (temporal lobe epilepsy) (Acute) Myocardial infarct (Acute) Hard of hearing (Acute) Weakness (Acute) Urinary incontinence (Acute) COPD (chronic obstructive pulmonary disease) (Acute) Nausea and vomiting (Acute) Achalasia (Acute) Osteoporosis (Acute) Osteoarthritis of hips, bilateral (Acute) Vitamin D deficiency (Acute) Nicotine dependence, unspecified, uncomplicated (Acute) Erosive esophagitis (Acute) Lymphedema (Acute) Erosive gastritis (Acute) Leukopenia (Acute) Varicose veins of right lower extremity with inflammation (Acute) Elevated TSH (Acute) Post-menopausal (Acute) Diarrhea (Acute) Dyslipidemia (Acute) Delayed gastric emptying (Acute) Cardiomegaly (Acute) Microscopic hematuria (Acute) Dysphagia (Acute) Esophageal spasm (Acute) GERD with esophagitis (Acute) Hypertension (Acute) Tubular adenoma of colon (Acute) Seizure (Acute) Hypothyroid (Acute) Multiple pulmonary nodules (Acute) Past Medical History Medical History Weakness Urinary incontinence Epigastric pain Physical deconditioning Hypomagnesemia Abdominal pain Pleuritic pain Bilateral hip pain Bilateral knee pain Esophageal stricture Screening for cervical cancer Screening for colon cancer Pain in right leg Swelling of right lower extremity Breast cancer screening, high risk patient Edema Hypoglycemia Tremor Cerebral microvascular disease Hx of hiatal hernia Tubular adenoma of colon On beta matty at home Nicotine dependence, unspecified, uncomplicated Lumbosacral pain Lumbar stenosis Lumbar radiculitis Multiple pulmonary nodules COPD (chronic obstructive pulmonary disease) Osteoporosis Hypothyroid Depression Hyperlipidemia Hypertension Myocardial infarct CAD (coronary artery disease) Intracranial arachnoid cyst Cerebral atrophy Seizure Family History Family History Father Blood clots in brain Diabetes Polio Mother Breast cancer Hiatal hernia Sister Cancer Brother Myocardial infarction Family/Other Throat cancer Stomach cancer Paternal Grandmother Cancer Family history of problems with anesthesia: No Surgical History Surgical History Hx of local excision of skin lesion History of foot surgery (~2013) History of tubal ligation History of heart artery stent (~2004) History of colonoscopy (~2018) History of appendectomy S/P dilatation of esophageal stricture (~2020) History of [place] fundoplication (~2019) History of esophagogastroduodenoscopy (EGD) (~2020) History of Problems with Anesthesia: No Social History Social History Household Members: Other Housing: Assisted Living Facility Housing Other:: assisted living Are you a primary emergency care attendant to a significant other at home: No Do you presently have visiting nurse or other home services: Yes Alcohol intake: former Comment: Quit ~2006 Patient Tobacco Use Status: Current everyday Tobacco user Tobacco use type: Cigarette Cigarette Packs Per Day: 0.5 Cigarettes Per Day: 10.0 Years Smoked: 42 Smoked in Last 30 Days: Yes e-Cigarette/Vaping Use: Never Used Patient Interested in Nicotine Replacement: No Second Hand Smoke Exposure: No Substance Use Type: Crack/Cocaine Have you been hit, kicked, punched, or otherwise hurt by someone within the past year? If so, by whom?: No Are you DNR?: No Advance Directives: No Advance Directives Information Provided: Yes Poor oral hygiene: Yes service: No Current occupational status: disabled Cognitive needs: Yes Hearing needs: Yes Vision needs: Yes Meds Allergies Allergy/AdvReac Type Severity Reaction Status Date / Time latex (LATEX) Allergy Intermediate RASH Verified 07/04/25 11:38 morphine (MORPHINE) Allergy Intermediate SWELLING Verified 07/04/25 11:38 alendronate sodium (From Allergy Unknown PER H+P Verified 07/04/25 11:38 FOSAMAX) levetiracetam (From KEPPRA) AdvReac Intermediate DICKENS Verified 07/04/25 11:38 phenytoin (From DILANTIN) AdvReac Intermediate CANT Verified 07/04/25 11:38 FUNCTION Home Medications ?Medication ?Instructions ?Recorded ?Confirmed ?Last Taken ?Type sertraline 100 mg tablet 200 mg PO QAM 04/28/21 07/04/25 06/04/21 History zolpidem 10 mg tablet 10 mg PO BEDTIME 01/21/23 07/04/25 Unknown History doxepin 10 mg capsule 10 mg PO BEDTIME 02/19/25 07/04/25 Unknown History calcium ER 600 mg (as carb,cit)-D3 1 tab PO DAILY 04/18/25 07/04/25 Unknown History 12.5 mcg (500 unit) tablet, ext.rel (Citracal-D3 Slow Release) magnesium oxide 500 mg capsule 500 mg PO DAILY 04/18/25 07/04/25 Unknown History memantine 5 mg tablet (Namenda) 5 mg PO QAM 04/23/25 07/04/25 Unknown History pravastatin 40 mg tablet 40 mg PO DAILY 04/23/25 07/04/25 Unknown History clonazepam 0.5 mg tablet mg PO 06/19/25 07/02/25 Unknown History Exam Narrative Narrative: XR chest 2V 06/2025 IMPRESSION: Chronic interstitial lung disease suggesting COPD emphysematous type changes. No acute airspace disease. Atherosclerosis, aorta. Scoliosis and spondylosis, thoracolumbar spine. Osteopenia versus osteoporosis. ECHO 05/2025 Conclusions: - 1. Normal LV ejection fraction of 60 65% 2. Normal cardiac valvular Dopplers 3. Moderately elevated right ventricular systolic pressure 4. No gross pericardial effusion Assessment and Plan Assessment Anesthesia Assessment: Chart Reviewed Final Anesthetic Review Family History of Problems with Anesthesia: No History of Problems with Anesthesia: No Documented by User: Drew Zavala MD 07/04/25 13:07 [facility] Past Medical History Medical History Weakness Urinary incontinence Epigastric pain Physical deconditioning Hypomagnesemia Abdominal pain Pleuritic pain Bilateral hip pain Bilateral knee pain Esophageal stricture Screening for cervical cancer Screening for colon cancer Pain in right leg Swelling of right lower extremity Breast cancer screening, high risk patient Edema Hypoglycemia Tremor Cerebral microvascular disease Hx of hiatal hernia Tubular adenoma of colon On beta matty at home Nicotine dependence, unspecified, uncomplicated Lumbosacral pain Lumbar stenosis Lumbar radiculitis Multiple pulmonary nodules COPD (chronic obstructive pulmonary disease) Osteoporosis Hypothyroid Depression Hyperlipidemia Hypertension Myocardial infarct CAD (coronary artery disease) Intracranial arachnoid cyst Cerebral atrophy Seizure Family History Family History Father Blood clots in brain Diabetes Polio Mother Breast cancer Hiatal hernia Sister Cancer Brother Myocardial infarction Family/Other Throat cancer Stomach cancer Paternal Grandmother Cancer Surgical History Surgical History Hx of local excision of skin lesion History of foot surgery (~2013) History of tubal ligation History of heart artery stent (~2004) History of colonoscopy (~2018) History of appendectomy S/P dilatation of esophageal stricture (~2020) History of [place] fundoplication (~2019) History of esophagogastroduodenoscopy (EGD) (~2020) Social History Social History Household Members: Other Housing: Assisted Living Facility Housing Other:: assisted living Are you a primary emergency care attendant to a significant other at home: No Do you presently have visiting nurse or other home services: Yes Alcohol intake: former Comment: Quit ~2006 Patient Tobacco Use Status: Current everyday Tobacco user Tobacco use type: Cigarette Cigarette Packs Per Day: 0.5 Cigarettes Per Day: 10.0 Years Smoked: 42 Smoked in Last 30 Days: Yes e-Cigarette/Vaping Use: Never Used Patient Interested in Nicotine Replacement: No Second Hand Smoke Exposure: No Substance Use Type: Crack/Cocaine Have you been hit, kicked, punched, or otherwise hurt by someone within the past year? If so, by whom?: No Are you DNR?: No Advance Directives: No Advance Directives Information Provided: Yes Poor oral hygiene: Yes service: No Current occupational status: disabled Cognitive needs: Yes Hearing needs: Yes Vision needs: Yes Meds Allergies Allergy/AdvReac Type Severity Reaction Status Date / Time latex (LATEX) Allergy Intermediate RASH Verified 07/04/25 11:38 morphine (MORPHINE) Allergy Intermediate SWELLING Verified 07/04/25 11:38 alendronate sodium (From Allergy Unknown PER H+P Verified 07/04/25 11:38 FOSAMAX) levetiracetam (From KEPPRA) AdvReac Intermediate DICKENS Verified 07/04/25 11:38 phenytoin (From DILANTIN) AdvReac Intermediate CANT Verified 07/04/25 11:38 FUNCTION Home Medications ?Medication ?Instructions ?Recorded ?Confirmed ?Last Taken ?Type sertraline 100 mg tablet 200 mg PO QAM 04/28/21 07/04/25 06/04/21 History zolpidem 10 mg tablet 10 mg PO BEDTIME 01/21/23 07/04/25 Unknown History doxepin 10 mg capsule 10 mg PO BEDTIME 02/19/25 07/04/25 Unknown History calcium ER 600 mg (as carb,cit)-D3 1 tab PO DAILY 04/18/25 07/04/25 Unknown History 12.5 mcg (500 unit) tablet, ext.rel (Citracal-D3 Slow Release) magnesium oxide 500 mg capsule 500 mg PO DAILY 04/18/25 07/04/25 Unknown History memantine 5 mg tablet (Namenda) 5 mg PO QAM 04/23/25 07/04/25 Unknown History pravastatin 40 mg tablet 40 mg PO DAILY 04/23/25 07/04/25 Unknown History clonazepam 0.5 mg tablet mg PO 06/19/25 07/02/25 Unknown History Exam Exam Date and Time: 07/04/25 Airway Mallampati Class: III TM Dist: >3cm Neck ROM: Full Denture: Upper and Lower Loose/Missing/Broken Teeth: Yes Heart: RRR Lungs: ctab vesicular Assessment and Plan Final Anesthetic Review NPO: Yes ASA Class: III Final Preanesthetic Review: No Changes in Pt Med Stat, Meds/Allgs Chart Reviewed, Consent Obtained/Reviewed and Anes Risks/Benef Reviewed Patient Risk: Low Procedure Risk: Low Anesthetic Plan Anesthetic Plan: MAC: Disposition: Standard PACU
[2025-07-04 11:20] VITALS: BMI 23.6
[2025-07-04 11:33] VITALS: BP 113/64; PULSE 60; RESP 18; TEMP 36.8; O2SAT 93
[2025-07-04] MEDS: Lactated Ringers 1,000 ML 100 ML IVCONT (11:34)
--- NOTE | 2025-07-04 12:52 | MHC.SHP ---
Pre-Procedural Eval Section A - 24 Hr Update-Section A only Date of Service: 07/04/25 Section B - Complete if H&P > 30 days Chief Complaint: Achalasia of cardia,Benign neoplasm of colon, Relevant Family History (Specify if Yes): No Relevant Social History: Tobacco Use Present Medications: see Short Stay Collaborative assessment Medical History: Significant History (Weakness Urinary incontinence Epigastric pain Physical deconditioning Hypomagnesemia Abdominal pain Pleuritic pain Bilateral hip pain Bilateral knee pain Esophageal stricture Screening for cervical cancer Screening for colon cancer Pain in right leg Swelling of right lower extremity Breast cancer sc) History of Previous Operations: Relevant previous surgery/procedure and date(s) ( Hx of local excision of skin lesion History of foot surgery (~2013) History of tubal ligation History of heart artery stent (~2004) History of colonoscopy (~2018) History of appendectomy S/P dilatation of esophageal stricture (~2020) History of [place] fundoplication (~2019) History of esophagogastr) Allergies: Allergies Allergy/AdvReac Type Severity Reaction Status Date / Time latex (LATEX) Allergy Intermediate RASH Verified 07/04/25 11:38 morphine (MORPHINE) Allergy Intermediate SWELLING Verified 07/04/25 11:38 alendronate sodium (From Allergy Unknown PER H+P Verified 07/04/25 11:38 FOSAMAX) levetiracetam (From KEPPRA) AdvReac Intermediate DICKENS Verified 07/04/25 11:38 phenytoin (From DILANTIN) AdvReac Intermediate CANT Verified 07/04/25 11:38 FUNCTION Review of Systems Sugical H&P ROS: Negative: Constitution, Cardiovascular, Respiratory, Neurological, Psychiatric, Hem-Onc, Allergic/Immunologic, Gastrointestinal, Genitourinary, Musculoskeletal, Integumentary, Endocrine and Eyes/Ears/Nose/Throat Exam Surgical H&P Exam: Normal: HEENT, Normal: Heart, Normal: Lungs, Normal: Extremities, Normal: Abdomen, Normal: Skin and Normal: Neurological Plan Diagnosis/Plan: Unchanged I have reviewed the history and physical and performed a pertinent physical examination on my patient. No changes have occurred unless specified. Time Spent With Patient Time: Total time managing care of this patient today ____ minutes.
--- NOTE | 2025-07-04 13:08 | PC.NURSE ---
Dr. Zavala updated regarding +2 pitting edema noted to BLE and that patient did not take her morning dose of Depakote and states most recent seizure was a few weeks ago and she did not go to ER post. Dr. Zavala spoke with pharmacy and will medicate with patient seizure medication post procedure in pacu. okay to proceed. doctor assessed patient.
--- NOTE | 2025-07-04 13:51 | HO.OPN-COLON ---
Colonoscopy Operative Note Operative Note Date of Service: 07/04/25 Narrative: Operative Information Procedure Description: EGD, Colonoscopy Indication: dysphagia and screening Anesthesia: MAC FLEXIBLE TRANSORAL UPPER GASTROINTESTINAL ENDOSCOPY AND COLONOSCOPY PROCEDURE NOTE UPPER ENDOSCOPY Consent: Indications for the procedure and potential complications of bleeding, perforation, reaction to medications and missed diagnosis were discussed with the patient and informed consent was obtained. Instrument: Olympus GIF H 190 J mid size upper endoscope Monitoring: Vital signs and clinical assessment, continuous EKG monitoring, Pulse oximetry, Carbon Dioxide monitoring and blood pressure monitoring were done throughout the procedure. Procedure: The patient was placed in the left lateral decubitis position and pre-procedure medications were administered and a bite block was placed. The endoscope was inserted into the mouth and advanced under direct vision to the third part of duodenum. A careful inspection was made as the upper endoscope was withdrawn including a retroflexed examination of the proximal stomach; Findings and interventions are described below. Findings: Larynx:normal Esophagus: GE junction at 35 cm, diaphragm hiatus at 35 cm, esophagitis dissicans superficialis noted in distal esophagus with sloughed off irritated mucosa, bx taken, also x 2 clips applied to one area due to bleeding, prior to that GEJ and UES dilated with balloon to 20 mm, no tears seen Stomach: Patchy erythema. Biopsies were obtained. Grade 2 flap valve on retroflexed examination of the cardia. Duodenum: Normal bulb and descending duodenum, bx taken Intervention: Biopsies as noted above, COLONOSCOPY Instrument: Olympus variable stiffness pediatric scope 190L Colonoscopy Monitoring: Vital signs and clinical assessment, continuous EKG monitoring, Pulse oximetry, Carbon Dioxide monitoring and blood pressure monitoring were done throughout the procedure. Colon withdrawal time was 12 minutes. Procedure: The patient was placed in the left lateral decubitis position and pre-procedure medications were administered. After a digital rectal examination of the ano-rectum, the video colonoscope was inserted into the rectum and advanced through the colon to the cecum/TI. The colonoscope was slowly withdrawn in a retrograde panoramic fashion and the colon mucosa was carefully examined including a retroflexed view of the rectum. Findings and interventions are described below. Procedure Difficulty:moderate Findings: Terminal Ileum-normal Cecum: 4-5 mm sessile polyp removed with cold forceps Ascending Colon: x 2 sessile polype 8-9 mm removed with cold snare Transverse Colon -normal Descending Colon:normal Sigmoid Colon: normal Rectum: Retroflexion with small internal hemorrhoids, grade I Anorectum - normal Colon preparation: [place] Bowel Preparation Scale Right colon; 1-2 Transverse colon: 2 Left colon; 2 (0 = Unprepared colon segment with mucosa not seen due to solid stool that cannot be cleared. 1 = Portion of mucosa of the colon segment seen, but other areas of the colon segment not well seen due to staining, residual stool and/or opaque liquid. 2 = Minor amount of residual staining, small fragments of stool and/or opaque liquid, but mucosa of colon segment seen well. 3 = Entire mucosa of colon segment seen well with no residual staining, small fragments of stool or opaque liquid) Impression and Post Procedure Diagnosis: Endoscopy Findings: esophagitis gastritis Colonoscopy Findings: colon polyps x 3 internal hemorrhoids Plan: Await Pathology results Repeat Colonoscopy in 2-3 years due to fair prep in some areas or earlier if clinically indicated High fiber diet leaflet avoid straining at stool, epsom salts and sitz bath, anusol supps or cream she has manometry scheduled in Dec per her report, can proceed if dysphagia persists Above findings were reviewed with the patient and relevant handouts were provided if indicated.
[2025-07-04 13:56] VITALS: BP 108/67; PULSE 73; RESP 10; TEMP 36.3; O2SAT 98
[2025-07-04 14:11] VITALS: BP 107/74; PULSE 68; RESP 18; O2SAT 91
[2025-07-04] MEDS: Valproic Acid (as Sodium Salt) 500 MG in Dextrose 5 % 50 ML 55 MG IV (14:11)
[2025-07-04 14:26] VITALS: BP 93/52; PULSE 68; RESP 17; O2SAT 93
[2025-07-04 14:40] VITALS: BP 108/51; PULSE 67; RESP 13; O2SAT 93
[2025-07-04 14:55] VITALS: BP 115/57; PULSE 62; RESP 20; TEMP 36.3; O2SAT 93
== END 2025-07-04 16:12 | disposition home or self-care (01) ==
PROVIDERS: PCP Nurse Practitioner Family; Visit Provider Internal Medicine Gastroenterology
PROC: (CPT 45385; principal; 2025-07-04 12:50)
DX: Z12.11 Encounter for screening for malignant neoplasm of colon (principal); Z86.0101 Personal history of adenomatous and serrated colon polyps; D12.2 Benign neoplasm of ascending colon; K63.5 Polyp of colon; K64.0 First degree hemorrhoids; R19.7 Diarrhea, unspecified; K22.0 Achalasia of cardia; R13.10 Dysphagia, unspecified; K21.00 Gastro-esophageal reflux disease with esophagitis, without bleeding; K22.10 Ulcer of esophagus without bleeding; K29.60 Other gastritis without bleeding; K30 Functional dyspepsia; K44.9 Diaphragmatic hernia without obstruction or gangrene; I10 Essential (primary) hypertension; I25.10 Atherosclerotic heart disease of native coronary artery without angina pectoris; I25.2 Old myocardial infarction; Z95.5 Presence of coronary angioplasty implant and graft; E78.5 Hyperlipidemia, unspecified; R91.8 Other nonspecific abnormal finding of lung field; J44.9 Chronic obstructive pulmonary disease, unspecified; R56.9 Unspecified convulsions; G47.33 Obstructive sleep apnea (adult) (pediatric); G31.9 Degenerative disease of nervous system, unspecified; Z79.899 Other long term (current) drug therapy; Z99.89 Dependence on other enabling machines and devices; Z91.040 Latex allergy status; Z88.5 Allergy status to narcotic agent; Z88.8 Allergy status to other drugs, medicaments and biological substances; F14.90 Cocaine use, unspecified, uncomplicated; F17.210 Nicotine dependence, cigarettes, uncomplicated; Z98.890 Other specified postprocedural states
CPT/HCPCS: 45385; 45380; 43249; 43239; 88305; 88313; 88342; C1726; J2003; J2704; J3010

== ENCOUNTER → 2025-07-04 10:09 | Outpatient (BNV) | payer MEDICARE, MEDICAID, SELFPAY | PROVIDERS: PCP Nurse Practitioner Family; Visit Provider Internal Medicine Gastroenterology | DX: Z12.11 Encounter for screening for malignant neoplasm of colon (principal); D12.0 Benign neoplasm of cecum; K64.0 First degree hemorrhoids; D12.2 Benign neoplasm of ascending colon; R13.10 Dysphagia, unspecified; K20.91 Esophagitis, unspecified with bleeding; K29.70 Gastritis, unspecified, without bleeding | CPT/HCPCS: 43239; 43249; 45385 ==

== ENCOUNTER 2025-08-15 09:29 | Outpatient (AMB) | payer MEDICARE, MEDICAID, SELFPAY ==
[2025-08-15 09:31] VITALS: BP 100/50; PULSE 69; BMI 25.2
--- NOTE | 2025-08-15 09:31 | MHC.OFFVIS ---
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 Accompanied by: daughter Allergies latex (LATEX) Allergy (Intermediate, Verified 08/15/25 09:36) RASH morphine (MORPHINE) Allergy (Intermediate, Verified 08/15/25 09:36) SWELLING alendronate sodium (From FOSAMAX) Allergy (Unknown, Verified 08/15/25 09:36) PER H+P levetiracetam (From KEPPRA) Adverse Reaction (Intermediate, Verified 08/15/25 09:36) DICKENS phenytoin (From DILANTIN) Adverse Reaction (Intermediate, Verified 08/15/25 09:36) CANT FUNCTION Medication List - Last Reconciled 08/15/25 by Cedric Alston MD albuterol sulfate 90 mcg/actuation (Ventolin HFA) 2 puffs inhalation Q6H PRN aspirin 81 mg PO DAILY 90 days atorvastatin 80 mg PO DAILY 90 days [bedside commode As directed] calcium carb, citrate-vit D3 600 mg-12.5 mcg (500 unit) ER (Citracal-D3 Slow Release) 1 tab PO DAILY clonazepam mg PO PRN [disposable brief-pull ups As directed] divalproex ER 500 mg PO TID doxepin 10 mg PO BEDTIME [elevated toilet seat As directed] csbacjxgyaq-bpsqnnzwl-ddpjlcyb 200-62.5-25 mcg (Trelegy Ellipta) 1 inh inhalation DAILY Forteo (teriparatide) 20 mcg (0.08 mL) subcut DAILY NS ipratropium-albuterol 0.5 mg-3 mg(2.5 mg base)/3 mL 3 mL inhalation Q6-8H PRN lansoprazole 30 mg PO BID levothyroxine 100 mcg PO DAILY loperamide 2 mg PO Q6H PRN magnesium oxide 500 mg PO DAILY metoclopramide HCl 10 mg PO QID nebulizers As directed for updraft treatments, with supplies pen needle, diabetic (Comfort EZ Pen [place]) As directed inject once a day pravastatin 40 mg PO DAILY primidone 50 mg PO TID sertraline 200 mg PO QAM [versa frame for toilet As directed] zolpidem 10 mg PO BEDTIME HPI Comments Details: Yuli is here for consultation regarding coronary disease. It seems that she has had a myocardial infarction around 2004 and apparently had a stent placement at that time. She is a chronic smoker, still smokes and also has COPD. She does not have any clear-cut exertional anginal-type symptoms. Has had random episodes of what she describes as pain in the back rather. She is describing discomfort in the lower extremities. Nothing clearly suggestive of cardiac symptoms. [facility] Medical History Weakness Urinary incontinence Epigastric pain Physical deconditioning Hypomagnesemia Abdominal pain Pleuritic pain Bilateral hip pain Bilateral knee pain Esophageal stricture Screening for cervical cancer Screening for colon cancer Pain in right leg Swelling of right lower extremity Breast cancer screening, high risk patient Edema Hypoglycemia Tremor Cerebral microvascular disease Hx of hiatal hernia Tubular adenoma of colon On beta matty at home Nicotine dependence, unspecified, uncomplicated Lumbosacral pain Lumbar stenosis Lumbar radiculitis Multiple pulmonary nodules COPD (chronic obstructive pulmonary disease) Osteoporosis Hypothyroid Depression Hyperlipidemia Hypertension Myocardial infarct CAD (coronary artery disease) Intracranial arachnoid cyst Cerebral atrophy Seizure Surgical History Hx of local excision of skin lesion History of foot surgery (~2013) History of tubal ligation History of heart artery stent (~2004) History of colonoscopy (~2018) History of appendectomy S/P dilatation of esophageal stricture (~2020) History of [place] fundoplication (~2019) History of esophagogastroduodenoscopy (EGD) (~2020) Family History (Updated 08/15/25 @ 09:38 by Quentin Brandt CNA) Father Blood clots in brain Diabetes Polio Heart problem Mother Breast cancer Hiatal hernia Sister Cancer Brother Myocardial infarction Cardiac defibrillator in place Family/Other Throat cancer Stomach cancer Paternal Grandmother Cancer Social History Household Members: Other Housing: Assisted Living Facility Housing Other:: assisted living Are you a primary personal care attendant to a significant other at home: No Do you presently have visiting nurse or other home services: Yes Alcohol intake: former Comment: Quit ~2006 Patient Tobacco Use Status: Current everyday Tobacco user Tobacco use type: Cigarette Cigarette Packs Per Day: 0.5 Cigarettes Per Day: 10.0 Years Smoked: 42 e-Cigarette/Vaping Use: Never Used Second Hand Smoke Exposure: No Substance Use Type: Crack/Cocaine service: No Current occupational status: disabled Cognitive needs: Yes Hearing needs: Yes Vision needs: Yes Review of Systems Const Denies daytime sleepiness, Denies difficulty sleeping, Denies snoring, Denies stops breathing during sleep and Denies weakness Card Denies chest pain, Denies rapid heart rate, Reports pedal edema, Denies irregular heart rhythm, Reports claudication, Reports leg edema, Denies lightheadedness, Reports palpitations, Reports dyspnea, Denies dyspnea on exertion, Denies orthopnea, Denies paroxysmal nocturnal dyspnea and Denies slow heart rate Resp Denies cough, Reports dyspnea, Denies dyspnea on exertion and Denies snoring GI Reports no additional complaints, Denies hematochezia, Denies change in stool character and Denies dyspepsia Musc Denies abnormal gait, Denies muscle weakness and Denies numbness Neuro Denies abnormal gait, Denies numbness and Denies weakness Endo Reports palpitations Physical Exam Vital Signs: Last Vital Signs Pulse 69 08/15/25 09:31 BP 100/50 L 08/15/25 09:31 BMI result Body Mass Index 25.2 Const General: comfortable and no acute distress Orientation/consciousness: patient oriented x3 HEENT Other: Unremarkable Head: Yes normal to inspection Neck Neck: Yes normal visual inspection Chest Chest palpation & inspection: normal inspection of the chest Resp Auscultation: clear to auscultation bilaterally Cardio Palpation: normal PMI Heart sounds: S1 normal heart sound present, S2 normal heart sound present, no gallops, no murmurs and no rubs GI Palpation (GI): Soft to palpation Back/Spine/Pelvis Other: unremarkable Skin General skin exam: no rashes or lesions noted Neuro General: patient oriented x3 Extrem General: Yes normal to inspection Psych Mental Status: mental status grossly normal Assessment & Plan Assessment & Plan (1) Atherosclerotic cardiovascular disease: Code(s): I25.10 - Atherosclerotic heart disease of [place] coronary artery without angina pectoris Category: Medical (2) Nicotine dependence, unspecified, uncomplicated: Comment: (1/2ppd x 40+yrs, 20+PYH) Code(s): F17.200 - Nicotine dependence, unspecified, uncomplicated Category: Medical (3) Leg swelling: Code(s): M79.89 - Other specified soft tissue disorders Category: Medical Plan Based on prior chest CT scan, description of stent in the LAD which is what she might have had in 2004. Otherwise, description of emphysema. In the most recent chest x-ray, interstitial changes suggesting COPD/emphysema. Aortic atherosclerosis. In the echocardiogram, LVEF is 60-65%. Question of basal inferior hypokinesis. No significant valvular findings. Some pulmonary hypertension with RVSP of 46 mm Hg. IVC thought to be normal size and with appropriate respiratory variation. Sleep study is negative for LOUISE. However, nocturnal hypoxemia noted. With regard to coronary disease, she has got no overt angina. Continue aspirin and statins. With COPD and mobility issues, not a treadmill candidate. With seizure history, not suitable for Lexiscan either as it might lower the seizure threshold than provoke episodes. We will monitor clinically. With regard to leg swelling, suspect more so of dependent edema, as IVC is of normal size with normal respiratory variation. Try foot elevation, compression stockings. With regard to the nocturnal hypoxemia, recommendation was O2 supplementation. 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 Discussion Notes During the consultation, I discussed the importance of smoking cessation with the patient to reduce her cardiovascular risk and prevent further myocardial infarctions. We also reviewed her history of myocardial infarction and the need for close monitoring of any chest pain or related symptoms. The patient was advised to reassess the need for oxygen therapy with geophysical prospecting surveyor, due to her hypoxemia. Patient was informed and verbally consented to the use of an ambient scribe for clinic note documentation during this visit. Coding Level of Care Code New Pt Level 4 (93556) Complex EM visit Add On G2211 Diagnoses Atherosclerotic cardiovascular disease I25.10 Nicotine dependence, unspecified, uncomplicated F17.200 Leg swelling M79.89
--- OUTSIDE RECORDS SUMMARY | 2025-08-15 10:38 | XMS_ITS | Clinical Summary ---
Author Organization [facility] Address [address] [place] [address] Phone Care Team Providers Care Evaporator Name Role Phone Srikanth Palomares NP Primary Care Provider Allergies No known active allergies Social History Tobacco Use Types Packs/Day Years [...] Last Done Comments Breast Cancer Screening 1964 Colorectal Cancer Screening: Colonoscopy 1964 Cervical Cancer Screening: Pap Smear 1985 Cholesterol Screening (Lipid Panel) 09/07/2022 HIV Screening 09/07/2022 Hepatitis C Screening 09/07/2022 Medicare Annual Wellness Visit 09/07/2022 Social Influencers of Health Screening 09/07/2022 Depression Screening 10/10/2024 Zoster Vaccines (2 of 2) 05/15/2025 03/20/2025 COVID-19 Vaccine ( - season) 2025 11/03/2021, 03/08/2021, 02/08/2021 Influenza [...] Procedure Name Priority Date/Time Associated Diagnosis Comments BASIC METABOLIC PANEL STAT 05/13/2025 7:32 PM EDT from Last 3 Months or Most Recently Relevant to Health Maintenance Results * Basic metabolic panel (05/13/2025 7:32 PM EDT) Sodium 137 133 - 145 mmol/L LAB CHEMISTRY METHOD 05/13/2025 8:23 PM EDT [facility] Potassium 4.0 3.5 - 5.5 mmol/L LAB CHEMISTRY METHOD 05/13/2025 8:23 PM EDT [facility] Chloride 100 96 - 110 mmol/L LAB CHEMISTRY METHOD 05/13/2025 8:23 PM [facility] CO2 30 21 - 32 mmol/L LAB CHEMISTRY METHOD 05/13/2025 8:23 PM [facility] Anion Gap 7 3 - 11 LAB CHEMISTRY METHOD 05/13/2025 8:23 PM [facility] Glucose 88 70 - 100 mg/dL LAB CHEMISTRY METHOD 05/13/2025 8:23 PM [facility] BUN 7 5 - 25 mg/dL LAB CHEMISTRY METHOD 05/13/2025 8:23 PM [facility] Creatinine 0.72 0.50 - 1.10 mg/dL LAB CHEMISTRY METHOD 05/13/2025 8:23 PM [facility] eGFR 96 >=60 mL/min/1. 73m2 LAB CHEMISTRY METHOD 05/13/2025 8:23 PM [facility] Comment:Calculation based on the Chronic Kidney Disease Epidemiology Collaboration (CKD-EPI) equation refit without adjustment for race. BUN/Creatinine Ratio 9.7 LAB CHEMISTRY METHOD 05/13/2025 8:23 PM [facility] Calcium 8.7 8.5 - 10.5 mg/dL LAB CHEMISTRY METHOD 05/13/2025 8:23 PM [facility] Blood Venous blood specimen / Unknown Venipuncture / Unknown 05/13/2025 7:32 PM EDT 05/13/2025 7:53 PM EDT us Srikanth Cornejo MD LAB BLOOD ORDERABLES Final Resul t [facility] [address] [place] [address], [place] [phone] from Last 3 Months or Most Recently Relevant to Health Maintenance Insurance MEDICARE MEDICAID - [place] Advance Directives Documents on File Type Date Recorded Patient Public Health Aide Expl anation Health Care Decision (hx) 09/18/2020 AD LAUREANO DIRECTIVE Health Care Decision (hx) 09/18/2020 AD LAUREANO DIRECTIVE Health Care Decision (hx) 09/18/2020 AD LAUREANO DIRECTIVE Care Teams Evaporator Relationship Specialty Start Date End Date Srikanth Palomares NP [address], [place] PCP - General Family Medicine 05/13/25
--- OUTSIDE RECORDS SUMMARY | 2025-08-15 10:39 | XMS_ITS | Continuity of Care Document ---
Author Organization [facility] Address [address] [place] [address] Phone [phone] Social History Type Date Description Comments Sex Female Sex Unknown Medical Devices Description No Information Available Encounters Description No Information Available Assessments Description No Information Available Plan of Treatment No Information Available Functional Status Description No Information Available Mental Status Description No Information Available Referrals Description No Information Available
== END 2025-08-15 10:04 | disposition home or self-care (01) ==
LOC: HO.HCS 09:30
PROVIDERS: PCP Nurse Practitioner Family; Visit Provider Internal Medicine
DX: I25.10 Atherosclerotic heart disease of native coronary artery without angina pectoris (principal); F17.200 Nicotine dependence, unspecified, uncomplicated; M79.89 Other specified soft tissue disorders
CPT/HCPCS: 99214; G2211

== ENCOUNTER → 2025-08-15 09:29 | Outpatient (BNVA) | payer MEDICARE, MEDICAID, SELFPAY | PROVIDERS: PCP Nurse Practitioner Family; Visit Provider Internal Medicine | DX: I11.0 Hypertensive heart disease with heart failure (principal); Z72.0 Tobacco use; I25.10 Atherosclerotic heart disease of native coronary artery without angina pectoris; Z95.5 Presence of coronary angioplasty implant and graft; M79.89 Other specified soft tissue disorders; Z79.82 Long term (current) use of aspirin | CPT/HCPCS: 99212 ==

== ENCOUNTER 2025-08-28 14:09 | Outpatient (AMB) | payer MEDICARE, MEDICAID, SELFPAY ==
[2025-08-28 14:16] VITALS: BP 120/64; PULSE 69; RESP 16; TEMP 36.7; O2SAT 96; BMI 25.1
--- NOTE | 2025-08-28 14:16 | A.OFFPC_ITS ---
Vital Signs 08/28/25 14:16 Height 4 ft 8 in Weight 112 lb BMI 25.1 BP 120/64 Blood Pressure Location Lt brachial Position Sitting Respiration 16 Pulse 69 Pulse Source Pulse Oximeter Temp 98.1 F Temp Source Oral Pulse Oximetry (%) 96 Oxygen Delivery Method Room Air Intake Visit Reasons: 4 months f/up Family Counselor Required: No Accompanied by: Self / Same As Patient Allergies latex (LATEX) Allergy (Intermediate, Verified 08/28/25 14:55) RASH morphine (MORPHINE) Allergy (Intermediate, Verified 08/28/25 14:55) SWELLING alendronate sodium (From FOSAMAX) Allergy (Unknown, Verified 08/28/25 14:55) PER H+P levetiracetam (From KEPPRA) Adverse Reaction (Intermediate, Verified 08/28/25 14:55) DICKENS phenytoin (From DILANTIN) Adverse Reaction (Intermediate, Verified 08/28/25 14:55) CANT FUNCTION Tobacco use date assessed: 08/28/25 Dental Screening Dental Screen Date: 08/28/25 Did you have a dental visit in the last 12 months?: No Did you have a dental problem in the last 6 months where you did not have access to dental care?: No Was dental information given to patient?: Patient declined HPI 4 months f/up HPI Details Chief Complaint The patient presents for follow-up of bilateral lower extremity swelling. History of Present Illness The patient is a 60-year-old female presenting for a follow-up visit for bilateral lower extremity lymphedema. She has a previous diagnosis of lymphedema from a vascular specialist, and she reports that her swelling fluctuates with the use of compression stockings. The patient also has a history of extensive tremors, especially in the bilateral upper extremities, for which she is followed by neurology. The tremors have reportedly increased since her last follow-up. using rolling walker currently Social History - Functional Status: The patient uses a rolling walker for ambulation. - Caregiver: She has a Personal Care Ass istant (DIRECTOR RETIREMENT) with her. Health Maintenance Review of Systems - Cardiovascular: Denies any increase in chest pain. - Respiratory: Denies any increase in sh ortness of breath. Physical Exam General: Cooperative, healthy appearing, comfortable, no acute distress and well developed Orientation: Patient oriented x3 Limitations: No limitations Head: Normal to inspection Ears: Hearing grossly normal bilaterally Nose: Normal external nose present Face and sinus: Normal facial exam Eyes: Appearance normal, both eyes and all related structures Neck: Normal visual inspection and Yes full ROM Respiratory: Lungs were coarse bilaterally Cardiovascular: Regular rate and rhythm. S1 and S2 plus one, two GI: Normal to inspection. Soft to palpation and nontender Skin: Dusky appearance to lower extremities Neuro: Tremors, bilateral upper extremities especially Extremities: Lymphedema to bilateral extremities, cap refill about three seconds Results Plan 1. Lymphedema The patient's bilateral lower extremity swelling appears to be lymphedema, which fluctuates with the use of compression stockings. She will be referred to the lymphedema clinic for further management. The patient is advised to continue follow-up with her vascular specialist, elevate her legs when sitting or lying d own, and use her compression stockings more frequently. 2. Tremor The patient has extensive tremors, especially in the bilateral upper extremities, which have reportedly increased. She will continue to be followed by neurology for this condition. It is recommended that she obtain an electronic scooter to assist with mobility. Discussion Notes I discussed the management of her bilateral lower extremity lymphedema, including a referral to the lymphedema clinic and continuing care with her vascular specialist. We reviewed the importance of elevating her legs and using compression stockings more regularly. I also noted her increased tremors and mobility challenges, suggesting that an electronic scooter could be a beneficial aid for her. She will continue her follow-up with neurology for tremor management. Patient Instructions - You will be referred to a special clin ic, called the lymphedema clinic, for the swelling in your legs. - Continue to see your blood vessel spec ialist (vascular specialist) as planned. - Keep your legs raised up on a pillow o r stool when you are sitting or lying down. - Please use your tight compression stoc kings more often to help with the swelli ng. - Continue to see your nerve doctor (adal nevarez) for your tremors. - An electronic scooter was recommended to help you get around more easily due to your tremors. [facility] Medical History Weakness Urinary incontinence Epigastric pain Physical deconditioning Hypomagnesemia Abdominal pain Pleuritic pain Bilateral hip pain Bilateral knee pain Esophageal stricture Screening for cervical cancer Screening for colon cancer Pain in right leg Swelling of right lower extremity Breast cancer screening, high risk patient Edema Hypoglycemia Tremor Cerebral microvascular disease Hx of hiatal hernia Tubular adenoma of colon On beta matty at home Nicotine dependence, unspecified, uncomplicated Lumbosacral pain Lumbar stenosis Lumbar radiculitis Multiple pulmonary nodules COPD (chronic obstructive pulmonary disease) Osteoporosis Hypothyroid Depression Hyperlipidemia Hypertension Myocardial infarct CAD (coronary artery disease) Intracranial arachnoid cyst Cerebral atrophy Seizure Surgical History Hx of local excision of skin lesion History of foot surgery (~2013) History of tubal ligation History of heart artery stent (~2004) History of colonoscopy (~2018) History of appendectomy S/P dilatation of esophageal stricture (~2020) History of [place] fundoplication (~2019) History of esophagogastroduodenoscopy (EGD) (~2020) Family History (Updated 08/15/25 @ 09:38 by Quentin Brandt CNA) Father Blood clots in brain Diabetes Polio Heart problem Mother Breast cancer Hiatal hernia Sister Cancer Brother Myocardial infarction Cardiac defibrillator in place Family/Other Throat cancer Stomach cancer Paternal Grandmother Cancer Social History Household Members: Other Housing: Assisted Living Facility Housing Other:: assisted living Are you a primary animal care service worker to a significant other at home: No Do you presently have visiting nurse or other home services: Yes Alcohol intake: former Comment: Quit ~2006 Patient Tobacco Use Status: Current everyday Tobacco user Tobacco use type: Cigarette Cigarette Packs Per Day: 0.5 Cigarettes Per Day: 10.0 Years Smoked: 42 e-Cigarette/Vaping Use: Never Used Second Hand Smoke Exposure: No Substance Use Type: Crack/Cocaine service: No Current occupational status: disabled Cognitive needs: Yes Hearing needs: Yes Vision needs: Yes Questionnaire PHQ-9 Over the last 2 weeks, how often have you been bothered by any of the following problems? 1. Little interest or pleasure in doing things: not at all 2. Feeling down, depressed, or hopeless: not at all 3. Trouble falling or staying asleep, or sleeping too much: more than half the days 4. Feeling tired or having little energy: more than half the days 5. Poor appetite or overeating: not at all 6. Feeling bad about yourself - or that you are a failure or have let yourself or your family down: not at all 7. Trouble concentrating on things, such as reading the newspaper or watching television: several days 8. Moving or speaking so slowly that other people could have noticed. Or the opposite - being so fidgety or restless that you have been moving around a lot more than usual: not at all 9. Thoughts that you would be better off or of hurting yourself in some way: not at all Total score: 5 Depression Screening Interpretation: Negative Depression Screening Done: Yes 28536 - PHQ-9 Billing: Yes Source: Developed by Drs. Alex Cerna, Clara Worthy, Kaushik Kilgore and colleagues, with an educational misti from [employer]. Thrive Questionnaire Date Thrive assessed: 12/10/24 I am a: Patient What is your living situation today?: I have a steady place to live Within the past 12 months, did the food you bought not last and you didn't have the money to get more?: Sometimes True Within the past 12 months, did you worry whether your food would run out before you got money to buy more?: Sometimes True Do you have trouble paying for medicines?: Yes Do you have trouble getting transportation to medical appointments?: Yes Do you have trouble paying your heating and electricity bill?: No Do you have trouble taking care of your child, family member or friend?: No Do you have trouble with day-to-day activities such as bathing, preparing meals, shopping, managing finances, etc.?: Yes Are you currently unemployed and looking for a job?: No Are you interested in more education?: No Currently or been in a relationship where the following occur: I choose not to answer THRIVE Score: 3 DOMINGO-7 AMB Questionnaire DOMINGO-7 Date DOMINGO - 7 assessed: 08/28/25 Feeling nervous, anxious, or on edge: 0 = Not at all Not being able to stop or control worryin = Not at all Worrying too much about different things: 0 = Not at all Trouble relaxin = Not at all Being so restless that it is hard to sit still: 0 = Not at all Becoming easily annoyed or irritable: 0 = Not at all Feeling afraid as if something awful might happen: 0 = Not at all Total DOMINGO-7 score (0-4 normal; 5-9 mild; 10-14 moderate; 15-21 severe): 0 Source: Developed by Drs. Alex Cerna, Clara Worthy, Kaushik Kilgore and colleagues, with an educational misti from [employer]. DOMINGO-7 Assessment Billing DOMINGO-7 Assessment Tool: DOMINGO-7 Assessment 51420 Physical exam (Primary Care) Vital Signs: Last Vital Signs Temp 98.1 F 08/28/25 14:16 Pulse 69 08/28/25 14:16 Resp 16 08/28/25 14:16 BP 120/64 08/28/25 14:16 Pulse Ox 96 08/28/25 14:16 Oxygen Delivery Method Room Air 08/28/25 14:16 BMI result Body Mass Index 25.1 Tobacco/Smoking Status: Tobacco use Status Tobacco use date assessed 08/28/25 08/28/25 14:56 Patient Tobacco Use Status Current everyday Tobacco 08/28/25 14:17 Tobacco use type Cigarette 08/28/25 14:17 e-Cigarette/Vaping Use Never Used 08/28/25 14:17 PHQ-9: PHQ-9 Score PHQ-9: Total score 5 08/28/25 14:56 Depression Screening Interpretation: Negative Thrive Assessment: Date of Thrive Assessment Date Thrive assessed 12/10/24 08/28/25 14:17 Currently or been in a relationship where the following occur: I choose not to answer Coding Level of Care Code Est Pt Level 3 (81891) Diagnoses Lymphedema I89.0 Leg swelling M79.89 Tremor R25.1 Additional Codes DOMINGO-7 Assessment Billing - DOMINGO-7 Assessment Tool: DOMINGO-7 Assessment 36910 ([id number]) PHQ-9 - 58706 - PHQ-9 Billing: Yes ([id number]) Assessment & Plan Assessment & Plan (1) Lymphedema: Code(s): I89.0 - Lymphedema, not elsewhere classified Category: Medical (2) Leg swelling: Code(s): M79.89 - Other specified soft tissue disorders Category: Medical (3) Tremor: Code(s): R25.1 - Tremor, unspecified Category: Medical Plan . Orders: Referrals Lymphedema Clinic Referral I89.0 - Lymphedema, not elsewhere classified
--- OUTSIDE RECORDS SUMMARY | 2025-08-29 02:37 | XMS_ITS | Continuity of Care Document ---
Author Organization [facility] Address [address] [place] [address] Phone [phone] Social History Type Date Description Comments Sex Female Sex Unknown Medical Devices Description No Information Available Encounters Description No Information Available Assessments Description No Information Available Plan of Treatment No Information Available Functional Status Description No Information Available Mental Status Description No Information Available Referrals Description No Information Available
== END 2025-08-28 16:09 | disposition home or self-care (01) ==
PROVIDERS: PCP Nurse Practitioner Family; Visit Provider Nurse Practitioner Family
DX: I89.0 Lymphedema, not elsewhere classified (principal); M79.89 Other specified soft tissue disorders; R25.1 Tremor, unspecified

== ENCOUNTER → 2025-08-28 14:09 | Outpatient (BNVA) | payer MEDICARE, MEDICAID, SELFPAY | PROVIDERS: PCP Nurse Practitioner Family; Visit Provider Nurse Practitioner Family | DX: M79.89 Other specified soft tissue disorders (principal); R25.1 Tremor, unspecified | CPT/HCPCS: 96127; 99212 ==

== ENCOUNTER 2025-10-01 12:29 | Outpatient (AMB) | payer MEDICARE, MEDICAID, SELFPAY ==
--- NOTE | 2025-10-01 12:41 | A.OFFVIS_ITS ---
Vital Signs 10/01/25 12:46 Height 4 ft 8 in Weight 107 lb 9.369 oz BMI 24.1 BP 130/60 Blood Pressure Location Rt brachial Position Sitting Pulse 64 Pulse Source Pulse Oximeter Intake Visit Reasons: chest pain Glassware Engraver Required: No Accompanied by: Daughter Allergies latex (LATEX) Allergy (Intermediate, Verified 08/28/25 14:55) RASH morphine (MORPHINE) Allergy (Intermediate, Verified 08/28/25 14:55) SWELLING alendronate sodium (From FOSAMAX) Allergy (Unknown, Verified 08/28/25 14:55) PER H+P levetiracetam (From KEPPRA) Adverse Reaction (Intermediate, Verified 08/28/25 14:55) DICKENS phenytoin (From DILANTIN) Adverse Reaction (Intermediate, Verified 08/28/25 14:55) CANT FUNCTION Medication List - Last Reconciled 10/01/25 by Cedric Alston MD albuterol sulfate 90 mcg/actuation (Ventolin HFA) 2 puffs inhalation Q6H PRN aspirin 81 mg PO DAILY 90 days atorvastatin 80 mg PO DAILY 90 days [bedside commode As directed] calcium carb, citrate-vit D3 600 mg-12.5 mcg (500 unit) ER (Citracal-D3 Slow Release) 1 tab PO DAILY clonazepam mg PO PRN [disposable brief-pull ups As directed] divalproex ER 500 mg PO TID doxepin 10 mg PO BEDTIME [elevated toilet seat As directed] kclfgyrjofq-fyvcmjhfx-tnimeyvx 200-62.5-25 mcg (Trelegy Ellipta) 1 inh inhalation DAILY Forteo (teriparatide) 20 mcg (0.08 mL) subcut DAILY NS ipratropium-albuterol 0.5 mg-3 mg(2.5 mg base)/3 mL 3 mL inhalation Q6-8H PRN lansoprazole 30 mg PO BID levothyroxine 100 mcg PO DAILY loperamide 2 mg PO Q6H PRN magnesium oxide 500 mg PO DAILY metoclopramide HCl 10 mg PO QID nebulizers As directed for updraft treatments, with supplies pen needle, diabetic (Comfort EZ Pen [place]) As directed inject once a day pravastatin 40 mg PO DAILY primidone 50 mg PO TID sertraline 200 mg PO QAM [versa frame for toilet As directed] zolpidem 10 mg PO BEDTIME HPI Comments Details: Yuli returns for follow-up. Recently seen in consultation regarding coronary disease. It seems that she has had a myocardial infarction around 2004 and apparently had stent placement at that time. She is a chronic smoker, still smokes and also has COPD. No clear-cut exertional angina but recently had an episode of discomfort in the chest and back as well as left shoulder but after that she threw up a lot and hence not clear if it is a GI episode or not. It was isolated incident and nothing since. [facility] Medical History Weakness Urinary incontinence Epigastric pain Physical deconditioning Hypomagnesemia Abdominal pain Pleuritic pain Bilateral hip pain Bilateral knee pain Esophageal stricture Screening for cervical cancer Screening for colon cancer Pain in right leg Swelling of right lower extremity Breast cancer screening, high risk patient Edema Hypoglycemia Tremor Cerebral microvascular disease Hx of hiatal hernia Tubular adenoma of colon On beta matty at home Nicotine dependence, unspecified, uncomplicated Lumbosacral pain Lumbar stenosis Lumbar radiculitis Multiple pulmonary nodules COPD (chronic obstructive pulmonary disease) Osteoporosis Hypothyroid Depression Hyperlipidemia Hypertension Myocardial infarct CAD (coronary artery disease) Intracranial arachnoid cyst Cerebral atrophy Seizure Surgical History Hx of local excision of skin lesion History of foot surgery (~2013) History of tubal ligation History of heart artery stent (~2004) History of colonoscopy (~2018) History of appendectomy S/P dilatation of esophageal stricture (~2020) History of [place] fundoplication (~2019) History of esophagogastroduodenoscopy (EGD) (~2020) Family History Father Blood clots in brain Diabetes Polio Heart problem Mother Breast cancer Hiatal hernia Sister Cancer Brother Myocardial infarction Cardiac defibrillator in place Family/Other Throat cancer Stomach cancer Paternal Grandmother Cancer Social History Household Members: Other Housing: Assisted Living Facility Housing Other:: assisted living Are you a primary healthcare consulting manager to a significant other at home: No Do you presently have visiting nurse or other home services: Yes Alcohol intake: former Comment: Quit ~2006 Patient Tobacco Use Status: Current everyday Tobacco user Tobacco use type: Cigarette Cigarette Packs Per Day: 0.5 Cigarettes Per Day: 10.0 Years Smoked: 42 e-Cigarette/Vaping Use: Never Used Second Hand Smoke Exposure: No Substance Use Type: Crack/Cocaine service: No Current occupational status: disabled Cognitive needs: Yes Hearing needs: Yes Vision needs: Yes Review of Systems Const Denies chills, Denies fatigue, Denies fever(s), Denies frequent falls, Denies weakness, Denies weight gain and Denies weight loss ENT Denies dizziness Card Denies chest pain, Denies leg edema, Denies lightheadedness, Denies palpitations, Denies dyspnea and Denies dyspnea on exertion Resp Denies cough, Denies dyspnea and Denies dyspnea on exertion GI Denies hematochezia Musc Denies abnormal gait, Denies muscle weakness, Denies numbness, Denies radiating pain into limb and Denies tingling Neuro Denies abnormal gait, Denies dizziness, Denies frequent falls, Denies numbness, Denies tingling and Denies weakness Endo Denies fatigue and Denies palpitations Physical Exam Vital Signs: Last Vital Signs Pulse 64 10/01/25 12:46 BP 130/60 10/01/25 12:46 BMI result Body Mass Index 24.1 Const General: comfortable and no acute distress Orientation/consciousness: patient oriented x3 HEENT Other: Unremarkable Head: Yes normal to inspection Neck Neck: Yes normal visual inspection Chest Chest palpation & inspection: normal inspection of the chest Resp Auscultation: clear to auscultation bilaterally Cardio Palpation: normal PMI Heart sounds: S1 normal heart sound present, S2 normal heart sound present, no gallops, no murmurs and no rubs GI Palpation (GI): Soft to palpation Back/Spine/Pelvis Other: unremarkable Skin General skin exam: no rashes or lesions noted Neuro Other: Tremors+ General: patient oriented x3 Extrem Other: mild swelling LE+ General: Yes normal to inspection Psych Mental Status: mental status grossly normal Office Procedures EKG Details: EKG with sinus rhythm at 64/Min; no ischemic changes; [place] [address]-Tjhnzvacnnzukrmkz, Complete Assessment & Plan Assessment & Plan (1) Atherosclerotic cardiovascular disease: Code(s): I25.10 - Atherosclerotic heart disease of [place] coronary artery without angina pectoris Category: Medical (2) Nicotine dependence, unspecified, uncomplicated: Comment: (1/2ppd x 40+yrs, 20+PYH) Code(s): F17.200 - Nicotine dependence, unspecified, uncomplicated Category: Medical (3) Leg swelling: Code(s): M79.89 - Other specified soft tissue disorders Category: Medical Plan Based on prior chest CT scan, description of stent in the LAD which is what she might have had in 2004. Otherwise, description of emphysema. In the most recent chest x-ray, interstitial changes suggesting COPD/emphysema. Aortic atherosclerosis. In the echocardiogram, LVEF is 60-65%. Question of basal inferior hypokinesis. No significant valvular findings. Some pulmonary hypertension with RVSP of 46 mm Hg. IVC thought to be normal size and with appropriate respiratory variation. Sleep study is negative for LOUISE. However, nocturnal hypoxemia noted. With regard to coronary disease, continue aspirin and statins. With COPD and mobility issues, not a treadmill candidate. With seizure history, not suitable for Lexiscan either as it might lower the seizure threshold and provoke episodes. Additionally, she has frequent tremors and unlikely to lie still for any exam. We will monitor clinically. She will need to seek emergency care as needed and we discussed that specifically today. With regard to leg swelling, suspect more so of dependent edema, as IVC is of normal size with normal respiratory variation. Try foot elevation, compression stockings. With regard to the nocturnal hypoxemia, recommendation was O2 supplementation. Advised her to discuss that with her own artificial candy maker. Discussion Notes: I explained that due to her inability to walk and her seizure disorder as well as tremors, she is not a suitable candidate for either a physical or chemical stress test. Therefore, we will have to manage her condition as issues arise. I am prescribing nitroglycerin and have advised her to call 911 if chest pain persists. We also touched on the importance of smoking cessation for her heart and leg health. Patient was informed and verbally consented to the use of an ambient scribe for clinic note documentation during this visit. Medications: New nitroglycerin do not exceed 3 doses per episode 0.4 mg sublingual Q5M PRN 30 tabs 5RF chest pain R07.2 - Precordial pain Patient Instructions: - I am sending a prescription for nitroglycerin. If you have chest pain, use as directed. - If you use 2 nitroglycerin tablets and your chest pain does not go away, you must call 911 immediately. - If you have chest pain that does not go away, call us or call 911 for emergency help. - Quitting smoking is very important for your health and might help your leg symptoms. Coding Level of Care Code Est Pt Level 4 (51125) Add On Problem Visit Only Diagnoses Atherosclerotic cardiovascular disease I25.10 Nicotine dependence, unspecified, uncomplicated F17.200 Leg swelling M79.89 CPT Codes EKG - CPT: 20815-Thveobisaivzfkwdw, Complete ([id number])
[2025-10-01 12:46] VITALS: BP 130/60; PULSE 64; BMI 24.1
--- OUTSIDE RECORDS SUMMARY | 2025-10-01 13:33 | XMS_ITS | Data Portability ---
Author Organization [facility] [address] [facility] [address] [place] [address] Care Team Providers [facility] Name Role Phone Unavailable Primary Care Provider [phone] SILVESTRE CARY Referring Provider ANA GODINEZ Primary Care Provider [phone] Assessment Encounter Date Assessment Date Assessment LastModified [...] has been made and she needs a straight truck driver on the day of the [...] has been made and she needs a straight truck driver on the day of the [...] has been made and she needs a straight truck driver on the day of the [...] By Organization Details Last Modified Time 12/04/2018 [id number] She was advised to continue with activities as tolerated. [email or web address] Not available 12/04/2018 10:03:43 12/19/2018 [id number] She was advised to continue with activities as tolerated [email or web address] Not available 12/19/2018 10:40:55 08/04/2020 [id number] She was advised to continue with activities as tolerated. Telehealth visit: The patient was located at home for this telephone electronic visit and gave consent for this visit to be conducted via telehealth. 15 minutes was spent on this call and greater than 50% of the visit was spent on counseling and coordination of care. [email or web address] Not available 08/04/2020 09:57:58 09/10/2020 [id number] She was advised to continue with activities as tolerated [email or web address] Not available 09/10/2020 13:22:57 10/20/2020 [id number] She was advised to continue with activities [...] Recorded Time Degeneration of cervical intervertebral disc 35480064 Active Mora rascon MD [address] [place] [address] , [address], [facility] [place], [address], [place] [facility] 6 15:49:37 Muscle pain 26337155 Active Mora rascon MD [address] , [address], [place], [address], [place] [facility] 6 15:49:37 Cervical spondylosis without myelopathy 705096090 Active Mora rascon MD [address] , [address], [place], [place], [place] [facility] 6 15:49:37 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 Mora rascon MD [address] , [address], [place], [address], [place] [facility] 6 15:41:12 Shoulder joint pain 704241826 Active Mora rascon MD [address] , [address], [place], [address], [place] [facility] 6 15:41:12 Spinal stenosis of lumbar region 24568682 Active 2016 Mora rascon MD [address] , [address], [place], [address], [place] [facility] 7 09:23:41 Displacement of lumbar intervertebral disc without myelopathy 79780977 Active 2016 Mora rascon MD [address] , [address], [place], [address], [place] [facility] 7 09:23:42 Lumbosacral radiculitis 88212082 Active 2016 Mora rascon MD [address] , [address], [place], [address], [place] [facility] 7 09:23:46 Problem Notes None recorded. Procedures Surgical History Date Name Laterality Status Provider Name and Address Organization Details Recorded Time 09/10/20 20 Lumbar Epidural steroid injection under fluoroscopic guidance completed Mora Reilly MD [address] [facility] , [address], [place], [address], [place] [facility] 09/10/2020 13:23:36 12/20/19 19 Lumbar Epidural steroid injection under fluoroscopic guidance completed Mora Reilly MD [address] [facility] , [address], [place], [address], [place] [facility] 12/19/2018 10:41:30 02/29/20 18 Lumbar Epidural steroid injection under fluoroscopic guidance completed Mora Reilly MD [address] [facility] , [address], [place], [address], [place] [facility] 02/28/2018 15:56:59 09/21/20 17 Lumbar Epidural steroid injection under fluoroscopic guidance completed Mora Reilly MD [address] [facility] , [address], [place], [address], [place] [facility] 09/22/2017 08:35:14 07/27/20 17 Lumbar Epidural steroid injection under fluoroscopic guidance completed Mora Reilly MD [address] [facility] , [address], [place], [address], [place] [facility] 07/29/2017 08:55:44 07/30/20 16 Trigger Point Injections under ultrasound guidance completed Mora Reilly MD [address] [facility] , [address], [place], [address], [place] [facility] 08/14/2016 19:23:11 07/01/20 16 Costochondral steroid injection under ultrasound guidance. completed Mora Reilly MD [address] [facility] , [address], [place], [address], [place] [facility] 07/01/2016 09:57:07 06/17/20 16 Trigger Point Injections under ultrasound guidance completed Mora Reilly MD [address] [facility] , [address], [place], [address], [place] [facility] 06/19/2016 10:54:38 06/02/20 16 Trigger Point Injections under ultrasound guidance completed Mora Reilly MD [address] , [address], [place], [address], [place] [facility] 06/02/2016 15:50:51 08/13/20 15 Costochondral steroid injection under ultrasound guidance. completed Mora Reilly MD [address] , [address], [place], [address], [place] [facility] 08/14/2015 09:44:42 05/29/20 15 Costochondral steroid injection under ultrasound guidance. completed Mora Reilly MD [address] , [address], [place], [address], [place] [facility] 05/29/2015 12:01:41 02/26/20 15 Costochondral steroid injection under ultrasound guidance. completed Mora Reilly MD [address] , [address], [place], [address], [place] [facility] 02/25/2015 11:18:19 10/01/20 14 Costochondral steroid injection under ultrasound guidance. completed Mora Reilly MD [address] , [address], [place], [address], [place] [facility] 10/11/2014 15:19:47 09/03/20 14 Costochondral steroid injection under ultrasound guidance. completed Mora Reilly MD [address] , [address], [place], [address], [place] [facility] 09/03/2014 11:25:05 08/08/20 14 Costochondral steroid injection under ultrasound guidance. completed Mora Reilly MD [address] , [address], [place], [address], [place] [facility] 08/08/2014 15:58:12 02/20/20 13 Sacroiliac Joint Steroid Injections, using Fluoroscopy completed Mora Reilly MD [address] , [address], [place], [address], [place] [facility] 02/20/2013 09:59:03 11/20/19 13 Sacroiliac Joint Steroid Injections, using Fluoroscopy completed Mora Reilly MD [address] , [address], [place], [address], [place] [facility] 11/20/2012 15:55:16 10/18/19 13 Subacromial bursal injection completed Mora Reilly MD [address] , [address], [place], [address], [place] [facility] 10/19/2012 13:28:34 09/18/20 12 Sacroiliac Joint Steroid Injections, using Fluoroscopy completed Mora Reilly MD [address] , [address], [place], [address], [place] [facility] 09/19/2012 08:48:59 Other completed Denice Moses [place] - [facility] 09/13/2012 11:07:04 Tubal Ligation completed Denice Smithzier [place] - [facility] 09/13/2012 11:07:04 Tonsillectomy completed Denice Smithzier [place] [facility] 09/13/2012 11:07:04 Appendectomy completed Denice Smithzier [place] - [facility] 09/13/2012 11:07:04 Imaging Results None recorded. Procedure Notes None recorded. Medical Equipment None Reported. Allergies Allergen ID Allergen Name Allergen Category Reaction Reaction Severity Criticality Documentation Date Start Date Code Code System Note Provider Name and Address Organization Details Recorded Time 76819 Keppra medicatio n Not available Not available Not available 05/29/2015 67126 7 RxNorm Sever e Menta tion issue s Denice Smithzier null, [place] [facility] 5 10:33:45 4281 morphine medicatio n Not available Not available Not available 09/13/2012 7052 RxNorm Swell ing Denice [place]zier null, [place] [facility] 2 10:58:56 4282 Dilantin medicatio n Not available Not available Not available 09/13/201221296 0 RxNorm Sever menta tion issue s Denice higgins, [place] - [facility] 2 10:58:56 [...] Not Available Not Available Not Available Afluria 2653-1757( PF) 45 mcg (15 mcg x 3)/0.5 [...] Recorded Body height Heart rate Oxygen saturation Systolic And Diastolic Provider Name and Address Organization Details Last Updated DateTime 12/04/2018 144.78 cm 70 /min 97 % 141/88 mm[Hg] [facility] 12/04/2018 09:27:59 Date Recorded Body height Heart rate Oxygen saturation Systolic And Diastolic Provider Name and Address Organization Details Last Updated DateTime 12/19/2018 144.78 cm 72 /min 98 % 124/85 mm[Hg] [facility] 12/19/2018 08:39:14 Date Recorded Heart rate Oxygen saturation Pain severity - 0-10 verbal numeric rating [Score] - Reported Systolic And Diastolic Provider Name and Address Organization Details Last Updated DateTime 09/10/2020 69 /min 96 % 10 154/96 mm[Hg] Connie Morin [facility] - [facility] 09/10/2020 13:01:58 Social History Question Answer Notes LastModified by Organizat ion Details LastModified Time Tobacco Smoking Status Current Every Day Smoker Not Available [employer] 07/25/2020 03:16:10 Are You Blind Or Do You Have Difficulty Seeing? No [id number] Information not available 07/25/2020 Are You Deaf Or Do You Have Serious Difficulty Hearing? Yes [id number] Information not available 07/25/2020 Which Illicit Or Recreational Drugs Have You Used? No Sober X 4 1/2 Years [id number] Information not available 07/25/2020 Education 12 Some College Information not available 09/13/2012 What Is The Highest Grade Or Level Of School You Have Completed Or The Highest Degree You Have Received? MA48901-5 [id number] Information not available 07/25/2020 How Many Days Of Moderate To Strenuous Exercise, Like A Brisk Walk, Did You Do In The Last 7 Days? 0 [id number] Information not available 07/25/2020 On Those Days That You Engage In Moderate To Strenuous Exercise, How Many Minutes, On Average, Do You Exercise? 2 [id number] Information not available 07/25/2020 How Hard Is It For You To Pay For The Very Basics Like Food, Housing, Medical Care, And Heating? [id number] Information not available 12/04/2018 Live Alone Or With Others? With Others House Mate Information not available 12/04/2018 Marital Status Informatio n not available 12/04/2018 What Was The Date Of Your Most Recent Tobacco Screening? 12/19/2018 [id number] Information not available 07/25/2020 Do You Have Difficulty Walking Or Climbing Stairs? Yes [id number] Information not available 07/25/2020 Sex: Unknown Functional Status Question Answer Note LastModified by Organizat ion Details LastModified Time What is your level of alcohol consumption? None [id number] Information not available 07/25/2020 Are you currently employed? No [id number] Information not available 07/25/2020 Do you have difficulty doing errands alone? 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 Yes Sometimes [id number] Information not available 07/25/2020 Mental Status Question Answer Note LastModified by Organizat ion Details LastModified Time Do you feel stressed (tense, restless, nervous, or anxious, or unable to sleep at night)? HF68035-1 [id number] Information not available 07/25/2020 Do you have difficulty concentrating, remembering or making decisions? Yes [id number] Information no t available 07/25/2020 Family History Nothing Reported. Medical History Condition Response Diabetes Y Coronary Artery Disease Y Seizures/Epilepsy Y Arthritis Y Migrane Y GERD/Reflux Y High Cholesterol Y Hypertension Y COPD Y Gynecological HistoryNo gynecological history recorded. Obstetrics History GPAL:G 0 P 0 0 0 0 Past Encounters Encounter ID Performer Location Encounter Start Date Encounter Closed Date Diagnosis/Indication Diagnosis SNOMED-CT Code Diagnosis ICD10 Code Diagnosis IMO Codes Diagnosis Note [id number] Mora Reilly MD PAIN OFFICE [address] [place] [address] 09/13/2012 10:32:36 09/13/2012 15:53:15 [id number] Mora Reilly MD PAIN OFFICE [address] [facility] [place] [address] 09/18/2012 14:40:11 09/18/2012 15:42:39 [id number] Mora Reilly MD PAIN OFFICE [address] [facility] [place] [address] 10/18/2012 13:03:22 10/18/2012 16:07:14 [id number] Mora Reilly MD PAIN OFFICE [address] [facility] [place] [address] 11/20/2012 12:53:54 11/20/2012 15:34:59 [id number] Mora Reilly MD PAIN OFFICE [address] [facility] [place] [address] 02/06/2013 10:05:10 02/06/2013 14:35:05 [id number] Mora Reilly MD [facility] PA[facility] OFFICE [address] [place] [id number] 02/19/2013 13:29:03 02/19/2013 15:51:22 [id number] Mora Reilly MD [facility] PAIN OFFICE [address] [place] [id number] 07/17/2014 08:10:56 07/30/2014 15:16:18 Tietze's disease 64231712 [id number] Mora Reilly MD [facility] PAIN OFFICE [address] [place] [id number] 08/08/2014 13:32:47 08/08/2014 15:59:34 Tietze's disease 76863292 [id number] Mora Reilly MD [facility] PA[facility] OFFICE [address] [facility] [place] [address] 09/03/2014 10:35:08 09/03/2014 11:26:47 Inflammation of sacroiliac joint 79939995 Tietze's disease 93076583 Shoulder joint pain 022290658 [id number] Mora Reilly MD [facility] PAIN OFFICE [address] [place] [address] 10/01/2014 09:40:42 10/11/2014 15:21:30 Inflammation of sacroiliac joint 13621163 Tietze's disease 25736152 Shoulder joint pain 461179802 [id number] Mora Reilly MD [facility] PAIN OFFICE [address] [place] [address] 12/04/2014 10:47:37 12/04/2014 13:15:12 Inflammation of sacroiliac joint 52049156 Tietze's disease 70581453 Shoulder joint pain 705174803 [id number] Mora Reilly MD [facility] PA[facility] [address] [facility] [place] [address] 02/25/2015 08:34:47 02/25/2015 13:20:22 Inflammation of sacroiliac joint 49290861 Tietze's disease 17926375 Shoulder joint pain 435788465 [id number] Mora Reilly MD PAIN OFFICE [address] [place] [id number] 05/29/2015 10:04:54 05/29/2015 12:03:12 Inflammation of sacroiliac joint 94231046 Tietze's disease 23712224 Shoulder joint pain 525670151 [id number] Mora Reilly MD PAIN OFFICE [address] [facility] [place] [id number] 08/13/2015 13:06:44 08/14/2015 09:45:21 Inflammation of sacroiliac joint 30237359 M46.1 Tietze's disease 0146180 9 M94.0 Shoulder joint pain 2679 35581 M25.512 [id number] Mora Reilly MD PAIN OFFICE [address] [facility] [place] [address] 12/30/2015 12:55:59 12/30/2015 13:53:52 Inflammation of sacroiliac joint 81036608 M46.1 [id number] Mora Reilly MD PAIN OFFICE [address] [facility] [place] [address] 06/02/2016 11:20:00 06/02/2016 15:51:02 Cervical spondylosis without myelopathy 286396229 M47.812 Muscle pain 07638483 M79 .1 Degenerati on of cervical intervertebral disc 58549956 M50.30 [id number] Mora Reilly MD PAIN OFFICE [address] [facility] [place] [address] 06/17/2016 08:53:49 06/19/2016 11:01:16 Cervical spondylosis without myelopathy 520030073 M47.812 Muscle pain 56640404 M79 .1 Degenerati on of cervical intervertebral disc 33895429 M50.30 [id number] Mora Reilly MD PAIN OFFICE [address] [facility] [place] [address] 07/01/2016 09:26:06 07/01/2016 13:27:19 Inflammation of sacroiliac joint 94313469 M46.1 Tietze's disease 1116630 9 M94.0 Shoulder joint pain 2679 59941 M25.512 [id number] Mora Reilly MD PAIN OFFICE [address] [place] [address] 07/30/2016 09:08:52 08/22/2016 11:46:05 Cervical spondylosis without myelopathy 622884088 M47.812 Muscle pain 78904942 M79 .1 Degenerati on of cervical intervertebral disc 26054587 M50.30 [id number] Mora Reilly MD [facility] PAIN OFFICE [address] [place] [address] 07/07/2017 08:16:05 07/07/2017 09:24:56 Lumbosacral radiculitis 44985197 M54.17 Spinal abram nosis of lumbar region 51029147 M48.06 Displaceme nt of lumbar intervertebral disc without myelopathy 78430997 M51.26 Inflammati on of sacroiliac joint 89422590 M46.1 [id number] oMra Reilly MD PAIN OFFICE [address] [place] [address] 07/27/2017 09:52:38 07/29/2017 14:32:39 Lumbosacral radiculitis 15925005 M54.17 Spinal abram nosis of lumbar region 57160649 M48.062 Displaceme nt of lumbar intervertebral disc without myelopathy 82451536 M51.26 Inflammati on of sacroiliac joint 86250697 M46.1 [id number] Mora Reilly MD PAIN OFFICE [address] [place] [address] 08/29/2017 09:17:14 08/29/2017 10:31:46 Lumbosacral radiculitis 08763732 M54.17 Spinal abram nosis of lumbar region 10374919 M48.062 Displaceme nt of lumbar intervertebral disc without myelopathy 17967189 M51.26 Inflammati on of sacroiliac joint 09785105 M46.1 [id number] Mora Reilly MD [facility] PAIN OFFICE [address] [place] [address] 09/21/2017 11:43:42 09/22/2017 09:27:57 Lumbosacral radiculitis 07978038 M54.17 Spinal abram nosis of lumbar region 77420572 M48.062 Displaceme nt of lumbar intervertebral disc without myelopathy 72021234 M51.26 Inflammati on of sacroiliac joint 77555994 M46.1 [id number] Mora Reilly MD PAIN OFFICE [address] [place] [address] 02/28/2018 13:30:09 02/28/2018 15:59:37 Lumbosacral radiculitis 33930377 M54.17 Spinal abram nosis of lumbar region 81316630 M48.062 Displaceme nt of lumbar intervertebral disc without myelopathy 81923640 M51.26 Inflammati on of sacroiliac joint 20437299 M46.1 [id number] Mora Reilly MD PAIN OFFICE [address] [place] [address] 12/04/2018 09:17:20 12/04/2018 10:07:57 Lumbosacral radiculitis 51243866 M54.17 Spinal abram nosis of lumbar region 03100965 M48.062 Displaceme nt of lumbar intervertebral disc without myelopathy 39708006 M51.26 Inflammati on of sacroiliac joint 76316472 M46.1 [id number] Mora Reilly MD [facility] PA[facility] OFF[facility] [address] [place] [address] 12/19/2018 08:26:46 12/19/2018 10:59:08 Lumbosacral radiculitis 12986497 M54.17 Spinal abram nosis of lumbar region 36859257 M48.062 Displaceme nt of lumbar intervertebral disc without myelopathy 16627473 M51.26 Inflammati on of sacroiliac joint 59644857 M46.1 [id number] Mora Reilly MD PAIN OFFICE [address] [place] [address] 08/04/2020 09:52:18 08/04/2020 13:06:36 Displacement of lumbar intervertebral disc without myelopathy 44655284 M51.26 Lumbosacra l radiculitis 33295625 M54.17 Spinal abram nosis of lumbar region 97895293 M48.062 Inflammati on of sacroiliac joint 89623480 M46.1 [id number] Mora Reilly MD [facility] PAIN OFFICE [address] [facility] [place] [id number] 09/10/2020 12:51:41 09/10/2020 13:26:05 Lumbosacral radiculitis 37430415 M54.17 Spinal abram nosis of lumbar region 01050932 M48.062 Displaceme nt of lumbar intervertebral disc without myelopathy 73089345 M51.26 Inflammati on of sacroiliac joint 22190955 M46.1 [id number] Mora Reilly MD [facility] PAIN OFFICE [address] [facility] [place] [place] [id number] 10/20/2020 09:03:15 10/20/2020 09:11:00 Displacement of lumbar intervertebral disc without myelopathy 65747844 M51.26 Lumbosacra l radiculitis 89376858 M54.17 Spinal abram nosis of lumbar region 29623438 M48.062 Inflammati on of sacroiliac joint 21376430 M46.1 Health Concerns Section Related Observation LastModified by Organization Detai ls LastModified Time None Recorded Concern Status LastModified by Organization Details LastModified Time None Recorded Advance Directives Directive None Recorded Payers Insurance Date Sequence Insurance Name Policy Number Policy Marie Covered Member ID Marie Member ID Guarantor Name 10/20/2020 1 [place] Yulidillon Rahmanllette [id number] Yuli Luishillette 10/20/2020 1 [facility] [id number] Yuli Luishillette [id number] Yuli Luishillette 10/20/2020 1 [place] [facility] Yuli A Josiahllette [id number] Yuli Bouthillette Notes Date Note Type Note Provider Name [...] or bowel incontinence. Mora Reilly MD [address] [facility] , [address], [place], [address], [place] [facility] 12/04/2018 13:52:29 12/19/2018 text/html She is here for a repeat lumbar epidural steroid injection under fluoroscopic guidance. Mora Reilly MD [address] [facility] , [address], [place], [address], [place] [facility] 12/21/2018 10:09:19 [...] or bowel incontinence. Mora Reilly MD [address] [facility] , [address], [place], [address], [place] [facility] 08/05/2020 08:21:38 09/10/2020 text/html She is here for a lumbar epidural steroid injection under fluoroscopic guidance. Mora Reilly MD [address] [facility] , [address], [place], [address], [place] [facility] 09/11/2020 16:25:02 10/20/2020 text/html This [...] bladder or bowel incontinence. Mora Reilly MD [address] [place] [address] , [address], [place], [address], [place] [facility] 10/20/2020 10:25:18 OBGyn Episode No OBEpisode recorded.
--- OUTSIDE RECORDS SUMMARY | 2025-10-01 13:33 | XMS_ITS | Clinical Summary ---
Author Organization [facility] Address [address] [place] [address] Phone Care Team Providers Care Consulting Nurse Name Role Phone Srikanth Palomares NP Primary Care Provider [phone] Allergies No known active allergies Social History Tobacco Use Types Packs/Day Years Used Date Smoking Tobacco: Never Smokeless Tobacco: Never Tobacco Cessation:Counseling Given: Not Answered Comments Unknown Sex and Gender Information Value Date Recorded Sex Assigned at Female 09/06/2025 12:32 PM EST Legal Sex Female 11:47 AM EST Gender Identity Female 09/06/2025 12:32 PM EST Sexual Orientation Straight 09/06/2025 12 :32 PM EST Last Filed Vital Signs Vital Sign Reading [...] 05/13/2025 7:12 PM EDT Plan of Treatment Upcoming Encounters Date Type Department Care Team (Late st Contact Info) Description 11/21/2025 10:00 AM EST Treatment [facility] Occupational Therapy [address] [address] Shreya Jackson P, OTR/L Health Maintenance Due Date Last Done Comments [...] mmol/L LAB CHEMISTRY METHOD 05/13/2025 8:23 PM [facility] Potassium 4.0 3.5 - 5.5 mmol/L LAB CHEMISTRY METHOD 05/13/2025 8:23 PM [facility] Chloride 100 96 - 110 mmol/L LAB CHEMISTRY METHOD 05/13/2025 8:23 PM [facility] CO2 30 21 - 32 mmol/L LAB CHEMISTRY METHOD 05/13/2025 8:23 PM [facility] Anion Gap 7 3 - 11 LAB CHEMISTRY METHOD 05/13/2025 8:23 PM [facility] Glucose 88 70 - 100 mg/dL LAB CHEMISTRY METHOD 05/13/2025 8:23 PM [facility] BUN 7 5 - 25 mg/dL LAB CHEMISTRY METHOD 05/13/2025 8:23 PM [facility] Creatinine 0.72 0.50 - 1.10 mg/dL LAB CHEMISTRY METHOD 05/13/2025 8:23 PM [facility] eGFR 96 >=60 mL/min/1. 73m2 LAB CHEMISTRY METHOD 05/13/2025 8:23 PM [facility] Comment:Calculation based on the Chronic Kidney Disease Epidemiology Collaboration (CKD-EPI) equation refit without adjustment for race. BUN/Creatinine Ratio 9.7 LAB CHEMISTRY METHOD 05/13/2025 8:23 PM [facility] Calcium 8.7 8.5 - 10.5 mg/dL LAB CHEMISTRY METHOD 05/13/2025 8:23 PM [facility] Blood Venous blood specimen / Unknown Venipuncture / Unknown 05/13/2025 7:32 PM EDT 05/13/2025 7:53 PM EDT Srikanth Cornejo MD LAB BLOOD ORDERABLES Final Resul t [facility] [address] [place] [address], from Last 3 Months or Most Recently Relevant to Health Maintenance Insurance MEDICARE [place]ICAID - [place] Advance Directives Documents on File Type Date Recorded 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
--- OUTSIDE RECORDS SUMMARY | 2025-10-01 13:33 | XMS_ITS | Continuity of Care Document ---
Author Organization [facility] Address [address] [place] [address] Phone [phone] Social History Type Date Description Comments Sex Female Sex Unknown Medical Devices Description No Information Available Encounters Description No Information Available Assessments Description No Information Available Plan of Treatment No Information Available Functional Status Description No Information Available Mental Status Description No Information Available Referrals Description No Information Available
== END 2025-10-01 13:17 | disposition home or self-care (01) ==
LOC: HO.HCS 12:30
PROVIDERS: PCP Nurse Practitioner Family; Visit Provider Internal Medicine
DX: I25.10 Atherosclerotic heart disease of native coronary artery without angina pectoris (principal); F17.200 Nicotine dependence, unspecified, uncomplicated; M79.89 Other specified soft tissue disorders
CPT/HCPCS: 93010; 99214; G2211

== ENCOUNTER → 2025-10-01 12:29 | Outpatient (BNVA) | payer MEDICARE, MEDICAID, SELFPAY | PROVIDERS: PCP Nurse Practitioner Family; Visit Provider Internal Medicine | DX: I25.10 Atherosclerotic heart disease of native coronary artery without angina pectoris (principal); F17.200 Nicotine dependence, unspecified, uncomplicated; M79.89 Other specified soft tissue disorders; Z95.5 Presence of coronary angioplasty implant and graft | CPT/HCPCS: 93005; 99212 ==